=== PATIENT | male | born 1965 | race Caucasian/White ===

== ENCOUNTER → 2016-07-28 | Outpatient (CLI) | payer BC ==
[~2016-07-28] MED LIST: ACET-1256 PO; AZIT500T26 PO; CARV25TA PO; FURO80TA63 PO; LOSA1TAB38 PO; LPT40 PO; MULT-1027 PO; OMEG10007 PO; PANT40TA PO; POTA20TA16 PO; VLT/75 PO
--- NOTE | 2016-07-28 14:43 | DIAGNOSTIC IMAGING REPORT ---
CHEST 2 VIEWS ROUTINE CLINICAL HISTORY: R06.02 Shortness of breath COMPARISON STUDY: 04/12/2016 FINDINGS: Prominent pulmonary vasculature. Mild cardiac enlargement. Permanent unipolar cardiac pacemaker/fibrillator. IMPRESSION: Congestive failure Electronically signed by: James Nelson M.D. 07/28/2016 2:42 PM Dictated Date/Time: 07/28/2016 2:41 PM
== END | disposition home or self-care (01) ==
LOC: C.RAD1850 14:29
PROVIDERS: ATTEND Internal Medicine
DX: R06.02 Shortness of breath (principal)

== ENCOUNTER → 2016-08-03 | Outpatient (CLI) | payer BC ==
[2016-08-03 17:16] LABS: BASO % 0.4 %; BASO ABS # 0.03 K/uL (0-0.2); COMPLETE YES; EOS % 4.6 %; IG% 0.3 %; LYMPH % 19.1 %; LYMPH ABS # 1.32 K/uL (1.2-3.4); MEAN CELL VOLUME 89.3 fL (80-100); MEAN CORPUSCULAR HGB CONC 33.6 g/dl (32-36); NEUT % 66.6 %; PLATELET COUNT 161 K/uL (130-400); RED BLOOD COUNT 4.03 M/uL (4.7-6.1); WHITE BLOOD COUNT 6.91 K/uL (4.8-10.8)
[2016-08-03 17:29] LABS: ALT/SGPT 26 U/L (12-78); AST/SGOT 18 U/L (15-37); BLOOD UREA NITROGEN 28 mg/dl (7-18); BUN/CREATININE RATIO 28.2 (10-20); CALCIUM 9.1 mg/dl (8.5-10.1); CARBON DIOXIDE 28 mmol/L (21-32); CHLORIDE 109 mmol/L (98-107); CREATININE 0.98 mg/dl (0.60-1.40); GLUCOSE 88 mg/dl (70-99); SODIUM 146 mmol/L (136-145)
[2016-08-03 17:31] LABS: ALB/GLOB RATIO 1.2 (0.9-2); ALKALINE PHOSPHATASE 68 U/L (45-117)
== END | disposition home or self-care (01) ==
LOC: C.LABPBG 14:13
PROVIDERS: ATTEND Internal Medicine
DX: D64.9 Anemia, unspecified (principal); I42.8 Other cardiomyopathies

== ENCOUNTER → 2016-08-16 | Outpatient (CLI) | payer BC ==
[2016-08-16 13:41] LABS: BLOOD UREA NITROGEN 27 mg/dl (7-18); BUN/CREATININE RATIO 24.6 (10-20); CALCIUM 8.7 mg/dl (8.5-10.1); CARBON DIOXIDE 27 mmol/L (21-32); CHLORIDE 109 mmol/L (98-107); GLUCOSE 109 mg/dl (70-99); POTASSIUM 4.1 mmol/L (3.5-5.1); SODIUM 145 mmol/L (136-145)
[2016-08-16 13:44] LABS: CHOLESTEROL 60 mg/dl (0-200); CHOLESTEROL/HDL RATIO 2.2; HDL CHOLESTEROL 27 mg/dl; LDL CHOLESTEROL CALCULATED 17 mg/dl; TRIGLYCERIDES 81 mg/dl (0-150); VERY LOW DENSITY LIPOPROT CALC 16 mg/dl
== END | disposition home or self-care (01) ==
LOC: C.LABPBG 09:19
PROVIDERS: ATTEND Internal Medicine
DX: Z00.00 Encounter for general adult medical examination without abnormal findings (principal); I50.20 Unspecified systolic (congestive) heart failure

== ENCOUNTER → 2016-10-26 | Outpatient (CLI) | payer BC ==
[~2016-10-26] MED LIST changes: -PANT40TA PO
[2016-10-26 18:24] LABS: BLOOD UREA NITROGEN 35 mg/dl (7-18); BUN/CREATININE RATIO 25.1 (10-20); CALCIUM 9.4 mg/dl (8.5-10.1); CARBON DIOXIDE 32 mmol/L (21-32); CHLORIDE 106 mmol/L (98-107); GLUCOSE 101 mg/dl (70-99); POTASSIUM 3.5 mmol/L (3.5-5.1); SODIUM 143 mmol/L (136-145)
== END | disposition home or self-care (01) ==
LOC: C.LABPBG 12:20
PROVIDERS: ATTEND Family Medicine
DX: I50.20 Unspecified systolic (congestive) heart failure (principal)

== ENCOUNTER → 2016-11-01 | Outpatient (CLI) | payer BC ==
[~2016-11-01] MED LIST changes: +OPTIRAY 320 IV PRN
--- NOTE | 2016-11-01 09:33 | DIAGNOSTIC IMAGING REPORT ---
CT SCAN OF THE ABDOMEN COMBO RENAL MASS PROTOCOL CLINICAL HISTORY: Indeterminant right renal lesion. Hepatomegaly. Elevated bilirubin. COMPARISON STUDY: Abdominal CT scans dated 05/02/2016 and 04/13/2016. TECHNIQUE: Before and following the IV administration of 93 cc of Optiray 320, CT scan of the abdomen is performed from the lung bases to the pelvic inlet utilizing renal mass protocol. Images are reviewed in the axial, sagittal, and coronal planes. IV contrast was administered without complication. Automated dose control exposure was utilized. CT DOSE: 3198.49 mGy.cm FINDINGS: Lung bases: The heart is enlarged and there is trace pericardial effusion. Pacemaker leads are noted. There is a small hiatal hernia. Calcified granulomas are noted at both lung bases. No airspace consolidation or pleural effusion is identified. Intralobular septal thickening suggests chronic congestive change. Liver: The contrast-enhanced liver is enlarged, measuring 24.2 cm in length. Hepatic attenuation is heterogeneous. No focal hepatic lesion is seen. There is no intrahepatic biliary ductal dilatation. The hepatic veins and portal veins are patent. Gallbladder: There are numerous calcified gallstones. The gallbladder is otherwise normal in appearance. Spleen: The spleen is enlarged, measuring 21.2 cm in length. Pancreas: Unremarkable. Adrenal glands: Unremarkable. Kidneys: There is a 3 mm nonobstructing calculus in the lower pole of the left kidney. There are 2 nonobstructing calculi in the interpolar right kidney measuring up to 7 mm. The contrast enhanced kidneys demonstrate cortical atrophy and are without hydronephrosis. The kidneys enhance and excrete symmetrically. Bilateral renal cysts measure up to 3.1 cm. Additional subcentimeter cortical hypodensities also likely represent cysts but are too small for definitive characterization. No enhancing renal cortical mass is identified. The focal heterogeneity within the interpolar right kidney seen on 05/02/2016 is no longer apparent. Mild cortical scarring is now suggested at this site. There is no evidence of urothelial lesion within the renal pelvis bilaterally or involving the proximal ureters. Abdominal vasculature: The abdominal aorta is normal in course and caliber noting mild atherosclerotic calcification. Bowel: Visualized portions of the small bowel and colon are normal in course and caliber. Peritoneum: There is trace perihepatic and perisplenic ascites. No intraperitoneal free air is seen. Numerous foci of induration within the ventral abdominal pannus are likely related to subcutaneous injections. Lymphadenopathy: None. Skeletal structures: The skeletal structures are osteopenic. No lytic or blastic lesions are seen. There are healed left anterior rib fractures. IMPRESSION: 1. There is no enhancing renal cortical mass. The focus of heterogeneity within the interpolar right kidney seen on 05/02/2016 is no longer identified. Mild cortical scarring is now suggested at this site and the prior abnormality was likely on an infectious/inflammatory basis. 2. There is no evidence of urothelial lesion within the renal pelvis bilaterally or involving the proximal ureters. 3. Bilateral nephrolithiasis. 4. Cholelithiasis. 5. Hepatosplenomegaly. 6. Trace perihepatic and perisplenic ascites. 7. Cardiomegaly. 8. Additional findings as above. Electronically signed by: Blanco Bazan M.D. 11/01/2016 9:32 AM Dictated Date/Time: 11/01/2016 9:17 AM
== END | disposition home or self-care (01) ==
LOC: C.CTS 08:48
PROVIDERS: ATTEND Physician Assistant
DX: R17 Unspecified jaundice (principal); R93.2 Abnormal findings on diagnostic imaging of liver and biliary tract; N20.0 Calculus of kidney; K80.20 Calculus of gallbladder without cholecystitis without obstruction; R16.2 Hepatomegaly with splenomegaly, not elsewhere classified; I51.7 Cardiomegaly

== ENCOUNTER → 2016-12-13 | Outpatient (CLI) | payer BC ==
[~2016-12-13] MED LIST changes: -OPTIRAY 320 IV PRN
[2016-12-13 14:03] LABS: BLOOD UREA NITROGEN 36 mg/dl (7-18); BUN/CREATININE RATIO 27.7 (10-20); CALCIUM 9.4 mg/dl (8.5-10.1); CARBON DIOXIDE 30 mmol/L (21-32); CHLORIDE 104 mmol/L (98-107); GLUCOSE 125 mg/dl (70-99); POTASSIUM 3.4 mmol/L (3.5-5.1); SODIUM 142 mmol/L (136-145)
== END | disposition home or self-care (01) ==
LOC: C.LABPBG 10:28
PROVIDERS: ATTEND Physician Assistant
DX: I50.20 Unspecified systolic (congestive) heart failure (principal)

== ENCOUNTER → 2017-03-15 | Outpatient (CLI) | payer BC ==
[2017-03-15 13:07] LABS: MEAN CELL VOLUME 92.9 fL (80-100); MEAN CORPUSCULAR HEMOGLOBIN 32.5 pg (25-34); MEAN PLATELET VOLUME 10.1 fL (7.4-10.4); PLATELET COUNT 155 K/uL (130-400); RED BLOOD COUNT 3.66 M/uL (4.7-6.1); WHITE BLOOD COUNT 6.75 K/uL (4.8-10.8)
[2017-03-15 13:45] LABS: ALT/SGPT 37 U/L (12-78); AST/SGOT 30 U/L (15-37); BLOOD UREA NITROGEN 42 mg/dl (7-18); BUN/CREATININE RATIO 28.3 (10-20); CALCIUM 8.8 mg/dl (8.5-10.1); CARBON DIOXIDE 30 mmol/L (21-32); CHLORIDE 105 mmol/L (98-107); GLUCOSE 126 mg/dl (70-99); POTASSIUM 3.3 mmol/L (3.5-5.1); SODIUM 143 mmol/L (136-145)
== END | disposition home or self-care (01) ==
LOC: C.LABPBG 10:04
PROVIDERS: ATTEND Family Medicine
DX: D64.9 Anemia, unspecified (principal); I50.9 Heart failure, unspecified; I10 Essential (primary) hypertension; E78.2 Mixed hyperlipidemia

== ENCOUNTER → 2017-05-17 | Outpatient (CLI) | payer BC ==
[2017-05-17 16:24] LABS: HEMATOCRIT 35.5 % (42-52); MEAN CELL VOLUME 91.3 fL (80-100); MEAN CORPUSCULAR HEMOGLOBIN 31.9 pg (25-34); MEAN CORPUSCULAR HGB CONC 34.9 g/dl (32-36); MEAN PLATELET VOLUME 10.4 fL (7.4-10.4); PLATELET COUNT 132 K/uL (130-400); RED BLOOD COUNT 3.89 M/uL (4.7-6.1); WHITE BLOOD COUNT 7.48 K/uL (4.8-10.8)
[2017-05-17 16:26] LABS: BASO % 0.3 %; BASO ABS # 0.02 K/uL (0-0.2); COMPLETE YES; EOS % 2.3 %; IG% 0.5 %; LYMPH % 16.4 %; LYMPH ABS # 1.23 K/uL (1.2-3.4); MONO % 8.3 %; NEUT % 72.2 %; PLT ESTIMATE DECREASED
[2017-05-17 16:27] LABS: BLOOD UREA NITROGEN 30 mg/dl (7-18); BUN/CREATININE RATIO 23.2 (10-20); CALCIUM 9.1 mg/dl (8.5-10.1); CARBON DIOXIDE 29 mmol/L (21-32); CHLORIDE 104 mmol/L (98-107); CREATININE 1.31 mg/dl (0.60-1.40); GLUCOSE 101 mg/dl (70-99); MAGNESIUM 2.1 mg/dl (1.8-2.4); POTASSIUM 3.4 mmol/L (3.5-5.1); SODIUM 140 mmol/L (136-145)
== END | disposition home or self-care (01) ==
LOC: C.LAB1850 15:30
PROVIDERS: ATTEND Physician Assistant Medical
DX: I42.8 Other cardiomyopathies (principal); I49.01 Ventricular fibrillation

== ENCOUNTER → 2017-05-29 | Outpatient (CLI) | payer BC ==
[2017-05-29 11:50] LABS: BLOOD UREA NITROGEN 34 mg/dl (7-18); BUN/CREATININE RATIO 26.4 (10-20); CALCIUM 9.2 mg/dl (8.5-10.1); CARBON DIOXIDE 32 mmol/L (21-32); CHLORIDE 104 mmol/L (98-107); CREATININE 1.29 mg/dl (0.60-1.40); GLUCOSE 124 mg/dl (70-99); POTASSIUM 3.3 mmol/L (3.5-5.1); SODIUM 142 mmol/L (136-145)
== END | disposition home or self-care (01) ==
LOC: C.LABPBG 10:20
PROVIDERS: ATTEND Physician Assistant
DX: I50.20 Unspecified systolic (congestive) heart failure (principal)

== ENCOUNTER → 2017-07-12 | Outpatient (CLI) | payer BC ==
[~2017-07-12] MED LIST changes: +CLOTCRE33 TOP; +METO5TAB25 PO
[2017-07-12 15:34] LABS: HEMATOCRIT 37.5 % (42-52); HEMOGLOBIN 13.5 g/dL (14.0-18.0); MEAN CELL VOLUME 90.1 fL (80-100); MEAN CORPUSCULAR HEMOGLOBIN 32.5 pg (25-34); MEAN PLATELET VOLUME 10.4 fL (7.4-10.4); PLATELET COUNT 155 K/uL (130-400); RED CELL DISTRIBUTION WIDTH CV 15.5 % (11.5-14.5); RED CELL DISTRIBUTION WIDTH SD 49.9 fL (36.4-46.3); WHITE BLOOD COUNT 8.44 K/uL (4.8-10.8)
[2017-07-12 15:45] LABS: BLOOD UREA NITROGEN 49 mg/dl (7-18); CALCIUM 9.9 mg/dl (8.5-10.1); CARBON DIOXIDE 31 mmol/L (21-32); CREATININE 1.49 mg/dl (0.60-1.40); GLUCOSE 109 mg/dl (70-99); POTASSIUM 3.3 mmol/L (3.5-5.1); SODIUM 139 mmol/L (136-145)
== END | disposition home or self-care (01) ==
LOC: C.LAB1850 14:10
PROVIDERS: ATTEND Internal Medicine Clinical Cardiac Electrophysiology
DX: Z01.818 Encounter for other preprocedural examination (principal)

== ENCOUNTER 2017-07-13 09:38 | Observation (INO) | payer BC ==
[~2017-07-13] VITALS: Ht 175.3 cm; Wt 144.9 kg
[~2017-07-13 09:38] MED LIST changes: -CLOTCRE33 TOP; -METO5TAB25 PO
[2017-07-13] MEDS ORDERED: CLOTCRE33 TOP (09:56)
[2017-07-13] MEDS ORDERED: METO5TAB25 PO (09:56)
--- NOTE | 2017-07-13 09:56 | History & Physical Bridge Note ---
H&P Re-Evaluation Bridge Note: I have examined the patient, reviewed the History & Physical and in the interval since the performance of the History & Physical I have noted the following changes of clinical significance: No changes noted
[2017-07-13 10:04] VITALS: BP 105/53; PULSE 60; TEMP 36.8; O2SAT 98; BMI 48.0
[2017-07-13] MEDS ORDERED: LIDOCAINE HCL 1% 20 ML VIAL ONE (10:09)
[2017-07-13] MEDS ORDERED: BUPIVACAINE 0.5 % 5 MG/1 ML MPF 30ML VIAL ONE (10:09)
[2017-07-13] MEDS ORDERED: BACITRACIN 50000 UNIT VIAL ONE (10:09)
[2017-07-13] MEDS ORDERED: MIDAZOLAM HCL 5 MG/ML 1 ML VIAL ONE ×2 (11:05→11:31)
[2017-07-13] MEDS ORDERED: FENTANYL CITRATE INJ 50 MCG/1 ML 2 ML VIAL ONE ×2 (11:05→11:31)
[2017-07-13] MEDS ORDERED: CEFAZOLIN SOD 1 GM VIAL ONE (11:07)
--- NOTE | 2017-07-13 11:16 | Pre Sedation Assessment ---
Pre Sedation Assessment General Date of Sedation: Jul 13, 2017. Vital Signs Past 12 Hours Date Time Temp Pulse Resp B/P (MAP) Pulse Ox O2 Delivery O2 Flow Rate FiO2 07/13/17 10:04 36.8 60 20 105/53 (70) 98 Room Air Review Cardiovascular: regular rate, rhythm Lungs: lungs clear Pre-Sedation Airway Assessment Smoking Status: Former Smoker Hx of Sleep Apnea: Yes Short Thick Neck: Yes Thyro-mental Distance: > 3 Finger Breadths Oral Cavity: WNL Mallampati Classification: Class I ASA Classification: Class III NPO Status Date of Last Intake of Fluids: Jul 12, 2017 Time of Last Intake of Fluids: 2029 Date of Last Intake of Solids: Jul 12, 2017 Time of Last Intake of Solids: 2029 Procedure Planning Contraindications for Sedation: None Current Medications Reviewed: Yes Notes The planned sedation has been discussed with the patient. Informed Consent was obtained. I have identified the patient, determined the appropriateness of sedation and have assessed the patient immediately prior to the procedure. All medicine(s) and interventions are by my order.
--- NOTE | 2017-07-13 12:14 | [facility] Operative Report ---
Operative Report Date of Service Jul 13, 2017. Operative Report Procedure performed: Upgrade of single chamber ICD to dual chamber ICD Staff oil expeller: Ravindra Moran MD Indication: The patient is a 52-year-old gentleman with a history of cardiomyopathy and ventricular fibrillation. He previously undergone implantation of a single-chamber ICD. He was noted in the outpatient setting to have frequent therapies for ventricular fibrillation. All of these appear to be preceded by episodes of ventricular pacing due to post PVC pauses. Programming in the outpatient setting to involve more ventricular pacing did not resolve this issue. It was felt that with the addition of an atrial lead we could avoid ventricular pacing and perhaps overdrive his intrinsic heart rate to avoid significant ventricular ectopy. Procedure in detail: The patient was informed of the risks benefits and alternatives to the intended procedure. He understood such which proceed. He was taken to the electrophysiology suite in a fasting state. A preoperative antibiotic was administered. The patient was monitored electrocardiographically throughout today's procedure and conscious sedation was administered per protocol. The left upper pectoral area is prepped and draped in usual sterile fashion. This area was anesthetized using subcutaneous administration of a xylocaine and Marcaine solution. An incision was made at this site and carried down to the previously implanted pulse generator using sharp dissection. Electrocautery was also used for dissection as well as for hemostasis. The previously implanted pulse generator and leads were then freed from the surrounding scar tissue. A partial capsulotomy was performed. The left axillary vein was subsequently accessed using modified Seldinger technique and a 7 Nigerien sheath was placed over a guidewire at this site. This sheath was used to facilitate passage of the pacing lead to the right atrium under fluoroscopic guidance. Adequate sensing and threshold parameters were obtained prior to Active fixation of the lead to the endocardial surface. The proximal portion of lead was then sutured to the prepectoralis fascia using nonabsorbable suture. The right ventricular lead was detached from the previously implanted pulse generator. The right ventricular lead and new atrial lead were then attached to a new pulse generator. The pocket was irrigated with antibiotic solution and leads and device were then placed back in the pocket the pocket was subsequently closed in 3 layers of absorbable suture. Steri-Strips and a sterile dressing were applied. The device was tested noninvasively prior to conclusion the procedure. The patient tolerated procedure well. There were no immediate complications. Equipment used: Explanted pulse generator. Circulation Crew Leader [employer]. Model number D VBC 3D 4 serial number [id number] New pulse generator: Circulation Crew Leader Medtronic. Model number DD M B1 V4 serial number [id number] New right atrial lead: Circulation Crew Leader Medtronic. Model 4. 076. Serial number [id number] Retained right ventricular lead: Circulation Crew Leader Medtronic. Model 6935 mm serial number [id number] Measured data: Right atrial lead: P-waves measured 2.1 millivolts. Pacing threshold 0.5 volts at 0.4 milliseconds with a pacing impedance of 399 Ohms Right ventricular lead: R-waves measured 18.1 millivolts. Pacing threshold was 0.75 volts at 0.4 milliseconds with a pacing impedance of 418 Ohms Impression: Successful upgrade of single-chamber ICD to dual-chamber ICD I attest to the content of the Intraoperative Record and any orders documented therein. Any exceptions are noted below.
[2017-07-13] MEDS ORDERED: ACETAMINOPHEN 325 MG TAB PO PRN (12:15)
[2017-07-13 13:10] VITALS: BP 90/48; PULSE 108; TEMP 36.4; O2SAT 94; Ht 175.3 cm; Wt 144.9 kg
[2017-07-13] MEDS ORDERED: IV FLUIDS COMPLETED PRN (13:45)
[2017-07-13] MEDS ORDERED: PNEUMOCOCCAL POLYSACCHARIDES 25 MCG/0.5 ML VIAL/SYR IM. ONE (14:15)
[2017-07-13] MEDS ORDERED: PNEUMOCOCCAL ADMINISTRATION CHARGE ONE (14:15)
[2017-07-13] MEDS: POTASSIUM CHLORIDE 20 MEQ TABCR PO SCH ×2 (14:36→20:54)
[2017-07-13] MEDS: OXYCODONE HCL IR 5 MG TAB (IMMEDIATE RELEASE) PO PRN ×2 (14:38→20:51)
[2017-07-13 16:00] VITALS: BP 108/44; PULSE 70; TEMP 36.8; O2SAT 96
[2017-07-13] MEDS: FUROSEMIDE 80 MG TAB PO SCH (16:28)
[2017-07-13 19:33] VITALS: BP 118/51; PULSE 71; TEMP 36.8; O2SAT 94
[2017-07-13] MEDS: CEFAZOLIN IV 2,000 MG in SYRINGE 0 ML IV SCH (19:55)
[2017-07-13] MEDS: CARVEDILOL 12.5 MG TAB PO SCH (20:52)
[2017-07-13] MEDS: DICLOFENAC SOD EC 75 MG TABCR PO SCH (20:53)
[2017-07-13] MEDS ORDERED: ATORVASTATIN 40 MG TAB PO SCH (21:00)
[2017-07-13] MEDS ORDERED: NURSING VERBAL MED ORDER ONE (21:30)
[2017-07-13 22:55] VITALS: BP 135/72; PULSE 70; TEMP 36.6; O2SAT 96
[2017-07-14] MEDS: OXYCODONE HCL IR 5 MG TAB (IMMEDIATE RELEASE) PO PRN (01:32)
[2017-07-14 03:00] VITALS: BP 128/76; PULSE 67; TEMP 36.4; O2SAT 97
[2017-07-14] MEDS: CEFAZOLIN IV 2,000 MG in SYRINGE 0 ML IV SCH (03:19)
--- NOTE | 2017-07-14 07:03 | DIAGNOSTIC IMAGING REPORT ---
CHEST 2 VIEWS ROUTINE CLINICAL HISTORY: EXACT TIME ORDERED Evaluate for pneumothorax and lead placement COMPARISON STUDY: 07/28/2016 FINDINGS: Currently is a permanent bipolar cardiac pacemaker/fibrillator. Secondary lead has been placed. No evidence pneumothorax. Lungs are clear. Mild stable cardiomegaly. IMPRESSION: Bipolar cardiac pacemaker/fibrillator with leads in good position. No evidence for pneumothorax. The above report was generated using voice recognition software. It may contain grammatical, syntax or spelling errors. Electronically signed by: James Nelson M.D. 07/14/2017 7:01 AM Dictated Date/Time: 07/14/2017 7:00 AM
[2017-07-14] MEDS ORDERED: RXC5 PO (07:57)
--- NOTE | 2017-07-14 07:59 | Discharge Instructions ---
Discharge Instructions Date of Service Jul 14, 2017. Admission Reason for Admission: Dual Lead,Cardiomyopathy *Dr Moran To Do* Discharge Discharge Diagnosis / Problem: Ventricular fibrillation. S/P ICD upgrade to dual chamber Discharge Goals Goal(s): Therapeutic intervention Activity Recommendations Activity Limitations: as noted below Lifting Limitations: no more than 10 pounds Exercise/Sports Limitations: until after follow-up appointment May Resume Sexual Activity: after one week Shower/Bathe: keep incision dry Driving or Machine Use: resume 1 day after discharge Keep wound dry and Steri-Strips intact until follow-up appointment next week. No lifting left arm above shoulder or behind neck for 6 weeks. . Instructions / Follow-Up Instructions / Follow-Up Follow-up in the cardiology clinic next week as previously scheduled Current Hospital Diet Patient's current hospital diet: AHA Diet (Heart Healthy) Discharge Diet Recommended Diet: AHA Diet (Heart Healthy) Procedures Procedures Performed: Upgrade of single-chamber ICD to dual-chamber ICD Pending Studies Studies pending at discharge: no Medical Emergencies . Who to Call and When: Medical Emergencies: If at any time you feel your situation is an emergency, please call 911 immediately. . Non-Emergent Contact Non-Emergency issues call your: Power Supply Engineer Call Non-Emergent contact if: you have a fever, wound has increased redness, wound has increased pain . . "Provider Documentation" section prepared by Juve Moran. . VTE Core Measure Inpt VTE Proph given/why not?: Treatment not indicated
[2017-07-14 08:11] VITALS: BP 136/65; PULSE 74; TEMP 36.8; O2SAT 98
--- NOTE | 2017-07-14 08:18 | Discharge Summary ---
Discharge Summary Admission Date: Jul 13, 2017 at 12:16 Discharge Date: Jul 14, 2017 Discharge Disposition: Home Primary Diagnosis: Ventricular fibrillation Secondary Diagnoses/Problems: Medical Problems: (1) Acidosis Status: Acute (2) Acute bronchitis Status: Acute (3) Anemia Status: Acute (4) Cardiac arrest Status: Acute (5) Elevated troponin Status: Acute (6) Pulmonary infiltrate Status: Acute (7) Respiratory failure Status: Acute (8) Ventricular arrhythmia Status: Acute Procedures: Upgrade of single-chamber ICD to dual-chamber Medtronic ICD Discharge Instructions Last Recorded Wt (Kilograms): 144.900 Activity Recommendations: limitations as noted below Return to School/Work: no limitations Diet At Discharge: resume previous diet Allergies: Coded Allergies: No Known Allergies (Unverified , 04/12/16) Special Care: Call your doctor if: * Temperature above 101 degrees * Pain not relieved by pain medicine ordered * There is increased drainage or redness from any incision * You have any unanswered questions or concerns. Avoid all tobacco products. If you need help to stop smoking, call [place]'s FREE QUITLINE at . This is a free call. Admission HPI Patient is a 52-year-old gentleman with a history of a cardiomyopathy and prior implant of a single-chamber ICD. He was noted the outpatient setting have several therapies delivered. All these appear to have occurred with post PVC pauses and ventricular pacing. He was felt that with the addition of a right atrial lead we could provide overdrive pacing and avoid ventricular pacing. This hopefully reduces therapies. Hospital Course On the day of admission the patient underwent the upgrade mentioned above. His postprocedure course was uncomplicated. He has some mild discomfort at the implant site. At the time of discharge there was no evidence of hematoma or drainage. His chest x-ray demonstrated good lead position without complication. Interrogation of the device this morning revealed normal function. No events recorded during his hospitalization. Total time spent on discharge = This includes examination of the patient, discharge planning, medication reconciliation, and communication with other providers.
[2017-07-14] MEDS: CARVEDILOL 12.5 MG TAB PO SCH (08:23)
[2017-07-14] MEDS: DICLOFENAC SOD EC 75 MG TABCR PO SCH (08:24)
[2017-07-14] MEDS: POTASSIUM CHLORIDE 20 MEQ TABCR PO SCH (08:24)
[2017-07-14] MEDS: FUROSEMIDE 80 MG TAB PO SCH (08:24)
[2017-07-14] MEDS ORDERED: LOSARTAN POTASSIUM 50 MG TAB PO SCH (09:00)
[2017-07-14] MEDS ORDERED: METOLAZONE 5 MG TAB PO SCH (09:00)
[2017-07-14] MEDS ORDERED: ATORVASTATIN 40 MG TAB PO SCH (09:00)
[2017-07-14 10:06] VITALS: BP 136/65; PULSE 74; TEMP 36.8; O2SAT 98
== END 2017-07-14 11:42 | disposition home or self-care (01) ==
LOC: C.ACU 09:38 → ENRESERV 12:10 → C.MSICU 12:16 → C.2T 19:07
PROVIDERS: ADMIT Internal Medicine Clinical Cardiac Electrophysiology; ATTEND Internal Medicine Clinical Cardiac Electrophysiology
DX: I49.01 Ventricular fibrillation (principal); I42.8 Other cardiomyopathies; I47.2 Ventricular tachycardia; Z95.810 Presence of automatic (implantable) cardiac defibrillator; I50.20 Unspecified systolic (congestive) heart failure; E66.01 Morbid (severe) obesity due to excess calories; G47.33 Obstructive sleep apnea (adult) (pediatric); Z87.891 Personal history of nicotine dependence

== ENCOUNTER → 2017-10-10 | Outpatient (CLI) | payer BC ==
[~2017-10-10] MED LIST changes: +CLOTCRE33 TOP; +METO5TAB25 PO; +POTA-639 PO; -POTA20TA16 PO; +RXC5 PO
[2017-10-10 16:50] LABS: ALBUMIN 4.1 gm/dl (3.4-5.0); ALT/SGPT 43 U/L (12-78); AST/SGOT 31 U/L (15-37); BLOOD UREA NITROGEN 27 mg/dl (7-18); CALCIUM 8.8 mg/dl (8.5-10.1); CARBON DIOXIDE 32 mmol/L (21-32); CHOLESTEROL 89 mg/dl (0-200); CREATININE 1.18 mg/dl (0.60-1.40); GLUCOSE 120 mg/dl (70-99); POTASSIUM 3.1 mmol/L (3.5-5.1); SODIUM 140 mmol/L (136-145)
[2017-10-10 16:58] LABS: ALKALINE PHOSPHATASE 67 U/L (45-117); LDL CHOLESTEROL CALCULATED 7 mg/dl; TOTAL PROTEIN 7.6 gm/dl (6.4-8.2)
[2017-10-11 06:25] LABS: HEMOGLOBIN A1C 4.4 % (4.5-5.6)
== END | disposition home or self-care (01) ==
LOC: C.LABPBG 11:18
PROVIDERS: ATTEND Family Medicine
DX: I42.9 Cardiomyopathy, unspecified (principal); I50.9 Heart failure, unspecified; I10 Essential (primary) hypertension; E78.2 Mixed hyperlipidemia; E87.6 Hypokalemia; Z12.5 Encounter for screening for malignant neoplasm of prostate

== ENCOUNTER 2021-10-13 09:32 | Inpatient (IN) ==
[2021-10-13] MEDS ORDERED: ACETAMINOPHEN 500 MG TAB PO STA (09:49)
[2021-10-13] MEDS ORDERED: cefTRIAXone SODIUM 2,000 MG/70 ML BAG IV STA (09:51)
[2021-10-13] MEDS ORDERED: metOLazone 2.5 MG TABLET PO ONE (09:53)
--- NOTE | 2021-10-13 09:59 | Emergency Department Note ---
Impression & Plan Severe sepsis with septic shock, Systolic congestive heart failure, Lactic acidosis, Soft tissue infection, VERONA (acute kidney injury) ED Provider Note Provider: Surya Brand MD DATE OF SERVICE: 10/13/2021 CHIEF COMPLAINT: Shortness of breath, fever, chills HISTORY OF PRESENT ILLNESS: Patient is a 56-year-old gentleman history of CHF, arrhythmia with AICD, cardiomyopathy, hypertension, GI bleed, restrictive lung disease presenting here today via ambulance from his home. States overnight is developed chills and fever and worsening shortness of breath. Was unable to get from his chair to the bed last night and slept in his chair. Patient states his right leg has begun to hurt overnight as legs are more swollen prickly on the right which is having some pain. Patient denies any trauma here or falls. Patient denies chest pain or abdominal pain. Patient denies significant sinus congestion or sore throat but reported he is feeling fevers. He took his morning Bumex but did not take Tylenol this morning. No sick contacts reported. Patient states he is immunized for COVID. EMS report the patient was hypoxic at home initially in the mid 80s. Patient did not use a CPAP last night he was not in his bed. Patient states he felt too weak to get out of his bed. Patient denies AICD shocks REVIEW OF SYSTEMS: A total of 10 review of systems was obtained and negative except as stated above in the HPI. PAST MEDICAL HISTORY: As noted above MEDICATIONS: Reviewed home medications with the patient SOCIAL HISTORY: Non-smoker, but uses medical marijuana. PHYSICAL EXAM: GENERAL: alert and oriented seated on stretcher with some mild pursed lip breathing. Head: normocephalic and atraumatic EYES: No injection, discharge or icterus. NECK: Trachea midline. Supple. ENT: Mucous membranes pink and moist. LUNGS: Airway patent. No retractions but some mild pursed lip breathing noted. Breath sounds clear with good air entry bilaterally. HEART: Regular rate and rhythm. No chest wall tenderness with left upper chest subcutaneous AICD appreciated without surrounding erythema or tenderness. ABDOMEN: Soft, obese, and non-tender, without guarding or rebound. SKIN: Acyanotic, warm, dry EXTREMITIES: Patient with right greater than left 2+ edema with some redness to the right anterior lewis with mild tenderness here. Lower legs are dry to touch. NEUROLOGICAL: No focal deficits. No aphasia. No facial droop or slurred speech. Normal strength and tone in the extremities. Sensation to gross touch normal. EK bpm atrially paced rhythm without PVC. No acute ST segment elevation noted with a QTC of 513 and a nonspecific interventricular conduction delay. CONTINUOUS CARDIAC MONITORING: was ordered and showed a heart rate of 60s-80s bpm in normal sinus rhythm Patient's laboratory studies and imaging reviewed. Differential includes Reactive airway disease, pneumonia, pneumothorax, COPD, CHF, infections, cardiac ischemia, pulmonary embolism, musculoskeletal, gordo rointestinal, as well as other pathologies. IMPRESSION/MEDICAL DECISION MAKING: Patient Shivam with fever and some increased shortness of breath. Given Tylenol here initially appears clinically somewhat fluid overloaded initially did take his Bumex this morning. History of CHF. Pacemaker interrogated without significant findings. Chest x-ray also appears to show some pulmonary edema without clear findings of pneumonia. Right lower leg appears more edematous than the left although some on both. Considered ultrasound of the right lower extremity to exclude DVT although no recent travels reported. Patient given a dose of metolazone given his concern initially for some fluid overload. Patient does have an elevated white blood cell count believe he is septic. Covered empirically with doxycycline and ceftriaxone initially. While here the patient began to experience some hypotension given a small 500 cc fluid bolus although I think systemically he is still somewhat fluid overloaded. Lactate is somewhat elevated. Required vasopressor support with norepinephrine here as blood pre ssure dropped to the 70s on the patient's mentating appropriate. Patient had improvement of blood pressures and symptoms with this. Will defer any ultrasound at this time. Discussed with the hospitalist team as well as the patient findings and further care here at the hospital. Patient does appear to have some amount of VERONA. Patient covered more broadly given his clinical deterioration with daptomycin in discussion with pharmacy. Will defer significant additional IV fluids given concern for developing pulmonary edema and CHF. Patient intermittently using a little bit oxygen primarily for comfort as he does not appear to be significantly hypoxic at rest. DIAGNOSIS: Sepsis or septic shock 2/2 lower extremity soft tissue cellulitis, pulmonary edema, lactic acidosis, VERONA DISPOSITION: Hospitalist will evaluate Patient was agreeable with this plan. Critical Care I have personally spent 42 minutes of critical care time in the direct management of this patient. This includes bedside care, interpretation of diagnostic studies, and testing, discussion with consultants, patient, and other required patient management activities. These 42 minutes is in excess of all separately billable procedures. Past Med/Surg History Medical History Cardiomyopathy, nonischemic 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 Dyslipidemia Elevated bilirubin Former smoker Hemoptysis Metabolic syndrome Non-rheumatic mitral regurgitation Obesity, morbid, BMI 40.0-49.9 Obstructive sleep apnea of adult Shortness of breath Systolic congestive heart failure Ventricular tachycardia (paroxysmal) Social History (Updated 10/13/21 @ 12:47 by Twin Khalil MD) Smoking Status: Former smoker Tobacco Type: Cigarettes Second Hand Exposure: No; Hx Alcohol Use: No Hx Substance Use: Yes (Medical Marijuana use for knee pain) Communication Ability: Effective 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: No Beliefs That Will Affect Care: None Current Living Situation: Family Feels Safe at Home: Yes Assistive Devices: None Allergies Allergies Allergy/AdvReac Type Severity Reaction Status Date / Time No Known Allergies Allergy Verified 10/13/21 11:07 Home Meds Home Medications Medication Instructions Recorded Confirmed acetaminophen 500 mg tablet 500 mg PO Q4H PRN tab 03/28/19 10/13/21 clotrimazole-betamethasone 1 1 appln TOPICAL DIRECTED PRN gm 03/28/19 10/13/21 %-0.05 % topical cream omega-3 fatty acids 1,250 mg 1,250 mg PO DAILY 03/28/19 10/13/21 capsule potassium chloride 20 mEq 40 meq PO TID tab 06/03/19 10/13/21 tablet,extended release(part/cryst) (Klor-Con M) multivitamin 1 tab PO DAILY 12/01/19 10/13/21 allopurinol 100 mg tablet 300 mg PO DAILY tab 08/24/20 10/13/21 cholecalciferol (vitamin D3) 50 50 mcg PO DAILY 04/05/21 10/13/21 mcg (2,000 unit) capsule atorvastatin 80 mg tablet 80 mg PO HS 10/13/21 10/13/21 Previous Rx's Medication Instructions Recorded losartan 100 mg tablet 100 mg PO DAILY #30 tab 02/19/19 Auto Titrating CPAP #1 ea 03/16/20 CPAP Supplies #1 ea 03/16/20 amiodarone 400 mg tablet 200 mg PO DAILY #45 tab 10/05/20 bumetanide 2 mg tablet 2 mg PO BID #60 tab 10/05/20 carvedilol 25 mg tablet 25 mg PO BID #180 tab 11/06/20 metolazone 5 mg tablet 5 mg PO DAILY PRN #30 tab 04/01/21 spironolactone 25 mg tablet 12.5 mg PO DAILY #45 tab 09/20/21 Results & Data (ED) Vital Signs Vital Signs - 24 hr 10/13/21 09:41 10/13/21 09:43 10/13/21 10:27 Temperature 39.6 C H Temperature Source Oral Pulse Rate 83 83 77 Pulse Rate [Apical] Pulse Rate from SpO2 Sensor 83 Pulse Rhythm Regular Pulse Rhythm [Apical] Pulse Strength Normal Pulse Strength [Apical] Respiratory Rate 21 26 H 21 Respiratory Effort / Characteristics Labored Respiratory Depth Normal Respiratory Pattern Regular Blood Pressure 96/49 L 96/49 L Blood Pressure [Left Arm] Blood Pressure Mean 64 64 Blood Pressure Mean [Left Arm] Blood Pressure Position [Left Arm] Pulse Oximetry 91 94 98 Oxygen Delivery Method Room Air Room Air Nasal Cannula Oxygen Flow Rate 3 Sepsis Recent Fever Within 48 Hours Yes Sepsis New/Unexplained Change in Mental Status N/A Sepsis Action Taken by Nursing Physician Notified 10/13/21 10:30 10/13/21 10:59 10/13/21 11:06 Temperature 38.3 C H Temperature Source Oral Pulse Rate 76 70 Pulse Rate [Apical] Pulse Rate from SpO2 Sensor 76 Pulse Rhythm Pulse Rhythm [Apical] Pulse Strength Pulse Strength [Apical] Respiratory Rate 25 H 30 H Respiratory Effort / Characteristics Respiratory Depth Respiratory Pattern Blood Pressure 92/47 L 95/47 L Blood Pressure [Left Arm] Blood Pressure Mean 62 63 Blood Pressure Mean [Left Arm] Blood Pressure Position [Left Arm] Pulse Oximetry 98 98 Oxygen Delivery Method Nasal Cannula Nasal Cannula Oxygen Flow Rate 3 3 Sepsis Recent Fever Within 48 Hours Sepsis New/Unexplained Change in Mental Status Sepsis Action Taken by Nursing 10/13/21 11:34 10/13/21 11:35 10/13/21 11:41 Temperature 38.4 C H Temperature Source Oral Pulse Rate 75 Pulse Rate [Apical] 63 Pulse Rate from SpO2 Sensor 73 Pulse Rhythm Pulse Rhythm [Apical] Regular Pulse Strength Pulse Strength [Apical] Normal Respiratory Rate 27 H 18 22 Respiratory Effort / Characteristics Non-Labored Respiratory Depth Normal Respiratory Pattern Regular Blood Pressure 72/28 L 77/42 L Blood Pressure [Left Arm] 71/33 L 77/42 L Blood Pressure Mean 42 53 Blood Pressure Mean [Left Arm] 45 53 Blood Pressure Position [Left Arm] Lying Pulse Oximetry 98 98 97 Oxygen Delivery Method Nasal Cannula Oxygen Flow Rate 2 3 2 Sepsis Recent Fever Within 48 Hours Sepsis New/Unexplained Change in Mental Status Sepsis Action Taken by Nursing 10/13/21 11:50 10/13/21 11:51 10/13/21 12:00 Temperature Temperature Source Pulse Rate 70 73 Pulse Rate [Apical] 60 58 L Pulse Rate from SpO2 Sensor Pulse Rhythm Pulse Rhythm [Apical] Regular Regular Pulse Strength Pulse Strength [Apical] Normal Normal Respiratory Rate 28 H 18 22 Respiratory Effort / Characteristics Non-Labored Non-Labored Respiratory Depth Normal Normal Respiratory Pattern Regular Regular Blood Pressure 88/42 L 87/41 L Blood Pressure [Left Arm] 88/42 L 87/41 L Blood Pressure Mean 57 56 Blood Pressure Mean [Left Arm] 57 56 Blood Pressure Position [Left Arm] Lying Lying Pulse Oximetry 98 99 96 Oxygen Delivery Method Room Air Nasal Cannula Oxygen Flow Rate 2 3 Sepsis Recent Fever Within 48 Hours Sepsis New/Unexplained Change in Mental Status Sepsis Action Taken by Nursing 10/13/21 12:10 10/13/21 12:18 10/13/21 12:23 Temperature Temperature Source Pulse Rate 71 71 Pulse Rate [Apical] 70 Pulse Rate from SpO2 Sensor Pulse Rhythm Pulse Rhythm [Apical] Regular Pulse Strength Pulse Strength [Apical] Normal Respiratory Rate 23 19 18 Respiratory Effort / Characteristics Non-Labored Respiratory Depth Normal Respiratory Pattern Regular Blood Pressure 84/39 L 89/45 L Blood Pressure [Left Arm] 97/41 L Blood Pressure Mean 54 59 Blood Pressure Mean [Left Arm] 59 Blood Pressure Position [Left Arm] Lying Pulse Oximetry 97 98 98 Oxygen Delivery Method Nasal Cannula Oxygen Flow Rate 2 2 3 Sepsis Recent Fever Within 48 Hours Sepsis New/Unexplained Change in Mental Status Sepsis Action Taken by Nursing Laboratory Data Result diagrams: 10/13/21 09:44 10/13/21 10:49 Lab Results 10/13/21 10/13/21 10/13/21 Range/Units 09:44 09:44 09:44 WBC 19.08 H (4.8-10.8) K/uL RBC 3.88 L (4.7-6.1) M/uL Hgb 11.9 L (14.0-18.0) g/dL Hct 35.0 L (42-52) % MCV 90.2 (80-100) fL MCH 30.7 (25-34) pg MCHC 34.0 (32-36) g/dL RDW Std Deviation 60.0 H (36.4-46.3) fL RDW Coeff of Kylee 18.2 H (11.5-14.5) % Plt Count 178 (130-400) K/uL MPV 10.1 (7.4-10.4) fL Immature Gran % (Auto) 0.2 % Neut % (Auto) 90.3 % Lymph % (Auto) 2.3 % [place] % (Auto) 6.8 % Eos % (Auto) 0.3 % Baso % (Auto) 0.1 % Neut # (Auto) 17.22 H (1.4-6.5) K/uL Lymph # (Auto) 0.44 L (1.2-3.4) K/uL [place] # (Auto) 1.30 H (0.11-0.59) K/uL Eos # (Auto) 0.06 (0-0.5) K/uL Baso # (Auto) 0.02 (0-0.2) K/uL Immature Gran # (Auto) 0.04 H (0.00-0.02) K/uL PT 10.9 (9.0-12.0) Seconds INR 1.0 (0.9-1.1) VBG pH (7.36-7.41) VBG pCO2 (38-50) mmHg VBG pO2 mmHg VBG HCO3 mmol/L VBG O2 Saturation % VBG Base Excess mEq/L Barometric Pressure mm/Hg Sodium (136-145) mmol/L Potassium (3.5-5.1) mmol/L Chloride (98-107) mmol/L Carbon Dioxide (21-32) mmol/L Anion Gap (3-11) BUN (6-23) mg/dl Creatinine (0.6-1.4) mg/dl Est Cr Clr Drug Dosing ml/min Est GFR ( Amer) ml/min Est GFR (Non-Af Amer) ml/min BUN/Creatinine Ratio (10-20) Glucose (70-99(Fasting)) mg/dl Lactate (0.4-2.0) mmol/L Calcium (8.5-10.1) mg/dl Total Bilirubin (0.2-1.0) mg/dl AST (13-39) U/L ALT (7-52) U/L Alkaline Phosphatase (34-104) U/L Troponin I High Sens (0-20) pg/ml B-Natriuretic Peptide (0-100) pg/ml Total Protein (6.0-8.3) gm/dl Albumin (3.4-5.0) gm/dl Globulin (2.5-4.0) gm/dl Albumin/Globulin Ratio (0.9-2) Lipase (11-82) U/L Procalcitonin 1.06 H (0-0.5) ng/ml SARS-CoV-2 (PCR) (Negative) Influenza Type A (PCR) (Neg) Influenza Type B (PCR) (Neg) RSV (RT-PCR) (Neg) 10/13/21 10/13/21 10/13/21 Range/Units 10:09 10:09 10:49 WBC (4.8-10.8) K/uL RBC (4.7-6.1) M/uL Hgb (14.0-18.0) g/dL Hct (42-52) % MCV (80-100) fL MCH (25-34) pg MCHC (32-36) g/dL RDW Std Deviation (36.4-46.3) fL RDW Coeff of Kylee (11.5-14.5) % Plt Count (130-400) K/uL MPV (7.4-10.4) fL Immature Gran % (Auto) % Neut % (Auto) % Lymph % (Auto) % [place] % (Auto) % Eos % (Auto) % Baso % (Auto) % Neut # (Auto) (1.4-6.5) K/uL Lymph # (Auto) (1.2-3.4) K/uL [place] # (Auto) (0.11-0.59) K/uL Eos # (Auto) (0-0.5) K/uL Baso # (Auto) (0-0.2) K/uL Immature Gran # (Auto) (0.00-0.02) K/uL PT (9.0-12.0) Seconds INR (0.9-1.1) VBG pH (7.36-7.41) VBG pCO2 (38-50) mmHg VBG pO2 mmHg VBG HCO3 mmol/L VBG O2 Saturation % VBG Base Excess mEq/L Barometric Pressure mm/Hg Sodium (136-145) mmol/L Potassium (3.5-5.1) mmol/L Chloride (98-107) mmol/L Carbon Dioxide (21-32) mmol/L Anion Gap (3-11) BUN (6-23) mg/dl Creatinine (0.6-1.4) mg/dl Est Cr Clr Drug Dosing ml/min Est GFR ( Amer) ml/min Est GFR (Non-Af Amer) ml/min BUN/Creatinine Ratio (10-20) Glucose (70-99(Fasting)) mg/dl Lactate 3.1 H* (0.4-2.0) mmol/L Calcium (8.5-10.1) mg/dl Total Bilirubin (0.2-1.0) mg/dl AST (13-39) U/L ALT (7-52) U/L Alkaline Phosphatase (34-104) U/L Troponin I High Sens 33.4 H (0-20) pg/ml B-Natriuretic Peptide (0-100) pg/ml Total Protein (6.0-8.3) gm/dl Albumin (3.4-5.0) gm/dl Globulin (2.5-4.0) gm/dl Albumin/Globulin Ratio (0.9-2) Lipase (11-82) U/L Procalcitonin (0-0.5) ng/ml SARS-CoV-2 (PCR) NEGATIVE (Negative) Influenza Type A (PCR) Negative (Neg) Influenza Type B (PCR) Negative (Neg) RSV (RT-PCR) Negative (Neg) 10/13/21 10/13/21 10/13/21 Range/Units 10:49 10:49 10:54 WBC (4.8-10.8) K/uL RBC (4.7-6.1) M/uL Hgb (14.0-18.0) g/dL Hct (42-52) % MCV (80-100) fL MCH (25-34) pg MCHC (32-36) g/dL RDW Std Deviation (36.4-46.3) fL RDW Coeff of Kylee (11.5-14.5) % Plt Count (130-400) K/uL MPV (7.4-10.4) fL Immature Gran % (Auto) % Neut % (Auto) % Lymph % (Auto) % [place] % (Auto) % Eos % (Auto) % Baso % (Auto) % Neut # (Auto) (1.4-6.5) K/uL Lymph # (Auto) (1.2-3.4) K/uL [place] # (Auto) (0.11-0.59) K/uL Eos # (Auto) (0-0.5) K/uL Baso # (Auto) (0-0.2) K/uL Immature Gran # (Auto) (0.00-0.02) K/uL PT (9.0-12.0) Seconds INR (0.9-1.1) VBG pH 7.43 H (7.36-7.41) VBG pCO2 39 (38-50) mmHg VBG pO2 44 mmHg VBG HCO3 25 mmol/L VBG O2 Saturation 78.2 % VBG Base Excess 1.2 mEq/L Barometric Pressure 733.5 mm/Hg Sodium 135 L (136-145) mmol/L Potassium 4.5 (3.5-5.1) mmol/L Chloride 99 (98-107) mmol/L Carbon Dioxide 25 (21-32) mmol/L Anion Gap 11 (3-11) BUN 38 H (6-23) mg/dl Creatinine 1.76 H (0.6-1.4) mg/dl Est Cr Clr Drug Dosing 72.5 ml/min Est GFR ( Amer) 49.4 ml/min Est GFR (Non-Af Amer) 42.6 ml/min BUN/Creatinine Ratio 21.6 H (10-20) Glucose 216 H (70-99(Fasting)) mg/dl Lactate (0.4-2.0) mmol/L Calcium 9.3 (8.5-10.1) mg/dl Total Bilirubin 2.3 H (0.2-1.0) mg/dl AST 22 (13-39) U/L ALT 16 (7-52) U/L Alkaline Phosphatase 65 (34-104) U/L Troponin I High Sens (0-20) pg/ml B-Natriuretic Peptide 57 (0-100) pg/ml Total Protein 6.9 (6.0-8.3) gm/dl Albumin 4.0 (3.4-5.0) gm/dl Globulin 2.9 (2.5-4.0) gm/dl Albumin/Globulin Ratio 1.4 (0.9-2) Lipase 19 (11-82) U/L Procalcitonin (0-0.5) ng/ml SARS-CoV-2 (PCR) (Negative) Influenza Type A (PCR) (Neg) Influenza Type B (PCR) (Neg) RSV (RT-PCR) (Neg) Administered Medications Norepinephrine Bitartrate (Levophed/D5w) 8 mg in 508 mls @ 68.858 mls/hr IV .[id number] [facility]; Protocol Stop: 11/12/21 11:44 Last Titration: 10/13/21 14:42 Dose: 0.1 mcg/kg/min, 62.6 mls/hr Documented by: [id number] Titration: 10/13/21 12:51 Dose: 0.11 mcg/kg/min, 68.9 mls/hr Documented by: [id number] Titration: 10/13/21 12:33 Dose: 0.09 mcg/kg/min, 56.2 mls/hr Documented by: [id number] Admin: 10/13/21 12:18 Dose: 0.07 mcg/kg/min, 43.8 mls/hr Documented by: [id number] Cosigned by: [id number] Titration: 10/13/21 12:18 Dose: 0.05 mcg/kg/min, 31.3 mls/hr Documented by: [id number] Cosigned by: [id number] Admin: 10/13/21 11:46 Dose: 0.05 mcg/kg/min, 31.3 mls/hr Documented by: [id number] Cosigned by: [id number] Discontinued Medications Acetaminophen (Acetaminophen 500 Mg Tab) 1,000 mg PO ONE STA Stop: 10/13/21 09:50 Last Admin: 10/13/21 10:12 Dose: 1,000 mg Documented by: [id number] Doxycycline Hyclate (Doxycycline Hyclate 100 Mg Cap) 100 mg PO NOW STA Stop: 10/13/21 11:12 Last Admin: 10/13/21 11:27 Dose: 100 mg Documented by: [id number] Ceftriaxone Sodium (Rocephin) 2,000 mg in 70 mls @ 140 mls/hr IV NOW STA Stop: 10/13/21 10:20 Last Infusion: 10/13/21 10:48 Dose: 0 mls/hr Documented by: [id number] Admin: 10/13/21 10:12 Dose: 140 mls/hr Documented by: [id number] Sodium Chloride (Nss 1000ml) 500 mls @ 999 mls/hr IV .Q31M ONE Stop: 10/13/21 12:10 Last Admin: 10/13/21 11:46 Dose: 999 mls/hr Documented by: [id number] Daptomycin 650 mg/ Syringe 13 mls @ 6.5 mls/min IV NOW STA; Protocol Stop: 10/13/21 11:47 Last Admin: 10/13/21 12:17 Dose: 6.5 mls/min Documented by: [id number] Metolazone (Metolazone 2.5 Mg Tablet) 2.5 mg PO NOW ONE Stop: 10/13/21 09:54 Last Admin: 10/13/21 11:27 Dose: 2.5 mg Documented by: [id number] Miscellaneous (Stat Iv Infusion Titration Per Protocol) 1 ea N/A NOW STA Stop: 10/13/21 11:41 Last Admin: 10/13/21 12:16 Dose: 1 ea Documented by: [id number] Imaging Data Radiologist's Impression: Chest X-Ray 10/13/21 09:49 SINGLE VIEW CHEST CLINICAL HISTORY: Fever. Dyspnea. FINDINGS: 2 AP, portable, upright chest radiographs are compared to study dated 05/18/2018 and correlated with chest CT dated 05/25/2018. A 2-lead cardiac AICD is unchanged in position. The heart is enlarged. There is pulmonary vascular congestion. Atelectasis is noted the lung bases. The lungs and pleural spaces are clear. No pneumothorax is seen. The bony thorax is grossly intact. IMPRESSION: Cardiomegaly and AICD with evidence of congestive failure. ACT 112: Negative or not required by law. Electronically signed by: Blanco Bazan M.D. 10/13/2021 10:[address] 10/13/21 12:22 CT tib/fib RT wo con CLINICAL HISTORY: Right leg swelling, erythema and increased warmth. Evaluate fo r cellulitis. COMPARISON STUDY: No previous studies for comparison. CT DOSE: 404.87 mGy.cm TECHNIQUE: Standard CT of the right lower leg is performed without IV contrast. Multiplanar reconstruction is performed. A dose lowering technique was utilized adhering to the principles of ALARA. FINDINGS: Lack of intravenous contrast significantly limits the study. Bones: The bones appear osteopenic. There is no evidence for cortical destruction or CT evidence for osteomyelitis. There is no evidence for an acute fracture or dislocation. There are no lytic or blastic lesions. Joints: There is joint space narrowing and degenerative changes present in the joint characteristic of moderate to marked osteoarthritis. Mild diffuse joint space narrowing is also seen at the ankle joint. The bones are in anatomic alignment. Soft tissues: There is diffuse subcutaneous edema present involving the lower leg beginning at the level of the knee joint and extending inferiorly to the ankle joint. Diffuse skin thickening is also present. There are no focal fluid collections. There is atrophy of the gastrocnemius muscle posteriorly. Lack of intravenous contrast limits evaluation of the remaining muscular structures. IMPRESSION: 1. No acute osseous pathology. No evidence for osteomyelitis. 2. Diffuse subcutaneous edema and skin thickening characteristic of cellulitis with no focal fluid collection identified on these limited noncontrast images. 3. Atrophy of the gastrocnemius muscle. ACT 112: Negative or not required by law. Electronically signed by: Abdon Atr M.D. 10/13/2021 3:03 PM Discharge Plan Visit Data Chief Complaint: Shortness of Breath/Dyspnea Stated Complaint: SOB ED Provider: Surya Brand Discharge Problem: Severe sepsis with septic shock, Systolic congestive heart failure, Lactic acidosis, Soft tissue infection, VERONA (acute kidney injury) Patient Disposition: Admitted As Inpatient Discharge Instructions Interventions: ED Discharge Assessment Last Done: 10/13/21 13:55
[2021-10-13 10:23] LABS: Basophils # (auto) 0.02 K/uL (0-0.2); Basophils % (auto) 0.1 %; Eosinophils # (auto) 0.06 K/uL (0-0.5); Eosinophils % (auto) 0.3 %; Hemoglobin 11.9 g/dL (14.0-18.0); Immature Granulocytes # (auto) 0.04 K/uL (0.00-0.02); Immature Granulocytes % (auto) 0.2 %; Lymphocytes # (auto) 0.44 K/uL (1.2-3.4); Lymphocytes % (auto) 2.3 %; Mean Corpuscular Hemoglobin 30.7 pg (25-34); Mean Corpuscular Volume 90.2 fL (80-100); Mean Platelet Volume 10.1 fL (7.4-10.4); Monocytes % (auto) 6.8 %; Neutrophils # (auto) 17.22 K/uL (1.4-6.5); Neutrophils % (auto) 90.3 %; Platelet Count 178 K/uL (130-400); RDW Coefficient of Variation 18.2 % (11.5-14.5); Red Blood Count 3.88 M/uL (4.7-6.1); White Blood Count 19.08 K/uL (4.8-10.8)
[2021-10-13 10:32] LABS: Prothrombin Time 10.9 Seconds (9.0-12.0)
--- NOTE | 2021-10-13 10:32 | XRay Report ---
SINGLE VIEW CHEST CLINICAL HISTORY: Fever. Dyspnea. FINDINGS: 2 AP, portable, upright chest radiographs are compared to study dated 05/18/2018 and correl ated with chest CT dated 05/25/2018. A 2-lead cardiac AICD is unchanged in position. The heart is enla rged. There is pulmonary vascular congestion. Atelectasis is noted the lung bases. The lungs and pleu ral spaces are clear. No pneumothorax is seen. The bony thorax is grossly intact. IMPRESSION: Cardiomegaly and AICD with evidence of congestive failure. ACT 112: Negative or not required by law. Electronically signed by: Blanco Bazan M.D. 10/13/2021 10:31 AM
[2021-10-13 11:07] LABS: Base Excess VBG 1.2 mEq/L; Oxygen Saturation VBG 78.2 %; pH VBG 7.43 (7.36-7.41)
[2021-10-13] MEDS ORDERED: DOXYCYCLINE HYCLATE 100 MG CAP PO STA (11:11)
[2021-10-13 11:39] LABS: Influenza A virus by PCR Negative (Neg); Influenza B virus by PCR Negative (Neg); RSV by PCR Negative (Neg); SARS CoV2 RNA(COVID-19) InHosp NEGATIVE (Negative)
[2021-10-13] MEDS ORDERED: SODIUM CHLORIDE 0.9% 1000ML 500 ML IV ONE (11:40)
[2021-10-13] MEDS ORDERED: STAT IV Infusion **Titration per Protocol STA (11:40)
[2021-10-13 11:45] LABS: Albumin Globulin Ratio 1.4 (0.9-2); BUN Creatinine Ratio 21.6 (10-20); Bilirubin,Total 2.3 mg/dl (0.2-1.0); Calcium 9.3 mg/dl (8.5-10.1); Creatinine Clr Calc Pharmacy 72.5 ml/min; Est GFR (African American) 49.4 ml/min; Est GFR (Non-African American) 42.6 ml/min; Globulin 2.9 gm/dl (2.5-4.0); Potassium 4.5 mmol/L (3.5-5.1); Total Protein 6.9 gm/dl (6.0-8.3)
[2021-10-13] MEDS ORDERED: DAPTOmycin 650 MG in SYRINGE 0 ML IV STA (11:46)
[2021-10-13] MEDS: NOREPINEPHRINE/D5W 8 MG/508 ML BAG IV SCH ×2 (11:46→12:18)
--- NOTE | 2021-10-13 11:59 | History & Physical Report ---
Date of Service October 13, 2021 Assessment & Plan (1) Sepsis: Plan: Lenard is a 56-year-old male with a past medical history of CHF, AICD, cardiomyopathy, hypertension, restrictive lung disease who presented to the ER with fever, chills, and shortness of breath. Also had right leg pain and swelling overnight. He is COVID vaccinated. On initial ER evaluation patient was hypotensive 96/49, with a temperature of 38.3, tachypneic to 26. EKG 79 bpm atrially paced without acute territorial ST segment elevations, QT was prolonged at 513 with a nonspecific intraventricular conduction delay. Pt required norepi for pressure support and has been recommended for admission for sepsis. sepsis 2/ ?RLE cellulitis Leukocytosis to 19.08, Febrile to 38.3 on admission, Hypotensive to 96/49 on admission - +dry cough overnight. No abdominal comiplaints, n/v/d. CT-C pending. Right lower extremity venous Dopplers pending - EKG: atrial paced. IVCD, QTp. Prior EKG sinus w/ PVC, no QTp Norepinephrine drip started in ER Given empiric Doxy, Rocephin, Dapto in ER. Admitting VB.43, 39, 44, 25 Lactate 3.1 on admission, procalcitonin 1.06 Lactate trended COVID and flu negative by PCR Creatinine 1.76 AST/ALT wnl High-sensitivity troponin 33., repeat pending 2hr, then q6h x3 - CXR: Cardiomegaly with AICD. Pulmonary vascular congestion, evidence of congestive failure. -BNP: 57, wnl TSH normal 09/20/2021 - CT RLE noncon pending blood cultures pending - Repeat echo pending Left lower extremity with annular rash, not overtly cellulitic.? Tinea, clotrimazole ordered Empiric cefepime, Dapto continued for cellulitis. (2) Cellulitis: Plan: As above (3) Congestive heart failure with left ventricular diastolic dysfunction: Plan: Nonischemic cardiomyopathy - Echo 09/09/2020: EF 28%, akinesis of distal anterior and distal anteroseptal wall segments and otherwise global hypokinesis. Cardiac cath 09/2020 due to positive stress test. Normal coronary arteries without significant stenosis, mild elevated left ventricular end-diastolic pressure, right dominant system, no signs of aortic stenosis Last office visit 09/20/2021. Compensated nonischemic cardiomyopathy with mild peripheral edema, no evidence of pulmonary edema. Was recommended to continue carvedilol, spironolactone, diuretic, losartan at that time. ICD in place, 1 episode of rapid V. tach 11/2020. Events since that time, patient reports device has not fired recently. Continues low-dose amiodarone Carvedilol 25 mg p.o. twice daily held for hypotension - LAURA pending - trops as above (4) Sleep apnea: Plan: Restrictive lung disease, history of severe sleep apnea on CPAP Last seen by pulmonology 03/2021 Sleep disordered breathing, severe sleep apnea. Recommended to continue using CPAP, which is medically necessary for him. Recommended to continue exerci se/weight loss Restrictive breathing thought to be exclusively due to body habitus (5) Ventricular tachycardia: Plan: As above, no recurrence since initial episode per patient (6) Restrictive lung disease: Plan: CPAP, as above (7) AICD (automatic cardioverter/defibrillator) present: Plan: As above (8) Cardiomyopathy: Plan: As above Plan: DVT prophylaxis: Heparin in setting of VER[place] CODE STATUS: Full code, surrogate decision maker would be sound Diet: Heart healthy, n.p.o. pending initial clinical treatment and early exam of respiratory status History of Present Illness Primary Care Provider: Saul Melgar DO Lenard is a 56-year-old male with a past medical history of CHF, AICD, cardiomyopathy, hypertension, restrictive lung disease who presented to the ER with fever, chills, and shortness of breath. Also had right leg pain and swelling overnight. He is COVID vaccinated. On initial ER evaluation patient was hypotensive 96/49, with a temperature of 38.3, tachypneic to 26. EKG 79 bpm atrially paced without acute territorial ST segment elevations, QT was prolonged at 513 with a nonspecific intraventricular conduction delay. Lenard reports he has been feeling poorly for 1 to 2 days. He reports he has had increased right lower leg swelling which rapidly worsened overnight. He did experience fever, chills, sweats last night. Had 1 episode of loose bowels this morning, prior to this no nausea/vomiting/diarrhea/constipation. Denies any chest pressure, chest pain, ICD shocks, lightheadedness, or dizziness. No chest pain in prior few weeks months, was seen09/20/21 for routine cardiology followup and felt normal at that time. Right leg has been warm, tender, swollen since yesterday. Left leg has had a rash which started about 2 weeks ago. Has not changed, not itchy, not tender, not warm. Pt has been compliant with CPAP at home. Denies shortness of breath prior to yesterday. Intermittent dry cough today, no preceding cough in the previous few days. +weight gain with fluid in preceding 2 days. No calf pain, no groin pain. No known medication allergies. Medical History: Reviewed Medications: Reviewed Surgical History: Reviewed Allergies: Reviewed Social History: +Medical marijuana. ETOH 3x per week, 3x per sitting. No ETOH in last 5 days. Remote tobacco use in college. Code Status: Son Roberto Carlos Machado would be surrogate DM. [phone]. Full Code. Allergies Allergy/AdvReac Type Severity Reaction Status Date / Time No Known Allergies Allergy Verified 10/13/21 11:07 Home Medications Medication Instructions Recorded Confirmed Type losartan 100 mg tablet 100 mg PO DAILY #30 tab 02/19/19 10/13/21 Rx acetaminophen 500 mg tablet 500 mg PO Q4H PRN tab 03/28/19 10/13/21 History clotrimazole-betamethasone 1 1 appln TOPICAL DIRECTED PRN gm 03/28/19 10/13/21 History %-0.05 % topical cream omega-3 fatty acids 1,250 mg 1,250 mg PO DAILY 03/28/19 10/13/21 History capsule potassium chloride 20 mEq 40 meq PO TID tab 06/03/19 10/13/21 History tablet,extended release(part/cryst) (Klor-Con M) multivitamin 1 tab PO DAILY 12/01/19 10/13/21 History Auto Titrating CPAP #1 ea 03/16/20 09/20/21 Rx CPAP Supplies #1 ea 03/16/20 09/20/21 Rx allopurinol 100 mg tablet 300 mg PO DAILY tab 08/24/20 10/13/21 History amiodarone 400 mg tablet 200 mg PO DAILY #45 tab 10/05/20 10/13/21 Rx bumetanide 2 mg tablet 2 mg PO BID #60 tab 10/05/20 10/13/21 Rx carvedilol 25 mg tablet 25 mg PO BID #180 tab 11/06/20 10/13/21 Rx metolazone 5 mg tablet 5 mg PO DAILY PRN #30 tab 04/01/21 10/13/21 Rx cholecalciferol (vitamin D3) 50 50 mcg PO DAILY 04/05/21 10/13/21 History mcg (2,000 unit) capsule spironolactone 25 mg tablet 12.5 mg PO DAILY #45 tab 09/20/21 10/13/21 Rx atorvastatin 80 mg tablet 80 mg PO HS 10/13/21 10/13/21 History Past Med/Surg History Medical History Cardiomyopathy, nonischemic 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 Dyslipidemia Elevated bilirubin Former smoker Hemoptysis Metabolic syndrome Non-rheumatic mitral regurgitation Obesity, morbid, BMI 40.0-49.9 Obstructive sleep apnea of adult Shortness of breath Systolic congestive heart failure Ventricular tachycardia (paroxysmal) Social History (Updated 10/13/21 @ 12:47 by Twin Khalil MD) Smoking Status: Former smoker Tobacco Type: Cigarettes Second Hand Exposure: No; Hx Alcohol Use: No Hx Substance Use: Yes (Medical Marijuana use for knee pain) Last Used Subs tance: Unknown Communication Ability: Effective School Psychologist Assistant Required: No Beliefs That Will Affect Care: None Current Living Situation: Family Feels Safe at Home: Yes Assistive Devices: None Review of Systems Review of Systems: 10 point Ros negative except as noted in HPI Physical Exam Physical Exam: General: A&Ox3. Obese. Cooperative. HEENT: Atraumatic, normocephalic. JVD unable to be assessed due to neck habitus. Pupils equal and reactive to light and accommodation. Extraocular movements intact without nystagmus. Vision and hearing grossly intact. Pulm: Distant, crackles in bases, no overt rales/wheezes. Metrical chest rise. Cardiac: RRR, soft systolic murmur Radial pulses intact and symmetrical. Abdominal: Obese, nontender, nondistended, soft. BS present. Extremities: Right lower extremity with anterior lewis red, warm, tender asymmetrically compared to the left. Mild swelling with edema. Left ankle with annular rash with satellites, no warmth/tenderness. Dry Press Operator strength, elbow flexion/extension, ankle flexion/extension 5/5 bilaterally without asymmetry Results & Data Results & Data ([facility]) Vital Signs (Past 12 Hours) Vital Signs Temp Pulse Resp BP Pulse Ox 10/13/21 10:59 38.3 C H 10/13/21 09:43 39.6 C H 83 26 H 96/49 L 94 PG Care Time/CCT Total # of Minutes Spent Total Time Spent with Patient: Total time spent is greater than 50% in coordination of care (as documented) at patient's floor/unit and/or counseling patient: Coding Level of Care Code 34649 Initial Inpt Care Lvl 3 Diagnoses Sepsis A41.9 Cellulitis L03.90 Congestive heart failure with left ventricular diastolic dysfunction I50.30 Sleep apnea G47.30 Ventricular tachycardia I47.2 Restrictive lung disease J98.4 AICD (automatic cardioverter/defibrillator) present Z95.810 Cardiomyopathy I42.9
--- NOTE | 2021-10-13 13:56 | Critical Care Consultation ---
Date of Consultation October 13, 2021 Assessment & Plan (1) Severe sepsis with septic shock: (2) Systolic congestive heart failure: (3) Acute renal failure: (4) Lactic acidosis: (5) Morbid obesity: (6) Soft tissue infection: Impression: 56-year-old male with morbid obesity and systolic heart failure admitted now with severe sepsis with septic shock possibly secondary to a skin and soft tissue infection. He has acute kidney injury as well and elevated lactate. Recommendations: 1. Neurologic: No acute issues. Patient is awake and oriented. Continue to follow at this point time. 2. Cardiovascular: Severe sepsis with septic shock. EF on the order of 20 to 30% with AICD in place. We will place noninvasive hemodynamic monitors to guide fluid resuscitation. Check random cortisol. Wean norepinephrine as tolerated. We will place arterial blood gas for more accurate measurement of blood pressure as well as central line for administration of pressors. Patient was consented in the emergency room. Continue amiodarone. Hold other oral antihypertensives currently. 3. Pulmonary: History of complex sleep disordered breathing, BiPAP at night. 4. ID: Presumptive soft tissue infection. We will check CPK levels as well as CT of the lower extremity to evaluate for any gas formation. If the patient fails to respond appropriately or if his CT is abnormal would have a low threshold for involving surgery in his case. Continue vancomycin, daptomycin, and Rocephin for now pending culture data. 5. Renal: Acute renal insufficiency likely secondary to ATN due to sepsis. Continue to follow at this point time. May require Cuevas catheter placement for close monitoring of input and output. Mild hyponatremia. Continue to trend. 6. Endocrine: Glycemic control per protocol. 7. Heme-onc: Mild anemia. Continue to trend. Leukocytosis secondary to infection. Continue to trend. No other issues. 8. GI: Ice chips while the patient is on pressors. May advance to liquids depending on hemodynamics and clinical response. The patient is critically ill at this point time with significant possibility of clinical deterioration and or . He will be followed closely in the ICU pending improvement in his clinical status. The above recommendations and plan were extensively discussed with the patient as well as with the ICU nurse. Questions were answered to the best of my ability. The patient expressed understanding and is in agreement with plan as outlined. 50 minutes critical care time spent evaluating managing patient exclusive from procedures. History of Present Illness History of Present Illness Asked by hospitalist to evaluate this patient with severe sepsis and septic shock. History is obtained from discussion with the patient as well as review the electronic medical record and discussion with the admitting hospitalist. Patient is a 56-year-old morbidly obese male with a history of systolic heart failure and morbid obesity. He has had redness of the lower extremities going on for quite some time. There is no prior history of psoriasis but he has multiple patchy areas of scaling erythematous lesions with some central clearing. He does not recall any tick bites were has not had any pertinent travel. Over the last 24 hours he has developed fevers associated with weakness. He has had progressive pain in the right lower extremity with increased swelling. He presented to the emergency room where he is found to be hypotensive. He received 1 L of crystalloid but chest x-ray was concerning for potential vascular congestion so norepinephrine was initiated through a 20-gauge peripheral IV. The patient currently is in reverse Trendelenburg. He is awake alert and conversant. He is not complaining of any chest pain palpitations or lower extremity edema. He does have a history of sleep disordered breathing and uses CPAP at home. I do have the opportunity of caring for the patient in the sleep clinic. His PFTs have demonstrated restriction consistent with body habitus. The patient received daptomycin, doxycycline, Rocephin, and vancomycin in the emergency room. Imaging of the lower extremities pending. Allergies Allergy/AdvReac Type Severity Reaction Status Date / Time No Known Allergies Allergy Verified 10/13/21 11:07 Home Medications Medication Instructions Recorded Confirmed Type losartan 100 mg tablet 100 mg PO DAILY #30 tab 02/19/19 10/13/21 Rx acetaminophen 500 mg tablet 500 mg PO Q4H PRN tab 03/28/19 10/13/21 History clotrimazole-betamethasone 1 1 appln TOPICAL DIRECTED PRN gm 03/28/19 10/13/21 History %-0.05 % topical cream omega-3 fatty acids 1,250 mg 1,250 mg PO DAILY 03/28/19 10/13/21 History capsule potassium chloride 20 mEq 40 meq PO TID tab 06/03/19 10/13/21 History tablet,extended release(part/cryst) (Klor-Con M) multivitamin 1 tab PO DAILY 12/01/19 10/13/21 History Auto Titrating CPAP #1 ea 03/16/20 09/20/21 Rx CPAP Supplies #1 ea 03/16/20 09/20/21 Rx allopurinol 100 mg tablet 300 mg PO DAILY tab 08/24/20 10/13/21 History amiodarone 400 mg tablet 200 mg PO DAILY #45 tab 10/05/20 10/13/21 Rx bumetanide 2 mg tablet 2 mg PO BID #60 tab 10/05/20 10/13/21 Rx carvedilol 25 mg tablet 25 mg PO BID #180 tab 11/06/20 10/13/21 Rx metolazone 5 mg tablet 5 mg PO DAILY PRN #30 tab 04/01/21 10/13/21 Rx cholecalciferol (vitamin D3) 50 50 mcg PO DAILY 04/05/21 10/13/21 History mcg (2,000 unit) capsule spironolactone 25 mg tablet 12.5 mg PO DAILY #45 tab 09/20/21 10/13/21 Rx atorvastatin 80 mg tablet 80 mg PO HS 10/13/21 10/13/21 History Patient History Medical History Cardiomyopathy, nonischemic 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 Dyslipidemia Elevated bilirubin Former smoker Hemoptysis Metabolic syndrome Non-rheumatic mitral regurgitation Obesity, morbid, BMI 40.0-49.9 Obstructive sleep apnea of adult Shortness of breath Systolic congestive heart failure Ventricular tachycardia (paroxysmal) Social History (Updated 10/13/21 @ 12:47 by Twin Khalil MD) Smoking Status: Former smoker Tobacco Type: Cigarettes Second Hand Exposure: No; Hx Alcohol Use: No Hx Substance Use: Yes (Medical Marijuana use for knee pain) Communication Ability: Effective Truck Headlight Assembler Required: No Beliefs That Will Affect Care: None Current Living Situation: Family Feels Safe at Home: Yes Assistive Devices: None Review of Systems Review of Systems: Other Per H&P. No additions or deletions Physical Exam Constitutional: WD/WN, vitals as above + morbidly obese; no acute distress, not in distress, not diaphoretic and not lethargic Neck: trachea midline, no thyromegaly Respiratory: normal respiratory effort, lungs clear to auscultation Cardiovascular: RRR, no murmur, no edema Gastrointestinal (Abdomen): normal bowel sounds, soft, nontender, no hepatosplenomegaly Musculoskeletal: Extremities: extremities normal to inspection Skin: Erythema over the anterior left lower extremity extending down posteriorly to the calf. The area over the lewis has a more glossy appearance with some questionable bullae formation early. No obvious crepitus. Is warm to the touch. There are multiple other areas of erythema with central clearing and peripheral scaling. Areas were marked with a pen to evaluate for progression Neurologic: Nonfocal exam Lymphatic: no cervical lymphadenopathy Results & Data Results & Data ([facility]) Vital Signs (Past 12 Hours) Vital Signs Temp Pulse Pulse Resp BP BP Pulse Ox 10/13/21 13:04 72 20 102/50 L 98 10/13/21 12:54 72 18 93/43 L 98 10/13/21 12:23 70 18 97/41 L 98 10/13/21 12:18 71 19 89/45 L 98 10/13/21 12:10 71 23 84/39 L 97 10/13/21 12:00 73 58 L 22 87/41 L 87/41 L 96 10/13/21 11:51 60 18 88/42 L 99 10/13/21 11:50 70 28 H 88/42 L 98 10/13/21 11:41 75 22 77/42 L 77/42 L 97 10/13/21 11:35 38.4 C H 63 18 71/33 L 98 10/13/21 11:34 27 H 72/28 L 98 10/13/21 11:06 70 30 H 95/47 L 98 10/13/21 10:59 38.3 C H 10/13/21 10:30 76 25 H 92/47 L 98 10/13/21 10:27 77 21 98 10/13/21 09:43 39.6 C H 83 26 H 96/49 L 94 10/13/21 09:41 83 21 96/49 L 91 Critical Care Results & Data Vital Signs (Past 12 Hours) Vital Signs Temp Pulse Pulse Resp BP BP Pulse Ox 10/13/21 13:04 72 20 102/50 L 98 10/13/21 12:54 72 18 93/43 L 98 10/13/21 12:23 70 18 97/41 L 98 10/13/21 12:18 71 19 89/45 L 98 10/13/21 12:10 71 23 84/39 L 97 10/13/21 12:00 73 58 L 22 87/41 L 87/41 L 96 10/13/21 11:51 60 18 88/42 L 99 10/13/21 11:50 70 28 H 88/42 L 98 10/13/21 11:41 75 22 77/42 L 77/42 L 97 10/13/21 11:35 38.4 C H 63 18 71/33 L 98 10/13/21 11:34 27 H 72/28 L 98 10/13/21 11:06 70 30 H 95/47 L 98 10/13/21 10:59 38.3 C H 10/13/21 10:30 76 25 H 92/47 L 98 10/13/21 10:27 77 21 98 10/13/21 09:43 39.6 C H 83 26 H 96/49 L 94 10/13/21 09:41 83 21 96/49 L 91 Lab & Micro Results (Past 24 Hours) RBC 3.88 M/uL (4.7-6.1) L 10/13/21 WBC 19.08 K/uL (4.8-10.8) H 10/13/21 Hgb 11.9 g/dL (14.0-18.0) L 10/13/21 Hct 35.0 % (42-52) L 10/13/21 MCV 90.2 fL (80-100) 10/13/21 MCH 30.7 pg (25-34) 10/13/21 MCHC 34.0 g/dL (32-36) 10/13/21 RDW Standard Deviation 60.0 fL (36.4-46.3) H 10/13/21 RDW Coefficient of Variation 18.2 % (11.5-14.5) H 10/13/21 Plt Count 178 K/uL (130-400) 10/13/21 MPV 10.1 fL (7.4-10.4) 10/13/21 Neutrophils (%) (Auto) 90.3 % 10/13/21 Lymphocytes (%) (Auto) 2.3 % 10/13/21 Monocytes # (Auto) 1.30 K/uL (0.11-0.59) H 10/13/21 Eosinophils # (Auto) 0.06 K/uL (0-0.5) 10/13/21 Immature Granulocyte % (Auto) 0.2 % 10/13/21 Neutrophils # (Auto) 17.22 K/uL (1.4-6.5) H 10/13/21 Lymphocytes # (Auto) 0.44 K/uL (1.2-3.4) L 10/13/21 Monocytes # (Auto) 1.30 K/uL (0.11-0.59) H 10/13/21 Eosinophils # (Auto) 0.06 K/uL (0-0.5) 10/13/21 Basophils # (Auto) 0.02 K/uL (0-0.2) 10/13/21 Immature Granulocyte # (Auto) 0.04 K/uL (0.00-0.02) H 10/13/21 Na 135 mmol/L (136-145) L 10/13/21 K 4.5 mmol/L (3.5-5.1) 10/13/21 Cl 99 mmol/L (98-107) 10/13/21 CO2 25 mmol/L (21-32) 10/13/21 Anion Gap 11 (3-11) 10/13/21 BUN 38 mg/dl (6-23) H 10/13/21 Creatinine 1.76 mg/dl (0.6-1.4) H 10/13/21 Estimated GFR ( Amer) 49.4 ml/min 10/13/21 Estimated GFR (Non-Af Amer) 42.6 ml/min 10/13/21 BUN/Creatinine Ratio 21.6 (10-20) H 10/13/21 Glu 216 mg/dl (70-99(Fasting)) H 10/13/21 Ca 9.3 mg/dl (8.5-10.1) 10/13/21 Total Bilirubin 2.3 mg/dl (0.2-1.0) H 10/13/21 AST 22 U/L (13-39) 10/13/21 ALT 16 U/L (7-52) 10/13/21 Alkaline Phosphatase 65 U/L (34-104) 10/13/21 TP 6.9 gm/dl (6.0-8.3) 10/13/21 Albumin 4.0 gm/dl (3.4-5.0) 10/13/21 Globulin 2.9 gm/dl (2.5-4.0) 10/13/21 Albumin/Globulin Ratio 1.4 (0.9-2) 10/13/21 Calcium Level 9.3 mg/dl (8.5-10.1) 10/13/21 10:49 10/13/21 Prothromb Time International Ratio 1.0 (0.9-1.1) 10/13/21 09:44 10/13/21 Venous Blood pH 7.43 (7.36-7.41) H 10/13/21 10:54 10/13/21 Venous Blood Partial Pressure CO2 39 mmHg (38-50) 10/13/21 10:54 10/13/21 Venous Blood Partial Pressure O2 44 mmHg 10/13/21 10:54 10/13/21 Venous Blood HCO3 25 mmol/L 10/13/21 10:54 10/13/21 Venous Blood Base Excess 1.2 mEq/L 10/13/21 10:54 10/13/21 Venous Blood Oxygen Saturation 78.2 % 10/13/21 10:54 10/13/21 Blood Gas Barometric Pressure 733.5 mm/Hg 10/13/21 10:54 10/13/21 Blood Gas Barometric Pressure 733.5 mm/Hg 10/13/21 10:54 10/13/21 Diagnostic Findings (Past 24 Hours) Chest X-Ray 10/13/21 09:49 SINGLE VIEW CHEST CLINICAL HISTORY: Fever. Dyspnea. FINDINGS: 2 AP, portable, upright chest radiographs are compared to study dated 05/18/2018 and correlated with chest CT dated 05/25/2018. A 2-lead cardiac AICD is unchanged in position. The heart is enlarged. There is pulmonary vascular congestion. Atelectasis is noted the lung bases. The lungs and pleural spaces are clear. No pneumothorax is seen. The bony thorax is grossly intact. IMPRESSION: Cardiomegaly and AICD with evidence of congestive failure. ACT 112: Negative or not required by law. Electronically signed by: Blanco Bazan M.D. 10/13/2021 10:31 AM I & O Totals 24 Hours 10/12/21 10/13/21 10/14/21 06:59 06:59 06:59 Intake Total 114.503 / 114.503 Balance 114.503 / 114.503 Cumulative 10/13/21 09:12 thru 10/13/21 12:51 Intake Total 114.503 Balance 114.503 RT Ventilator Mngmt (Last Documented) Ventilator Ordered Settings Respiratory Rate 20 10/13/21 13:04 Ventilator - PT Measurements Respiratory Rate 20 Coding Level of Care Code Critical Care 1st 30-74 mins Diagnoses Severe sepsis with septic shock A41.9; R65.21 Systolic congestive heart failure I50.20 Acute renal failure N17.9 Lactic acidosis E87.2 Morbid obesity E66.01 Soft tissue infection L08.9
[2021-10-13] MEDS ORDERED: ICU PROTOCOL FOR HYPERGLYCEMIA PRN ×2 (14:35→15:47)
--- NOTE | 2021-10-13 15:04 | CT Scan Report ---
CT tib/fib RT wo con CLINICAL HISTORY: Right leg swelling, erythema and increased warmth. Evaluate for cellulitis. COMPARISON STUDY: No previous studies for comparison. CT DOSE: 404.87 mGy.cm TECHNIQUE: Standard CT of the right lower leg is performed without IV contrast. Multiplanar reconstru ction is performed. A dose lowering technique was utilized adhering to the principles of ALARA. FINDINGS: Lack of intravenous contrast significantly limits the study. Bones: The bones appear osteopenic. There is no evidence for cortical destruction or CT evidence for osteomyelitis. There is no evidence for an acute fracture or dislocation. There are no lytic or blast ic lesions. Joints: There is joint space narrowing and degenerative changes present in the joint characteristic o f moderate to marked osteoarthritis. Mild diffuse joint space narrowing is also seen at the ankle edson nt. The bones are in anatomic alignment. Soft tissues: There is diffuse subcutaneous edema present involving the lower leg beginning at the le shell of the knee joint and extending inferiorly to the ankle joint. Diffuse skin thickening is also pr esent. There are no focal fluid collections. There is atrophy of the gastrocnemius muscle posteriorly. Lack of intravenous contrast limits evaluat ion of the remaining muscular structures. IMPRESSION: 1. No acute osseous pathology. No evidence for osteomyelitis. 2. Diffuse subcutaneous edema and skin thickening characteristic of cellulitis with no focal fluid co llection identified on these limited noncontrast images. 3. Atrophy of the gastrocnemius muscle. ACT 112: Negative or not required by law. Electronically signed by: Abdon Art M.D. 10/13/2021 3:03 PM
--- NOTE | 2021-10-13 15:29 | XRay Report ---
XR chest 1V portable CLINICAL HISTORY: line placement TECHNIQUE: Single frontal radiograph of the chest was obtained. Comparison: Comparison is made to chest one view 10/13/2021 FINDINGS: Pacemaker defibrillator is seen. Right venous catheter terminates in the mid SVC. Cardiomegaly is not ed. The lungs are clear. No evidence of pleural effusion or pneumothorax. IMPRESSION: Cardiomegaly without evidence of acute abnormality. ACT 112: Negative or not required by law. Electronically signed by: Gregor Cardona M.D. 10/13/2021 3:28 PM
--- NOTE | 2021-10-13 15:38 | Procedure Note ---
Procedure Note Date of Service October 13, 2021 Note CENTRAL LINE PROCEDURE NOTE: Procedure: Central Line Placement Provider: Mickey Alvarez MD Indication: Central Drug Administration, Poor Venous Access, Multiple Lab Draws Necessary, etc. Anesthesia: 5 mL lidocaine 1% Site: Right internal jugular Verbal consent was obtained from the patient in the presence of the ICU bedside nurse prior to the procedure. Indication, risks, and benefits were explained at length. A time-out was completed verifying correct patient, procedure, site, positioning, and implants(s) or special equipment if applicable. Patients right neck was cleansed and draped in the typical sterile fashion using Chloraprep. The Internal Jugular Vein and Carotid Artery were identified using ultrasound. The superficial tissue was anesthetized using 5mL of 1% lidocaine without epinephrine under direct visualization with the ultrasound. After adequate anesthetization was achieved, the Internal Jugular vein was cannulated under direct ultrasound guidance using an introducer needle on a syringe. Good venous blood return was maintained prior to removal of syringe from introducer needle. Using Seldinger Technique, a guide wire was advanced through the introducer needle without resistance. The introducer needle was removed and ultrasound images were obtained of the guide wire within the Internal Jugular Vein and saved to the patients medical record. A small incision was made in penetrating fashion at the guide wire insertion site utilizing an 11 blade scalpel. The dilator was advanced to the vessel without resistance. The dilator was exchanged for the triple lumen catheter which was advanced into the vessel without resistance. The guide wire was removed intact from the catheter without issue. Claves were placed on each catheter tip with confirmation of good blood flow from each lumen. Each port was easily flushed with sterile saline. The catheter was placed at the hub and sutured in place. BioPatch was applied to the catheter and a sterile Tegaderm dressing was applied over the catheter with careful attention to sterility. Patient tolerated procedure well. No immediate complications were met. Post procedure x-ray was completed, placement was appropriate and no pneumothorax was noted. Images obtained are saved for permanent record Coding CPT Codes Tubes, Drains, and Vasc Access - Tubes, Drains, and Vasc Access: [id number] Place catheter in vein superior or inferior vena cava ([id number]) [facility] [place] Procedure Codes (Charges) Tubes, Drains, and Vasc Access Procedure 1: Tubes, Drains, and Vasc Access: [id number] Place catheter in vein superior or inferior vena cava
--- NOTE | 2021-10-13 15:40 | Procedure Note ---
Procedure Note Date of Service October 13, 2021 Note ARTERIAL LINE PROCEDURE NOTE: Procedure: Arterial Line Placement Provider: Mickey Alvarez MD Indication: Monitoring on Pressors Anesthesia: None Verbal consent was obtained prior to commencement of the procedure. Critical care ICU nurse present with his consent. Indication, risks, and benefits were explained at length. A time-out was completed verifying correct patient, procedure, site, positioning, and implant(s) or special equipment if applicable. Allens test was performed to ensure adequate perfusion. Patients rightwrist was prepped and draped in the usual sterile fashion. Ultrasound guidance was used to aid needle placement. A 20g Arrow arterial line was introduced into the right radialartery. Catheter was threaded, and the needle was removed with appropriate blood return. Good waveform was observed. The patient tolerated the procedure well. []Confirmation of placement with ultrasound. []Images saved to medical record. Blood Loss: Minimal Complications: None Coding CPT Codes Tubes, Drains, and Vasc Access - Tubes, Drains, and Vasc Access: [id number] Insertion Catheter, Artery ([id number]) [facility] [place] Codes (Charges) Tubes, Drains, and Vasc Access Procedure 1: Tubes, Drains, and Vasc Access: [id number] Insertion Catheter, Artery
[2021-10-13] MEDS: CEFEPIME 2,000 MG in SYRINGE 0 ML IV SCH ×2 (16:34→22:20)
[2021-10-13] MEDS: NORMOSOL-R 1,000 ML IV SCH (16:34)
[2021-10-13] MEDS: ICU ELECTROLYTE REPLACEMENT PROTOCOL SCH (16:37)
[2021-10-13] MEDS ORDERED: PERFLUTREN LIPID MICROSPHERE (DEFINITY) IV ONE (16:42)
--- NOTE | 2021-10-13 17:02 | XCELERA ---
[id number] \\[id number]
--- NOTE | 2021-10-13 17:03 | Electrocardiogram Report ---
Test Reason : Blood Pressure : / mmHG Vent. Rate : 079 BPM Atrial Rate : 079 BPM P-R Int : 218 ms QRS Dur : 122 ms QT Int : 448 ms P-R-T Axes : 082 073 074 degrees QTc Int : 513 ms Atrial-paced rhythm with prolonged AV conduction Non-specific intra-ventricular conduction delay Abnormal ECG When compared with ECG of 12-APR-2016 14:38, Electronic atrial pacemaker has replaced Sinus rhythm QT has lengthened Confirmed by Caleb Sher ([id number]) on 10/13/2021 5:03:27 PM Referred By: REFERRED SELF Confirmed By:Caleb Sher
[2021-10-13] MEDS: ACETAMINOPHEN 500 MG TAB PO PRN (17:41)
[2021-10-13] MEDS ORDERED: ICU MODERATE HYPERGLYCEMIA PROTOCOL ONE (20:29)
[2021-10-13] MEDS ORDERED: DEXTROSE 50% 50 ML SYRINGE IV PRN (21:00)
[2021-10-13] MEDS ORDERED: GLUCOSE 10 TABS/TUBE PO PRN (21:00)
[2021-10-13] MEDS ORDERED: GLUCAGON FOR INJ 1 MG VIAL IM PRN (21:00)
[2021-10-13] MEDS ORDERED: GLUCOSE 40% GEL 15 GM TUBE PO PRN (21:00)
[2021-10-13] MEDS ORDERED: CARBOHYDRATES FOR HYPOGLYCEMIA PO PRN (21:00)
[2021-10-13] MEDS: ACETAMINOPHEN 1000 MG/100 ML IV IV PRN (21:11)
[2021-10-13] MEDS: CLOTRIMAZOLE 1% CR 15 GM TUBE EXT SCH (21:23)
[2021-10-13] MEDS: HEPARIN SOD 5,000 UNIT/0.5 ML VIAL SQ SCH (21:24)
[2021-10-14] MEDS: INSULIN ASPART PER UNIT SC SCH ×5 (01:03→21:15)
[2021-10-14] MEDS: NOREPINEPHRINE/D5W 8 MG/508 ML BAG IV SCH ×2 (01:18→08:46)
[2021-10-14] MEDS: ACETAMINOPHEN 1000 MG/100 ML IV IV PRN (05:23)
[2021-10-14] MEDS: NORMOSOL-R 1,000 ML IV SCH (05:24)
[2021-10-14] MEDS: HEPARIN SOD 5,000 UNIT/0.5 ML VIAL SQ SCH ×3 (05:29→21:00)
[2021-10-14 05:49] LABS: Basophils # (auto) 0.01 K/uL (0-0.2); Basophils % (auto) 0.1 %; Eosinophils # (auto) 0.02 K/uL (0-0.5); Eosinophils % (auto) 0.2 %; Hematocrit (blood only) 31.5 % (42-52); Hemoglobin 10.7 g/dL (14.0-18.0); Immature Granulocytes # (auto) 0.03 K/uL (0.00-0.02); Immature Granulocytes % (auto) 0.3 %; Lymphocytes # (auto) 0.43 K/uL (1.2-3.4); Lymphocytes % (auto) 3.6 %; Mean Corpuscular Hemoglobin 30.7 pg (25-34); Mean Corpuscular Volume 90.3 fL (80-100); Mean Platelet Volume 9.4 fL (7.4-10.4); Monocytes # (auto) 1.04 K/uL (0.11-0.59); Monocytes % (auto) 8.8 %; Neutrophils # (auto) 10.35 K/uL (1.4-6.5); Platelet Count 168 K/uL (130-400); RDW Coefficient of Variation 18.4 % (11.5-14.5); RDW Standard Deviation 60.9 fL (36.4-46.3); Red Blood Count 3.49 M/uL (4.7-6.1); White Blood Count 11.88 K/uL (4.8-10.8)
[2021-10-14 06:07] LABS: BUN Creatinine Ratio 27.4 (10-20); Calcium 8.9 mg/dl (8.5-10.1); Est GFR (Non-African American) 58.7 ml/min; Magnesium 1.6 mg/dl (1.7-2.4); Phosphorus 3.2 mg/dl (2.5-4.9); Potassium 3.6 mmol/L (3.5-5.1)
[2021-10-14] MEDS: ICU ELECTROLYTE REPLACEMENT PROTOCOL SCH (06:32)
[2021-10-14] MEDS: CEFEPIME 2,000 MG in SYRINGE 0 ML IV SCH (06:39)
[2021-10-14] MEDS: MAGNESIUM SULFATE / D5W 1 GM/100 ML BAG IV SCH ×4 (07:02→12:42)
--- NOTE | 2021-10-14 07:03 | Ultrasound Report ---
ULTRASOUND RIGHT LOWER EXTREMITY VENOUS CLINICAL HISTORY: Right calf pain and erythema. COMPARISON STUDY: No priors. TECHNIQUE: Real-time, grayscale, and color Doppler sonography of the deep veins of the right lower ex tremity was performed from the inguinal crease to the calf. Compression and augmentation were utilize d. FINDINGS: There is no sonographic evidence of deep venous thrombosis identified in the right lower ex tremity. The common femoral, superficial femoral, and popliteal veins are patent and normally jimbo sible. The greater saphenous vein and the profunda femoris vein at the junction with the common femor al vein are clear. The visualized calf veins are patent. IMPRESSION: There is no sonographic evidence of deep venous thrombosis identified in the right lower extremity. ACT 112: Negative or not required by law. Electronically signed by: Blanco Bazan M.D. 10/14/2021 7:01 AM
[2021-10-14] MEDS: POTASSIUM CHLORIDE CRTAB 20 MEQ TABCR PO SCH ×2 (07:06→12:24)
--- NOTE | 2021-10-14 07:50 | Critical Care Progress Note ---
Date of Service October 14, 2021 Assessment & Plan (1) Severe sepsis with septic shock: (2) Systolic congestive heart failure: (3) Acute renal failure: (4) Lactic acidosis: (5) Morbid obesity: (6) Soft tissue infection: Plan: Impression: 56-year-old male with morbid obesity and systolic heart failure admitted now with severe sepsis with septic shock possibly secondary to a skin and soft tissue infection. He has acute kidney injury as well and elevated lactate. 24-hour events: Patient mated to ICU. Central and arterial line placed. He is had significant weaning of his vasopressors overnight. He is awake alert and c onversant. Recommendations: 1. Neurologic: No acute issues. Patient is awake and oriented. Continue to follow at this point time. 2. Cardiovascular: Severe sepsis with septic shock. Echocardiogram yesterday showed EF up to 40% with moderate MR. Right atrial pressure estimated around 3. May be slightly on the volume dry side. We will provide small volume bolus tod ay to see if we get him off pressors. Wean as tolerated. Lactate improving 3. Pulmonary: History of complex sleep disordered breathing, continue nocturnal positive airway pressure 4. ID: Presumptive soft tissue infection. CPK normal. CT of the lower extremity showed no evidence of gas formation or osteomyelitis. Cultures negative to date. Day #2 daptomycin and cefepime. Discontinue cefepime based on clinical response and de-escalate to Rocephin. MRSA swab negative. 5. Renal: Acute renal insufficiency likely secondary to ATN due to sepsis. Improved today. Electrolyte replacement protocol in place. 6. Endocrine: Glycemic control per protocol. Cortisol appropriate 7. Heme-onc: Mild anemia. Continue to trend. Leukocytosis secondary to infection. Continue to trend. No other issues. 8. GI: Advance to liquid diet as tolerated 9. When off pressors, will mobilize the patient out of bed to chair. If the patient's hemodynamics improved, and can likely be transferred out of the ICU to the floor and critical care services will sign off. The above recommendations and plan were extensively discussed with the patient as well as with the ICU nurse and on multidisciplinary rounds. Questions were answered to the best of my ability. The patient expressed understanding and is in agreement with plan as outlined. Admission and Anticipated Discharge Date Admission Date: October 13, 2021 Subjective Patient seen and examined. EMR reviewed. Discussed with critical care nurse at bedside. Patient is awake alert and conversant. He states he is feeling better. He is not having any significant pain. He feels the swelling in his leg is less. He denies chest pain palpitations or significant lower extremity edema Review of Systems Review of Systems: All systems reviewed & are unremarkable except as noted in Subjective Physical Exam Constitutional: WD/WN, vitals as above + morbidly obese; no acute distress, not in distress, not diaphoretic and not lethargic Neck: trachea midline, no thyromegaly Respiratory: normal respiratory effort, lungs clear to auscultation Cardiovascular: RRR, no murmur, no edema Gastrointestinal (Abdomen): normal bowel sounds, soft, nontender, no hepatosplenomegaly Musculoskeletal: Extremities: extremities normal to inspection Skin: Erythema unchanged. No significant advancement of the margin. Lymphatic: no cervical lymphadenopathy Results & Data Results & Data ([facility]) Vital Signs (Past 12 Hours) Vital Signs Temp Pulse Resp BP Pulse Ox 10/14/21 04:00 71 90/55 L 10/14/21 03:00 38.5 C H 70 28 H 113/57 L 97 10/14/21 02:20 70 28 H 96 10/14/21 01:58 70 27 H 110/55 L 93 10/14/21 01:08 38.1 C H 70 27 H 97/55 L 95 10/14/21 01:00 38.1 C H 70 26 H 109/49 L 93 10/14/21 00:00 38 C H 70 25 H 109/46 L 97 10/13/21 23:30 38.1 C H 70 27 H 115/57 L 94 10/13/21 23:04 38.3 C H 70 28 H 115/57 L 96 10/13/21 23:01 70 26 H 94 10/13/21 23:00 70 23 117/49 L 95 10/13/21 22:30 70 21 95 10/13/21 22:00 39.1 C H 70 21 108/52 L 97 10/13/21 21:30 69 27 H 114/51 L 96 10/13/21 21:00 39.4 C H 70 23 121/57 L 98 10/13/21 20:30 70 28 H 115/51 L 97 10/13/21 20:00 39.2 C H 70 29 H 106/49 L 97 10/13/21 19:49 70 22 101/51 L Critical Care Results & Data Vital Signs (Past 12 Hours) Vital Signs Temp Pulse Resp BP Pulse Ox 10/14/21 04:00 71 90/55 L 10/14/21 03:00 38.5 C H 70 28 H 113/57 L 97 10/14/21 02:20 70 28 H 96 10/14/21 01:58 70 27 H 110/55 L 93 10/14/21 01:08 38.1 C H 70 27 H 97/55 L 95 10/14/21 01:00 38.1 C H 70 26 H 109/49 L 93 10/14/21 00:00 38 C H 70 25 H 109/46 L 97 10/13/21 23:30 38.1 C H 70 27 H 115/57 L 94 10/13/21 23:04 38.3 C H 70 28 H 115/57 L 96 10/13/21 23:01 70 26 H 94 10/13/21 23:00 70 23 117/49 L 95 10/13/21 22:30 70 21 95 10/13/21 22:00 39.1 C H 70 21 108/52 L 97 10/13/21 21:30 69 27 H 114/51 L 96 10/13/21 21:00 39.4 C H 70 23 121/57 L 98 10/13/21 20:30 70 28 H 115/51 L 97 10/13/21 20:00 39.2 C H 70 29 H 106/49 L 97 Lab & Micro Results (Past 24 Hours) RBC 3.49 M/uL (4.7-6.1) L 10/14/21 WBC 11.88 K/uL (4.8-10.8) H 10/14/21 Hgb 10.7 g/dL (14.0-18.0) L 10/14/21 Hct 31.5 % (42-52) L 10/14/21 MCV 90.3 fL (80-100) 10/14/21 MCH 30.7 pg (25-34) 10/14/21 MCHC 34.0 g/dL (32-36) 10/14/21 RDW Standard Deviation 60.9 fL (36.4-46.3) H 10/14/21 RDW Coefficient of Variation 18.4 % (11.5-14.5) H 10/14/21 Plt Count 168 K/uL (130-400) 10/14/21 MPV 9.4 fL (7.4-10.4) 10/14/21 Neutrophils (%) (Auto) 87.0 % 10/14/21 Lymphocytes (%) (Auto) 3.6 % 10/14/21 Monocytes # (Auto) 1.04 K/uL (0.11-0.59) H 10/14/21 Eosinophils # (Auto) 0.02 K/uL (0-0.5) 10/14/21 Immature Granulocyte % (Auto) 0.3 % 10/14/21 Neutrophils # (Auto) 10.35 K/uL (1.4-6.5) H 10/14/21 Lymphocytes # (Auto) 0.43 K/uL (1.2-3.4) L 10/14/21 Monocytes # (Auto) 1.04 K/uL (0.11-0.59) H 10/14/21 Eosinophils # (Auto) 0.02 K/uL (0-0.5) 10/14/21 Basophils # (Auto) 0.01 K/uL (0-0.2) 10/14/21 Immature Granulocyte # (Auto) 0.03 K/uL (0.00-0.02) H 10/14/21 Na 136 mmol/L (136-145) 10/14/21 K 3.6 mmol/L (3.5-5.1) 10/14/21 Cl 100 mmol/L (98-107) 10/14/21 CO2 27 mmol/L (21-32) 10/14/21 Anion Gap 9 (3-11) 10/14/21 BUN 37 mg/dl (6-23) H 10/14/21 Creatinine 1.35 mg/dl (0.6-1.4) 10/14/21 Estimated GFR ( Amer) 68.0 ml/min 10/14/21 Estimated GFR (Non-Af Amer) 58.7 ml/min 10/14/21 BUN/Creatinine Ratio 27.4 (10-20) H 10/14/21 Glu 194 mg/dl (70-99(Fasting)) H 10/14/21 Ca 8.9 mg/dl (8.5-10.1) 10/14/21 Phosphorus Level 3.2 mg/dl (2.5-4.9) 10/14/21 Total Bilirubin 2.3 mg/dl (0.2-1.0) H 10/13/21 AST 22 U/L (13-39) 10/13/21 ALT 16 U/L (7-52) 10/13/21 Alkaline Phosphatase 65 U/L (34-104) 10/13/21 TP 6.9 gm/dl (6.0-8.3) 10/13/21 Albumin 4.0 gm/dl (3.4-5.0) 10/13/21 Globulin 2.9 gm/dl (2.5-4.0) 10/13/21 Albumin/Globulin Ratio 1.4 (0.9-2) 10/13/21 Mg 1.6 mg/dl (1.7-2.4) L 10/14/21 05:21 10/14/21 Calcium Level 8.9 mg/dl (8.5-10.1) 10/14/21 05:21 10/14/21 Prothromb Time International Ratio 1.0 (0.9-1.1) 10/13/21 09:44 10/13/21 Venous Blood pH 7.43 (7.36-7.41) H 10/13/21 10:54 10/13/21 Venous Blood Partial Pressure CO2 39 mmHg (38-50) 10/13/21 10:54 10/13/21 Venous Blood Partial Pressure O2 44 mmHg 10/13/21 10:54 10/13/21 Venous Blood HCO3 25 mmol/L 10/13/21 10:54 10/13/21 Venous Blood Base Excess 1.2 mEq/L 10/13/21 10:54 10/13/21 Venous Blood Oxygen Saturation 78.2 % 10/13/21 10:54 10/13/21 Blood Gas Barometric Pressure 733.5 mm/Hg 10/13/21 10:54 10/13/21 Blood Gas Barometric Pressure 733.5 mm/Hg 10/13/21 10:54 10/13/21 Diagnostic Findings (Past 24 Hours) Chest X-Ray 10/13/21 09:49 SINGLE VIEW CHEST CLINICAL HISTORY: Fever. Dyspnea. FINDINGS: 2 AP, portable, upright chest radiographs are compared to study dated 05/18/2018 and correlated with chest CT dated 05/25/2018. A 2-lead cardiac AICD is unchanged in position. The heart is enlarged. There is pulmonary vascular congestion. Atelectasis is noted the lung bases. The lungs and pleural spaces are clear. No pneumothorax is seen. The bony thorax is grossly intact. IMPRESSION: Cardiomegaly and AICD with evidence of congestive failure. ACT 112: Negative or not required by law. Electronically signed by: Blanco Bazan M.D. 10/13/2021 10:[address] 10/13/21 12:22 CT tib/fib RT wo con CLINICAL HISTORY: Right leg swelling, erythema and increased warmth. Evaluate for cellulitis. COMPARISON STUDY: No previous studies for comparison. CT DOSE: 404.87 mGy.cm TECHNIQUE: Standard CT of the right lower leg is performed without IV contrast. Multiplanar reconstruction is performed. A dose lowering technique was utilized adhering to the principles of ALARA. FINDINGS: Lack of intravenous contrast significantly limits the study. Bones: The bones appear osteopenic. There is no evidence for cortical destruction or CT evidence for osteomyelitis. There is no evidence for an acute fracture or dislocation. There are no lytic or blastic lesions. Joints: There is joint space narrowing and degenerative changes present in the joint characteristic of moderate to marked osteoarthritis. Mild diffuse joint space narrowing is also seen at the ankle joint. The bones are in anatomic alignment. Soft tissues: There is diffuse subcutaneous edema present involving the lower leg beginning at the level of the knee joint and extending inferiorly to the ankle joint. Diffuse skin thickening is also present. There are no focal fluid collections. There is atrophy of the gastrocnemius muscle posteriorly. Lack of intravenous contrast limits evaluation of the remaining muscular structures. IMPRESSION: 1. No acute osseous pathology. No evidence for osteomyelitis. 2. Diffuse subcutaneous edema and skin thickening characteristic of cellulitis with no focal fluid collection identified on these limited noncontrast images. 3. Atrophy of the gastrocnemius muscle. ACT 112: Negative or not required by law. Electronically signed by: Abdon Art M.D. 10/13/2021 3:03 PM Venous Doppler Study 10/13/21 12:42 ULTRASOUND RIGHT LOWER EXTREMITY VENOUS CLINICAL HISTORY: Right calf pain and erythema. COMPARISON STUDY: No priors. TECHNIQUE: Real-time, grayscale, and color Doppler sonography of the deep veins of the right lower extremity was performed from the inguinal crease to the calf. Compression and augmentation were utilized. FINDINGS: There is no sonographic evidence of deep venous thrombosis identified in the right lower extremity. The common femoral, superficial femoral, and popliteal veins are patent and normally compressible. The greater saphenous vein and the profunda femoris vein at the junction with the common femoral vein are clear. The visualized calf veins are patent. IMPRESSION: There is no sonographic evidence of deep venous thrombosis identified in the right lower extremity. ACT 112: Negative or not required by law. Electronically signed by: Blanco Bazan M.D. 10/14/2021 7:01 AM Chest X-Ray 10/13/21 15:15 XR chest 1V portable CLINICAL HISTORY: line placement TECHNIQUE: Single frontal radiograph of the chest was obtained. Comparison: Comparison is made to chest one view 10/13/2021 FINDINGS: Pacemaker defibrillator is seen. Right venous catheter terminates in the mid SVC. Cardiomegaly is noted. The lungs are clear. No evidence of pleural effusion or pneumothorax. IMPRESSION: Cardiomegaly without evidence of acute abnormality. ACT 112: Negative or not required by law. Electronically signed by: Gregor Cardona M.D. 10/13/2021 3:28 PM I & O Totals 24 Hours 10/13/21 10/14/21 10/15/21 06:59 06:59 06:59 Intake Total 2276.053 / 2276.053 Output Total 2225 / 2225 Balance 51.053 / 51.053 Cumulative 10/13/21 09:12 thru 10/14/21 05:47 Intake Total 2276.053 Output Total 2225 Balance 51.053 RT Ventilator Mngmt (Last Documented) Ventilator Ordered Settings Respiratory Rate 28 10/14/21 03:00 Ventilator - PT Measurements Respiratory Rate 28 Coding Level of Care Code 41962 Subseq Hosp Care Lvl 3 Diagnoses Severe sepsis with septic shock A41.9; R65.21 Systolic congestive heart failure I50.20 Heart failure chronicity: unspecified Acute renal failure N17.9 Lactic acidosis E87.2 Morbid obesity E66.01 Soft tissue infection L08.9 (1) Systolic congestive heart failure Heart failure chronicity: unspecified Qualified Code(s): I50.20 - Unspecified systolic (congestive) heart failure
[2021-10-14] MEDS ORDERED: LACTATED RINGER'S 1,000 ML IV ONE (07:59)
[2021-10-14] MEDS: AMIODARONE 200 MG TAB PO SCH (08:32)
[2021-10-14] MEDS: CLOTRIMAZOLE 1% CR 15 GM TUBE EXT SCH ×2 (08:32→21:00)
[2021-10-14] MEDS ORDERED: Nursing to Pharmacy Communication SCH (09:15)
[2021-10-14] MEDS: cefTRIAXone SODIUM 2,000 MG in DEXTROSE 5% 50 ML IV SCH (12:20)
[2021-10-14] MEDS: DAPTOmycin 625 MG in SYRINGE 0 ML IV SCH (12:21)
--- NOTE | 2021-10-14 12:25 | Hospitalist Progress Note ---
Date of Service October 14, 2021 Assessment & Plan (1) Sepsis: Plan: Lenard is a 56-year-old male with a past medical history of CHF, AICD, cardiomyopathy, hypertension, restrictive lung disease who presented to the ER with fever, chills, and shortness of breath. Also had right leg pain and swelling overnight. He is COVID vaccinated. On initial ER evaluation patient was hypotensive 96/49, with a temperature of 38.3, tachypneic to 26. EKG 79 bpm atrially paced without acute territorial ST segment elevations, QT was prolonged at 513 with a nonspecific intraventricular conduction delay. Pt required norepi for pressure support and has been recommended for admission for sepsis. Sepsis 2/ ?RLE cellulitis Leukocytosis to 19.08, Febrile to 38.3 on admission, Hypotensive to 96/49 on admission - WBC downtrending Right lower extremity venous Dopplers pending - EKG: atrial paced. IVCD, QTp. Prior EKG sinus w/ PVC, no QTp Norepinephrine drip started in ER. Weaned this morning, following serial pressures. May be candidate for downgrade today Given empiric Doxy, Rocephin, Dapto in ER. - Continued on cefepime/dapto then narrowed to rocephin/dapto. Continue. Lactate 3.1 on admission, procalcitonin 1.06 COVID and flu negative by PCR High-sensitivity troponin 33, peaked at 38, down trended to 26 - CXR: Cardiomegaly with AICD. Pulmonary vascular congestion, evidence of congestive failure. -BNP: 57, wnl TSH normal 09/20/2021 - CT RLE with subcutaneous edema and skin thickening suggestive of cellulitis, no fluid or gas appreciated blood cultures NGTD -Repeat TTE: Global hypokinesis of left ventricle. Ejection fraction 40%, prior EF 2020 28% Left lower extremity with annular rash, not overtly cellulitic.? Tinea, clotrimazole ordered No evidence of right DVT on Doppler - Improving (2) Cellulitis: Plan: As above (3) Congestive heart failure with left ventricular diastolic dysfunction: Plan: Nonischemic cardiomyopathy - Echo 09/09/2020: EF 28%, akinesis of distal anterior and distal anteroseptal wall segments and otherwise global hypokinesis. Cardiac cath 09/2020 due to positive stress test. Normal coronary arteries without significant stenosis, mild elevated left ventricular end-diastolic pressure, right dominant system, no signs of aortic stenosis Last office visit 09/20/2021. Compensated nonischemic cardiomyopathy with mild peripheral edema, no evidence of pulmonary edema. Was recommended to continue carvedilol, spironolactone, diuretic, losartan at that time. ICD in place, 1 episode of rapid V. tach 11/2020. Events since that time, patient reports device has not fired recently. Continues low-dose amiodarone Carvedilol 25 mg p.o. twice daily held for hypotension - LAURA as noted - trops as above (4) Sleep apnea: Plan: Restrictive lung disease, history of severe sleep apnea on CPAP Last seen by pulmonology 03/2021 Sleep disordered breathing, severe sleep apnea. Recommended to continue using CPAP, which is medically necessary for him. Restrictive breathing thought to be exclusively due to body habitus - CPAP qHS, SpO2 goal >88% (5) Ventricular tachycardia: Plan: As above, no recurrence since initial episode per patient (6) Restrictive lung disease: Plan: CPAP, as above (7) AICD (automatic cardioverter/defibrillator) present: Plan: As above (8) Cardiomyopathy: Plan: As above (9) Prerenal azotemia: Plan: - Cr 1.7 on admit, baseline normal - Decreased to 1.35 with abx and fluid tx - Trend Plan: DVT prophylaxis: Heparin CODE STATUS: Full code, surrogate decision maker would be son Diet: Heart healthy Admission and Anticipated Discharge Date Admission Date: October 13, 2021 Subjective Feeling improved. Breathing is more comfortable. No chest pain, chest pressure. Reduce swelling in legs. Patient reports he did have fevers and chills overnight, none since breakfast this morning. Review of Systems Review of Systems: All systems reviewed & are unremarkable except as noted in Subjective Physical Exam Physical Exam: General: A&Ox3. Obese. Cooperative. HEENT: Atraumatic, normocephalic. JVD unable to be assessed due to neck habitus. Pupils equal and reactive to light and accommodation. Extraocular movements intact without nystagmus. Vision and hearing grossly intact. Pulm: Distant, crackles in bases, no overt rales/wheezes. Metrical chest rise. Cardiac: RRR, soft systolic murmur Radial pulses intact and symmetrical. Abdominal: Obese, nontender, nondistended, soft. BS present. Extremities: Right lower extremity with anterior lewis red, warm. Slightly improved edema from prior. No progression past marked line. Left ankle with annular rash with satellites, no warmth/tenderness. [employer] strength, elbow flexion/extension, ankle flexion/extension 5/5 bilaterally without asymmetry Results & Data Results & Data ([facility]) Vital Signs (Past 12 Hours) Vital Signs Temp Pulse Resp BP Pulse Ox 10/14/21 10:00 37.3 C 70 20 86 L 10/14/21 09:00 37.3 C 70 21 96 10/14/21 08:00 37.7 C H 70 24 90/55 L 97 10/14/21 07:00 38.1 C H 71 23 95 10/14/21 06:00 70 28 H 97 10/14/21 05:00 38.7 C H 70 29 H 94 10/14/21 04:00 70 26 H 90/55 L 97 10/14/21 03:00 38.5 C H 70 28 H 113/57 L 97 10/14/21 02:20 70 28 H 96 10/14/21 01:58 70 27 H 110/55 L 93 10/14/21 01:08 38.1 C H 70 27 H 97/55 L 95 10/14/21 01:00 38.1 C H 70 26 H 109/49 L 93 PG Care Time/CCT Total # of Minutes Spent Total Time Spent with Patient: Total time spent is greater than 50% in coordination of care (as documented) at patient's floor/unit and/or counseling patient: Coding Level of Care Code 51787 Subseq Hosp Care Lvl 2 Diagnoses Sepsis A41.9 Cellulitis L03.90 Congestive heart failure with left ventricular diastolic dysfunction I50.30 Sleep apnea G47.30 Ventricular tachycardia I47.2 Restrictive lung disease J98.4 AICD (automatic cardioverter/defibrillator) present Z95.810 Cardiomyopathy I42.9 Prerenal azotemia R79.89
[2021-10-14] MEDS: ACETAMINOPHEN 500 MG TAB PO PRN (12:42)
--- NOTE | 2021-10-15 00:57 | Communication Note ---
Date of Service: October 15, 2021 56yoM with significant history of nonischemic cardiomyopathy, diastolic heart failure, ventricular fibrillation and prior implantation of a dual-chamber ICD with prior bouts of NSVT (last I see reported is 11/2020 per EP notes) who is here for septic shock, now PCU status. Informed by patient's RN at 0045 that patient had an 18-beat run of non-sustained ventricular tachycardia. At that time, he was reportedly asymptomatic - no lightheadedness, dizziness, CP, palpitations. No sensation of ICD therapy. His vitals were reported as 125/62, RR 24, SpO2 95% on CPAP, HR 70 afterwords. On exam, patient resting comfortably, denying symptoms. Vitals as above. Appears well perfused. Interactive and responding to questions appropriately. Cardiac - NRRR, +S1/S2 w/o m/r/g. Lungs - CTAB w/o crackles or wheezes - though somewhat difficult exam given habitus. Extremities - capillary refill < 3 seconds. I see he has a history of this, but bouts have been few and far between. He is on amiodarone, low dose therapy. Certainly there is a degree of physiologic stress present in the setting of his sepsis. His CPAP is in-place. His repeat TTE demonstrated global L hypokinesis with EF 40% (prior in 2020 28%) earlier today. Will recheck BMP, Mg, Phos to ensure electrolytes are at goal. Will obtain repeat ECG now as well. If these persist throughout the night / stay despite resolution of current situation, may wish to consider EP consult and amiodarone adjustment. Resident Activity Tracking Resident Involvement: Resident Care Provided Care Provided: Adult [facility]
[2021-10-15 02:11] LABS: BUN Creatinine Ratio 23.5 (10-20); Calcium 9.1 mg/dl (8.5-10.1); Creatinine Clr Calc Pharmacy 105.5 ml/min; Est GFR (African American) 79.2 ml/min; Est GFR (Non-African American) 68.4 ml/min; Magnesium 2.3 mg/dl (1.7-2.4); Phosphorus 3.2 mg/dl (2.5-4.9); Potassium 3.7 mmol/L (3.5-5.1)
[2021-10-15 05:29] LABS: Hematocrit (blood only) 30.7 % (42-52); Hemoglobin 9.9 g/dL (14.0-18.0); Mean Corpuscular Hgb Conc 32.2 g/dL (32-36); Mean Platelet Volume 9.5 fL (7.4-10.4); Platelet Count 150 K/uL (130-400); RDW Coefficient of Variation 18.2 % (11.5-14.5); RDW Standard Deviation 61.9 fL (36.4-46.3); White Blood Count 7.38 K/uL (4.8-10.8)
[2021-10-15] MEDS: HEPARIN SOD 5,000 UNIT/0.5 ML VIAL SQ SCH ×3 (05:53→21:30)
[2021-10-15 06:00] LABS: BUN Creatinine Ratio 23.5 (10-20); Calcium 9.2 mg/dl (8.5-10.1); Creatinine Clr Calc Pharmacy 109.2 ml/min; Est GFR (African American) 82.6 ml/min; Est GFR (Non-African American) 71.2 ml/min; Magnesium 2.3 mg/dl (1.7-2.4); Phosphorus 3.2 mg/dl (2.5-4.9); Potassium 3.7 mmol/L (3.5-5.1)
[2021-10-15 06:30] LABS: Basophils # (auto) 0.01 K/uL (0-0.2); Basophils % (auto) 0.1 %; Eosinophils # (auto) 0.14 K/uL (0-0.5); Eosinophils % (auto) 1.9 %; Immature Granulocytes # (auto) 0.01 K/uL (0.00-0.02); Immature Granulocytes % (auto) 0.1 %; Lymphocytes # (auto) 0.74 K/uL (1.2-3.4); Monocytes # (auto) 0.81 K/uL (0.11-0.59); Neutrophils # (auto) 5.67 K/uL (1.4-6.5); Neutrophils % (auto) 76.9 %; Polychromasia 1+
[2021-10-15] MEDS: AMIODARONE 200 MG TAB PO SCH (08:31)
[2021-10-15] MEDS: INSULIN ASPART PER UNIT SC SCH ×4 (08:31→21:30)
[2021-10-15] MEDS: CLOTRIMAZOLE 1% CR 15 GM TUBE EXT SCH ×2 (08:32→21:32)
[2021-10-15] MEDS: POTASSIUM CHLORIDE CRTAB 20 MEQ TABCR PO SCH (08:33)
[2021-10-15] MEDS: DAPTOmycin 625 MG in SYRINGE 0 ML IV SCH (12:14)
[2021-10-15] MEDS: cefTRIAXone SODIUM 2,000 MG in DEXTROSE 5% 50 ML IV SCH (12:14)
--- NOTE | 2021-10-15 12:57 | Hospitalist Progress Note ---
Date of Service October 15, 2021 Assessment & Plan (1) Sepsis: Plan: Lenard is a 56-year-old male with a past medical history of CHF, AICD, cardiomyopathy, hypertension, restrictive lung disease who presented to the ER with fever, chills, and shortness of breath. Also had right leg pain and swelling overnight. He is COVID vaccinated. On initial ER evaluation patient was hypotensive 96/49, with a temperature of 38.3, tachypneic to 26. EKG 79 bpm atrially paced without acute territorial ST segment elevations, QT was prolonged at 513 with a nonspecific intraventricular conduction delay. Pt required norepi for pressure support and has been recommended for admission for sepsis. Sepsis 2/ ?RLE cellulitis Leukocytosis to 19.08, Febrile to 38.3 on admission, Hypotensive to 96/49 on admission - WBC downtrending Right lower extremity venous Dopplers pending - EKG: atrial paced. IVCD, QTp. Prior EKG sinus w/ PVC, no QTp Norepinephrine drip started in ER. Weaned this morning, following serial pressures. May be candidate for downgrade today Given empiric Doxy, Rocephin, Dapto in ER. - Continued on cefepime/dapto then narrowed to rocephin/dapto Lactate 3.1 on admission, procalcitonin 1.06 COVID and flu negative by PCR High-sensitivity troponin 33, peaked at 38, down trended to 26 - CXR: Cardiomegaly with AICD. Pulmonary vascular congestion, evidence of congestive failure. -BNP: 57, wnl TSH normal 09/20/2021 - CT RLE with subcutaneous edema and skin thickening suggestive of cellulitis, no fluid or gas appreciated, no evidence of osteo- blood cultures NGTD -Repeat TTE: Global hypokinesis of left ventricle. Ejection fraction 40%, prior EF 2020 28% Left lower extremity with annular rash, not overtly cellulitic.? Tinea, clotrimazole ordered. Nearly completely resolved 10/15 No evidence of right DVT on Doppler - Improving We will narrow to Rocephin/Doxy with target of cefdinir/Doxy as discharge option if doing to do well (2) Cellulitis: Plan: As above (3) Congestive heart failure with left ventricular diastolic dysfunction: Plan: Nonischemic cardiomyopathy - Echo 09/09/2020: EF 28%, akinesis of distal anterior and distal anteroseptal wall segments and otherwise global hypokinesis. Cardiac cath 09/2020 due to positive stress test. Normal coronary arteries without significant stenosis, mild elevated left ventricular end-diastolic pressure, right dominant system, no signs of aortic stenosis Last office visit 09/20/2021. Compensated nonischemic cardiomyopathy with mild peripheral edema, no evidence of pulmonary edema. Was recommended to continue carvedilol, spironolactone, diuretic, losartan at that time. ICD in place, 1 episode of rapid V. tach 11/2020. Events since that time, patient reports device has not fired recently. Continues low-dose amiodarone Carvedilol 25 mg p.o. twice daily held for hypotension. Resume if blood pressure normalizes - LAURA as noted - trops as above (4) Sleep apnea: Plan: Restrictive lung disease, history of severe sleep apnea on CPAP Last seen by pulmonology 03/2021 Sleep disordered breathing, severe sleep apnea. Recommended to continue using CPAP, which is medically necessary for him. Restrictive breathing thought to be exclusively due to body habitus - CPAP qHS, SpO2 goal >88% (5) Ventricular tachycardia: Plan: As above, no recurrence since initial episode per patient (6) Restrictive lung disease: Plan: CPAP, as above (7) AICD (automatic cardioverter/defibrillator) present: Plan: As above (8) Cardiomyopathy: Plan: As above (9) Prerenal azotemia: Plan: - Cr 1.7 on admit, baseline normal - Decreased to 1.35 with abx and fluid tx -Remains at baseline, can resume Bumex tomorrow blood pressure and renal function permitting Plan: DVT prophylaxis: Heparin CODE STATUS: Full code, surrogate decision maker would be son Diet: Heart healthy Admission and Anticipated Discharge Date Admission Date: October 13, 2021 Subjective Seen at bedside. Patient reports he feels much better, and is in better spirits today. His leg feels better and hurts much less, but still appears red. Notes the rash in his left ankle has nearly completely resolved. Denies chest pain, chest pressure, shortness of breath, difficulty breathing, fevers, chills, lightheadedness Review of Systems Review of Systems: All systems reviewed & are unremarkable except as noted in Subjective Physical Exam Physical Exam: General: A&Ox3. Obese. Cooperative. HEENT: Atraumatic, normocephalic. JVD unable to be assessed due to neck habitus. Pupils equal and reactive to light and accommodation. Extraocular movements intact without nystagmus. Vision and hearing grossly intact. Pulm: Distant, no overt rales/wheezes. Metrical chest rise. Cardiac: RRR, soft systolic murmur Radial pulses intact and symmetrical. Abdominal: Obese, nontender, nondistended, soft. BS present. Extremities: Right lower extremity with anterior lewis with erythema minimally changed, warmth has improved. No progression past marked line. No fluctuance appreciated on palpation from the knee to ankle. 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/extension, ankle flexion/extension 5/5 bilaterally without asymmetry Results & Data Results & Data ([facility]) Vital Signs (Past 12 Hours) Vital Signs Temp Pulse Pulse Resp BP Pulse Ox 10/15/21 08:00 36.8 C 71 18 136/54 L 94 10/15/21 04:00 37.0 C 70 25 H 126/57 L 92 10/15/21 02:48 70 27 H 97 PG Care Time/CCT Total # of Minutes Spent Total Time Spent with Patient: Total time spent is greater than 50% in coordination of care (as documented) at patient's floor/unit and/or counseling patient: Coding Level of Care Code 72976 Subseq Hosp Care Lvl 3 Diagnoses Sepsis A41.9 Cellulitis L03.90 Congestive heart failure with left ventricular diastolic dysfunction I50.30 Sleep apnea G47.30 Ventricular tachycardia I47.2 Restrictive lung disease J98.4 AICD (automatic cardioverter/defibrillator) present Z95.810 Cardiomyopathy I42.9 Prerenal azotemia R79.89
--- NOTE | 2021-10-15 13:32 | Electrocardiogram Report ---
Test Reason : Blood Pressure : / mmHG Vent. Rate : 070 BPM Atrial Rate : 070 BPM P-R Int : 224 ms QRS Dur : 140 ms QT Int : 480 ms P-R-T Axes : 080 078 064 degrees QTc Int : 518 ms Atrial-paced rhythm with prolonged AV conduction Non-specific intra-ventricular conduction block Abnormal ECG When compared with ECG of 13-OCT-2021 09:46, No significant change was found Confirmed by Caleb Sher ([id number]) on 10/15/2021 1:32:49 PM Referred By: REFERRED SELF Confirmed By:Caleb Sher
[2021-10-15] MEDS: ACETAMINOPHEN 500 MG TAB PO PRN (22:27)
[2021-10-16] MEDS: HEPARIN SOD 5,000 UNIT/0.5 ML VIAL SQ SCH ×2 (05:45→14:09)
[2021-10-16] MEDS: AMIODARONE 200 MG TAB PO SCH (07:51)
[2021-10-16] MEDS: POTASSIUM CHLORIDE CRTAB 20 MEQ TABCR PO SCH (07:51)
[2021-10-16] MEDS: CLOTRIMAZOLE 1% CR 15 GM TUBE EXT SCH (07:51)
[2021-10-16] MEDS ORDERED: allopurinoL 300 MG TAB PO SCH (09:00)
[2021-10-16] MEDS ORDERED: CEFDINIR 300 MG CAP PO SCH (09:00)
[2021-10-16] MEDS ORDERED: PANTOprazole 40 MG TAB PO SCH (09:00)
[2021-10-16] MEDS ORDERED: DOXYCYCLINE HYCLATE 100 MG CAP PO SCH (09:00)
[2021-10-16] MEDS ORDERED: FAMOTIDINE 20 MG TAB PO SCH (09:00)
[2021-10-16 10:07] LABS: Basophils # (auto) 0.03 K/uL (0-0.2); Basophils % (auto) 0.4 %; Eosinophils # (auto) 0.14 K/uL (0-0.5); Eosinophils % (auto) 1.9 %; Hematocrit (blood only) 33.1 % (42-52); Hemoglobin 10.9 g/dL (14.0-18.0); Immature Granulocytes # (auto) 0.02 K/uL (0.00-0.02); Immature Granulocytes % (auto) 0.3 %; Lymphocytes # (auto) 0.72 K/uL (1.2-3.4); Lymphocytes % (auto) 9.9 %; Mean Corpuscular Hemoglobin 29.7 pg (25-34); Mean Corpuscular Hgb Conc 32.9 g/dL (32-36); Mean Corpuscular Volume 90.2 fL (80-100); Mean Platelet Volume 9.3 fL (7.4-10.4); Monocytes # (auto) 0.66 K/uL (0.11-0.59); Monocytes % (auto) 9.1 %; Neutrophils # (auto) 5.69 K/uL (1.4-6.5); Neutrophils % (auto) 78.4 %; Platelet Count 203 K/uL (130-400); RDW Coefficient of Variation 17.9 % (11.5-14.5); RDW Standard Deviation 58.9 fL (36.4-46.3); Red Blood Count 3.67 M/uL (4.7-6.1); White Blood Count 7.26 K/uL (4.8-10.8)
[2021-10-16] MEDS: INSULIN ASPART PER UNIT SC SCH ×2 (10:21→12:28)
[2021-10-16 10:25] LABS: Partial Thromboplastin Ratio 1.1; Partial Thromboplastin Time 30.8 Seconds (21.0-31.0)
[2021-10-16 10:33] LABS: BUN Creatinine Ratio 21.6 (10-20); Calcium 9.6 mg/dl (8.5-10.1); Creatinine Clr Calc Pharmacy 116.3 ml/min; Est GFR (African American) 86.2 ml/min; Est GFR (Non-African American) 74.4 ml/min; Magnesium 1.9 mg/dl (1.7-2.4); Phosphorus 2.5 mg/dl (2.5-4.9)
--- NOTE | 2021-10-16 12:31 | Discharge Summary ---
Date of Service October 16, 2021 Admission HPI Per Admitting Provider Lenard is a 56-year-old male with a past medical history of CHF, AICD, cardiomyopathy, hypertension, restrictive lung disease who presented to the ER with fever, chills, and shortness of breath. Also had right leg pain and swelling overnight. He is COVID vaccinated. On initial ER evaluation patient was hypotensive 96/49, with a temperature of 38.3, tachypneic to 26. EKG 79 bpm atrially paced without acute territorial ST segment elevations, QT was prolonged at 513 with a nonspecific intraventricular conduction delay. Lenard reports he has been feeling poorly for 1 to 2 days. He reports he has had increased right lower leg swelling which rapidly worsened overnight. He did experience fever, chills, sweats last night. Had 1 episode of loose bowels this morning, prior to this no nausea/vomiting/diarrhea/constipation. Denies any chest pressure, chest pain, ICD shocks, lightheadedness, or dizziness. No chest pain in prior few weeks months, was seen09/20/21 for routine cardiology followup and felt normal at that time. Right leg has been warm, tender, swollen since yesterday. Left leg has had a rash which started about 2 weeks ago. Has not changed, not itchy, not tender, not warm. Pt has been compliant with CPAP at home. Denies shortness of breath prior to yesterday. Intermittent dry cough today, no preceding cough in the previous few days. +weight gain with fluid in preceding 2 days. No calf pain, no groin pain. No known medication allergies. Medical History: Reviewed Medications: Reviewed Surgical History: Reviewed Allergies: Reviewed Social History: +Medical marijuana. ETOH 3x per week, 3x per sitting. No ETOH in last 5 days. Remote tobacco use in college. Code Status: Son Roberto Carlos Machado would be surrogate DM. [phone]. Full Code. Principal Diagnosis Sepsis 2/2 right lower extremity cellulitis Discharge Exam General: A&Ox3. Obese. Cooperative. HEENT: Atraumatic, normocephalic. JVD unable to be assessed due to neck habitus. Pupils equal and reactive to light and accommodation. Extraocular movements intact without nystagmus. Vision and hearing grossly intact. Pulm: Distant, no overt rales/wheezes. Metrical chest rise. Cardiac: RRR, soft systolic murmur Radial pulses intact and symmetrical. Abdominal: Obese, nontender, nondistended, soft. BS present. Extremities: Right lower extremity with anterior lewis with erythema vastly improved and nearly absent, warmth has resolved. No progression past marked line. No fluctuance appreciated on palpation from the knee to ankle. 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 Independent to bathroom. Discharge Data Allergies Allergy/AdvReac Type Severity Reaction Status Date / Time No Known Allergies Allergy Verified 10/13/21 11:07 Consultations 10/13/21 11:53 ED Decision to Admit Stat 10/13/21 14:35 Consult Supply Chain Intern Routine Ordered Studies 10/13/21 12:22 CT tib/fib RT wo con Stat 10/13/21 12:42 US venous doppler LE RT Routine 10/13/21 13:50 US point of care ultrasound Stat Hospital Course (1) Sepsis: Lenard is a 56-year-old male with a past medical history of CHF, AICD, cardio myopathy, hypertension, restrictive lung disease who presented to the ER with fever, chills, and shortness of breath. Also had right leg pain and swelling overnight. He is COVID vaccinated. On initial ER evaluation patient was hypotensive 96/49, with a temperature of 38.3, tachypneic to 26. EKG 79 bpm atrially paced without acute territorial ST segment elevations, QT was prolonged at 513 with a nonspecific intraventricular conduction delay. Pt required norepi for pressure support and was recommended for admission for sepsis. Treated with broad antibiotics narrowed to cefepime/Dapto then further to Rocephin/Dapto with rapid clinical improvement. At time of discharge patient erythema was nearly completely resolved, and patient was at his baseline level of strength. Patient did decline referral for physical therapy, was able to pass get up and go test with arms crossed across chest. Was discharged to complete antibiotics as below. Want to do as outpatient: 1. Complete 5 additional days of antibiotic therapy with cefdinir 300 mg twice daily and doxycycline 100 mg twice daily and reassessment of right lower extremity cellulitis, greatly improved at time of discharge 2. Continue Protonix 40 mg daily for gastritis protection while on antibiotics and following stress of ICU admission 3. Follow-up with primary care provider, repeat blood pressure check. Spironolactone was held in the setting of hypotension, losartan was decreased to 50 mg. Patient was normotensive at time of discharge. 4. Follow-up with cardiology. Patient does have a history of cardiac disease/SD with cardiac cath 09/2020 which was without significant stenosis. Given demand ischemia and risk factors recommended for close follow-up 5. Patient A1c less than 7 without therapy, but in prediabetic range. Recommended continued follow-up as outpatient and diabetic management per PCP Sepsis / ?RLE cellulitis Leukocytosis to 19.08, Febrile to 38.3 on admission, Hypotensive to 96/49 on admission - WBC downtrending Right lower extremity venous Dopplers pending - EKG: atrial paced. IVCD, QTp. Prior EKG sinus w/ PVC, no QTp Norepinephrine drip started in ER. Weaned following serial pressures. \ Given empiric Doxy, Rocephin, Dapto in ER. - Continued on cefepime/dapto then narrowed to rocephin/dapto Lactate 3.1 on admission, procalcitonin 1.06 COVID and flu negative by PCR High-sensitivity troponin 33, peaked at 38, down trended to 26 - CXR: Cardiomegaly with AICD. Pulmonary vascular congestion, evidence of congestive failure. -BNP: 58, wnl TSH normal 09/20/2021 - CT RLE with subcutaneous edema and skin thickening suggestive of cellulitis, no fluid or gas appreciated, no evidence of osteo- blood cultures NGTD -Repeat TTE: Global hypokinesis of left ventricle. Ejection fraction 40%, prior EF 2020 28% Left lower extremity with annular rash, not overtly cellulitic.? Tinea, clotrimazole ordered. Nearly completely resolved 10/15 and 10/16. Patient discharged with short course of clotrimazole for tinea No evidence of right DVT on Doppler -Continue to improve on Rocephin/Doxy and was at baseline level of function at time of discharge (2) Cellulitis: As above (3) Congestive heart failure with left ventricular diastolic dysfunction: Nonischemic cardiomyopathy - Echo 09/09/2020: EF 28%, akinesis of distal anterior and distal anteroseptal wall segments and otherwise global hypokinesis. Cardiac cath 09/2020 due to positive stress test. Normal coronary arteries without significant stenosis, mild elevated left ventricular end-diastolic pressure, right dominant system, no signs of aortic stenosis Last office visit 09/20/2021. Compensated nonischemic cardiomyopathy with mild peripheral edema, no evidence of pulmonary edema. Was recommended to continue carvedilol, spironolactone, diuretic, losartan at that time. ICD in place, 1 episode of rapid V. tach 11/2020. Events since that time, patient reports device has not fired recently. Continues low-dose amiodarone Carvedilol 25 mg p.o. twice daily held for hypotension. Resume if blood pressure normalizes - LAURA as noted - trops as above (4) Sleep apnea: Restrictive lung disease, history of severe sleep apnea on CPAP Last seen by pulmonology 03/2021 Sleep disordered breathing, severe sleep apnea. Recommended to continue using CPAP, which is medically necessary for him. Restrictive breathing thought to be exclusively due to body habitus - CPAP qHS, SpO2 goal >88% (5) Ventricular tachycardia: As above, no recurrence since initial episode per patient (6) Restrictive lung disease: CPAP, as above (7) AICD (automatic cardioverter/defibrillator) present: As above (8) Cardiomyopathy: As above (9) Prerenal azotemia: - Cr 1.7 on admit, baseline normal -Normalized, Bumex resumed DVT prophylaxis: Heparin CODE STATUS: Full code, surrogate decision maker would be son Diet: Heart healthy Total Time Total Time Spent Total Time Spent (In Minutes): Time spend day of discharge 50 minutes including direct patient care, documentation, review of labs and images, and coordination of care. Discharge Plan Discharge Items Patient Disposition: Home - Self-Care Reason For Visit: SEPSIS Discharge Diagnosis: Sepsis 2/2 RLE Cellulitis Activity: Resume your previous activity Non-emergency contact: Primary Care Provider Call non-emergency contact if: you have any medication questions, your symptoms worsen, your pain is not controlled and your pain is worsening Follow-up/Referrals: Peter Abdalla MD [Physician] - Saul Melgar DO [Primary Care Provider] - Diet: Heart Healthy Addtl Attending Provider Instructions: You were seen in the hospital for sepsis due to a right lower extremity infection called cellulitis. Required temporary stay in the ICU with vasopressor medications, but quickly improved with supportive care and antibiotics. You have been continued on antibiotics as noted below. Your right leg was greatly improved in warmth, swelling, and redness at time of discharge but should be followed as outpatient to ensure complete resolution. Your heart markers, troponin, were slightly elevated during admission and then decreased with your sepsis treatment. This just underlying coronary artery disease and demand ischemia, he did not show signs of an acute heart attack during admission. An ultrasound of your heart showed a pumping fraction of approximately 40%, previously this had been around 28%. Your spironolactone was held due to low blood pressure, please do not take this when you return home. Your dose of losartan has been reduced to 50 mg daily. Please have follow-up blood pressure checks with your primary care doctor who may recommend restarting or adjusting medications further. You have been prescribed an antibiotic, cefdinir. Please continue to take cefdinir 300 mg twice daily for 5 days. You have also been prescribed an an tibiotic to cover for MRSA called doxycycline. Please take doxycycline 100 mg by mouth twice daily for 5 days. Antibiotics can be rough on the stomach, you have been prescribed a short course of pantoprazole and acid reducing medicine to help protect your stomach while on antibiotics. Doxycycline can make your skin extra sensitive to sunlight, please avoid prolonged direct sunlight or sunburns while on this medication. Being on any antibiotic increases the risk of an infection called C. difficile, you may take an ofqt-smu-bokjanc probiotic with meals which can help reduce this risk. A follow-up appointment has been scheduled for you with cardiology. They may recommend a follow-up stress test or other procedure based on your elevated heart markers seen during admission. You were ambulating independently at your baseline level of strength at time of discharge. You were able to pass a get up and go test with your arms crossed against your chest and preferred to be discharged home. You have been provided a script for outpatient physical therapy as needed. If you develop any new or worsening symptoms including fever, chills, sweats, chest pain, chest pressure, difficulty breathing, uncontrolled nausea/vomiting, rash, wheezing, passing out or nearly passing out, bleeding, black/bloody bowel movements, or other new or concerning symptoms please call your primary care physician, or call 911 for re-evaluation in the emergency department if you are very concerned. Pending Studies at Discharge: No Stand-Alone Forms: My [facility], Smoking Cessation Medications and DC Order Prescriptions: New doxycycline hyclate 100 mg Capsule 100 mg PO BID 5 Days Qty: 10 RF: 0 cefdinir 300 mg Capsule 300 mg PO BID 5 Days Qty: 10 RF: 0 Continued (DME) CPAP Supplies Misc See Rx Instructions .MEDSUPPLY Qty: 1 RF: 0 (DME) Auto Titrating CPAP Misc See Rx Instructions .MEDSUPPLY Qty: 1 RF: 0 amiodarone 400 mg tablet 200 mg PO DAILY Qty: 45 RF: 3 carvedilol 25 mg tablet 25 mg PO BID Qty: 180 RF: 3 metolazone 5 mg tablet 5 mg PO DAILY PRN (Reason: weight gain) Qty: 30 RF: 2 allopurinol 100 mg tablet 300 mg PO DAILY RF: 0 cholecalciferol (vitamin D3) 50 mcg (2,000 unit) capsule 50 mcg PO DAILY RF: 0 acetaminophen 500 mg tablet 500 mg PO Q4H PRN (Reason: Fever Or Pain) RF: 0 omega-3 fatty acids 1,250 mg capsule 1,250 mg PO DAILY RF: 0 clotrimazole-betamethasone 1-0.05 % cream 1 appln topical DIRECTED PRN (Reason: AFFECTED AREA) RF: 0 potassium chloride [Klor-Con M20] 20 mEq tablet,ER particles/crystals 40 meq PO TID RF: 0 multivitamin Tablet 1 tab PO DAILY RF: 0 bumetanide 2 mg tablet 2 mg PO BID Qty: 60 RF: 3 atorvastatin 80 mg tablet 80 mg PO HS RF: 0 Changed losartan 100 mg tablet 50 mg PO DAILY Qty: 30 RF: 2 Discontinued spironolactone 25 mg tablet 12.5 mg PO DAILY Qty: 45 RF: 5 Discharge Orders: Discharge Order (Routine); Ordered 10/16/21 Ordered By: Twin Khalil Admission Data Admit Date/Time: 10/13/21 12:32 Attending Provider: Twin Khalil Admit Provider: Twin Khalil Primary Care Provider: Saul Melgar Other Providers: Twin Khalil ; Mickey Alvarez Other Interventions: Discharge Summary Assessment (RN) Last Done: 10/16/21 14:15 Coding Level of Care Code D/C DAY MANAGEMENT >30 MINS Diagnoses Sepsis A41.9 Cellulitis L03.90 Congestive heart failure with left ventricular diastolic dysfunction I50.30 Sleep apnea G47.30 Ventricular tachycardia I47.2 Restrictive lung disease J98.4 AICD (automatic cardioverter/defibrillator) present Z95.810 Cardiomyopathy I42.9 Prerenal azotemia R79.89
[2021-10-16] MEDS ORDERED: INSULIN HUMAN REGULAR PER IV STA (12:35)
[2021-10-16] MEDS ORDERED: ATORVASTATIN 40 MG TAB PO SCH (21:00)
== END 2021-10-16 15:53 | disposition home or self-care (01) | DRG 871 ==
LOC: ED 09:32 → 1E 12:32 → 2W 10-15 18:16

== ENCOUNTER 2021-12-27 19:03 | Inpatient (IN) ==
--- NOTE | 2021-12-27 19:52 | Emergency Department Note ---
History of Present Illness General Chief complaint: Shortness of Breath/Dyspnea Stated complaint: SOB, LOW BLOOD PRESSURE Time Seen by Provider: 12/27/21 19:38 History of Present Illness Maximum Pain Intensity: 5 56-year-old male presents to the ED with a chief complaint of exertional dyspnea for the past week. He states that just going up a flight of stairs makes him very short of breath. The patient does not use home oxygen. He denies any chest pains. No fevers or recent illness. No cough. He does have some chronic pedal edema and congestive heart failure although he states that his edema in his legs is good compared to baseline. The patient has no additional complaints at this time. Home Medications Medication Instructions Recorded Confirmed Type acetaminophen 500 mg tablet 500 mg PO Q4H PRN tab 03/28/19 12/27/21 History omega-3 fatty acids 1,250 mg 1,250 mg PO DAILY 03/28/19 12/27/21 History capsule potassium chloride 20 mEq 40 meq PO TID tab 06/03/19 12/27/21 History tablet,extended release(part/cryst) (Klor-Con M) multivitamin 1 tab PO DAILY 12/01/19 12/27/21 History Auto Titrating CPAP #1 ea 03/16/20 12/02/21 Rx CPAP Supplies #1 ea 03/16/20 12/02/21 Rx bumetanide 2 mg tablet 2 mg PO BID #60 tab 10/05/20 12/27/21 Rx cholecalciferol (vitamin D3) 50 50 mcg PO DAILY 04/05/21 12/27/21 History mcg (2,000 unit) capsule atorvastatin 80 mg tablet 80 mg PO HS 10/13/21 12/27/21 History losartan 100 mg tablet 50 mg PO DAILY #30 tab 10/16/21 12/27/21 Rx fluocinonide 0.05 % topical cream 1 applic TOPICAL BID #120 g 11/12/21 12/27/21 Rx amiodarone 400 mg tablet 200 mg PO DAILY #45 tab 12/08/21 12/27/21 Rx carvedilol 25 mg tablet 25 mg PO BID #180 tab 12/09/21 12/27/21 Rx allopurinol 300 mg tablet 300 mg PO DAILY 12/27/21 12/27/21 History metolazone 5 mg tablet 5 mg PO DAILY PRN 12/27/21 12/27/21 History Allergies Allergy/AdvReac Type Severity Reaction Status Date / Time No Known Allergies Allergy Verified 12/27/21 22:39 Past Med/Surg History Medical History Cardiomyopathy, nonischemic 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 Dyslipidemia Elevated bilirubin Former smoker Hemoptysis Metabolic syndrome Non-rheumatic mitral regurgitation Obesity, morbid, BMI 40.0-49.9 Obstructive sleep apnea of adult Shortness of breath Systolic congestive heart failure Ventricular tachycardia (paroxysmal) Social History Smoking Status: Never smoker Tobacco Type: Cigarettes Second Hand Exposure: No; Hx Alcohol Use: No Hx Substance Use: Yes (Medical Marijuana use for knee pain) Last Used Substance: Unknown Preferred Language: Nauruan Communication Ability: Effective Director Of Sustainability Required: No Beliefs That Will Affect Care: None Current Living Situation: Family Feels Safe at Home: Yes Assistive Devices: CPAP Review of Systems A total of 10 systems reviewed and were otherwise negative Physical Exam Vital Signs Vital Signs - 24 hr 12/27/21 19:06 12/27/21 19:52 12/27/21 19:53 Temperature 36.5 C Temperature Source Temporal Artery Scan Pulse Rate 86 68 Pulse Rate [Finger] 70 Pulse Rhythm Regular Respiratory Rate 20 22 22 Respiratory Effort / Characteristics Non-Labored Spontaneous Non-Labored Spontaneous Respiratory Depth Normal Normal Respiratory Pattern Regular Blood Pressure 111/74 Blood Pressure [Right Arm] 114/54 L Blood Pressure Mean 86 Blood Pressure Mean [Right Arm] 74 Blood Pressure Position Sitting Blood Pressure Position [Right Arm] Sitting Pulse Oximetry 80 L 97 97 Oxygen Delivery Method Room Air Nasal Cannula Nasal Cannula Oxygen Flow Rate 3 3 Sepsis Recent Fever Within 48 Hours No Sepsis New/Unexplained Change in Mental Status No Sepsis Action Taken by Nursing No Action Required 12/27/21 21:29 Temperature Temperature Source Pulse Rate Pulse Rate [Finger] 70 Pulse Rhythm Respiratory Rate 22 Respiratory Effort / Characteristics Non-Labored Spontaneous Respiratory Depth Normal Respiratory Pattern Blood Pressure Blood Pressure [Right Arm] 111/61 Blood Pressure Mean Blood Pressure Mean [Right Arm] 77 Blood Pressure Position Blood Pressure Position [Right Arm] Lying Pulse Oximetry 98 Oxygen Delivery Method Nasal Cannula Oxygen Flow Rate 3 Sepsis Recent Fever Within 48 Hours Sepsis New/Unexplained Change in Mental Status Sepsis Action Taken by Nursing CONSTITUTIONAL/VITAL SIGNS: Reviewed / noted above. GENERAL: Non-toxic in appearance. INTEGUMENTARY: Warm, dry, and [place]. HEAD: Normocephalic. EYES: without scleral icterus or trauma. ENT/OROPHARYNX: clear and moist. LYMPHADENOPATHY/NECK: Is supple without lymphadenopathy or meningismus. RESPIRATORY: Diminished to auscultation bilaterally. No increased work of breathing. CARDIOVASCULAR: Regular rate and rhythm. GI/ABDOMEN: Soft and nontender. No organomegaly or pulsatile mass. EXTREMITIES: Warm and well perfused. BACK: No CVA tenderness. NEUROLOGICAL: Intact without focal deficits. PSYCHIATRIC: normal affect. MUSCULOSKELETAL: Normally developed with good muscle tone. TRIAGE NURSING DOCUMENTATION REVIEWED. Course Administered Medications Discontinued Medications Acetaminophen (Acetaminophen 500 Mg Tab) 500 mg PO NOW STA Stop: 12/27/21 19:57 Last Admin: 12/27/21 20:03 Dose: 500 mg Documented by: [id number] Ioversol (Optiray 320 125ml) 120 ml IV ONCE ONE Stop: 12/27/21 21:14 Last Admin: 12/27/21 21:17 Dose: 120 ml Documented by: [id number] Medical Decision Making Differential Diagnosis The differential was considered includes acute myocardial infarction, acute coronary syndrome, myocarditis, pericarditis, pericardial effusions /tamponad, esophageal perforation, pulmonary embolism, pneumonia, pneumothorax, ca rdiomyopathy, congestive heart, anemia , COPD/asthma exacerbation. Medical Records Attestation: I reviewed the patient's medical records. Home Medications Current Medication List: was personally reviewed by me Laboratory Data Attestation: I reviewed the patient's lab results. Result diagrams: 12/27/21 19:25 12/27/21 19:25 Lab Results 12/27/21 12/27/21 12/27/21 Range/Units 19:25 19:25 19:25 WBC 8.43 (4.8-10.8) K/ul RBC 3.71 L (4.63-6.08) M/uL Hgb 11.3 L (14.0-18.0) g/dl Hct 34.3 L (40.1-51.0) % MCV 92.5 (80.0-100.0) fL MCH 30.5 (25.0-34.0) pg MCHC 32.9 (32.0-36.0) g/dL RDW Std Deviation 60.8 H (36.4-46.3) fL RDW Coeff of Kylee 18.5 H (11.5-14.5) % Plt Count 211 (130-400) K/uL MPV 9.9 (9.4-12.4) fL Immature Gran % (Auto) 0.5 % Neut % (Auto) 79.2 % Lymph % (Auto) 10.9 % Custer % (Auto) 7.0 % Eos % (Auto) 1.8 % Baso % (Auto) 0.6 % Neut # (Auto) 6.68 H (1.4-6.5) K/uL Lymph # (Auto) 0.92 L (1.2-3.4) K/uL Custer # (Auto) 0.59 (0.24-0.82) K/uL Eos # (Auto) 0.15 (0-0.50) K/uL Baso # (Auto) 0.05 (0-0.2) K/uL Immature Gran # (Auto) 0.04 H (0.00-0.02) K/uL Absolute Nucleated RBC 0.03 H (0-0) K/uL Nucleated RBC % (auto) 0.4 % PT 11.5 (9.0-12.0) Seconds INR 1.1 (0.9-1.1) APTT 27.9 (21.0-31.0) Seconds PTT Ratio 1.0 D-Dimer 1000 H* (0-500) ug/L FEU Sodium 140 (136-145) mmol/L Potassium 3.9 (3.5-5.1) mmol/L Chloride 106 (98-107) mmol/L Carbon Dioxide 26 (21-32) mmol/L Anion Gap 8 (3-11) BUN 26 H (6-23) mg/dl Creatinine 1.16 (0.6-1.4) mg/dl Est Cr Clr Drug Dosing 107.9 ml/min Est GFR ( Amer) 81.7 ml/min Est GFR (Non-Af Amer) 70.5 ml/min BUN/Creatinine Ratio 22.4 H (10-20) Glucose 146 H (70-99(Fasting)) mg/dl Calcium 9.5 (8.5-10.1) mg/dl Total Bilirubin 2.6 H (0.2-1.0) mg/dl AST 17 (13-39) U/L ALT 16 (7-52) U/L Alkaline Phosphatase 71 (34-104) U/L Troponin I High Sens 19.5 (0-20) pg/ml B-Natriuretic Peptide (0-100) pg/ml Total Protein 7.2 (6.0-8.3) gm/dl Albumin 4.2 (3.4-5.0) gm/dl Globulin 3.0 (2.5-4.0) gm/dl Albumin/Globulin Ratio 1.4 (0.9-2) SARS-CoV-2, RNA, NAAT (NEGATIVE) 12/27/21 12/27/21 Range/Units 19:54 20:34 WBC (4.8-10.8) K/ul RBC (4.63-6.08) M/uL Hgb (14.0-18.0) g/dl Hct (40.1-51.0) % MCV (80.0-100.0) fL MCH (25.0-34.0) pg MCHC (32.0-36.0) g/dL RDW Std Deviation (36.4-46.3) fL RDW Coeff of Kylee (11.5-14.5) % Plt Count (130-400) K/uL MPV (9.4-12.4) fL Immature Gran % (Auto) % Neut % (Auto) % Lymph % (Auto) % Custer % (Auto) % Eos % (Auto) % Baso % (Auto) % Neut # (Auto) (1.4-6.5) K/uL Lymph # (Auto) (1.2-3.4) K/uL Custer # (Auto) (0.24-0.82) K/uL Eos # (Auto) (0-0.50) K/uL Baso # (Auto) (0-0.2) K/uL Immature Gran # (Auto) (0.00-0.02) K/uL Absolute Nucleated RBC (0-0) K/uL Nucleated RBC % (auto) % PT (9.0-12.0) Seconds INR (0.9-1.1) APTT (21.0-31.0) Seconds PTT Ratio D-Dimer (0-500) ug/L FEU Sodium (136-145) mmol/L Potassium (3.5-5.1) mmol/L Chloride (98-107) mmol/L Carbon Dioxide (21-32) mmol/L Anion Gap (3-11) BUN (6-23) mg/dl Creatinine (0.6-1.4) mg/dl Est Cr Clr Drug Dosing ml/min Est GFR ( Amer) ml/min Est GFR (Non-Af Amer) ml/min BUN/Creatinine Ratio (10-20) Glucose (70-99(Fasting)) mg/dl Calcium (8.5-10.1) mg/dl Total Bilirubin (0.2-1.0) mg/dl AST (13-39) U/L ALT (7-52) U/L Alkaline Phosphatase (34-104) U/L Troponin I High Sens (0-20) pg/ml B-Natriuretic Peptide 119 H (0-100) pg/ml Total Protein (6.0-8.3) gm/dl Albumin (3.4-5.0) gm/dl Globulin (2.5-4.0) gm/dl Albumin/Globulin Ratio (0.9-2) SARS-CoV-2, RNA, NAAT NEGATIVE (NEGATIVE) Imaging Data Radiologist's Impression: Chest X-Ray 12/27/21 19:45 SINGLE VIEW CHEST CLINICAL HISTORY: Dyspnea. FINDINGS: An AP, portable, upright chest radiograph is compared to study dated 10/13/2021. A 2-lead cardiac AICD is unchanged in position. The heart is markedly enlarged. There is pulmonary vascular congestion with interstitial edema. Suspect small pleural effusions. No pneumothorax is seen. The skeletal structures are osteopenic. The bony thorax is grossly intact. IMPRESSION: Cardiomegaly and AICD with evidence of congestive failure and pulmonary edema. ACT 112: Negative or not required by law. Electronically signed by: Blanco Bazan M.D. 12/27/2021 8:[address] scan of the chest: Per the radiologist there is findings suggestive of congestive heart failure. No PE. ECG Data Attestation: I personally reviewed and interpreted this ECG as follows: Additional Comments: Twelve-lead EKG: Per my interpretation shows an atrial paced rhythm at a rate of 79. No ST elevation. Normal QTC. MDM Narrative Patient presents with exertional dyspnea for the past week. He reports no specific complaints with regards to infection. He has had a recent cellulitis in his legs about a month ago. The patient was found to have oxygen saturations of 80% on room air. He is saturating in the high 90s on nasal cannula oxygen. The patient has an atrial paced rhythm at a rate of 79. Chest x-ray and CT scan of the chest shows findings suggestive of pulmonary edema and congestive heart failure. CBC is unremarkable. D-dimer was elevated. Chemistry panel was unremarkable. Glucose is 146. Troponin is negative. COVID test was negative. The patient was treated with IV Lasix. He was given some Tylenol for the headache. Because of his exertional symptoms and hypoxia, he will be seen by the hospitalist for further evaluation and care. Impression & Plan Exertional dyspnea, Hypoxia, Acute exacerbation of congestive heart failure Discharge Plan Visit Data Chief Complaint: Shortness of Breath/Dyspnea Stated Complaint: SOB, LOW BLOOD PRESSURE ED Provider: Johnny Muñoz Discharge Problem: Exertional dyspnea, Hypoxia, Acute exacerbation of congestive heart failure Patient Disposition: Being Evaluated by Hospitalist Forms Stand Alone Forms: [facility] Prescriptions Prescriptions: No Action (DME) CPAP Supplies Misc See Rx Instructions .MEDSUPPLY Qty: 1 RF: 0 (DME) Auto Titrating CPAP Misc See Rx Instructions .MEDSUPPLY Qty: 1 RF: 0 amiodarone 400 mg tablet 200 mg PO DAILY Qty: 45 RF: 3 carvedilol 25 mg tablet 25 mg PO BID Qty: 180 RF: 3 cholecalciferol (vitamin D3) 50 mcg (2,000 unit) capsule 50 mcg PO DAILY RF: 0 fluocinonide 0.05 % cream 1 applic topical BID Qty: 120 RF: 1 acetaminophen 500 mg tablet 500 mg PO Q4H PRN (Reason: Fever Or Pain) RF: 0 omega-3 fatty acids 1,250 mg capsule 1,250 mg PO DAILY RF: 0 potassium chloride [Klor-Con M20] 20 mEq tablet,ER particles/crystals 40 meq PO TID RF: 0 multivitamin Tablet 1 tab PO DAILY RF: 0 bumetanide 2 mg tablet 2 mg PO BID Qty: 60 RF: 3 atorvastatin 80 mg tablet 80 mg PO HS RF: 0 losartan 100 mg tablet 50 mg PO DAILY Qty: 30 RF: 2 metolazone 5 mg tablet 5 mg PO DAILY PRN (Reason: WT GAIN) RF: 0 allopurinol 300 mg tablet 300 mg PO DAILY RF: 0 Referrals Referrals: Saul Melgar DO [Primary Care Provider] -
[2021-12-27] MEDS ORDERED: ACETAMINOPHEN 500 MG TAB PO STA (19:56)
[2021-12-27 19:59] LABS: Basophils # (auto) 0.05 K/uL (0-0.2); Basophils % (auto) 0.6 %; Eosinophils # (auto) 0.15 K/uL (0-0.50); Eosinophils % (auto) 1.8 %; Hematocrit (blood only) 34.3 % (40.1-51.0); Hemoglobin 11.3 g/dl (14.0-18.0); Immature Granulocytes # (auto) 0.04 K/uL (0.00-0.02); Immature Granulocytes % (auto) 0.5 %; Lymphocytes # (auto) 0.92 K/uL (1.2-3.4); Lymphocytes % (auto) 10.9 %; Mean Corpuscular Hemoglobin 30.5 pg (25.0-34.0); Mean Corpuscular Hgb Conc 32.9 g/dL (32.0-36.0); Mean Corpuscular Volume 92.5 fL (80.0-100.0); Mean Platelet Volume 9.9 fL (9.4-12.4); Monocytes # (auto) 0.59 K/uL (0.24-0.82); Neutrophils # (auto) 6.68 K/uL (1.4-6.5); Neutrophils % (auto) 79.2 %; Nucleated RBC # (auto) 0.03 K/uL (0-0); Nucleated RBC % (auto) 0.4 %; Platelet Count 211 K/uL (130-400); RDW Coefficient of Variation 18.5 % (11.5-14.5); RDW Standard Deviation 60.8 fL (36.4-46.3); Red Blood Count 3.71 M/uL (4.63-6.08); White Blood Count 8.43 K/ul (4.8-10.8)
[2021-12-27 20:25] LABS: Albumin Globulin Ratio 1.4 (0.9-2); Albumin Level 4.2 gm/dl (3.4-5.0); BUN Creatinine Ratio 22.4 (10-20); Bilirubin,Total 2.6 mg/dl (0.2-1.0); Calcium 9.5 mg/dl (8.5-10.1); Creatinine Clr Calc Pharmacy 107.9 ml/min; Est GFR (African American) 81.7 ml/min; Est GFR (Non-African American) 70.5 ml/min; Potassium 3.9 mmol/L (3.5-5.1); Total Protein 7.2 gm/dl (6.0-8.3)
[2021-12-27 20:27] LABS: INR 1.1 (0.9-1.1); Partial Thromboplastin Time 27.9 Seconds (21.0-31.0); Prothrombin Time 11.5 Seconds (9.0-12.0); Troponin I High Sensitivity 19.5 pg/ml (0-20)
[2021-12-27 20:30] LABS: D Dimer 1000 ug/L FEU (0-500)
--- NOTE | 2021-12-27 20:36 | XRay Report ---
SINGLE VIEW CHEST CLINICAL HISTORY: Dyspnea. FINDINGS: An AP, portable, upright chest radiograph is compared to study dated 10/13/2021. A 2-lead ca rdiac AICD is unchanged in position. The heart is markedly enlarged. There is pulmonary vascular myrna estion with interstitial edema. Suspect small pleural effusions. No pneumothorax is seen. The skeleta l structures are osteopenic. The bony thorax is grossly intact. IMPRESSION: Cardiomegaly and AICD with evidence of congestive failure and pulmonary edema. ACT 112: Negative or not required by law. Electronically signed by: Blanco Bazan M.D. 12/27/2021 8:35 PM
[2021-12-27] MEDS ORDERED: OPTIRAY 320 125ml IV ONE (21:13)
[2021-12-27] MEDS ORDERED: FUROSEMIDE 40 MG/4 ML VIAL IV ONE (22:33)
--- NOTE | 2021-12-27 22:55 | History & Physical Report ---
Date of Service December 27, 2021 Assessment & Plan (1) Exertional dyspnea: Plan: Lenard Machado is a 56yo male with PMHx significant for non-ischemic cardiomyopathy/chronic HFrEF (last EF 40% in 09/2021), AICD, HTN, morbid obesity (BMI 51.8), COTY/OHS (on CPAP) who presented to [facility] ED on 12/27 for exertional dyspnea and orthopnea x1 week. Exertional Dyspnea; Hypoxia; Mild acute HFrEF Exertional dyspnea and orthopnea x1 week, with hypoxia to 80% in the ED. BNP only mildly elevated but CTA chest with pulmonary edema - suspect component of mild acute HFrEF, largely due to dietary non-compliance. However patient also reports possible CPAP malfunction and increase in apneic episodes over last several days which suggests that obesity hypoventilation/COTY is also playing a role. - will hold on diuretics for tonight due to hypotension (see below) - ordered home Bumex 2mg PO BID starting tomorrow AM (assuming that BP allows) - continue home atorvastatin - 1.5L fluid restriction and 2g sodium restriction - supplemental O2 to maintain SpO2 >90% - strict I/Os, daily weights - consulted Cardiology - appreciate recs Mild Hypotension BP 91/60 in the ED, and patient's son reported that his BP was 70s/40s at home when he was having a headache. No reflex tachycardia which suggests that this is more chronic in nature. - hold home Carvedilol and Losartan - consider reduction in patient's chronic anti-hypertensive regimen - per primary team/PCP/Cardiology Morbid Obesity; Obesity Hypoventilation Syndrome; COTY BMI 51.8. Possible CPAP malfunction may be contributing to dyspnea/hypoxia as stated above. - CPAP HS - supplemental O2 as stated above Ventricular tachycardia: continue home Amiodarone Gout: continue home Allopurinol FEN/GI: heart-healthy diet, 2g salt restriction, 1.5L fluid restriction DVT Prophylaxis: Lovenox Code Status: full code Disposition: med/tele (2) Hypotension: (3) Hypoxia: (4) Acute exacerbation of congestive heart failure: (5) Restrictive lung disease: (6) Sleep apnea: (7) Cardiomyopathy: (8) Morbid obesity: (9) Obstructive sleep apnea of adult: (10) AICD (automatic cardioverter/defibrillator) present: History of Present Illness Chief Complaint: shortness of breath Primary Care Provider: Saul Melgar DO Lenard Machado is a 56yo male with PMHx significant for non-ischemic cardiomyopathy/chronic HFrEF (last EF 40% in 09/2021), AICD, HTN, morbid obesity (BMI 51.8), COTY/OHS (on CPAP) who presented to [facility] ED on 12/27 for exertional dyspnea and orthopnea x1 week. Has some LE edema that is chronic but no recent worsening of this. Admits to eating soups with salt and has recently gone out for pizza, chicken wings, and beer although he says he "doesn't usually do this". Follows with Dr. Abdalla but has not been to the HF clinic as of yet. Patient does report that he uses CPAP nightly but that his device has recently been malfunctioning and he is in the process of getting a new one - still uses his old CPAP nightly but is unsure if it is working properly. Patient does re port that he has had many noticeable apneic episodes over the last week at night, which has disrupted his sleep. Denies fever/chills, chest pain, palpitations, N/V, abdominal pain, diarrhea, dysuria, or rash. Of note the patient missed ~2 weeks of Amiodarone one month ago, but re-started the medication 2 weeks ago. Otherwise he has taken all medications, including diuretics, as prescribed. Patient is a never smoker and denies drug use. He is proficient in ADLs/iADLs. In the ED the patient was hypoxic to 80% on room air and improved to high 90s on 3L NC. Otherwise hemodynamically stable. Labs significant for Hgb 11.3 (~baseline), d-dimer 1000, Tbili 2.6 (~baseline). BNP 119. COVID-19 negative. CTA chest showing small bilateral pleural effusions and pulmonary edema. Patient received Tylenol 500mg PO x1 for AARON. Allergies Allergy/AdvReac Type Severity Reaction Status Date / Time No Known Allergies Allergy Verified 12/27/21 22:39 Home Medications Medication Instructions Recorded Confirmed Type acetaminophen 500 mg tablet 500 mg PO Q4H PRN tab 03/28/19 12/27/21 History omega-3 fatty acids 1,250 mg 1,250 mg PO DAILY 03/28/19 12/27/21 History capsule potassium chloride 20 mEq 40 meq PO TID tab 06/03/19 12/27/21 History tablet,extended release(part/cryst) (Klor-Con M) multivitamin 1 tab PO DAILY 12/01/19 12/27/21 History Auto Titrating CPAP #1 ea 03/16/20 12/02/21 Rx CPAP Supplies #1 ea 03/16/20 12/02/21 Rx bumetanide 2 mg tablet 2 mg PO BID #60 tab 10/05/20 12/27/21 Rx cholecalciferol (vitamin D3) 50 50 mcg PO DAILY 04/05/21 12/27/21 History mcg (2,000 unit) capsule atorvastatin 80 mg tablet 80 mg PO HS 10/13/21 12/27/21 History losartan 100 mg tablet 50 mg PO DAILY #30 tab 10/16/21 12/27/21 Rx fluocinonide 0.05 % topical cream 1 applic TOPICAL BID #120 g 11/12/21 12/27/21 Rx amiodarone 400 mg tablet 200 mg PO DAILY #45 tab 12/08/21 12/27/21 Rx carvedilol 25 mg tablet 25 mg PO BID #180 tab 12/09/21 12/27/21 Rx allopurinol 300 mg tablet 300 mg PO DAILY 12/27/21 12/27/21 History metolazone 5 mg tablet 5 mg PO DAILY PRN 12/27/21 12/27/21 History Past Med/Surg History Medical History Cardiomyopathy, nonischemic 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 Dyslipidemia Elevated bilirubin Former smoker Hemoptysis Metabolic syndrome Non-rheumatic mitral regurgitation Obesity, morbid, BMI 40.0-49.9 Obstructive sleep apnea of adult Shortness of breath Systolic congestive heart failure Ventricular tachycardia (paroxysmal) Social History Smoking Status: Former smoker Tobacco Type: Cigarettes Second Hand Exposure: No; Hx Alcohol Use: No Hx Substance Use: Yes Last Used Substance: Unknown Substance Use Type Other:: medical marijuana Preferred Language: [place] Communication Ability: Effective Chair And Couch Maker Required: No Beliefs That Will Affect Care: Muslim Muslim Beliefs: Yazdanism Current Living Situation: Alone Other Information That Helps Us Care for You: No Feels Safe at Home: Yes Safety Concerns: Feels Safe At This Time Assistive Devices: Cane and CPAP Assistive Devices Comment: supplied through [facility] Review of Systems Review of Systems: All systems reviewed & are unremarkable except as noted in HPI & below Physical Exam Physical Exam: General: A&Ox3. NAD. Cooperative. HEENT: Atraumatic, normocephalic. Pulm: Diminished lung sounds bilaterally. -wheezes, -rales, -rhonchi. Symmetrical chest rise. No increase work of breathing. No respiratory distress. Cardiac: RRR, -mrg. Radial pulses intact and symmetrical. Trace pedal edema. Abdominal: soft, non-tender, non-distended, BS x 4 Skin: warm, dry, no rash Results & Data Results & Data ([facility]) Vital Signs (Past 12 Hours) Vital Signs Temp Pulse Pulse Resp BP BP Pulse Ox 12/27/21 21:29 70 22 111/61 98 12/27/21 19:53 70 22 114/54 L 97 12/27/21 19:52 68 22 97 12/27/21 19:06 36.5 C 86 20 111/74 80 L Code Status & VTE Plan Code Status full code - discussed with patient Supervising Physician Co-Signing Physician Notes Attending addendum: I have physically seen this patient, have supervised the medical residents activities, and agree with the H&P unless as otherwise noted. Assessment and Plan: Pulmonary edema/hypoxia/HFrEF- Holding diuretics in ED due to blood pressure in the upper 80s to low 90s systolic Hold carvedilol and losartan The patient will be admitted to telemetry for serial cardiac enzymes, serial EKG's, cardiac rhythm monitoring and a 2-D echocardiogram with Dopplers. Consult cardiology V. tach history- Continue amiodarone Obesity hypoventilation syndrome/COTY- CPAP at bedtime, with target pulse ox 90% Remaining orders and notations as noted Resident Activity Tracking Resident Involvement: Resident Care Provided Care Provided: Adult Hospital Medicine
[2021-12-28] MEDS: ENOXAPARIN INJ 40 MG/0.4 ML SYR SQ SCH ×2 (06:05→17:02)
[2021-12-28 06:07] LABS: Basophils # (auto) 0.05 K/uL (0-0.2); Basophils % (auto) 0.6 %; Eosinophils # (auto) 0.19 K/uL (0-0.50); Eosinophils % (auto) 2.2 %; Hematocrit (blood only) 32.1 % (40.1-51.0); Hemoglobin 10.3 g/dl (14.0-18.0); Immature Granulocytes # (auto) 0.05 K/uL (0.00-0.02); Immature Granulocytes % (auto) 0.6 %; Lymphocytes # (auto) 0.97 K/uL (1.2-3.4); Lymphocytes % (auto) 11.3 %; Mean Corpuscular Hemoglobin 30.1 pg (25.0-34.0); Mean Corpuscular Hgb Conc 32.1 g/dL (32.0-36.0); Mean Corpuscular Volume 93.9 fL (80.0-100.0); Mean Platelet Volume 9.5 fL (9.4-12.4); Monocytes # (auto) 0.59 K/uL (0.24-0.82); Monocytes % (auto) 6.9 %; Neutrophils # (auto) 6.71 K/uL (1.4-6.5); Neutrophils % (auto) 78.4 %; Nucleated RBC # (auto) 0.02 K/uL (0-0); Nucleated RBC % (auto) 0.2 %; Platelet Count 177 K/uL (130-400); RDW Coefficient of Variation 18.7 % (11.5-14.5); RDW Standard Deviation 63.2 fL (36.4-46.3); Red Blood Count 3.42 M/uL (4.63-6.08); White Blood Count 8.56 K/ul (4.8-10.8)
[2021-12-28 06:32] LABS: Calcium 9.1 mg/dl (8.5-10.1); Creatinine Clr Calc Pharmacy 106.1 ml/min; Est GFR (African American) 78.4 ml/min; Est GFR (Non-African American) 67.7 ml/min; Magnesium 1.7 mg/dl (1.7-2.4)
[2021-12-28] MEDS: CHOLECALCIFEROL 1,000 UNITS 25 MCG TAB PO SCH (08:14)
[2021-12-28] MEDS: OMEGA-3 (PURIFIED FISH OIL) 1 GM CAP PO SCH (08:14)
[2021-12-28] MEDS: POTASSIUM CHLORIDE CRTAB 20 MEQ TABCR PO SCH ×3 (08:14→17:02)
[2021-12-28] MEDS: allopurinoL 300 MG TAB PO SCH (08:14)
[2021-12-28] MEDS: AMIODARONE 200 MG TAB PO SCH (08:14)
[2021-12-28] MEDS: ACETAMINOPHEN 325 MG TAB PO PRN ×2 (08:17→21:35)
--- NOTE | 2021-12-28 08:29 | CT Scan Report ---
CT angio chest PE protocol CLINICAL HISTORY: Dyspnea TECHNIQUE: Multidetector row helical CT of the chest was performed with angiographic protocol. Camacho l and sagittal reformations were obtained. Coronal and sagittal MIPS were obtained from the axial portia a set and were submitted for review. Automated dose lowering techniques and/or adjustment according to patient size were utilized for this exam. CT DOSE: 1163.93 mGy.cm Comparison: Comparison is made to CT chest 05/25/2018 FINDINGS: Lungs and pleura: Trace bilateral pleural effusions are seen. Mosaic attenuation is noted. There is b ibasilar atelectasis. Heart and pericardium: Cardiomegaly is seen with biatrial enlargement. Vessels: No evidence of pulmonary embolism. Mediastinum and caridad: Subcentimeter lymph nodes are seen. Chest wall and lower neck: Gynecomastia is noted bilaterally. Abdomen: Unremarkable. Bones: Degenerative changes in the thoracic spine. IMPRESSION: 1. No evidence of pulmonary embolism. 2. Trace bilateral pleural effusions. ACT 112: Negative or not required by law. Electronically signed by: Gregor Cardona M.D. 12/28/2021 8:28 AM
[2021-12-28 08:52] LABS: Estimated Average Glucose 123 mg/dl; Hemoglobin A1C 5.9 % (4.5-5.6)
[2021-12-28] MEDS ORDERED: BUMETANIDE 1 MG TAB PO SCH (09:00)
--- NOTE | 2021-12-28 10:15 | XCELERA ---
[id number]
[2021-12-28] MEDS ORDERED: BUMETANIDE 1 MG in SYRINGE 0 ML IV ONE (11:10)
--- NOTE | 2021-12-28 12:05 | Electrocardiogram Report ---
Test Reason : Blood Pressure : / mmHG Vent. Rate : 079 BPM Atrial Rate : 079 BPM P-R Int : 236 ms QRS Dur : 130 ms QT Int : 440 ms P-R-T Axes : 000 078 052 degrees QTc Int : 504 ms Atrial-paced rhythm with prolonged AV conduction with occasional ventricular-paced complexes Non-specific intra-ventricular conduction block Abnormal ECG When compared with ECG of 15-OCT-2021 01:11, Electronic ventricular pacemaker has replaced Electronic atrial pacemaker Confirmed by Ravindra Moran ([id number]) on 12/28/2021 12:05:13 PM Referred By: REFERRED SELF Confirmed By:Arley Moran
--- NOTE | 2021-12-28 12:41 | Cardiology Consultation ---
Date of Consultation December 28, 2021 Assessment & Plan (1) Exertional dyspnea: (2) Acute exacerbation of congestive heart failure: (3) AICD (automatic cardioverter/defibrillator) present: (4) Cardiomyopathy: (5) Mitral regurgitation: 1. Dyspnea: Most likely etiology for some of his dyspnea would be pulmonary vascular congestion. He is known to have reduced LV systolic function. BNP was mildly elevated. He did have some dietary indiscretion. However, his degree of shortness of breath seem somewhat out of proportion to his level of pulmonary vascular congestion. I think we could affect some diuresis over the next 24 hours and see if his symptoms improve. Significant improvement with diuresis would confirm the diagnosis. Diuretics were initially held due to concerns over hypotension, but a blood pressure appears much better currently. In the absence of improvement with affective diuresis, I think alternative etiology should be sought. He does take chronic amiodarone and there is the potential for some toxicity. He is not appear toxic or have a cough which is most consistent with interstitial lung disease. No crackles on examination. However in the absence of improvement with treatment of pulmonary vascular congestion we could consider more advanced imaging such as a high-resolution CT scan. 2. Cardiomyopathy: Nonischemic. Unfortunately, his medications have been held over concerns of hypotension. The time of his last admission spironolactone was discontinued and losartan was reduced in dose. Think we could reinitiate his carvedilol which would be the most important medication in this regard. We can monitor his renal function and blood pressure determine re-initiation with losartan is possible. He would also likely benefit from initiation Jardiance. That should not have any effect on his blood pressure. Overall LV systolic function appears improved from baseline. 3. Ventricular fibrillation: He did have a an appropriate device therapy in early November. Does recall syncope associated with that episode. He had discontinued his amiodarone at that time. No arrhythmias since November. 4. Mitral regurgitation 5. Normally functioning dual-chamber ICD History of Present Illness Reason for Consultation: Shortness of breath Requesting Physician: Haylie Attending Physician: Nani Woo MD History of Present Illness The patient is a 56-year-old gentleman with a longstanding history of a nonischemic cardiomyopathy, ventricular fibrillation, congestive heart failure and prior implantation of dual-chamber ICD who presents with symptoms of worsening dyspnea. Patient was admitted to the hospital in September this year for lower extremity cellulitis. At that time he appeared to be well compensated with respect to his cardiovascular disease. He was discharged home on a regimen of diuretics, losartan and carvedilol. He had previously been on spironolactone but this was discontinued in September over concerns of hypotension. Losartan dose was also reduced. Patient states that he was feeling well until approximately 1 week ago. At that point he began have more noticeable symptoms exertional intolerance. He limits his activity in any regard. He has a long history of exertional dyspnea. However, he feels that this worsened over the preceding few days to the point where he short of breath even going to the bathroom. He did describe some weight gain and some mild edema. He does not generally have ortho pnea. Generally uses CPAP at nighttime, but his machine is recently been on recall. He reports some dietary indiscretion, but no big changes in his diet. He states that he varies the timing of his medication according to his sleep and wake schedule. However, he does not report missing medications recently. He has some chronic dizziness. This perhaps is been worse lately. He reports a headache recently as well. He is known to have suffered an episode of syncope associated with ventricular fibrillation in November of this year. This was subsequent to stopping amiodarone for few weeks. Allergies Allergy/AdvReac Type Severity Reaction Status Date / Time No Known Allergies Allergy Verified 12/27/21 22:39 Home Medications Medication Instructions Recorded Confirmed Type acetaminophen 500 mg tablet 500 mg PO Q4H PRN tab 03/28/19 12/27/21 History omega-3 fatty acids 1,250 mg 1,250 mg PO DAILY 03/28/19 12/27/21 History capsule potassium chloride 20 mEq 40 meq PO TID tab 06/03/19 12/27/21 History tablet,extended release(part/cryst) (Klor-Con M) multivitamin 1 tab PO DAILY 12/01/19 12/27/21 History Auto Titrating CPAP #1 ea 03/16/20 12/02/21 Rx CPAP Supplies #1 ea 03/16/20 12/02/21 Rx bumetanide 2 mg tablet 2 mg PO BID #60 tab 10/05/20 12/27/21 Rx cholecalciferol (vitamin D3) 50 50 mcg PO DAILY 04/05/21 12/27/21 History mcg (2,000 unit) capsule atorvastatin 80 mg tablet 80 mg PO HS 10/13/21 12/27/21 History losartan 100 mg tablet 50 mg PO DAILY #30 tab 10/16/21 12/27/21 Rx fluocinonide 0.05 % topical cream 1 applic TOPICAL BID #120 g 11/12/21 12/27/21 Rx amiodarone 400 mg tablet 200 mg PO DAILY #45 tab 12/08/21 12/27/21 Rx carvedilol 25 mg tablet 25 mg PO BID #180 tab 12/09/21 12/27/21 Rx allopurinol 300 mg tablet 300 mg PO DAILY 12/27/21 12/27/21 History metolazone 5 mg tablet 5 mg PO DAILY PRN 12/27/21 12/27/21 History Patient History Medical History Cardiomyopathy, nonischemic 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 Dyslipidemia Elevated bilirubin Former smoker Hemoptysis Metabolic syndrome Non-rheumatic mitral regurgitation Obesity, morbid, BMI 40.0-49.9 Obstructive sleep apnea of adult Shortness of breath Systolic congestive heart failure Ventricular tachycardia (paroxysmal) Social History Smoking Status: Former smoker Tobacco Type: Cigarettes Second Hand Exposure: No; Hx Alcohol Use: No Hx Substance Use: Yes Last Used Substance: Unknown Substance Use Type Other:: medical marijuana Preferred Language: [place] Communication Ability: Effective Program/Music Director Required: No Beliefs That Will Affect Care: Pentecostal Pentecostal Beliefs: Lutheran Current Living Situation: Alone Other Information That Helps Us Care for You: No Feels Safe at Home: Yes Safety Concerns: Feels Safe At This Time Assistive Devices: Cane and CPAP Assistive Devices Comment: supplied through [employer] Review of Systems Review of Systems: Per HPI. Right lower leg erythema improving. Physical Exam Physical Exam: The patient is alert and oriented. Mood and affect appeared normal. He answered all questions appropriately. Obese HEENT: Pupils are equal and reactive to light and accommodation. Extraocular movements are intact. The sclerae are anicteric. Neuro: Cranial nerves intact Lungs: Somewhat distant breath sounds. Clear to auscultation bilaterally. He has good air movement without use of accessory muscles. No rales wheezes or rhonchi. Cardiac: Heart demonstrates a regular rate and rhythm. Normal S1 and S2. No murmurs on examination. Pulses: The patient has palpable radial pulses bilaterally that are equal in intensity Extremities: There was no evidence of hypoperfusion. There is no cyanosis or clubbing. Moderate lower extremity edema bilaterally with trophic changes. Erythema involving the anterior tibial aspect of the right lower leg. Skin: I did not appreciate any rashes on examination today. Results & Data ([facility]) Vital Signs (Past 12 Hours) Vital Signs Temp Pulse Pulse Resp BP Pulse Ox 12/28/21 12:08 36.7 C 76 18 143/78 H 94 12/28/21 08:02 36.8 C 72 20 115/69 94 12/28/21 07:15 71 12/28/21 03:51 36.6 C 68 20 100/59 L 97 12/28/21 01:07 36.7 C 70 20 95/40 L 92 12/28/21 01:05 89 Laboratory Results Abnormal Lab Results 12/27/21 12/27/21 12/27/21 19:25 19:25 19:25 WBC 8.43 RBC 3.71 L Hgb 11.3 L Hct 34.3 L MCV 92.5 MCH 30.5 MCHC 32.9 RDW Std Deviation 60.8 H RDW Coeff of Kylee 18.5 H Plt Count 211 MPV 9.9 Immature Gran % (Auto) 0.5 Neut % (Auto) 79.2 Lymph % (Auto) 10.9 [place] % (Auto) 7.0 Eos % (Auto) 1.8 Baso % (Auto) 0.6 Neut # (Auto) 6.68 H Lymph # (Auto) 0.92 L [place] # (Auto) 0.59 Eos # (Auto) 0.15 Baso # (Auto) 0.05 Immature Gran # (Auto) 0.04 H Absolute Nucleated RBC 0.03 H Nucleated RBC % (auto) 0.4 PT 11.5 INR 1.1 APTT 27.9 PTT Ratio 1.0 D-Dimer 1000 H* Sodium 140 Potassium 3.9 Chloride 106 Carbon Dioxide 26 Anion Gap 8 BUN 26 H Creatinine 1.16 Est Cr Clr Drug Dosing 107.9 Est GFR ( Amer) 81.7 Est GFR (Non-Af Amer) 70.5 BUN/Creatinine Ratio 22.4 H Glucose 146 H Estimat Average Glucose Hemoglobin A1c Calcium 9.5 Magnesium Total Bilirubin 2.6 H AST 17 ALT 16 Alkaline Phosphatase 71 Troponin I High Sens 19.5 B-Natriuretic Peptide Total Protein 7.2 Albumin 4.2 Globulin 3.0 Albumin/Globulin Ratio 1.4 SARS-CoV-2, RNA, NAAT 12/27/21 12/27/21 12/28/21 19:54 20:34 05:44 WBC RBC Hgb Hct MCV MCH MCHC RDW Std Deviation RDW Coeff of Kylee Plt Count MPV Immature Gran % (Auto) Neut % (Auto) Lymph % (Auto) [place] % (Auto) Eos % (Auto) Baso % (Auto) Neut # (Auto) Lymph # (Auto) [place] # (Auto) Eos # (Auto) Baso # (Auto) Immature Gran # (Auto) Absolute Nucleated RBC Nucleated RBC % (auto) PT INR APTT PTT Ratio D-Dimer Sodium 141 Potassium 4.0 Chloride 105 Carbon Dioxide 30 Anion Gap 6 BUN 24 H Creatinine 1.20 Est Cr Clr Drug Dosing 106.1 Est GFR ( Amer) 78.4 Est GFR (Non-Af Amer) 67.7 BUN/Creatinine Ratio 20.0 Glucose 151 H Estimat Average Glucose Hemoglobin A1c Calcium 9.1 Magnesium 1.7 Total Bilirubin AST ALT Alkaline Phosphatase Troponin I High Sens B-Natriuretic Peptide 119 H Total Protein Albumin Globulin Albumin/Globulin Ratio SARS-CoV-2, RNA, NAAT NEGATIVE 12/28/21 12/28/21 05:44 05:44 WBC 8.56 RBC 3.42 L Hgb 10.3 L Hct 32.1 L MCV 93.9 MCH 30.1 MCHC 32.1 RDW Std Deviation 63.2 H RDW Coeff of Kylee 18.7 H Plt Count 177 MPV 9.5 Immature Gran % (Auto) 0.6 Neut % (Auto) 78.4 Lymph % (Auto) 11.3 [place] % (Auto) 6.9 Eos % (Auto) 2.2 Baso % (Auto) 0.6 Neut # (Auto) 6.71 H Lymph # (Auto) 0.97 L [place] # (Auto) 0.59 Eos # (Auto) 0.19 Baso # (Auto) 0.05 Immature Gran # (Auto) 0.05 H Absolute Nucleated RBC 0.02 H Nucleated RBC % (auto) 0.2 PT INR APTT PTT Ratio D-Dimer Sodium Potassium Chloride Carbon Dioxide Anion Gap BUN Creatinine Est Cr Clr Drug Dosing Est GFR ( Amer) Est GFR (Non-Af Amer) BUN/Creatinine Ratio Glucose Estimat Average Glucose 123 Hemoglobin A1c 5.9 H Calcium Magnesium Total Bilirubin AST ALT Alkaline Phosphatase Troponin I High Sens B-Natriuretic Peptide Total Protein Albumin Globulin Albumin/Globulin Ratio SARS-CoV-2, RNA, NAAT Diagnostic Findings Chest x-ray obtained the time admission revealed cardiomegaly and pulmonary vascular congestion Chest CTA obtained the time admission not reveal any evidence of pulmonary emb olus. I performed a complete device interrogation which revealed the known episode of ventricular fibrillation in November of this year. No other arrhythmias recently. Normal device function with longevity estimated 2.2 years. OptiVol in the normal range. Echocardiogram performed today revealed mildly reduced LV systolic function. ECG Additional Comments: EKG demonstrated a paced atrial rhythm with nonspecific interventricular conduction delay. PG Care Time/CCT Total # of Minutes Spent Total Time Spent with Patient: Total time spent is greater than 50% in coordination of care (as documented) at patient's floor/unit and/or counseling patient: Coding Level of Care Code 18412 Inpt Consult Level 4 Diagnoses Exertional dyspnea R06.09 Acute exacerbation of congestive heart failure I50.9 AICD (automatic cardioverter/defibrillator) present Z95.810 Cardiomyopathy I42.9 Mitral regurgitation I34.0
[2021-12-28 18:03] LABS: A calco-baum cmplx NotReported Not Detected (NotDetected); Bact fragilis Not Reported Not Detected (NotDetected); C auris Not Reported Not Detected (NotDetected); Calbicans Not Reported Not Detected (NotDetected); Candida glabrata Not Reported Not Detected (NotDetected); Candida krusei Not Reported Not Detected (NotDetected); Cneoformans/gatti Not Reported Not Detected (NotDetected); Cparapsilosis Not Reported Not Detected (NotDetected); Ctropicalis Not Reported Not Detected (NotDetected); E cloacae compx Not Reported Not Detected (NotDetected); Efaecalis Not Reported Not Detected (NotDetected); Efaecium Not Reported Not Detected (NotDetected); Enterobacterales Not Reported Not Detected (NotDetected); Escherichia coli Not Reported Not Detected (NotDetected); H influenzae Not Reported Not Detected (NotDetected); K aerogenes Not Reported Not Detected (NotDetected); Koxytoca Not Reported Not Detected (NotDetected); Kpneumoniae grp Not Reported Not Detected (NotDetected); Lmonocyt Not Reported Not Detected (NotDetected); N meningitidis Not Reported Not Detected (NotDetected); P aeruginosa Not Reported Not Detected (NotDetected); Proteus spp Not Reported Not Detected (NotDetected); Salmonella spp Not Reported Not Detected (NotDetected); Smarcescens Not Reported Not Detected (NotDetected); Staph lugdunensis Not Reported Not Detected (NotDetected); Staph spp. Not Reported Not Detected (NotDetected); Staphaureus Not Reported Not Detected (NotDetected); Staphepi Not Reported Not Detected (NotDetected); Stenmaltophilia Not Reported Not Detected (NotDetected); Strep agal(GrpB) Not Reported Not Detected (NotDetected); Strep pneum Not Reported Not Detected (NotDetected); Strep pyog (GrpA) Not Reported Not Detected (NotDetected); Strep spp Not Reported Not Detected (NotDetected)
[2021-12-28] MEDS ORDERED: VANCOMYCIN CONSULT ACTIVE PRN (18:50)
--- NOTE | 2021-12-28 19:24 | XRay Report ---
XR chest 1V portable CLINICAL HISTORY: pleural effusions f/u. COMPARISON STUDY: Portable chest from 12/27/2021 and CTA chest from 12/27/2021 TECHNIQUE: 1 view of the chest FINDINGS: Single frontal view of the chest demonstrates the heart to again be enlarged. Very small pleural effu fredy seen on CT are not identified radiographically. There is again evidence for central vascular con gestion. No confluent alveolar opacities are identified . There is no acute osseous pathology. IMPRESSION: 1. Very small pleural effusion seen by CT are not identified radiographically. 2. Cardiomegaly and central vascular congestion are again seen. ACT 112: Negative or not required by law. Electronically signed by: Abdon Art M.D. 12/28/2021 7:23 PM
--- NOTE | 2021-12-28 19:32 | Hospitalist Progress Note ---
Date of Service December 28, 2021 Assessment & Plan (1) Exertional dyspnea: Plan: Lenard Machado is a 56yo male with PMHx significant for non-ischemic cardiomyopathy/chronic HFrEF (last EF 40% in 09/2021), AICD, HTN, morbid obesity (BMI 51.8), COTY/OHS (on CPAP) who presented to [facility] ED on 12/27 for exertional dyspnea and orthopnea x1 week. Gram Positive Bacteremia/?contaminant, source unknown -patient presented hypotensive on arrival, HRs stable; low concern for infection at the time -blood cx PCR neg -blood cx growing gram positive bacilli -cbc, procal, crp, lactate, MRSA nares screen, UA pending -repeat CXR: cardiomegaly and central vascular congestion -started empiric vancomycin Exertional Dyspnea; Hypoxia; Mild acute HFrEF Exertional dyspnea and orthopnea x1 week, with hypoxia to 80% in the ED. BNP only mildly elevated but CTA chest with pulmonary edema - suspect component of mild acute HFrEF, largely due to dietary non-compliance. However patient also reports possible CPAP malfunction and increase in apneic episodes over last several days which suggests that obesity hypoventilation/COTY is also playing a role. - Lasix 40mg IV x1 in ER; diuretics held on admission due to hypotension (see below) - bumex 1mg IV x1 given in am - Echo (12/27): EF 40-45%, moderate LVF, moderate MR, moderate global hypokinesis left ventricle - CXR admission: cardiomegaly and AICD with evidence of CHF and pulm edema - CTA chest: no PE, trace bilateral pleural effusions - BNP mildly elevated - cont. home atorvastatin - 1.5L fluid restriction and 2g sodium restriction - supplemental O2 to maintain SpO2 >90% - strict I/Os, daily weights - consulted Cardiology - appreciate recs -cont. diuresis if able -if no improvement, consider other etiologies including amiodarone toxicity; consider advanced imaging with high resolution CT -consider addition of Jardiance which should not affect BP Mild Hypotension BP 91/60 in the ED, and patient's son reported that his BP was 70s/40s at home when he was having a headache. No reflex tachycardia which suggests that this is more chronic in nature. pressures improved in am but worsened over the day; most likely due to bacteremia - cont. hold home Carvedilol and Losartan Morbid Obesity; Obesity Hypoventilation Syndrome; COTY BMI 51.8. Possible CPAP malfunction may be contributing to dyspnea/hypoxia as stated above. - CPAP HS - supplemental O2 as stated above Ventricular tachycardia -continue home Amiodarone Gout -continue home Allopurinol DVT ppx: lovenox FEN/GI: HH, 2g salt restriction, 1.5L fluid restriction Code Status: full Dispo: med tele (2) Hypotension: (3) Hypoxia: (4) Acute exacerbation of congestive heart failure: (5) Restrictive lung disease: (6) Sleep apnea: (7) Cardiomyopathy: (8) Morbid obesity: (9) Obstructive sleep apnea of adult: (10) AICD (automatic cardioverter/defibrillator) present: Admission and Anticipated Discharge Date Admission Date: December 27, 2021 Supervising Physician Co-Signing Physician Notes Resident Physician Supervision Note: I independently interviewed and examined the patient and verified the melendez history and physical, reviewed labs and image studies and agree with resident Dr. Escobar findings and care plan. Subjective Patient seen at bedside this morning. Feels better than on admission. Says his diet has been poor over the last couple of weeks. He can feel fluid in his chest. Complains of this lightheadedness and headache which is his typical even when he gets increased fluid in his chest. Some dyspnea, better on O2. Denies chest pain, abdominal pain. Review of Systems Review of Systems: All systems reviewed & are unremarkable except as noted in HPI & below Physical Exam Physical Exam: General: AOx3. NAD. Cooperative. HEENT: Atraumatic, normocephalic. Pulm: Diminished lung sounds bilaterally. No wheezes, rales, or rhonchi. Sy mmetrical chest rise. No increase work of breathing. No respiratory distress. Cardiac: RRR, no murmurs. Radial pulses intact and symmetrical. 1+ pretibial and pedal edema. Abdominal: soft, non-tender, non-distended, BS x 4 Skin: warm, dry, no rash Results & Data Results & Data ([facility]) Vital Signs (Past 12 Hours) Vital Signs Temp Pulse Pulse Resp BP Pulse Ox 12/28/21 16:00 74 12/28/21 15:55 36.7 C 71 18 87/48 L 96 12/28/21 12:08 36.7 C 76 18 143/78 H 94 12/28/21 08:02 36.8 C 72 20 115/69 94 Laboratory Results 12/28/21 12/28/21 12/28/21 Range/Units 05:44 05:44 05:44 WBC 8.56 (4.8-10.8) K/ul RBC 3.42 L (4.63-6.08) M/uL Hgb 10.3 L (14.0-18.0) g/dl Hct 32.1 L (40.1-51.0) % MCV 93.9 (80.0-100.0) fL MCH 30.1 (25.0-34.0) pg MCHC 32.1 (32.0-36.0) g/dL RDW Std Deviation 63.2 H (36.4-46.3) fL RDW Coeff of Kylee 18.7 H (11.5-14.5) % Plt Count 177 (130-400) K/uL MPV 9.5 (9.4-12.4) fL Immature Gran % (Auto) 0.6 % Neut % (Auto) 78.4 % Lymph % (Auto) 11.3 % [facility] % (Auto) 6.9 % Eos % (Auto) 2.2 % Baso % (Auto) 0.6 % Neut # (Auto) 6.71 H (1.4-6.5) K/uL Lymph # (Auto) 0.97 L (1.2-3.4) K/uL [facility] # (Auto) 0.59 (0.24-0.82) K/uL Eos # (Auto) 0.19 (0-0.50) K/uL Baso # (Auto) 0.05 (0-0.2) K/uL Immature Gran # (Auto) 0.05 H (0.00-0.02) K/uL Absolute Nucleated RBC 0.02 H (0-0) K/uL Nucleated RBC % (auto) 0.2 % PT (9.0-12.0) Seconds INR (0.9-1.1) APTT (21.0-31.0) Seconds PTT Ratio D-Dimer (0-500) ug/L FEU Sodium 141 (136-145) mmol/L Potassium 4.0 (3.5-5.1) mmol/L Chloride 105 (98-107) mmol/L Carbon Dioxide 30 (21-32) mmol/L Anion Gap 6 (3-11) BUN 24 H (6-23) mg/dl Creatinine 1.20 (0.6-1.4) mg/dl Est Cr Clr Drug Dosing 106.1 ml/min Est GFR ( Amer) 78.4 ml/min Est GFR (Non-Af Amer) 67.7 ml/min BUN/Creatinine Ratio 20.0 (10-20) Glucose 151 H (70-99(Fasting)) mg/dl Estimat Average Glucose 123 mg/dl Hemoglobin A1c 5.9 H (4.5-5.6) % Calcium 9.1 (8.5-10.1) mg/dl Magnesium 1.7 (1.7-2.4) mg/dl Total Bilirubin (0.2-1.0) mg/dl AST (13-39) U/L ALT (7-52) U/L Alkaline Phosphatase (34-104) U/L Troponin I High Sens (0-20) pg/ml B-Natriuretic Peptide (0-100) pg/ml Total Protein (6.0-8.3) gm/dl Albumin (3.4-5.0) gm/dl Globulin (2.5-4.0) gm/dl Albumin/Globulin Ratio (0.9-2) SARS-CoV-2, RNA, NAAT (NEGATIVE) Bld Cult ID Panel PCR (NotDetected) 12/27/21 12/27/21 12/27/21 Range/Units 20:34 20:34 19:54 WBC (4.8-10.8) K/ul RBC (4.63-6.08) M/uL Hgb (14.0-18.0) g/dl Hct (40.1-51.0) % MCV (80.0-100.0) fL MCH (25.0-34.0) pg MCHC (32.0-36.0) g/dL RDW Std Deviation (36.4-46.3) fL RDW Coeff of Kylee (11.5-14.5) % Plt Count (130-400) K/uL MPV (9.4-12.4) fL Immature Gran % (Auto) % Neut % (Auto) % Lymph % (Auto) % [facility] % (Auto) % Eos % (Auto) % Baso % (Auto) % Neut # (Auto) (1.4-6.5) K/uL Lymph # (Auto) (1.2-3.4) K/uL [facility] # (Auto) (0.24-0.82) K/uL Eos # (Auto) (0-0.50) K/uL Baso # (Auto) (0-0.2) K/uL Immature Gran # (Auto) (0.00-0.02) K/uL Absolute Nucleated RBC (0-0) K/uL Nucleated RBC % (auto) % PT (9.0-12.0) Seconds INR (0.9-1.1) APTT (21.0-31.0) Seconds PTT Ratio D-Dimer (0-500) ug/L FEU Sodium (136-145) mmol/L Potassium (3.5-5.1) mmol/L Chloride (98-107) mmol/L Carbon Dioxide (21-32) mmol/L Anion Gap (3-11) BUN (6-23) mg/dl Creatinine (0.6-1.4) mg/dl Est Cr Clr Drug Dosing ml/min Est GFR ( Amer) ml/min Est GFR (Non-Af Amer) ml/min BUN/Creatinine Ratio (10-20) Glucose (70-99(Fasting)) mg/dl Estimat Average Glucose mg/dl Hemoglobin A1c (4.5-5.6) % Calcium (8.5-10.1) mg/dl Magnesium (1.7-2.4) mg/dl Total Bilirubin (0.2-1.0) mg/dl AST (13-39) U/L ALT (7-52) U/L Alkaline Phosphatase (34-104) U/L Troponin I High Sens (0-20) pg/ml B-Natriuretic Peptide 119 H (0-100) pg/ml Total Protein (6.0-8.3) gm/dl Albumin (3.4-5.0) gm/dl Globulin (2.5-4.0) gm/dl Albumin/Globulin Ratio (0.9-2) SARS-CoV-2, RNA, NAAT NEGATIVE (NEGATIVE) Bld Cult ID Panel PCR PCR Panel Negative (NotDetected) 07/11/22 07/11/22 07/11/22 Range/Units 19:25 19:25 19:25 WBC 8.43 (4.8-10.8) K/ul RBC 3.71 L (4.63-6.08) M/uL Hgb 11.3 L (14.0-18.0) g/dl Hct 34.3 L (40.1-51.0) % MCV 92.5 (80.0-100.0) fL MCH 30.5 (25.0-34.0) pg MCHC 32.9 (32.0-36.0) g/dL RDW Std Deviation 60.8 H (36.4-46.3) fL RDW Coeff of Kylee 18.5 H (11.5-14.5) % Plt Count 211 (130-400) K/uL MPV 9.9 (9.4-12.4) fL Immature Gran % (Auto) 0.5 % Neut % (Auto) 79.2 % Lymph % (Auto) 10.9 % [facility] % (Auto) 7.0 % Eos % (Auto) 1.8 % Baso % (Auto) 0.6 % Neut # (Auto) 6.68 H (1.4-6.5) K/uL Lymph # (Auto) 0.92 L (1.2-3.4) K/uL [facility] # (Auto) 0.59 (0.24-0.82) K/uL Eos # (Auto) 0.15 (0-0.50) K/uL Baso # (Auto) 0.05 (0-0.2) K/uL Immature Gran # (Auto) 0.04 H (0.00-0.02) K/uL Absolute Nucleated RBC 0.03 H (0-0) K/uL Nucleated RBC % (auto) 0.4 % PT 11.5 (9.0-12.0) Seconds INR 1.1 (0.9-1.1) APTT 27.9 (21.0-31.0) Seconds PTT Ratio 1.0 D-Dimer 1000 H* (0-500) ug/L FEU Sodium 140 (136-145) mmol/L Potassium 3.9 (3.5-5.1) mmol/L Chloride 106 (98-107) mmol/L Carbon Dioxide 26 (21-32) mmol/L Anion Gap 8 (3-11) BUN 26 H (6-23) mg/dl Creatinine 1.16 (0.6-1.4) mg/dl Est Cr Clr Drug Dosing 107.9 ml/min Est GFR ( Amer) 81.7 ml/min Est GFR (Non-Af Amer) 70.5 ml/min BUN/Creatinine Ratio 22.4 H (10-20) Glucose 146 H (70-99(Fasting)) mg/dl Estimat Average Glucose mg/dl Hemoglobin A1c (4.5-5.6) % Calcium 9.5 (8.5-10.1) mg/dl Magnesium (1.7-2.4) mg/dl Total Bilirubin 2.6 H (0.2-1.0) mg/dl AST 17 (13-39) U/L ALT 16 (7-52) U/L Alkaline Phosphatase 71 (34-104) U/L Troponin I High Sens 19.5 (0-20) pg/ml B-Natriuretic Peptide (0-100) pg/ml Total Protein 7.2 (6.0-8.3) gm/dl Albumin 4.2 (3.4-5.0) gm/dl Globulin 3.0 (2.5-4.0) gm/dl Albumin/Globulin Ratio 1.4 (0.9-2) SARS-CoV-2, RNA, NAAT (NEGATIVE) Bld Cult ID Panel PCR (NotDetected) Resident Activity Tracking Resident Involvement: Resident Care Provided Care Provided: Adult Hospital Medicine
[2021-12-28] MEDS ORDERED: LACTATED RINGER'S 1,000 ML IV SCH (20:00)
[2021-12-28 20:08] LABS: Basophils # (auto) 0.06 K/uL (0-0.2); Basophils % (auto) 0.7 %; Eosinophils # (auto) 0.15 K/uL (0-0.50); Eosinophils % (auto) 1.7 %; Hematocrit (blood only) 34.7 % (40.1-51.0); Hemoglobin 11.4 g/dl (14.0-18.0); Immature Granulocytes # (auto) 0.03 K/uL (0.00-0.02); Immature Granulocytes % (auto) 0.3 %; Lymphocytes # (auto) 0.83 K/uL (1.2-3.4); Lymphocytes % (auto) 9.6 %; Mean Corpuscular Hemoglobin 30.6 pg (25.0-34.0); Mean Corpuscular Hgb Conc 32.9 g/dL (32.0-36.0); Mean Corpuscular Volume 93.3 fL (80.0-100.0); Mean Platelet Volume 9.8 fL (9.4-12.4); Monocytes # (auto) 0.47 K/uL (0.24-0.82); Monocytes % (auto) 5.5 %; Neutrophils # (auto) 7.07 K/uL (1.4-6.5); Neutrophils % (auto) 82.2 %; Platelet Count 209 K/uL (130-400); RDW Coefficient of Variation 18.5 % (11.5-14.5); RDW Standard Deviation 61.8 fL (36.4-46.3); Red Blood Count 3.72 M/uL (4.63-6.08); White Blood Count 8.61 K/ul (4.8-10.8)
[2021-12-28] MEDS ORDERED: VANCOMYCIN HCL 2,750 MG in SODIUM CHLORIDE 0.9% 500 ML IV ONE (20:20)
[2021-12-28 20:24] LABS: Appearance Urine Clear (Clear); Bilirubin Urine Negative (Negative); Blood Urine Negative (Negative); Color Urine Yellow; Glucose Urine UA Negative (Negative); Ketones Urine Trace (Negative); Leukocyte Esterase Urine Negative (Negative); Nitrite Urine Negative (Negative); Protein Urine Negative (Negative); Urobilinogen Urine Negative (Negative); pH Urine 5.5 (4.5-7.5)
[2021-12-28] MEDS ORDERED: carvediloL 25 MG TAB PO SCH (21:00)
[2021-12-28] MEDS: ATORVASTATIN 40 MG TAB PO SCH (21:36)
--- NOTE | 2021-12-28 21:50 | Pharmacy Report ---
Pharmacy PK ABX Note - Date of Service December 28, 2021 - Assessment and Plan Assessment 56 year old M admitted with exertional dyspnea, hypoxia and hypotension. Gram positive bacilli growing in 1 of 4 BC (aerobic bottle) , MRSA Nasal Swab pending Vancomycin initiated for coverage of possible bacteremia - ordered x 48 hours only BMI = 53.3. Patient at high risk of vancomycin accumulation. Discussed with provider. Would like to keep vanco until lung source ruled out. Plan Vancomycin * Loading dose: 2750 mg x 1 * Maintenance dose: 1250 mg IV every 12 hours * Regimen is predicted to achieve target AUC/MARSHA of 400-600 mg/L.hr * Level will be ordered if vanco is continued beyond 48 hours. Pharmacy will continue to follow and will adjust dose/frequency as necessary. Thank you. Pharmacy has transitioned to AUC monitoring for vancomycin. AUC/MARSHA is the preferred PK/PD target and is associated with decreased risk of nephrotoxicity compared to traditional trough targets.
--- NOTE | 2021-12-29 01:55 | Billing Data ---
Date of Service December 29, 2021 Coding Level of Care Code 75527 Initial Inpt Care Lvl 3
[2021-12-29] MEDS ORDERED: VANCOMYCIN HCL 1,250 MG in SODIUM CHLORIDE 0.9% 250 ML IV SCH (06:00)
[2021-12-29] MEDS: ENOXAPARIN INJ 40 MG/0.4 ML SYR SQ SCH ×2 (06:12→17:42)
[2021-12-29 07:06] LABS: Basophils # (auto) 0.03 K/uL (0-0.2); Basophils % (auto) 0.4 %; Eosinophils # (auto) 0.15 K/uL (0-0.50); Eosinophils % (auto) 2.2 %; Hematocrit (blood only) 30.2 % (40.1-51.0); Hemoglobin 9.7 g/dl (14.0-18.0); Immature Granulocytes # (auto) 0.03 K/uL (0.00-0.02); Immature Granulocytes % (auto) 0.4 %; Lymphocytes # (auto) 0.82 K/uL (1.2-3.4); Lymphocytes % (auto) 11.9 %; Mean Corpuscular Hemoglobin 30.6 pg (25.0-34.0); Mean Corpuscular Hgb Conc 32.1 g/dL (32.0-36.0); Mean Corpuscular Volume 95.3 fL (80.0-100.0); Mean Platelet Volume 9.1 fL (9.4-12.4); Monocytes # (auto) 0.62 K/uL (0.24-0.82); Neutrophils # (auto) 5.26 K/uL (1.4-6.5); Neutrophils % (auto) 76.1 %; Platelet Count 145 K/uL (130-400); RDW Coefficient of Variation 18.4 % (11.5-14.5); RDW Standard Deviation 63.1 fL (36.4-46.3); Red Blood Count 3.17 M/uL (4.63-6.08); White Blood Count 6.91 K/ul (4.8-10.8)
[2021-12-29 07:26] LABS: Albumin Globulin Ratio 1.5 (0.9-2); Albumin Level 3.9 gm/dl (3.4-5.0); BUN Creatinine Ratio 21.1 (10-20); Bilirubin,Total 3.2 mg/dl (0.2-1.0); Calcium 8.9 mg/dl (8.5-10.1); Creatinine Clr Calc Pharmacy 109.6 ml/min; Est GFR (African American) 83.4 ml/min; Globulin 2.6 gm/dl (2.5-4.0); Total Protein 6.5 gm/dl (6.0-8.3)
[2021-12-29] MEDS: POTASSIUM CHLORIDE CRTAB 20 MEQ TABCR PO SCH ×3 (07:45→17:41)
[2021-12-29] MEDS: ceFAZolin 2000MG 2,000 MG/15 ML SYR IV SCH ×2 (07:45→15:28)
[2021-12-29] MEDS: AMIODARONE 200 MG TAB PO SCH (08:03)
[2021-12-29] MEDS: allopurinoL 300 MG TAB PO SCH (08:03)
[2021-12-29] MEDS: CHOLECALCIFEROL 1,000 UNITS 25 MCG TAB PO SCH (08:04)
[2021-12-29] MEDS: OMEGA-3 (PURIFIED FISH OIL) 1 GM CAP PO SCH (08:04)
--- NOTE | 2021-12-29 09:46 | Hospitalist Progress Note ---
Date of Service December 29, 2021 Assessment & Plan (1) Exertional dyspnea: Plan: Lenard Mcahado is a 56yo male with PMHx significant for non-ischemic cardiomyopathy/chronic HFrEF (last EF 40% in 09/2021), AICD, HTN, morbid obesity (BMI 51.8), COTY/OHS (on CPAP) who presented to [facility] ED on 12/27 for exertional dyspnea and orthopnea x1 week. Gram Positive Bacteremia/?contaminant, source unknown -patient presented hypotensive on arrival, HRs stable; low concern for infection at the time -blood cx PCR neg -blood cx growing bacillus species not anthracic; repeat cx pending -MRSA nares screen neg -UA neg -procal, lactate wnl -repeat CXR (12/28): cardiomegaly and central vascular congestion -cont. vancomycin, await repeat blood cx Exertional Dyspnea; Hypoxia; Mild acute HFrEF Exertional dyspnea and orthopnea x1 week, with hypoxia to 80% in the ED. BNP only mildly elevated but CTA chest with pulmonary edema - suspect component of mild acute HFrEF, largely due to dietary non-compliance. However patient also reports possible CPAP malfunction and increase in apneic episodes over last several days which suggests that obesity hypoventilation/COTY is also playing a role. - Lasix 40mg IV x1 in ER; diuretics held on admission due to hypotension (see below) - bumex 1mg IV x1 given (12/28) but held again afterwards due to hypotension - Echo (12/27): EF 40-45%, moderate LVF, moderate MR, moderate global hypokinesis left ventricle - CXR admission: cardiomegaly and AICD with evidence of CHF and pulm edema - CTA chest: no PE, trace bilateral pleural effusions - BNP mildly elevated - cont. home atorvastatin - 1.5L fluid restriction and 2g sodium restriction - supplemental O2 to maintain SpO2 >90% - strict I/Os, daily weights - consulted Cardiology - appreciate recs -cont. diuresis if able -if no improvement, consider other etiologies including amiodarone toxicity; consider advanced imaging with high resolution CT -consider addition of Jardiance which should not affect BP -Bumex 1mg IV in am if BP allows Mild Hypotension BP 91/60 in the ED, and patient's son reported that his BP was 70s/40s at home when he was having a headache. No reflex tachycardia which suggests that this is more chronic in nature. - possibly due to potential bacteremia - BP improving while on abx - cont. hold home Carvedilol and Losartan Morbid Obesity; Obesity Hypoventilation Syndrome; COTY BMI 51.8. Possible CPAP malfunction may be contributing to dyspnea/hypoxia as stated above. - CPAP HS - supplemental O2 as stated above Ventricular tachycardia -continue home Amiodarone Gout -continue home Allopurinol DVT ppx: lovenox FEN/GI: HH, 2g salt restriction, 1.5L fluid restriction Code Status: full Dispo: med tele (2) Hypotension: (3) Hypoxia: (4) Acute exacerbation of congestive heart failure: (5) Restrictive lung disease: (6) Sleep apnea: (7) Cardiomyopathy: (8) Morbid obesity: (9) Obstructive sleep apnea of adult: (10) AICD (automatic cardioverter/defibrillator) present: Admission and Anticipated Discharge Date Admission Date: December 27, 2021 Supervising Physician Co-Signing Physician Notes Patient seen and examined with PGY-2 Dr. Escobar. Agree with history, exam findings, assessment and plan of care as outlined. In brief, Mr. Machado is a 56 year old male with PMHx significant for non- ischemic cardiomyopathy/chronic HFrEF (last EF 40% in 09/2021), AICD, HTN, morbid obesity (BMI 51.8), COTY/OHS (on CPAP) who presented to [facility] ED on 12/27 for exertional dyspnea and orthopnea x1 week. Feels breathing is improving, but even minimal exertion like walking to the bathroom leaves him short of breath. Does not typically get short of breath walking short distances. Does have his CPAP form home and this is very helpful for sleep. Does note that he does have edema in the legs, but he has also been sitting with his legs dangling nearly all day. At baseline, is not able to lie flat on his back to sleep but does feel this has been a bit more uncomfortable lately. VS and nursing notes reviewed. Heart with regular rate and rhythm. Trace edema in the bilateral lower extremities. Lungs are clear throughout. No crackles or wheezes. No accessory muscle use. Labs and imaging reviewed. 1. Exertional dyspnea, hypoxia, mild acute HFrEF. CTA with pulmonary edema, BNP minimally elevated. Suspect dietary non-adherence playing a role + malfunction of CPAP. Bumex dose in the morning if blood pressures are reasonable. Fluid restriction to 1.5L, 2g Na restriction. Appreciate cardiology recommendations. 2. Hypotension. Holding home coreg and losartan. Consider reduction in home doses for the future. 3. Morbid obesity, obesity hypoventilation syndrome, COTY. BMI 51.8. CPAP malfunction at home. 4. Vtach. Continue home amiodarone 5. Positive blood culture. Currently 1/2 bottles growing Bacillus species. Was on Ancef. Consider vanc to cover in the event this is not just contaminant. Repeat cultures pending. Dispo: pending clinical improvement. Subjective Patient seen at bedside this morning. Feels similar to yesterday but better than on admission. He can feel fluid in his chest. Some dyspnea, better on O2. States he would not be able to walk long distances without oxygen support at this time. Denies chest pain, abdominal pain, AARON, N/V, lightheadedness, dizziness. Review of Systems Review of Systems: All systems reviewed & are unremarkable except as noted in HPI & below Physical Exam Physical Exam: General: AOx3. NAD. Cooperative. Morbidly obese. HEENT: Atraumatic, normocephalic. Pulm: Diminished lung sounds bilaterally. No wheezes, rales, or rhonchi appreciated. Symmetrical chest rise. No increase work of breathing. No respiratory distress. Cardiac: RRR, no murmurs. Radial pulses intact and symmetrical. 1+ pretibial and pedal edema. Abdominal: soft, nontender, nondistended, +BS Skin: warm, dry, no rash Results & Data Results & Data ([facility]) Vital Signs (Past 12 Hours) Vital Signs Temp Pulse Pulse Resp BP Pulse Ox O2 Del Method 12/29/21 08:55 70 12/29/21 07:18 36.4 C L 73 24 95/59 L 97 CPAP 12/29/21 05:25 70 16 101/64 97 12/28/21 23:11 68 15 95/62 L 94 12/28/21 23:04 70 12/28/21 22:53 Nasal Cannula O2 Flow Rate 12/29/21 08:55 12/29/21 07:18 12/29/21 05:25 12/28/21 23:11 12/28/21 23:04 12/28/21 22:53 2 Laboratory Results 12/29/21 12/29/21 12/28/21 Range/Units 06:47 06:47 20:05 WBC 6.91 (4.8-10.8) K/ul RBC 3.17 L (4.63-6.08) M/uL Hgb 9.7 L (14.0-18.0) g/dl Hct 30.2 L (40.1-51.0) % MCV 95.3 (80.0-100.0) fL MCH 30.6 (25.0-34.0) pg MCHC 32.1 (32.0-36.0) g/dL RDW Std Deviation 63.1 H (36.4-46.3) fL RDW Coeff of Kylee 18.4 H (11.5-14.5) % Plt Count 145 (130-400) K/uL MPV 9.1 L (9.4-12.4) fL Immature Gran % (Auto) 0.4 % Neut % (Auto) 76.1 % Lymph % (Auto) 11.9 % [place] % (Auto) 9.0 % Eos % (Auto) 2.2 % Baso % (Auto) 0.4 % Neut # (Auto) 5.26 (1.4-6.5) K/uL Lymph # (Auto) 0.82 L (1.2-3.4) K/uL [place] # (Auto) 0.62 (0.24-0.82) K/uL Eos # (Auto) 0.15 (0-0.50) K/uL Baso # (Auto) 0.03 (0-0.2) K/uL Immature Gran # (Auto) 0.03 H (0.00-0.02) K/uL Sodium 141 (136-145) mmol/L Potassium 4.0 (3.5-5.1) mmol/L Chloride 108 H (98-107) mmol/L Carbon Dioxide 30 (21-32) mmol/L Anion Gap 3 (3-11) BUN 24 H (6-23) mg/dl Creatinine 1.14 (0.6-1.4) mg/dl Est Cr Clr Drug Dosing 109.6 ml/min Est GFR ( Amer) 83.4 ml/min Est GFR (Non-Af Amer) 72.0 ml/min BUN/Creatinine Ratio 21.1 H (10-20) Glucose 142 H (70-99(Fasting)) mg/dl Lactate (0.4-2.0) mmol/L Calcium 8.9 (8.5-10.1) mg/dl Total Bilirubin 3.2 H (0.2-1.0) mg/dl AST 16 (13-39) U/L ALT 12 (7-52) U/L Alkaline Phosphatase 62 (34-104) U/L C-Reactive Protein (0-0.5) mg/dl Total Protein 6.5 (6.0-8.3) gm/dl Albumin 3.9 (3.4-5.0) gm/dl Globulin 2.6 (2.5-4.0) gm/dl Albumin/Globulin Ratio 1.5 (0.9-2) Procalcitonin (0-0.5) ng/ml Urine Color Yellow Urine Appearance Clear (Clear) Urine pH 5.5 (4.5-7.5) Ur Specific [place] 1.020 (1.000-1.030) Urine Protein Negative (Negative) Urine Glucose (UA) Negative (Negative) Urine Ketones Trace H (Negative) Urine Blood Negative (Negative) Urine Nitrite Negative (Negative) Urine Bilirubin Negative (Negative) Urine Urobilinogen Negative (Negative) Ur Leukocyte Esterase Negative (Negative) Nasal Screen MRSA (PCR) (Negative) 12/28/21 12/28/21 12/28/21 Range/Units 19:58 19:58 19:58 WBC (4.8-10.8) K/ul RBC (4.63-6.08) M/uL Hgb (14.0-18.0) g/dl Hct (40.1-51.0) % MCV (80.0-100.0) fL MCH (25.0-34.0) pg MCHC (32.0-36.0) g/dL RDW Std Deviation (36.4-46.3) fL RDW Coeff of Kylee (11.5-14.5) % Plt Count (130-400) K/uL MPV (9.4-12.4) fL Immature Gran % (Auto) % Neut % (Auto) % Lymph % (Auto) % [place] % (Auto) % Eos % (Auto) % Baso % (Auto) % Neut # (Auto) (1.4-6.5) K/uL Lymph # (Auto) (1.2-3.4) K/uL [place] # (Auto) (0.24-0.82) K/uL Eos # (Auto) (0-0.50) K/uL Baso # (Auto) (0-0.2) K/uL Immature Gran # (Auto) (0.00-0.02) K/uL Sodium (136-145) mmol/L Potassium (3.5-5.1) mmol/L Chloride (98-107) mmol/L Carbon Dioxide (21-32) mmol/L Anion Gap (3-11) BUN (6-23) mg/dl Creatinine (0.6-1.4) mg/dl Est Cr Clr Drug Dosing ml/min Est GFR ( Amer) ml/min Est GFR (Non-Af Amer) ml/min BUN/Creatinine Ratio (10-20) Glucose (70-99(Fasting)) mg/dl Lactate 1.2 (0.4-2.0) mmol/L Calcium (8.5-10.1) mg/dl Total Bilirubin (0.2-1.0) mg/dl AST (13-39) U/L ALT (7-52) U/L Alkaline Phosphatase (34-104) U/L C-Reactive Protein 1.65 H (0-0.5) mg/dl Total Protein (6.0-8.3) gm/dl Albumin (3.4-5.0) gm/dl Globulin (2.5-4.0) gm/dl Albumin/Globulin Ratio (0.9-2) Procalcitonin < 0.05 (0-0.5) ng/ml Urine Color Urine Appearance (Clear) Urine pH (4.5-7.5) Ur Specific [place] (1.000-1.030) Urine Protein (Negative) Urine Glucose (UA) (Negative) Urine Ketones (Negative) Urine Blood (Negative) Urine Nitrite (Negative) Urine Bilirubin (Negative) Urine Urobilinogen (Negative) Ur Leukocyte Esterase (Negative) Nasal Screen MRSA (PCR) (Negative) 12/28/21 12/28/21 Range/Units 19:58 19:45 WBC 8.61 (4.8-10.8) K/ul RBC 3.72 L (4.63-6.08) M/uL Hgb 11.4 L (14.0-18.0) g/dl Hct 34.7 L (40.1-51.0) % MCV 93.3 (80.0-100.0) fL MCH 30.6 (25.0-34.0) pg MCHC 32.9 (32.0-36.0) g/dL RDW Std Deviation 61.8 H (36.4-46.3) fL RDW Coeff of Kylee 18.5 H (11.5-14.5) % Plt Count 209 (130-400) K/uL MPV 9.8 (9.4-12.4) fL Immature Gran % (Auto) 0.3 % Neut % (Auto) 82.2 % Lymph % (Auto) 9.6 % [place] % (Auto) 5.5 % Eos % (Auto) 1.7 % Baso % (Auto) 0.7 % Neut # (Auto) 7.07 H (1.4-6.5) K/uL Lymph # (Auto) 0.83 L (1.2-3.4) K/uL [place] # (Auto) 0.47 (0.24-0.82) K/uL Eos # (Auto) 0.15 (0-0.50) K/uL Baso # (Auto) 0.06 (0-0.2) K/uL Immature Gran # (Auto) 0.03 H (0.00-0.02) K/uL Sodium (136-145) mmol/L Potassium (3.5-5.1) mmol/L Chloride (98-107) mmol/L Carbon Dioxide (21-32) mmol/L Anion Gap (3-11) BUN (6-23) mg/dl Creatinine (0.6-1.4) mg/dl Est Cr Clr Drug Dosing ml/min Est GFR ( Amer) ml/min Est GFR (Non-Af Amer) ml/min BUN/Creatinine Ratio (10-20) Glucose (70-99(Fasting)) mg/dl Lactate (0.4-2.0) mmol/L Calcium (8.5-10.1) mg/dl Total Bilirubin (0.2-1.0) mg/dl AST (13-39) U/L ALT (7-52) U/L Alkaline Phosphatase (34-104) U/L C-Reactive Protein (0-0.5) mg/dl Total Protein (6.0-8.3) gm/dl Albumin (3.4-5.0) gm/dl Globulin (2.5-4.0) gm/dl Albumin/Globulin Ratio (0.9-2) Procalcitonin (0-0.5) ng/ml Urine Color Urine Appearance (Clear) Urine pH (4.5-7.5) Ur Specific [place] (1.000-1.030) Urine Protein (Negative) Urine Glucose (UA) (Negative) Urine Ketones (Negative) Urine Blood (Negative) Urine Nitrite (Negative) Urine Bilirubin (Negative) Urine Urobilinogen (Negative) Ur Leukocyte Esterase (Negative) Nasal Screen MRSA (PCR) Negative (Negative) Resident Activity Tracking Resident Involvement: Resident Care Provided Care Provided: Adult Hospital Medicine
--- NOTE | 2021-12-29 14:17 | Cardiology Progress Note ---
Date of Service December 29, 2021 Assessment & Plan (1) Exertional dyspnea: (2) Acute exacerbation of congestive heart failure: (3) AICD (automatic cardioverter/defibrillator) present: (4) Cardiomyopathy: (5) Mitral regurgitation: Plan 1. Dyspnea: He continues to have an element of dyspnea. He seemed to affect some diuresis yesterday with a single dose of bumetanide. No additional diuretic was given today over concerns of hypotension. 2. Cardiomyopathy: Nonischemic. Overall function appears improved versus prior evaluations. However, his medical therapy has been discontinued over concerns of hypotension. 3. Ventricular fibrillation: He did have a an appropriate device therapy in early November. Does recall syncope associated with that episode. He had discontinued his amiodarone at that time. No arrhythmias since November. Continue amiodarone 4. Mitral regurgitation 5. Normally functioning dual-chamber ICD It is unclear to me if his hypotension is related to the recently discovered bacteremia. I would advocate reinstitution of his medical therapy at the [facility]. This would include carvedilol possibly at a lower dose. I would also advocate attempt at diuresis given his presentation with dyspnea and mild pulmonary edema. Limiting fluids and infusions will also be helpful in this regard. Admission and Anticipated Discharge Date Admission Date: December 27, 2021 Subjective This afternoon the patient reports continued shortness of breath going to the bathroom. Occasional dizziness which seems to be slightly improved. No chest pain. No discomfort in the lower extremities. Review of Systems Review of Systems: Per HPI Physical Exam Physical Exam: The patient is alert and oriented. Mood and affect appeared normal. He answered all questions appropriately. Obese HEENT: Pupils are equal and reactive to light and accommodation. Extraocular movements are intact. The sclerae are anicteric. Neuro: Cranial nerves intact Lungs: Some crackles at the bases bilaterally. Normal respiratory effort. Distant breath sounds overall. Cardiac: Heart demonstrates a regular rate and rhythm. Normal S1 and S2. No murmurs on examination. Pulses: The patient has palpable radial pulses bilaterally that are equal in intensity Extremities: There was no evidence of hypoperfusion. There is no cyanosis or clubbing. Trophic changes in lower extremities with moderate peripheral edema. Erythema on the right anterior tibial area Skin: I did not appreciate any rashes on examination today. Results & Data ([facility]) Vital Signs (Past 12 Hours) Vital Signs Temp Pulse Pulse Resp BP Pulse Ox O2 Del Method 12/29/21 11:55 36.7 C 72 19 106/54 L 95 12/29/21 09:00 Nasal Cannula 12/29/21 08:55 70 12/29/21 07:18 36.4 C L 73 24 95/59 L 97 CPAP 12/29/21 05:25 70 16 101/64 97 O2 Flow Rate 12/29/21 11:55 12/29/21 09:00 2 12/29/21 08:55 12/29/21 07:18 12/29/21 05:25 Laboratory Results Abnormal Lab Results 12/27/21 12/28/21 12/28/21 20:34 19:45 19:58 WBC 8.61 RBC 3.72 L Hgb 11.4 L Hct 34.7 L MCV 93.3 MCH 30.6 MCHC 32.9 RDW Std Deviation 61.8 H RDW Coeff of Kylee 18.5 H Plt Count 209 MPV 9.8 Immature Gran % (Auto) 0.3 Neut % (Auto) 82.2 Lymph % (Auto) 9.6 [place] % (Auto) 5.5 Eos % (Auto) 1.7 Baso % (Auto) 0.7 Neut # (Auto) 7.07 H Lymph # (Auto) 0.83 L [place] # (Auto) 0.47 Eos # (Auto) 0.15 Baso # (Auto) 0.06 Immature Gran # (Auto) 0.03 H Sodium Potassium Chloride Carbon Dioxide Anion Gap BUN Creatinine Est Cr Clr Drug Dosing Est GFR ( Amer) Est GFR (Non-Af Amer) BUN/Creatinine Ratio Glucose Lactate Calcium Total Bilirubin AST ALT Alkaline Phosphatase C-Reactive Protein Total Protein Albumin Globulin Albumin/Globulin Ratio Procalcitonin Urine Color Urine Appearance Urine pH Ur Specific [place] Urine Protein Urine Glucose (UA) Urine Ketones Urine Blood Urine Nitrite Urine Bilirubin Urine Urobilinogen Ur Leukocyte Esterase Nasal Screen MRSA (PCR) Negative Bld Cult ID Panel PCR PCR Panel Negative 12/28/21 12/28/21 12/28/21 19:58 19:58 19:58 WBC RBC Hgb Hct MCV MCH MCHC RDW Std Deviation RDW Coeff of Kylee Plt Count MPV Immature Gran % (Auto) Neut % (Auto) Lymph % (Auto) [place] % (Auto) Eos % (Auto) Baso % (Auto) Neut # (Auto) Lymph # (Auto) [place] # (Auto) Eos # (Auto) Baso # (Auto) Immature Gran # (Auto) Sodium Potassium Chloride Carbon Dioxide Anion Gap BUN Creatinine Est Cr Clr Drug Dosing Est GFR ( Amer) Est GFR (Non-Af Amer) BUN/Creatinine Ratio Glucose Lactate 1.2 Calcium Total Bilirubin AST ALT Alkaline Phosphatase C-Reactive Protein 1.65 H Total Protein Albumin Globulin Albumin/Globulin Ratio Procalcitonin < 0.05 Urine Color Urine Appearance Urine pH Ur Specific [place] Urine Protein Urine Glucose (UA) Urine Ketones Urine Blood Urine Nitrite Urine Bilirubin Urine Urobilinogen Ur Leukocyte Esterase Nasal Screen MRSA (PCR) Bld Cult ID Panel PCR 12/28/21 12/29/21 12/29/21 20:05 06:47 06:47 WBC 6.91 RBC 3.17 L Hgb 9.7 L Hct 30.2 L MCV 95.3 MCH 30.6 MCHC 32.1 RDW Std Deviation 63.1 H RDW Coeff of Kylee 18.4 H Plt Count 145 MPV 9.1 L Immature Gran % (Auto) 0.4 Neut % (Auto) 76.1 Lymph % (Auto) 11.9 [place] % (Auto) 9.0 Eos % (Auto) 2.2 Baso % (Auto) 0.4 Neut # (Auto) 5.26 Lymph # (Auto) 0.82 L [place] # (Auto) 0.62 Eos # (Auto) 0.15 Baso # (Auto) 0.03 Immature Gran # (Auto) 0.03 H Sodium 141 Potassium 4.0 Chloride 108 H Carbon Dioxide 30 Anion Gap 3 BUN 24 H Creatinine 1.14 Est Cr Clr Drug Dosing 109.6 Est GFR ( Amer) 83.4 Est GFR (Non-Af Amer) 72.0 BUN/Creatinine Ratio 21.1 H Glucose 142 H Lactate Calcium 8.9 Total Bilirubin 3.2 H AST 16 ALT 12 Alkaline Phosphatase 62 C-Reactive Protein Total Protein 6.5 Albumin 3.9 Globulin 2.6 Albumin/Globulin Ratio 1.5 Procalcitonin Urine Color Yellow Urine Appearance Clear Urine pH 5.5 Ur Specific [place] 1.020 Urine Protein Negative Urine Glucose (UA) Negative Urine Ketones Trace H Urine Blood Negative Urine Nitrite Negative Urine Bilirubin Negative Urine Urobilinogen Negative Ur Leukocyte Esterase Negative Nasal Screen MRSA (PCR) Bld Cult ID Panel PCR PG Care Time/CCT Total # of Minutes Spent Total Time Spent with Patient: Total time spent is greater than 50% in coordination of care (as documented) at patient's floor/unit and/or counseling patient: Coding Level of Care Code 34854 Subseq Hosp Care Lvl 2 Diagnoses Exertional dyspnea R06.09 Acute exacerbation of congestive heart failure I50.9 AICD (automatic cardioverter/defibrillator) present Z95.810 Cardiomyopathy I42.9 Mitral regurgitation I34.0
[2021-12-29] MEDS ORDERED: BUMETANIDE 1 MG in SYRINGE 0 ML IV ONE (17:45)
[2021-12-29] MEDS: ATORVASTATIN 40 MG TAB PO SCH (19:30)
[2021-12-29] MEDS ORDERED: VANCOMYCIN CONSULT ACTIVE PRN (20:04)
[2021-12-29] MEDS ORDERED: VANCOMYCIN HCL 1,000 MG in SODIUM CHLORIDE 0.9% 250 ML IV SCH (20:15)
[2021-12-29] MEDS: VANCOMYCIN HCL 1,250 MG in SODIUM CHLORIDE 0.9% 250 ML IV SCH (21:29)
[2021-12-30] MEDS: ENOXAPARIN INJ 40 MG/0.4 ML SYR SQ SCH ×2 (06:04→17:27)
[2021-12-30 07:01] LABS: Albumin Globulin Ratio 1.3 (0.9-2); Albumin Level 3.7 gm/dl (3.4-5.0); BUN Creatinine Ratio 18.3 (10-20); Bilirubin,Total 2.9 mg/dl (0.2-1.0); Creatinine Clr Calc Pharmacy 114.4 ml/min; Est GFR (African American) 88.1 ml/min; Globulin 2.9 gm/dl (2.5-4.0); Potassium 4.4 mmol/L (3.5-5.1); Total Protein 6.6 gm/dl (6.0-8.3)
--- NOTE | 2021-12-30 07:31 | Hospitalist Progress Note ---
Date of Service December 30, 2021 Assessment & Plan (1) Exertional dyspnea: Plan: Lenard Machado is a 56yo male with PMHx significant for non-ischemic cardiomyopathy/chronic HFrEF (last EF 40% in 09/2021), AICD, HTN, morbid obesity (BMI 51.8), COTY/OHS (on CPAP) who presented to [facility] ED on 12/27 for exertional dyspnea and orthopnea x1 week. Exertional Dyspnea; Hypoxia; Mild acute HFrEF Exertional dyspnea and orthopnea x1 week, with hypoxia to 80% in the ED. BNP only mildly elevated but CTA chest with pulmonary edema - suspect component of mild acute HFrEF, largely due to dietary non-compliance. However patient also reports possible CPAP malfunction and increase in apneic episodes over last several days which suggests that obesity hypoventilation/COTY is also playing a role. - Lasix 40mg IV x1 in ER; diuretics held on admission due to hypotension (see below) - bumex 1mg IV x1 given (12/28) but held again afterwards due to hypotension - Echo (12/27): EF 40-45%, moderate LVF, moderate MR, moderate global hypokinesis left ventricle - CXR admission: cardiomegaly and AICD with evidence of CHF and pulm edema - CTA chest: no PE, trace bilateral pleural effusions - BNP mildly elevated on admission - cont. home atorvastatin - 1.5L fluid restriction and 2g sodium restriction - supplemental O2 to maintain SpO2 >90%, ween as able - strict I/Os, daily weights - consulted Cardiology - appreciate recs -cont. diuresis if able -if no improvement, consider other etiologies including amiodarone toxicity; consider advanced imaging with high resolution CT -consider addition of Jardiance which should not affect BP -restart carvedilol at half dose (12.5 bid) if BP allows -Bumex 1mg IV x2 given today, will reassess tomorrow, monitor Cr; cont. diuresis if able Mild Hypotension, improved BP 91/60 in the ED, and patient's son reported that his BP was 70s/40s at home when he was having a headache. No reflex tachycardia which suggests that this is more chronic in nature. - cont. holding home Losartan - restart carvedilol as above Gram Positive Bacteremia/?contaminant, source unknown -patient presented hypotensive on arrival, HRs stable; low concern for infection at the time -blood cx PCR neg -blood cx growing bacillus species not anthracic; repeat cx neg; d/c vanc (12/30) -MRSA nares screen neg -UA neg -procal, lactate wnl -repeat CXR (12/28): cardiomegaly and central vascular congestion Morbid Obesity; Obesity Hypoventilation Syndrome; COTY BMI 51.8. Possible CPAP malfunction may be contributing to dyspnea/hypoxia as stated above. - CPAP HS - supplemental O2 as stated above Ventricular tachycardia -continue home Amiodarone Gout -continue home Allopurinol DVT ppx: lovenox FEN/GI: HH, 2g salt restriction, 1.5L fluid restriction Code Status: full Dispo: med tele (2) Hypotension: (3) Hypoxia: (4) Acute exacerbation of congestive heart failure: (5) Restrictive lung disease: (6) Sleep apnea: (7) Cardiomyopathy: (8) Morbid obesity: (9) Obstructive sleep apnea of adult: (10) AICD (automatic cardioverter/defibrillator) present: Admission and Anticipated Discharge Date Admission Date: December 27, 2021 Supervising Physician Co-Signing Physician Notes Patient seen and examined independently of PGY-2 Dr. Escobar. Agree with history, exam findings, assessment and plan of care as outlined. In brief, Mr. Machado is a 56 year old male with PMHx significant for non- ischemic cardiomyopathy/chronic HFrEF (last EF 40% in 09/2021), AICD, HTN, morbid obesity (BMI 51.8), COTY/OHS (on CPAP) who presented to [facility] ED on 12/27 for exertional dyspnea and orthopnea x1 week. Has been urinating quite a bit following 2 doses of IV bumex today. Currently on 1 L NC. At baseline, is not able to lie flat on his back to sleep but does feel this has been a bit more uncomfortable lately. VS and nursing notes reviewed. Heart with regular rate and rhythm. Trace edema in the bilateral lower extremities. Lungs are clear throughout. No crackles or wheezes. No accessory muscle use. Labs and imaging reviewed. 1. Exertional dyspnea, hypoxia, mild acute HFrEF. CTA with pulmonary edema, BNP minimally elevated. Suspect dietary non-adherence playing a role + malfunction of CPAP. s/p 2 doses of IV bumex today and negative fluid balance. Fluid restriction to 1.5L, 2g Na restriction. 2. Hypotension. Holding home coreg and losartan. Restart coreg at lower dose in the AM. 3. Morbid obesity, obesity hypoventilation syndrome, COTY. BMI 51.8. CPAP malfunction at home. 4. Vtach. Continue home amiodarone 5. Positive blood culture. Currently 1/2 bottles growing Bacillus species--likely contaminant. Repeat cultures without growth x 48 hours. Stopped antibiotics. Dispo: pending clinical improvement. Subjective Patient seen at bedside this morning. No overnight events. No acute complaints. Feels similar to yesterday. NC still in place. Denies chest pain, abdominal pain, AARON, N/V, lightheadedness, dizziness. Review of Systems Review of Systems: All systems reviewed & are unremarkable except as noted in HPI & below Physical Exam Physical Exam: General: AOx3. NAD. Cooperative. Morbidly obese. HEENT: Atraumatic, normocephalic. Pulm: Diminished lung sounds bilaterally. No wheezes, rales, or rhonchi appreciated. Symmetrical chest rise. No increase work of breathing. No respiratory distress. Cardiac: RRR, no murmurs. Radial pulses intact and symmetrical. 1+ pretibial and pedal edema. Abdominal: soft, nontender, nondistended, +BS Skin: warm, dry, no rash Results & Data Results & Data ([facility]) Vital Signs (Past 12 Hours) Vital Signs Temp Pulse Pulse Resp BP Pulse Ox Pulse Ox 12/30/21 01:00 91 12/30/21 02:36 36.8 C 70 22 124/78 91 12/29/21 23:00 70 12/29/21 22:54 36.9 C 70 20 133/81 91 12/29/21 19:43 O2 Del Method O2 Del Method O2 Flow Rate 12/30/21 01:00 CPAP 12/30/21 02:36 Nasal Cannula 1 12/29/21 23:00 12/29/21 22:54 BiPAP 12/29/21 19:43 Nasal Cannula 2 Laboratory Results 12/30/21 Range/Units 06:01 Sodium 142 (136-145) mmol/L Potassium 4.4 (3.5-5.1) mmol/L Chloride 109 H (98-107) mmol/L Carbon Dioxide 28 (21-32) mmol/L Anion Gap 5 (3-11) BUN 20 (6-23) mg/dl Creatinine 1.09 (0.6-1.4) mg/dl Est Cr Clr Drug Dosing 114.4 ml/min Est GFR ( Amer) 88.1 ml/min Est GFR (Non-Af Amer) 76.0 ml/min BUN/Creatinine Ratio 18.3 (10-20) Glucose 140 H (70-99(Fasting)) mg/dl Calcium 9.0 (8.5-10.1) mg/dl Total Bilirubin 2.9 H (0.2-1.0) mg/dl AST 15 (13-39) U/L ALT 10 (7-52) U/L Alkaline Phosphatase 61 (34-104) U/L Total Protein 6.6 (6.0-8.3) gm/dl Albumin 3.7 (3.4-5.0) gm/dl Globulin 2.9 (2.5-4.0) gm/dl Albumin/Globulin Ratio 1.3 (0.9-2) Resident Activity Tracking Resident Involvement: Resident Care Provided Care Provided: Adult Hospital Medicine
[2021-12-30] MEDS ORDERED: BUMETANIDE 1 MG in SYRINGE 0 ML IV ONE ×2 (08:00→14:15)
[2021-12-30] MEDS: POTASSIUM CHLORIDE CRTAB 20 MEQ TABCR PO SCH ×3 (08:08→17:27)
[2021-12-30] MEDS: OMEGA-3 (PURIFIED FISH OIL) 1 GM CAP PO SCH (08:08)
[2021-12-30] MEDS: CHOLECALCIFEROL 1,000 UNITS 25 MCG TAB PO SCH (08:08)
[2021-12-30] MEDS: AMIODARONE 200 MG TAB PO SCH (08:08)
[2021-12-30] MEDS: allopurinoL 300 MG TAB PO SCH (08:08)
[2021-12-30] MEDS: VANCOMYCIN HCL 1,250 MG in SODIUM CHLORIDE 0.9% 250 ML IV SCH (08:09)
--- NOTE | 2021-12-30 15:19 | Cardiology Progress Note ---
Date of Service December 30, 2021 Assessment & Plan (1) Exertional dyspnea: (2) Acute exacerbation of congestive heart failure: (3) AICD (automatic cardioverter/defibrillator) present: (4) Cardiomyopathy: (5) Mitral regurgitation: Plan 1. Dyspnea: Likely related to pulmonary congestion. He received 2 doses diuretic today. We will see if this makes an improvement. 2. Cardiomyopathy: Nonischemic. Overall function appears improved versus prior evaluations. No need to gradually reintroduce his medical therapy. I would recommend starting with carvedilol. Possibly at half dose 12.5 mg twice daily. 3. Ventricular fibrillation: He did have a an appropriate device therapy in early November. Does recall syncope associated with that episode. He had discontinued his amiodarone at that time. No arrhythmias since November. Continue amiodarone 4. Mitral regurgitation 5. Normally functioning dual-chamber ICD Blood pressure appears stable. 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 His blood pressure remains stable I will consider reinstituting carvedilol tomorrow in addition to his diuretic. Admission and Anticipated Discharge Date Admission Date: December 27, 2021 Subjective This afternoon the patient reports feeling about the same. He has not noticed any significant improvement in his breathing. Some dizziness with activity. Generally comfortable at rest. Review of Systems Review of Systems: Per HPI Physical Exam Physical Exam: The patient is alert and oriented. Mood and affect appeared normal. He answered all questions appropriately. Obese HEENT: Pupils are equal and reactive to light and accommodation. Extraocular movements are intact. The sclerae are anicteric. Neuro: Cranial nerves intact Lungs: Clear lung mims Normal respiratory effort. Distant breath sounds overall. Cardiac: Heart demonstrates a regular rate and rhythm. Normal S1 and S2. No murmurs on examination. Pulses: The patient has palpable radial pulses bilaterally that are equal in intensity Extremities: There was no evidence of hypoperfusion. There is no cyanosis or clubbing. Wearing compression stockings Skin: I did not appreciate any rashes on examination today. Results & Data ([facility]) Vital Signs (Past 12 Hours) Vital Signs Temp Pulse Resp BP Pulse Ox O2 Del Method O2 Flow Rate 12/30/21 12:13 36.5 C 71 20 114/73 92 Room Air 12/30/21 08:00 Nasal Cannula 1 12/30/21 07:55 36.8 C 76 17 113/75 91 Nasal Cannula 2 Laboratory Results Abnormal Lab Results 12/30/21 06:01 Sodium 142 Potassium 4.4 Chloride 109 H Carbon Dioxide 28 Anion Gap 5 BUN 20 Creatinine 1.09 Est Cr Clr Drug Dosing 114.4 Est GFR ( Amer) 88.1 Est GFR (Non-Af Amer) 76.0 BUN/Creatinine Ratio 18.3 Glucose 140 H Calcium 9.0 Total Bilirubin 2.9 H AST 15 ALT 10 Alkaline Phosphatase 61 Total Protein 6.6 Albumin 3.7 Globulin 2.9 Albumin/Globulin Ratio 1.3 Diagnostic Findings Chest x-ray obtained the time admission revealed cardiomegaly and pulmonary vascular congestion Chest CTA obtained the time admission not reveal any evidence of pulmonary embolus. I performed a complete device interrogation which revealed the known episode of ventricular fibrillation in November of this year. No other arrhythmias recently. Normal device function with longevity estimated 2.2 years. OptiVol in the normal range. Echocardiogram performed today revealed mildly reduced LV systolic function. PG Care Time/CCT Total # of Minutes Spent Total Time Spent with Patient: Total time spent is greater than 50% in coordination of care (as documented) at patient's floor/unit and/or counseling patient: Coding Level of Care Code 57974 Subseq Hosp Care Lvl 2 Diagnoses Exertional dyspnea R06.09 Acute exacerbation of congestive heart failure I50.9 AICD (automatic cardioverter/defibrillator) present Z95.810 Cardiomyopathy I42.9 Mitral regurgitation I34.0
[2021-12-30] MEDS: ATORVASTATIN 40 MG TAB PO SCH (20:05)
[2021-12-30] MEDS: carvediloL 12.5 MG TAB PO SCH (20:16)
[2021-12-31] MEDS: ENOXAPARIN INJ 40 MG/0.4 ML SYR SQ SCH ×2 (06:26→17:36)
[2021-12-31 06:52] LABS: Albumin Globulin Ratio 1.3 (0.9-2); Albumin Level 4.1 gm/dl (3.4-5.0); BUN Creatinine Ratio 17.8 (10-20); Bilirubin,Total 3.8 mg/dl (0.2-1.0); Calcium 9.4 mg/dl (8.5-10.1); Creatinine Clr Calc Pharmacy 105.7 ml/min; Est GFR (Non-African American) 69.1 ml/min; Globulin 3.2 gm/dl (2.5-4.0); Potassium 4.6 mmol/L (3.5-5.1); Total Protein 7.3 gm/dl (6.0-8.3)
[2021-12-31] MEDS ORDERED: VANCOMYCIN LEVEL SCH (08:00)
[2021-12-31] MEDS ORDERED: BUMETANIDE 1 MG in SYRINGE 0 ML IV ONE ×2 (08:30→14:00)
[2021-12-31] MEDS: carvediloL 12.5 MG TAB PO SCH ×2 (08:44→20:19)
[2021-12-31] MEDS: POTASSIUM CHLORIDE CRTAB 20 MEQ TABCR PO SCH ×3 (08:44→17:36)
[2021-12-31] MEDS: allopurinoL 300 MG TAB PO SCH (08:45)
[2021-12-31] MEDS: OMEGA-3 (PURIFIED FISH OIL) 1 GM CAP PO SCH (08:45)
[2021-12-31] MEDS: CHOLECALCIFEROL 1,000 UNITS 25 MCG TAB PO SCH (08:45)
[2021-12-31] MEDS: AMIODARONE 200 MG TAB PO SCH (08:45)
[2021-12-31] MEDS: ACETAMINOPHEN 325 MG TAB PO PRN (09:49)
--- NOTE | 2021-12-31 12:57 | Cardiology Progress Note ---
Date of Service December 31, 2021 Assessment & Plan (1) Exertional dyspnea: (2) Acute exacerbation of congestive heart failure: (3) AICD (automatic cardioverter/defibrillator) present: (4) Cardiomyopathy: (5) Mitral regurgitation: Plan 1. Dyspnea: Likely related to pulmonary congestion. He seems to feel better with his diuretics and a mild diuresis. It would be nice if he had more net output. He will get additional doses of bumetanide today. Will monitor his electrolytes and renal function closely. No change currently. 2. Cardiomyopathy: Nonischemic. Overall function appears improved versus prior evaluations. If his blood pressure remains stable and he is tolerating his current dose of carvedilol, we could consider increasing it to 25 mg twice daily tomorrow. 3. Ventricular fibrillation: No recurrent arrhythmias. Continue amiodarone and carvedilol. 4. Mitral regurgitation 5. Normally functioning dual-chamber ICD I will order a BNP for tomorrow morning. This may help determine the efficacy of his diuresis. He certainly appears to be feeling better in his lung examination is relatively benign. Some of his symptoms could be related to an underlying infection as well. Hopefully we can reinstitute some of his therapy for heart failure. Will consider restarting low-dose of losartan as well prior to discharge if his blood pressure allows. I will be away from the hospital for the next 2 days. If there are additional questions regarding his care please contact the on-call [facility] touring production manager Admission and Anticipated Discharge Date Admission Date: December 27, 2021 Subjective This morning the patient claims to be feeling better. He states that his breathing is improved but certainly he has an element of dyspnea. He was able ambulate in his room with less dyspnea today. No headache. Less dizziness. Review of Systems Review of Systems: Per HPI Physical Exam Physical Exam: The patient is alert and oriented. Mood and affect appeared normal. He answered all questions appropriately. Obese HEENT: Pupils are equal and reactive to light and accommodation. Extraocular movements are intact. The sclerae are anicteric. Neuro: Cranial nerves intact Lungs: Clear lung mims Normal respiratory effort. Distant breath sounds overall. Cardiac: Heart demonstrates a regular rate and rhythm. Normal S1 and S2. No murmurs on examination. Pulses: The patient has palpable radial pulses bilaterally that are equal in intensity Extremities: There was no evidence of hypoperfusion. There is no cyanosis or clubbing. Wearing compression stockings Skin: I did not appreciate any rashes on examination today. Results & Data ([facility]) Vital Signs (Past 12 Hours) Vital Signs Temp Pulse Resp BP Pulse Ox Pulse Ox O2 Del Method 12/31/21 11:35 36.7 C 80 22 109/68 90 Room Air 12/31/21 10:18 90 Room Air 12/31/21 08:08 36.8 C 71 22 115/74 95 Nasal Cannula 12/31/21 03:33 36.8 C 74 18 120/76 92 CPAP 12/31/21 01:00 94 O2 Del Method O2 Flow Rate 12/31/21 11:35 12/31/21 10:18 12/31/21 08:08 2 12/31/21 03:33 12/31/21 01:00 CPAP Laboratory Results Abnormal Lab Results 12/31/21 06:16 Sodium 142 Potassium 4.6 Chloride 107 Carbon Dioxide 27 Anion Gap 8 BUN 21 Creatinine 1.18 Est Cr Clr Drug Dosing 105.7 Est GFR ( Amer) 80.0 Est GFR (Non-Af Amer) 69.1 BUN/Creatinine Ratio 17.8 Glucose 182 H Calcium 9.4 Total Bilirubin 3.8 H AST 18 ALT 13 Alkaline Phosphatase 67 Total Protein 7.3 Albumin 4.1 Globulin 3.2 Albumin/Globulin Ratio 1.3 Diagnostic Findings Chest x-ray obtained the time admission revealed cardiomegaly and pulmonary vascular congestion Chest CTA obtained the time admission not reveal any evidence of pulmonary embolus. I performed a complete device interrogation which revealed the known episode of ventricular fibrillation in November of this year. No other arrhythmias recently. Normal device function with longevity estimated 2.2 years. OptiVol in the normal range. Echocardiogram performed today revealed mildly reduced LV systolic function. PG Care Time/CCT Total # of Minutes Spent Total Time Spent with Patient: Total time spent is greater than 50% in coordination of care (as documented) at patient's floor/unit and/or counseling patient: Coding Level of Care Code 10591 Subseq Hosp Care Lvl 2 Diagnoses Exertional dyspnea R06.09 Acute exacerbation of congestive heart failure I50.9 AICD (automatic cardioverter/defibrillator) present Z95.810 Cardiomyopathy I42.9 Mitral regurgitation I34.0
--- NOTE | 2021-12-31 12:57 | Hospitalist Progress Note ---
Date of Service December 31, 2021 Assessment & Plan (1) Exertional dyspnea: Plan: Lenard Machado is a 56yo male with PMHx significant for non-ischemic cardiomyopathy/chronic HFrEF (last EF 40% in 09/2021), AICD, HTN, morbid obesity (BMI 51.8), COTY/OHS (on CPAP) who presented to [facility] ED on 12/27 for exertional dyspnea and orthopnea x1 week. Exertional Dyspnea; Hypoxia; Mild acute HFrEF Exertional dyspnea and orthopnea x1 week, with hypoxia to 80% in the ED. BNP only mildly elevated but CTA chest with pulmonary edema - suspect component of mild acute HFrEF, largely due to dietary non-compliance. However patient also reports possible CPAP malfunction and increase in apneic episodes over last several days which suggests that obesity hypoventilation/COTY is also playing a role. - Lasix 40mg IV x1 in ER; diuretics held on admission due to hypotension (see below) - bumex 1mg IV x1 given (12/28) but held again afterwards due to hypotension - Echo (12/27): EF 40-45%, moderate LVF, moderate MR, moderate global hypokinesis left ventricle - CXR admission: cardiomegaly and AICD with evidence of CHF and pulm edema - CTA chest: no PE, trace bilateral pleural effusions - BNP mildly elevated on admission - cont. home atorvastatin - 1.5L fluid restriction and 2g sodium restriction - supplemental O2 to maintain SpO2 >90%, ween as able - strict I/Os, daily weights - Cr wnl, stable - consulted Cardiology - appreciate recs -cont. diuresis if able -if no improvement, consider other etiologies including amiodarone toxicity; consider advanced imaging with high resolution CT -consider addition of Jardiance which should not affect BP -restart carvedilol at half dose (12.5 bid) if BP allows -continue bumex 1mg IV bid if BP allows, will reassess tomorrow, monitor Cr Mild Hypotension, improved BP 91/60 in the ED, and patient's son reported that his BP was 70s/40s at home when he was having a headache. No reflex tachycardia which suggests that this is more chronic in nature. - cont. holding home Losartan - cont. half dose carvedilol as above Gram Positive Bacteremia/?contaminant, source unknown -patient presented hypotensive on arrival, HRs stable; low concern for infection at the time -blood cx PCR neg -blood cx growing bacillus species not anthracic; repeat cx neg; d/c vanc (12/30) -MRSA nares screen neg -UA neg -procal, lactate wnl -repeat CXR (12/28): cardiomegaly and central vascular congestion Morbid Obesity; Obesity Hypoventilation Syndrome; COTY BMI 51.8. Possible CPAP malfunction may be contributing to dyspnea/hypoxia as stated above. - CPAP HS - supplemental O2 as stated above Ventricular tachycardia -continue home Amiodarone Gout -continue home Allopurinol DVT ppx: lovenox FEN/GI: HH, 2g salt restriction, 1.5L fluid restriction Code Status: full Dispo: med tele (2) Hypotension: (3) Hypoxia: (4) Acute exacerbation of congestive heart failure: (5) Restrictive lung disease: (6) Sleep apnea: (7) Cardiomyopathy: (8) Morbid obesity: (9) Obstructive sleep apnea of adult: (10) AICD (automatic cardioverter/defibrillator) present: Admission and Anticipated Discharge Date Admission Date: December 27, 2021 Supervising Physician Co-Signing Physician Notes Attending attestation Pt seen and examined in concert with Dr. Escobar. In agreement with the documented findings as noted in the resident documentation with any exceptions or additions as noted here. 56 y/o male h/o non-ischemic cardiomyopathy w/ HFrEF (EF 40% in 10/08), AICD, HTN, morbid obesity, OHS on CPAP w/ MARIE/orthopnea 2/2 HFrEF w/ exacerbation Feeling much closer to baseline today, able to stand and chat with neighboring bed with reduced SOB. Good response to Bumex. On examination, S1/S2 nl RRR no MCG. Distant breath sounds. Abd NT/ND BS+ve HFrEF w/ exacerbation - cardiology consult - improving with IV diuresis. Continue same and monitor I/O closely, evaluate for dry weight, consider dispo with continued improvement. Else see resident documentation as noted. Subjective Patient seen at bedside this morning. No overnight events. No acute complaints. Feels similar to yesterday, mildly improved. Has been trying to self ween oxygen. Denies chest pain, abdominal pain, AARON, N/V, lightheadedness, dizziness. Review of Systems Review of Systems: All systems reviewed & are unremarkable except as noted in HPI & below Physical Exam Physical Exam: General: AOx3. NAD. Cooperative. Morbidly obese. HEENT: Atraumatic, normocephalic. Pulm: Diminished lung sounds bilaterally. No wheezes, rales, or rhonchi appreciated. Symmetrical chest rise. No increase work of breathing. No respiratory distress. Cardiac: RRR, no murmurs. Radial pulses intact and symmetrical. 1+ pretibial and pedal edema. Abdominal: soft, nontender, nondistended, +BS Skin: warm, dry, no rash Results & Data Results & Data ([facility]) Vital Signs (Past 12 Hours) Vital Signs Temp Pulse Resp BP Pulse Ox Pulse Ox O2 Del Method 12/31/21 11:35 36.7 C 80 22 109/68 90 Room Air 12/31/21 10:18 90 Room Air 12/31/21 08:08 36.8 C 71 22 115/74 95 Nasal Cannula 12/31/21 03:33 36.8 C 74 18 120/76 92 CPAP 12/31/21 01:00 94 O2 Del Method O2 Flow Rate 12/31/21 11:35 12/31/21 10:18 12/31/21 08:08 2 12/31/21 03:33 12/31/21 01:00 CPAP Laboratory Results 12/31/21 Range/Units 06:16 Sodium 142 (136-145) mmol/L Potassium 4.6 (3.5-5.1) mmol/L Chloride 107 (98-107) mmol/L Carbon Dioxide 27 (21-32) mmol/L Anion Gap 8 (3-11) BUN 21 (6-23) mg/dl Creatinine 1.18 (0.6-1.4) mg/dl Est Cr Clr Drug Dosing 105.7 ml/min Est GFR ( Amer) 80.0 ml/min Est GFR (Non-Af Amer) 69.1 ml/min BUN/Creatinine Ratio 17.8 (10-20) Glucose 182 H (70-99(Fasting)) mg/dl Calcium 9.4 (8.5-10.1) mg/dl Total Bilirubin 3.8 H (0.2-1.0) mg/dl AST 18 (13-39) U/L ALT 13 (7-52) U/L Alkaline Phosphatase 67 (34-104) U/L Total Protein 7.3 (6.0-8.3) gm/dl Albumin 4.1 (3.4-5.0) gm/dl Globulin 3.2 (2.5-4.0) gm/dl Albumin/Globulin Ratio 1.3 (0.9-2) Resident Activity Tracking Resident Involvement: Resident Care Provided Care Provided: Adult [facility] Medicine
[2021-12-31] MEDS: ATORVASTATIN 40 MG TAB PO SCH (20:19)
[2022-01-01] MEDS: ENOXAPARIN INJ 40 MG/0.4 ML SYR SQ SCH ×2 (06:27→17:20)
[2022-01-01 07:21] LABS: Iron 72 mcg/dl (35-175); Total Iron Binding Cap Calc 276 mcg/dl (250-450); Transferrin (FE) Percent Satur 26 % (20-50); Unsaturated Iron Binding Cap 204 mcg/dl (155-355)
[2022-01-01 07:48] LABS: Albumin Globulin Ratio 1.3 (0.9-2); Albumin Level 4.1 gm/dl (3.4-5.0); BUN Creatinine Ratio 20.5 (10-20); Bilirubin,Total 3.8 mg/dl (0.2-1.0); Calcium 9.4 mg/dl (8.5-10.1); Creatinine Clr Calc Pharmacy 106.1 ml/min; Est GFR (African American) 80.9 ml/min; Est GFR (Non-African American) 69.8 ml/min; Globulin 3.1 gm/dl (2.5-4.0); Potassium 4.2 mmol/L (3.5-5.1); Total Protein 7.2 gm/dl (6.0-8.3)
[2022-01-01] MEDS ORDERED: BUMETANIDE 1 MG in SYRINGE 0 ML IV ONE (08:00)
[2022-01-01 08:03] LABS: Ferritin 319.1 ng/ml (8-388)
[2022-01-01] MEDS: AMIODARONE 200 MG TAB PO SCH (08:18)
[2022-01-01] MEDS: carvediloL 12.5 MG TAB PO SCH ×2 (08:18→20:34)
[2022-01-01] MEDS: allopurinoL 300 MG TAB PO SCH (08:18)
[2022-01-01] MEDS: POTASSIUM CHLORIDE CRTAB 20 MEQ TABCR PO SCH ×3 (08:18→17:20)
[2022-01-01] MEDS: OMEGA-3 (PURIFIED FISH OIL) 1 GM CAP PO SCH (08:19)
[2022-01-01] MEDS: CHOLECALCIFEROL 1,000 UNITS 25 MCG TAB PO SCH (08:19)
--- NOTE | 2022-01-01 10:01 | Hospitalist Progress Note ---
Date of Service January 01, 2022 Assessment & Plan (1) Exertional dyspnea: Plan: Lenard Machado is a 56yo male with PMHx significant for non-ischemic cardiomyopathy/chronic HFrEF (last EF 40% in 09/2021), AICD, HTN, morbid obesity (BMI 51.8), COTY/OHS (on CPAP) who presented to [facility] ED on 12/27 for exertional dyspnea and orthopnea x1 week. Acute HFrEF exacerbation - Suspect 2/2 dietary non-compliance, uncontrolled OHS/COTY due to CPAP malfunc tion, - Echo (12/27): EF 40-45%, moderate LVF, moderate MR, moderate global hypokinesis left ventricle - CXR on admission: cardiomegaly and AICD with evidence of CHF and pulm edema - CTA chest: no PE, trace bilateral pleural effusions - 1.5L fluid restriction and 2g sodium restriction, strict I/Os, daily weights - supplemental O2 as needed to maintain SpO2 >90%, currently on RA - Cr wnl, stable - Weight 158.2 to 156.8 kg today, adequate UOP 2.3L - consulted Cardiology - appreciate recs -cont. diuresis if able -if no improvement, consider other etiologies including amiodarone toxicity; consider advanced imaging with high resolution CT -consider addition of Jardiance which should not affect BP -restart carvedilol at half dose (12.5 bid) if BP allows. Continue carvedilol at half dose -Resumed home Bumex 2 mg PO BID today with afternoon dose -If pt continues to diurese well with PO Bumex, consider d/c tomorrow with close PCP f/u Hypotension, improved BP 91/60 in the ED, and patient's son reported that his BP was 70s/40s at home when he was having a headache. No reflex tachycardia which suggests that this is more chronic in nature. - cont. holding home Losartan - cont. half dose carvedilol as above - Will continue to hold hypertensive medication on discharge, PCP to resume at close f/u Contaminant Gram Positive Bacteremia, source unknown -patient presented hypotensive on arrival, HRs stable; low concern for infection -blood cx PCR neg -blood cx growing bacillus species not anthracic; repeat cx neg; d/c vanc (12/30) -MRSA nares screen neg -UA neg -procal, lactate wnl -repeat CXR (12/28): cardiomegaly and central vascular congestion Morbid Obesity; Obesity Hypoventilation Syndrome; COTY BMI 51.8. Possible CPAP malfunction may be contributing to dyspnea/hypoxia as stated above. - CPAP HS - supplemental O2 as stated above Ventricular tachycardia -continue home Amiodarone Gout -continue home Allopurinol Hyperlipidemia -Continue home atorvastatin DVT ppx: lovenox FEN/GI: HH, 2g salt restriction, 1.5L fluid restriction Code Status: full Dispo: med tele (2) Hypotension: (3) Hypoxia: (4) Acute exacerbation of congestive heart failure: (5) Restrictive lung disease: (6) Sleep apnea: (7) Cardiomyopathy: (8) Morbid obesity: (9) Obstructive sleep apnea of adult: (10) AICD (automatic cardioverter/defibrillator) present: Admission and Anticipated Discharge Date Admission Date: December 27, 2021 Supervising Physician Co-Signing Physician Notes Attending attestation Pt seen and examined in concert with Dr. Roe. In agreement with the documented findings as noted in the resident documentation with any exceptions or additions as noted here. 56 y/o male h/o non-ischemic cardiomyopathy w/ HFrEF (EF 40% in 10/08), AICD, HTN, morbid obesity, OHS on CPAP w/ MARIE/orthopnea 2/2 HFrEF w/ exacerbation Continues to feel less swelling and SOB, easier to get around. Considerable UOP on IV bumetanide. On examination, S1/S2 nl RRR no MCG. Distant breath sounds. Abd NT/ND BS+ve. 1+ pitting edema of the b/l to the knee while sitting HFrEF w/ exacerbation - cardiology consult - continue IV diuresis this AM with trial transition to PO home regimen in PM and close monitoring I/O. Else see resident documentation as noted. Subjective No acute events overnight. Pt feels well, states he is breathing without difficulty and notes leg swelling has further decreased from yesterday. Eating and drinking without issue. Denies any acute complaints. Review of Systems Review of Systems: Per Subjective Physical Exam Physical Exam: General: NAD. Cooperative. Morbidly obese. HEENT: Atraumatic, normocephalic. No JVD b/l Pulm: Slightly diminished lung sounds bilaterally but otherwise clear without focal wheezes or crackles. Symmetrical chest rise. No increase work of breathing. No respiratory distress. Cardiac: RRR, no murmurs. Radial pulses intact and symmetrical. 1+ pretibial and pedal edema reportedly improved from day prior Abdominal: soft, nontender, nondistended, +BS Skin: warm, dry, no rash Results & Data Results & Data ([facility]) Vital Signs (Past 12 Hours) Vital Signs Temp Pulse Pulse Resp BP Pulse Ox O2 Del Method 01/01/22 09:35 70 01/01/22 08:02 36.7 C 71 20 117/70 93 Room Air 01/01/22 04:03 36.2 C L 70 20 128/84 95 CPAP 12/31/21 23:15 36.8 C 74 20 104/68 96 CPAP 12/31/21 22:51 70 Resident Activity Tracking Resident Involvement: Resident Care Provided Care Provided: Adult Hospital Medicine
[2022-01-01] MEDS: BUMETANIDE 1 MG TAB PO SCH (15:46)
[2022-01-01] MEDS: ATORVASTATIN 40 MG TAB PO SCH (20:34)
[2022-01-02] MEDS: ENOXAPARIN INJ 40 MG/0.4 ML SYR SQ SCH (06:04)
[2022-01-02 07:10] LABS: Albumin Globulin Ratio 1.4 (0.9-2); Albumin Level 3.9 gm/dl (3.4-5.0); BUN Creatinine Ratio 19.2 (10-20); Bilirubin,Total 3.5 mg/dl (0.2-1.0); Calcium 9.2 mg/dl (8.5-10.1); Creatinine Clr Calc Pharmacy 94.8 ml/min; Est GFR (African American) 71.2 ml/min; Est GFR (Non-African American) 61.4 ml/min; Globulin 2.8 gm/dl (2.5-4.0); Potassium 4.3 mmol/L (3.5-5.1); Total Protein 6.7 gm/dl (6.0-8.3)
[2022-01-02] MEDS: allopurinoL 300 MG TAB PO SCH (09:11)
[2022-01-02] MEDS: carvediloL 12.5 MG TAB PO SCH (09:11)
[2022-01-02] MEDS: AMIODARONE 200 MG TAB PO SCH (09:11)
[2022-01-02] MEDS: POTASSIUM CHLORIDE CRTAB 20 MEQ TABCR PO SCH ×2 (09:11→11:55)
[2022-01-02] MEDS: BUMETANIDE 1 MG TAB PO SCH (09:11)
[2022-01-02] MEDS: OMEGA-3 (PURIFIED FISH OIL) 1 GM CAP PO SCH (09:11)
[2022-01-02] MEDS: CHOLECALCIFEROL 1,000 UNITS 25 MCG TAB PO SCH (09:11)
--- NOTE | 2022-01-02 10:44 | Discharge Summary ---
Date of Service January 02, 2022 Admission HPI Per Admitting Provider Lenard Machado is a 56yo male with PMHx significant for non-ischemic cardiomyopathy/chronic HFrEF (last EF 40% in 09/2021), AICD, HTN, morbid obesity (BMI 51.8), COTY/OHS (on CPAP) who presented to [facility] ED on 12/27 for exertional dyspnea and orthopnea x1 week. Has some LE edema that is chronic but no recent worsening of this. Admits to eating soups with salt and has recently gone out for pizza, chicken wings, and beer although he says he "doesn't usually do this". Follows with Dr. Abdalla but has not been to the HF clinic as of yet. Patient does report that he uses CPAP nightly but that his device has recently been malfunctioning and he is in the process of getting a new one - still uses his old CPAP nightly but is unsure if it is working properly. Patient does report that he has had many noticeable apneic episodes over the last week at night, which has disrupted his sleep. Denies fever/chills, chest pain, palpitations, N/V, abdominal pain, diarrhea, dysuria, or rash. Of note the patient missed ~2 weeks of Amiodarone one month ago, but re-started the medication 2 weeks ago. Otherwise he has taken all medications, including diuretics, as prescribed. Patient is a never smoker and denies drug use. He is proficient in ADLs/iADLs. In the ED the patient was hypoxic to 80% on room air and improved to high 90s on 3L NC. Otherwise hemodynamically stable. Labs significant for Hgb 11.3 (~baseline), d-dimer 1000, Tbili 2.6 (~baseline). BNP 119. COVID-19 negative. CTA chest showing small bilateral pleural effusions and pulmonary edema. Patient received Tylenol 500mg PO x1 for AARON. Admission Exam Per Admitting Provider General: A&Ox3. NAD. Cooperative. HEENT: Atraumatic, normocephalic. Pulm: Diminished lung sounds bilaterally. -wheezes, -rales, -rhonchi. Symmetrical chest rise. No increase work of breathing. No respiratory distress. Cardiac: RRR, -mrg. Radial pulses intact and symmetrical. Trace pedal edema. Abdominal: soft, non-tender, non-distended, BS x 4 Skin: warm, dry, no rash Principal Diagnosis Congestive heart failure exacerbation Discharge Exam General: NAD. Cooperative. Morbidly obese. HEENT: Atraumatic, normocephalic. No JVD b/l Pulm: Slightly diminished lung sounds bilaterally but otherwise clear without focal wheezes or crackles. Symmetrical chest rise. No increase work of breathing. No respiratory distress. Cardiac: RRR, no murmurs. Radial pulses intact and symmetrical. 1+ pretibial and pedal edema further improved from day prior Abdominal: soft, nontender, nondistended, +BS Skin: warm, dry, no rash Discharge Data Allergies Allergy/AdvReac Type Severity Reaction Status Date / Time No Known Allergies Allergy Verified 12/27/21 22:39 Consultations 12/27/21 22:41 ED Decision to Admit Stat 12/28/21 01:36 Consult Cardiology Routine Ordered Studies 12/27/21 19:45 CT angio chest PE protocol Stat Hospital Course (1) Exertional dyspnea: Lenard Machado is a 56yo male with PMHx significant for non-ischemic cardiomyopathy/chronic HFrEF (last EF 40% in 09/2021), AICD, HTN, morbid obesity (BMI 51.8), COTY/OHS (on CPAP) who presented to [facility] ED on 12/27 for exertional dyspnea and orthopnea x1 week. Acute HFrEF exacerbation - Suspect 2/2 dietary non-compliance, uncontrolled OHS/COTY due to CPAP malfunction, - Echo (12/27): EF 40-45%, moderate LVF, moderate MR, moderate global hypokinesis left ventricle - CXR on admission: cardiomegaly and AICD with evidence of CHF and pulm edema - CTA chest: no PE, trace bilateral pleural effusions - 1.5L fluid restriction and 2g sodium restriction during stay, instructed on discharge - Cr wnl, 1.3 on day of discharge - Weight 156.8 to 154.8 kg today, adequate UOP 3.3L - consulted Cardiology - appreciate recs -consider addition of Jardiance which should not affect BP -restart carvedilol at half dose (12.5 bid) if BP allows. Continue carvedilol at half dose on discharge -Was transitioned back to home Bumex 2mg PO BID at time of discharge -Counseling done about dietary modification and weight monitoring on day of discharge -Discharged on home diuretic regimen, close f/u with PCP on 01/05 Hypotension, improved BP 91/60 in the ED, and patient's son reported that his BP was 70s/40s at home when he was having a headache. No reflex tachycardia which suggests that this is more chronic in nature. - BP normalized during stay - Home Losartan 25 mg daily held during stay - Losartan held on discharge- still taking carvedilol 12.5 mg BID on discharge per cardiology - Pt instructed to monitor BPs at home after discharge and until PCP f/u - Losartan to be resumed pending BPs at f/u, consider resuming regular carvedilol dose 25 mg BID if BP allows Morbid Obesity; Obesity Hypoventilation Syndrome; COTY BMI 51.8. Possible CPAP malfunction may be contributing to dyspnea/hypoxia as stated above. - CPAP HS during stay - supplemental O2 given as stated above - Consider repeat sleep study/CPAP replacement as outpatient Contaminant Gram Positive Bacteremia, source unknown -patient presented hypotensive on arrival, HRs stable; low concern for infection -blood cx PCR neg -blood cx growing bacillus species not anthracic; repeat cx neg; d/c vanc (12/30) -MRSA nares screen neg -UA neg -procal, lactate wnl -repeat CXR (12/28): cardiomegaly and central vascular congestion Ventricular tachycardia -continued home Amiodarone Gout -continued home Allopurinol Hyperlipidemia -Continued home atorvastatin (2) Hypotension: (3) Hypoxia: (4) Acute exacerbation of congestive heart failure: (5) Restrictive lung disease: (6) Sleep apnea: (7) Cardiomyopathy: (8) Morbid obesity: (9) Obstructive sleep apnea of adult: (10) AICD (automatic cardioverter/defibrillator) present: Total Time Total Time Spent Total Time Spent (In Minutes): 30 Discharge Plan Discharge Items Patient Disposition: Home - Self-Care Reason For Visit: CHF Discharge Diagnosis: Congestive heart failure exacerbation Activity: Resume your previous activity Non-emergency contact: Primary Care Provider Call non-emergency contact if: you have any medication questions, your symptoms worsen, your pain is worsening and you have a fever Follow-up/Referrals: Ravindra Moran MD [Physician] - Tamar Boss [Physician] - 01/05/22 9:00 am Diet: Low Sodium (2gm) Fluids: 1200ml (5 cups) Addchristi Attending Provider Instructions: Congestive Heart Failure: Discharge Instructions Congestive heart failure essentially means your heart is able to have a "traffic jam" of fluid that backs up into your lungs. Fluid in lungs then blocks up breathing space making you feel short of breath. In the hospital, our job is to get the fluid off so that you are able to breathe better, and then get you back on track with medication and lifestyle adjustments to keep the traffic jam from happening again. Salt (Sodium) The vast majority of people admitted to the hospital with fluid back up into the lungs get there because of too much salt in their diet The way our kidneys work: when you take a small amount of sodium, your kidneys hold onto a small amount of water. When you take a large amount of sodium, your kidneys hold onto a large amount of water. When this happens, your blood vess els get flooded, your heart gets overfilled, and the fluid backs up into your lungs. Most people know to avoid the salt shaker, but sodium is in almost anything prepackaged/prepared, as a preservative or as a flavoring agent. Most of the people we take care of who are here with congestive heart failure caused by too much sodium do not use a salt shaker at all. Get into the habit of looking at food labels, so you can see how much sodium is in the foods you eat. The most important number to look at is how much sodium is in each serving. But also notice the size of a serving. [place] will frequently make a serving size so tiny that it does not look like there is much sodium per serving, but a normal person might eat 3 or 4 servings of the food and take in a lot more sodium than they realized. Keep a "budget" of how much sodium you take in in each day. Most people stay out of trouble and stay out of the hospital as long as they stay "under budget". The majority of congestive heart failure patients do well if they take less than 2000 mg of sodium a day. Because our kidneys retain water based on how much sodium they are seeing in any given moment, it is also important to stay at less than about 500 mg in any given meal. This is because even if you stayed at less than 2000 mg of sodium, but ate it all at once, your kidneys would retain fluid at a rate as though you are taking in much more sodium than you actually are. Occasionally your doctor may specifically recommend restricting even further (such as less than 1500mg per day) so if you have been told to be even stricter with sodium, please follow that advice. -Following How You Are Doing (Wet Versus Dry) Because managing congestive heart failure is an ongoing process, it is very important to learn how to follow your signs and symptoms and track how you are doing at home. This will allow you to catch problems before they become a big deal. In general, as your health care team, we look at managing congestive heart failure chronically as a balance of being "wet" (flooded with fluid) versus being "dry" (dehydrated from treatment). Wet - signs of fluid retention that would warrant further evaluation: Check your weight daily. If your weight goes up by more than 2 pounds in 1 day, it is almost certainly fluid related. This should warrant further thought, and/or a call to your doctor Follow your breathingmost of the time, early on when fluid backs up into your lungs, you will first start to notice shortness of breath when walking, or when lying flat. If you notice either of these, this should warrant further thought, and/or a call to your doctor If you notice both an increase in weight and worsening breathing, that definitely warrants getting seen as soon as possible "Dry"while the goal of managing the disease is to keep you from getting "wet, the medications can sometimes cause a degree of dehydration. Most people with congestive heart failure need frequent lab work (basic metabolic panel). Generally when there has been a change in diuretic dosing (a change in the water pill) or any other major changes, lab work should be followed closely and more frequently afterwards. This is because lab work will frequently show early signs of dehydration before you start to feel bad. Frequent symptoms of being dehydrated include: feeling weak and lightheaded, having lower blood pressures, making less urine than usual, or having a very dry mouth. If you notice any of these signs/symptoms, and you are not due for lab work, it would be quite reasonable to call your doctor to see if lab work or a visit could be arranged. Heart Failure Management Checklist: Limit Salt (Sodium) Intake to 2000mg (2g) per day and 500mg (0.5g) per meal Check weight daily (in same clothes, without shoes) every morning Use the provided chart to enter your weight and salt intake for the day Are you too wet? If you gained 2lb or more - make sure to take your water pill (Metolazone) If your breathing is not good (you are more short of breath than usual) call your doctor regardless of weight change If you gained 2lb or more and you are short of breath, see your doctor or come to the emergency room Are you too dry? If you feel weak or lightheaded, have lower blood pressures, make less urine than usual, or have a very dry mouth, then call your doctor BLOOD PRESSURE MEDICATIONS -Please continue to measure your BP regularly every day, at least 2x per day. If your BPs start to become 130s-140s / 90s - 100s or higher or you begin to experience symptoms such as headache or chest pain, then you should resume your BP medication. This includes the carvedilol half dose twice a day (12.5 mg twice daily) and the losartan half dose daily (25 mg). -You are scheduled to see Dr. Boss at the [facility] on Friday 01/05 at 9:00 AM for follow-up. At this visit, please ask about when you should resume your blood pressure medication Pending Studies at Discharge: No Stand-Alone Forms: My [facility] Medications and DC Order Prescriptions: Continued (DME) CPAP Supplies Misc See Rx Instructions .MEDSUPPLY Qty: 1 0RF Rx Instructions: CPAP supplies. G47.33 (DME) Auto Titrating CPAP Misc See Rx Instructions .MEDSUPPLY Qty: 1 0RF Rx Instructions: Auto PAP with 10-20mm H20. Lifetime usage. G47.33 amiodarone 400 mg tablet 200 mg PO DAILY Qty: 45 3RF carvedilol 25 mg tablet 25 mg PO BID Qty: 180 3RF cholecalciferol (vitamin D3) 50 mcg (2,000 unit) capsule 50 mcg PO DAILY fluocinonide 0.05 % cream 1 applic topical BID Qty: 120 1RF Rx Instructions: Apply to areas of the trunk and extremities twice daily x 3 weeks as directed. acetaminophen 500 mg tablet 500 mg PO Q4H PRN (Reason: Fever Or Pain) omega-3 fatty acids 1,250 mg capsule 1,250 mg PO DAILY potassium chloride [Klor-Con M20] 20 mEq tablet,ER particles/crystals 40 meq PO TID multivitamin Tablet 1 tab PO DAILY bumetanide 2 mg tablet 2 mg PO BID Qty: 60 3RF atorvastatin 80 mg tablet 80 mg PO HS losartan 100 mg tablet 50 mg PO DAILY Qty: 30 2RF metolazone 5 mg tablet 5 mg PO DAILY PRN (Reason: WT GAIN) allopurinol 300 mg tablet 300 mg PO DAILY Discharge Orders: Discharge Order (Routine); Ordered 01/02/22 Ordered By: Marcie Carson/Other Patient Handouts: Low-Salt Choices, Eating Heart-Healthy Foods Admission Data Admit Date/Time: 12/27/21 23:34 Attending Provider: Juve Mora Admit Provider: Saul Stallings Primary Care Provider: Saul Melgar Other Providers: Fahad Prado ; Ravindra Moran ; Megan Rodriguez Other Interventions: Discharge Summary Assessment (RN) Last Done: 01/02/22 13:25 Supervising Physician Co-Signing Physician Notes Attending attestation Pt seen and examined in concert with Dr. Roe. In agreement with the documented findings as noted in the resident documentation with any exceptions or additions as noted here. Approaching baseline for breathing while at rest and with light activity with ongoing improvement in B/L LE swelling. Ready for discharge. Reviewed diet which presently including ++ kielbasa and deli meats On examination, S1/S2 nl RRR no MCG. CTAB. Abd NT/ND BS+ve. Trace pitting edema to the midshin bilaterally while sitting HFrEF with acute exacerbation - continue 12.5mg BID carvedilol and monitor BP at home. Resume home bumetanide dosing. 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 Total attending physician time spent on this patient's care on the day of discharge: 45 minutes.
== END 2022-01-02 16:44 | disposition home or self-care (01) | DRG 291 ==
LOC: ED 19:03 → SUATTDRO 23:34 → 2S 23:34 → 2N 12-30 15:36
DX: E78.5 Hyperlipidemia, unspecified; R06.09 Other forms of dyspnea; R78.81 Bacteremia; I47.2 Ventricular tachycardia; I42.9 Cardiomyopathy, unspecified; J81.1 Chronic pulmonary edema; I34.0 Nonrheumatic mitral (valve) insufficiency; I95.9 Hypotension, unspecified; I11.0 Hypertensive heart disease with heart failure; I50.23 Acute on chronic systolic (congestive) heart failure; Z87.891 Personal history of nicotine dependence; Z95.810 Presence of automatic (implantable) cardiac defibrillator; M10.9 Gout, unspecified; E66.2 Morbid (severe) obesity with alveolar hypoventilation

== ENCOUNTER 2022-04-06 21:09 | Observation (INO) ==
[2022-04-06 21:46] LABS: Basophils # (auto) 0.05 K/uL (0-0.2); Basophils % (auto) 0.5 %; Eosinophils # (auto) 0.13 K/uL (0-0.50); Eosinophils % (auto) 1.2 %; Hematocrit (blood only) 38.3 % (40.1-51.0); Hemoglobin 13.6 g/dl (14.0-18.0); Immature Granulocytes # (auto) 0.04 K/uL (0.00-0.02); Immature Granulocytes % (auto) 0.4 %; Lymphocytes # (auto) 1.13 K/uL (1.2-3.4); Lymphocytes % (auto) 10.6 %; Mean Corpuscular Hemoglobin 30.5 pg (25.0-34.0); Mean Corpuscular Hgb Conc 35.5 g/dL (32.0-36.0); Mean Corpuscular Volume 85.9 fL (80.0-100.0); Mean Platelet Volume 9.7 fL (9.4-12.4); Monocytes # (auto) 0.88 K/uL (0.24-0.82); Monocytes % (auto) 8.3 %; Platelet Count 266 K/uL (130-400); RDW Coefficient of Variation 17.9 % (11.5-14.5); RDW Standard Deviation 55.2 fL (36.4-46.3); Red Blood Count 4.46 M/uL (4.63-6.08); White Blood Count 10.63 K/ul (4.8-10.8)
[2022-04-06 22:00] LABS: INR 1.1 (0.9-1.1); Partial Thromboplastin Time 27.3 Seconds (21.0-31.0); Prothrombin Time 11.3 Seconds (9.0-12.0)
[2022-04-06 22:47] LABS: Albumin Globulin Ratio 1.2 (0.9-2); Albumin Level 4.2 gm/dl (3.4-5.0); BUN Creatinine Ratio 26.5 (10-20); Calcium 9.9 mg/dl (8.5-10.1); Creatinine Clr Calc Pharmacy 78.5 ml/min; Est GFR (African American) 59.4 ml/min; Est GFR (Non-African American) 51.3 ml/min; Globulin 3.4 gm/dl (2.5-4.0); Potassium 3.2 mmol/L (3.5-5.1); Total Protein 7.6 gm/dl (6.0-8.3); Troponin I High Sensitivity 50.4 pg/ml (0-20)
--- NOTE | 2022-04-06 23:36 | Emergency Department Note ---
History of Present Illness General Chief complaint: Tachycardia Stated complaint: CHEST PAIN, SOB,PAPILTATION Time Seen by Provider: 04/06/22 23:20 Source: patient Mode of arrival: EMS Limitations: no limitations History of Present Illness Provider complaint: Defibrillator firing, chest fluttering Maximum Pain Intensity: 7 This is a 56-year-old male presents emergency department due to concern for sense of fluttering in the chest, and his defibrillator firing. He states he has had intermittent fluttering over the last several days. Patient with extensive cardiac history including prior cardiac arrest. Patient does follow with cardiology routinely, Dr. Moran. He states occasionally has fluttering that becomes fibrillation and he knows he is going to be "popped". He states he develops a sense of pressure, lightheadedness, shortness of breath. He denies any recent illness or infection including no fevers or chills. He states his metoprolol was increased the last time he saw cardiology however no other more recent changes to his medications. He states the last time he had similar episodes such as this were the beginning of February and he was found to have "fluid around his heart". Nursing staff did interrogate patient's device prior to my evaluation at bedside. Home Medications Medication Instructions Recorded Confirmed Type acetaminophen 500 mg tablet 500 mg PO Q4H PRN Fever Or Pain 03/28/19 04/07/22 History omega-3 fatty acids 1,250 mg 1,250 mg PO DAILY 03/28/19 04/07/22 History capsule potassium chloride 20 mEq 40 meq PO TID 06/03/19 04/07/22 History tablet,extended release(part/cryst) (Klor-Con M) multivitamin 1 tab PO DAILY 12/01/19 04/07/22 History Auto Titrating CPAP #1 ea 03/16/20 02/25/22 Rx CPAP Supplies #1 ea 03/16/20 02/25/22 Rx bumetanide 2 mg tablet 2 mg PO BID #60 tabs 10/05/20 04/07/22 Rx cholecalciferol (vitamin D3) 50 50 mcg PO DAILY 04/05/21 04/07/22 History mcg (2,000 unit) capsule atorvastatin 80 mg tablet 80 mg PO HS 10/13/21 04/07/22 History allopurinol 300 mg tablet 300 mg PO DAILY 12/27/21 04/07/22 History metolazone 5 mg tablet 5 mg PO DAILY PRN WT GAIN 12/27/21 04/07/22 History carvedilol 6.25 mg tablet 6.25 mg PO BID #180 tabs 02/01/22 04/07/22 Rx amiodarone 400 mg tablet 400 mg PO QAM 04/07/22 04/07/22 History aspirin 81 mg tablet,delayed 81 mg PO DAILY 04/07/22 04/07/22 History release fluocinonide 0.05 % topical cream 1 applic topical BID PRN Skin 04/07/22 04/07/22 History Irritation zinc acetate 25 mg (zinc) capsule 0 mg PO DAILY 04/07/22 04/07/22 History Allergies Allergy/AdvReac Type Severity Reaction Status Date / Time No Known Allergies Allergy Verified 03/28/22 14:43 Past Med/Surg History Medical History (Updated 04/08/22 @ 04:11 by Nyla Vasques DO) Cardiomyopathy, nonischemic 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 Dyslipidemia Elevated bilirubin Former smoker Hemoptysis Metabolic syndrome Non-rheumatic mitral regurgitation Obesity, morbid, BMI 40.0-49.9 Obstructive sleep apnea of adult Shortness of breath Systolic congestive heart failure Ventricular tachycardia (paroxysmal) Social History Smoking Status: Current every day smoker Tobacco Type: Cigarettes Second Hand Exposure: No; Hx Alcohol Use: Yes Alcohol type: beer Hx Substance Use: Yes Last Used Substance: Unknown Substance Use Type Other:: medical marijuana Preferred Language: Latvian Communication Ability: Effective Jewel Supervisor Required: No Beliefs That Will Affect Care: None Current Living Situation: Alone 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 Feels Safe at Home: Yes Assistive Devices: None Review of Systems A total of 10 systems reviewed and were otherwise negative All systems reviewed & are unremarkable except as noted in HPI & below Physical Exam Vital Signs Vital Signs - 24 hr 04/06/22 21:10 04/06/22 23:04 Temperature 36.5 C Temperature Source Temporal Artery Scan Pulse Rate 84 Respiratory Rate 16 Respiratory Effort / Characteristics Non-Labored Spontaneous Respiratory Depth Normal Respiratory Pattern Regular Blood Pressure 148/76 H Blood Pressure Mean 100 Pulse Oximetry 93 94 Oxygen Delivery Method Room Air Room Air Sepsis Recent Fever Within 48 Hours No Sepsis New/Unexplained Change in Mental Status No Sepsis Action Taken by Nursing No Action Required GENERAL: alert, well appearing, well nourished, no distress, non-toxic, BMI>47 EYE EXAM: normal conjunctiva, PERRL and EOM's grossly intact OROPHARYNX: no exudate, no erythema, lips, buccal mucosa, and tongue normal and mucous membranes are moist NECK: supple, no nuchal rigidity, no adenopathy, non-tender LUNGS: Clear to auscultation. Normal chest wall mechanics, no w/r/r HEART: no murmurs, S1 normal and S2 normal, well-healed incision from pacemaker/AICD placement left anterior superior chest wall ABDOMEN: abdomen soft, non-tender, normo-active bowel sounds, no masses, no rebound or guarding. BACK: Back is symmetrical on inspection and there is no deformity, no midline tenderness, no CVA tenderness. SKIN: no rashes and no bruising UPPER EXTREMITIES: upper extremities are grossly normal. FROM, nml pulses b/l. LOWER EXTREMITIES: No pitting edema. FROM, nml pulses b/l. NEURO EXAM: Normal sensorium, cranial nerves II-XII grossly intact, normal speech, no gross weakness of arms, no gross weakness of legs. Gross sensation intact. Course Course 0011: Discussed with [employer] Carlos rowland who confirms patient was defibrillated for an episode of nonsustained ventricular tachycardia. He has been having in termittent episodes of VT recently also. Administered Medications Allopurinol (Allopurinol 300 Mg Tab) 300 mg PO DAILY COUNT INCLUDES THE [facility] Stop: 05/07/22 08:59 Last Admin: 04/07/22 09:09 Dose: 300 mg Documented By: BRYANT Amiodarone HCl (Amiodarone 200 Mg Tab) 400 mg PO QAM COUNT INCLUDES THE [facility] Stop: 05/07/22 08:59 Last Admin: 04/07/22 09:09 Dose: 400 mg Documented By: BRYANT Aspirin (Aspirin 81 Mg Ectab) 81 mg PO DAILY COUNT INCLUDES THE [facility] Stop: 05/07/22 08:59 Last Admin: 04/07/22 09:10 Dose: 81 mg Documented By: BRYANT Atorvastatin Calcium (Atorvastatin 40 Mg Tab) 80 mg PO HS COUNT INCLUDES THE [facility] Stop: 05/07/22 20:59 Last Admin: 04/07/22 20:00 Dose: 80 mg Documented By: MARCOS Bumetanide (Bumetanide 1 Mg Tab) 2 mg PO BID17 SANDHYA Stop: 05/07/22 08:59 Last Admin: 04/07/22 17:03 Dose: 2 mg Documented By: Admin: 04/07/22 09:10 Dose: 2 mg Documented By: BRYANT Carvedilol (Carvedilol 6.25 Mg Tab) 6.25 mg PO BID SANDHYA Stop: 05/07/22 08:59 Last Admin: 04/07/22 19:59 Dose: 6.25 mg Documented By: Admin: 04/07/22 09:11 Dose: 6.25 mg Documented By: BRYANT Insulin Aspart (Insulin Aspart Per Unit) 0 units SC ACHS SANDHYA Stop: 05/07/22 16:29 Last Admin: 04/07/22 20:10 Dose: 2 units Documented By: MARCOS Co-signed By: TOM Admin: 04/07/22 17:12 Dose: 7 units Documented By: MARILU Co-signed By: NATHANIEL Insulin Glargine (Lantus Per Unit Charge) 5 units SQ BID SANDHYA Stop: 05/07/22 11:59 Last Admin: 04/07/22 20:11 Dose: 5 units Documented By: MARCOS Co-signed By: TOM Admin: 04/07/22 12:27 Dose: 5 units Documented By: DWAYNEV Co-signed By: LYNN Potassium Chloride (Potassium Chloride Crtab 20 Meq Tabcr) 60 meq PO HS SANDHYA Stop: 05/07/22 20:59 Last Admin: 04/07/22 20:00 Dose: 60 meq Documented By: MARCOS Spironolactone (Spironolactone 12.5 Mg Tab) 12.5 mg PO DAILY SANDHYA Stop: 05/07/22 15:14 Last Admin: 04/07/22 17:04 Dose: 12.5 mg Documented By: MARILU Discontinued Medications Magnesium Sulfate/Dextrose (Magnesium Sulfate / D5w) 1 gm in 100 mls @ 100 mls/hr IV NOW STA Stop: 04/07/22 02:11 Last Infusion: 04/07/22 03:00 Dose: 0 mls/hr Documented By: MWNikki Admin: 04/07/22 01:37 Dose: 100 mls/hr Documented By: ALYCIA Magnesium Sulfate/Dextrose (Magnesium Sulfate / D5w) 1 gm in 100 mls @ 50 mls/hr IV Q2H SANDHYA Stop: 04/07/22 06:59 Last Infusion: 04/07/22 08:00 Dose: 0 mls/hr Documented By: Admin: 04/07/22 05:02 Dose: 50 mls/hr Documented By: NATHANIEL(2) Infusion: 04/07/22 05:02 Dose: 50 mls/hr Documented By: NATHANIEL(2) Admin: 04/07/22 03:26 Dose: 50 mls/hr Documented By: NATHANIEL(2) Insulin Aspart (Insulin Aspart Per Unit) 0 units SC NOW STA Stop: 04/07/22 13:06 Last Admin: 04/07/22 13:53 Dose: 8 units Documented By: MANAV Co-signed By: FAMILIA Insulin Human Regular (Novolin-R Insulin Per Unit Charge) 6 units SC NOW STA Stop: 04/07/22 00:23 Last Admin: 04/07/22 00:36 Dose: 6 units Documented By: ALYCIA Co-signed By: JOE Potassium Chloride (Potassium Chloride Crtab 20 Meq Tabcr) 40 meq PO NOW STA Stop: 04/07/22 00:23 Last Admin: 04/07/22 00:36 Dose: 40 meq Documented By: ALYCIA Potassium Chloride (Potassium Chloride Crtab 20 Meq Tabcr) 40 meq PO TID SANDHYA Stop: 05/07/22 08:59 Last Admin: 04/07/22 13:54 Dose: 40 meq Documented By: Admin: 04/07/22 09:11 Dose: 40 meq Documented By: BRYANT Potassium Chloride (Potassium Chloride Crtab 20 Meq Tabcr) 20 meq PO NOW STA Stop: 04/07/22 03:01 Last Admin: 04/07/22 03:26 Dose: 20 meq Documented By: NATHANIEL(2) Sodium Chloride (Sodium Chloride 0.65% Na Soln 45 Ml ([place])) Confirm Admin istered Dose 225 sprays .ROUTE .STK-MED ONE Stop: 04/07/22 05:33 Last Admin: 04/07/22 05:37 Dose: 225 sprays Documented By: NATHANIEL(2) Medical Decision Making Differential Diagnosis Differential diagnoses includes but is not limited to acute coronary syndrome, myocardial infarction, pericarditis, pulmonary embolus, aortic dissection, pneumonia, pneumothorax, musculoskeletal, shingles, esophageal. Medical Records Attestation: I reviewed the patient's medical records. Home Medications Current Medication List: was personally reviewed by me Laboratory Data Attestation: I reviewed the patient's lab results. Result diagrams: 04/06/22 21:30 04/07/22 17:55 Lab Results 04/06/22 04/06/22 04/06/22 Range/Units 21:30 21:30 21:30 WBC 10.63 (4.8-10.8) K/ul RBC 4.46 L (4.63-6.08) M/uL Hgb 13.6 L (14.0-18.0) g/dl Hct 38.3 L (40.1-51.0) % MCV 85.9 (80.0-100.0) fL MCH 30.5 (25.0-34.0) pg MCHC 35.5 (32.0-36.0) g/dL RDW Std Deviation 55.2 H (36.4-46.3) fL RDW Coeff of Kylee 17.9 H (11.5-14.5) % Plt Count 266 (130-400) K/uL MPV 9.7 (9.4-12.4) fL Immature Gran % (Auto) 0.4 % Neut % (Auto) 79.0 % Lymph % (Auto) 10.6 % [place] % (Auto) 8.3 % Eos % (Auto) 1.2 % Baso % (Auto) 0.5 % Neut # (Auto) 8.40 H (1.4-6.5) K/uL Lymph # (Auto) 1.13 L (1.2-3.4) K/uL [place] # (Auto) 0.88 H (0.24-0.82) K/uL Eos # (Auto) 0.13 (0-0.50) K/uL Baso # (Auto) 0.05 (0-0.2) K/uL Immature Gran # (Auto) 0.04 H (0.00-0.02) K/uL PT 11.3 (9.0-12.0) Seconds INR 1.1 (0.9-1.1) APTT 27.3 (21.0-31.0) Seconds PTT Ratio 1.0 Sodium 138 (136-145) mmol/L Potassium 3.2 L (3.5-5.1) mmol/L Chloride 96 L (98-107) mmol/L Carbon Dioxide 29 (21-32) mmol/L Anion Gap 13 H (3-11) BUN 40 H (6-23) mg/dl Creatinine 1.51 H (0.6-1.4) mg/dl Est Cr Clr Drug Dosing 78.5 ml/min Est GFR ( Amer) 59.4 ml/min Est GFR (Non-Af Amer) 51.3 ml/min BUN/Creatinine Ratio 26.5 H (10-20) Glucose 315 H* (70-99(Fasting)) mg/dl Calcium 9.9 (8.5-10.1) mg/dl Magnesium (1.7-2.4) mg/dl Total Bilirubin 4.0 H (0.2-1.0) mg/dl AST 27 (13-39) U/L ALT 21 (7-52) U/L Alkaline Phosphatase 76 (34-104) U/L Troponin I High Sens 50.4 H* D (0-20) pg/ml B-Natriuretic Peptide (0-100) pg/ml Total Protein 7.6 (6.0-8.3) gm/dl Albumin 4.2 (3.4-5.0) gm/dl Globulin 3.4 (2.5-4.0) gm/dl Albumin/Globulin Ratio 1.2 (0.9-2) TSH (0.300-4.500) uIu/ml Free T4 (0.61-1.60) ng/dl SARS-CoV-2, RNA, NAAT (NEGATIVE) 04/06/22 04/06/22 04/06/22 Range/Units 21:30 21:30 23:35 WBC (4.8-10.8) K/ul RBC (4.63-6.08) M/uL Hgb (14.0-18.0) g/dl Hct (40.1-51.0) % MCV (80.0-100.0) fL MCH (25.0-34.0) pg MCHC (32.0-36.0) g/dL RDW Std Deviation (36.4-46.3) fL RDW Coeff of Kylee (11.5-14.5) % Plt Count (130-400) K/uL MPV (9.4-12.4) fL Immature Gran % (Auto) % Neut % (Auto) % Lymph % (Auto) % [place] % (Auto) % Eos % (Auto) % Baso % (Auto) % Neut # (Auto) (1.4-6.5) K/uL Lymph # (Auto) (1.2-3.4) K/uL [place] # (Auto) (0.24-0.82) K/uL Eos # (Auto) (0-0.50) K/uL Baso # (Auto) (0-0.2) K/uL Immature Gran # (Auto) (0.00-0.02) K/uL PT (9.0-12.0) Seconds INR (0.9-1.1) APTT (21.0-31.0) Seconds PTT Ratio Sodium (136-145) mmol/L Potassium (3.5-5.1) mmol/L Chloride (98-107) mmol/L Carbon Dioxide (21-32) mmol/L Anion Gap (3-11) BUN (6-23) mg/dl Creatinine (0.6-1.4) mg/dl Est Cr Clr Drug Dosing ml/min Est GFR ( Amer) ml/min Est GFR (Non-Af Amer) ml/min BUN/Creatinine Ratio (10-20) Glucose (70-99(Fasting)) mg/dl Calcium (8.5-10.1) mg/dl Magnesium 1.6 L (1.7-2.4) mg/dl Total Bilirubin (0.2-1.0) mg/dl AST (13-39) U/L ALT (7-52) U/L Alkaline Phosphatase (34-104) U/L Troponin I High Sens (0-20) pg/ml B-Natriuretic Peptide (0-100) pg/ml Total Protein (6.0-8.3) gm/dl Albumin (3.4-5.0) gm/dl Globulin (2.5-4.0) gm/dl Albumin/Globulin Ratio (0.9-2) TSH 0.197 L (0.300-4.500) uIu/ml Free T4 1.50 (0.61-1.60) ng/dl SARS-CoV-2, RNA, NAAT NEGATIVE (NEGATIVE) 04/07/22 Range/Units 00:01 WBC (4.8-10.8) K/ul RBC (4.63-6.08) M/uL Hgb (14.0-18.0) g/dl Hct (40.1-51.0) % MCV (80.0-100.0) fL MCH (25.0-34.0) pg MCHC (32.0-36.0) g/dL RDW Std Deviation (36.4-46.3) fL RDW Coeff of Kylee (11.5-14.5) % Plt Count (130-400) K/uL MPV (9.4-12.4) fL Immature Gran % (Auto) % Neut % (Auto) % Lymph % (Auto) % [place] % (Auto) % Eos % (Auto) % Baso % (Auto) % Neut # (Auto) (1.4-6.5) K/uL Lymph # (Auto) (1.2-3.4) K/uL [place] # (Auto) (0.24-0.82) K/uL Eos # (Auto) (0-0.50) K/uL Baso # (Auto) (0-0.2) K/uL Immature Gran # (Auto) (0.00-0.02) K/uL PT (9.0-12.0) Seconds INR (0.9-1.1) APTT (21.0-31.0) Seconds PTT Ratio Sodium (136-145) mmol/L Potassium (3.5-5.1) mmol/L Chloride (98-107) mmol/L Carbon Dioxide (21-32) mmol/L Anion Gap (3-11) BUN (6-23) mg/dl Creatinine (0.6-1.4) mg/dl Est Cr Clr Drug Dosing ml/min Est GFR ( Amer) ml/min Est GFR (Non-Af Amer) ml/min BUN/Creatinine Ratio (10-20) Glucose (70-99(Fasting)) mg/dl Calcium (8.5-10.1) mg/dl Magnesium (1.7-2.4) mg/dl Total Bilirubin (0.2-1.0) mg/dl AST (13-39) U/L ALT (7-52) U/L Alkaline Phosphatase (34-104) U/L Troponin I High Sens (0-20) pg/ml B-Natriuretic Peptide 108 H (0-100) pg/ml Total Protein (6.0-8.3) gm/dl Albumin (3.4-5.0) gm/dl Globulin (2.5-4.0) gm/dl Albumin/Globulin Ratio (0.9-2) TSH (0.300-4.500) uIu/ml Free T4 (0.61-1.60) ng/dl SARS-CoV-2, RNA, NAAT (NEGATIVE) Imaging Data My Impression: X-ray: I interpreted the following studies. Chest: A single view study of the chest was reviewed and was negative for focal infiltrate, effusion, pulmonary edema, or wide mediastinum. Cardiomegaly noted, pacemaker/AICD noted. ECG Data Attestation: I personally reviewed and interpreted this ECG as follows: Indication: + chest pain Rate (beats per minute): 82 Rhythm: + normal sinus ECG Intervals/blocks: + Normal QRS and + Normal QT ECG [place]: + Normal ECG ST segments: + Nonspecific ST abnormalities MDM Narrative An order was placed for continuous cardiac monitoring. The monitor shows a rate of _88_ with _normal sinus_ rhythm. This is a 56-year-old male who presents due to concern for palpitations, chest pain, as well as his defibrillator firing this evening. Patient with extensive cardiac history including cardiomyopathy and prior cardiac arrest which led to the initial placement of his pacer/AICD. Patient admits to increased palpitations recently and syncopal event this evening when his defibrillator fired. Patient presented on day of high volume and acuity, labs been started by nursing staff prior to my evaluation and device interrogated. Patient had minimal sense of palpitations which she described as fluttering during my exam, intermittent PVCs noted. Patient otherwise afebrile and hemodynamically stable. Labs revealed hypokalemia and hypomagnesemia. Given extensive heart history, he was started on repletion while in the emergency room. Due to significant cardiac history, ventricular tachycardia is noted on device interrogation and confirmed by [employer] customer success representative, patient admitted to the hospitalist service for additional evaluation and management. Impression & Plan Chest pain, Ventricular tachycardia, Palpitation, Hypokalemia, Hypomagnesemia Discharge Plan Visit Data Chief Complaint: Tachycardia Stated Complaint: CHEST PAIN, SOB,PAPILTATION ED Provider: Nyla Vasques Discharge Problem: Chest pain, Ventricular tachycardia, Palpitation, Hypokalemia, Hypomagnesemia Patient Disposition: Admitted As Inpatient Discharge Instructions Interventions: ED Discharge Assessment Last Done: 04/07/22 03:01
[2022-04-07] MEDS ORDERED: POTASSIUM CHLORIDE CRTAB 20 MEQ TABCR PO STA ×2 (00:22→03:00)
[2022-04-07] MEDS ORDERED: NovoLIN-R INSULIN PER UNIT CHARGE SC STA (00:22)
[2022-04-07 00:33] LABS: Thyroid Stimulating Hormone 0.197 uIu/ml (0.300-4.500)
[2022-04-07] MEDS ORDERED: MAGNESIUM SULFATE / D5W 1 GM/100 ML BAG IV STA (01:12)
--- NOTE | 2022-04-07 01:42 | History & Physical Report ---
Date of Service April 07, 2022 Assessment & Plan (1) Ventricular tachycardia: Plan: 56yo male with history of NICM, prior cardiac arrest s/p dual chamber AICD placement presents with AICD discharge secondary to VT. Patient presently in NSR, minimal ectopy noted on monitor. Workup with low Mg and K. Patient does report diarrhea this AM, possibly enough to deplete electrolytes? Patient is also on Bumex 2mg po BID Does not appear to be in decompensated CHF Has mild elevation of troponin - expected following AICD discharge. He denies chest pain or exertional symptoms. -Admit to PCU -Electrolyte repletion - 60mEq K given, 4gm Mg ordered. Repeat chemistry in AM -Trend troponin -Continue Amiodarone 400mg po daily -Continue Carvedilol 6.25mg po BID -Cardiology consultation appreciated (2) Obstructive sleep apnea of adult: Plan: Patient reports compliance with his CPAP. -Continue CPAP qHS -Patient brought his home device and may use it while inpatient (3) Dyslipidemia: Plan: Chronic. Stable on medications -Continue Atorvastatin 80mg po qHS (4) Systolic congestive heart failure: Plan: Appears to be compensated overall -Continue Carvedilol -Continue Bumex 2mg po BID (5) Elevated random blood glucose level: Plan: Elevated blood sugar of 315 on arrival. No history of DM. He does not endorse symptoms consistent with DM - no polyuria, polydipsia, polyphagia, visual di sturbances or weight loss. Was given insulin 6u in ER -Follow blood sugars -Check HgbA1C History of Present Illness Chief Complaint: AICD discharge Primary Care Provider: Tamar Boss Lenard Machado is a pleasant 56yo male with history of non-ischemic dilated cardiomyopathy (Last echo 12/28/21 with moderately dilated LV with concentric LVH, EF of 40-45%. Moderate global hypokinesis of the LV). History of cardiac arrest 01/11/2016 s/p resuscitation, therapeutic hypothermia and placement of dual chamber AICD. Patient follows with Cardiology - Dr. Moran, last seen on 02/25/22. He reports increased frequency of palpitations ongoing for the last two days. He participated in his 4th session of cardiac rehabilitation today. He reports experiencing frequent palpitations throughout the day with some associated shortness of breath. At 17:00 he was in his parked car speaking with his cousin when he had an AICD discharge. He briefly passed out and woke up shaking, he feels secondary to an adrenaline cuevas. He came to the ER for further evaluation. Device interrogation completed and revealed a shock delivery for VT. Patient denies fever. He was having some chills earlier this evening. He has fairly constant chest pressure at baseline but does not experience any exertional symptoms. He denies SOB, cough, wheeze. Denies abdominal pain or nausea. He did have some diarrhea this AM. He reports eating a lot of fruit today - blueberries, apples, strawberries as well as two pieces of pizza. His blood sugar is high in the ER but he denies diabetic symptoms - no polyuria, polydipsia, visual changes, weight loss Recent medication changes include increase in Amiodarone from 200mg to 400mg as well as decrease in Carvedilol to 6.25. Losartan has also been discontinued. ER Course: KCl 60mEq Insulin 6u SC Magnesium 2gm IV Allergies Allergy/AdvReac Type Severity Reaction Status Date / Time No Known Allergies Allergy Verified 03/28/22 14:43 Home Medications Medication Instructions Recorded Confirmed Type acetaminophen 500 mg tablet 500 mg PO Q4H PRN Fever Or Pain 03/28/19 04/07/22 History omega-3 fatty acids 1,250 mg 1,250 mg PO DAILY 03/28/19 04/07/22 History capsule potassium chloride 20 mEq 40 meq PO TID 06/03/19 04/07/22 History tablet,extended release(part/cryst) (Klor-Con M) multivitamin 1 tab PO DAILY 12/01/19 04/07/22 History Auto Titrating CPAP #1 ea 03/16/20 02/25/22 Rx CPAP Supplies #1 ea 03/16/20 02/25/22 Rx bumetanide 2 mg tablet 2 mg PO BID #60 tabs 10/05/20 04/07/22 Rx cholecalciferol (vitamin D3) 50 50 mcg PO DAILY 04/05/21 04/07/22 History mcg (2,000 unit) capsule atorvastatin 80 mg tablet 80 mg PO HS 10/13/21 04/07/22 History allopurinol 300 mg tablet 300 mg PO DAILY 12/27/21 04/07/22 History metolazone 5 mg tablet 5 mg PO DAILY PRN WT GAIN 12/27/21 04/07/22 History carvedilol 6.25 mg tablet 6.25 mg PO BID #180 tabs 02/01/22 04/07/22 Rx amiodarone 400 mg tablet 400 mg PO QAM 04/07/22 04/07/22 History aspirin 81 mg tablet,delayed 81 mg PO DAILY 04/07/22 04/07/22 History release fluocinonide 0.05 % topical cream 1 applic topical BID PRN Skin 04/07/22 04/07/22 History Irritation zinc acetate 25 mg (zinc) capsule 0 mg PO DAILY 04/07/22 04/07/22 History Past Med/Surg History Medical History (Updated 04/07/22 @ 03:40 by Reva Logan DO) Cardiomyopathy, nonischemic 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 Dyslipidemia Elevated bilirubin Former smoker Hemoptysis Metabolic syndrome Non-rheumatic mitral regurgitation Obesity, morbid, BMI 40.0-49.9 Obstructive sleep apnea of adult Shortness of breath Systolic congestive heart failure Ventricular tachycardia (paroxysmal) Social History Smoking Status: Never smoker Tobacco Type: Cigarettes Second Hand Exposure: No; Hx Alcohol Use: Yes Alcohol type: beer Hx Substance Use: Yes Last Used Substance: Unknown Substance Use Type Other:: medical marijuana Preferred Language: Tunisian Communication Ability: Effective Clinical Study Manager Required: No Beliefs That Will Affect Care: Sabianism Sabianism Beliefs: Scientology Current Living Situation: Alone 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 Feels Safe at Home: Yes Assistive Devices: Cane and CPAP Review of Systems Review of Systems: All systems reviewed & are unremarkable except as noted in HPI & below Physical Exam Physical Exam: General: patient resting comfortably, NAD, non-toxic in appearance, AA&O x 4 Skin: warm, dry, intact, no rashes or lesions HEENT: NC/AT, PERRL, EOMI, anicteric sclera, conjunctiva without injection, external ear normal to inspection and nontender, nares patent, moist mucus membranes, dentition intact, no oropharyngeal lesions, neck supple, trachea midline, no LAD, no thyromegaly, no JVD Heart: +S1/S2, regular, no m/r/g Lungs: equal air entry bilaterally, no rales/rhonchi/wheezes Abd: +BS, soft, NT/ND, no masses/organomegaly/ascites Ext: warm, 2+ pulses in UE/LE bilaterally, no clubbing/cyanosis or edema Neuro: nonfocal, patient AA&O x 4, speech intact, no facial droop, moving all extremities on command with equal strength 5/5 Results & Data Results & Data ([facility]) Vital Signs (Past 12 Hours) Vital Signs Temp Pulse Resp BP Pulse Ox O2 Del Method 04/06/22 23:04 94 Room Air 04/06/22 21:10 36.5 C 84 16 148/76 H 93 Room Air Laboratory Results Laboratory Results WBC 10.63 K/ul (4.8-10.8) 04/06/22 21: RBC 4.46 M/uL (4.63-6.08) L 04/06/22 21:30 Hgb 13.6 g/dl (14.0-18.0) L 04/06/22: Hct 38.3 % (40.1-51.0) L 04/06/22 21: MCV 85.9 fL (80.0-100.0) 04/06/22 21:30 MCH 30.5 pg (25.0-34.0) 04/06/22 21: MCHC 35.5 g/dL (32.0-36.0) 04/06/22 21:30 RDW Std Deviation 55.2 fL (36.4-46.3) H 04/06/22: RDW Coeff of Kylee 17.9 % (11.5-14.5) H 04/06/22: Plt Count 266 K/uL (130-400) 04/06/22 21:30 MPV 9.7 fL (9.4-12.4) 04/06/22: Immature Gran % (Auto) 0.4 % 04/06/22: Neut % (Auto) 79.0 % 04/06/22 21:30 Lymph % (Auto) 10.6 % 04/06/22: [place] % (Auto) 8.3 % 04/06/22: Eos % (Auto) 1.2 % 04/06/22: Baso % (Auto) 0.5 % 04/06/22 21:30 Neut # (Auto) 8.40 K/uL (1.4-6.5) H 04/06/22 21:30 Lymph # (Auto) 1.13 K/uL (1.2-3.4) L 04/06/22 21:30 [place] # (Auto) 0.88 K/uL (0.24-0.82) H 04/06/22 21:30 Eos # (Auto) 0.13 K/uL (0-0.50) 04/06/22 21:30 Baso # (Auto) 0.05 K/uL (0-0.2) 04/06/22:30 Immature Gran # (Auto) 0.04 K/uL (0.00-0.02) H 04/06/22:30 PT 11.3 Seconds (9.0-12.0) 04/06/22:30 INR 1.1 (0.9-1.1) 04/06/22:30 APTT 27.3 Seconds (21.0-31.0) 04/06/22 21: PTT Ratio 1.0 04/06/22 21:30 Sodium 138 mmol/L (136-145) 04/06/22 21:30 Potassium 3.2 mmol/L (3.5-5.1) L 04/06/22:30 Chloride 96 mmol/L (98-107) L 04/06/22 21:30 Carbon Dioxide 29 mmol/L (21-32) 04/06/22:30 Anion Gap 13 (3-11) H 04/06/22:30 BUN 40 mg/dl (6-23) H 04/06/22 21:30 Creatinine 1.51 mg/dl (0.6-1.4) H 04/06/22 21:30 Est Cr Clr Drug Dosing 78.5 ml/min 04/06/22 21:30 Est GFR ( Amer) 59.4 ml/min 04/06/22 21:30 Est GFR (Non-Af Amer) 51.3 ml/min 04/06/22 21:30 BUN/Creatinine Ratio 26.5 (10-20) H 04/06/22 21:30 Glucose 315 mg/dl (70-99(Fasting)) H* 04/06/22 21:30 Calcium 9.9 mg/dl (8.5-10.1) 04/06/22 21:30 Magnesium 1.6 mg/dl (1.7-2.4) L 04/06/22 21:30 Total Bilirubin 4.0 mg/dl (0.2-1.0) H 04/06/22 21:30 AST 27 U/L (13-39) 04/06/22 21:30 ALT 21 U/L (7-52) 04/06/22 21:30 Alkaline Phosphatase 76 U/L (34-104) 04/06/22 21:30 Troponin I High Sens 50.4 pg/ml (0-20) H* D 04/06/22 21:30 B-Natriuretic Peptide 108 pg/ml (0-100) H 04/07/22 00:01 Total Protein 7.6 gm/dl (6.0-8.3) 04/06/22 21:30 Albumin 4.2 gm/dl (3.4-5.0) 04/06/22 21:30 Globulin 3.4 gm/dl (2.5-4.0) 04/06/22 21:30 Albumin/Globulin Ratio 1.2 (0.9-2) 04/06/22 21:30 TSH 0.197 uIu/ml (0.300-4.500) L 04/06/22 21:30 Free T4 1.50 ng/dl (0.61-1.60) 04/06/22 21:30 SARS-CoV-2, RNA, NAAT NEGATIVE (NEGATIVE) 04/06/22 23:35 Diagnostic Findings CXR - by my interpretation - AICD in place. Possible pulmonary vascular congestion ECG Additional Comments: atrial paced PG Care Time/CCT Total # of Minutes Spent Total Time Spent with Patient: Total time spent is greater than 50% in coordination of care (as documented) at patient's floor/unit and/or counseling patient: Coding Level of Care Code 90341 Initial Inpt Care Lvl 3 Diagnoses Ventricular tachycardia I47.2 Obstructive sleep apnea of adult G47.33 Dyslipidemia E78.5 Systolic congestive heart failure I50.20 Heart failure chronicity: unspecified Elevated random blood glucose level R73.09 (1) Systolic congestive heart failure Heart failure chronicity: unspecified Qualified Code(s): I50.20 - Unspecified systolic (congestive) heart failure
[2022-04-07 01:50] LABS: T4 Free Thyroxine 1.5 ng/dl (0.61-1.60)
[2022-04-07] MEDS ORDERED: ACETAMINOPHEN 500 MG TAB PO PRN (03:00)
[2022-04-07] MEDS: MAGNESIUM SULFATE / D5W 1 GM/100 ML BAG IV SCH ×2 (03:26→05:02)
[2022-04-07] MEDS ORDERED: SODIUM CHLORIDE 0.65% NA SOLN 45 ML (OCEAN) ONE (05:32)
[2022-04-07] MEDS ORDERED: SODIUM CHLORIDE 0.65% NA SOLN 45 ML (OCEAN) PRN (05:37)
[2022-04-07 06:46] LABS: Magnesium 2.2 mg/dl (1.7-2.4)
[2022-04-07 07:38] LABS: Estimated Average Glucose 140 mg/dl; Hemoglobin A1C 6.5 % (4.5-5.6)
--- NOTE | 2022-04-07 09:08 | XRay Report ---
SINGLE VIEW CHEST CLINICAL HISTORY: Atypical chest pain. FINDINGS: An AP, portable, upright chest radiograph is compared to study dated 12/28/2021 and correlat ed with chest CT dated 12/27/2021. The examination is degraded by portable technique and apical lordot ic positioning. A 2-lead cardiac ICD is unchanged in position. The heart is enlarged. The pulmonary v asculature is noncongested. Chronic interstitial thickening is similar to previous. There are scatter ed calcified granulomas. Atelectasis is seen at the lung bases. The lungs and pleural spaces are othe rwise clear. No pneumothorax is seen. The skeletal structures are osteopenic. The bony thorax is sh[place] sly intact. IMPRESSION: 1. Cardiomegaly and AICD without radiographic evidence of congestive failure. 2. No airspace consolidation or large pleural effusion is identified. ACT 112: Negative or not required by law. Electronically signed by: Blanco Bazan M.D. 04/07/2022 9:07 AM
[2022-04-07] MEDS: allopurinoL 300 MG TAB PO SCH (09:09)
[2022-04-07] MEDS: AMIODARONE 200 MG TAB PO SCH (09:09)
[2022-04-07] MEDS: ASPIRIN 81 MG ECTAB PO SCH (09:10)
[2022-04-07] MEDS: BUMETANIDE 1 MG TAB PO SCH ×2 (09:10→17:03)
[2022-04-07] MEDS: carvediloL 6.25 MG TAB PO SCH ×2 (09:11→19:59)
[2022-04-07] MEDS: POTASSIUM CHLORIDE CRTAB 20 MEQ TABCR PO SCH ×2 (09:11→13:54)
--- NOTE | 2022-04-07 09:41 | Electrocardiogram Report ---
Test Reason : Blood Pressure : / mmHG Vent. Rate : 082 BPM Atrial Rate : 082 BPM P-R Int : 190 ms QRS Dur : 136 ms QT Int : 442 ms P-R-T Axes : 072 078 060 degrees QTc Int : 516 ms Normal sinus rhythm Non-specific intra-ventricular conduction block Abnormal ECG When compared with ECG of 27-DEC-2021 19:20, Sinus rhythm has replaced Electronic ventricular pacemaker Confirmed by Roberto Carlos Rubalcava ([id number]) on 04/07/2022 9:40:56 AM Referred By: REFERRED SELF Confirmed By:Roberto Carlos Rubalcava
--- NOTE | 2022-04-07 09:42 | Electrocardiogram Report ---
Test Reason : Blood Pressure : / mmHG Vent. Rate : 073 BPM Atrial Rate : 073 BPM P-R Int : 216 ms QRS Dur : 138 ms QT Int : 490 ms P-R-T Axes : 107 059 051 degrees QTc Int : 539 ms Atrial-paced rhythm with prolonged AV conduction Non-specific intra-ventricular conduction block Abnormal ECG When compared with ECG of 06-APR-2022 21:16, Electronic atrial pacemaker has replaced Sinus rhythm Confirmed by Roberto Carlos Rubalcava ([id number]) on 04/07/2022 9:42:12 AM Referred By: REFERRED SELF Confirmed By:Roberto Carlos Rubalcava
[2022-04-07] MEDS ORDERED: DEXTROSE 50% 50 ML SYRINGE IV PRN (11:53)
[2022-04-07] MEDS ORDERED: CARBOHYDRATES FOR HYPOGLYCEMIA PO PRN (11:53)
[2022-04-07] MEDS ORDERED: GLUCOSE 10 TAB/TUBE PO PRN (11:53)
[2022-04-07] MEDS ORDERED: GLUCAGON FOR INJ 1 MG VIAL SQ PRN (11:53)
[2022-04-07] MEDS ORDERED: GLUCOSE 40% GEL 15 GM TUBE PO PRN (11:53)
[2022-04-07 12:15] LABS: BUN Creatinine Ratio 30.9 (10-20); Calcium 9.6 mg/dl (8.5-10.1); Creatinine Clr Calc Pharmacy 87.2 ml/min; Est GFR (African American) 67.4 ml/min; Est GFR (Non-African American) 58.2 ml/min; Troponin I High Sensitivity 34.8 pg/ml (0-20)
[2022-04-07] MEDS: LANTUS PER UNIT CHARGE SQ SCH ×2 (12:27→20:11)
[2022-04-07] MEDS ORDERED: INSULIN ASPART PER UNIT SC STA (13:05)
--- NOTE | 2022-04-07 14:09 | Cardiology Consultation ---
Date of Consultation April 07, 2022 Assessment & Plan (1) Ventricular fibrillation: (2) AICD (automatic cardioverter/defibrillator) present: (3) Cardiomyopathy: (4) Mitral regurgitation: Plan 1. Ventricular fibrillation: I reviewed the recordings from his device. He did experience an episode of ventricular fibrillation successfully defibrillated by his device yesterday around 3:00 p.m. he had had some other episodes of nonsustained VT as well as frequent ventricular ectopy what role his hypokalemia plays in this event is unclear but certainly could cause some cardiac irritation. He has had several episodes over the past few months of ventricular fibrillation. His amiodarone was increased approximately 1 month ago order to reduce additional episodes. In the past and atrial lead was added to his single-chamber defibrillator in the hopes that some higher heart rates would reduce ectopy and for a while this did diminish his treated episodes of ventricular fibrillation. Unfortunately, outside of medical therapy I am not sure what additional options are left. Will continue aggressive treatment of his cardiomyopathy. We will make an attempt to prevent additional electrolyte abnormalities. We did discuss referral to a center for advanced heart failure therapies to see if there are additional options. 2. Cardiomyopathy: His overall degree of LV dysfunction is varied over the years. Currently believed to be [id number] in severity. Last echocar diogram demonstrated an ejection fraction around 40-45%. He has been maintained on low-dose carvedilol recently due to an admission earlier this year where he experienced hypotension. Entresto was also discontinued at that time due to lower blood pressures. Spironolactone was discontinued due to lower blood pressures. He was tried on Jardiance but this resulted in a urinary tract infection. He is limited by dyspnea at times. This is likely a combination of his cardiomyopathy, obesity and severe deconditioning. He will continue in cardiac rehab and seems to be feeling well exercising at that facility. He seems to be well compensated currently. Lung examination is benign. Chest x-ray did not demonstrate pulmonary edema and his BNP was nearly normal. 3. Hypokalemia: Unclear etiology. I do not believe this is related to diarrhea. Possibly from his diuretics although he has not had significant hypokalemia Previously. Perhaps discontinuation of his spironolactone and his Entresto resulted in lower potassium levels. I think we will restart his spironolactone. May require additional supplementation. History of Present Illness Reason for Consultation: ventricular fibrillation, syncope Requesting Physician: Desmond Attending Physician: Daria Harper MD History of Present Illness the patient is a 56-year-old gentleman with a long history of a nonischemic cardiomyopathy, congestive heart failure, ventricular fibrillation status post dual-chamber ICD and diabetes mellitus who came to the hospital yesterday after a brief episode of syncope when he believes was therapy from his defibrillator. Patient states that he was in his car talking to his relative when he began to feel somewhat lightheaded. He believes he lost consciousness briefly and awoke with a sensation of feeling energized. This is the typical sensation he gets after device therapy. He had some numbness and tingling in his fingertips. He otherwise was feeling well. He returned home and gathered some item before presenting to the emergency room for evaluation. He states that in the emergency room waiting area he did experience another episode of lightheadedness and shakiness. Relieved this was associated with palpitations as well. He did not lose consciousness at that time. While he has continued to struggle with symptoms of heart failure, primarily dyspnea, he has been participating in cardiac rehab. He states that he has some difficulty ambulating 2 cardiac rehab but once he begins exercising he generally feels well. Yesterday he did notice some "flutters". These appear to be very transient palpitations occurred throughout the course of the day. He has been eating more fruit recently. He did have some pizza yesterday afternoon. He did not report any other particular dietary indiscretion claims to be compliant with his medical therapy. While there was some reports of "diarrhea" patient did report 1 loose stool but no high volume diarrhea. Allergies Allergy/AdvReac Type Severity Reaction Status Date / Time No Known Allergies Allergy Verified 03/28/22 14:43 Home Medications Medication Instructions Recorded Confirmed Type acetaminophen 500 mg tablet 500 mg PO Q4H PRN Fever Or Pain 03/28/19 04/07/22 History omega-3 fatty acids 1,250 mg 1,250 mg PO DAILY 03/28/19 04/07/22 History capsule multivitamin 1 tab PO DAILY 12/01/19 04/07/22 History Auto Titrating CPAP #1 ea 03/16/20 02/25/22 Rx CPAP Supplies #1 ea 03/16/20 02/25/22 Rx bumetanide 2 mg tablet 2 mg PO BID #60 tabs 10/05/20 04/07/22 Rx cholecalciferol (vitamin D3) 50 50 mcg PO DAILY 04/05/21 04/07/22 History mcg (2,000 unit) capsule atorvastatin 80 mg tablet 80 mg PO HS 10/13/21 04/07/22 History allopurinol 300 mg tablet 300 mg PO DAILY 12/27/21 04/07/22 History metolazone 5 mg tablet 5 mg PO DAILY PRN WT GAIN 12/27/21 04/07/22 History carvedilol 6.25 mg tablet 6.25 mg PO BID #180 tabs 02/01/22 04/07/22 Rx amiodarone 400 mg tablet 400 mg PO QAM 04/07/22 04/07/22 History aspirin 81 mg tablet,delayed 81 mg PO DAILY 04/07/22 04/07/22 History release fluocinonide 0.05 % topical cream 1 applic topical BID PRN Skin 04/07/22 04/07/22 History Irritation zinc acetate 25 mg (zinc) capsule 0 mg PO DAILY 04/07/22 04/07/22 History blood sugar diagnostic (OneTouch #100 ea 04/08/22 Rx Verio test strips) blood-glucose meter (OneTouch #1 ea 04/08/22 Rx Verio Meter) lancets 33 gauge (OneTouch Delica #100 ea 04/08/22 Rx Lancets) potassium chloride 20 mEq 40 meq PO BID #120 tabs 04/08/22 04/07/22 Rx tablet,extended release(part/cryst) (Klor-Con M) spironolactone 25 mg tablet 12.5 mg PO DAILY #15 tabs 04/08/22 Rx Patient History Medical History (Updated 04/08/22 @ 13:12 by Daria Harper MD) Cardiomyopathy, nonischemic Diabetes mellitus type 2 in obese 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 Dyslipidemia Elevated bilirubin Former smoker Hemoptysis Metabolic syndrome Non-rheumatic mitral regurgitation Obesity, morbid, BMI 40.0-49.9 Obstructive sleep apnea of adult Shortness of breath Systolic congestive heart failure Ventricular tachycardia (paroxysmal) Social History Smoking Status: Current every day smoker Tobacco Type: Cigarettes Second Hand Exposure: No; Hx Alcohol Use: Yes Alcohol type: beer Hx Substance Use: Yes Last Used Substance: Unknown Substance Use Type Other:: medical marijuana Preferred Language: Yoruba Communication Ability: Effective Restaurant Hourly Team Member Required: No Beliefs That Will Affect Care: None Current Living Situation: Alone 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 Mood and affect appeared normal. He answered all questions appropriately. obese HEENT: Pupils are equal and reactive to light and accommodation. Extraocular movements are intact. The sclerae are anicteric. Neuro: Cranial nerves intact Neck: Patient's neck is supple. He has palpable carotid pulses bilaterally without bruits on auscultation. There is no evidence of jugular venous distention. The thyroid is not enlarged. Lungs: Clear to auscultation bilaterally. He has good air movement without use of accessory muscles. No rales wheezes or rhonchi. Cardiac: Heart demonstrates a regular rate and rhythm with occasional ectopy. Normal S1 and S2. No murmurs on examination. Pulses: The patient has palpable radial pulses bilaterally that are equal in intensity Extremities: There was no evidence of hypoperfusion. There is no cyanosis or clubbing. There is no edema. Skin: I did not appreciate any rashes on examination today. Results & Data ([facility]) Vital Signs (Past 12 Hours) Vital Signs Temp Pulse Resp BP Pulse Ox O2 Del Method O2 Flow Rate 04/07/22 11:32 74 18 106/54 L 100 Room Air 04/07/22 04:24 73 16 112/68 94 Room Air 04/07/22 03:39 36.7 C 72 16 109/55 L 93 Room Air 04/07/22 03:12 95 0 04/07/22 03:11 75 20 109/55 L 96 Laboratory Results Abnormal Lab Results 04/06/22 04/06/22 04/06/22 21:30 21:30 21:30 WBC 10.63 RBC 4.46 L Hgb 13.6 L Hct 38.3 L MCV 85.9 MCH 30.5 MCHC 35.5 RDW Std Deviation 55.2 H RDW Coeff of Kylee 17.9 H Plt Count 266 MPV 9.7 Immature Gran % (Auto) 0.4 Neut % (Auto) 79.0 Lymph % (Auto) 10.6 Harrison % (Auto) 8.3 Eos % (Auto) 1.2 Baso % (Auto) 0.5 Neut # (Auto) 8.40 H Lymph # (Auto) 1.13 L Harrison # (Auto) 0.88 H Eos # (Auto) 0.13 Baso # (Auto) 0.05 Immature Gran # (Auto) 0.04 H PT 11.3 INR 1.1 APTT 27.3 PTT Ratio 1.0 Sodium 138 Potassium 3.2 L Chloride 96 L Carbon Dioxide 29 Anion Gap 13 H BUN 40 H Creatinine 1.51 H Est Cr Clr Drug Dosing 78.5 Est GFR ( Amer) 59.4 Est GFR (Non-Af Amer) 51.3 BUN/Creatinine Ratio 26.5 H Glucose 315 H* POC Glucose Estimat Average Glucose Hemoglobin A1c Calcium 9.9 Magnesium Total Bilirubin 4.0 H AST 27 ALT 21 Alkaline Phosphatase 76 Troponin I High Sens 50.4 H* D B-Natriuretic Peptide Total Protein 7.6 Albumin 4.2 Globulin 3.4 Albumin/Globulin Ratio 1.2 TSH Free T4 SARS-CoV-2, RNA, NAAT 04/06/22 04/06/22 04/06/22 21:30 21:30 23:35 WBC RBC Hgb Hct MCV MCH MCHC RDW Std Deviation RDW Coeff of Kylee Plt Count MPV Immature Gran % (Auto) Neut % (Auto) Lymph % (Auto) Harrison % (Auto) Eos % (Auto) Baso % (Auto) Neut # (Auto) Lymph # (Auto) Harrison # (Auto) Eos # (Auto) Baso # (Auto) Immature Gran # (Auto) PT INR APTT PTT Ratio Sodium Potassium Chloride Carbon Dioxide Anion Gap BUN Creatinine Est Cr Clr Drug Dosing Est GFR ( Amer) Est GFR (Non-Af Amer) BUN/Creatinine Ratio Glucose POC Glucose Estimat Average Glucose Hemoglobin A1c Calcium Magnesium 1.6 L Total Bilirubin AST ALT Alkaline Phosphatase Troponin I High Sens B-Natriuretic Peptide Total Protein Albumin Globulin Albumin/Globulin Ratio TSH 0.197 L Free T4 1.50 SARS-CoV-2, RNA, NAAT NEGATIVE 04/07/22 04/07/22 04/07/22 00:01 05:37 05:37 WBC RBC Hgb Hct MCV MCH MCHC RDW Std Deviation RDW Coeff of Kylee Plt Count MPV Immature Gran % (Auto) Neut % (Auto) Lymph % (Auto) Harrison % (Auto) Eos % (Auto) Baso % (Auto) Neut # (Auto) Lymph # (Auto) Harrison # (Auto) Eos # (Auto) Baso # (Auto) Immature Gran # (Auto) PT INR APTT PTT Ratio Sodium Potassium Chloride Carbon Dioxide Anion Gap BUN Creatinine Est Cr Clr Drug Dosing Est GFR ( Amer) Est GFR (Non-Af Amer) BUN/Creatinine Ratio Glucose POC Glucose Estimat Average Glucose 140 Hemoglobin A1c 6.5 H Calcium Magnesium 2.2 Total Bilirubin AST ALT Alkaline Phosphatase Troponin I High Sens 49.0 H B-Natriuretic Peptide 108 H Total Protein Albumin Globulin Albumin/Globulin Ratio TSH Free T4 SARS-CoV-2, RNA, NAAT 04/07/22 04/07/22 04/07/22 10:54 11:34 11:36 WBC RBC Hgb Hct MCV MCH MCHC RDW Std Deviation RDW Coeff of Kylee Plt Count MPV Immature Gran % (Auto) Neut % (Auto) Lymph % (Auto) Harrison % (Auto) Eos % (Auto) Baso % (Auto) Neut # (Auto) Lymph # (Auto) Harrison # (Auto) Eos # (Auto) Baso # (Auto) Immature Gran # (Auto) PT INR APTT PTT Ratio Sodium 137 Potassium 3.0 L Chloride 95 L Carbon Dioxide 30 Anion Gap 12 H BUN 42 H Creatinine 1.36 Est Cr Clr Drug Dosing 87.2 Est GFR ( Amer) 67.4 Est GFR (Non-Af Amer) 58.2 BUN/Creatinine Ratio 30.9 H Glucose 292 H POC Glucose 305 H* 334 H* Estimat Average Glucose Hemoglobin A1c Calcium 9.6 Magnesium Total Bilirubin AST ALT Alkaline Phosphatase Troponin I High Sens 34.8 H D B-Natriuretic Peptide Total Protein Albumin Globulin Albumin/Globulin Ratio TSH Free T4 SARS-CoV-2, RNA, NAAT 04/07/22 13:36 WBC RBC Hgb Hct MCV MCH MCHC RDW Std Deviation RDW Coeff of Kylee Plt Count MPV Immature Gran % (Auto) Neut % (Auto) Lymph % (Auto) Harrison % (Auto) Eos % (Auto) Baso % (Auto) Neut # (Auto) Lymph # (Auto) Harrison # (Auto) Eos # (Auto) Baso # (Auto) Immature Gran # (Auto) PT INR APTT PTT Ratio Sodium Potassium Chloride Carbon Dioxide Anion Gap BUN Creatinine Est Cr Clr Drug Dosing Est GFR ( Amer) Est GFR (Non-Af Amer) BUN/Creatinine Ratio Glucose POC Glucose 296 H Estimat Average Glucose Hemoglobin A1c Calcium Magnesium Total Bilirubin AST ALT Alkaline Phosphatase Troponin I High Sens B-Natriuretic Peptide Total Protein Albumin Globulin Albumin/Globulin Ratio TSH Free T4 SARS-CoV-2, RNA, NAAT Diagnostic Findings chest x-ray obtained the time admission not reveal any acute cardiopulmonary findings. PG Care Time/CCT Total # of Minutes Spent Total Time Spent with Patient: Total time spent is greater than 50% in coordination of care (as documented) at patient's floor/unit and/or counseling patient: Coding Level of Care Code 61156 Office/OBS Consult Lvl 4 Diagnoses Ventricular fibrillation I49.01 AICD (automatic cardioverter/defibrillator) present Z95.810 Cardiomyopathy I42.9 Mitral regurgitation I34.0
--- NOTE | 2022-04-07 16:12 | History & Physical Bridge Note ---
Date of Service April 07, 2022 History & Physical Bridge Note I have examined the patient, reviewed the History & Physical and in the interval since the performance of the History & Physical I have noted the following changes of clinical significance: Patient reports feeling an occasional flutter in the chest with associated lightheadedness for few seconds. No chest pains or shortness of breath. No nausea or abdominal pain. His legs are a bit swollen after sitting most of the day. I discussed his care with cardiology Telemetry here with normal sinus rhythm and some occasional ventricular ectopy Vitals reviewed Gen: AAOx3, NAD, obese HEENT: Anicteric sclerae, EOMI CV: RRR no mgr nl S1S2 Pulm: CTAB no wcr Ext: 1+ pitting edema to the knees bilaterally of the legs Skin: Chronic venous stasis color changes of the legs bilaterally Neuro: Full strength throughout Labs reviewed 56-year-old male here with history of nonischemic cardiomyopathy, COTY, hyperlipidemia, and new onset diabetes mellitus DM2-new diagnosis, he plans to start Jardiance again despite it giving him a UTI in the past. Could also start metformin on discharge. Will need diabetic teaching and glucometer. Suspect his hyperglycemia currently is due to stress and recent excessive intake of fruit and sugar, however his hemoglobin A1c argues that he is not typically this high. He will not need insulin on discharge. Cardiomyopathy with ventricular fibrillation and recent defibrillation- appreciate cardiology consultation-keep electrolytes replete, continue increased dose of amiodarone, restart spironolactone at low-dose and watch blood pressures carefully. Will replace potassium and repeat BMP and magnesium again this evening at 1700
[2022-04-07] MEDS: SPIRONOLACTONE 12.5 MG TAB PO SCH (17:04)
[2022-04-07] MEDS: INSULIN ASPART PER UNIT SC SCH ×2 (17:12→20:10)
[2022-04-07 18:56] LABS: BUN Creatinine Ratio 26.4 (10-20); Calcium 9.7 mg/dl (8.5-10.1); Creatinine Clr Calc Pharmacy 72.7 ml/min; Est GFR (African American) 54.2 ml/min; Est GFR (Non-African American) 46.7 ml/min; Potassium 3.3 mmol/L (3.5-5.1)
[2022-04-07] MEDS ORDERED: POTASSIUM CHLORIDE CRTAB 20 MEQ TABCR PO SCH (21:00)
[2022-04-07] MEDS ORDERED: ATORVASTATIN 40 MG TAB PO SCH (21:00)
[2022-04-08 06:08] LABS: Hematocrit (blood only) 36.1 % (40.1-51.0); Hemoglobin 12.5 g/dl (14.0-18.0); Mean Corpuscular Hemoglobin 30.1 pg (25.0-34.0); Mean Corpuscular Hgb Conc 34.6 g/dL (32.0-36.0); Mean Platelet Volume 9.6 fL (9.4-12.4); Platelet Count 216 K/uL (130-400); RDW Coefficient of Variation 17.9 % (11.5-14.5); Red Blood Count 4.15 M/uL (4.63-6.08); White Blood Count 8.48 K/ul (4.8-10.8)
[2022-04-08 06:38] LABS: BUN Creatinine Ratio 30.7 (10-20); Bilirubin Direct 0.8 mg/dl (0-0.2); Bilirubin,Total 4.5 mg/dl (0.2-1.0); Calcium 9.6 mg/dl (8.5-10.1); Creatinine Clr Calc Pharmacy 86.4 ml/min; Est GFR (African American) 66.8 ml/min; Est GFR (Non-African American) 57.7 ml/min; Potassium 3.4 mmol/L (3.5-5.1); Total Protein 7.1 gm/dl (6.0-8.3)
[2022-04-08 06:45] LABS: Iron 90 mcg/dl (35-175); Total Iron Binding Cap Calc 266 mcg/dl (250-450); Transferrin (FE) Percent Satur 34 % (20-50); Unsaturated Iron Binding Cap 176 mcg/dl (155-355)
[2022-04-08 06:54] LABS: Ferritin 267.4 ng/ml (8-388)
[2022-04-08 06:59] LABS: Folate (Folic Acid) > 22.30 ng/ml (>5.38)
[2022-04-08 07:00] LABS: Vitamin B12 423 pg/ml (180-914)
[2022-04-08] MEDS: INSULIN ASPART PER UNIT SC SCH ×2 (08:49→12:08)
[2022-04-08] MEDS: SPIRONOLACTONE 12.5 MG TAB PO SCH (08:56)
[2022-04-08] MEDS: allopurinoL 300 MG TAB PO SCH (08:56)
[2022-04-08] MEDS: AMIODARONE 200 MG TAB PO SCH (08:56)
[2022-04-08] MEDS: carvediloL 6.25 MG TAB PO SCH (08:56)
[2022-04-08] MEDS: ASPIRIN 81 MG ECTAB PO SCH (08:57)
[2022-04-08] MEDS: LANTUS PER UNIT CHARGE SQ SCH (09:02)
[2022-04-08] MEDS ORDERED: BUMETANIDE 1 MG TAB PO ONE (09:33)
[2022-04-08] MEDS ORDERED: POTASSIUM CHLORIDE CRTAB 20 MEQ TABCR PO SCH (09:45)
--- NOTE | 2022-04-08 14:29 | Discharge Summary ---
Date of Service April 08, 2022 Admission HPI Per Admitting Provider Lenard Machado is a pleasant 56yo male with history of non-ischemic dilated cardiomyopathy (Last echo 12/28/21 with moderately dilated LV with concentric LVH, EF of 40-45%. Moderate global hypokinesis of the LV). History of cardiac arrest 01/11/2016 s/p resuscitation, therapeutic hypothermia and placement of dual chamber AICD. Patient follows with Cardiology - Dr. Moran, last seen on 02/25/22. He reports increased frequency of palpitations ongoing for the last two days. He participated in his 4th session of cardiac rehabilitation today. He reports experiencing frequent palpitations throughout the day with some associated shortness of breath. At 17:00 he was in his parked car speaking with his cousin when he had an AICD discharge. He briefly passed out and woke up shaking, he feels secondary to an adrenaline cuevas. He came to the ER for further evaluation. Device interrogation completed and revealed a shock delivery for VT. Patient denies fever. He was having some chills earlier this evening. He has fairly constant chest pressure at baseline but does not experience any exertional symptoms. He denies SOB, cough, wheeze. Denies abdominal pain or nausea. He did have some diarrhea this AM. He reports eating a lot of fruit today - blueberries, apples, strawberries as well as two pieces of pizza. His blood sugar is high in the ER but he denies diabetic symptoms - no polyuria, polydipsia, visual changes, weight loss Recent medication changes include increase in Amiodarone from 200mg to 400mg as well as decrease in Carvedilol to 6.25. Losartan has also been discontinued. ER Course: KCl 60mEq Insulin 6u SC Magnesium 2gm IV Principal Diagnosis Ventricular fibrillation, VT, hypokalemia New onset diabetes mellitus Discharge Exam Vitals reviewed Gen: [AAOx3, NAD,obese] HEENT: [anicteric sclerae, EOMI] CV: [RRR no mgr nl S1S2] Pulm: [CTAB no wcr] Abd: [+BS soft NT ND no masses or hernias] Ext: [1+ pitting edema legs bilat Skin: [chronic venous stasis changes legs bilat warm/dry] Neuro: [full strength throughout, gait normal Discharge Data Allergies Allergy/AdvReac Type Severity Reaction Status Date / Time No Known Allergies Allergy Verified 03/28/22 14:43 Consultations 04/07/22 01:12 ED Decision to Admit Stat 04/07/22 03:00 Consult Cardiology Routine Diabetes Follow up Diabetes Follow-up Needed for Newly Diagnosed Diabetes Hospital Course (1) Ventricular tachycardia: 56-year-old male here with history of nonischemic cardiomyopath with ICD,, COTY, hyperlipidemia, and new onset diabetes mellitus who p/w ICD shock from V-fib, also found to have NSVT on interrogation of pacer Seen by Cardiology and thought to possibly be 2/2 hypokalemia--> lytes replaced, restarted aldactone to help spare potassium No further events on tele x 48 hrs No MO-ruled out Replaced K+ and Mag aggressively -continue recently increased dose of amiodarone 400mg po once daily -started aldactone 12.5mg po daily -continue KCl 40 meq po bid on discharge which is actually a decrease from home dose as started on aldactone -check BMP in 3 days on Monday -f/u with Cardiology as an outpt -ok to continue Bumex 2mg po bid -continue same dose of Coreg 6.25mg po bid (2) Obstructive sleep apnea of adult: Patient reports compliance with his CPAP. -Continue CPAP qHS -Patient brought his home device and may use it while inpatient (3) Dyslipidemia: Chronic. Stable on medications -Continue Atorvastatin 80mg po qHS (4) Systolic congestive heart failure: Chronic systolic CHF Appears to be compensated overall -Continue Carvedilol -Continue Bumex 2mg po BID added aldactone cannot tolerate ACEi/ARB,Entresto (5) Diabetes mellitus type 2 in obese: Elevated blood sugar of 315 on arrival. No history of DM. He does not endorse symptoms consistent with DM - no polyuria, polydipsia, polyphagia, visual d isturbances or weight loss. Was given insulin 6u in ER HgbA1C here 6.5% Glucose continued to be in the 200-300s and was given insulin I do not suspect it is typically this high as A1C borderline, but rather high here due to recent stress DM2-new diagnosis, he plans to start Jardiance again despite it giving him a UTI in the past. Could also start metformin on discharge but he delcines that at this time and will discuss with his PCP -seen by DM educator and was prescribed a glucometer, test strips, and lancets on discharge -f/u with PCP (6) Hypokalemia: as above replaced (7) AICD (automatic cardioverter/defibrillator) present: as above (8) Ventricular fibrillation: as above Plan Dispo-stable for dc to home Discussed his care with Cardiology, Dr. Moran Total Time Total Time Spent Total Time Spent (In Minutes): 40 min Discharge Plan Discharge Items Patient Disposition: Home - Self-Care Reason For Visit: AICD DISCHARGE, VT Discharge Diagnosis: AICD Discharge, ventricular fibrillation and ventricular tachycardia, hypokalemia, new onset diabetes mellitus type 2 Activity: Resume your previous activity Non-emergency contact: Primary Care Provider and [employer] Call non-emergency contact if: you have any medication questions and your symptoms worsen Follow-up/Referrals: Ravindra Moran MD [Physician] - (Please follow up within 2 weeks) Tamar Boss [Primary Care Provider] - (Please follow up within 1 week.) Diet: Carb Consistent or DM2 and Low Sodium (2gm) Fluids: 1500ml (6 cups) Ambulatory Orders: Basic Metabolic Panel (Routine) Timeframe: 3 Days Location: Determined by Patient Ordered By: Daria Faustin Attending Provider Instructions: You were admitted due to your defibrillator going off for ventricular fibrillation. You had low potassium levels which might be contributing to this. Your potassium was replaced and you were started on spironolactone which will also help keep your potassium levels up. Please take potassium tablets at a dose of 40 meq (2 tablets) twice a day and then have blood work on Monday to see what your potassium level is. You may need to have your potassium levels adjusted after that. You were also diagnosed with diabetes and had some fairly high blood sugars here. You should talk to your PCP about starting back on medication to treat your diabetes as we discussed. Please check your blood sugar once daily and keep a record of it for your doctor to review. Call your Primary Care doctor if any of the following symptoms or problems start or get worse: * Shortness of breath or difficulty breathing * Wake up at night short of breath * Chest pain * Cough * Swelling of your hands, feet, or legs * More fatigued or tired with your normal activity * Palpitations - sudden fast heart beats WEIGHT * Weigh yourself every morning after using the bathroom. * Use the same scale. * Wear the same amount of clothing. * Write your weight down on a chart. * Call your Primary Care doctor if you gain more than 2-3 pounds in 1-2 days. MEDICATIONS * Use this discharge instruction sheet for medication instructions. * Take your medications at the time your doctor ordered. * Do not skip a dose of your medicines. * If you miss a dose of medicine, take it as soon as possible, but DO NOT DOUBLE A DOSE. * Read your medicine information when you get home. * Know all of the side effects of your medicine. If in doubt, ask your pharmacist * Call your Primary Care doctor's office if you have any side effects. * Be sure all of your doctors know what medicine and herbs you take (including cold, flu, and herbal medicine). Take the following with you to your follow-up doctor appointments: * Weight Chart * Medication List * List of questions Do not drink excessive alcohol, beer or wine. Pending Studies at Discharge: No Stand-Alone Forms: My [facility] [employer], Smoking Cessation Medications and DC Order Prescriptions: New spironolactone 25 mg Tablet 12.5 mg PO DAILY Qty: 15 0RF (DME) blood-glucose meter [OneTouch Verio Meter] Mis See Rx Instructions .Route Qty: 1 0RF Rx Instructions: As directed (DME) OneTouch Verio test strips Strip See Rx Instructions .Route Qty: 100 0RF Rx Instructions: As directed once daily (DME) lancets [OneTouch Delica Lancets] 33 gauge misc See Rx Instructions .Route Qty: 100 0RF Rx Instructions: As directed once daily Continued (DME) CPAP Supplies Misc See Rx Instructions .MEDSUPPLY Qty: 1 0RF Rx Instructions: CPAP supplies. G47.33 (DME) Auto Titrating CPAP Misc See Rx Instructions .MEDSUPPLY Qty: 1 0RF Rx Instructions: Auto PAP with 10-20mm H20. Lifetime usage. G47.33 carvedilol 6.25 mg tablet 6.25 mg PO BID Qty: 180 3RF cholecalciferol (vitamin D3) 50 mcg (2,000 unit) capsule 50 mcg PO DAILY acetaminophen 500 mg tablet 500 mg PO Q4H PRN (Reason: Fever Or Pain) omega-3 fatty acids 1,250 mg capsule 1,250 mg PO DAILY multivitamin Tablet 1 tab PO DAILY bumetanide 2 mg tablet 2 mg PO BID Qty: 60 3RF atorvastatin 80 mg tablet 80 mg PO HS metolazone 5 mg tablet 5 mg PO DAILY PRN (Reason: WT GAIN) Rx Instructions: take with Bumetanide allopurinol 300 mg tablet 300 mg PO DAILY amiodarone 400 mg tablet 400 mg PO QAM fluocinonide 0.05 % cream 1 applic topical BID PRN (Reason: Skin Irritation) Rx Instructions: Apply to areas of the trunk and extremities twice daily x 2 weeks as needed for flaring. aspirin [Aspir-Low] 81 mg Tablet,Delayed Release (Dr/Ec) 81 mg PO DAILY zinc acetate 25 mg (zinc) Capsule 0 mg PO DAILY Changed potassium chloride [Klor-Con M20] 20 mEq tablet,ER particles/crystals 40 meq PO BID Qty: 120 0RF Discharge Orders: Discharge Order (Routine); Ordered 04/08/22 Ordered By: Daria Carson/Other Patient Handouts: Exercise: Why Fitness Matters, Diabetes: Meal Planning, Type 2 Diabetes Admission Data Admit Date/Time: 04/07/22 01:41 Attending Provider: Daria Harper Admit Provider: Reva Logan Primary Care Provider: Tamar Boss Other Providers: Reva Logan ; Ravindra Moran Coding Level of Care Code D/C DAY MANAGEMENT >30 MINS Diagnoses Ventricular tachycardia I47.2 Obstructive sleep apnea of adult G47.33 Dyslipidemia E78.5 Systolic congestive heart failure I50.20 Heart failure chronicity: unspecified Diabetes mellitus type 2 in obese E11.69; E66.9 Hypokalemia E87.6 AICD (automatic cardioverter/defibrillator) present Z95.810 Ventricular fibrillation I49.01
== END 2022-04-08 15:58 | disposition home or self-care (01) ==
LOC: ED 21:09 → SUATTDRO 04-07 01:41 → INTOOBSV 04-07 01:41 → EDINP 04-07 01:41 → 2S 04-07 03:01

== ENCOUNTER 2022-07-01 16:56 | Inpatient (IN) ==
[2022-07-01] MEDS ORDERED: guaiFENesin 600 MG TABCR PO STA (17:32)
[2022-07-01] MEDS ORDERED: ALBUT/IPRATROP 3MG/0.5MG NEB 3 ML VIAL NEB STA (17:32)
[2022-07-01] MEDS ORDERED: methylPREDNISolone 125 MG/2 ML VIAL IV STA (17:32)
--- NOTE | 2022-07-01 18:07 | XRay Report ---
XR chest 1V portable HISTORY: 57 years-old Male sob acute shortness of breath COMPARISON: Chest radiograph June 29, 2022 TECHNIQUE: AP view of the chest FINDINGS: Cardiac silhouette is enlarged. Left subclavian pacer/AICD. Pulmonary vascular congestion with mildly decreased interstitial coarsening. Trace pleural effusions suggested. No pneumothorax. Bones appear grossly intact. IMPRESSION: 1. Cardiomegaly and pulmonary vascular congestion with mildly improved pulmonary edema. 2. Probable trace pleural effusions. ACT 112: Negative or not required by law. The above report was generated using voice recognition software. It may contain grammatical, syntax o r spelling errors. Electronically signed by: Armaan Sher M.D. 07/01/2022 6:04 PM
[2022-07-01 18:13] LABS: Basophils # (auto) 0.06 K/uL (0-0.2); Basophils % (auto) 0.7 %; Eosinophils # (auto) 0.06 K/uL (0-0.50); Eosinophils % (auto) 0.7 %; Hematocrit (blood only) 34.1 % (40.1-51.0); Hemoglobin 11.5 g/dl (14.0-18.0); Immature Granulocytes # (auto) 0.04 K/uL (0.00-0.02); Immature Granulocytes % (auto) 0.5 %; Lymphocytes # (auto) 1.29 K/uL (1.2-3.4); Mean Corpuscular Hemoglobin 30.4 pg (25.0-34.0); Mean Corpuscular Hgb Conc 33.7 g/dL (32.0-36.0); Mean Corpuscular Volume 90.2 fL (80.0-100.0); Monocytes % (auto) 9.3 %; Neutrophils # (auto) 6.35 K/uL (1.4-6.5); Neutrophils % (auto) 73.8 %; Nucleated RBC # (auto) 0.08 K/uL (0-0); Nucleated RBC % (auto) 0.9 %; Platelet Count 271 K/uL (130-400); RDW Coefficient of Variation 17.9 % (11.5-14.5); RDW Standard Deviation 57.1 fL (36.4-46.3); Red Blood Count 3.78 M/uL (4.63-6.08)
--- NOTE | 2022-07-01 18:23 | Emergency Department Note ---
Impression & Plan Hypoxia, Restrictive lung disease, RSV infection ED Provider Note NAME: MISSY PIERRE AGE: 57 SEX: M ARRIVES VIA: Walk-In INFORMANT: Patient ED PROVIDER(S): Lars Costa MD CHIEF COMPLAINT: SOB PLAN: Disposition: Admit MEDICAL DECISION MAKING: The patient is a pleasant 57-year-old gentleman with a past medical history of nonischemic cardiomyopathy, history of restrictive lung disease who presents to the emergency department for evaluation of ongoing shortness of breath with cough and congestion since been seen emergency department on 06/29 and was di agnosed with RSV. The patient preferred outpatient follow-up at the time as he felt improved however symptoms have worsened. Upon arrival to triage he was noted that his O2 saturation was in the low 80s with significant shortness of breath. He reports he has had fevers and chills. He denies any nausea or vomiting. He denies diarrhea. He reports that he feels his weight is been stable to low for him. He specifically feels his symptoms are not related to increased fluid retention/CHF. He reports he attempted to contact his doctor's office to see if he could obtain home oxygen but was referred to emergency department again. On arrival the patient is uncomfortable, mildly dyspneic with O2 saturation in the low 80s on room air tachypneic in the upper 20s. Upon placement not oxygen is shortness of breath improved with O2 saturation improving to the mid 90s. Lungs with wheezes of bilateral lung mims. EKG is paced without overt acute ischemia. Chest x-ray with improved pulmonary edema from prior with mild vascular congestion. Trace pleural effusions and suspected. WBC and platelets within normal limits. H/H similar to prior range of values. Platelets wnl. Chemistry without metabolic acidosis. Electrolytes without significant abnormality. Creatinine 1.6, similar to prior range of values in setting of CKD. Totally [place] 2.5, similar to prior values and LFTs otherwise normal. High-sensitivity troponin 26.8, nonspecific. BNP is 398, increased from prior values however nonspecific in setting of patient's known cardiomyopathy and CKD. Procalcitonin is not significantly elevated. RSV PCR continues to remain positive. Influenza and COVID-19 PCR were negative. Tr anette initiated emergency department with Solu-Medrol, DuoNeb for bronchospasm. Patient is planned for admission for further management. Case was d/w Greg Perry, admitting resident with JAYNE Sosa hospitalist who will evaluate the patient for admission. Triage Nursing notes reviewed and agree them. Prior medical records reviewed Vital Signs: reviewed Differential diagnosis: Reactive airway disease, pneumonia, pneumothorax, COPD, CHF, infections, cardiac ischemia, pulmonary embolism, musculoskeletal, gastrointestinal, as well as other pathologies. ER treatment provided: See below. Diagnostics interpreted by me: ECG: Atrial paced, 85 bpm, no ectopy, no overt acute ischemia. Cardiac Monitoring: An order for continuous cardiac monitoring was placed and demonstrated atrial paced rhythm, 85 bpm, no ectopy Laboratory studies: See below Imaging studies: See below Consultation(s): Case was d/sheba Perry, admitting resident with JAYNE Sosa hospitalist who will evaluate the patient for admission. HPI: The patient is a pleasant 57-year-old gentleman with a past medical history of nonischemic cardiomyopathy, history of restrictive lung disease who presents to the emergency department for evaluation of ongoing shortness of breath with cough and congestion since been seen emergency department on 06/29 and was diagnosed with RSV. The patient preferred outpatient follow-up at the time as he felt improved however symptoms have worsened. Upon arrival to triage he was noted that his O2 saturation was in the low 80s with significant shortness of breath. He reports he has had fevers and chills. He denies any nausea or vomiting. He denies diarrhea. He reports that he feels his weight is been stable to low for him. He specifically feels his symptoms are not related to increased fluid retention/CHF. He reports he attempted to contact his doctor's office to see if he could obtain home oxygen but was referred to emergency department again. ROS: See above HPI for pertinent positives & negatives. A total of 10 systems reviewed and were otherwise negative. VITALS:See Below PHYSICAL EXAMINATION: GENERAL: Awake, alert, uncomfortable-appearing, mild respiratory distress, BMI 45.7. HENT: Normocephalic, atraumatic. Oropharynx unremarkable. EYES: Normal conjunctiva. Sclera non-icteric. NECK: Supple. No nuchal rigidity. FROM. No JVD. RESPIRATORY: Wheezes of bilateral lung mims with mild increased work of louis thing. CARDIAC: Regular rate, normal rhythm. Extremities warm and well perfused. Pulses equal. ABDOMEN: Soft, non-distended. No tenderness to palpation. No rebound or guarding. No masses. RECTAL: Deferred. MUSCULOSKELETAL: Chest examination reveals no tenderness. The back is symmetrical on inspection without obvious abnormality. There is no CVA tenderness to palpation. No joint edema. LOWER EXTREMITIES: Calves are equal size bilaterally and non-tender. Mild BLE edema. No discoloration. NEURO: Normal sensorium. No sensory or motor deficits noted. SKIN: No rash or jaundice noted. 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 Dyslipidemia Elevated bilirubin Former smoker Hemoptysis Metabolic syndrome Non-rheumatic mitral regurgitation Obesity, morbid, BMI 40.0-49.9 Obstructive sleep apnea of adult Shortness of breath Systolic congestive heart failure Ventricular tachycardia (paroxysmal) Social History Smoking Status: Former smoker Tobacco Type: Cigarettes Second Hand Exposure: No; Do You Dip or Chew Tobacco: No; Tobacco Cessation Education Requested by Patient: No Hx Alcohol Use: Yes Alcohol type: other Hx Substance Use: Yes Last Used Substance: Days (ago) Substance Use Type Other:: medical marijuana Preferred Language: Djiboutian Communication Ability: Effective Senior [address] Engineer Required: No Beliefs That Will Affect Care: None Current Living Situation: Alone Current Living Situation Comment: From home alone 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 Other Information That Helps Us Care for You: No Feels Safe at Home: Yes Safety Concerns: Feels Safe At This Time Assistive Devices: CPAP and Glasses Allergies Allergies Allergy/AdvReac Type Severity Reaction Status Date / Time No Known Allergies Allergy Verified 07/01/22 17:45 Home Meds Home Medications Medication Instructions Recorded Confirmed acetaminophen 500 mg tablet 500 mg PO Q4H PRN Fever Or Pain 03/28/19 07/01/22 omega-3 fatty acids 1,250 mg 1,250 mg PO DAILY 03/28/19 07/01/22 capsule multivitamin 1 tab PO DAILY 12/01/19 07/01/22 cholecalciferol (vitamin D3) 50 50 mcg PO DAILY 04/05/21 07/01/22 mcg (2,000 unit) capsule atorvastatin 80 mg tablet 80 mg PO HS 10/13/21 07/01/22 allopurinol 300 mg tablet 300 mg PO DAILY 12/27/21 07/01/22 metolazone 5 mg tablet 5 mg PO DAILY PRN WT GAIN 12/27/21 07/01/22 aspirin 81 mg tablet,delayed 81 mg PO DAILY 04/07/22 07/01/22 release fluocinonide 0.05 % topical cream 1 applic topical BID PRN Skin 04/07/22 07/01/22 Irritation zinc acetate 25 mg (zinc) capsule 0 mg PO DAILY 04/07/22 07/01/22 guaifenesin 600 mg tablet, 600 mg PO Q12H PRN Congestion 05/26/22 07/01/22 extended release 12 hr (Mucinex) albuterol sulfate 90 mcg/actuation 2 puff inhalation Q4H PRN 07/01/22 07/01/22 aerosol inhaler Shortness Of Breath Or Wheezing Previous Rx's Medication Instructions Recorded Auto Titrating CPAP #1 ea 03/16/20 CPAP Supplies #1 ea 03/16/20 bumetanide 2 mg tablet 2 mg PO BID #60 tabs 10/05/20 blood sugar diagnostic (OneTouch #100 ea 04/08/22 Verio test strips) blood-glucose meter (OneTouch #1 ea 04/08/22 Verio Meter) lancets 33 gauge (OneTouch Delica #100 ea 04/08/22 Lancets) potassium chloride 20 mEq 40 meq PO BID #120 tabs 04/08/22 tablet,extended release(part/cryst) (Klor-Con M) amiodarone 400 mg tablet 400 mg PO QAM #90 tabs 05/09/22 spironolactone 25 mg tablet 12.5 mg PO DAILY #45 tabs 05/16/22 carvedilol 6.25 mg tablet 12.5 mg PO BID #180 tabs 06/06/22 mexiletine 200 mg capsule 200 mg PO Q8H #90 caps 06/06/22 hydrocodone-homatropine 5 mg-1.5 5 ml PO Q6H PRN cough #200 mL 06/29/22 mg/5 mL (5 mL) oral syrup (Hycodan) Results & Data (ED) Vital Signs Vital Signs - 24 hr 07/01/22 17:16 07/01/22 17:25 07/01/22 17:27 Temperature 36 C L Temperature Source Temporal Artery Scan Pulse Rate 103 H Pulse Rate from SpO2 Sensor Pulse Rhythm Respiratory Rate 22 Respiratory Effort / Characteristics Spontaneous Labored Respiratory Pattern Regular Blood Pressure 93/55 L Blood Pressure Mean 67 Pulse Oximetry 84 L 82 L Oxygen Delivery Method Room Air Oxymask Oxymask Oxygen Flow Rate 6 6 Sepsis Recent Fever Within 48 Hours No Sepsis New/Unexplained Change in Mental Status No Sepsis Action Taken by Nursing No Action Required Pulse Oximetry Post Tiitration 97 07/01/22 17:35 07/01/22 17:43 07/01/22 17:50 Temperature Temperature Source Pulse Rate 82 81 88 Pulse Rate from SpO2 Sensor 81 88 Pulse Rhythm Regular Respiratory Rate 22 25 H 30 H Respiratory Effort / Characteristics Respiratory Pattern Blood Pressure Blood Pressure Mean Pulse Oximetry 99 99 97 Oxygen Delivery Method Oxymask Oxygen Flow Rate 6 Sepsis Recent Fever Within 48 Hours Sepsis New/Unexplained Change in Mental Status Sepsis Action Taken by Nursing Pulse Oximetry Post Tiitration 07/01/22 18:06 07/01/22 18:09 07/01/22 18:09 Temperature Temperature Source Pulse Rate 82 86 Pulse Rate from SpO2 Sensor 82 85 Pulse Rhythm Respiratory Rate 22 26 H Respiratory Effort / Characteristics Respiratory Pattern Blood Pressure 103/65 Blood Pressure Mean 77 Pulse Oximetry 99 98 Oxygen Delivery Method Oxygen Flow Rate Sepsis Recent Fever Within 48 Hours Sepsis New/Unexplained Change in Mental Status Sepsis Action Taken by Nursing Pulse Oximetry Post Tiitration 07/01/22 18:10 07/01/22 18:20 07/01/22 18:30 Temperature Temperature Source Pulse Rate 84 81 Pulse Rate from SpO2 Sensor 86 81 Pulse Rhythm Respiratory Rate 25 H 23 Respiratory Effort / Characteristics Respiratory Pattern Blood Pressure 106/74 Blood Pressure Mean 84 Pulse Oximetry 100 99 Oxygen Delivery Method Oxygen Flow Rate Sepsis Recent Fever Within 48 Hours Sepsis New/Unexplained Change in Mental Status Sepsis Action Taken by Nursing Pulse Oximetry Post Tiitration 07/01/22 18:30 07/01/22 18:40 07/01/22 18:50 Temperature Temperature Source Pulse Rate 81 80 80 Pulse Rate from SpO2 Sensor 84 80 80 Pulse Rhythm Respiratory Rate 24 21 20 Respiratory Effort / Characteristics Respiratory Pattern Blood Pressure Blood Pressure Mean Pulse Oximetry 98 99 99 Oxygen Delivery Method Oxygen Flow Rate Sepsis Recent Fever Within 48 Hours Sepsis New/Unexplained Change in Mental Status Sepsis Action Taken by Nursing Pulse Oximetry Post Tiitration 07/01/22 19:00 07/01/22 19:00 07/01/22 19:10 Temperature Temperature Source Pulse Rate 80 80 Pulse Rate from SpO2 Sensor 80 80 Pulse Rhythm Respiratory Rate 19 18 Respiratory Effort / Characteristics Respiratory Pattern Blood Pressure 109/71 Blood Pressure Mean 83 Pulse Oximetry 100 99 Oxygen Delivery Method Oxygen Flow Rate Sepsis Recent Fever Within 48 Hours Sepsis New/Unexplained Change in Mental Status Sepsis Action Taken by Nursing Pulse Oximetry Post Tiitration 07/01/22 19:20 07/01/22 19:30 07/01/22 19:30 Temperature Temperature Source Pulse Rate 82 83 Pulse Rate from SpO2 Sensor 82 79 Pulse Rhythm Respiratory Rate 16 16 Respiratory Effort / Characteristics Respiratory Pattern Blood Pressure 108/58 L Blood Pressure Mean 74 Pulse Oximetry 98 97 Oxygen Delivery Method Oxygen Flow Rate Sepsis Recent Fever Within 48 Hours Sepsis New/Unexplained Change in Mental Status Sepsis Action Taken by Nursing Pulse Oximetry Post Tiitration 07/01/22 19:40 07/01/22 19:50 07/01/22 20:00 Temperature Temperature Source Pulse Rate 81 80 Pulse Rate from SpO2 Sensor 79 80 Pulse Rhythm Respiratory Rate 18 16 Respiratory Effort / Characteristics Respiratory Pattern Blood Pressure 112/64 Blood Pressure Mean 80 Pulse Oximetry 98 98 Oxygen Delivery Method Oxygen Flow Rate Sepsis Recent Fever Within 48 Hours Sepsis New/Unexplained Change in Mental Status Sepsis Action Taken by Nursing Pulse Oximetry Post Tiitration 07/01/22 20:00 Temperature Temperature Source Pulse Rate 80 Pulse Rate from SpO2 Sensor 80 Pulse Rhythm Respiratory Rate 24 Respiratory Effort / Characteristics Respiratory Pattern Blood Pressure Blood Pressure Mean Pulse Oximetry 99 Oxygen Delivery Method Oxygen Flow Rate Sepsis Recent Fever Within 48 Hours Sepsis New/Unexplained Change in Mental Status Sepsis Action Taken by Nursing Pulse Oximetry Post Tiitration Laboratory Data Attestation: I reviewed the patient's lab results. 07/01/22 17:45 07/01/22 17:45 Lab Results 07/01/22 07/01/22 07/01/22 Range/Units 17:45 17:45 17:45 WBC 8.60 (4.8-10.8) K/ul RBC 3.78 L (4.63-6.08) M/uL Hgb 11.5 L (14.0-18.0) g/dl Hct 34.1 L (40.1-51.0) % MCV 90.2 (80.0-100.0) fL MCH 30.4 (25.0-34.0) pg MCHC 33.7 (32.0-36.0) g/dL RDW Std Deviation 57.1 H (36.4-46.3) fL RDW Coeff of Kylee 17.9 H (11.5-14.5) % Plt Count 271 (130-400) K/uL MPV 10.0 (9.4-12.4) fL Immature Gran % (Auto) 0.5 % Neut % (Auto) 73.8 % Lymph % (Auto) 15.0 % [place] % (Auto) 9.3 % Eos % (Auto) 0.7 % Baso % (Auto) 0.7 % Neut # (Auto) 6.35 (1.4-6.5) K/uL Lymph # (Auto) 1.29 (1.2-3.4) K/uL [place] # (Auto) 0.80 (0.24-0.82) K/uL Eos # (Auto) 0.06 (0-0.50) K/uL Baso # (Auto) 0.06 (0-0.2) K/uL Immature Gran # (Auto) 0.04 H (0.00-0.02) K/uL Absolute Nucleated RBC 0.08 H (0-0) K/uL Nucleated RBC % (auto) 0.9 % Sodium 136 (136-145) mmol/L Potassium 4.7 (3.5-5.1) mmol/L Chloride 103 (98-107) mmol/L Carbon Dioxide 25 (21-32) mmol/L Anion Gap 8 (3-11) BUN 34 H (6-23) mg/dl Creatinine 1.65 H (0.6-1.4) mg/dl Est Cr Clr Drug Dosing 70.0 ml/min Est GFR ( Amer) 53.0 ml/min Est GFR (Non-Af Amer) 45.7 ml/min BUN/Creatinine Ratio 20.6 H (10-20) Glucose 162 H (70-99(Fasting)) mg/dl Calcium 9.3 (8.5-10.1) mg/dl Phosphorus 4.5 (2.5-4.9) mg/dl Magnesium 2.1 (1.7-2.4) mg/dl Total Bilirubin 3.5 H (0.2-1.0) mg/dl AST 38 (13-39) U/L ALT 24 (7-52) U/L Alkaline Phosphatase 74 (34-104) U/L Troponin I High Sens 26.8 H (0-20) pg/ml B-Natriuretic Peptide 398 H (0-100) pg/ml Total Protein 7.2 (6.0-8.3) gm/dl Albumin 4.1 (3.4-5.0) gm/dl Globulin 3.1 (2.5-4.0) gm/dl Albumin/Globulin Ratio 1.3 (0.9-2) Lipase 20 (11-82) U/L Procalcitonin (0-0.5) ng/ml SARS-CoV-2 (PCR) (Negative) Influenza Type A (PCR) (Neg) Influenza Type B (PCR) (Neg) RSV (RT-PCR) (Neg) 07/01/22 07/01/22 Range/Units 17:45 17:50 WBC (4.8-10.8) K/ul RBC (4.63-6.08) M/uL Hgb (14.0-18.0) g/dl Hct (40.1-51.0) % MCV (80.0-100.0) fL MCH (25.0-34.0) pg MCHC (32.0-36.0) g/dL RDW Std Deviation (36.4-46.3) fL RDW Coeff of Kylee (11.5-14.5) % Plt Count (130-400) K/uL MPV (9.4-12.4) fL Immature Gran % (Auto) % Neut % (Auto) % Lymph % (Auto) % [place] % (Auto) % Eos % (Auto) % Baso % (Auto) % Neut # (Auto) (1.4-6.5) K/uL Lymph # (Auto) (1.2-3.4) K/uL [place] # (Auto) (0.24-0.82) K/uL Eos # (Auto) (0-0.50) K/uL Baso # (Auto) (0-0.2) K/uL Immature Gran # (Auto) (0.00-0.02) K/uL Absolute Nucleated RBC (0-0) K/uL Nucleated RBC % (auto) % Sodium (136-145) mmol/L Potassium (3.5-5.1) mmol/L Chloride (98-107) mmol/L Carbon Dioxide (21-32) mmol/L Anion Gap (3-11) BUN (6-23) mg/dl Creatinine (0.6-1.4) mg/dl Est Cr Clr Drug Dosing ml/min Est GFR ( Amer) ml/min Est GFR (Non-Af Amer) ml/min BUN/Creatinine Ratio (10-20) Glucose (70-99(Fasting)) mg/dl Calcium (8.5-10.1) mg/dl Phosphorus (2.5-4.9) mg/dl Magnesium (1.7-2.4) mg/dl Total Bilirubin (0.2-1.0) mg/dl AST (13-39) U/L ALT (7-52) U/L Alkaline Phosphatase (34-104) U/L Troponin I High Sens (0-20) pg/ml B-Natriuretic Peptide (0-100) pg/ml Total Protein (6.0-8.3) gm/dl Albumin (3.4-5.0) gm/dl Globulin (2.5-4.0) gm/dl Albumin/Globulin Ratio (0.9-2) Lipase (11-82) U/L Procalcitonin 0.22 (0-0.5) ng/ml SARS-CoV-2 (PCR) NEGATIVE (Negative) Influenza Type A (PCR) Negative (Neg) Influenza Type B (PCR) Negative (Neg) RSV (RT-PCR) Positive A* (Neg) Administered Medications Albuterol (Albut/Ipratrop 3mg/0.5mg Neb 3 Ml Vial) 3 ml NEB Q4R PRN; Protocol PRN Reason: Shortness Of Breath Or Wheezing Stop: 07/31/22 21:43 Last Admin: 07/01/22 21:57 Dose: 3 ml Documented By: CS Atorvastatin Calcium (Atorvastatin 40 Mg Tab) 80 mg PO HS SANDHYA Stop: 07/31/22 21:43 Last Admin: 07/01/22 22:11 Dose: 80 mg Documented By: AMM Bumetanide (Bumetanide 1 Mg Tab) 2 mg PO BID SANDHYA Stop: 07/31/22 21:43 Last Admin: 07/01/22 22:17 Dose: Not Given Documented By: AMThiago Carvedilol (Carvedilol 12.5 Mg Tab) 12.5 mg PO BID SANDHYA Stop: 07/31/22 21:43 Last Admin: 07/01/22 22:11 Dose: 12.5 mg Documented By: AMThiago Enoxaparin Sodium (Enoxaparin Inj 40 Mg/0.4 Ml Syr) 40 mg SQ BID SANDHYA Stop: 07/31/22 21:59 Last Admin: 07/01/22 22:11 Dose: 40 mg Documented By: AMThiago Guaifenesin (Guaifenesin 600 Mg Tabcr) 600 mg PO Q12 SANDHYA Stop: 07/31/22 21:43 Last Admin: 07/01/22 22:10 Dose: 600 mg Documented By: AMThiago Potassium Chloride (Potassium Chloride Crtab 20 Meq Tabcr) 40 meq PO BID17 SANDHYA Stop: 07/31/22 21:43 Last Admin: 07/01/22 22:10 Dose: 40 meq Documented By: TOM Discontinued Medications Albuterol (Albut/Ipratrop 3mg/0.5mg Neb 3 Ml Vial) 3 ml NEB NOW STA; Protocol Stop: 07/01/22 17:33 Last Admin: 07/01/22 17:40 Dose: 3 ml Documented By: LILLIE Guaifenesin (Guaifenesin 600 Mg Tabcr) 1,200 mg PO NOW STA Stop: 07/01/22 17:33 Last Admin: 07/01/22 17:39 Dose: 1,200 mg Documented By: LILLIE Bumetanide 2 mg/ Syringe 8 mls @ 4 mls/min IV ONE ONE Stop: 07/01/22 22:31 Last Admin: 07/01/22 23:05 Dose: 4 mls/min Documented By: TOM Methylprednisolone (Methylprednisolone 125 Mg/2 Ml Vial) 125 mg IV NOW STA Stop: 07/01/22 17:33 Last Admin: 07/01/22 17:48 Dose: 125 mg Documented By: LILLIE Imaging Data Radiologist's Impression: Chest X-Ray 07/01/22 17:31 XR chest 1V portable HISTORY: 57 years-old Male sob acute shortness of breath COMPARISON: Chest radiograph June 29, 2022 TECHNIQUE: AP view of the chest FINDINGS: Cardiac silhouette is enlarged. Left subclavian pacer/AICD. Pulmonary vascular congestion with mildly decreased interstitial coarsening. Trace pleural effusions suggested. No pneumothorax. Bones appear grossly intact. IMPRESSION: 1. Cardiomegaly and pulmonary vascular congestion with mildly improved pulmonary edema. 2. Probable trace pleural effusions. ACT 112: Negative or not required by law. The above report was generated using voice recognition software. It may contain grammatical, syntax or spelling errors. Electronically signed by: Armaan Sher M.D. 07/01/2022 6:04 PM Discharge Plan Visit Data Chief Complaint: Shortness of Breath/Dyspnea Stated Complaint: SOB, LOW OXYGEN, HAS HEART CONDITION ED Provider: Lars Costa Discharge Problem: Hypoxia, Restrictive lung disease, RSV infection Patient Disposition: Admitted As Inpatient Discharge Instructions Interventions: ED Discharge Assessment Last Done: 07/01/22 21:03
[2022-07-01 18:46] LABS: Influenza A virus by PCR Negative (Neg); Influenza B virus by PCR Negative (Neg); SARS CoV2 RNA(COVID-19) Ceph NEGATIVE (Negative)
[2022-07-01 19:03] LABS: RSV by PCR Positive (Neg)
[2022-07-01 19:10] LABS: Albumin Globulin Ratio 1.3 (0.9-2); Albumin Level 4.1 gm/dl (3.4-5.0); BUN Creatinine Ratio 20.6 (10-20); Bilirubin,Total 3.5 mg/dl (0.2-1.0); Calcium 9.3 mg/dl (8.5-10.1); Est GFR (Non-African American) 45.7 ml/min; Globulin 3.1 gm/dl (2.5-4.0); Magnesium 2.1 mg/dl (1.7-2.4); Phosphorus 4.5 mg/dl (2.5-4.9); Potassium 4.7 mmol/L (3.5-5.1); Total Protein 7.2 gm/dl (6.0-8.3)
[2022-07-01 19:14] LABS: Troponin I High Sensitivity 26.8 pg/ml (0-20)
--- NOTE | 2022-07-01 20:31 | History & Physical Report ---
Date of Service July 01, 2022 Assessment & Plan (1) Hypoxia: Plan: Patient is a 57-year-old male with a past medical history of DM 2, hyperlipidemia, mitral regurgitation, HFrEF, obstructive sleep apnea, morbid obesity, AICD present, nonischemic cardiomyopathy, and hypertension who presents to the emergency department for chief complaint and of shortness of breath especially with exertion. Patient is status post steroids and DuoNeb treatment and currently on oxymask supplementation and is currently hemodynamically stable. -Admit to telemetry -Hypoxia likely multifactorial RSV on top of mildly exacerbated CHF plus restrictive lung disease due to body habitus -Continue supplemental oxygen and titrate as tolerated -DuoNeb treatment every 4 hours as needed for wheezing/shortness of breath -We will hold off additional steroids for now. -CPAP at night due to obstructive sleep apnea, may need to use BiPAP given hypoxia. -Incentive spirometry every hour -Pulmonary toilet -We will give IV Bumex 2 mg to help pull off additional pulmonary edema -Accurate I's and O's, daily weights, monitor creatinine. (2) Respiratory syncytial virus (RSV): Plan: -See plan above -Mucinex, flonase -zofran prn (3) Diabetes mellitus type 2 in obese: Plan: -Last A1c in May was 5.8 -Patient does not have any DM meds on med list, for this reason we will only do sliding scale without basal bolus insulin. -Elevated POC glucose checks likely secondary to glucocorticoid administration in the ED. -Monitor glucose ACHS -Hypoglycemia protocol (4) Dyslipidemia: Plan: -Continue atorvastatin (5) Mitral regurgitation: Plan: -Last echocardiogram on 09/2021 -Due to fluid overload currently, will order echocardiogram for in the morning. (6) Acute exacerbation of congestive heart failure: Plan: - Recheck echocardiogram in the morning as above -We will give an additional 2 mg of Bumex IV tonight, otherwise continue Bumex 2 mg p.o. twice daily daily -If no improvement, consider adding metolazone 30 minutes to 1 hour prior to Bumex for additional diuresis -Continue compression stockings -Cardiology consulted due to multiple concerns regarding amiodarone use including low TSH, elevated bilirubin and difficulty with breathing, appreciate recommendations. -Daily CMP -continue daily K supplement (7) Obstructive sleep apnea of adult: Plan: -CPAP at night -If poor oxygen saturation at night, may need to consider BiPAP (8) Restrictive lung disease: Plan: -Secondary to body habitus -Continue incentive spirometry (9) AICD (automatic cardioverter/defibrillator) present: Plan: -In place due to runs of V. fib and V. tach -Last shock was given 1 month ago -Continue to monitor on telemetry -Continue amiodarone. Mexiletine is in the patient's chart, however, patient reports that he no longer takes this medication. We will hold off for now. -Per chart review, cardiology's last note stated that he should be on mexiletine in addition to amiodarone. (10) Low TSH level: Plan: -Noticed on chart review that TSH was low in March and May 2022 without checking T4 -Wonder if this is secondary to the amiodarone use chronically -We will recheck TSH and T4 in the morning (11) Elevated bilirubin: Plan: -Chronic issue but unsure to etiology has not been noted in chart review -Right upper quadrant ultrasound in the morning -Again secondary to amiodarone use chronically? -Recheck CMP in AM Dispo: Admit to telemetry Diet: Carb consistent, low-sodium DVT prophylaxis: Lovenox CODE STATUS: Full code History of Present Illness Chief Complaint: Shortness of breath Primary Care Provider: Tamar Gera Patient is a 57-year-old male with a past medical history of DM 2, hyperlipidemia, mitral regurgitation, HFrEF, obstructive sleep apnea, morbid obesity, AICD present, nonischemic cardiomyopathy, and hypertension who presents to the emergency department for chief complaint and of shortness of breath especially with exertion. Patient reports for the past week or so he has noticed worsening cold-like symptoms and shortness of breath. He reported to the emergency room for these reasons on 06/29/2022 where he was given conservative treatment with supplemental oxygen as well as IV fluids. There was an attempt to get him outpatient oxygen but this was not able to be done. He was discharged home and instructed if his symptoms worsened that he should return to the emergency room for further evaluation. Today, he noted that it wa s very difficult for him to catch his breath especially with ambulating up a flight of stairs. He states that his weight is actually a little low for him if not at baseline. He denies any chest pain. He reports that his AICD has not shocked him for the past month. Of note, he reports that he has been having some shortness of breath issues since Thanksgiving as he had COVID at the time and his symptoms ultimately started to improve, however, with this new diagnosis of RSV, his symptoms have progressively worsened which brings him here today. Patient denies any nausea or vomiting. Does note that he has loose stools daily for the past 4 to 5 days otherwise has no other complaints at this time. ED course: In the triage area, was found to the patient's pulse ox was down in the low 80s. He was put on oxygen supplementation which improved it to the mid 90s. He was brought back and evaluated by one of the ED providers who ordered labs and imaging. Our creatinine of 1.65 (baseline of 1.1-1.3), total bilirubin of 3.5, high-sensitivity troponin of 26.8, BNP of 398, and a reconfirmed RSV positive test. Chest x-ray was obtained and showed pulmonary congestion with cardiomegaly which is mildly improved from his visit on 06/29/2022. Patient was given Mucinex, DuoNeb, and methylprednisolone. Patient is currently feeling more comfortable and is on oxygen mask and saturating well on 6 L. It is at this time that the hospitalist service was consulted for evaluation admission to the hospital for care. Allergies Allergy/AdvReac Type Severity Reaction Status Date / Time No Known Allergies Allergy Verified 07/01/22 17:45 Home Medications Medication Instructions Recorded Confirmed Type acetaminophen 500 mg tablet 500 mg PO Q4H PRN Fever Or Pain 03/28/19 07/01/22 History omega-3 fatty acids 1,250 mg 1,250 mg PO DAILY 03/28/19 07/01/22 History capsule multivitamin 1 tab PO DAILY 12/01/19 07/01/22 History Auto Titrating CPAP #1 ea 03/16/20 06/21/22 Rx CPAP Supplies #1 ea 03/16/20 06/21/22 Rx bumetanide 2 mg tablet 2 mg PO BID #60 tabs 10/05/20 07/01/22 Rx cholecalciferol (vitamin D3) 50 50 mcg PO DAILY 04/05/21 07/01/22 History mcg (2,000 unit) capsule atorvastatin 80 mg tablet 80 mg PO HS 10/13/21 07/01/22 History allopurinol 300 mg tablet 300 mg PO DAILY 12/27/21 07/01/22 History metolazone 5 mg tablet 5 mg PO DAILY PRN WT GAIN 12/27/21 07/01/22 History aspirin 81 mg tablet,delayed 81 mg PO DAILY 04/07/22 07/01/22 History release fluocinonide 0.05 % topical cream 1 applic topical BID PRN Skin 04/07/22 07/01/22 History Irritation zinc acetate 25 mg (zinc) capsule 0 mg PO DAILY 04/07/22 07/01/22 History blood sugar diagnostic (OneTouch #100 ea 04/08/22 05/26/22 Rx Verio test strips) blood-glucose meter (OneTouch #1 ea 04/08/22 05/26/22 Rx Verio Meter) lancets 33 gauge (OneTouch Delica #100 ea 04/08/22 05/26/22 Rx Lancets) potassium chloride 20 mEq 40 meq PO BID #120 tabs 04/08/22 07/01/22 Rx tablet,extended release(part/cryst) (Klor-Con M) amiodarone 400 mg tablet 400 mg PO QAM #90 tabs 05/09/22 07/01/22 Rx spironolactone 25 mg tablet 12.5 mg PO DAILY #45 tabs 05/16/22 07/01/22 Rx guaifenesin 600 mg tablet, 600 mg PO Q12H PRN Congestion 05/26/22 07/01/22 History extended release 12 hr (Mucinex) carvedilol 6.25 mg tablet 12.5 mg PO BID #180 tabs 06/06/22 07/01/22 Rx mexiletine 200 mg capsule 200 mg PO Q8H #90 caps 06/06/22 07/01/22 Rx hydrocodone-homatropine 5 mg-1.5 5 ml PO Q6H PRN cough #200 mL 06/29/22 07/01/22 Rx mg/5 mL (5 mL) oral syrup (Hycodan) albuterol sulfate 90 mcg/actuation 2 puff inhalation Q4H PRN 07/01/22 07/01/22 History aerosol inhaler Shortness Of Breath Or Wheezing Past Med/Surg History Medical History (Updated 07/01/22 @ 20:29 by Greg Perry DO) Cardiomyopathy, nonischemic Diabetes mellitus type 2 in obese 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 Dyslipidemia Elevated bilirubin Former smoker Hemoptysis Metabolic syndrome Non-rheumatic mitral regurgitation Obesity, morbid, BMI 40.0-49.9 Obstructive sleep apnea of adult Shortness of breath Systolic congestive heart failure Ventricular tachycardia (paroxysmal) Social History Smoking Status: Former smoker Tobacco Type: Cigarettes Second Hand Exposure: No; Hx Alcohol Use: Yes Alcohol type: beer Hx Substance Use: Yes Last Used Substance: Unknown Substance Use Type Other:: medical marijuana Preferred Language: Icelandic Communication Ability: Effective Lug Loader Required: No Beliefs That Will Affect Care: None Current Living Situation: Alone 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 Feels Safe at Home: Yes Assistive Devices: None Review of Systems Review of Systems: All systems reviewed & are unremarkable except as noted in HPI & below Physical Exam Constitutional: well developed, well nourished and + obese Eyes: + scleral abnormality (Scleral icterus noted.) Neck: trachea midline, no thyromegaly + thick neck Respiratory: normal respiratory effort and + prolonged expiratory phase; no respiratory distress Auscultation: + wheezes Cardiovascular: Rate/Rhythm: regular rate Extremities: + edema Gastrointestinal (Abdomen): Percussion/Palpation: abdomen soft and + hepatomegaly; abdomen nontender Musculoskeletal: Head/Neck/Chest: normocephalic and head atraumatic Skin: + jaundice Neurologic: moves all extremities Psychiatric: A+Ox3, euthymic affect Results & Data Results & Data ([facility]) Vital Signs (Past 12 Hours) Vital Signs Temp Pulse Resp BP Pulse Ox O2 Del Method O2 Flow Rate 07/01/22 20:00 80 24 99 07/01/22 20:00 112/64 07/01/22 19:50 80 16 98 07/01/22 19:40 81 18 98 07/01/22 19:30 83 16 97 07/01/22 19:30 108/58 L 07/01/22 19:20 82 16 98 07/01/22 19:10 80 18 99 07/01/22 19:00 80 19 100 07/01/22 19:00 109/71 07/01/22 18:50 80 20 99 07/01/22 18:40 80 21 99 07/01/22 18:30 81 24 98 07/01/22 18:30 106/74 07/01/22 18:20 81 23 99 07/01/22 18:10 84 25 H 100 07/01/22 18:09 103/65 07/01/22 18:09 86 26 H 98 07/01/22 18:06 82 22 99 07/01/22 17:50 88 30 H 97 07/01/22 17:43 81 25 H 99 07/01/22 17:35 82 22 99 Oxymask 6 07/01/22 17:27 Oxymask 6 07/01/22 17:25 82 L Oxymask 6 07/01/22 17:16 36 C L 103 H 22 93/55 L 84 L Room Air Code Status & VTE Plan VTE Prophylaxis Plan VTE Prophylaxis will be ordered: Yes
[2022-07-01] MEDS ORDERED: DEXTROSE 50% 50 ML SYRINGE IV PRN (21:44)
[2022-07-01] MEDS ORDERED: GLUCAGON FOR INJ 1 MG VIAL SQ PRN (21:44)
[2022-07-01] MEDS ORDERED: GLUCOSE 10 TAB/TUBE PO PRN (21:44)
[2022-07-01] MEDS ORDERED: CARBOHYDRATES FOR HYPOGLYCEMIA PO PRN (21:44)
[2022-07-01] MEDS ORDERED: GLUCOSE 40% GEL 15 GM TUBE PO PRN (21:44)
[2022-07-01] MEDS ORDERED: ONDANSETRON INJ 2 MG/ML 2 ML VIAL IV PRN (21:44)
[2022-07-01] MEDS: ALBUT/IPRATROP 3MG/0.5MG NEB 3 ML VIAL NEB PRN (21:57)
[2022-07-01] MEDS: guaiFENesin 600 MG TABCR PO SCH (22:10)
[2022-07-01] MEDS: BUMETANIDE 1 MG TAB PO SCH ×2 (22:10→22:17)
[2022-07-01] MEDS: POTASSIUM CHLORIDE CRTAB 20 MEQ TABCR PO SCH (22:10)
[2022-07-01] MEDS: ENOXAPARIN INJ 40 MG/0.4 ML SYR SQ SCH (22:11)
[2022-07-01] MEDS: ATORVASTATIN 40 MG TAB PO SCH (22:11)
[2022-07-01] MEDS: carvediloL 12.5 MG TAB PO SCH (22:11)
[2022-07-01] MEDS ORDERED: BUMETANIDE 2 MG in SYRINGE 0 ML IV ONE (22:30)
--- NOTE | 2022-07-01 23:38 | Ultrasound Report ---
ULTRASOUND RIGHT UPPER QUADRANT ABDOMEN CLINICAL HISTORY: Elevated bilirubin. COMPARISON STUDY: Abdominal CT dated 12/01/2019. TECHNIQUE: Real-time, grayscale, and color flow sonography of the right upper quadrant of the abdomen was performed. Images are reviewed in the transverse and longitudinal planes. FINDINGS: Liver: The liver is enlarged, measuring 25 cm in craniocaudal length. Echotexture is heterogeneous. T here is no intrahepatic biliary ductal dilatation. The main portal vein is patent. Gallbladder: There are shadowing gallstones. The gallbladder is mildly contracted. The gallbladder wa ll is prominent, measuring up to 3 mm. No pericholecystic fluid is seen. A sonographic Carlisle's sign is reportedly absent. The common bile duct measures up to 0.3 cm in diameter. Pancreas: Visualized portions of the pancreatic head are normal in appearance. The majority of the pa ncreas is obscured by overlying bowel gas. Right kidney: Survey images of the right kidney demonstrate cortical atrophy. Echotexture there is no rmal. There is no hydronephrosis. A 3.9 cm cyst arises from the interpolar right kidney. Ascites: None. IMPRESSION: 1. Cholelithiasis without sonographic evidence of acute cholecystitis. 2. No intra or extrahepatic biliary ductal dilatation is seen. 3. The liver is enlarged and likely steatotic. ACT 112: Negative or not required by law. Electronically signed by: Blanco Bazan M.D. 07/01/2022 11:37 PM
[2022-07-02 07:40] LABS: Hematocrit (blood only) 34.2 % (40.1-51.0); Hemoglobin 11.3 g/dl (14.0-18.0); Mean Corpuscular Hemoglobin 30.1 pg (25.0-34.0); Mean Platelet Volume 9.8 fL (9.4-12.4); Nucleated RBC # (auto) 0.02 K/uL (0-0); Nucleated RBC % (auto) 0.3 %; Platelet Count 221 K/uL (130-400); RDW Coefficient of Variation 17.7 % (11.5-14.5); RDW Standard Deviation 56.8 fL (36.4-46.3); Red Blood Count 3.76 M/uL (4.63-6.08); White Blood Count 6.82 K/ul (4.8-10.8)
[2022-07-02 08:01] LABS: Albumin Globulin Ratio 1.3 (0.9-2); Albumin Level 3.9 gm/dl (3.4-5.0); BUN Creatinine Ratio 24.6 (10-20); Bilirubin Direct 0.7 mg/dl (0-0.2); Bilirubin,Total 2.5 mg/dl (0.2-1.0); Calcium 9.4 mg/dl (8.5-10.1); Est GFR (African American) 49.4 ml/min; Est GFR (Non-African American) 42.6 ml/min; Magnesium 2.3 mg/dl (1.7-2.4); Total Protein 6.9 gm/dl (6.0-8.3)
[2022-07-02 08:17] LABS: Thyroid Stimulating Hormone 0.061 uIu/ml (0.300-4.500)
[2022-07-02 08:19] LABS: T4 Free Thyroxine 1.72 ng/dl (0.61-1.60)
[2022-07-02] MEDS: CHOLECALCIFEROL 1,000 UNITS 25 MCG TAB PO SCH (08:32)
[2022-07-02] MEDS: allopurinoL 300 MG TAB PO SCH (08:32)
[2022-07-02] MEDS: SPIRONOLACTONE 12.5 MG TAB PO SCH (08:32)
[2022-07-02] MEDS: ASPIRIN 81 MG ECTAB PO SCH (08:32)
[2022-07-02] MEDS: AMIODARONE 200 MG TAB PO SCH (08:32)
[2022-07-02] MEDS: POTASSIUM CHLORIDE CRTAB 20 MEQ TABCR PO SCH ×2 (08:33→18:16)
[2022-07-02] MEDS: BUMETANIDE 1 MG TAB PO SCH ×2 (08:33→20:10)
[2022-07-02] MEDS: FLUTICASONE PROPIONATE NA SPR 16 GM BTL SCH (08:33)
[2022-07-02] MEDS: guaiFENesin 600 MG TABCR PO SCH ×2 (08:33→20:11)
[2022-07-02] MEDS: carvediloL 12.5 MG TAB PO SCH ×2 (08:33→20:11)
[2022-07-02] MEDS: ENOXAPARIN INJ 40 MG/0.4 ML SYR SQ SCH ×2 (08:34→20:10)
[2022-07-02] MEDS: INSULIN ASPART PER UNIT SC SCH ×4 (08:43→21:43)
[2022-07-02] MEDS ORDERED: FLUARIX QUADRIVALENT 0.5 ML SYR IM ONE (09:00)
[2022-07-02] MEDS ORDERED: PNEUMOCOCCAL POLYSACCHARIDES 25 MCG/0.5 ML VIAL/SYR IM ONE (09:00)
--- NOTE | 2022-07-02 10:28 | Cardiology Consultation ---
Date of Consultation July 02, 2022 Assessment & Plan (1) Congestive heart failure with left ventricular diastolic dysfunction: (2) Amiodarone toxicity: (3) Ventricular fibrillation: (4) AICD (automatic cardioverter/defibrillator) present: Plan 1. Congestive heart failure: I doubt he has significant congestive heart failure currently, as noted in my HPI it appears that his weight is down, his creatinine is up and his chest x-ray does not show worsening CHF. I think he is actually over diuresed and prerenal. I would not continue diuresis. I do not think his hypoxia is CHF related. I agree an echocardiogram would be helpful. 2. Amiodarone toxicity: It is unlikely he has amiodarone toxicity. His levels from a month ago (on steady state amiodarone 400 mg daily) are low, and although this does not correlate well with toxicity typically toxicity is of concern when the level rises to 4 times the level in May. Amiodarone has an extremely variable absorption and I suspect he does not absorb it well, that is not an abnormality it is part of the pharmacokinetics of amiodarone. That said, amiodarone pulmonary toxicity is very difficult to diagnose, and based on the kinetics of the drug it would be safe to stop it for now but since he needs it for his ventricular arrhythmia we need to make sure it does not get lost and discontinued from his regimen for a long period of time. Several days would certainly not be an issue. 3. Ventricular fibrillation: We had started mexiletine to control his ventricular arrhythmia (on top of amiodarone), I understand he is no longer on it. If he has recurrence we can restart it. He is scheduled to see [facility] for other modalities of treatment. 4. ICD: I did not interrogate his ICD but it has been functioning well and we do remote monitoring. History of Present Illness Reason for Consultation: CHF Attending Physician: Abby Baldwin MD History of Present Illness This is a 57-year-old male with a nonischemic cardiomyopathy for which he had a dual-chamber defibrillator implanted. He continues to have episodes of paroxysmal ventricular tachycardia or ventricular fibrillation, he is on amiodarone 400 mg daily for treatment of his ventricular arrhythmia and he has an appointment at [facility] for July 2022. His last episode was mid May 2022. He presented to the emergency room with shortness of breath on June 29, 2022 and was diagnosed with RSV. He was sent home from the emergency room however presented again July 01, 2022 with hypoxia (oxygen saturation in the low 80s on room air). He is felt to have fluid overload currently additionally. As near as I can tell from the chart his amiodarone has been at 400 mg daily since at least November 2021, he is therefore at steady state on this dose, an amiodarone level was done on June 06, 2022 was 0.8 with a does of full amiodarone of 0.6. These are low levels indicative of poor absorption. Review of weights shows that he is around 140 to 141 kg currently, his weight June 29 is less than 129 kg which must be a mistake. In mid May his weight was around 145 kg although there were probably some erroneous numbers there as well. His chest x-ray from June 29, 2022 was read as mild pulmonary edema, however a chest x-ray July 01, 2022 is felt to be somewhat improved. His creatinine this morning is 1.75 (after some diuresis I believe), June 06 it was 1.16, June 29 it was 1.44 and July 01 was 1.65. This suggests overdiuresis. Allergies Allergy/AdvReac Type Severity Reaction Status Date / Time No Known Allergies Allergy Verified 07/01/22 17:45 Home Medications Medication Instructions Recorded Confirmed Type acetaminophen 500 mg tablet 500 mg PO Q4H PRN Fever Or Pain 03/28/19 07/01/22 History omega-3 fatty acids 1,250 mg 1,250 mg PO DAILY 03/28/19 07/01/22 History capsule multivitamin 1 tab PO DAILY 12/01/19 07/01/22 History Auto Titrating CPAP #1 ea 03/16/20 06/21/22 Rx CPAP Supplies #1 ea 03/16/20 06/21/22 Rx bumetanide 2 mg tablet 2 mg PO BID #60 tabs 10/05/20 07/01/22 Rx cholecalciferol (vitamin D3) 50 50 mcg PO DAILY 04/05/21 07/01/22 History mcg (2,000 unit) capsule atorvastatin 80 mg tablet 80 mg PO HS 10/13/21 07/01/22 History allopurinol 300 mg tablet 300 mg PO DAILY 12/27/21 07/01/22 History metolazone 5 mg tablet 5 mg PO DAILY PRN WT GAIN 12/27/21 07/01/22 History aspirin 81 mg tablet,delayed 81 mg PO DAILY 04/07/22 07/01/22 History release fluocinonide 0.05 % topical cream 1 applic topical BID PRN Skin 04/07/22 07/01/22 History Irritation zinc acetate 25 mg (zinc) capsule 0 mg PO DAILY 04/07/22 07/01/22 History blood sugar diagnostic (OneTouch #100 ea 04/08/22 05/26/22 Rx Verio test strips) blood-glucose meter (OneTouch #1 ea 04/08/22 05/26/22 Rx Verio Meter) lancets 33 gauge (OneTouch Delica #100 ea 04/08/22 05/26/22 Rx Lancets) potassium chloride 20 mEq 40 meq PO BID #120 tabs 04/08/22 07/01/22 Rx tablet,extended release(part/cryst) (Klor-Con M) amiodarone 400 mg tablet 400 mg PO QAM #90 tabs 05/09/22 07/01/22 Rx spironolactone 25 mg tablet 12.5 mg PO DAILY #45 tabs 05/16/22 07/01/22 Rx guaifenesin 600 mg tablet, 600 mg PO Q12H PRN Congestion 05/26/22 07/01/22 History extended release 12 hr (Mucinex) carvedilol 6.25 mg tablet 12.5 mg PO BID #180 tabs 06/06/22 07/01/22 Rx mexiletine 200 mg capsule 200 mg PO Q8H #90 caps 06/06/22 07/01/22 Rx hydrocodone-homatropine 5 mg-1.5 5 ml PO Q6H PRN cough #200 mL 06/29/22 07/01/22 Rx mg/5 mL (5 mL) oral syrup (Hycodan) albuterol sulfate 90 mcg/actuation 2 puff inhalation Q4H PRN 07/01/22 07/01/22 History aerosol inhaler Shortness Of Breath Or Wheezing Patient History Medical History Cardiomyopathy, nonischemic Diabetes mellitus type 2 in obese 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 Dyslipidemia Elevated bilirubin Former smoker Hemoptysis Metabolic syndrome Non-rheumatic mitral regurgitation Obesity, morbid, BMI 40.0-49.9 Obstructive sleep apnea of adult Shortness of breath Systolic congestive heart failure Ventricular tachycardia (paroxysmal) Social History Smoking Status: Former smoker Tobacco Type: Cigarettes Second Hand Exposure: No; Do You Dip or Chew Tobacco: No; Tobacco Cessation Education Requested by Patient: No Hx Alcohol Use: Yes Alcohol type: other Hx Substance Use: Yes Last Used Substance: Days (ago) Substance Use Type Other:: medical marijuana Preferred Language: Korean Communication Ability: Effective Hearing Impaired Itinerant Teacher Required: No Beliefs That Will Affect Care: None Current Living Situation: Alone Current Living Situation Comment: From home alone 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 Results & Data ([facility]) Vital Signs (Past 12 Hours) Vital Signs Temp Pulse Pulse Resp BP Pulse Ox O2 Del Method 07/02/22 08:00 Nasal Cannula 07/02/22 07:00 82 07/02/22 07:32 36.7 C 84 20 90/61 L 98 BiPAP 07/02/22 04:17 102/78 07/02/22 03:52 37.1 C 80 18 86/42 L 96 BiPAP 07/01/22 23:05 36.7 C 80 18 103/71 98 Room Air O2 Flow Rate 07/02/22 08:00 5 07/02/22 07:00 07/02/22 07:32 07/02/22 04:17 07/02/22 03:52 5 07/01/22 23:05 Laboratory Results Cardiac Enzymes 07/01/22 07/01/22 07/02/22 Range/Units 17:45 17:45 07:17 AST 38 26 (13-39) U/L Troponin I High Sens 26.8 H (0-20) pg/ml B-Natriuretic Peptide 398 H (0-100) pg/ml Coagulation 07/01/22 Range/Units 17:45 B-Natriuretic Peptide 398 H (0-100) pg/ml CBC 07/01/22 07/02/22 Range/Units 17:45 07:17 WBC 8.60 6.82 (4.8-10.8) K/ul RBC 3.78 L 3.76 L (4.63-6.08) M/uL Hgb 11.5 L 11.3 L (14.0-18.0) g/dl Hct 34.1 L 34.2 L (40.1-51.0) % Plt Count 271 221 (130-400) K/uL Neut # (Auto) 6.35 (1.4-6.5) K/uL Lymph # (Auto) 1.29 (1.2-3.4) K/uL [place] # (Auto) 0.80 (0.24-0.82) K/uL Eos # (Auto) 0.06 (0-0.50) K/uL Baso # (Auto) 0.06 (0-0.2) K/uL Comprehensive Metabolic Panel 07/01/22 07/02/22 Range/Units 17:45 07:17 Sodium 136 139 (136-145) mmol/L Potassium 4.7 5.0 (3.5-5.1) mmol/L Chloride 103 103 (98-107) mmol/L Carbon Dioxide 25 29 (21-32) mmol/L BUN 34 H 43 H (6-23) mg/dl Creatinine 1.65 H 1.75 H (0.6-1.4) mg/dl Glucose 162 H 222 H (70-99(Fasting)) mg/dl Calcium 9.3 9.4 (8.5-10.1) mg/dl Direct Bilirubin 0.7 H (0-0.2) mg/dl AST 38 26 (13-39) U/L ALT 24 23 (7-52) U/L Alkaline Phosphatase 74 70 (34-104) U/L Total Protein 7.2 6.9 (6.0-8.3) gm/dl Albumin 4.1 3.9 (3.4-5.0) gm/dl Intake and Output 07/01/22 07/02/22 07/02/22 22:59 06:59 14:59 Intake Total 120 / 810 690 / 810 Output Total 425 / 425 Balance 120 / 385 265 / 385 Intake: Oral 120 / 810 690 / 810 Output: Urine 425 / 425 Other: Weight 140.5 kg 141.3 kg Weight Measurement Method [facility] Diagnostic Findings His electrocardiogram on presentation demonstrates atrial pacing with intact AV conduction. His QRS complex is somewhat wide, which may be intrinsic or somewhat related to amiodarone. It is a nonspecific IVCD. Telemetry: Sinus rhythm with first-degree AV block, heart rate in the 80s. PG Care Time/CCT Total # of Minutes Spent Total Time Spent with Patient: Total time spent is greater than 50% in coordination of care (as documented) at patient's floor/unit and/or counseling patient: Coding Level of Care Code 20492 INT INP/OBS CARE MIN Diagnoses Congestive heart failure with left ventricular diastolic dysfunction I50.32 Congestive heart failure chronicity: chronic Amiodarone toxicity T46.2X1A Encounter type: initial encounter Injury intent: accidental or unintentional Ventricular fibrillation I49.01 AICD (automatic cardioverter/defibrillator) present Z95.810 (1) Congestive heart failure with left ventricular diastolic dysfunction Congestive heart failure chronicity: chronic Qualified Code(s): I50.32 - Chronic diastolic (congestive) heart failure (2) Amiodarone toxicity Encounter type: initial encounter Injury intent: accidental or unintentional Qualified Code(s): T46.2X1A - Poisoning by other antidysrhythmic drugs, accidental (unintentional), initial encounter
[2022-07-02] MEDS: ALBUT/IPRATROP 3MG/0.5MG NEB 3 ML VIAL NEB PRN ×4 (12:03→23:11)
--- NOTE | 2022-07-02 15:28 | Hospitalist Progress Note ---
Date of Service July 02, 2022 Assessment & Plan (1) Hypoxia: Plan: Patient is a 57-year-old male with a past medical history of DM 2, hyperlipidemia, mitral regurgitation, HFrEF, obstructive sleep apnea, morbid obesity, AICD present, nonischemic cardiomyopathy, and hypertension who presents to the emergency department for chief complaint and of shortness of breath especially with exertion -Found to be hypoxic on admission -Tested positive for RSV -Chest x ray showed Cardiomegaly and pulmonary vascular congestion with mildly improved pulmonary edema. -Started on nasal oxygen, given Bumex -Currently, says SOB is much improved -Continue oxygen, wean as tolerated (2) RSV infection: Plan: Tested positive for RSV Symptomatic management (3) Congestive heart failure with left ventricular diastolic dysfunction: Plan: No evidence of acute exacerbation will continue home meds Repeat ECHO pending appreciate cardiology monitor I/O, daily weight (4) HTN (hypertension): Plan: stable continue home meds (5) Diabetes mellitus type 2 in obese: Plan: Blood glucose is under good control continue insulin sliding scale (6) Obesity, morbid, BMI 40.0-49.9: Plan: adviced on lifestyle changes (7) Obstructive sleep apnea of adult: (8) AICD (automatic cardioverter/defibrillator) present: (9) Restrictive lung disease: Plan continue hospitalization Admission and Anticipated Discharge Date Admission Date: July 01, 2022 Subjective patient seen and examined, SOB is better Review of Systems Review of Systems: All systems reviewed are negative, apart from the ones contained in the history. Physical Exam Physical Exam: The patient is awake, alert and oriented 3, well developed and well nourished, normocephalic and atraumatic, lying in bed and in no acute distress. HEENT--PERRL, EOMI, mucous membranes and oropharynx mildly dry Neck--supple. No JVD. No bruits. Thyroid normal, trachea midline, no adenopathy. Heart--normal S1 and S2. No murmurs, rubs or gallops. Lungs--clear bilaterally, no respiratory distress, no accessory muscle use. Abdomen--normal bowel sounds and soft. Mild epigastric and left sided abdominal pain Extremities--no cyanosis or clubbing. No edema. Dermatologic--normal skin turgor, normal color, no abnormal lymph nodes, no rash. Neurologic--cranial nerves II through XII grossly intact. Rheumatologic--normal range of motion. Psychiatric--normal affect. Results & Data Results & Data ([facility]) Vital Signs (Past 12 Hours) Vital Signs Temp Pulse Pulse Resp BP Pulse Ox O2 Del Method 07/02/22 12:04 78 24 97 Nasal Cannula 07/02/22 11:20 97.5 F L 82 17 111/72 98 Nasal Cannula 07/02/22 08:00 Nasal Cannula 07/02/22 07:00 82 07/02/22 07:32 98.1 F 84 20 90/61 L 98 BiPAP 07/02/22 04:17 102/78 07/02/22 03:52 98.8 F 80 18 86/42 L 96 BiPAP O2 Flow Rate 07/02/22 12:04 5 07/02/22 11:20 5 07/02/22 08:00 5 07/02/22 07:00 07/02/22 07:32 07/02/22 04:17 07/02/22 03:52 5 PG Care Time/CCT Total # of Minutes Spent Total Time Spent with Patient: Total time spent is greater than 50% in coordination of care (as documented) at patient's floor/unit and/or counseling patient: Coding Level of Care Code 22517 SUB INP/OBS CARE 2/35MIN Diagnoses Hypoxia R09.02 RSV infection B33.8 Congestive heart failure with left ventricular diastolic dysfunction I50.32 Congestive heart failure chronicity: chronic HTN (hypertension) I10 Diabetes mellitus type 2 in obese E11.69; E66.9 Obesity, morbid, BMI 40.0-49.9 E66.01 Obstructive sleep apnea of adult G47.33 AICD (automatic cardioverter/defibrillator) present Z95.810 Restrictive lung disease J98.4 Time Spent (min) 35 (1) Congestive heart failure with left ventricular diastolic dysfunction Congestive heart failure chronicity: chronic Qualified Code(s): I50.32 - Chronic diastolic (congestive) heart failure
[2022-07-02] MEDS: ATORVASTATIN 40 MG TAB PO SCH (20:10)
[2022-07-02] MEDS ORDERED: SODIUM CHLORIDE 0.65% NA SOLN 45 ML (OCEAN) PRN (23:34)
[2022-07-03] MEDS: ALBUT/IPRATROP 3MG/0.5MG NEB 3 ML VIAL NEB PRN ×5 (07:26→22:45)
[2022-07-03] MEDS: POTASSIUM CHLORIDE CRTAB 20 MEQ TABCR PO SCH ×2 (08:35→17:00)
[2022-07-03] MEDS: allopurinoL 300 MG TAB PO SCH (08:35)
[2022-07-03] MEDS: ASPIRIN 81 MG ECTAB PO SCH (08:35)
[2022-07-03] MEDS: SPIRONOLACTONE 12.5 MG TAB PO SCH (08:36)
[2022-07-03] MEDS: CHOLECALCIFEROL 1,000 UNITS 25 MCG TAB PO SCH (08:36)
[2022-07-03] MEDS: guaiFENesin 600 MG TABCR PO SCH ×2 (08:36→22:55)
[2022-07-03] MEDS: carvediloL 12.5 MG TAB PO SCH ×2 (08:36→22:55)
[2022-07-03] MEDS: ENOXAPARIN INJ 40 MG/0.4 ML SYR SQ SCH ×2 (08:39→22:55)
[2022-07-03] MEDS: AMIODARONE 200 MG TAB PO SCH (08:39)
[2022-07-03] MEDS: FLUTICASONE PROPIONATE NA SPR 16 GM BTL SCH (08:39)
[2022-07-03] MEDS: INSULIN ASPART PER UNIT SC SCH ×4 (08:45→20:45)
--- NOTE | 2022-07-03 10:17 | Cardiology Progress Note ---
Date of Service July 03, 2022 Assessment & Plan (1) Congestive heart failure with left ventricular diastolic dysfunction: (2) Amiodarone toxicity: (3) Ventricular fibrillation: (4) AICD (automatic cardioverter/defibrillator) present: Plan 1. Congestive heart failure: I doubt he has significant congestive heart failure currently, as noted in my consult it appears that his weight is down, his creatinine is up and his chest x-ray does not show worsening CHF. I think he was actually over diuresed and prerenal. I would not continue diuresis. I do not think his hypoxia is CHF related. I agree an echocardiogram could be helpful. 2. Amiodarone toxicity: It is unlikely he has amiodarone toxicity. His levels from a month ago (on steady state amiodarone 400 mg daily) are low, and although this does not correlate well with toxicity typically toxicity is of concern when the level rises to around 2, 4 times the level in May. Amiodarone has an extremely variable absorption and I suspect he does not absorb it well, that is not an abnormality, it is part of the pharmacokinetics of amiodarone. That said, amiodarone pulmonary toxicity is very difficult to diagnose, and based on the kinetics of the drug it would be safe to stop it for now but since he needs it for his ventricular arrhythmia we need to make sure it does not get lost and discontinued from his regimen for a long period of time. Several days would certainly not be an issue. 3. Ventricular fibrillation: We had started mexiletine to control his ventricular arrhythmia (on top of amiodarone) in the office, I understand he is no longer on it. If he has recurrence we can restart it. He is scheduled to see Annmarie for other modalities of treatment. 4. ICD: I did not interrogate his ICD but it has been functioning well and we do remote monitoring. Admission and Anticipated Discharge Date Admission Date: July 01, 2022 Subjective I did not see the patient today due to his COVID-19 diagnosis Physical Exam Physical Exam: I did not examine the patient due to his COVID-19 diagnosis Results & Data ([facility]) Vital Signs (Past 12 Hours) Vital Signs Temp Pulse Pulse Resp BP BP Pulse Ox 07/03/22 08:00 80 07/03/22 08:00 07/03/22 07:29 80 20 94 07/03/22 07:23 36.4 C L 80 20 90/58 L 94 07/03/22 03:56 37.1 C 79 20 134/77 100 07/03/22 01:10 81 07/02/22 23:13 80 22 93 07/02/22 23:06 36.6 C 84 18 97/55 L 92 O2 Del Method O2 Flow Rate 07/03/22 08:00 07/03/22 08:00 Room Air, BiPAP 07/03/22 07:29 CPAP 1 07/03/22 07:23 CPAP 07/03/22 03:56 BiPAP 07/03/22 01:10 07/02/22 23:13 Room Air 07/02/22 23:06 Room Air Laboratory Results Intake and Output 07/02/22 07/03/22 07/03/22 22:59 06:59 14:59 Intake Total 1010 / 1735 Output Total 1000 / 4200 1300 / 1300 Balance -1000 / -2465 1010 / -2465 -1300 / -1300 Intake: Oral 1010 / 1735 Output: Urine 1000 / 4200 1300 / 1300 Other: Weight 142.6 kg Weight Measurement Method Built in [facility] Diagnostic Findings Telemetry: Sinus rhythm, PVCs, no ventricular tachycardia PG Care Time/CCT Total # of Minutes Spent Total Time Spent with Patient: Total time spent is greater than 50% in coordination of care (as documented) at patient's floor/unit and/or counseling patient: Coding Level of Care Code 87027 SUB INP/OBS CARE 1/25MIN Diagnoses Congestive heart failure with left ventricular diastolic dysfunction I50.32 Congestive heart failure chronicity: chronic Amiodarone toxicity T46.2X1A Encounter type: initial encounter Injury intent: accidental or unintentional Ventricular fibrillation I49.01 AICD (automatic cardioverter/defibrillator) present Z95.810 (1) Congestive heart failure with left ventricular diastolic dysfunction Congestive heart failure chronicity: chronic Qualified Code(s): I50.32 - Chronic diastolic (congestive) heart failure (2) Amiodarone toxicity Encounter type: initial encounter Injury intent: accidental or unintentional Qualified Code(s): T46.2X1A - Poisoning by other antidysrhythmic drugs, accidental (unintentional), initial encounter
--- NOTE | 2022-07-03 13:08 | Hospitalist Progress Note ---
Date of Service July 03, 2022 Assessment & Plan (1) Hypoxia: Plan: Patient is a 57-year-old male with a past medical history of DM 2, hyperlipidemia, mitral regurgitation, HFrEF, obstructive sleep apnea, morbid obesity, AICD present, nonischemic cardiomyopathy, and hypertension who presents to the emergency department for chief complaint and of shortness of breath especially with exertion -Found to be hypoxic on admission -Tested positive for RSV -Chest x ray showed Cardiomegaly and pulmonary vascular congestion with mildly improved pulmonary edema. -Started on nasal oxygen, given Bumex -Currently, says SOB is much improved -Currently on rrom air (2) RSV infection: Plan: Tested positive for RSV Symptomatic management (3) Congestive heart failure with left ventricular diastolic dysfunction: Plan: No evidence of acute exacerbation will continue home meds Repeat ECHO pending appreciate cardiology monitor I/O, daily weight (4) HTN (hypertension): Plan: soft BP Hold Bumex per cardiology continue home meds (5) Diabetes mellitus type 2 in obese: Plan: Blood glucose is under good control continue insulin sliding scale (6) Obesity, morbid, BMI 40.0-49.9: Plan: adviced on lifestyle changes (7) Obstructive sleep apnea of adult: (8) AICD (automatic cardioverter/defibrillator) present: (9) Restrictive lung disease: Plan continue hospitalization, hopefully d/c tomorow Admission and Anticipated Discharge Date Admission Date: July 01, 2022 Subjective patient seen and examined, feels better Review of Systems Review of Systems: All systems reviewed are negative, apart from the ones contained in the history. Physical Exam Physical Exam: The patient is awake, alert and oriented 3, well developed and well nourished, normocephalic and atraumatic, lying in bed and in no acute distress. HEENT--PERRL, EOMI, mucous membranes and oropharynx mildly dry Neck--supple. No JVD. No bruits. Thyroid normal, trachea midline, no adenopathy. Heart--normal S1 and S2. No murmurs, rubs or gallops. Lungs--clear bilaterally, no respiratory distress, no accessory muscle use. Abdomen--normal bowel sounds and soft. Mild epigastric and left sided abdominal pain Extremities--no cyanosis or clubbing. No edema. Dermatologic--normal skin turgor, normal color, no abnormal lymph nodes, no rash. Neurologic--cranial nerves II through XII grossly intact. Rheumatologic--normal range of motion. Psychiatric--normal affect. Results & Data Results & Data ([facility]) Vital Signs (Past 12 Hours) Vital Signs Temp Pulse Pulse Resp BP BP Pulse Ox 07/03/22 11:25 81 18 92 07/03/22 11:22 97.5 F L 81 22 92 07/03/22 08:00 80 07/03/22 08:00 07/03/22 07:29 80 20 94 07/03/22 07:23 97.5 F L 80 20 90/58 L 94 07/03/22 03:56 98.8 F 79 20 134/77 100 07/03/22 01:10 81 O2 Del Method O2 Flow Rate 07/03/22 11:25 Room Air 07/03/22 11:22 Room Air 07/03/22 08:00 07/03/22 08:00 Room Air, BiPAP 07/03/22 07:29 CPAP 1 07/03/22 07:23 CPAP 07/03/22 03:56 BiPAP 07/03/22 01:10 PG Care Time/CCT Total # of Minutes Spent Total Time Spent with Patient: Total time spent is greater than 50% in coordination of care (as documented) at patient's floor/unit and/or counseling patient: Coding Level of Care Code 32781 SUB INP/OBS CARE 2/35MIN Diagnoses Hypoxia R09.02 RSV infection B33.8 Congestive heart failure with left ventricular diastolic dysfunction I50.32 Congestive heart failure chronicity: chronic HTN (hypertension) I10 Diabetes mellitus type 2 in obese E11.69; E66.9 Obesity, morbid, BMI 40.0-49.9 E66.01 Obstructive sleep apnea of adult G47.33 AICD (automatic cardioverter/defibrillator) present Z95.810 Restrictive lung disease J98.4 Time Spent (min) 35 (1) Congestive heart failure with left ventricular diastolic dysfunction Congestive heart failure chronicity: chronic Qualified Code(s): I50.32 - Chronic diastolic (congestive) heart failure
[2022-07-03] MEDS: BENZONATATE 100 MG CAPSULE PO PRN ×2 (17:00→21:00)
--- NOTE | 2022-07-03 21:07 | Electrocardiogram Report ---
Test Reason : Blood Pressure : / mmHG Vent. Rate : 085 BPM Atrial Rate : 085 BPM P-R Int : 254 ms QRS Dur : 144 ms QT Int : 462 ms P-R-T Axes : 000 056 059 degrees QTc Int : 549 ms Atrial-paced rhythm with prolonged AV conduction Non-specific intra-ventricular conduction block Abnormal ECG When compared with ECG of 29-JUN-2022 12:41, No significant change was found Confirmed by Peter Abdalla ([id number]) on 07/03/2022 9:07:31 PM Referred By: REFERRED SELF Confirmed By:Peter Abdalla
[2022-07-03] MEDS: ATORVASTATIN 40 MG TAB PO SCH (22:55)
[2022-07-04] MEDS: BENZONATATE 100 MG CAPSULE PO PRN ×4 (06:43→21:52)
[2022-07-04] MEDS: ALBUT/IPRATROP 3MG/0.5MG NEB 3 ML VIAL NEB PRN ×5 (07:43→23:20)
[2022-07-04] MEDS: FLUTICASONE PROPIONATE NA SPR 16 GM BTL SCH (08:14)
[2022-07-04] MEDS: allopurinoL 300 MG TAB PO SCH (08:15)
[2022-07-04] MEDS: carvediloL 12.5 MG TAB PO SCH ×2 (08:15→20:50)
[2022-07-04] MEDS: AMIODARONE 200 MG TAB PO SCH (08:15)
[2022-07-04] MEDS: POTASSIUM CHLORIDE CRTAB 20 MEQ TABCR PO SCH ×2 (08:15→17:32)
[2022-07-04] MEDS: guaiFENesin 600 MG TABCR PO SCH ×2 (08:16→20:50)
[2022-07-04] MEDS: CHOLECALCIFEROL 1,000 UNITS 25 MCG TAB PO SCH (08:16)
[2022-07-04] MEDS: SPIRONOLACTONE 12.5 MG TAB PO SCH (08:16)
[2022-07-04] MEDS: ENOXAPARIN INJ 40 MG/0.4 ML SYR SQ SCH ×2 (08:17→20:51)
[2022-07-04] MEDS: ASPIRIN 81 MG ECTAB PO SCH (08:17)
[2022-07-04] MEDS: INSULIN ASPART PER UNIT SC SCH ×4 (08:18→21:51)
--- NOTE | 2022-07-04 11:32 | Hospitalist Progress Note ---
Date of Service July 04, 2022 Assessment & Plan (1) Hypoxia: Plan: Patient is a 57-year-old male with a past medical history of DM 2, hyperlipidemia, mitral regurgitation, HFrEF, obstructive sleep apnea, morbid obesity, AICD present, nonischemic cardiomyopathy, and hypertension who presents to the emergency department for chief complaint and of shortness of breath especially with exertion -Found to be hypoxic on admission -Tested positive for RSV -Chest x ray showed Cardiomegaly and pulmonary vascular congestion with mildly improved pulmonary edema. -Started on nasal oxygen, given Bumex -Was initially down to room air, hower SOB got slightly worse, now on 2L -Will resume Bumex, which was initially held -Wean as tolerated (2) RSV infection: Plan: Tested positive for RSV Symptomatic management (3) Congestive heart failure with left ventricular diastolic dysfunction: Plan: No evidence of acute exacerbation, BNP 380 on admission will continue home meds appreciate cardiology recs monitor I/O, daily weight (4) HTN (hypertension): Plan: soft BP Hold anti htn meds (5) Diabetes mellitus type 2 in obese: Plan: Blood glucose is under good control continue insulin sliding scale (6) Obesity, morbid, BMI 40.0-49.9: Plan: adviced on lifestyle changes (7) Obstructive sleep apnea of adult: (8) AICD (automatic cardioverter/defibrillator) present: (9) Restrictive lung disease: Plan continue hospitalization, hopefully d/c tomorow Admission and Anticipated Discharge Date Admission Date: July 01, 2022 Subjective patient seen and examined, SOB got slightly worse overnight, now on oxygen Review of Systems Review of Systems: All systems reviewed are negative, apart from the ones contained in the history. Physical Exam Physical Exam: The patient is awake, alert and oriented 3, well developed and well nourished, normocephalic and atraumatic, lying in bed and in no acute distress. HEENT--PERRL, EOMI, mucous membranes and oropharynx mildly dry Neck--supple. No JVD. No bruits. Thyroid normal, trachea midline, no adenopathy. Heart--normal S1 and S2. No murmurs, rubs or gallops. Lungs--clear bilaterally, no respiratory distress, no accessory muscle use. Abdomen--normal bowel sounds and soft. Mild epigastric and left sided abdominal pain Extremities--no cyanosis or clubbing. No edema. Dermatologic--normal skin turgor, normal color, no abnormal lymph nodes, no rash. Neurologic--cranial nerves II through XII grossly intact. Rheumatologic--normal range of motion. Psychiatric--normal affect. Results & Data Results & Data ([facility]) Vital Signs (Past 12 Hours) Vital Signs Temp Pulse Pulse Pulse Pulse Pulse Pulse 07/04/22 11:23 97.3 F L 80 07/04/22 10:28 82 07/04/22 10:19 90 93 H 85 81 07/04/22 09:46 07/04/22 08:09 84 07/04/22 07:44 80 07/04/22 07:15 98.1 F 82 07/04/22 03:34 97.7 F 78 07/04/22 01:31 82 07/03/22 23:50 97.9 F 86 Resp Resp Resp Resp Resp BP Pulse Ox 07/04/22 11:23 20 100/63 90 07/04/22 10:28 18 94 07/04/22 10:19 20 22 20 18 07/04/22 09:46 07/04/22 08:09 07/04/22 07:44 16 98 07/04/22 07:15 17 114/76 98 07/04/22 03:34 18 95/66 L 99 07/04/22 01:31 07/03/22 23:50 18 108/74 90 Pulse Ox Pulse Ox Pulse Ox Pulse Ox O2 Del Method O2 Flow Rate O2 Flow Rate 07/04/22 11:23 Room Air 07/04/22 10:28 Nasal Cannula 2 07/04/22 10:19 91 85 L 92 91 2 07/04/22 09:46 Room Air 07/04/22 08:09 07/04/22 07:44 Nasal Cannula 2 07/04/22 07:15 Nasal Cannula 2 07/04/22 03:34 CPAP 07/04/22 01:31 07/03/22 23:50 Room Air PG Care Time/CCT Total # of Minutes Spent Total Time Spent with Patient: Total time spent is greater than 50% in coordination of care (as documented) at patient's floor/unit and/or counseling patient: Coding Level of Care Code 84409 SUB INP/OBS CARE 2/35MIN Diagnoses Hypoxia R09.02 RSV infection B33.8 Congestive heart failure with left ventricular diastolic dysfunction I50.32 Congestive heart failure chronicity: chronic HTN (hypertension) I10 Diabetes mellitus type 2 in obese E11.69; E66.9 Obesity, morbid, BMI 40.0-49.9 E66.01 Obstructive sleep apnea of adult G47.33 AICD (automatic cardioverter/defibrillator) present Z95.810 Restrictive lung disease J98.4 Time Spent (min) 35 (1) Congestive heart failure with left ventricular diastolic dysfunction Congestive heart failure chronicity: chronic Qualified Code(s): I50.32 - Chronic diastolic (congestive) heart failure
[2022-07-04] MEDS ORDERED: BUMETANIDE 1 MG TAB PO SCH (17:00)
[2022-07-04] MEDS: ATORVASTATIN 40 MG TAB PO SCH (20:50)
[2022-07-05 05:33] LABS: BUN Creatinine Ratio 25.2 (10-20); Calcium 9.3 mg/dl (8.5-10.1); Creatinine Clr Calc Pharmacy 76.8 ml/min; Est GFR (Non-African American) 50.9 ml/min; Potassium 4.2 mmol/L (3.5-5.1)
[2022-07-05] MEDS: ALBUT/IPRATROP 3MG/0.5MG NEB 3 ML VIAL NEB PRN ×4 (07:26→22:59)
[2022-07-05] MEDS: carvediloL 12.5 MG TAB PO SCH ×2 (08:36→21:20)
[2022-07-05] MEDS: AMIODARONE 200 MG TAB PO SCH (08:36)
[2022-07-05] MEDS: CHOLECALCIFEROL 1,000 UNITS 25 MCG TAB PO SCH (08:37)
[2022-07-05] MEDS: ASPIRIN 81 MG ECTAB PO SCH (08:37)
[2022-07-05] MEDS: SPIRONOLACTONE 12.5 MG TAB PO SCH (08:37)
[2022-07-05] MEDS: POTASSIUM CHLORIDE CRTAB 20 MEQ TABCR PO SCH ×2 (08:37→17:33)
[2022-07-05] MEDS: guaiFENesin 600 MG TABCR PO SCH ×2 (08:38→21:32)
[2022-07-05] MEDS: allopurinoL 300 MG TAB PO SCH (08:38)
[2022-07-05] MEDS: FLUTICASONE PROPIONATE NA SPR 16 GM BTL SCH (08:38)
[2022-07-05] MEDS: ENOXAPARIN INJ 40 MG/0.4 ML SYR SQ SCH ×2 (08:38→21:19)
[2022-07-05] MEDS: INSULIN ASPART PER UNIT SC SCH ×4 (08:39→20:53)
[2022-07-05] MEDS: BENZONATATE 100 MG CAPSULE PO PRN ×3 (08:44→17:39)
[2022-07-05] MEDS ORDERED: ACETAMINOPHEN 1,000 MG/100 ML VIAL IV PRN (08:56)
--- NOTE | 2022-07-05 09:52 | XRay Report ---
XR chest 1V portable HISTORY: 57 years-old Male dyspnea acute shortness of breath COMPARISON: Chest radiograph July 01, 2022 TECHNIQUE: AP view of the chest FINDINGS: Cardiac silhouette is enlarged. Left subclavian pacer/AICD. No pneumothorax. Trace pleural effusions. Pulmonary vascular congestion. Mild interstitial coarsening is similar to prior. Bones appear grossl y intact. IMPRESSION: 1. Cardiomegaly with unchanged mild pulmonary edema. 2. Trace pleural effusions. ACT 112: Negative or not required by law. The above report was generated using voice recognition software. It may contain grammatical, syntax o r spelling errors. Electronically signed by: Armaan Sher M.D. 07/05/2022 9:51 AM
--- NOTE | 2022-07-05 10:08 | Pulmonary Consultation ---
Date of Consultation July 05, 2022 Assessment & Plan (1) Bronchiolitis due to respiratory syncytial virus (RSV): We will add nebulized budesonide and Brovana. We will also add percussive vest therapy 4 times a day and hypertonic saline to help mobilize secretions. He was counseled that postviral cough can last for 6 to 12 weeks. Recommend discharging on high-dose Breo once ready for discharge. (2) Hypoxia: Intermittently hypoxemic with exertion secondary to obesity, VQ mismatch during an acute infection. Doubt amiodarone induced lung injury. Will need to step oxygen qualification study prior to discharge. (3) Dyspnea: Resolving. Outpatient weight loss and exercise would be beneficial. History of Present Illness Reason for Consultation: "Worsening SOB" Attending Physician: Abby Baldwin MD History of Present Illness 57-year-old male with a history of nonischemic cardiomyopathy status post dual- chamber defibrillator, paroxysmal ventricular tachycardia, obesity and COTY presenting to the hospital due to increasing shortness of breath. He was found to have RSV. He continues to have wheezing and cough occasionally productive of sputum. He notes shortness of breath with exertion. He relates that he was a social smoker in his youth. He has a history of COTY and has been compliant with CPAP. He denies any prior history of lung disease. Pulmonary is consulted due to worsening shortness of breath. There was some concern of possible amiodarone toxicity earlier this hospitalization. He had a chest x-ray today which revealed trace effusions and mild pulmonary edema. Chest CTA from December also revealed trace effusions and mosaic attenuation. Allergies Allergy/AdvReac Type Severity Reaction Status Date / Time No Known Allergies Allergy Verified 07/01/22 17:45 Home Medications Medication Instructions Recorded Confirmed Type acetaminophen 500 mg tablet 500 mg PO Q4H PRN Fever Or Pain 03/28/19 07/01/22 History omega-3 fatty acids 1,250 mg 1,250 mg PO DAILY 03/28/19 07/01/22 History capsule multivitamin 1 tab PO DAILY 12/01/19 07/01/22 History Auto Titrating CPAP #1 ea 03/16/20 06/21/22 Rx CPAP Supplies #1 ea 03/16/20 06/21/22 Rx bumetanide 2 mg tablet 2 mg PO BID #60 tabs 10/05/20 07/01/22 Rx cholecalciferol (vitamin D3) 50 50 mcg PO DAILY 04/05/21 07/01/22 History mcg (2,000 unit) capsule atorvastatin 80 mg tablet 80 mg PO HS 10/13/21 07/01/22 History allopurinol 300 mg tablet 300 mg PO DAILY 12/27/21 07/01/22 History metolazone 5 mg tablet 5 mg PO DAILY PRN WT GAIN 12/27/21 07/01/22 History aspirin 81 mg tablet,delayed 81 mg PO DAILY 04/07/22 07/01/22 History release fluocinonide 0.05 % topical cream 1 applic topical BID PRN Skin 04/07/22 07/01/22 History Irritation zinc acetate 25 mg (zinc) capsule 0 mg PO DAILY 04/07/22 07/01/22 History blood sugar diagnostic (Q.METouch #100 ea 04/08/22 05/26/22 Rx Verio test strips) blood-glucose meter (Q.METouch #1 ea 04/08/22 05/26/22 Rx Verio Meter) lancets 33 gauge (Q.METouch Delica #100 ea 04/08/22 05/26/22 Rx Lancets) potassium chloride 20 mEq 40 meq PO BID #120 tabs 04/08/22 07/01/22 Rx tablet,extended release(part/cryst) (Klor-Con M) amiodarone 400 mg tablet 400 mg PO QAM #90 tabs 05/09/22 07/01/22 Rx spironolactone 25 mg tablet 12.5 mg PO DAILY #45 tabs 05/16/22 07/01/22 Rx guaifenesin 600 mg tablet, 600 mg PO Q12H PRN Congestion 05/26/22 07/01/22 History extended release 12 hr (Mucinex) carvedilol 6.25 mg tablet 12.5 mg PO BID #180 tabs 06/06/22 07/01/22 Rx mexiletine 200 mg capsule 200 mg PO Q8H #90 caps 06/06/22 07/01/22 Rx hydrocodone-homatropine 5 mg-1.5 5 ml PO Q6H PRN cough #200 mL 06/29/22 07/01/22 Rx mg/5 mL (5 mL) oral syrup (Hycodan) albuterol sulfate 90 mcg/actuation 2 puff inhalation Q4H PRN 07/01/22 07/01/22 History aerosol inhaler Shortness Of Breath Or Wheezing Patient History Medical History (Updated 07/05/22 @ 11:52 by Abby Baldwin MD) Bronchiolitis due to respiratory syncytial virus (RSV) Cardiomyopathy, nonischemic Diabetes mellitus type 2 in obese 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 Dyslipidemia Dyspnea Elevated bilirubin Former smoker Hemoptysis Hypoxia Metabolic syndrome Non-rheumatic mitral regurgitation Obesity, morbid, BMI 40.0-49.9 Obstructive sleep apnea of adult Shortness of breath Systolic congestive heart failure Ventricular tachycardia (paroxysmal) Social History Smoking Status: Former smoker Tobacco Type: Cigarettes Second Hand Exposure: No; Do You Dip or Chew Tobacco: No; Tobacco Cessation Education Requested by Patient: No Hx Alcohol Use: Yes Alcohol type: other Hx Substance Use: Yes Last Used Substance: Days (ago) Substance Use Type Other:: medical marijuana Preferred Language: Nepali Communication Ability: Effective Operating Room Orderly Required: No Beliefs That Will Affect Care: None Current Living Situation: Alone Current Living Situation Comment: From home alone 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 Patient is in no apparent distress. Patient is well-developed. Eyes: Pupils are equal round and reactive to light. Conjunctivae are normal. Anicteric sclera. Ears nose, mouth and throat: Mallampati class 3. Normal posterior oropharynx. Uvula is midline. Neck: Trachea is midline. Visual inspection is normal. Respiratory: Mild expiratory wheeze noted on exhalation. Minimal tachypnea. Cardiovascular: Regular rate and rhythm. No murmurs. No edema. Gastrointestinal: Normal bowel sounds, soft, nontender and nondistended. No hepatosplenomegaly noted. Musculoskeletal: No cyanosis. Patient is able to move all extremities. Skin: No rashes, warm dry and intact. Neurologic: No obvious focal neurological deficits seen. Psychiatric: Alert and oriented x3 with a euthymic affect. Results & Data Results & Data ([facility]) Vital Signs (Past 12 Hours) Vital Signs Temp Pulse Pulse Resp BP Pulse Ox O2 Del Method 07/05/22 09:39 Room Air 07/05/22 08:40 102/67 07/05/22 07:29 36.4 C L 80 20 84/57 L 99 BiPAP 07/05/22 07:27 81 18 94 BiPAP 07/05/22 07:13 60 07/05/22 03:16 36.6 C 83 18 99/56 L 95 CPAP 07/05/22 00:00 80 07/04/22 23:31 36.7 C 79 18 107/71 97 CPAP 07/04/22 23:20 80 20 99 CPAP O2 Flow Rate 07/05/22 09:39 07/05/22 08:40 07/05/22 07:29 07/05/22 07:27 4 07/05/22 07:13 07/05/22 03:16 07/05/22 00:00 07/04/22 23:31 07/04/22 23:20 4 PG Care Time/CCT Total # of Minutes Spent Total Time Spent with Patient: Total time spent is greater than 50% in coordination of care (as documented) at patient's floor/unit and/or counseling patient: Coding Level of Care Code INP/OBS CONSULT LVL 4, 60 MIN Diagnoses Bronchiolitis due to respiratory syncytial virus (RSV) J21.0 Hypoxia R09.02 Dyspnea R06.00
[2022-07-05 11:40] LABS: Appearance Urine Clear (Clear); Bilirubin Urine Negative (Negative); Blood Urine Negative (Negative); Color Urine Yellow; Glucose Urine UA 1+ (Negative); Ketones Urine Negative (Negative); Leukocyte Esterase Urine Negative (Negative); Nitrite Urine Negative (Negative); Protein Urine Negative (Negative); Specific Gravity Urine 1.015 (1.000-1.030); Urobilinogen Urine Negative (Negative); pH Urine 5.5 (4.5-7.5)
--- NOTE | 2022-07-05 11:53 | Hospitalist Progress Note ---
Date of Service July 05, 2022 Assessment & Plan (1) Hypoxia: Plan: Patient is a 57-year-old male with a past medical history of DM 2, hyperlipidemia, mitral regurgitation, HFrEF, obstructive sleep apnea, morbid obesity, AICD present, nonischemic cardiomyopathy, and hypertension who presents to the emergency department for chief complaint and of shortness of breath especially with exertion -Found to be hypoxic on admission -Tested positive for RSV -Chest x ray showed Cardiomegaly and pulmonary vascular congestion with mildly improved pulmonary edema. -Started on nasal oxygen, -Initally on home Bumex, but this was discontinued at the behest of cardiology, who believes patient currently is over diuresed -Was initially down to room air, however SOB got slightly worse, now on 2L -Pulm consulted -Wean as tolerated (2) Bronchiolitis due to respiratory syncytial virus (RSV): Plan: Still some SOB, especially on exertion, cough and wheeze on exam evaluated by Pulm, will add Budesonide and formeterol (3) RSV infection: Plan: Tested positive for RSV Symptomatic management (4) Congestive heart failure with left ventricular diastolic dysfunction: Plan: No evidence of acute exacerbation, BNP 380 on admission will continue to hold Bumex per cardiology appreciate cardiology recs monitor I/O, daily weight (5) Acute kidney injury superimposed on CKD: Plan: likely due to diuretics hold bumex avoid nephrotoxics (6) HTN (hypertension): Plan: soft BP Hold anti htn meds (7) Diabetes mellitus type 2 in obese: Plan: Blood glucose is under good control continue insulin sliding scale (8) Obesity, morbid, BMI 40.0-49.9: Plan: adviced on lifestyle changes (9) Obstructive sleep apnea of adult: (10) AICD (automatic cardioverter/defibrillator) present: (11) Restrictive lung disease: Plan continue hospitalization, hopefully d/c tomorow Admission and Anticipated Discharge Date Admission Date: July 01, 2022 Subjective patient seen and examined, SOB got slightly better, but still some wheeze Review of Systems Review of Systems: All systems reviewed are negative, apart from the ones contained in the history. Physical Exam Physical Exam: The patient is awake, alert and oriented 3, well developed and well nourished, normocephalic and atraumatic, lying in bed and in no acute distress. HEENT--PERRL, EOMI, mucous membranes and oropharynx mildly dry Neck--supple. No JVD. No bruits. Thyroid normal, trachea midline, no adenopathy. Heart--normal S1 and S2. No murmurs, rubs or gallops. Lungs--clear bilaterally, no respiratory distress, no accessory muscle use. Abdomen--normal bowel sounds and soft. Mild epigastric and left sided abdominal pain Extremities--no cyanosis or clubbing. No edema. Dermatologic--normal skin turgor, normal color, no abnormal lymph nodes, no rash. Neurologic--cranial nerves II through XII grossly intact. Rheumatologic--normal range of motion. Psychiatric--normal affect. Results & Data Results & Data ([facility]) Vital Signs (Past 12 Hours) Vital Signs Temp Pulse Pulse Resp BP Pulse Ox O2 Del Method 07/05/22 11:27 98.1 F 87 20 97/61 L 97 Nasal Cannula 07/05/22 11:07 82 18 Nasal Cannula 07/05/22 09:39 Room Air 07/05/22 08:40 102/67 07/05/22 07:29 97.5 F L 80 20 84/57 L 99 BiPAP 07/05/22 07:27 81 18 94 BiPAP 07/05/22 07:13 60 07/05/22 03:16 97.9 F 83 18 99/56 L 95 CPAP 07/05/22 00:00 80 O2 Flow Rate 07/05/22 11:27 2 07/05/22 11:07 07/05/22 09:39 07/05/22 08:40 07/05/22 07:29 07/05/22 07:27 4 07/05/22 07:13 07/05/22 03:16 07/05/22 00:00 PG Care Time/CCT Total # of Minutes Spent Total Time Spent with Patient: Total time spent is greater than 50% in coordination of care (as documented) at patient's floor/unit and/or counseling patient: Coding Level of Care Code 28171 SUB INP/OBS CARE 2/35MIN Diagnoses Hypoxia R09.02 Bronchiolitis due to respiratory syncytial virus (RSV) J21.0 RSV infection B33.8 Congestive heart failure with left ventricular diastolic dysfunction I50.32 Congestive heart failure chronicity: chronic Acute kidney injury superimposed on CKD N17.9; N18.9 HTN (hypertension) I10 Diabetes mellitus type 2 in obese E11.69; E66.9 Obesity, morbid, BMI 40.0-49.9 E66.01 Obstructive sleep apnea of adult G47.33 AICD (automatic cardioverter/defibrillator) present Z95.810 Restrictive lung disease J98.4 (1) Congestive heart failure with left ventricular diastolic dysfunction Congestive heart failure chronicity: chronic Qualified Code(s): I50.32 - Chronic diastolic (congestive) heart failure
[2022-07-05] MEDS: BUDESONIDE 0.5 MG/2 ML VIAL (PULMICORT) NEB SCH (19:36)
[2022-07-05] MEDS: SODIUM CHLOR 7% 4 ML NEB NEB SCH (19:36)
[2022-07-05] MEDS: FORMOTEROL 20 MCG/2 ML VIAL INH SCH (19:36)
[2022-07-05] MEDS: ATORVASTATIN 40 MG TAB PO SCH (21:33)
--- NOTE | 2022-07-05 23:11 | Ultrasound Report ---
ULTRASOUND KIDNEYS AND BLADDER CLINICAL HISTORY: Flank pain. COMPARISON STUDY: Abdominal CT dated 12/01/2019. TECHNIQUE: Real-time, grayscale, and color flow sonography of the kidneys and bladder is performed. I mages are reviewed in the transverse and longitudinal planes. FINDINGS: Kidneys: The kidneys are normal in size and echotexture. The right kidney measures 11.9 cm in length and the left kidney measures 11.7 cm in length. There is no hydronephrosis. An 8 mm nonobstructing c alculus is noted on the right. Bilateral renal cysts measure 4.2 cm. There is no sonographic evidence of contour deforming renal mass lesion. No perinephric fluid is identified. Bladder: The bladder is decompressed and could not be assessed. Upper abdomen: The liver is enlarged with evidence of steatosis. Splenomegaly is seen in the left upp er quadrant. IMPRESSION: 1. The kidneys are normal in size and without hydronephrosis. 2. The bladder was decompressed and could not be assessed. 3. Right-sided nephrolithiasis. ACT 112: Negative or not required by law. Electronically signed by: Blanco Bazan M.D. 07/05/2022 11:10 PM
[2022-07-06 06:44] LABS: BUN Creatinine Ratio 23.4 (10-20); Creatinine Clr Calc Pharmacy 90.7 ml/min; Est GFR (Non-African American) 62.2 ml/min
[2022-07-06] MEDS: SODIUM CHLOR 7% 4 ML NEB NEB SCH ×2 (06:58→20:09)
[2022-07-06] MEDS: FORMOTEROL 20 MCG/2 ML VIAL INH SCH ×2 (07:12→20:09)
[2022-07-06] MEDS: BUDESONIDE 0.5 MG/2 ML VIAL (PULMICORT) NEB SCH ×2 (07:12→20:09)
[2022-07-06 09:40] LABS: BUN Creatinine Ratio 23.5 (10-20); Calcium 9.3 mg/dl (8.5-10.1); Creatinine Clr Calc Pharmacy 97.5 ml/min; Est GFR (African American) 78.7 ml/min; Est GFR (Non-African American) 67.9 ml/min; Potassium 4.5 mmol/L (3.5-5.1)
[2022-07-06] MEDS: INSULIN ASPART PER UNIT SC SCH ×4 (09:46→21:20)
[2022-07-06] MEDS: allopurinoL 300 MG TAB PO SCH (09:47)
[2022-07-06] MEDS: CHOLECALCIFEROL 1,000 UNITS 25 MCG TAB PO SCH (09:47)
[2022-07-06] MEDS: ENOXAPARIN INJ 40 MG/0.4 ML SYR SQ SCH ×2 (09:47→21:28)
[2022-07-06] MEDS: carvediloL 12.5 MG TAB PO SCH ×2 (09:47→21:27)
[2022-07-06] MEDS: FLUTICASONE PROPIONATE NA SPR 16 GM BTL SCH (09:47)
[2022-07-06] MEDS: ASPIRIN 81 MG ECTAB PO SCH (09:47)
[2022-07-06] MEDS: AMIODARONE 200 MG TAB PO SCH (09:47)
[2022-07-06] MEDS: POTASSIUM CHLORIDE CRTAB 20 MEQ TABCR PO SCH (09:48)
[2022-07-06] MEDS: guaiFENesin 600 MG TABCR PO SCH ×2 (09:48→21:30)
[2022-07-06] MEDS: SPIRONOLACTONE 12.5 MG TAB PO SCH (09:48)
--- NOTE | 2022-07-06 13:41 | Hospitalist Progress Note ---
Date of Service July 06, 2022 Assessment & Plan (1) Hypoxia: Plan: Patient is a 57-year-old male with a past medical history of DM 2, hyperlipidemia, mitral regurgitation, HFrEF, obstructive sleep apnea, morbid obesity, AICD present, nonischemic cardiomyopathy, and hypertension who presents to the emergency department for chief complaint and of shortness of breath especially with exertion -Found to be hypoxic on admission -Tested positive for RSV -Chest x ray showed Cardiomegaly and pulmonary vascular congestion with mildly improved pulmonary edema. -Started on nasal oxygen, -Initally on home Bumex, but this was discontinued at the behest of cardiology, who believes patient currently is over diuresed -Was initially down to room air, however SOB got slightly worse, now on 2L -Pulm consulted, recommend Budesonide and formeterol -Wean as tolerated (2) Bronchiolitis due to respiratory syncytial virus (RSV): Plan: Still some SOB, especially on exertion, cough and wheeze on exam evaluated by Pulm, will add Budesonide and formeterol (3) RSV infection: Plan: Tested positive for RSV Symptomatic management (4) Congestive heart failure with left ventricular diastolic dysfunction: Plan: No evidence of acute exacerbation, BNP 380 on admission will continue to hold Bumex per cardiology appreciate cardiology recs monitor I/O, daily weight (5) Acute kidney injury superimposed on CKD: Plan: likely due to diuretics hold bumex avoid nephrotoxics (6) HTN (hypertension): Plan: soft BP Hold anti htn meds (7) Diabetes mellitus type 2 in obese: Plan: Blood glucose is under good control continue insulin sliding scale (8) Obesity, morbid, BMI 40.0-49.9: Plan: adviced on lifestyle changes (9) Obstructive sleep apnea of adult: (10) AICD (automatic cardioverter/defibrillator) present: (11) Restrictive lung disease: Plan continue hospitalization, hopefully d/c tomorow, home oxygen has been arranged Admission and Anticipated Discharge Date Admission Date: July 01, 2022 Subjective patient seen and examined, SOB is much better, still weak Review of Systems Review of Systems: All systems reviewed are negative, apart from the ones contained in the history. Physical Exam Physical Exam: The patient is awake, alert and oriented 3, well developed and well nourished, normocephalic and atraumatic, lying in bed and in no acute distress. HEENT--PERRL, EOMI, mucous membranes and oropharynx mildly dry Neck--supple. No JVD. No bruits. Thyroid normal, trachea midline, no adenopathy. Heart--normal S1 and S2. No murmurs, rubs or gallops. Lungs--clear bilaterally, no respiratory distress, no accessory muscle use. Abdomen--normal bowel sounds and soft. Mild epigastric and left sided abdominal pain Extremities--no cyanosis or clubbing. No edema. Dermatologic--normal skin turgor, normal color, no abnormal lymph nodes, no rash. Neurologic--cranial nerves II through XII grossly intact. Rheumatologic--normal range of motion. Psychiatric--normal affect. Results & Data Results & Data ([facility]) Vital Signs (Past 12 Hours) Vital Signs Temp Pulse Pulse Resp BP Pulse Ox O2 Del Method 07/06/22 11:53 Nasal Cannula 07/06/22 11:30 83 07/06/22 11:18 98.1 F 98 H 18 120/80 95 Nasal Cannula 07/06/22 08:20 98.2 F 96 H 18 134/85 95 Room Air 07/06/22 07:00 62 18 88 L Room Air 07/06/22 02:37 98.1 F 77 17 92/55 L 95 BiPAP O2 Flow Rate 07/06/22 11:53 2 07/06/22 11:30 07/06/22 11:18 2 07/06/22 08:20 07/06/22 07:00 07/06/22 02:37 PG Care Time/CCT Total # of Minutes Spent Total Time Spent with Patient: Total time spent is greater than 50% in coordination of care (as documented) at patient's floor/unit and/or counseling patient: Coding Level of Care Code 64842 SUB INP/OBS CARE 2/35MIN Diagnoses Hypoxia R09.02 Bronchiolitis due to respiratory syncytial virus (RSV) J21.0 RSV infection B33.8 Congestive heart failure with left ventricular diastolic dysfunction I50.32 Congestive heart failure chronicity: chronic Acute kidney injury superimposed on CKD N17.9; N18.9 HTN (hypertension) I10 Diabetes mellitus type 2 in obese E11.69; E66.9 Obesity, morbid, BMI 40.0-49.9 E66.01 Obstructive sleep apnea of adult G47.33 AICD (automatic cardioverter/defibrillator) present Z95.810 Restrictive lung disease J98.4 Time Spent (min) 35 (1) Congestive heart failure with left ventricular diastolic dysfunction Congestive heart failure chronicity: chronic Qualified Code(s): I50.32 - Chronic diastolic (congestive) heart failure
[2022-07-06] MEDS: ALBUT/IPRATROP 3MG/0.5MG NEB 3 ML VIAL NEB PRN ×2 (14:59→22:57)
--- NOTE | 2022-07-06 16:23 | Pulmonology Progress Note ---
Date of Service July 06, 2022 Assessment & Plan (1) Bronchiolitis due to respiratory syncytial virus (RSV): Plan: Improving with supportive care. Continue budesonide and Perforomist while inpatient. Transition to Breo, high-dose as an outpatient. Continue mucoc iliary clearance with hypertonic saline and vest therapy. Likely stable for discharge tomorrow from a bronchiolitis perspective. (2) Hypoxia: Plan: Improving. Recommend to two step oxygen evaluation prior to discharge. Doubtful of amiodarone induced lung toxicity. Likely secondary to VQ mismatch. (3) Dyspnea: Plan: Improving. (4) Hypnagogic jerks: Plan: Secondary to the patient's underlying COTY and acute illness. This will resolve with time. Plan Pulm to sign off. Please call with questions. Thank you for the consult. Admission and Anticipated Discharge Date Admission Date: July 01, 2022 Subjective Patient feeling better today, but dizzy at times. He notes hypnagogic jerks when falling asleep which has been troublesome for him. He also notes some continued chest tightness, but somewhat improved with percussive vest therapy. Review of Systems Review of Systems: All systems reviewed & are unremarkable except as noted in HPI & below Physical Exam Physical Exam: Constitutional: Patient appears to be of their stated age. Patient is in no apparent distress. Patient is well-developed. Eyes: Pupils are equal round and reactive to light. Conjunctivae are normal. Anicteric sclera. Ears nose, mouth and throat: Mallampati class 3. Normal posterior oropharynx. Uvula is midline. Neck: Trachea is midline. Visual inspection is normal. Respiratory: Mild expiratory wheeze noted on exhalation. Minimal tachypnea. Cardiovascular: Regular rate and rhythm. No murmurs. No edema. Gastrointestinal: Normal bowel sounds, soft, nontender and nondistended. No hepatosplenomegaly noted. Musculoskeletal: No cyanosis. Patient is able to move all extremities. Skin: No rashes, warm dry and intact. Neurologic: No obvious focal neurological deficits seen. Psychiatric: Alert and oriented x3 with a euthymic affect. Results & Data Results & Data ([facility]) Vital Signs (Past 12 Hours) Vital Signs Temp Pulse Pulse Resp BP Pulse Ox O2 Del Method 07/06/22 16:08 36.7 C 78 18 98/63 L 90 Room Air 07/06/22 15:00 78 16 94 Nasal Cannula 07/06/22 11:53 Nasal Cannula 07/06/22 11:30 83 07/06/22 11:18 36.7 C 98 H 18 120/80 95 Nasal Cannula 07/06/22 08:20 36.8 C 96 H 18 134/85 95 Room Air 07/06/22 07:00 62 18 88 L Room Air O2 Flow Rate 07/06/22 16:08 07/06/22 15:00 2 07/06/22 11:53 2 07/06/22 11:30 07/06/22 11:18 2 07/06/22 08:20 07/06/22 07:00 PG Care Time/CCT Total # of Minutes Spent Total Time Spent with Patient: Total time spent is greater than 50% in coordination of care (as documented) at patient's floor/unit and/or counseling patient: Coding Level of Care Code 52876 SUB INP/OBS CARE 2/35MIN Diagnoses Bronchiolitis due to respiratory syncytial virus (RSV) J21.0 Hypoxia R09.02 Dyspnea R06.00 Hypnagogic jerks F51.8
[2022-07-06] MEDS ORDERED: MELATONIN 3 MG TAB PO PRN (17:31)
[2022-07-06] MEDS: ATORVASTATIN 40 MG TAB PO SCH (21:30)
[2022-07-07] MEDS: FORMOTEROL 20 MCG/2 ML VIAL INH SCH (07:55)
[2022-07-07] MEDS: BUDESONIDE 0.5 MG/2 ML VIAL (PULMICORT) NEB SCH (07:55)
[2022-07-07] MEDS: SODIUM CHLOR 7% 4 ML NEB NEB SCH (07:55)
[2022-07-07] MEDS: SPIRONOLACTONE 12.5 MG TAB PO SCH (08:25)
[2022-07-07] MEDS: allopurinoL 300 MG TAB PO SCH (08:25)
[2022-07-07] MEDS: CHOLECALCIFEROL 1,000 UNITS 25 MCG TAB PO SCH (08:25)
[2022-07-07] MEDS: guaiFENesin 600 MG TABCR PO SCH (08:25)
[2022-07-07] MEDS: AMIODARONE 200 MG TAB PO SCH (08:26)
[2022-07-07] MEDS: ASPIRIN 81 MG ECTAB PO SCH (08:26)
[2022-07-07] MEDS: carvediloL 12.5 MG TAB PO SCH (08:27)
[2022-07-07] MEDS: ENOXAPARIN INJ 40 MG/0.4 ML SYR SQ SCH (08:28)
[2022-07-07] MEDS: FLUTICASONE PROPIONATE NA SPR 16 GM BTL SCH (08:28)
[2022-07-07] MEDS: INSULIN ASPART PER UNIT SC SCH ×2 (08:36→12:56)
[2022-07-07] MEDS: ALBUT/IPRATROP 3MG/0.5MG NEB 3 ML VIAL NEB PRN (11:17)
--- NOTE | 2022-07-07 14:53 | Discharge Summary ---
Date of Service July 07, 2022 Admission HPI Per Admitting Provider Patient is a 57-year-old male with a past medical history of DM 2, hyperlipidemia, mitral regurgitation, HFrEF, obstructive sleep apnea, morbid obesity, AICD present, nonischemic cardiomyopathy, and hypertension who presents to the emergency department for chief complaint and of shortness of breath especially with exertion. Patient reports for the past week or so he has noticed worsening cold-like symptoms and shortness of breath. He reported to the emergency room for these reasons on 06/29/2022 where he was given conservative treatment with supplemental oxygen as well as IV fluids. There was an attempt to get him outpatient oxygen but this was not able to be done. He was discharged home and instructed if his symptoms worsened that he should return to the emergency room for further evaluation. Today, he noted that it was very difficult for him to catch his breath especially with ambulating up a flight of stairs. He states that his weight is actually a little low for him if not at baseline. He denies any chest pain. He reports that his AICD has not shocked him for the past month. Of note, he reports that he has been having some shortness of breath issues since as he had COVID at the time and his symptoms ultimately started to improve, however, with this new diagnosis of RSV, his symptoms have progressively worsened which brings him here today. Patient denies any nausea or vomiting. Does note that he has loose stools daily for the past 4 to 5 days otherwise has no other complaints at this time. ED course: In the triage area, was found to the patient's pulse ox was down in the low 80s. He was put on oxygen supplementation which improved it to the mid 90s. He was brought back and evaluated by one of the ED providers who ordered labs and imaging. Our creatinine of 1.65 (baseline of 1.1-1.3), total bilirubin of 3.5, high-sensitivity troponin of 26.8, BNP of 398, and a reconfirmed RSV positive test. Chest x-ray was obtained and showed pulmonary congestion with c ardiomegaly which is mildly improved from his visit on 06/29/2022. Patient was given Mucinex, DuoNeb, and methylprednisolone. Patient is currently feeling more comfortable and is on oxygen mask and saturating well on 6 L. It is at this time that the hospitalist service was consulted for evaluation admission to the hospital for care. Principal Diagnosis RSV Bronchiolitis Discharge Exam The patient is awake, alert and oriented 3, well developed and well nourished, normocephalic and atraumatic, lying in bed and in no acute distress. HEENT--PERRL, EOMI, mucous membranes and oropharynx mildly dry Neck--supple. No JVD. No bruits. Thyroid normal, trachea midline, no adenopathy. Heart--normal S1 and S2. No murmurs, rubs or gallops. Lungs--clear bilaterally, no respiratory distress, no accessory muscle use. Abdomen--normal bowel sounds and soft. Mild epigastric and left sided abdominal pain Extremities--no cyanosis or clubbing. No edema. Dermatologic--normal skin turgor, normal color, no abnormal lymph nodes, no rash. Neurologic--cranial nerves II through XII grossly intact. Rheumatologic--normal range of motion. Psychiatric--normal affect. Discharge Data Allergies Allergy/AdvReac Type Severity Reaction Status Date / Time No Known Allergies Allergy Verified 07/01/22 17:45 Consultations 07/01/22 18:32 ED Decision to Admit Stat 07/01/22 21:44 Consult Cardiology Routine 07/05/22 08:28 Consult Pulmonology Routine Ordered Studies 07/01/22 20:39 US RUQ [US liver] Routine 07/05/22 08:55 US Renal Bladder [US renal/blad retro comp] Routine Hospital Course (1) Hypoxia: Patient is a 57-year-old male with a past medical history of DM 2, hyperlipidemia, mitral regurgitation, HFrEF, obstructive sleep apnea, morbid obesity, AICD present, nonischemic cardiomyopathy, and hypertension who presents to the emergency department for chief complaint and of shortness of breath especially with exertion -Found to be hypoxic on admission -Tested positive for RSV -Chest x ray showed Cardiomegaly and pulmonary vascular congestion with mildly improved pulmonary edema. -Started on nasal oxygen, -Initally on home Bumex, but this was discontinued at the behest of cardiology, who believes patient currently is over diuresed -Now on room air -Pulm consulted, recommend Budesonide and formeterol. Discharge on Breo -Wean as tolerated (2) Bronchiolitis due to respiratory syncytial virus (RSV): Still some SOB, especially on exertion, cough and wheeze on exam evaluated by Pulm, will add Budesonide and formeterol (3) RSV infection: Tested positive for RSV Symptomatic management (4) Congestive heart failure with left ventricular diastolic dysfunction: No evidence of acute exacerbation, BNP 380 on admission will continue to hold Bumex per cardiology appreciate cardiology recs monitor I/O, daily weight (5) Acute kidney injury superimposed on CKD: likely due to diuretics hold bumex avoid nephrotoxics (6) HTN (hypertension): soft BP Hold anti htn meds (7) Diabetes mellitus type 2 in obese: Blood glucose is under good control continue insulin sliding scale (8) Obesity, morbid, BMI 40.0-49.9: adviced on lifestyle changes (9) Obstructive sleep apnea of adult: (10) AICD (automatic cardioverter/defibrillator) present: (11) Restrictive lung disease: Plan continue hospitalization, hopefully d/c tomorow, home oxygen has been arranged Total Time Total Time Spent Total Time Spent (In Minutes): 35 Discharge Plan Discharge Items Patient Disposition: Home - Self-Care Reason For Visit: SOB Discharge Diagnosis: bronchiolities Activity: Resume your previous activity Non-emergency contact: Primary Care Provider Call non-emergency contact if: you have any medication questions Follow-up/Referrals: Tamar Boss [Primary Care Provider] - Diet: Regular Addtl Attending Provider Instructions: please make arrangements to follow up with your regular PCP Please dont take your Bumex until you see or 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 G47.33 (DME) Auto Titrating CPAP Misc See Rx Instructions .MEDSUPPLY Qty: 1 0RF Rx Instructions: Auto PAP with 10-20mm H20. Lifetime usage. G47.33 amiodarone 400 mg tablet 400 mg PO QAM Qty: 90 3RF spironolactone 25 mg tablet 12.5 mg PO DAILY Qty: 45 3RF cholecalciferol (vitamin D3) 50 mcg (2,000 unit) capsule 50 mcg PO DAILY guaifenesin [Mucinex] 600 mg tablet extended release 12hr 600 mg PO Q12H PRN (Reason: Congestion) mexiletine 200 mg capsule 200 mg PO Q8H Qty: 90 2RF carvedilol 6.25 mg tablet 12.5 mg PO BID Qty: 180 3RF acetaminophen 500 mg tablet 500 mg PO Q4H PRN (Reason: Fever Or Pain) omega-3 fatty acids 1,250 mg capsule 1,250 mg PO DAILY multivitamin Tablet 1 tab PO DAILY albuterol sulfate 90 mcg/actuation HFA aerosol inhaler 2 puff INHALATION Q4H PRN (Reason: Shortness Of Breath Or Wheezing) bumetanide 2 mg tablet 2 mg PO BID Qty: 60 3RF atorvastatin 80 mg tablet 80 mg PO HS metolazone 5 mg tablet 5 mg PO DAILY PRN (Reason: WT GAIN) Rx Instructions: take with Bumetanide allopurinol 300 mg tablet 300 mg PO DAILY fluocinonide 0.05 % cream 1 applic topical BID PRN (Reason: Skin Irritation) Rx Instructions: Apply to areas of the trunk and extremities twice daily x 2 weeks as needed for flaring. aspirin 81 mg Tablet,Delayed Release (Dr/Ec) 81 mg PO DAILY zinc acetate 25 mg (zinc) Capsule 0 mg PO DAILY Rx Instructions: PT UNSURE OF STRENGTH potassium chloride [Klor-Con M20] 20 mEq tablet,ER particles/crystals 40 meq PO BID Qty: 120 0RF (DME) blood-glucose meter [OneTouch Verio Meter] [facility] See Rx Instructions .Route Qty: 1 0RF Rx Instructions: As directed (DME) OneTouch Verio test strips Strip See Rx Instructions .Route Qty: 100 0RF Rx Instructions: As directed once daily (DME) lancets [OneTouch Delica Lancets] 33 gauge misc See Rx Instructions .Route Qty: 100 0RF Rx Instructions: As directed once daily hydrocodone-homatropine [Hycodan] 5-1.5 mg/5 mL (5 mL) syrup 5 ml PO Q6H PRN (Reason: cough) Qty: 200 0RF Discharge Orders: Discharge Order (Routine); Ordered 07/07/22 Ordered By: Abby Carson/Other Patient Handouts: Managing Type 2 Diabetes, Healthy Meals for Diabetes, Diabetes: Meal Planning Admission Data Admit Date/Time: 07/01/22 20:02 Attending Provider: Abby Baldwin Admit Provider: Greg Perry Primary Care Provider: Tamar Boss Other Providers: Kieran Smith ; Peter Abdalla ; Yovany Saba Coding Level of Care Code HOSP INP/OBS DISCH >30 MIN Diagnoses Hypoxia R09.02 Bronchiolitis due to respiratory syncytial virus (RSV) J21.0 RSV infection B33.8 Congestive heart failure with left ventricular diastolic dysfunction I50.32 Congestive heart failure chronicity: chronic Acute kidney injury superimposed on CKD N17.9; N18.9 HTN (hypertension) I10 Diabetes mellitus type 2 in obese E11.69; E66.9 Obesity, morbid, BMI 40.0-49.9 E66.01 Obstructive sleep apnea of adult G47.33 AICD (automatic cardioverter/defibrillator) present Z95.810 Restrictive lung disease J98.4 Time Spent (min) 35
== END 2022-07-07 18:26 | disposition home or self-care (01) | DRG 202 ==
LOC: ED 16:56 → 4W 20:02 → SUATTDRO 20:02 → 4W 21:03

== ENCOUNTER 2022-07-10 19:12 | Inpatient (IN) ==
[~2022-07-10 19:12] MED LIST changes: -ACET-1256 PO; -AZIT500T26 PO; -CARV25TA PO; -CLOTCRE33 TOP; -FURO80TA63 PO; -LOSA1TAB38 PO; -LPT40 PO; -METO5TAB25 PO; -MULT-1027 PO; -OMEG10007 PO; -POTA-639 PO; +RAPID SEQUENCE INDUCTION BAG ONE; -RXC5 PO; -VLT/75 PO
[2022-07-10] MEDS ORDERED: AMIODARONE 360MG / 200ML D5W IV ONE (19:19)
[2022-07-10] MEDS ORDERED: AMIODARONE 150MG / 100ML D5W IV ONE (19:19)
[2022-07-10] MEDS ORDERED: 0.2 MICRON FILTER SET 1 EACH IV STA (19:20)
[2022-07-10] MEDS ORDERED: AMIODARONE / D5W 150 MG/100 ML BAG IV STA (19:20)
[2022-07-10] MEDS ORDERED: STAT IV Infusion **Titration per Protocol STA (19:20)
[2022-07-10] MEDS ORDERED: AMIODARONE IV BOLUS & DRIP IV STA (19:20)
--- NOTE | 2022-07-10 19:24 | Emergency Department Note ---
Impression & Plan Respiratory failure, Cardiomyopathy, Leukocytosis, Acute hyperglycemia, Respiratory syncytial virus (RSV) ED Provider Note NAME: MISSY PIERRE AGE: 57 SEX: M : 1965 ARRIVES VIA: Ambulance INFORMANT: Patient ED PROVIDER(S): Alvarado Webb DO CHIEF COMPLAINT: shortness of breath HPI: Patient is a 57-year-old male with a past medical history of VERONA with CKD, recent admission for RSV, diabetes, cardiomyopathy with heart failure and AICD placed with previous V. tach who presents the ER for shortness of breath which has been present since he was diagnosed with RSV around the . He was discharged about 2 days ago and has been getting worse. He admits to diffuse chest pain which has been present for the past 24 hours. He also admits to worsening shortness of breath. Still has a productive cough. He does have some discomfort throughout his abdomen which feels like he was punched. He admits to nausea but no vomiting. No dysuria, urgency, or frequency. No other exacerbating or remitting factors. PAST MEDICAL HISTORY:See Below PAST SURGICAL HISTORY:See Below FAMILY HISTORY:See Below SOCIAL HISTORY:See Below HOME MEDICATIONS:See Below ALLERGIES:See Below VITALS:See Below PHYSICAL EXAMINATION: GENERAL: Sitting up in bed, alert, ill-appearing, disheveled, comfortable on BiPAP EYE EXAM: normal conjunctiva. PERRL and EOM's grossly intact. OROPHARYNX: no exudate, no erythema, lips, buccal mucosa, and tongue normal and mucous membranes are moist NECK: supple, no nuchal rigidity, no adenopathy, non-tender LUNGS: Clear to auscultation. Normal chest wall mechanics HEART: no murmurs, S1 normal and S2 normal ABDOMEN: abdomen soft, non-tender, normo-active bowel sounds, no masses, no rebound or guarding. UPPER EXTREMITIES: upper extremities are grossly normal. LOWER EXTREMITIES: Pitting edema bilateral lower extremities. NEURO EXAM: Normal sensorium, cranial nerves II-XII grossly intact, normal speech, no gross weakness of arms, no gross weakness of legs. MEDICAL DECISION MAKING: Patient is a 57-year-old male brought in by EMS for respiratory distress on CPAP. Upon presentation he was flipped to BiPAP. IV was established blood work was obtained. Labs show leukocytosis of 14,000. No significant anemia. Recently admitted and discharged with RSV. INR 1.3. VBG with a pH of 7.27. CO2 slightly elevated at 54. BMP with a potassium of 6.5. Patient was given IV bicarb, calcium gluconate x2 as well as insulin and dextrose. Creatinine at 1.7. Bili mildly elevated 2.6. No transaminitis. Lipase is 85. RSV was positive. Chest x-ray with cardiomegaly. Patient remained on BiPAP while in the ER. His respiratory rate improved and he felt significantly better. He has pitting edema in the lower extremities as well as effusion on chest x-ray and I do favor this most consistent with CHF especially in light of him stopping his Bumex on discharge as he notes he was instructed to do this. External records were reviewed. He was discussed with Dr. Fahad Prado for further evaluation as well as treatment and management. Triage Nursing notes reviewed. Limited review of prior medical records performed Vital Signs: reviewed and remarkable for hypoxic, tachycardic Differential diagnosis: Differential diagnoses includes but is not limited to pneumonia, bronchitis, COPD/Asthma exacerbation, pneumothorax, pulmonary embolism, congestive heart failure, acute coronary syndrome ER treatment provided: See below Diagnostics interpreted by me include EKG and cardiac monitoring as listed below: -Cardiac Monitoring: An order was placed for continuous cardiac monitoring. The monitor shows a rate of 90 with paced rhythm. -ECG: Atrial paced rate 88 Left axis No PVCs QTC prolonged at 500 -Laboratory studies:Interpreted by me as stated above in MDM and shown below. Imaging studies: Xrays: As interpreted by me: Portable AP upright 1 view of the chest shows cephalization but no infiltrate per my read CTs show: none Consultation(s): Discussed with Dr. Fahad Prado as described above Procedures:none Critical Care: I have personally spent 32 minutes of critical care time in the direct management of this patient. This includes bedside care, interpretation of diagnostic studies, and testing, discussion with consultants, patient, and family members, and other required patient management activities. This 32 minutes is in excess of all separately billable procedures. 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 Dyslipidemia Dyspnea Elevated bilirubin Former smoker Hemoptysis Hypnagogic jerks Hypoxia Metabolic syndrome Non-rheumatic mitral regurgitation Obesity, morbid, BMI 40.0-49.9 Obstructive sleep apnea of adult Shortness of breath Systolic congestive heart failure Ventricular tachycardia (paroxysmal) Social History Smoking Status: Former smoker Tobacco Type: Cigarettes Second Hand Exposure: No; Do You Dip or Chew Tobacco: No; Hx Alcohol Use: Yes Alcohol type: other Hx Substance Use: No Preferred Language: Armenian Communication Ability: Effective Unit Aid Required: No Beliefs That Will Affect Care: None Current Living Situation: Alone Current Living Situation Comment: From home alone 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 Other Information That Helps Us Care for You: No Feels Safe at Home: Yes Safety Concerns: Feels Safe At This Time Assistive Devices: BiPap, CPAP and Glasses Allergies Allergies Allergy/AdvReac Type Severity Reaction Status Date / Time mexiletine AdvReac Intermediate MADE ME Verified 07/10/22 19:49 SICK Home Meds Home Medications Medication Instructions Recorded Confirmed acetaminophen 500 mg tablet 500 mg PO Q4H PRN Fever Or Pain 03/28/19 07/10/22 omega-3 fatty acids 1,250 mg 1,250 mg PO DAILY 03/28/19 07/10/22 capsule multivitamin 1 tab PO DAILY 12/01/19 07/10/22 cholecalciferol (vitamin D3) 50 50 mcg PO DAILY 04/05/21 07/10/22 mcg (2,000 unit) capsule atorvastatin 80 mg tablet 80 mg PO HS 10/13/21 07/10/22 allopurinol 300 mg tablet 300 mg PO DAILY 12/27/21 07/10/22 metolazone 5 mg tablet 5 mg PO DAILY PRN WT GAIN 12/27/21 07/10/22 aspirin 81 mg tablet,delayed 81 mg PO DAILY 04/07/22 07/10/22 release fluocinonide 0.05 % topical cream 1 applic topical BID PRN Skin 04/07/22 Irritation zinc acetate 25 mg (zinc) capsule 0 mg PO DAILY 04/07/22 07/10/22 guaifenesin 600 mg tablet, 600 mg PO Q12H PRN Congestion 05/26/22 07/10/22 extended release 12 hr (Mucinex) albuterol sulfate 90 mcg/actuation 2 puff inhalation Q4H PRN 07/01/22 07/10/22 aerosol inhaler Shortness Of Breath Or Wheezing allopurinol 100 mg tablet 100 mg PO DAILY 07/10/22 07/10/22 Previous Rx's Medication Instructions Recorded Auto Titrating CPAP #1 ea 03/16/20 CPAP Supplies #1 ea 03/16/20 bumetanide 2 mg tablet 2 mg PO BID #60 tabs 10/05/20 blood sugar diagnostic (OneTouch #100 ea 04/08/22 Verio test strips) blood-glucose meter (OneTouch #1 ea 04/08/22 Verio Meter) lancets 33 gauge (OneTouch Delica #100 ea 04/08/22 Lancets) potassium chloride 20 mEq 40 meq PO BID #120 tabs 04/08/22 tablet,extended release(part/cryst) (Klor-Con M) amiodarone 400 mg tablet 400 mg PO QAM #90 tabs 05/09/22 spironolactone 25 mg tablet 12.5 mg PO DAILY #45 tabs 05/16/22 carvedilol 6.25 mg tablet 12.5 mg PO BID #180 tabs 06/06/22 hydrocodone-homatropine 5 mg-1.5 5 ml PO Q6H PRN cough #200 mL 06/29/22 mg/5 mL (5 mL) oral syrup (Hycodan) fluticasone furoate 200 1 inh inhalation DAILY #60 ea 07/07/22 mcg-vilanterol 25 mcg/dose inhalation powder (Breo Ellipta) Results & Data (ED) Vital Signs Vital Signs - 24 hr 07/10/22 19:27 07/10/22 19:27 07/10/22 19:35 Pulse Rate 80 Pulse Rate [Right Finger] Respiratory Rate 27 H Respiratory Effort / Characteristics Grunting Labored Respiratory Depth Normal Respiratory Pattern Blood Pressure 116/55 L Blood Pressure [Right Arm] Blood Pressure Mean 75 Blood Pressure Mean [Right Arm] Pulse Oximetry 100 Oxygen Delivery Method CPAP BiPAP CPAP Fraction of Inspired Oxygen Sepsis Recent Fever Within 48 Hours No Sepsis New/Unexplained Change in Mental Status No Sepsis Action Taken by Nursing No Action Required 07/10/22 19:35 07/10/22 19:35 07/10/22 19:28 Pulse Rate 88 Pulse Rate [Right Finger] 84 Respiratory Rate 33 H Respiratory Effort / Characteristics Spontaneous Accessory Muscle Use Labored Retracting Short of Breath Respiratory Depth Respiratory Pattern Rapid/Deep Tachypnea Blood Pressure Blood Pressure [Right Arm] Blood Pressure Mean Blood Pressure Mean [Right Arm] Pulse Oximetry 100 100 Oxygen Delivery Method BiPAP CPAP Fraction of Inspired Oxygen 40 Sepsis Recent Fever Within 48 Hours Sepsis New/Unexplained Change in Mental Status Sepsis Action Taken by Nursing 07/10/22 19:46 07/10/22 19:51 07/10/22 20:14 Pulse Rate Pulse Rate [Right Finger] 83 81 Respiratory Rate 30 H Respiratory Effort / Characteristics Respiratory Depth Respiratory Pattern Blood Pressure Blood Pressure [Right Arm] 108/65 90/64 L 106/67 Blood Pressure Mean Blood Pressure Mean [Right Arm] 79 72 80 Pulse Oximetry 94 Oxygen Delivery Method BiPAP BiPAP Fraction of Inspired Oxygen Sepsis Recent Fever Within 48 Hours Sepsis New/Unexplained Change in Mental Status Sepsis Action Taken by Nursing 07/10/22 20:41 Pulse Rate Pulse Rate [Right Finger] 80 Respiratory Rate Respiratory Effort / Characteristics Respiratory Depth Respiratory Pattern Blood Pressure Blood Pressure [Right Arm] 118/61 Blood Pressure Mean Blood Pressure Mean [Right Arm] 80 Pulse Oximetry 94 Oxygen Delivery Method BiPAP Fraction of Inspired Oxygen Sepsis Recent Fever Within 48 Hours Sepsis New/Unexplained Change in Mental Status Sepsis Action Taken by Nursing Laboratory Data 07/10/22 19:23 07/10/22 19:23 Lab Results 07/10/22 07/10/22 07/10/22 Range/Units 19:23 19:23 19:23 WBC 13.96 H (4.8-10.8) K/ul RBC 4.55 L (4.63-6.08) M/uL Hgb 13.8 L (14.0-18.0) g/dl POC Hgb (14.0-18.0) g/dl Hct 43.0 (40.1-51.0) % POC Hct (42-52) % MCV 94.5 (80.0-100.0) fL MCH 30.3 (25.0-34.0) pg MCHC 32.1 (32.0-36.0) g/dL RDW Std Deviation 59.9 H (36.4-46.3) fL RDW Coeff of Kylee 17.8 H (11.5-14.5) % Plt Count 387 (130-400) K/uL MPV 9.9 (9.4-12.4) fL Immature Gran % (Auto) 1.1 % Neut % (Auto) 75.8 % Lymph % (Auto) 9.4 % [place] % (Auto) 10.0 % Eos % (Auto) 2.8 % Baso % (Auto) 0.9 % Neut # (Auto) 10.59 H (1.4-6.5) K/uL Lymph # (Auto) 1.31 (1.2-3.4) K/uL [place] # (Auto) 1.40 H (0.24-0.82) K/uL Eos # (Auto) 0.39 (0-0.50) K/uL Baso # (Auto) 0.12 (0-0.2) K/uL Immature Gran # (Auto) 0.15 H (0.00-0.02) K/uL Absolute Nucleated RBC 0.06 H (0-0) K/uL Nucleated RBC % (auto) 0.4 % PT 13.3 H (9.0-12.0) Seconds INR 1.3 H (0.9-1.1) VBG pH (7.36-7.41) VBG pCO2 (38-50) mmHg VBG pO2 mmHg VBG HCO3 mmol/L VBG O2 Saturation % VBG Base Excess mEq/L POC Sodium (135-144) mmol/L Sodium 134 L (136-145) mmol/L POC Potassium (3.3-5.0) mmol/L Potassium 6.5 H* (3.5-5.1) mmol/L POC Chloride (101-112) mmol/L Chloride 106 (98-107) mmol/L Carbon Dioxide 24 (21-32) mmol/L POC Total CO2 (24-31) mmol/L Anion Gap 4 (3-11) POC Anion Gap (16-25) mmol/L POC BUN (7-18) mg/dl BUN 33 H (6-23) mg/dl Creatinine 1.58 H (0.6-1.4) mg/dl POC Creatinine (0.6-1.3) mg/dl Est Cr Clr Drug Dosing 75.6 ml/min Est GFR ( Amer) 55.8 ml/min Est GFR (Non-Af Amer) 48.2 ml/min BUN/Creatinine Ratio 20.9 H (10-20) Glucose 154 H (70-99(Fasting)) mg/dl POC Glucose (other) (70-99) mg/dl Calcium 9.9 (8.5-10.1) mg/dl POC Ioniz Calcium Malachi (1.12-1.32) mmol/l Total Bilirubin 2.6 H (0.2-1.0) mg/dl AST 51 H (13-39) U/L ALT 48 (7-52) U/L Alkaline Phosphatase 81 (34-104) U/L Troponin I High Sens 16.0 (0-20) pg/ml Total Protein 8.0 (6.0-8.3) gm/dl Albumin 4.2 (3.4-5.0) gm/dl Globulin 3.8 (2.5-4.0) gm/dl Albumin/Globulin Ratio 1.1 (0.9-2) Lipase 85 H (11-82) U/L SARS-CoV-2 (PCR) (Negative) Influenza Type A (PCR) (Neg) Influenza Type B (PCR) (Neg) RSV (RT-PCR) (Neg) 07/10/22 07/10/22 07/10/22 Range/Units 19:23 19:28 19:30 WBC (4.8-10.8) K/ul RBC (4.63-6.08) M/uL Hgb (14.0-18.0) g/dl POC Hgb 15.0 (14.0-18.0) g/dl Hct (40.1-51.0) % POC Hct 44 (42-52) % MCV (80.0-100.0) fL MCH (25.0-34.0) pg MCHC (32.0-36.0) g/dL RDW Std Deviation (36.4-46.3) fL RDW Coeff of Kylee (11.5-14.5) % Plt Count (130-400) K/uL MPV (9.4-12.4) fL Immature Gran % (Auto) % Neut % (Auto) % Lymph % (Auto) % [place] % (Auto) % Eos % (Auto) % Baso % (Auto) % Neut # (Auto) (1.4-6.5) K/uL Lymph # (Auto) (1.2-3.4) K/uL [place] # (Auto) (0.24-0.82) K/uL Eos # (Auto) (0-0.50) K/uL Baso # (Auto) (0-0.2) K/uL Immature Gran # (Auto) (0.00-0.02) K/uL Absolute Nucleated RBC (0-0) K/uL Nucleated RBC % (auto) % PT (9.0-12.0) Seconds INR (0.9-1.1) VBG pH 7.27 L (7.36-7.41) VBG pCO2 54 H (38-50) mmHg VBG pO2 23 mmHg VBG HCO3 25 mmol/L VBG O2 Saturation < 60.0 % VBG Base Excess -2.9 mEq/L POC Sodium 137 (135-144) mmol/L Sodium (136-145) mmol/L POC Potassium 6.5 H* (3.3-5.0) mmol/L Potassium (3.5-5.1) mmol/L POC Chloride 108 (101-112) mmol/L Chloride (98-107) mmol/L Carbon Dioxide (21-32) mmol/L POC Total CO2 24 (24-31) mmol/L Anion Gap (3-11) POC Anion Gap 12.0 L (16-25) mmol/L POC BUN 32 H (7-18) mg/dl BUN (6-23) mg/dl Creatinine (0.6-1.4) mg/dl POC Creatinine 1.7 H (0.6-1.3) mg/dl Est Cr Clr Drug Dosing ml/min Est GFR ( Amer) ml/min Est GFR (Non-Af Amer) ml/min BUN/Creatinine Ratio (10-20) Glucose (70-99(Fasting)) mg/dl POC Glucose (other) 156 H (70-99) mg/dl Calcium (8.5-10.1) mg/dl POC Ioniz Calcium Malachi 1.29 (1.12-1.32) mmol/l Total Bilirubin (0.2-1.0) mg/dl AST (13-39) U/L ALT (7-52) U/L Alkaline Phosphatase (34-104) U/L Troponin I High Sens (0-20) pg/ml Total Protein (6.0-8.3) gm/dl Albumin (3.4-5.0) gm/dl Globulin (2.5-4.0) gm/dl Albumin/Globulin Ratio (0.9-2) Lipase (11-82) U/L SARS-CoV-2 (PCR) NEGATIVE (Negative) Influenza Type A (PCR) Negative (Neg) Influenza Type B (PCR) Negative (Neg) RSV (RT-PCR) Positive A* (Neg) Administered Medications Atorvastatin Calcium (Atorvastatin 40 Mg Tab) 80 mg PO HS SANDHYA Stop: 08/09/22 22:55 Last Admin: 07/10/22 23:57 Dose: 80 mg Documented By: SANDEE Carvedilol (Carvedilol 12.5 Mg Tab) 12.5 mg PO BID SANDHYA Stop: 08/09/22 22:55 Last Admin: 07/10/22 23:58 Dose: 12.5 mg Documented By: SANDEE Amiodarone HCl/Dextrose (Nexterone / D5w) 360 mg in 200 mls @ 33.333 mls/hr IV ONE ONE Stop: 07/11/22 01:30 Last Admin: 07/10/22 19:37 Dose: 1 mg/min, 33.3 mls/hr Documented By: FAMILIA Co-signed By: RUBY Discontinued Medications Amiodarone HCl/Dextrose (Amiodarone 360mg / 200ml D5w) Confirm Administered Dose 360 mg IV .STK-MED ONE Stop: 07/10/22 19:20 Last Admin: 07/10/22 19:23 Dose: Not Given Documented By: SEBLE Amiodarone HCl/Dextrose (Amiodarone 150mg / 100ml D5w) Confirm Administered Dose 150 mg IV .STK-MED ONE Stop: 07/10/22 19:20 Last Admin: 07/10/22 19:23 Dose: Not Given Documented By: SEBLE Amiodarone HCl (Amiodarone Iv Bolus & Drip) 1 each IV NOW STA; Protocol Stop: 07/10/22 19:21 Last Admin: 07/10/22 20:15 Dose: Not Given Documented By: FAMILIA Dextrose (Dextrose 50% 50 Ml Syringe) 50 ml IV NOW STA Stop: 07/10/22 20:19 Last Admin: 07/10/22 20:24 Dose: 50 ml Documented By: FAMILIA Furosemide (Furosemide 40 Mg/4 Ml Vial) 40 mg IV NOW STA Stop: 07/10/22 20:19 Last Admin: 07/10/22 20:24 Dose: 40 mg Documented By: FAMILIA Amiodarone HCl/Dextrose (Nexterone / D5w) 150 mg in 100 mls @ 600 mls/hr IV NOW STA Stop: 07/10/22 19:29 Last Infusion: 07/10/22 19:56 Dose: 0 mls/hr Documented By: FAMILIA Co-signed By: JOE Admin: 07/10/22 19:41 Dose: 600 mls/hr Documented By: FAMILIA Co-signed By: SEBLE Calcium Gluconate () 1,000 mg in 60 mls @ 240 mls/hr IV Q15M SANDHYA Stop: 07/10/22 20:59 Last Infusion: 07/10/22 21:16 Dose: 0 mls/hr Documented By: Admin: 07/10/22 21:00 Dose: 240 mls/hr Documented By: Infusion: 07/10/22 20:45 Dose: 0 mls/hr Documented By: Admin: 07/10/22 20:24 Dose: 240 mls/hr Documented By: FAMILIA Insulin Human Regular (Novolin-R Insulin Per Unit Charge) 10 units IV NOW STA Stop: 07/10/22 20:19 Last Admin: 07/10/22 20:25 Dose: 10 units Documented By: FAMILIA Co-signed By: GRACY Miscellaneous (Rapid Sequence Induction Bag) Confirm Administered Dose 1 each .ROUTE .STK-MED ONE Stop: 07/10/22 18:54 Last Admin: 07/10/22 19:24 Dose: Not Given Documented By: SEBLE Christiansen (Stat Iv Infusion Titration Per Protocol) 1 each N/A NOW STA Stop: 07/10/22 19:21 Last Admin: 07/10/22 20:15 Dose: Not Given Documented By: FAMILIA Sodium Bicarbonate (Sodium Bicarb 8.4% Inj 50 Meq/50 Ml Syr) 100 meq IV NOW STA Stop: 07/10/22 20:19 Last Admin: 07/10/22 20:24 Dose: 100 meq Documented By: FAMILIA Imaging Data Radiologist's Impression: Chest X-Ray 07/10/22 19:19 XR chest 1V portable HISTORY: 57 years-old Male Chest pain, nonspecific acute chest pain COMPARISON: 07/05/2022 TECHNIQUE: AP view of the chest FINDINGS: Cardiac silhouette is enlarged. Pulmonary vascular congestion with interstitial coarsening. Left subclavian pacer. No pneumothorax. Questions trace pleural effusions with mild bibasilar densities, likely atelectatic. Degenerative changes of the shoulders and spine. IMPRESSION: 1. Cardiomegaly with mildly progressed pulmonary edema. 2. Trace pleural effusions. ACT 112: Negative or not required by law. The above report was generated using voice recognition software. It may contain grammatical, syntax or spelling errors. Electronically signed by: Armaan Sher M.D. 07/10/2022 7:32 PM Discharge Plan Visit Data Chief Complaint: Respiratory Distress Stated Complaint: RESP DISTRESS ED Provider: Alvarado Webb Discharge Problem: Respiratory failure, Cardiomyopathy, Leukocytosis, Acute hyperglycemia, Respiratory syncytial virus (RSV) Patient Disposition: Admitted As Inpatient Discharge Instructions Interventions: ED Discharge Assessment Last Done: 07/10/22 22:09
[2022-07-10] MEDS ORDERED: AMIODARONE / D5W 360 MG/200 ML BAG IV ONE (19:31)
--- NOTE | 2022-07-10 19:33 | XRay Report ---
XR chest 1V portable HISTORY: 57 years-old Male Chest pain, nonspecific acute chest pain COMPARISON: 07/05/2022 TECHNIQUE: AP view of the chest FINDINGS: Cardiac silhouette is enlarged. Pulmonary vascular congestion with interstitial coarsening. Left subc lavian pacer. No pneumothorax. Questions trace pleural effusions with mild bibasilar densities, likel y atelectatic. Degenerative changes of the shoulders and spine. IMPRESSION: 1. Cardiomegaly with mildly progressed pulmonary edema. 2. Trace pleural effusions. ACT 112: Negative or not required by law. The above report was generated using voice recognition software. It may contain grammatical, syntax o r spelling errors. Electronically signed by: Armaan Sher M.D. 07/10/2022 7:32 PM
[2022-07-10 19:35] LABS: Base Excess VBG -2.9 mEq/L; HCO3 VBG 25 mmol/L; Oxygen Saturation VBG < 60.0 %; PCO2 VBG 54 mmHg (38-50); PO2 VBG 23 mmHg; pH VBG 7.27 (7.36-7.41)
[2022-07-10 19:36] LABS: Basophils # (auto) 0.12 K/uL (0-0.2); Basophils % (auto) 0.9 %; Eosinophils # (auto) 0.39 K/uL (0-0.50); Eosinophils % (auto) 2.8 %; Hemoglobin 13.8 g/dl (14.0-18.0); Immature Granulocytes # (auto) 0.15 K/uL (0.00-0.02); Immature Granulocytes % (auto) 1.1 %; Lymphocytes # (auto) 1.31 K/uL (1.2-3.4); Lymphocytes % (auto) 9.4 %; Mean Corpuscular Hemoglobin 30.3 pg (25.0-34.0); Mean Corpuscular Hgb Conc 32.1 g/dL (32.0-36.0); Mean Corpuscular Volume 94.5 fL (80.0-100.0); Mean Platelet Volume 9.9 fL (9.4-12.4); Neutrophils # (auto) 10.59 K/uL (1.4-6.5); Neutrophils % (auto) 75.8 %; Nucleated RBC # (auto) 0.06 K/uL (0-0); Nucleated RBC % (auto) 0.4 %; Platelet Count 387 K/uL (130-400); RDW Coefficient of Variation 17.8 % (11.5-14.5); RDW Standard Deviation 59.9 fL (36.4-46.3); Red Blood Count 4.55 M/uL (4.63-6.08); White Blood Count 13.96 K/ul (4.8-10.8)
[2022-07-10 19:40] LABS: iSTAT Creatinine 1.7 mg/dl (0.6-1.3); iSTAT Ionized Calcium 1.29 mmol/l (1.12-1.32); iSTAT Potassium 6.5 mmol/L (3.3-5.0)
[2022-07-10 19:49] LABS: INR 1.3 (0.9-1.1); Prothrombin Time 13.3 Seconds (9.0-12.0)
[2022-07-10 20:01] LABS: Albumin Globulin Ratio 1.1 (0.9-2); Albumin Level 4.2 gm/dl (3.4-5.0); BUN Creatinine Ratio 20.9 (10-20); Bilirubin,Total 2.6 mg/dl (0.2-1.0); Calcium 9.9 mg/dl (8.5-10.1); Creatinine Clr Calc Pharmacy 75.6 ml/min; Est GFR (African American) 55.8 ml/min; Est GFR (Non-African American) 48.2 ml/min; Globulin 3.8 gm/dl (2.5-4.0); Potassium 6.5 mmol/L (3.5-5.1)
[2022-07-10 20:17] LABS: Influenza A virus by PCR Negative (Neg); Influenza B virus by PCR Negative (Neg); SARS CoV2 RNA(COVID-19) Ceph NEGATIVE (Negative)
[2022-07-10] MEDS ORDERED: SODIUM BICARB 8.4% INJ 50 MEQ/50 ML SYR IV STA (20:18)
[2022-07-10] MEDS ORDERED: NovoLIN-R INSULIN PER UNIT CHARGE IV STA (20:18)
[2022-07-10] MEDS ORDERED: DEXTROSE 50% 50 ML SYRINGE IV STA (20:18)
[2022-07-10] MEDS ORDERED: FUROSEMIDE 40 MG/4 ML VIAL IV STA (20:18)
[2022-07-10 20:20] LABS: RSV by PCR Positive (Neg)
[2022-07-10] MEDS: CALCIUM GLUCONATE 1,000 MG/60 ML BAG IV SCH ×2 (20:24→21:00)
--- NOTE | 2022-07-10 21:10 | History & Physical Report ---
Date of Service July 10, 2022 Assessment & Plan (1) Acute on chronic respiratory failure with hypoxia: (2) CHF exacerbation: (3) Hyperkalemia: (4) Restrictive lung disease: (5) Elevated bilirubin: (6) Diabetes mellitus type 2 in obese: (7) Acute kidney injury superimposed on CKD: (8) Gout: (9) Ventricular tachycardia: (10) AICD (automatic cardioverter/defibrillator) present: Plan Acute on chronic respiratory failure with hypoxia/acute HFpEF exacerbation/AICD present/cardiomyopathy/hypertension- The patient will be admitted to telemetry for serial cardiac enzymes, serial EKG's, cardiac rhythm monitoring Patient recently admitted from 07/01-07/07/2022 for RSV, was dehydrated, and had his Bumex held on discharge. Since that time patient has developed increasing pulmonary edema based on symptomatology and chest x-ray He received furosemide 40 mg IV from the ED and will continue every morning, holding his oral Bumex for now Will hold his oral amiodarone 400 mg every morning, as patient had been started on amiodarone drip by EMS in the outpatient setting due to concerns regarding ventricular tachycardia. Report from [facility] does not note any episodes, however, will wait till cardiology reviews and they can then convert amiodarone drip back to regular amiodarone dosing or adjust the dosing as they choose Continue aspirin, carvedilol Hyperkalemia- Potassium 6.5 on admission Received 50 mils of D50, 10 units regular insulin IV, sodium bicarb 100 MEQ's IV and calcium gluconate 1 g IV Follow-up potassium is 5.0 Follow serial BMP and magnesium levels Hold spironolactone and potassium chloride COPD/asthma/COTY- Continue albuterol HFA, Breo Ellipta, CPAP at bedtime Diabetes mellitus- No medications on current medication list Placed on Accu-Cheks with NovoLog coverage per scale Gout- Continue allopurinol Hyperlipidemia- Continue atorvastatin History of Present Illness Chief Complaint: The patient presents to the emergency department with worsening shortness of breath over the past 2 days, with development of diffuse chest pain along with productive cough, having been discharged from the hospital on 07/07/2022 when he was treated for RSV Primary Care Provider: Tamar Boss The patient is a 57-year-old male with past medical history including acute respiratory failure due to RSV bronchiolitis, restrictive lung disease, amiodarone toxicity, diabetes mellitus type 2, dyslipidemia, hypotension, acute exacerbation of CHF, acute kidney injury, COTY, morbid obesity, HF PEF, ventricular tachycardia, AICD present, cardiomyopathy, hypertension, GI bleeding, UTI and ventricular fibrillation. He was most recently mated to [facility] from 07/01-07/07/2022 for respiratory failure due to RSV. At that time, he was also felt to be dehydrated, and his diuretics had been stopped. Since the time of discharge, the patient had become progressively more short of breath, and when presented to the ED was found to be in acute respiratory failure and placed on BiPAP. Chest x-ray showed CHF Abnormal laboratories: WBC 13.96, hemoglobin 13.8, hematocrit 43.0, sodium 134, potassium 6.5, creatinine 1.58 and glucose 154, total bilirubin 2.6 and AST 51. From the ED the patient received the following: Furosemide 40 mg IV, 50 mils of D50, regular insulin 10 units IV, sodium bicarb 100 mEq IV, amiodarone drip and calcium gluconate 1 g IV Allergies Allergy/AdvReac Type Severity Reaction Status Date / Time mexiletine AdvReac Intermediate MADE ME Verified 07/10/22 19:49 SICK Home Medications Medication Instructions Recorded Confirmed Type acetaminophen 500 mg tablet 500 mg PO Q4H PRN Fever Or Pain 03/28/19 07/10/22 History omega-3 fatty acids 1,250 mg 1,250 mg PO DAILY 03/28/19 07/10/22 History capsule multivitamin 1 tab PO DAILY 12/01/19 07/10/22 History Auto Titrating CPAP #1 ea 03/16/20 06/21/22 Rx CPAP Supplies #1 ea 03/16/20 06/21/22 Rx bumetanide 2 mg tablet 2 mg PO BID #60 tabs 10/05/20 07/10/22 Rx cholecalciferol (vitamin D3) 50 50 mcg PO DAILY 04/05/21 07/10/22 History mcg (2,000 unit) capsule atorvastatin 80 mg tablet 80 mg PO HS 10/13/21 07/10/22 History allopurinol 300 mg tablet 300 mg PO DAILY 12/27/21 07/10/22 History metolazone 5 mg tablet 5 mg PO DAILY PRN WT GAIN 12/27/21 07/10/22 History aspirin 81 mg tablet,delayed 81 mg PO DAILY 04/07/22 07/10/22 History release fluocinonide 0.05 % topical cream 1 applic topical BID PRN Skin 04/07/22 07/10/22 History Irritation zinc acetate 25 mg (zinc) capsule 0 mg PO DAILY 04/07/22 07/10/22 History blood sugar diagnostic (OneTouch #100 ea 04/08/22 05/26/22 Rx Verio test strips) blood-glucose meter (OneTouch #1 ea 04/08/22 05/26/22 Rx Verio Meter) lancets 33 gauge (OneTouch Delica #100 ea 04/08/22 05/26/22 Rx Lancets) potassium chloride 20 mEq 40 meq PO BID #120 tabs 04/08/22 07/10/22 Rx tablet,extended release(part/cryst) (Klor-Con M) amiodarone 400 mg tablet 400 mg PO QAM #90 tabs 05/09/22 07/10/22 Rx spironolactone 25 mg tablet 12.5 mg PO DAILY #45 tabs 05/16/22 07/10/22 Rx guaifenesin 600 mg tablet, 600 mg PO Q12H PRN Congestion 05/26/22 07/10/22 History extended release 12 hr (Mucinex) carvedilol 6.25 mg tablet 12.5 mg PO BID #180 tabs 06/06/22 07/10/22 Rx hydrocodone-homatropine 5 mg-1.5 5 ml PO Q6H PRN cough #200 mL 06/29/22 07/10/22 Rx mg/5 mL (5 mL) oral syrup (Hycodan) albuterol sulfate 90 mcg/actuation 2 puff inhalation Q4H PRN 07/01/22 07/10/22 History aerosol inhaler Shortness Of Breath Or Wheezing fluticasone furoate 200 1 inh inhalation DAILY #60 ea 07/07/22 07/10/22 Rx mcg-vilanterol 25 mcg/dose inhalation powder (Breo Ellipta) allopurinol 100 mg tablet 100 mg PO DAILY 07/10/22 07/10/22 History Past Med/Surg History Medical History (Updated 07/11/22 @ 02:13 by Fahad Prado MD) Bronchiolitis due to respiratory syncytial virus (RSV) Cardiomyopathy, nonischemic Diabetes mellitus type 2 in obese 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 Dyslipidemia Dyspnea Elevated bilirubin Former smoker Hemoptysis Hypnagogic jerks Hypoxia Metabolic syndrome Non-rheumatic mitral regurgitation Obesity, morbid, BMI 40.0-49.9 Obstructive sleep apnea of adult Shortness of breath Systolic congestive heart failure Ventricular tachycardia (paroxysmal) Social History Smoking Status: Former smoker Tobacco Type: Cigarettes Second Hand Exposure: No; Do You Dip or Chew Tobacco: No; Hx Alcohol Use: Yes Alcohol type: other Hx Substance Use: No Preferred Language: Uzbek Communication Ability: Effective Smeller Required: No Beliefs That Will Affect Care: None Current Living Situation: Alone Current Living Situation Comment: From home alone 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 Other Information That Helps Us Care for You: No Feels Safe at Home: Yes Safety Concerns: Feels Safe At This Time Assistive Devices: BiPap, CPAP and Glasses Review of Systems Review of Systems: The patient denies palpitations, lower extremity swelling, sore throat, fevers, chills, sweats, nausea, vomiting, diarrhea , constipation, abdominal pain, pelvic pain, blood in urine or stool, dysuria, urinary frequency or urgency, loss of consciousness, rash, abnormal bruising or bleeding, imbalance, focal weakness, numbness or tingling in arms or legs, generalized arthralgias or myalgias, back or neck pain, or night sweats. The review of systems is otherwise negative other than for that already noted above, and at least 10 systems have been reviewed. Physical Exam Physical Exam: The patient is awake, alert and oriented 3, well developed and well nourished, normocephalic and atraumatic, lying in bed and in moderate respiratory distress, improved on BiPAP HEENT--PERRL, EOMI, mucous membranes and oropharynx dry. Neck--supple. No JVD. No bruits. Thyroid normal, trachea midline, no adenopathy. Heart--normal S1 and S2. No murmurs, rubs or gallops. Lungs--coarse breath sounds with wheezes throughout. Moderate respiratory distress, no accessory muscle use. Abdomen--normal bowel sounds and soft. Nontender. Nondistended. Morbidly obese Extremities--no cyanosis or clubbing. 1+ bilateral pretibial pitting edema. Dermatologic--several small surface abrasions, right lewis greater than left Neurologic--cranial nerves II through XII grossly intact. Rheumatologic--limited exam Psychiatric--normal affect. Results & Data Results & Data ([facility]) Vital Signs (Past 12 Hours) Vital Signs Pulse Pulse Resp BP BP Pulse Ox O2 Del Method 07/10/22 20:41 80 118/61 94 BiPAP 07/10/22 20:14 81 30 H 106/67 94 BiPAP 07/10/22 19:51 90/64 L 07/10/22 19:46 83 108/65 BiPAP 07/10/22 19:28 88 33 H 100 07/10/22 19:35 CPAP 07/10/22 19:35 84 100 BiPAP 07/10/22 19:35 CPAP 07/10/22 19:27 BiPAP 07/10/22 19:27 80 27 H 116/55 L 100 CPAP FiO2 07/10/22 20:41 07/10/22 20:14 07/10/22 19:51 07/10/22 19:46 07/10/22 19:28 40 07/10/22 19:35 07/10/22 19:35 07/10/22 19:35 07/10/22 19:27 07/10/22 19:27 Laboratory Results Laboratory Results WBC 13.96 K/ul (4.8-10.8) H 07/10/22 19: RBC 4.55 M/uL (4.63-6.08) L 07/10/22: Hgb 13.8 g/dl (14.0-18.0) L 07/10/22: POC Hgb 15.0 g/dl (14.0-18.0) 07/10/22 19: Hct 43.0 % (40.1-51.0) 07/10/22 19: POC Hct 44 % (42-52) 07/10/22 19: MCV 94.5 fL (80.0-100.0) 07/10/22 19: MCH 30.3 pg (25.0-34.0) 07/10/22 19: MCHC 32.1 g/dL (32.0-36.0) 07/10/22 19: RDW Std Deviation 59.9 fL (36.4-46.3) H 07/10/22: RDW Coeff of Kylee 17.8 % (11.5-14.5) H 07/10/22 19: Plt Count 387 K/uL (130-400) 07/10/22 19: MPV 9.9 fL (9.4-12.4) 07/10/22 19: Immature Gran % (Auto) 1.1 % 07/10/22 19: Neut % (Auto) 75.8 % 07/10/22 19: Lymph % (Auto) 9.4 % 07/10/22 19: [place] % (Auto) 10.0 % 07/10/22 19: Eos % (Auto) 2.8 % 07/10/22: Baso % (Auto) 0.9 % 07/10/22: Neut # (Auto) 10.59 K/uL (1.4-6.5) H 07/10/22 19: Lymph # (Auto) 1.31 K/uL (1.2-3.4) 07/10/22 19: [place] # (Auto) 1.40 K/uL (0.24-0.82) H 07/10/22 19: Eos # (Auto) 0.39 K/uL (0-0.50) 07/10/22 19: Baso # (Auto) 0.12 K/uL (0-0.2) 07/10/22: Immature Gran # (Auto) 0.15 K/uL (0.00-0.02) H 07/10/22 19: Absolute Nucleated RBC 0.06 K/uL (0-0) H 07/10/22: Nucleated RBC % (auto) 0.4 % 07/10/22: PT 13.3 Seconds (9.0-12.0) H 07/10/22 19: INR 1.3 (0.9-1.1) H 07/10/22 19: VBG pH 7.27 (7.36-7.41) L 07/10/22: VBG pCO2 54 mmHg (38-50) H 07/10/22 19:23 VBG pO2 23 mmHg 07/10/22 19:23 VBG HCO3 25 mmol/L 07/10/22 19:23 VBG O2 Saturation < 60.0 % 07/10/22 19: VBG Base Excess -2.9 mEq/L 07/10/22 19: POC Sodium 137 mmol/L (135-144) 07/10/22 19:28 Sodium 138 mmol/L (136-145) 07/10/22 23:09 POC Potassium 6.5 mmol/L (3.3-5.0) H* 07/10/22 19:28 Potassium 5.0 mmol/L (3.5-5.1) D 07/10/22 23:09 POC Chloride 108 mmol/L (101-112) 07/10/22 19: Chloride 106 mmol/L (98-107) 07/10/22 23:09 Carbon Dioxide 26 mmol/L (21-32) 07/10/22 23:09 POC Total CO2 24 mmol/L (24-31) 07/10/22 19:28 Anion Gap 6 (3-11) 07/10/22 23:09 POC Anion Gap 12.0 mmol/L (16-25) L 07/10/22 19:28 POC BUN 32 mg/dl (7-18) H 07/10/22 19:28 BUN 33 mg/dl (6-23) H 07/10/22 23:09 Creatinine 1.45 mg/dl (0.6-1.4) H 07/10/22 23:09 POC Creatinine 1.7 mg/dl (0.6-1.3) H 07/10/22 19:28 Est Cr Clr Drug Dosing 79.1 ml/min 07/10/22 23:09 Est GFR ( Amer) 62.0 ml/min 07/10/22 23:09 Est GFR (Non-Af Amer) 53.5 ml/min 07/10/22 23:09 BUN/Creatinine Ratio 22.8 (10-20) H 07/10/22 23:09 Glucose 92 mg/dl (70-99(Fasting)) 07/10/22 23:09 POC Glucose (other) 156 mg/dl (70-99) H 07/10/22 19:28 Calcium 10.2 mg/dl (8.5-10.1) H 07/10/22 23:09 POC Ioniz Calcium Malachi 1.29 mmol/l (1.12-1.32) 07/10/22 19:28 Total Bilirubin 2.6 mg/dl (0.2-1.0) H 07/10/22 19:23 AST 51 U/L (13-39) H 07/10/22 19: ALT 48 U/L (7-52) 07/10/22 19: Alkaline Phosphatase 81 U/L (34-104) 07/10/22 19: Troponin I High Sens 16.0 pg/ml (0-20) 07/10/22 19: Total Protein 8.0 gm/dl (6.0-8.3) 07/10/22 19: Albumin 4.2 gm/dl (3.4-5.0) 07/10/22 19: Globulin 3.8 gm/dl (2.5-4.0) 07/10/22 19: Albumin/Globulin Ratio 1.1 (0.9-2) 07/10/22 19: Lipase 85 U/L (11-82) H 07/10/22 19:23 SARS-CoV-2 (PCR) NEGATIVE (Negative) 07/10/22 19:30 Influenza Type A (PCR) Negative (Neg) 07/10/22 19:30 Influenza Type B (PCR) Negative (Neg) 07/10/22 19:30 RSV (RT-PCR) Positive (Neg) A* 07/10/22 19:30 Impressions Chest X-Ray 07/10/22 19:19 XR chest 1V portable HISTORY: 57 years-old Male Chest pain, nonspecific acute chest pain COMPARISON: 07/05/2022 TECHNIQUE: AP view of the chest FINDINGS: Cardiac silhouette is enlarged. Pulmonary vascular congestion with interstitial coarsening. Left subclavian pacer. No pneumothorax. Questions trace pleural effusions with mild bibasilar densities, likely atelectatic. Degenerative changes of the shoulders and spine. IMPRESSION: 1. Cardiomegaly with mildly progressed pulmonary edema. 2. Trace pleural effusions. ACT 112: Negative or not required by law. The above report was generated using voice recognition software. It may contain grammatical, syntax or spelling errors. Electronically signed by: Armaan Sher M.D. 07/10/2022 7:32 PM Code Status & VTE Plan Code Status Full code VTE Prophylaxis Plan VTE Prophylaxis will be ordered: Yes PG Care Time/CCT Total # of Minutes Spent Total Time Spent with Patient: Total time spent is greater than 50% in coordination of care (as documented) at patient's floor/unit and/or counseling patient: Coding Level of Care Code 94441 INT INP/OBS CARE 3/75MIN Diagnoses Acute on chronic respiratory failure with hypoxia J96.21 CHF exacerbation I50.9 Hyperkalemia E87.5 Restrictive lung disease J98.4 Elevated bilirubin R17 Diabetes mellitus type 2 in obese E11.69; E66.9 Acute kidney injury superimposed on CKD N17.9; N18.9 Gout M10.9 Ventricular tachycardia I47.2 AICD (automatic cardioverter/defibrillator) present Z95.810
[2022-07-10] MEDS ORDERED: DEXTROSE 50% 50 ML SYRINGE IV PRN (22:56)
[2022-07-10] MEDS ORDERED: CARBOHYDRATES FOR HYPOGLYCEMIA PO PRN (22:56)
[2022-07-10] MEDS ORDERED: GLUCOSE 40% GEL 15 GM TUBE PO PRN (22:56)
[2022-07-10] MEDS ORDERED: GLUCOSE 10 TAB/TUBE PO PRN (22:56)
[2022-07-10] MEDS ORDERED: GLUCAGON FOR INJ 1 MG VIAL SQ PRN (22:56)
[2022-07-10] MEDS ORDERED: ALBUTEROL HFA 8 GM INHALER INH PRN (22:56)
[2022-07-10] MEDS ORDERED: ONDANSETRON INJ 2 MG/ML 2 ML VIAL IV PRN (22:56)
[2022-07-10] MEDS ORDERED: HYDROcodone/HOMATROPINE SYRUP 5MG/1.5MG 5ML UDP PO PRN (23:13)
[2022-07-10] MEDS: ATORVASTATIN 40 MG TAB PO SCH (23:57)
[2022-07-10] MEDS: carvediloL 12.5 MG TAB PO SCH (23:58)
[2022-07-11 00:04] LABS: BUN Creatinine Ratio 22.8 (10-20); Calcium 10.2 mg/dl (8.5-10.1); Creatinine Clr Calc Pharmacy 79.1 ml/min; Est GFR (Non-African American) 53.5 ml/min
[2022-07-11] MEDS ORDERED: AMIODARONE 200 MG TAB PO SCH (09:00)
[2022-07-11 09:18] LABS: Base Excess ABG -1.1 mEq/L (-9-1.8); HCO3 ABG 24 mmol/L (19-24); Oxygen Saturation ABG 92.5 % (90-95); PCO2 ABG 42 mmHg (35-46); PO2 ABG 65 mmHg (80-95); pH ABG 7.37 (7.35-7.45)
[2022-07-11 09:21] LABS: Allen Test Pos (Pos)
[2022-07-11] MEDS: AMIODARONE / D5W 360 MG/200 ML BAG IV SCH ×2 (09:27→19:11)
[2022-07-11] MEDS: INSULIN ASPART PER UNIT SC SCH ×4 (09:28→20:36)
[2022-07-11] MEDS: allopurinoL 100 MG TAB PO SCH (09:29)
[2022-07-11] MEDS: guaiFENesin 600 MG TABCR PO PRN (09:29)
[2022-07-11] MEDS: ASPIRIN 81 MG ECTAB PO SCH (09:29)
[2022-07-11] MEDS: CHOLECALCIFEROL 1,000 UNITS 25 MCG TAB PO SCH (09:29)
[2022-07-11] MEDS: OMEGA-3 (PURIFIED FISH OIL) 1 GM CAP PO SCH (09:29)
[2022-07-11] MEDS: carvediloL 12.5 MG TAB PO SCH ×2 (09:29→20:39)
[2022-07-11] MEDS: allopurinoL 300 MG TAB PO SCH (09:29)
[2022-07-11] MEDS: FUROSEMIDE 40 MG/4 ML VIAL IV SCH (09:29)
[2022-07-11] MEDS: MULTIVITAMIN TAB PO SCH (09:29)
[2022-07-11] MEDS: FLUTICASONE/VILANTEROL 200/25MCG 14 PUFFS/INHALER INH SCH (09:30)
[2022-07-11] MEDS: ZINC SULFATE 220 MG CAPSULE PO SCH (09:30)
[2022-07-11 09:35] LABS: Basophils # (auto) 0.08 K/uL (0-0.2); Basophils % (auto) 0.7 %; Eosinophils # (auto) 0.34 K/uL (0-0.50); Eosinophils % (auto) 2.9 %; Hematocrit (blood only) 36.2 % (40.1-51.0); Hemoglobin 11.7 g/dl (14.0-18.0); Immature Granulocytes # (auto) 0.11 K/uL (0.00-0.02); Immature Granulocytes % (auto) 0.9 %; Lymphocytes # (auto) 0.96 K/uL (1.2-3.4); Lymphocytes % (auto) 8.1 %; Mean Corpuscular Hemoglobin 30.2 pg (25.0-34.0); Mean Corpuscular Hgb Conc 32.3 g/dL (32.0-36.0); Mean Corpuscular Volume 93.5 fL (80.0-100.0); Mean Platelet Volume 9.9 fL (9.4-12.4); Monocytes % (auto) 10.1 %; Neutrophils # (auto) 9.16 K/uL (1.4-6.5); Neutrophils % (auto) 77.3 %; Platelet Count 260 K/uL (130-400); RDW Coefficient of Variation 17.9 % (11.5-14.5); RDW Standard Deviation 59.9 fL (36.4-46.3); Red Blood Count 3.87 M/uL (4.63-6.08); White Blood Count 11.85 K/ul (4.8-10.8)
[2022-07-11 10:12] LABS: Albumin Level 3.5 gm/dl (3.4-5.0); BUN Creatinine Ratio 21.6 (10-20); Calcium 9.3 mg/dl (8.5-10.1); Creatinine Clr Calc Pharmacy 77.2 ml/min; Est GFR (African American) 60.4 ml/min; Est GFR (Non-African American) 52.1 ml/min; Magnesium 2.2 mg/dl (1.7-2.4); Phosphorus 4.1 mg/dl (2.5-4.9); Potassium 4.6 mmol/L (3.5-5.1)
[2022-07-11] MEDS ORDERED: FUROSEMIDE 40 MG/4 ML VIAL IV ONE (16:06)
--- NOTE | 2022-07-11 16:07 | Hospitalist Progress Note ---
Date of Service July 11, 2022 Assessment & Plan (1) Acute on chronic respiratory failure with hypoxia: Plan: Presented with acute on chronic respiratory failure with hypoxia and hypercarbia, secondary to acute on chronic HFrEF, RSV Patient recently admitted from 07/01-07/07/2022 for RSV, was dehydrated, and had his Bumex held on discharge Since that time patient has developed increasing pulmonary edema based on symptomatology and chest x-ray, increased peripheral edema The hypercarbic respiratory failure is secondary to ongoing respiratory distress at home with hypoxia Corrected overnight with BiPAP, now weaned to 2 L nasal cannula -Continues on furosemide 40 mg IV daily-give another dose this evening -Daily weights, strict I's and O's, low-sodium diet -Continue supplemental O2 as needed to keep pulse ox greater than 88% -Will need two-step walk test prior to discharge (2) CHF exacerbation: Plan: As above Follow BMP Echocardiogram with moderately reduced EF 35-40%, moderate global hypokinesis of left ventricle, left atrium severely dilated, severe MR, mild-moderate TR, RVSP elevated at greater than 60 mmHg, IVC mildly dilated Continue carvedilol, diuretics He is not on an SHELLIE inhibitor or ARB at this time (3) Ventricular tachycardia: Plan: Apparently had sustained V. tach in the ambulance on the way here, was placed on amiodarone drip in the ER-continue for now and holding home p.o. amiodarone Is no longer on mexiletine Appreciate cardiology consultation Pacer interrogation reveals V. fib treated on 07/07 while in the hospital Keep electrolytes replete (4) Hyperkalemia: Plan: Potassium elevated at 6.5 on admission as he was taken off his Bumex but continued on his oral potassium chloride Hold oral potassium chloride and home spironolactone Starting IV Lasix since admission Potassium is now corrected Follow BMP (5) Elevated bilirubin: Plan: Bilirubin elevated at 2.6 which was actually improved from previous a few months ago Suspect hepatic congestion from heart failure as AST also mildly elevated (6) Diabetes mellitus type 2 in obese: Plan: Diabetes mellitus- No medications on current medication list Placed on Accu-Cheks with NovoLog coverage per scale (7) Acute kidney injury superimposed on CKD: Plan: Creatinine elevated at 1.48 and stable from yesterday Continue diuresis Follow BMP (8) Gout: Plan: Continue home allopurinol No acute issues (9) AICD (automatic cardioverter/defibrillator) present: Plan: For history of V. tach and heart failure Plan DVT prophylaxis-add Lovenox Disposition-continued stay in PCU Admission and Anticipated Discharge Date Admission Date: July 10, 2022 Subjective Patient anxious about his swollen legs. Was weaned off BiPAP overnight and improved with his shortness of breath. Denies chest pains. Discussed his care with cardiology. Telemetry with sinus rhythm, first-degree AV block, IVCD, rates 80s to 90s Blood pressure did drop to the 80s and he felt lightheaded today and got a small bolus of 250 mL of LR. Review of Systems Review of Systems: All systems reviewed & are unremarkable except as noted in HPI & below Physical Exam Constitutional: WD/WN, vitals as above Eyes: + anicteric sclerae Neck: trachea midline, no thyromegaly Respiratory: normal respiratory effort; no cough Auscultation: + diminished lung sounds (bases); no crackles and no wheezes Cardiovascular: Rate/Rhythm: regular rate and regular rhythm Heart Sounds: no murmur Extremities: + edema (3+ pitting edema legs bilat) Chest (Breasts): Chest: normal inspection of chest Gastrointestinal (Abdomen): normal bowel sounds, soft, nontender, no hepatosplenomegaly Musculoskeletal: Extremities: no cyanosis and no clubbing Skin: no rashes, warm and dry Neurologic: moves all extremities and awake; no focal motor deficits Psychiatric: A+Ox3, euthymic affect Results & Data Results & Data ([facility]) Vital Signs (Past 12 Hours) Vital Signs Temp Pulse Pulse Resp BP Pulse Ox O2 Del Method 07/11/22 15:45 79 07/11/22 15:25 36.6 C 80 18 96/63 L 95 Room Air 07/11/22 11:32 36.6 C 81 18 95/64 L 99 BiPAP 07/11/22 10:19 Nasal Cannula 07/11/22 08:00 36.8 C 80 20 109/68 97 Nasal Cannula 07/11/22 07:30 80 07/11/22 07:00 81 23 94 O2 Flow Rate FiO2 07/11/22 15:45 07/11/22 15:25 07/11/22 11:32 2 07/11/22 10:19 2 07/11/22 08:00 2 07/11/22 07:30 07/11/22 07:00 30 Laboratory Results Labs reviewed PG Care Time/CCT Total # of Minutes Spent Total Time Spent with Patient: Total time spent is greater than 50% in coordination of care (as documented) at patient's floor/unit and/or counseling patient: Coding Level of Care Code 68650 SUB INP/OBS CARE 3/50MIN Diagnoses Acute on chronic respiratory failure with hypoxia J96.21 CHF exacerbation I50.9 Ventricular tachycardia I47.2 Hyperkalemia E87.5 Elevated bilirubin R17 Diabetes mellitus type 2 in obese E11.69; E66.9 Acute kidney injury superimposed on CKD N17.9; N18.9 Gout M10.9 AICD (automatic cardioverter/defibrillator) present Z95.810
--- NOTE | 2022-07-11 18:04 | XCELERA ---
[id number]
--- NOTE | 2022-07-11 18:18 | Electrocardiogram Report ---
Test Reason : Blood Pressure : / mmHG Vent. Rate : 088 BPM Atrial Rate : 088 BPM P-R Int : 292 ms QRS Dur : 118 ms QT Int : 414 ms P-R-T Axes : 000 087 055 degrees QTc Int : 500 ms Atrial-paced rhythm with prolonged AV conduction Non-specific intra-ventricular conduction delay Nonspecific ST abnormality Prolonged QT Abnormal ECG When compared with ECG of 01-JUL-2022 18:07, Questionable change in QRS duration Confirmed by Ravindra Moran ([id number]) on 07/11/2022 6:18:15 PM Referred By: REFERRED SELF Confirmed By:Arley Moran
--- NOTE | 2022-07-11 18:19 | Electrocardiogram Report ---
Test Reason : Blood Pressure : / mmHG Vent. Rate : 080 BPM Atrial Rate : 078 BPM P-R Int : 306 ms QRS Dur : 144 ms QT Int : 464 ms P-R-T Axes : 000 072 065 degrees QTc Int : 535 ms Poor data quality, interpretation may be adversely affected AV dual-paced rhythm with prolonged AV conduction Abnormal ECG When compared with ECG of 10-JUL-2022 19:15, (unconfirmed) Electronic ventricular pacemaker has replaced Electronic atrial pacemaker Confirmed by Ravindra Moran ([id number] on 07/11/2022 6:19:19 PM Referred By: REFERRED SELF Confirmed By:Arley Moran
--- NOTE | 2022-07-11 18:39 | Cardiology Consultation ---
Date of Consultation July 11, 2022 Assessment & Plan (1) CHF exacerbation: (2) Ventricular tachycardia: (3) AICD (automatic cardioverter/defibrillator) present: (4) Cardiomyopathy: Plan 1. Congestive heart failure: He appears to have decompensated systolic heart failure. He was not taking a diuretic at home. He affected significant weight gain and progressive edema with decline in his breathing function. Diuretics reinstitute here in the hospital. We will need to continue the current dose monitoring his output, renal function electrolytes closely. 2. Cardiomyopathy: Intermediate in severity. Not on optimal medical therapy due to symptoms associated with hypotension. Was tried on Jardiance with resultant urinary tract infection. Continue carvedilol, spironolactone and bumetanide. 3. Ventricular fibrillation: He has had several episodes of ventricular fibr illation over the past year. Last episode leading up to his most recent admission was April 06. Curiously, interrogation of his device today reveals an episode of ventricular fibrillation treated appropriately by his device on July 07 while he was in the hospital. No episodes noted in the past 2 days to suggest any arrhythmia during his transport to the hospital. I think we will discontinue his amiodarone infusion. Will continue oral amiodarone. This was withheld at the last visit over concerns about toxicity. 4. Normally functioning dual-chamber ICD 5. Hyperkalemia: Improving. Patient continued to potassium supplementation and spironolactone without diuretic. History of Present Illness Reason for Consultation: Congestive heart fail ventricular tachycardia Requesting Physician: Meredith Attending Physician: Daria Harper MD History of Present Illness The patient is a 57-year-old gentleman well known to me from the outpatient setting who suffers from a nonischemic cardiomyopathy, associated congestive heart failure and ventricular arrhythmias. He was recently admitted to the hospital symptoms dyspnea felt to be related to respiratory syncytial virus. Patient states that his breathing did improve throughout his hospitalization primarily after the addition of steroids to his medical regimen. He received pulmonary therapy and was discharged last . He states that the time of discharge she was told not to take his usual diuretic. Over the course of the next several days he began to experience progressive lower extremity edema worsening dyspnea and abdominal discomfort. Based on the symptoms he called an ambulance and was transported to the hospital. There was some concern in route that he was suffering from ventricular arrhythmias. No therapy was provided. The patient was started on amiodarone infusion and given diuretics for decompensated heart failure. Patient states that he has had significant difficulty breathing. His main concern was a sense of a CABG in my chest. This appeared to be uncomfortable and was present at the time of discharge. He did have some dizziness and lightheadedness and has rare sense of palpitation. He did not experience a typical episode of loss of consciousness or symptoms consistent with therapy from his device. He states that when he left the hospital he had no evidence of peripheral edema but over the past couple of days has developed significant swelling in his legs. Allergies Allergy/AdvReac Type Severity Reaction Status Date / Time mexiletine AdvReac Intermediate MADE ME Verified 07/10/22 19:49 SICK Home Medications Medication Instructions Recorded Confirmed Type acetaminophen 500 mg tablet 500 mg PO Q4H PRN Fever Or Pain 03/28/19 07/10/22 History omega-3 fatty acids 1,250 mg 1,250 mg PO DAILY 03/28/19 07/10/22 History capsule multivitamin 1 tab PO DAILY 12/01/19 07/10/22 History Auto Titrating CPAP #1 ea 03/16/20 06/21/22 Rx CPAP Supplies #1 ea 03/16/20 06/21/22 Rx bumetanide 2 mg tablet 2 mg PO BID #60 tabs 10/05/20 07/10/22 Rx cholecalciferol (vitamin D3) 50 50 mcg PO DAILY 04/05/21 07/10/22 History mcg (2,000 unit) capsule atorvastatin 80 mg tablet 80 mg PO HS 10/13/21 07/10/22 History allopurinol 300 mg tablet 300 mg PO DAILY 12/27/21 07/10/22 History metolazone 5 mg tablet 5 mg PO DAILY PRN WT GAIN 12/27/21 07/10/22 History aspirin 81 mg tablet,delayed 81 mg PO DAILY 04/07/22 07/10/22 History release fluocinonide 0.05 % topical cream 1 applic topical BID PRN Skin 04/07/22 07/10/22 History Irritation zinc acetate 25 mg (zinc) capsule 0 mg PO DAILY 04/07/22 07/10/22 History blood sugar diagnostic (Responsible CityTouch #100 ea 04/08/22 05/26/22 Rx Verio test strips) blood-glucose meter (Responsible CityTouch #1 ea 04/08/22 05/26/22 Rx Verio Meter) lancets 33 gauge (OneTouch Delica #100 ea 04/08/22 05/26/22 Rx Lancets) potassium chloride 20 mEq 40 meq PO BID #120 tabs 04/08/22 07/10/22 Rx tablet,extended release(part/cryst) (Klor-Con M) amiodarone 400 mg tablet 400 mg PO QAM #90 tabs 05/09/22 07/10/22 Rx spironolactone 25 mg tablet 12.5 mg PO DAILY #45 tabs 05/16/22 07/10/22 Rx guaifenesin 600 mg tablet, 600 mg PO Q12H PRN Congestion 05/26/22 07/10/22 History extended release 12 hr (Mucinex) carvedilol 6.25 mg tablet 12.5 mg PO BID #180 tabs 06/06/22 07/10/22 Rx hydrocodone-homatropine 5 mg-1.5 5 ml PO Q6H PRN cough #200 mL 06/29/22 07/10/22 Rx mg/5 mL (5 mL) oral syrup (Hycodan) albuterol sulfate 90 mcg/actuation 2 puff inhalation Q4H PRN 07/01/22 07/10/22 History aerosol inhaler Shortness Of Breath Or Wheezing fluticasone furoate 200 1 inh inhalation DAILY #60 ea 07/07/22 07/10/22 Rx mcg-vilanterol 25 mcg/dose inhalation powder (Breo Ellipta) allopurinol 100 mg tablet 100 mg PO DAILY 07/10/22 07/10/22 History Patient History Medical History (Updated 07/11/22 @ 18:35 by Ravindra Moran MD) Bronchiolitis due to respiratory syncytial virus (RSV) Cardiomyopathy, nonischemic Diabetes mellitus type 2 in obese 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 Dyslipidemia Dyspnea Elevated bilirubin Former smoker Hemoptysis Hypnagogic jerks Hypoxia Metabolic syndrome Non-rheumatic mitral regurgitation Obesity, morbid, BMI 40.0-49.9 Obstructive sleep apnea of adult Shortness of breath Systolic congestive heart failure Ventricular tachycardia (paroxysmal) Social History Smoking Status: Former smoker Tobacco Type: Cigarettes Second Hand Exposure: No; Do You Dip or Chew Tobacco: No; Hx Alcohol Use: Yes Alcohol type: other Hx Substance Use: No Preferred Language: Georgian Communication Ability: Effective Counter Attendant Required: No Beliefs That Will Affect Care: None Current Living Situation: Alone Current Living Situation Comment: From home alone 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 Mood and affect appeared normal. He answered all questions appropriately. HEENT: Pupils are equal and reactive to light and accommodation. Extraocular movements are intact. The sclerae are anicteric. Neuro: Cranial nerves intact Lungs: Some reduced breath sounds at both bases. Occasional expiratory wheezing. Rare crackle. Cardiac: Heart demonstrates a regular rate and rhythm. Normal S1 and S2. No murmurs on examination. Pulses: The patient has palpable radial pulses bilaterally that are equal in intensity Extremities: There was no evidence of hypoperfusion. There is no cyanosis or clubbing. Severe lower extremity edema and left hand edema Skin: I did not appreciate any rashes on examination today. Results & Data ([facility]) Vital Signs (Past 12 Hours) Vital Signs Temp Pulse Pulse Resp BP Pulse Ox O2 Del Method 07/11/22 15:45 79 07/11/22 15:25 36.6 C 80 18 96/63 L 95 Room Air 07/11/22 11:32 36.6 C 81 18 95/64 L 99 BiPAP 07/11/22 10:19 Nasal Cannula 07/11/22 08:00 36.8 C 80 20 109/68 97 Nasal Cannula 07/11/22 07:30 80 07/11/22 07:00 81 23 94 O2 Flow Rate FiO2 07/11/22 15:45 07/11/22 15:25 07/11/22 11:32 2 07/11/22 10:19 2 07/11/22 08:00 2 07/11/22 07:30 07/11/22 07:00 30 Laboratory Results Abnormal Lab Results 07/10/22 07/10/22 07/10/22 19:23 19:23 19:23 WBC 13.96 H RBC 4.55 L Hgb 13.8 L POC Hgb Hct 43.0 POC Hct MCV 94.5 MCH 30.3 MCHC 32.1 RDW Std Deviation 59.9 H RDW Coeff of Kylee 17.8 H Plt Count 387 MPV 9.9 Immature Gran % (Auto) 1.1 Neut % (Auto) 75.8 Lymph % (Auto) 9.4 [place] % (Auto) 10.0 Eos % (Auto) 2.8 Baso % (Auto) 0.9 Neut # (Auto) 10.59 H Lymph # (Auto) 1.31 [place] # (Auto) 1.40 H Eos # (Auto) 0.39 Baso # (Auto) 0.12 Immature Gran # (Auto) 0.15 H Absolute Nucleated RBC 0.06 H Nucleated RBC % (auto) 0.4 PT 13.3 H INR 1.3 H ABG pH ABG pCO2 ABG pO2 ABG HCO3 ABG O2 Saturation ABG Base Excess Bryce Test VBG pH VBG pCO2 VBG pO2 VBG HCO3 VBG O2 Saturation VBG Base Excess Oxygen Given POC Sodium Sodium 134 L POC Potassium Potassium 6.5 H* POC Chloride Chloride 106 Carbon Dioxide 24 POC Total CO2 Anion Gap 4 POC Anion Gap POC BUN BUN 33 H Creatinine 1.58 H POC Creatinine Est Cr Clr Drug Dosing 75.6 Est GFR ( Amer) 55.8 Est GFR (Non-Af Amer) 48.2 BUN/Creatinine Ratio 20.9 H Glucose 154 H POC Glucose POC Glucose (other) Calcium 9.9 POC Ioniz Calcium Malachi Phosphorus Magnesium Total Bilirubin 2.6 H AST 51 H ALT 48 Alkaline Phosphatase 81 Troponin I High Sens 16.0 Total Protein 8.0 Albumin 4.2 Globulin 3.8 Albumin/Globulin Ratio 1.1 Lipase 85 H SARS-CoV-2 (PCR) Influenza Type A (PCR) Influenza Type B (PCR) RSV (RT-PCR) 07/10/22 07/10/22 07/10/22 19:23 19:28 19:30 WBC RBC Hgb POC Hgb 15.0 Hct POC Hct 44 MCV MCH MCHC RDW Std Deviation RDW Coeff of Kylee Plt Count MPV Immature Gran % (Auto) Neut % (Auto) Lymph % (Auto) [place] % (Auto) Eos % (Auto) Baso % (Auto) Neut # (Auto) Lymph # (Auto) [place] # (Auto) Eos # (Auto) Baso # (Auto) Immature Gran # (Auto) Absolute Nucleated RBC Nucleated RBC % (auto) PT INR ABG pH ABG pCO2 ABG pO2 ABG HCO3 ABG O2 Saturation ABG Base Excess Bryce Test VBG pH 7.27 L VBG pCO2 54 H VBG pO2 23 VBG HCO3 25 VBG O2 Saturation < 60.0 VBG Base Excess -2.9 Oxygen Given POC Sodium 137 Sodium POC Potassium 6.5 H* Potassium POC Chloride 108 Chloride Carbon Dioxide POC Total CO2 24 Anion Gap POC Anion Gap 12.0 L POC BUN 32 H BUN Creatinine POC Creatinine 1.7 H Est Cr Clr Drug Dosing Est GFR ( Amer) Est GFR (Non-Af Amer) BUN/Creatinine Ratio Glucose POC Glucose POC Glucose (other) 156 H Calcium POC Ioniz Calcium Malachi 1.29 Phosphorus Magnesium Total Bilirubin AST ALT Alkaline Phosphatase Troponin I High Sens Total Protein Albumin Globulin Albumin/Globulin Ratio Lipase SARS-CoV-2 (PCR) NEGATIVE Influenza Type A (PCR) Negative Influenza Type B (PCR) Negative RSV (RT-PCR) Positive A* 07/10/22 07/11/22 07/11/22 23:09 07:14 08:55 WBC RBC Hgb POC Hgb Hct POC Hct MCV MCH MCHC RDW Std Deviation RDW Coeff of Kylee Plt Count MPV Immature Gran % (Auto) Neut % (Auto) Lymph % (Auto) [place] % (Auto) Eos % (Auto) Baso % (Auto) Neut # (Auto) Lymph # (Auto) [place] # (Auto) Eos # (Auto) Baso # (Auto) Immature Gran # (Auto) Absolute Nucleated RBC Nucleated RBC % (auto) PT INR ABG pH 7.37 ABG pCO2 42 ABG pO2 65 L ABG HCO3 24 ABG O2 Saturation 92.5 ABG Base Excess -1.1 Bryce Test Pos VBG pH VBG pCO2 VBG pO2 VBG HCO3 VBG O2 Saturation VBG Base Excess Oxygen Given 2L POC Sodium Sodium 138 POC Potassium Potassium 5.0 D POC Chloride Chloride 106 Carbon Dioxide 26 POC Total CO2 Anion Gap 6 POC Anion Gap POC BUN BUN 33 H Creatinine 1.45 H POC Creatinine Est Cr Clr Drug Dosing 79.1 Est GFR ( Amer) 62.0 Est GFR (Non-Af Amer) 53.5 BUN/Creatinine Ratio 22.8 H Glucose 92 POC Glucose 109 H POC Glucose (other) Calcium 10.2 H POC Ioniz Calcium Malachi Phosphorus Magnesium Total Bilirubin AST ALT Alkaline Phosphatase Troponin I High Sens Total Protein Albumin Globulin Albumin/Globulin Ratio Lipase SARS-CoV-2 (PCR) Influenza Type A (PCR) Influenza Type B (PCR) RSV (RT-PCR) 07/11/22 07/11/22 07/11/22 09:05 09:05 11:21 WBC 11.85 H RBC 3.87 L Hgb 11.7 L POC Hgb Hct 36.2 L POC Hct MCV 93.5 MCH 30.2 MCHC 32.3 RDW Std Deviation 59.9 H RDW Coeff of Kylee 17.9 H Plt Count 260 MPV 9.9 Immature Gran % (Auto) 0.9 Neut % (Auto) 77.3 Lymph % (Auto) 8.1 [place] % (Auto) 10.1 Eos % (Auto) 2.9 Baso % (Auto) 0.7 Neut # (Auto) 9.16 H Lymph # (Auto) 0.96 L [place] # (Auto) 1.20 H Eos # (Auto) 0.34 Baso # (Auto) 0.08 Immature Gran # (Auto) 0.11 H Absolute Nucleated RBC Nucleated RBC % (auto) PT INR ABG pH ABG pCO2 ABG pO2 ABG HCO3 ABG O2 Saturation ABG Base Excess Bryce Test VBG pH VBG pCO2 VBG pO2 VBG HCO3 VBG O2 Saturation VBG Base Excess Oxygen Given POC Sodium Sodium 139 POC Potassium Potassium 4.6 POC Chloride Chloride 107 Carbon Dioxide 27 POC Total CO2 Anion Gap 5 POC Anion Gap POC BUN BUN 32 H Creatinine 1.48 H POC Creatinine Est Cr Clr Drug Dosing 77.2 Est GFR ( Amer) 60.4 Est GFR (Non-Af Amer) 52.1 BUN/Creatinine Ratio 21.6 H Glucose 124 H POC Glucose 223 H POC Glucose (other) Calcium 9.3 POC Ioniz Calcium Malachi Phosphorus 4.1 Magnesium 2.2 Total Bilirubin AST ALT Alkaline Phosphatase Troponin I High Sens Total Protein Albumin 3.5 Globulin Albumin/Globulin Ratio Lipase SARS-CoV-2 (PCR) Influenza Type A (PCR) Influenza Type B (PCR) RSV (RT-PCR) 07/11/22 16:25 WBC RBC Hgb POC Hgb Hct POC Hct MCV MCH MCHC RDW Std Deviation RDW Coeff of Kylee Plt Count MPV Immature Gran % (Auto) Neut % (Auto) Lymph % (Auto) [place] % (Auto) Eos % (Auto) Baso % (Auto) Neut # (Auto) Lymph # (Auto) [place] # (Auto) Eos # (Auto) Baso # (Auto) Immature Gran # (Auto) Absolute Nucleated RBC Nucleated RBC % (auto) PT INR ABG pH ABG pCO2 ABG pO2 ABG HCO3 ABG O2 Saturation ABG Base Excess Bryce Test VBG pH VBG pCO2 VBG pO2 VBG HCO3 VBG O2 Saturation VBG Base Excess Oxygen Given POC Sodium Sodium POC Potassium Potassium POC Chloride Chloride Carbon Dioxide POC Total CO2 Anion Gap POC Anion Gap POC BUN BUN Creatinine POC Creatinine Est Cr Clr Drug Dosing Est GFR ( Amer) Est GFR (Non-Af Amer) BUN/Creatinine Ratio Glucose POC Glucose 110 H POC Glucose (other) Calcium POC Ioniz Calcium Malachi Phosphorus Magnesium Total Bilirubin AST ALT Alkaline Phosphatase Troponin I High Sens Total Protein Albumin Globulin Albumin/Globulin Ratio Lipase SARS-CoV-2 (PCR) Influenza Type A (PCR) Influenza Type B (PCR) RSV (RT-PCR) Diagnostic Findings Chest x-ray was obtained the time admission revealed cardiomegaly and pulmonary edema Echocardiogram was obtained today which revealed moderately reduced LV systolic function with ejection fraction around 40%. There was severe dilation of left ventricle, left atrium and severe mitral regurgitation. Elevated pulmonary pressures. Performed a device interrogation of a dual-chamber ICD. Normal function with an episode of treated ventricular fibrillation on 07/07/2022 around 11:30 a.m. no other arrhythmias ECG Additional Comments: EKG demonstrates an atrially paced rhythm with prolonged AV conduction PG Care Time/CCT Total # of Minutes Spent Total Time Spent with Patient: Total time spent is greater than 50% in coordination of care (as documented) at patient's floor/unit and/or counseling patient: Coding Level of Care Code OFFICE CONSULT LVL 4, 40 MIN Diagnoses CHF exacerbation I50.9 Ventricular tachycardia I47.2 AICD (automatic cardioverter/defibrillator) present Z95.810 Cardiomyopathy I42.9
[2022-07-11] MEDS: ATORVASTATIN 40 MG TAB PO SCH (20:39)
[2022-07-11] MEDS: ACETAMINOPHEN 500 MG TAB PO PRN (20:46)
[2022-07-12 07:23] LABS: Basophils # (auto) 0.06 K/uL (0-0.2); Basophils % (auto) 0.6 %; Eosinophils % (auto) 4.3 %; Hematocrit (blood only) 36.3 % (40.1-51.0); Hemoglobin 11.8 g/dl (14.0-18.0); Immature Granulocytes # (auto) 0.07 K/uL (0.00-0.02); Immature Granulocytes % (auto) 0.8 %; Lymphocytes # (auto) 0.82 K/uL (1.2-3.4); Lymphocytes % (auto) 8.8 %; Mean Corpuscular Hemoglobin 29.6 pg (25.0-34.0); Mean Corpuscular Hgb Conc 32.5 g/dL (32.0-36.0); Mean Corpuscular Volume 91.2 fL (80.0-100.0); Mean Platelet Volume 9.7 fL (9.4-12.4); Monocytes # (auto) 0.79 K/uL (0.24-0.82); Monocytes % (auto) 8.5 %; Neutrophils # (auto) 7.14 K/uL (1.4-6.5); Platelet Count 267 K/uL (130-400); RDW Coefficient of Variation 17.5 % (11.5-14.5); RDW Standard Deviation 57.4 fL (36.4-46.3); Red Blood Count 3.98 M/uL (4.63-6.08); White Blood Count 9.28 K/ul (4.8-10.8)
[2022-07-12] MEDS: ACETAMINOPHEN 500 MG TAB PO PRN (08:16)
[2022-07-12] MEDS: CHOLECALCIFEROL 1,000 UNITS 25 MCG TAB PO SCH (08:16)
[2022-07-12] MEDS: ASPIRIN 81 MG ECTAB PO SCH (08:17)
[2022-07-12] MEDS: guaiFENesin 600 MG TABCR PO PRN (08:17)
[2022-07-12] MEDS: MULTIVITAMIN TAB PO SCH (08:17)
[2022-07-12] MEDS: ZINC SULFATE 220 MG CAPSULE PO SCH (08:17)
[2022-07-12] MEDS: allopurinoL 100 MG TAB PO SCH (08:17)
[2022-07-12] MEDS: OMEGA-3 (PURIFIED FISH OIL) 1 GM CAP PO SCH (08:17)
[2022-07-12] MEDS: allopurinoL 300 MG TAB PO SCH (08:17)
[2022-07-12] MEDS: FLUTICASONE/VILANTEROL 200/25MCG 14 PUFFS/INHALER INH SCH (08:17)
[2022-07-12] MEDS: INSULIN ASPART PER UNIT SC SCH ×4 (08:18→21:17)
[2022-07-12 08:27] LABS: Albumin Level 3.3 gm/dl (3.4-5.0); BUN Creatinine Ratio 21.1 (10-20); Creatinine Clr Calc Pharmacy 70.5 ml/min; Est GFR (African American) 54.6 ml/min; Est GFR (Non-African American) 47.1 ml/min; Phosphorus 4.3 mg/dl (2.5-4.9); Potassium 3.6 mmol/L (3.5-5.1)
[2022-07-12] MEDS: carvediloL 12.5 MG TAB PO SCH ×2 (09:27→20:16)
[2022-07-12] MEDS: ENOXAPARIN INJ 40 MG/0.4 ML SYR SQ SCH ×2 (10:20→20:17)
[2022-07-12] MEDS: FUROSEMIDE 40 MG/4 ML VIAL IV SCH (10:21)
[2022-07-12] MEDS: AMIODARONE 200 MG TAB PO SCH (12:10)
--- NOTE | 2022-07-12 14:32 | Electrocardiogram Report ---
Test Reason : Blood Pressure : / mmHG Vent. Rate : 081 BPM Atrial Rate : 081 BPM P-R Int : 278 ms QRS Dur : 134 ms QT Int : 462 ms P-R-T Axes : 108 102 057 degrees QTc Int : 536 ms Suspect arm lead reversal, interpretation assumes no reversal Atrial-paced rhythm with prolonged AV conduction Rightward axis Non-specific intra-ventricular conduction block Abnormal ECG When compared with ECG of 11-JUL-2022 05:13, Electronic atrial pacemaker has replaced Electronic ventricular pacemaker Confirmed by Ravindra Moran ([id number]) on 07/12/2022 2:31:25 PM Referred By: REFERRED SELF Confirmed By:Arley Moran
--- NOTE | 2022-07-12 18:19 | Cardiology Progress Note ---
Date of Service July 12, 2022 Assessment & Plan (1) CHF exacerbation: (2) Ventricular tachycardia: (3) AICD (automatic cardioverter/defibrillator) present: (4) Cardiomyopathy: Plan 1. Congestive heart failure: Lungs improved. Breathing improved. Mildly hypotensive (not unusual for him). Lasix held today. Still a lot of peripheral edema. WIll check BNP in AM. Optivol was rising before admission. 2. Cardiomyopathy: Intermediate in severity. Not on optimal medical therapy due to symptoms associated with hypotension. Was tried on Jardiance with resultant urinary tract infection. Continue carvedilol, spironolactone and bumetanide. 3. Ventricular fibrillation: Continue amiodarone 4. Normally functioning dual-chamber ICD 5. Hyperkalemia: resolved Admission and Anticipated Discharge Date Admission Date: July 10, 2022 Subjective MIld dizziness today. Minimal activity as he was restricted to bed by nursing staff. Breathing improved. Review of Systems Review of Systems: Per HPI Physical Exam Physical Exam: The patient is alert and oriented. Mood and affect appeared normal. He answered all questions appropriately. HEENT: Pupils are equal and reactive to light and accommodation. Extraocular movements are intact. The sclerae are anicteric. Neuro: Cranial nerves intact Lungs: Clear, Normal respiratory effort. Cardiac: Heart demonstrates a regular rate and rhythm. Normal S1 and S2. No murmurs on examination. Pulses: The patient has palpable radial pulses bilaterally that are equal in intensity. Left hand swollen vs right Extremities: There was no evidence of hypoperfusion. There is no cyanosis or clubbing. Legs in compression stockings Skin: I did not appreciate any rashes on examination today. Results & Data ([facility]) Vital Signs (Past 12 Hours) Vital Signs Temp Pulse Pulse Resp BP Pulse Ox O2 Del Method 07/12/22 14:53 36.8 C 82 18 105/70 95 Room Air 07/12/22 11:22 36.5 C 80 20 89/52 L 92 Nasal Cannula 07/12/22 08:00 Nasal Cannula 07/12/22 08:09 80 07/12/22 07:57 82 20 97/57 L 96 Nasal Cannula O2 Flow Rate 07/12/22 14:53 07/12/22 11:22 2 07/12/22 08:00 2 07/12/22 08:09 07/12/22 07:57 2 Laboratory Results Abnormal Lab Results 07/11/22 07/12/22 07/12/22 20:17 06:37 06:37 WBC 9.28 RBC 3.98 L Hgb 11.8 L Hct 36.3 L MCV 91.2 MCH 29.6 MCHC 32.5 RDW Std Deviation 57.4 H RDW Coeff of Kylee 17.5 H Plt Count 267 MPV 9.7 Immature Gran % (Auto) 0.8 Neut % (Auto) 77.0 Lymph % (Auto) 8.8 [place] % (Auto) 8.5 Eos % (Auto) 4.3 Baso % (Auto) 0.6 Neut # (Auto) 7.14 H Lymph # (Auto) 0.82 L [place] # (Auto) 0.79 Eos # (Auto) 0.40 Baso # (Auto) 0.06 Immature Gran # (Auto) 0.07 H Sodium 139 Potassium 3.6 D Chloride 103 Carbon Dioxide 31 Anion Gap 5 BUN 34 H Creatinine 1.61 H Est Cr Clr Drug Dosing 70.5 Est GFR ( Amer) 54.6 Est GFR (Non-Af Amer) 47.1 BUN/Creatinine Ratio 21.1 H Glucose 107 H POC Glucose 121 H Calcium 9.0 Phosphorus 4.3 Magnesium 2.0 Albumin 3.3 L 07/12/22 07/12/22 07/12/22 07:08 11:34 16:29 WBC RBC Hgb Hct MCV MCH MCHC RDW Std Deviation RDW Coeff of Kylee Plt Count MPV Immature Gran % (Auto) Neut % (Auto) Lymph % (Auto) [place] % (Auto) Eos % (Auto) Baso % (Auto) Neut # (Auto) Lymph # (Auto) [place] # (Auto) Eos # (Auto) Baso # (Auto) Immature Gran # (Auto) Sodium Potassium Chloride Carbon Dioxide Anion Gap BUN Creatinine Est Cr Clr Drug Dosing Est GFR ( Amer) Est GFR (Non-Af Amer) BUN/Creatinine Ratio Glucose POC Glucose 117 H 185 H 126 H Calcium Phosphorus Magnesium Albumin PG Care Time/CCT Total # of Minutes Spent Total Time Spent with Patient: Total time spent is greater than 50% in coordination of care (as documented) at patient's floor/unit and/or counseling patient: Coding Level of Care Code 74912 SUB INP/OBS CARE 2/35MIN Diagnoses CHF exacerbation I50.9 Ventricular tachycardia I47.2 AICD (automatic cardioverter/defibrillator) present Z95.810 Cardiomyopathy I42.9
[2022-07-12] MEDS ORDERED: FUROSEMIDE 40 MG/4 ML VIAL IV ONE (19:00)
--- NOTE | 2022-07-12 19:56 | Hospitalist Progress Note ---
Date of Service July 12, 2022 Assessment & Plan (1) Acute on chronic respiratory failure with hypoxia: Plan: Presented with acute on chronic respiratory failure with hypoxia and hypercarbia, secondary to acute on chronic HFrEF, RSV Patient recently admitted from 07/01-07/07/2022 for RSV, was dehydrated, and had his Bumex held on discharge Since that time patient has developed increasing pulmonary edema based on symptomatology and chest x-ray, increased peripheral edema The hypercarbic respiratory failure is secondary to ongoing respiratory distress at home with hypoxia Corrected overnight with BiPAP, now weaned to intermittent room air with 1-2 LNC Diurese as able to-hypotension is limiting but will give another dose of IV Lasix evening of 07/13 -We will give Lasix in the morning if renal function okay as creatinine starting to rise -Holding home spironolactone for hyperkalemia and acute kidney injury -Daily weights, strict I's and O's, low-sodium diet -Continue supplemental O2 as needed to keep pulse ox greater than 88% -Will need two-step walk test prior to discharge -Will inquire to see if he qualifies for home BiPAP (2) CHF exacerbation: Plan: As above Follow BMP Echocardiogram with moderately reduced EF 35-40%, moderate global hypokinesis of left ventricle, left atrium severely dilated, severe MR, mild-moderate TR, RVSP elevated at greater than 60 mmHg, IVC mildly dilated Continue carvedilol, diuretics as able to He is not on an SHELLIE inhibitor or ARB at this time-possibly due to renal issues? Will discuss with cardiology -Potentially restart spironolactone tomorrow -Has plans to see the advanced heart failure team at [place] in the next few weeks (3) Ventricular tachycardia: Plan: Apparently had sustained V. tach in the ambulance on the way here, was placed on amiodarone drip in the ER-continue for now and holding home p.o. amiodarone Is no longer on mexiletine due to side effects Appreciate cardiology consultation Pacer interrogation reveals V. fib treated on 07/07 while in the hospital last admission but patient does not remember this Keep electrolytes replete (4) Hyperkalemia: Plan: Potassium elevated at 6.5 on admission as he was taken off his Bumex but continued on his oral potassium chloride Hold oral potassium chloride and home spironolactone Starting IV Lasix since admission Potassium is now corrected Follow BMP (5) Elevated bilirubin: Plan: Bilirubin elevated at 2.6 which was actually improved from previous a few months ago Suspect hepatic congestion from heart failure as AST also mildly elevated (6) Diabetes mellitus type 2 in obese: Plan: Diabetes mellitus-hemoglobin A1c 5.8% in 05/2022-prediabetes No medications on current medication list from home Placed on Accu-Cheks with NovoLog coverage per scale (7) Acute kidney injury superimposed on CKD: Plan: Creatinine now rising further to 1.6 after more IV diuretics Continue diuresis as remains volume overloaded Follow BMP (8) Gout: Plan: Continue home allopurinol No acute issues (9) AICD (automatic cardioverter/defibrillator) present: Plan: For history of V. tach and heart failure (10) Morbid obesity: Plan: Morbid obesity with BMI 44.7 Plan DVT prophylaxis- Lovenox Disposition-continued stay in PCU Admission and Anticipated Discharge Date Admission Date: July 10, 2022 Subjective Patient reports ongoing swelling in lower extremities. No chest pains or shortness of breath. Is weaned off oxygen to room air. Telemetry with normal sinus rhythm and PVCs, rates in the 80s He is requesting home BiPAP as he reports feeling much more comfortable on it than CPAP Review of Systems 2 Review of Systems: All systems reviewed & are unremarkable except as noted in HPI & below Physical Exam Constitutional: WD/WN, vitals as above Eyes: + anicteric sclerae Neck: trachea midline, no thyromegaly Respiratory: normal respiratory effort; no cough Auscultation: + diminished lung sounds (bases); no crackles and no wheezes Cardiovascular: Rate/Rhythm: regular rate and regular rhythm Heart Sounds: no murmur Extremities: + edema (2+ pitting edema legs bilat, improved) Chest (Breasts): Chest: normal inspection of chest Gastrointestinal (Abdomen): normal bowel sounds, soft, nontender, no hepatosplenomegaly Musculoskeletal: Extremities: no cyanosis and no clubbing Skin: no rashes, warm and dry Neurologic: moves all extremities and awake; no focal motor deficits Psychiatric: A+Ox3, euthymic affect Results & Data Results & Data ([facility]) Vital Signs (Past 12 Hours) Vital Signs Temp Pulse Pulse Resp BP Pulse Ox O2 Del Method 07/12/22 19:38 37.2 C 80 18 110/72 98 Room Air 07/12/22 14:53 36.8 C 82 18 105/70 95 Room Air 07/12/22 11:22 36.5 C 80 20 89/52 L 92 Nasal Cannula 07/12/22 08:00 Nasal Cannula 07/12/22 08:09 80 07/12/22 07:57 82 20 97/57 L 96 Nasal Cannula O2 Flow Rate 07/12/22 19:38 07/12/22 14:53 07/12/22 11:22 2 07/12/22 08:00 2 07/12/22 08:09 07/12/22 07:57 2 Laboratory Results 07/12/22 06:37 07/12/22 06:37 PG Care Time/CCT Total # of Minutes Spent Total Time Spent with Patient: Total time spent is greater than 50% in coordination of care (as documented) at patient's floor/unit and/or counseling patient: Coding Level of Care Code 26780 SUB INP/OBS CARE 2/35MIN Diagnoses Acute on chronic respiratory failure with hypoxia J96.21 CHF exacerbation I50.9 Ventricular tachycardia I47.2 Hyperkalemia E87.5 Elevated bilirubin R17 Diabetes mellitus type 2 in obese E11.69; E66.9 Acute kidney injury superimposed on CKD N17.9; N18.9 Gout M10.9 AICD (automatic cardioverter/defibrillator) present Z95.810 Morbid obesity E66.01
[2022-07-12] MEDS: ATORVASTATIN 40 MG TAB PO SCH (20:16)
[2022-07-13] MEDS: carvediloL 12.5 MG TAB PO SCH ×2 (08:21→20:31)
[2022-07-13 08:22] LABS: Basophils # (auto) 0.08 K/uL (0-0.2); Basophils % (auto) 0.8 %; Eosinophils # (auto) 0.37 K/uL (0-0.50); Eosinophils % (auto) 3.9 %; Hematocrit (blood only) 37.4 % (40.1-51.0); Hemoglobin 12.4 g/dl (14.0-18.0); Immature Granulocytes # (auto) 0.06 K/uL (0.00-0.02); Immature Granulocytes % (auto) 0.6 %; Lymphocytes # (auto) 0.81 K/uL (1.2-3.4); Lymphocytes % (auto) 8.5 %; Mean Corpuscular Hemoglobin 30.2 pg (25.0-34.0); Mean Corpuscular Hgb Conc 33.2 g/dL (32.0-36.0); Mean Corpuscular Volume 91.2 fL (80.0-100.0); Mean Platelet Volume 9.8 fL (9.4-12.4); Monocytes # (auto) 0.71 K/uL (0.24-0.82); Monocytes % (auto) 7.5 %; Neutrophils % (auto) 78.7 %; Platelet Count 281 K/uL (130-400); RDW Coefficient of Variation 17.6 % (11.5-14.5); RDW Standard Deviation 58.1 fL (36.4-46.3); White Blood Count 9.53 K/ul (4.8-10.8)
[2022-07-13] MEDS: OMEGA-3 (PURIFIED FISH OIL) 1 GM CAP PO SCH (08:22)
[2022-07-13] MEDS: CHOLECALCIFEROL 1,000 UNITS 25 MCG TAB PO SCH (08:22)
[2022-07-13] MEDS: allopurinoL 300 MG TAB PO SCH (08:22)
[2022-07-13] MEDS: ZINC SULFATE 220 MG CAPSULE PO SCH (08:22)
[2022-07-13] MEDS: allopurinoL 100 MG TAB PO SCH (08:23)
[2022-07-13] MEDS: MULTIVITAMIN TAB PO SCH (08:23)
[2022-07-13] MEDS: ASPIRIN 81 MG ECTAB PO SCH (08:23)
[2022-07-13] MEDS: INSULIN ASPART PER UNIT SC SCH ×4 (08:23→21:33)
[2022-07-13] MEDS: AMIODARONE 200 MG TAB PO SCH (08:23)
[2022-07-13] MEDS: FLUTICASONE/VILANTEROL 200/25MCG 14 PUFFS/INHALER INH SCH (08:24)
[2022-07-13] MEDS: guaiFENesin 600 MG TABCR PO PRN (08:24)
[2022-07-13] MEDS: ENOXAPARIN INJ 40 MG/0.4 ML SYR SQ SCH ×2 (08:24→20:31)
[2022-07-13 08:42] LABS: Albumin Level 3.7 gm/dl (3.4-5.0); Calcium 9.4 mg/dl (8.5-10.1); Est GFR (African American) 66.4 ml/min; Est GFR (Non-African American) 57.2 ml/min; Phosphorus 3.8 mg/dl (2.5-4.9); Potassium 3.4 mmol/L (3.5-5.1)
[2022-07-13] MEDS: ACETAMINOPHEN 500 MG TAB PO PRN (12:17)
[2022-07-13] MEDS ORDERED: POTASSIUM CHLORIDE CRTAB 20 MEQ TABCR PO STA (12:34)
--- NOTE | 2022-07-13 12:42 | Hospitalist Progress Note ---
Date of Service July 13, 2022 Assessment & Plan (1) Acute on chronic respiratory failure with hypoxia: Plan: Presented with acute on chronic respiratory failure with hypoxia and hypercarbia, secondary to acute on chronic HFrEF, RSV Patient recently admitted from 07/01-07/07/2022 for RSV, was dehydrated, and had his Bumex as well as Jardiance held on discharge Since that time patient has developed increasing pulmonary edema based on symptomatology and chest x-ray, increased peripheral edema The hypercarbic respiratory failure is secondary to ongoing respiratory distress at home with hypoxia Corrected overnight with BiPAP, now weaned to room air at rest after diuresis Diurese as able to-hypotension is limiting at times. Give IV lasix this AM and restart home aldactone 12.5mg daily replace KCl aldactone ad been held for hyperkalemia and acute kidney injury on admission but K now slightly low -Daily weights, strict I's and O's, low-sodium diet -Continue supplemental O2 as needed to keep pulse ox greater than 88% -Will need two-step walk test prior to discharge -Will inquire to see if he qualifies for home BiPAP as he prefers it to the CPAP-medical case worker working on this (2) CHF exacerbation: Plan: As above Follow BMP Echocardiogram with moderately reduced EF 35-40%, moderate global hypokinesis of left ventricle, left atrium severely dilated, severe MR, mild-moderate TR, RVSP elevated at greater than 60 mmHg, IVC mildly dilated Continue carvedilol, diuretics as able to He is not on an SHELLIE inhibitor or ARB or Entesto due to issues with hypotension -was on Jardiance but was stopped due to side effects -will restart spironolactone today -Has plans to see the advanced heart failure team at [place] in the next few weeks (3) Ventricular tachycardia: Plan: Apparently had sustained V. tach in the ambulance on the way here, was placed on amiodarone drip in the ER-continue for now and holding home p.o. amiodarone Is no longer on mexiletine due to side effects Appreciate cardiology consultation Pacer interrogation reveals V. fib treated on 07/07 while in the hospital last admission but patient does not remember this Keep electrolytes replete (4) Hyperkalemia: Plan: Potassium elevated at 6.5 on admission as he was taken off his Bumex but continued on his oral potassium chloride Held oral potassium chloride and home spironolactone but now restart spironolactone Potassium is now corrected and actually a bit low today Follow BMP (5) Elevated bilirubin: Plan: Bilirubin elevated at 2.6 which was actually improved from previous a few months ago Suspect hepatic congestion from heart failure as AST also mildly elevated (6) Diabetes mellitus type 2 in obese: Plan: Diabetes mellitus-hemoglobin A1c 5.8% in 05/2022-prediabetes No medications on current medication list from home Placed on Accu-Cheks with NovoLog coverage per scale (7) Acute kidney injury superimposed on CKD: Plan: Creatinine tenzin to 1.6 after IV diuretics but now improved to 1.3 Continue diuresis as remains volume overloaded Follow BMP (8) Gout: Plan: Continue home allopurinol No acute issues (9) AICD (automatic cardioverter/defibrillator) present: Plan: For history of V. tach and heart failure (10) Morbid obesity: Plan: Morbid obesity with BMI 44.7 Plan DVT prophylaxis- Lovenox Disposition-continued stay in PCU Admission and Anticipated Discharge Date Admission Date: July 10, 2022 Subjective Feels a little lightheaded at times especially with standing to urinate. Leg swelling improving. No CP or SOB. Is weaned off O2. [place] a small run of heart palpitations this AM. Tele with paced rhythm, normal rates, PVCs Review of Systems Review of Systems: All systems reviewed & are unremarkable except as noted in HPI & below feeling pain in left hand with edema where previous IV site infiltrated Physical Exam Constitutional: WD/WN, vitals as above Eyes: + anicteric sclerae Neck: trachea midline, no thyromegaly Respiratory: normal respiratory effort; no cough Auscultation: + diminished lung sounds (bases); no crackles and no wheezes Cardiovascular: Rate/Rhythm: regular rate and regular rhythm Heart Sounds: no murmur Extremities: + edema (1+ pitting edema legs bilat, improved;left hand edema) Chest (Breasts): Chest: normal inspection of chest Gastrointestinal (Abdomen): normal bowel sounds, soft, nontender, no hepatosplenomegaly Musculoskeletal: Extremities: no cyanosis and no clubbing Skin: no rashes, warm and dry Neurologic: moves all extremities and awake; no focal motor deficits Psychiatric: A+Ox3, euthymic affect Results & Data Results & Data ([facility]) Vital Signs (Past 12 Hours) Vital Signs Temp Pulse Pulse Resp BP BP Pulse Ox 07/13/22 11:32 36.7 C 81 18 91/66 L 96 07/13/22 08:00 80 07/13/22 08:00 07/13/22 07:22 80 18 104/63 90 07/13/22 03:30 20 96 07/13/22 03:05 36.2 C L 79 18 85/46 L 94 O2 Del Method O2 Flow Rate FiO2 07/13/22 11:32 Nasal Cannula 1 07/13/22 08:00 07/13/22 08:00 Room Air 07/13/22 07:22 Room Air 07/13/22 03:30 25 07/13/22 03:05 BiPAP Laboratory Results 07/13/22 07/13/22 07/13/22 Range/Units 07:46 07:46 07:46 WBC 9.53 (4.8-10.8) K/ul RBC 4.10 L (4.63-6.08) M/uL Hgb 12.4 L (14.0-18.0) g/dl Hct 37.4 L (40.1-51.0) % MCV 91.2 (80.0-100.0) fL MCH 30.2 (25.0-34.0) pg MCHC 33.2 (32.0-36.0) g/dL RDW Std Deviation 58.1 H (36.4-46.3) fL RDW Coeff of Kylee 17.6 H (11.5-14.5) % Plt Count 281 (130-400) K/uL MPV 9.8 (9.4-12.4) fL Immature Gran % (Auto) 0.6 % Neut % (Auto) 78.7 % Lymph % (Auto) 8.5 % [place] % (Auto) 7.5 % Eos % (Auto) 3.9 % Baso % (Auto) 0.8 % Neut # (Auto) 7.50 H (1.4-6.5) K/uL Lymph # (Auto) 0.81 L (1.2-3.4) K/uL [place] # (Auto) 0.71 (0.24-0.82) K/uL Eos # (Auto) 0.37 (0-0.50) K/uL Baso # (Auto) 0.08 (0-0.2) K/uL Immature Gran # (Auto) 0.06 H (0.00-0.02) K/uL Sodium 138 (136-145) mmol/L Potassium 3.4 L (3.5-5.1) mmol/L Chloride 101 (98-107) mmol/L Carbon Dioxide 30 (21-32) mmol/L Anion Gap 7 (3-11) BUN Pending Creatinine 1.37 (0.6-1.4) mg/dl Est Cr Clr Drug Dosing 83.0 ml/min Est GFR ( Amer) 66.4 ml/min Est GFR (Non-Af Amer) 57.2 ml/min BUN/Creatinine Ratio Pending Glucose 105 H (70-99(Fasting)) mg/dl POC Glucose (70-99) mg/dl Calcium 9.4 (8.5-10.1) mg/dl Phosphorus 3.8 (2.5-4.9) mg/dl Magnesium 2.0 (1.7-2.4) mg/dl B-Natriuretic Peptide 223 H (0-100) pg/ml Albumin 3.7 (3.4-5.0) gm/dl 07/13/22 07/12/22 07/12/22 Range/Units 07:21 20:50 16:29 WBC (4.8-10.8) K/ul RBC (4.63-6.08) M/uL Hgb (14.0-18.0) g/dl Hct (40.1-51.0) % MCV (80.0-100.0) fL MCH (25.0-34.0) pg MCHC (32.0-36.0) g/dL RDW Std Deviation (36.4-46.3) fL RDW Coeff of Kylee (11.5-14.5) % Plt Count (130-400) K/uL MPV (9.4-12.4) fL Immature Gran % (Auto) % Neut % (Auto) % Lymph % (Auto) % [place] % (Auto) % Eos % (Auto) % Baso % (Auto) % Neut # (Auto) (1.4-6.5) K/uL Lymph # (Auto) (1.2-3.4) K/uL [place] # (Auto) (0.24-0.82) K/uL Eos # (Auto) (0-0.50) K/uL Baso # (Auto) (0-0.2) K/uL Immature Gran # (Auto) (0.00-0.02) K/uL Sodium (136-145) mmol/L Potassium (3.5-5.1) mmol/L Chloride (98-107) mmol/L Carbon Dioxide (21-32) mmol/L Anion Gap (3-11) BUN Creatinine (0.6-1.4) mg/dl Est Cr Clr Drug Dosing ml/min Est GFR ( Amer) ml/min Est GFR (Non-Af Amer) ml/min BUN/Creatinine Ratio Glucose (70-99(Fasting)) mg/dl POC Glucose 113 H 148 H 126 H (70-99) mg/dl Calcium (8.5-10.1) mg/dl Phosphorus (2.5-4.9) mg/dl Magnesium (1.7-2.4) mg/dl B-Natriuretic Peptide (0-100) pg/ml Albumin (3.4-5.0) gm/dl PG Care Time/CCT Total # of Minutes Spent Total Time Spent with Patient: Total time spent is greater than 50% in coordination of care (as documented) at patient's floor/unit and/or counseling patient: Coding Level of Care Code 32304 SUB INP/OBS CARE 3/50MIN Diagnoses Acute on chronic respiratory failure with hypoxia J96.21 CHF exacerbation I50.9 Ventricular tachycardia I47.2 Hyperkalemia E87.5 Elevated bilirubin R17 Diabetes mellitus type 2 in obese E11.69; E66.9 Acute kidney injury superimposed on CKD N17.9; N18.9 Gout M10.9 AICD (automatic cardioverter/defibrillator) present Z95.810 Morbid obesity E66.01
[2022-07-13] MEDS ORDERED: FUROSEMIDE 40 MG/4 ML VIAL IV ONE (12:45)
[2022-07-13] MEDS: SPIRONOLACTONE 12.5 MG TAB PO SCH (13:12)
--- NOTE | 2022-07-13 17:37 | Cardiology Progress Note ---
Date of Service July 13, 2022 Assessment & Plan (1) CHF exacerbation: (2) Ventricular tachycardia: (3) AICD (automatic cardioverter/defibrillator) present: (4) Cardiomyopathy: Plan 1. Congestive heart failure: Improved. BNP mildly elevated. He is affecting and diuresis. Continue Lasix. Spironolactone re-initiated. Potassium supplementation required. 2. Cardiomyopathy: Intermediate in severity. Not on optimal medical therapy due to symptoms associated with hypotension. Tolerating carvedilol. Continue diuresis. Spironolactone re-initiated. 3. Ventricular fibrillation: Continue amiodarone. No arrhythmias noted on telemetry overnight. 4. Normally functioning dual-chamber ICD 5. Hyperkalemia: resolved Admission and Anticipated Discharge Date Admission Date: July 10, 2022 Subjective He had some dizziness today when bending over and standing up. He does some ambulation around the room. Overall breathing seems to be somewhat improved. He felt a few flutters as well earlier today. Review of Systems Review of Systems: Per HPI. Also some upper respiratory congestion with a runny nose and clogged ears Physical Exam Physical Exam: The patient is alert and oriented. Mood and affect appeared normal. He answered all questions appropriately. HEENT: Pupils are equal and reactive to light and accommodation. Extraocular movements are intact. The sclerae are anicteric. Neuro: Cranial nerves intact Lungs: Clear, Normal respiratory effort. Cardiac: Heart demonstrates a regular rate and rhythm. Normal S1 and S2. No murmurs on examination. Pulses: The patient has palpable radial pulses bilaterally that are equal in intensity. Left hand swollen vs right Extremities: There was no evidence of hypoperfusion. There is no cyanosis or clubbing. Legs in compression stockings Skin: I did not appreciate any rashes on examination today. Results & Data ([facility]) Vital Signs (Past 12 Hours) Vital Signs Temp Pulse Pulse Resp BP BP Pulse Ox 07/13/22 15:54 36.6 C 82 18 97/71 L 93 07/13/22 15:42 80 07/13/22 15:33 07/13/22 11:32 36.7 C 81 18 91/66 L 96 07/13/22 08:00 80 07/13/22 08:00 07/13/22 07:22 80 18 104/63 90 O2 Del Method O2 Flow Rate 07/13/22 15:54 Room Air 07/13/22 15:42 07/13/22 15:33 Nasal Cannula 2 07/13/22 11:32 Nasal Cannula 1 07/13/22 08:00 07/13/22 08:00 Room Air 07/13/22 07:22 Room Air Laboratory Results Abnormal Lab Results 07/12/22 07/13/22 07/13/22 20:50 07:21 07:46 WBC 9.53 RBC 4.10 L Hgb 12.4 L Hct 37.4 L MCV 91.2 MCH 30.2 MCHC 33.2 RDW Std Deviation 58.1 H RDW Coeff of Kylee 17.6 H Plt Count 281 MPV 9.8 Immature Gran % (Auto) 0.6 Neut % (Auto) 78.7 Lymph % (Auto) 8.5 [place] % (Auto) 7.5 Eos % (Auto) 3.9 Baso % (Auto) 0.8 Neut # (Auto) 7.50 H Lymph # (Auto) 0.81 L [place] # (Auto) 0.71 Eos # (Auto) 0.37 Baso # (Auto) 0.08 Immature Gran # (Auto) 0.06 H Sodium Potassium Chloride Carbon Dioxide Anion Gap BUN Creatinine Est Cr Clr Drug Dosing Est GFR ( Amer) Est GFR (Non-Af Amer) BUN/Creatinine Ratio Glucose POC Glucose 148 H 113 H Calcium Phosphorus Magnesium B-Natriuretic Peptide Albumin 07/13/22 07/13/22 07/13/22 07:46 07:46 11:31 WBC RBC Hgb Hct MCV MCH MCHC RDW Std Deviation RDW Coeff of Kylee Plt Count MPV Immature Gran % (Auto) Neut % (Auto) Lymph % (Auto) [place] % (Auto) Eos % (Auto) Baso % (Auto) Neut # (Auto) Lymph # (Auto) [place] # (Auto) Eos # (Auto) Baso # (Auto) Immature Gran # (Auto) Sodium 138 Potassium 3.4 L Chloride 101 Carbon Dioxide 30 Anion Gap 7 BUN 26 H Creatinine 1.37 Est Cr Clr Drug Dosing 83.0 Est GFR ( Amer) 66.4 Est GFR (Non-Af Amer) 57.2 BUN/Creatinine Ratio 19.0 Glucose 105 H POC Glucose 175 H Calcium 9.4 Phosphorus 3.8 Magnesium 2.0 B-Natriuretic Peptide 223 H Albumin 3.7 07/13/22 16:33 WBC RBC Hgb Hct MCV MCH MCHC RDW Std Deviation RDW Coeff of Kylee Plt Count MPV Immature Gran % (Auto) Neut % (Auto) Lymph % (Auto) [place] % (Auto) Eos % (Auto) Baso % (Auto) Neut # (Auto) Lymph # (Auto) [place] # (Auto) Eos # (Auto) Baso # (Auto) Immature Gran # (Auto) Sodium Potassium Chloride Carbon Dioxide Anion Gap BUN Creatinine Est Cr Clr Drug Dosing Est GFR ( Amer) Est GFR (Non-Af Amer) BUN/Creatinine Ratio Glucose POC Glucose 143 H Calcium Phosphorus Magnesium B-Natriuretic Peptide Albumin PG Care Time/CCT Total # of Minutes Spent Total Time Spent with Patient: Total time spent is greater than 50% in coordination of care (as documented) at patient's floor/unit and/or counseling patient: Coding Level of Care Code 74608 SUB INP/OBS CARE 2/35MIN Diagnoses CHF exacerbation I50.9 Ventricular tachycardia I47.2 AICD (automatic cardioverter/defibrillator) present Z95.810 Cardiomyopathy I42.9
[2022-07-13] MEDS: ATORVASTATIN 40 MG TAB PO SCH (20:30)
[2022-07-14] MEDS ORDERED: MELATONIN 3 MG TAB PO ONE (00:33)
[2022-07-14] MEDS: INSULIN ASPART PER UNIT SC SCH ×4 (08:09→21:07)
[2022-07-14] MEDS: ACETAMINOPHEN 500 MG TAB PO PRN (08:10)
[2022-07-14] MEDS: guaiFENesin 600 MG TABCR PO PRN (08:11)
[2022-07-14] MEDS: ZINC SULFATE 220 MG CAPSULE PO SCH (08:11)
[2022-07-14] MEDS: OMEGA-3 (PURIFIED FISH OIL) 1 GM CAP PO SCH (08:11)
[2022-07-14] MEDS: SPIRONOLACTONE 12.5 MG TAB PO SCH (08:11)
[2022-07-14] MEDS: allopurinoL 300 MG TAB PO SCH (08:11)
[2022-07-14] MEDS: CHOLECALCIFEROL 1,000 UNITS 25 MCG TAB PO SCH (08:11)
[2022-07-14] MEDS: allopurinoL 100 MG TAB PO SCH (08:13)
[2022-07-14] MEDS: FLUTICASONE/VILANTEROL 200/25MCG 14 PUFFS/INHALER INH SCH (08:13)
[2022-07-14] MEDS: MULTIVITAMIN TAB PO SCH (08:13)
[2022-07-14] MEDS: ENOXAPARIN INJ 40 MG/0.4 ML SYR SQ SCH ×2 (08:13→21:12)
[2022-07-14] MEDS: ASPIRIN 81 MG ECTAB PO SCH (08:13)
[2022-07-14] MEDS: carvediloL 12.5 MG TAB PO SCH ×2 (08:15→21:12)
[2022-07-14] MEDS: AMIODARONE 200 MG TAB PO SCH (08:15)
[2022-07-14 09:46] LABS: Base Excess ABG 3.5 mEq/L (-9-1.8); HCO3 ABG 28 mmol/L (19-24); Oxygen Saturation ABG 97.2 % (90-95); PCO2 ABG 40 mmHg (35-46); PO2 ABG 77 mmHg (80-95); pH ABG 7.45 (7.35-7.45)
[2022-07-14 09:48] LABS: Allen Test Pos (Pos)
[2022-07-14 09:50] LABS: Albumin Level 3.6 gm/dl (3.4-5.0); BUN Creatinine Ratio 17.6 (10-20); Bilirubin Direct 0.8 mg/dl (0-0.2); Bilirubin,Total 2.5 mg/dl (0.2-1.0); Calcium 9.4 mg/dl (8.5-10.1); Creatinine Clr Calc Pharmacy 86.5 ml/min; Est GFR (Non-African American) 60.4 ml/min; Potassium 3.8 mmol/L (3.5-5.1); Total Protein 6.8 gm/dl (6.0-8.3)
[2022-07-14] MEDS ORDERED: FUROSEMIDE 40 MG/4 ML VIAL IV ONE ×2 (10:15→16:00)
--- NOTE | 2022-07-14 15:54 | Hospitalist Progress Note ---
Date of Service July 14, 2022 Assessment & Plan (1) Acute on chronic respiratory failure with hypoxia: Plan: Presented with acute on chronic respiratory failure with hypoxia and hypercarbia, secondary to acute on chronic HFrEF, RSV Patient recently admitted from 07/01-07/07/2022 for RSV, was dehydrated, and had his Bumex as well as Jardiance held on discharge Since that time patient has developed increasing pulmonary edema based on symptomatology and chest x-ray, increased peripheral edema The hypercarbic respiratory failure is secondary to ongoing respiratory distress at home with hypoxia Corrected overnight with BiPAP, now weaned to room air at rest after diuresis Peripheral edema is now much improved, weight is down 3 kg, and net I's and O's are -4.6 L of fluid -Give Lasix 40 Mg IV twice daily today and reassess for further IV diuretics in the morning-May be able to return to home Bumex 2 mg p.o. twice daily tomorrow -Continue aldactone 12.5mg daily-aldactone initially held for hyperkalemia and acute kidney injury on admission -Daily weights, strict I's and O's, low-sodium diet -Continue supplemental O2 as needed to keep pulse ox greater than 88% -Will need two-step walk test prior to discharge as still intermittently requiring supplemental O2 -Case management checking to see if he qualifies for home BiPAP as he prefers it to the CPAP. -Overnight pulse oximetry reveals that he is hypoxic for greater than 5 minutes despite use of 2 L nasal cannula -We will schedule him a follow-up appointment with sleep medicine-nurse navigator arranging this Due to the patient's acute on chronic hypoxic respiratory failure, BiPAP the rapy was initiated and successful at stabilizing the patient's ventilatory needs and stabilizing O2 saturation. Recommend BiPAP therapy of IPAP 17 and EPAP 8 with 2 L oxygen bled in at home nightly. (2) CHF exacerbation: Plan: As above Echocardiogram with moderately reduced EF 35-40%, moderate global hypokinesis of left ventricle, left atrium severely dilated, severe MR, mild-moderate TR, RVSP elevated at greater than 60 mmHg, IVC mildly dilated Continue carvedilol, diuretics as able to He is not on an SHELLIE inhibitor or ARB or Entesto due to issues with hypotension -was on Jardiance but was stopped due to side effects -Continue spironolactone today -Has plans to see the advanced heart failure team at [place] in the next few weeks-appointment already scheduled -Referred to the CHF clinic at [facility]. Follow-up with cardiology as an outpatient (3) Ventricular tachycardia: Plan: Apparently had sustained V. tach in the ambulance on the way here, was placed on amiodarone drip in the ER-continue for now and holding home p.o. amiodarone Is no longer on mexiletine due to side effects Appreciate cardiology consultation Pacer interrogation reveals V. fib treated on 07/07 with ICD shock while in the hospital last admission but patient does not remember this No further V. tach or V. fib this admission Keep electrolytes replete ICD in place (4) Hyperkalemia: Plan: Potassium elevated at 6.5 on admission as he was taken off his Bumex but continued on his oral potassium chloride Held oral potassium chloride and home spironolactone but have since spironolactone Potassium is now corrected Follow BMP May not need oral potassium supplement on discharge (5) Elevated bilirubin: Plan: Bilirubin elevated at 2.6 which was actually improved from previous a few months ago Suspect hepatic congestion from heart failure as AST also mildly elevated LFTs fairly stable on repeat check (6) Diabetes mellitus type 2 in obese: Plan: Diabetes mellitus-hemoglobin A1c 5.8% in 05/2022-prediabetes No medications on current medication list from home Placed on Accu-Cheks with NovoLog coverage per scale (7) Acute kidney injury superimposed on CKD: Plan: Creatinine tenzin to 1.6 after IV diuretics but now improved to 1.3 and stable despite ongoing diuresis Continue diuresis as remains volume overloaded Follow BMP (8) Gout: Plan: Continue home allopurinol No acute issues (9) AICD (automatic cardioverter/defibrillator) present: Plan: For history of V. tach and heart failure (10) Morbid obesity: Plan: Morbid obesity with BMI 44.7 Needs weight loss Plan DVT prophylaxis- Lovenox Disposition-continued stay in PCU, but slowly improving. Possible discharge in the next 1 to 2 days. Will need a two-step walk test prior to discharge. Case management working on getting home BiPAP to replace his home CPAP. Patient is now interested in referral to [facility] for acute rehab. Consult PT/OT for evaluations Admission and Anticipated Discharge Date Admission Date: July 10, 2022 Subjective Patient continues to feel dizzy with standing and walking around the room. Feels like he needs to go to to rehab. Is tolerating the BiPAP very well. No chest pains or shortness of breath. Feels leg swelling is going down. Telemetry with normal sinus rhythm, first-degree AV block, IVCD, paced rhythm in the 80s Review of Systems Review of Systems: All systems reviewed & are unremarkable except as noted in HPI & below Physical Exam Constitutional: WD/WN, vitals as above Eyes: + anicteric sclerae Neck: trachea midline, no thyromegaly Respiratory: normal respiratory effort; no cough Auscultation: + diminished lung sounds (bases); no crackles and no wheezes Cardiovascular: Rate/Rhythm: regular rate and regular rhythm Heart Sounds: no murmur Extremities: + edema (Trace pitting edema legs bilat, improved;left hand edema improved) Chest (Breasts): Chest: normal inspection of chest Gastrointestinal (Abdomen): normal bowel sounds, soft, nontender, no hepatosplenomegaly Musculoskeletal: Extremities: no cyanosis and no clubbing Skin: no rashes, warm and dry Neurologic: moves all extremities and awake; no focal motor deficits Psychiatric: A+Ox3, euthymic affect Results & Data Results & Data ([facility]) Vital Signs (Past 12 Hours) Vital Signs Temp Pulse Pulse Resp BP Pulse Ox Pulse Ox 07/14/22 11:32 37.2 C 80 19 105/68 95 07/14/22 11:00 07/14/22 07:41 37.2 C 80 17 97/74 L 93 07/14/22 05:44 89 93 O2 Del Method O2 Del Method O2 Flow Rate O2 Flow Rate 07/14/22 11:32 BiPAP 07/14/22 11:00 Nasal Cannula 2 07/14/22 07:41 Nasal Cannula 2 07/14/22 05:44 Nasal Cannula 2 Laboratory Results 07/14/22 07/14/22 07/14/22 Range/Units 21:04 16:28 11:16 ABG pH (7.35-7.45) ABG pCO2 (35-46) mmHg ABG pO2 (80-95) mmHg ABG HCO3 (19-24) mmol/L ABG O2 Saturation (90-95) % ABG Base Excess (-9-1.8) mEq/L Bryce Test (Pos) Oxygen Given Sodium (136-145) mmol/L Potassium (3.5-5.1) mmol/L Chloride (98-107) mmol/L Carbon Dioxide (21-32) mmol/L Anion Gap (3-11) BUN (6-23) mg/dl Creatinine (0.6-1.4) mg/dl Est Cr Clr Drug Dosing ml/min Est GFR ( Amer) ml/min Est GFR (Non-Af Amer) ml/min BUN/Creatinine Ratio (10-20) Glucose (70-99(Fasting)) mg/dl POC Glucose 130 H 147 H 135 H (70-99) mg/dl Calcium (8.5-10.1) mg/dl Total Bilirubin (0.2-1.0) mg/dl Direct Bilirubin (0-0.2) mg/dl AST (13-39) U/L ALT (7-52) U/L Alkaline Phosphatase (34-104) U/L Total Protein (6.0-8.3) gm/dl Albumin (3.4-5.0) gm/dl 07/14/22 07/14/22 07/14/22 Range/Units 09:13 09:13 07:26 ABG pH 7.45 (7.35-7.45) ABG pCO2 40 (35-46) mmHg ABG pO2 77 L (80-95) mmHg ABG HCO3 28 H (19-24) mmol/L ABG O2 Saturation 97.2 H (90-95) % ABG Base Excess 3.5 H (-9-1.8) mEq/L Bryce Test Pos (Pos) Oxygen Given 2 L Sodium 136 (136-145) mmol/L Potassium 3.8 (3.5-5.1) mmol/L Chloride 102 (98-107) mmol/L Carbon Dioxide 27 (21-32) mmol/L Anion Gap 7 (3-11) BUN 23 (6-23) mg/dl Creatinine 1.31 (0.6-1.4) mg/dl Est Cr Clr Drug Dosing 86.5 ml/min Est GFR ( Amer) 70.0 ml/min Est GFR (Non-Af Amer) 60.4 ml/min BUN/Creatinine Ratio 17.6 (10-20) Glucose 155 H (70-99(Fasting)) mg/dl POC Glucose 123 H (70-99) mg/dl Calcium 9.4 (8.5-10.1) mg/dl Total Bilirubin 2.5 H (0.2-1.0) mg/dl Direct Bilirubin 0.8 H (0-0.2) mg/dl AST 68 H (13-39) U/L ALT 121 H (7-52) U/L Alkaline Phosphatase 69 (34-104) U/L Total Protein 6.8 (6.0-8.3) gm/dl Albumin 3.6 (3.4-5.0) gm/dl PG Care Time/CCT Total # of Minutes Spent Total Time Spent with Patient: Total time spent is greater than 50% in coordination of care (as documented) at patient's floor/unit and/or counseling patient: Coding Level of Care Code 32198 SUB INP/OBS CARE 3/50MIN Diagnoses Acute on chronic respiratory failure with hypoxia J96.21 CHF exacerbation I50.9 Ventricular tachycardia I47.2 Hyperkalemia E87.5 Elevated bilirubin R17 Diabetes mellitus type 2 in obese E11.69; E66.9 Acute kidney injury superimposed on CKD N17.9; N18.9 Gout M10.9 AICD (automatic cardioverter/defibrillator) present Z95.810 Morbid obesity E66.01
[2022-07-14] MEDS: ATORVASTATIN 40 MG TAB PO SCH (21:12)
--- NOTE | 2022-07-15 08:01 | XRay Report ---
XR chest 1V portable CLINICAL HISTORY: CHF TECHNIQUE: Single frontal radiograph of the chest was obtained. Comparison: Comparison is made to chest radiograph 07/10/2022 FINDINGS: Exam is limited by underpenetration. Dual lead pacemaker is seen. Cardiomegaly is noted. Prominence a nd cephalization of the vasculature is seen. No evidence of pleural effusion or pneumothorax. IMPRESSION: Cardiomegaly and mild pulmonary edema. This is more conspicuous than on prior exam. ACT 112: Negative or not required by law. Electronically signed by: Gregor Cardona M.D. 07/15/2022 7:59 AM
[2022-07-15] MEDS: carvediloL 12.5 MG TAB PO SCH ×2 (08:20→20:02)
[2022-07-15] MEDS: AMIODARONE 200 MG TAB PO SCH (08:20)
[2022-07-15] MEDS: ASPIRIN 81 MG ECTAB PO SCH (08:21)
[2022-07-15] MEDS: guaiFENesin 600 MG TABCR PO PRN (08:21)
[2022-07-15] MEDS: ZINC SULFATE 220 MG CAPSULE PO SCH (08:21)
[2022-07-15] MEDS: CHOLECALCIFEROL 1,000 UNITS 25 MCG TAB PO SCH (08:21)
[2022-07-15] MEDS: MULTIVITAMIN TAB PO SCH (08:21)
[2022-07-15] MEDS: OMEGA-3 (PURIFIED FISH OIL) 1 GM CAP PO SCH (08:21)
[2022-07-15] MEDS: FLUTICASONE/VILANTEROL 200/25MCG 14 PUFFS/INHALER INH SCH (08:21)
[2022-07-15] MEDS: allopurinoL 300 MG TAB PO SCH (08:22)
[2022-07-15] MEDS: ENOXAPARIN INJ 40 MG/0.4 ML SYR SQ SCH ×2 (08:22→20:02)
[2022-07-15] MEDS: SPIRONOLACTONE 12.5 MG TAB PO SCH (08:22)
[2022-07-15] MEDS: allopurinoL 100 MG TAB PO SCH (08:22)
[2022-07-15] MEDS: INSULIN ASPART PER UNIT SC SCH ×4 (08:31→21:35)
[2022-07-15 10:15] LABS: Calcium 8.8 mg/dl (8.5-10.1); Magnesium 1.9 mg/dl (1.7-2.4); Potassium 3.3 mmol/L (3.5-5.1)
[2022-07-15 10:21] LABS: BUN Creatinine Ratio 18.2 (10-20); Creatinine Clr Calc Pharmacy 85.7 ml/min; Est GFR (African American) 69.4 ml/min; Est GFR (Non-African American) 59.9 ml/min
--- NOTE | 2022-07-15 14:50 | Hospitalist Progress Note ---
Date of Service July 15, 2022 Assessment & Plan (1) Acute on chronic respiratory failure with hypoxia: Plan: Presented with acute on chronic respiratory failure with hypoxia and hypercarbia, secondary to acute on chronic HFrEF, RSV Patient recently admitted from 07/01-07/07/2022 for RSV, was dehydrated, and had his Bumex as well as Jardiance held on discharge Since that time patient has developed increasing pulmonary edema based on symptomatology and chest x-ray, increased peripheral edema The hypercarbic respiratory failure is secondary to ongoing respiratory distress at home with hypoxia Corrected overnight with BiPAP, now weaned to room air at rest after diuresis Peripheral edema is now much improved, weight is down , and net I's and O's are negative His usual home dose of oral Bumex has been restarted at 2 mg twice daily. He previously was on intravenous Lasix. Continue aldactone 12.5mg daily-aldactone initially held for hyperkalemia and acute kidney injury on admission Daily weights, strict I's and O's, low-sodium diet Continue supplemental O2 as needed to keep pulse ox greater than 88% Case management checking to see if he qualifies for home BiPAP as he prefers it to the CPAP. Due to the patient's acute on chronic hypoxic respiratory failure, BiPAP therapy was initiated and successful at stabilizing the patient's ventilatory needs and stabilizing O2 saturation. Recommend BiPAP therapy of IPAP 17 and EPAP 8 with 2 L oxygen bled in at home nightly. (2) CHF exacerbation: Plan: Acute on chronic systolic. Known ejection fraction of 35%. Continue carvedilol, diuretics He is not on an SHELLIE inhibitor or ARB or Entesto due to issues with hypotension He was on Jardiance but was stopped due to side effects Continue spironolactone Has plans to see the advanced heart failure team at [place] in the next few weeks-appointment already scheduled Referred to the CHF clinic at [facility]. Follow-up with cardiology as an outpatient (3) Ventricular tachycardia: Plan: Apparently had sustained V. tach in the ambulance on the way here, was placed on amiodarone drip in the ER. Now on p.o. amiodarone. Is no longer on mexiletine due to side effects. Appreciate cardiology consultation. Pacer interrogation reveals V. fib treated on 07/07 with ICD shock while in the hospital last admission but patient does not remember this. No further V. tach or V. fib this admission (4) Hyperkalemia: Plan: Potassium elevated at 6.5 on admission as he was taken off his Bumex but continued on his oral potassium chloride. Held oral potassium chloride and home spironolactone but have since spironolactone. Potassium is now corrected . Oral Bumex has been restarted. (5) Elevated bilirubin: Plan: Bilirubin elevated at 2.6 on admission which was actually improved from previous a few months ago Suspect hepatic congestion from heart failure. No intervention necessary at this time LFTs fairly stable on repeat check (6) Diabetes mellitus type 2 in obese: Plan: Diabetes mellitus-hemoglobin A1c 5.8% in 05/2022-prediabetes. No medications on current medication list from home. Continue Accu-Cheks with NovoLog coverage per scale (7) Acute kidney injury superimposed on CKD: Plan: Creatinine tenzin to 1.6 after IV diuretics but now improved and stable despite ongoing diuresis. Monitor intake and output. Serial labs (8) Gout: Plan: Continue home allopurinol. Stable (9) AICD (automatic cardioverter/defibrillator) present: Plan: For history of V. tach and heart failure (10) Morbid obesity: Plan: Morbid obesity with BMI 44.7. Needs weight loss Plan DVT prophylaxis- Lovenox Disposition-anticipate discharge to [facility] when arrangements are finalized. Case management working on getting home BiPAP to replace his home CPAP. Continue OT and PT Admission and Anticipated Discharge Date Admission Date: July 10, 2022 Subjective Alert and oriented. No complaints. Usual home dose of Bumex has been restarted orally. Repeat chest x-ray today, July 15, looks about the same. Appreciate cardiology input. Continue OT and PT Review of Systems Review of Systems: Constitutional-no fever or chills ENT-no blurred vision, no double vision, no epistaxis, no sore throat Respiratory-no cough, no wheezing at rest. He does develop shortness of breath with exertion Cardiac-no palpitations, no chest pain, no syncope GI-no nausea, vomiting, diarrhea, melena, hematochezia -no urinary retention, no urinary incontinence, no dysuria, no hematuria Musculoskeletal-no joint pain, no muscle tenderness Skin-no bruising, no rashes, no pruritus Neuro-no isolated weakness, no paresthesia, no weakness Psych-no depression, no anxiety Physical Exam Physical Exam: General-alert and oriented x3, no fevers, no chills HEENT-head atraumatic and normocephalic, pupils equal and reactive to light, extraocular muscles intact Neck-no lymphadenopathy or thyromegaly, trachea midline Chest-diminished breath sounds bilaterally. No audible rales, wheezing or rhonchi Cardiac-regular rate and rhythm, normal S1 and S2 Abdomen-normal bowel sounds, nontender, no hepatosplenomegaly Extremities-no cyanosis, clubbing, or edema Neuro-cranial nerves II through XII intact, motor and sensory function within normal limits, strength symmetrical , no focal deficits Psych-normal affect, normal mood Results & Data Results & Data ([facility]) Vital Signs (Past 12 Hours) Vital Signs Temp Pulse Pulse Resp BP Pulse Ox Pulse Ox 07/15/22 11:40 95 07/15/22 11:17 37.0 C 80 20 95/68 L 96 07/15/22 08:00 07/15/22 07:51 79 07/15/22 07:49 37.0 C 80 18 101/75 95 07/15/22 03:49 36.9 C 80 18 100/77 97 07/15/22 03:35 80 07/15/22 03:18 20 97 Pulse Ox Pulse Ox O2 Del Method O2 Flow Rate O2 Flow Rate O2 Flow Rate O2 Flow Rate 07/15/22 11:40 96 81 L 2 2 0 07/15/22 11:17 Nasal Cannula 2 07/15/22 08:00 Nasal Cannula 2 07/15/22 07:51 07/15/22 07:49 Nasal Cannula 2 07/15/22 03:49 CPAP 07/15/22 03:35 07/15/22 03:18 FiO2 07/15/22 11:40 07/15/22 11:17 07/15/22 08:00 07/15/22 07:51 07/15/22 07:49 07/15/22 03:49 07/15/22 03:35 07/15/22 03:18 25 Laboratory Results 07/13/22 07:46 07/15/22 06:09 PG Care Time/CCT Total # of Minutes Spent Total Time Spent with Patient: Total time spent is greater than 50% in coordination of care (as documented) at patient's floor/unit and/or counseling patient: Coding Level of Care Code 69960 SUB INP/OBS CARE 350MIN Diagnoses Acute on chronic respiratory failure with hypoxia J96.21 CHF exacerbation I50.9 Ventricular tachycardia I47.2 Hyperkalemia E87.5 Elevated bilirubin R17 Diabetes mellitus type 2 in obese E11.69; E66.9 Acute kidney injury superimposed on CKD N17.9; N18.9 Gout M10.9 AICD (automatic cardioverter/defibrillator) present Z95.810 Morbid obesity E66.01
[2022-07-15] MEDS ORDERED: BUMETANIDE 1 MG TAB PO ONE (15:00)
--- NOTE | 2022-07-15 17:05 | Cardiology Progress Note ---
Date of Service July 15, 2022 Assessment & Plan (1) CHF exacerbation: (2) Ventricular tachycardia: (3) AICD (automatic cardioverter/defibrillator) present: (4) Cardiomyopathy: Plan 1. Congestive heart failure: Symptomatic we improved. Lung examination benign. Edema seems to be improving as well. Switch to oral bumetanide today. Will continue to monitor his renal function and response to diuresis. 2. Cardiomyopathy: Intermediate in severity. Not on optimal medical therapy due to symptoms associated with hypotension. Continue current dose of carvedilol, spironolactone and diuretic. 3. Ventricular fibrillation: Continue amiodarone. No arrhythmias noted on telemetry. 4. Normally functioning dual-chamber ICD 5. Hyperkalemia: resolved Admission and Anticipated Discharge Date Admission Date: July 10, 2022 Subjective This afternoon the patient claimed he feeling well. He believes the swelling in his legs has improved. Still has an element of dizziness with ambulation at times. Was ambulatory around the good last night but still feels somewhat weak. Review of Systems Review of Systems: Per HPI Physical Exam Physical Exam: The patient is alert and oriented. Mood and affect appeared normal. He answered all questions appropriately. HEENT: Pupils are equal and reactive to light and accommodation. Extraocular movements are intact. The sclerae are anicteric. Neuro: Cranial nerves intact Lungs: Clear, Normal respiratory effort. Cardiac: Heart demonstrates a regular rate and rhythm. Normal S1 and S2. No murmurs on examination. Pulses: The patient has palpable radial pulses bilaterally that are equal in intensity. Left hand swollen vs right Extremities: There was no evidence of hypoperfusion. There is no cyanosis or clubbing. Legs in compression stockings Skin: I did not appreciate any rashes on examination today. Results & Data ([facility]) Vital Signs (Past 12 Hours) Vital Signs Temp Pulse Pulse Resp BP Pulse Ox Pulse Ox 07/15/22 15:47 36.9 C 81 18 99/74 L 97 07/15/22 15:35 80 07/15/22 11:40 95 07/15/22 11:17 37.0 C 80 20 95/68 L 96 07/15/22 08:00 07/15/22 07:51 79 07/15/22 07:49 37.0 C 80 18 101/75 95 Pulse Ox Pulse Ox O2 Del Method O2 Flow Rate O2 Flow Rate O2 Flow Rate O2 Flow Rate 07/15/22 15:47 Nasal Cannula 2 07/15/22 15:35 07/15/22 11:40 96 81 L 2 2 0 07/15/22 11:17 Nasal Cannula 2 07/15/22 08:00 Nasal Cannula 2 07/15/22 07:51 07/15/22 07:49 Nasal Cannula 2 Laboratory Results Abnormal Lab Results 07/14/22 07/15/22 07/15/22 21:04 06:09 07:20 Sodium 140 Potassium 3.3 L Chloride 102 Carbon Dioxide 28 Anion Gap 10 BUN 24 H Creatinine 1.32 Est Cr Clr Drug Dosing 85.7 Est GFR ( Amer) 69.4 Est GFR (Non-Af Amer) 59.9 BUN/Creatinine Ratio 18.2 Glucose 97 POC Glucose 130 H 109 H Calcium 8.8 Magnesium 1.9 07/15/22 07/15/22 11:15 16:32 Sodium Potassium Chloride Carbon Dioxide Anion Gap BUN Creatinine Est Cr Clr Drug Dosing Est GFR ( Amer) Est GFR (Non-Af Amer) BUN/Creatinine Ratio Glucose POC Glucose 168 H 147 H Calcium Magnesium PG Care Time/CCT Total # of Minutes Spent Total Time Spent with Patient: Total time spent is greater than 50% in coordination of care (as documented) at patient's floor/unit and/or counseling patient: Coding Level of Care Code 75759 SUB INP/OBS CARE 2/35MIN Diagnoses CHF exacerbation I50.9 Ventricular tachycardia I47.2 AICD (automatic cardioverter/defibrillator) present Z95.810 Cardiomyopathy I42.9
[2022-07-15] MEDS: ATORVASTATIN 40 MG TAB PO SCH (20:02)
[2022-07-15] MEDS: BUMETANIDE 1 MG TAB PO SCH (22:00)
[2022-07-15] MEDS: ACETAMINOPHEN 500 MG TAB PO PRN (22:11)
[2022-07-15] MEDS ORDERED: FAMOTIDINE 40 MG TABLET PO ONE (22:16)
[2022-07-16] MEDS: INSULIN ASPART PER UNIT SC SCH ×4 (08:01→20:15)
[2022-07-16] MEDS: ASPIRIN 81 MG ECTAB PO SCH (08:01)
[2022-07-16] MEDS: AMIODARONE 200 MG TAB PO SCH (08:01)
[2022-07-16] MEDS: CHOLECALCIFEROL 1,000 UNITS 25 MCG TAB PO SCH (08:01)
[2022-07-16] MEDS: allopurinoL 100 MG TAB PO SCH (08:01)
[2022-07-16] MEDS: ZINC SULFATE 220 MG CAPSULE PO SCH (08:01)
[2022-07-16] MEDS: ENOXAPARIN INJ 40 MG/0.4 ML SYR SQ SCH ×2 (08:01→20:21)
[2022-07-16] MEDS: MULTIVITAMIN TAB PO SCH (08:01)
[2022-07-16] MEDS: carvediloL 12.5 MG TAB PO SCH ×2 (08:01→20:20)
[2022-07-16] MEDS: FLUTICASONE/VILANTEROL 200/25MCG 14 PUFFS/INHALER INH SCH (08:02)
[2022-07-16] MEDS: allopurinoL 300 MG TAB PO SCH (08:02)
[2022-07-16] MEDS: OMEGA-3 (PURIFIED FISH OIL) 1 GM CAP PO SCH (08:02)
[2022-07-16] MEDS: BUMETANIDE 1 MG TAB PO SCH ×2 (08:02→15:20)
[2022-07-16] MEDS: SPIRONOLACTONE 12.5 MG TAB PO SCH (08:02)
--- NOTE | 2022-07-16 08:40 | Cardiology Progress Note ---
Date of Service July 16, 2022 Assessment & Plan (1) CHF exacerbation: (2) Ventricular tachycardia: (3) AICD (automatic cardioverter/defibrillator) present: (4) Cardiomyopathy: Plan 1. Congestive heart failure: Symptomatic we improved. Lung examination benign. Hemodynamically stable. This diuretic regimen was switched to oral bumetanide yesterday. Will monitor his output through the course of the day. Hopefully on his oral regimen he was still effective mild diuresis. I will review his renal function and potassium when it becomes available later today. Continue carvedilol and spironolactone. 2. Cardiomyopathy: Intermediate in severity. Not on optimal medical therapy due to symptoms associated with hypotension. Continue current dose of carvedilol, spironolactone and diuretic. 3. Ventricular fibrillation: Continue amiodarone. No arrhythmias noted on tele metry. Less pacing recently. 4. Normally functioning dual-chamber ICD 5. Hyperkalemia: resolved Overall he is improved. I think if his oral diuretic regimen is adequate in affecting some diuresis he can be discharged on this current medical regimen. I think from a cardiac standpoint he is approaching the ability to be discharged. Seemed to be some concern about his ambulatory capacity and hopefully he will be evaluated by physical therapy to day to see if rehab is warranted. Admission and Anticipated Discharge Date Admission Date: July 10, 2022 Subjective This morning he reported some improvement in his upper airway congestion. Still some congestion in his right ear. Reports some indigestion last evening. This appeared to have resolved with Pepcid. No recurrence. No similar symptoms in the past. Minimal ambulation this morning. He did not ambulate last evening either. Minimal dyspnea. Some residual lower extremity edema. Review of Systems Review of Systems: Per HPI Physical Exam Physical Exam: The patient is alert and oriented. Mood and affect appeared normal. He answered all questions appropriately. HEENT: Pupils are equal and reactive to light and accommodation. Extraocular movements are intact. The sclerae are anicteric. Neuro: Cranial nerves intact Lungs: Clear, Normal respiratory effort. Cardiac: Heart demonstrates a regular rate and rhythm. Normal S1 and S2. No murmurs on examination. Pulses: The patient has palpable radial pulses bilaterally that are equal in intensity. Left hand swollen vs right but improved Extremities: There was no evidence of hypoperfusion. There is no cyanosis or clubbing. Legs in compression stockings Skin: I did not appreciate any rashes on examination today. Results & Data ([facility]) Vital Signs (Past 12 Hours) Vital Signs Temp Pulse Pulse Resp BP Pulse Ox O2 Del Method 07/16/22 07:46 Nasal Cannula 07/16/22 07:33 36.7 C 82 22 101/69 92 Nasal Cannula 07/16/22 07:14 86 07/16/22 03:48 36.4 C L 82 18 94/68 L 92 BiPAP 07/16/22 02:11 80 16 98 07/16/22 00:07 80 18 96 07/15/22 23:37 82 07/15/22 23:10 36.8 C 80 20 104/66 94 Nasal Cannula O2 Flow Rate FiO2 07/16/22 07:46 2 07/16/22 07:33 2 07/16/22 07:14 07/16/22 03:48 07/16/22 02:11 25 07/16/22 00:07 25 07/15/22 23:37 07/15/22 23:10 2.0 Laboratory Results Abnormal Lab Results 07/15/22 07/15/22 07/15/22 06:09 11:15 16:32 Sodium 140 Potassium 3.3 L Chloride 102 Carbon Dioxide 28 Anion Gap 10 BUN 24 H Creatinine 1.32 Est Cr Clr Drug Dosing 85.7 Est GFR ( Amer) 69.4 Est GFR (Non-Af Amer) 59.9 BUN/Creatinine Ratio 18.2 Glucose 97 POC Glucose 168 H 147 H Calcium 8.8 Magnesium 1.9 07/15/22 07/16/22 21:23 07:36 Sodium Potassium Chloride Carbon Dioxide Anion Gap BUN Creatinine Est Cr Clr Drug Dosing Est GFR ( Amer) Est GFR (Non-Af Amer) BUN/Creatinine Ratio Glucose POC Glucose 139 H 121 H Calcium Magnesium PG Care Time/CCT Total # of Minutes Spent Total Time Spent with Patient: Total time spent is greater than 50% in coordination of care (as documented) at patient's floor/unit and/or counseling patient: Coding Level of Care Code 32837 SUB INP/OBS CARE 2/35MIN Diagnoses CHF exacerbation I50.9 Ventricular tachycardia I47.2 AICD (automatic cardioverter/defibrillator) present Z95.810 Cardiomyopathy I42.9
[2022-07-16 10:04] LABS: Anion Gap 11 (3-11); BUN Creatinine Ratio 20.2 (10-20); Blood Urea Nitrogen 25 mg/dl (6-23); Calcium 9.2 mg/dl (8.5-10.1); Carbon Dioxide 20 mmol/L (21-32); Chloride 105 mmol/L (98-107); Creatinine Clr Calc Pharmacy 91.4 ml/min; Est GFR (African American) 74.9 ml/min; Est GFR (Non-African American) 64.6 ml/min; Glucose 196 mg/dl (70-99(Fasting)); Sodium 136 mmol/L (136-145)
[2022-07-16] MEDS ORDERED: POTASSIUM CHLORIDE CRTAB 20 MEQ TABCR PO STA (14:27)
--- NOTE | 2022-07-16 14:37 | Hospitalist Progress Note ---
Date of Service July 16, 2022 Assessment & Plan (1) Acute on chronic respiratory failure with hypoxia: Plan: Presented with acute on chronic respiratory failure with hypoxia and hypercarbia, secondary to acute on chronic HFrEF, RSV. Patient recently admitted from 07/01-07/07/2022 for RSV, was dehydrated, and had his Bumex as well as Jardiance held on discharge. Since that time patient has developed increasing pulmonary edema based on symptomatology and chest x-ray, increased peripheral edema. The hypercarbic respiratory failure is secondary to ongoing respiratory distress at home with hypoxia. Corrected overnight with BiPAP, now weaned to room air at rest after diuresis. Peripheral edema is now much improved, weight is down , and net I's and O's are negative . His usual home dose of oral Bumex has been restarted at 2 mg twice daily. He previously was on intravenous Lasix. Continue aldactone 12.5mg daily-aldactone initially held for hyperkalemia and ac nehemias kidney injury on admission . Daily weights, strict I's and O's, low-sodium diet. Continue supplemental O2 as needed to keep pulse ox greater than 88%. Due to the patient's acute on chronic hypoxic respiratory failure, BiPAP therapy was initiated and successful at stabilizing the patient's ventilatory needs and stabilizing O2 saturation. Recommend BiPAP therapy of IPAP 17 and EPAP 8 . Two-step evaluation shows no need for home oxygen (2) CHF exacerbation: Plan: Acute on chronic systolic. Known ejection fraction of 35%. Continue carvedilol, diuretics. He is not on an SHELLIE inhibitor or ARB or Entesto due to issues with hypotension. Continue spironolactone . Has plans to see the advanced heart failure team at [place] in the next few weeks-appointment already scheduled. Referred to the CHF clinic at [facility]. Follow-up with cardiology as an outpatient (3) Ventricular tachycardia: Plan: Apparently had sustained V. tach in the ambulance on the way here, was placed on amiodarone drip in the ER. Now on p.o. amiodarone. Is no longer on mexiletine due to side effects. Appreciate cardiology consultation. Pacer interrogation reveals V. fib treated on 07/07 with ICD shock while in the hospital last admission but patient does not remember this. No further V. tach or V. fib this admission (4) Hyperkalemia: Plan: Potassium elevated at 6.5 on admission as he was taken off his Bumex but continued on his oral potassium chloride. Held oral potassium chloride and home spironolactone but have since spironolactone. Potassium is now corrected . Oral Bumex has been restarted. (5) Elevated bilirubin: Plan: Bilirubin elevated at 2.6 on admission which was actually improved from previous a few months ago. Suspect hepatic congestion from heart failure. No intervention necessary at this time. LFTs stable on repeat check (6) Diabetes mellitus type 2 in obese: Plan: hemoglobin A1c 5.8% in 05/2022 consistent with prediabetes. No medications on current list from home. Continue Accu-Cheks with NovoLog coverage per scale (7) Acute kidney injury superimposed on CKD: Plan: Creatinine tenzin to 1.6 after IV diuretics but now improved and stable despite ongoing diuresis. Monitor intake and output. Serial labs (8) Gout: Plan: Continue home allopurinol. Stable (9) AICD (automatic cardioverter/defibrillator) present: Plan: For history of V. tach and heart failure (10) Morbid obesity: Plan: Morbid obesity with BMI 44.7. Needs weight loss Plan DVT prophylaxis- Lovenox Disposition-hopeful discharge to home tomorrow, July 17 Admission and Anticipated Discharge Date Admission Date: July 10, 2022 Subjective Alert and oriented. No apparent distress. He has multiple reasons why he cannot go home today. Two-step oxygen evaluation was Pleated. He does not need home O2. Potassium replacement continues. His usual home Bumex dose was restarted yesterday, July 15. Review of Systems Review of Systems: Constitutional-no fever or chills ENT-no blurred vision, no double vision, no epistaxis, no sore throat Respiratory-no cough, no wheezing at rest. He does develop shortness of breath with exertion Cardiac-no palpitations, no chest pain, no syncope GI-no nausea, vomiting, diarrhea, melena, hematochezia -no urinary retention, no urinary incontinence, no dysuria, no hematuria Musculoskeletal-no joint pain, no muscle tenderness Skin-no bruising, no rashes, no pruritus Neuro-no isolated weakness, no paresthesia, no weakness Psych-no depression, no anxiety Physical Exam Physical Exam: General-alert and oriented x3, no fevers, no chills HEENT-head atraumatic and normocephalic, pupils equal and reactive to light, ex traocular muscles intact Neck-no lymphadenopathy or thyromegaly, trachea midline Chest-diminished breath sounds bilaterally. No audible rales, wheezing or rhonchi Cardiac-regular rate and rhythm, normal S1 and S2 Abdomen-normal bowel sounds, nontender, no hepatosplenomegaly Extremities-no cyanosis, clubbing, or edema Neuro-cranial nerves II through XII intact, motor and sensory function within no rmal limits, strength symmetrical , no focal deficits Psych-normal affect, normal mood Results & Data Results & Data ([facility]) Vital Signs (Past 12 Hours) Vital Signs Temp Pulse Pulse Pulse Pulse Pulse Resp 07/16/22 12:30 85 81 81 07/16/22 11:51 07/16/22 11:35 36.4 C L 83 20 07/16/22 07:46 07/16/22 07:33 36.7 C 82 22 07/16/22 07:14 86 07/16/22 03:48 36.4 C L 82 18 Resp Resp Resp BP Pulse Ox Pulse Ox Pulse Ox 07/16/22 12:30 22 20 18 93 93 07/16/22 11:51 92 07/16/22 11:35 106/68 91 07/16/22 07:46 07/16/22 07:33 101/69 92 07/16/22 07:14 07/16/22 03:48 94/68 L 92 Pulse Ox O2 Del Method O2 Flow Rate 07/16/22 12:30 90 07/16/22 11:51 07/16/22 11:35 Nasal Cannula 2 07/16/22 07:46 Nasal Cannula 2 07/16/22 07:33 Nasal Cannula 2 07/16/22 07:14 07/16/22 03:48 BiPAP Laboratory Results 07/13/22 07:46 07/16/22 11:59 PG Care Time/CCT Total # of Minutes Spent Total Time Spent with Patient: Total time spent is greater than 50% in coordination of care (as documented) at patient's floor/unit and/or counseling patient: Coding Level of Care Code 63621 SUB INP/OBS CARE 3/50MIN Diagnoses Acute on chronic respiratory failure with hypoxia J96.21 CHF exacerbation I50.9 Ventricular tachycardia I47.2 Hyperkalemia E87.5 Elevated bilirubin R17 Diabetes mellitus type 2 in obese E11.69; E66.9 Acute kidney injury superimposed on CKD N17.9; N18.9 Gout M10.9 AICD (automatic cardioverter/defibrillator) present Z95.810 Morbid obesity E66.01
[2022-07-16] MEDS: ATORVASTATIN 40 MG TAB PO SCH (20:20)
[2022-07-16] MEDS: guaiFENesin 600 MG TABCR PO PRN (20:21)
[2022-07-16] MEDS ORDERED: POTASSIUM CHLORIDE CRTAB 20 MEQ TABCR PO ONE (21:00)
[2022-07-17 07:51] LABS: Calcium 9.1 mg/dl (8.5-10.1); Potassium 3.6 mmol/L (3.5-5.1)
[2022-07-17 07:56] LABS: BUN Creatinine Ratio 20.5 (10-20); Est GFR (African American) 69.4 ml/min; Est GFR (Non-African American) 59.9 ml/min
[2022-07-17] MEDS: FLUTICASONE/VILANTEROL 200/25MCG 14 PUFFS/INHALER INH SCH (08:06)
[2022-07-17] MEDS: MULTIVITAMIN TAB PO SCH (08:07)
[2022-07-17] MEDS: ENOXAPARIN INJ 40 MG/0.4 ML SYR SQ SCH (08:07)
[2022-07-17] MEDS: allopurinoL 300 MG TAB PO SCH (08:07)
[2022-07-17] MEDS: CHOLECALCIFEROL 1,000 UNITS 25 MCG TAB PO SCH (08:07)
[2022-07-17] MEDS: ASPIRIN 81 MG ECTAB PO SCH (08:07)
[2022-07-17] MEDS: ZINC SULFATE 220 MG CAPSULE PO SCH (08:07)
[2022-07-17] MEDS: SPIRONOLACTONE 12.5 MG TAB PO SCH (08:07)
[2022-07-17] MEDS: OMEGA-3 (PURIFIED FISH OIL) 1 GM CAP PO SCH (08:07)
[2022-07-17] MEDS: BUMETANIDE 1 MG TAB PO SCH (08:08)
[2022-07-17] MEDS: allopurinoL 100 MG TAB PO SCH (08:08)
[2022-07-17] MEDS: guaiFENesin 600 MG TABCR PO PRN (08:08)
[2022-07-17] MEDS: INSULIN ASPART PER UNIT SC SCH (08:14)
[2022-07-17] MEDS: carvediloL 12.5 MG TAB PO SCH (08:47)
[2022-07-17] MEDS: AMIODARONE 200 MG TAB PO SCH (08:47)
--- NOTE | 2022-07-17 10:08 | Discharge Summary ---
Date of Service July 17, 2022 Admission HPI Per Admitting Provider The patient is a 57-year-old male with past medical history including acute respiratory failure due to RSV bronchiolitis, restrictive lung disease, amiodarone toxicity, diabetes mellitus type 2, dyslipidemia, hypotension, acute exacerbation of CHF, acute kidney injury, COTY, morbid obesity, HF PEF, ventricular tachycardia, AICD present, cardiomyopathy, hypertension, GI bleeding, UTI and ventricular fibrillation. He was most recently mated to [facility] from 07/01-07/07/2022 for respiratory failure due to RSV. At that time, he was also felt to be dehydrated, and his diuretics had been stopped. Since the time of discharge, the patient had become progressively more short of breath, and when presented to the ED was found to be in acute respiratory failure and placed on BiPAP. Chest x-ray showed CHF Abnormal laboratories: WBC 13.96, hemoglobin 13.8, hematocrit 43.0, sodium 134, potassium 6.5, creatinine 1.58 and glucose 154, total bilirubin 2.6 and AST 51. From the ED the patient received the following: Furosemide 40 mg IV, 50 mils of D50, regular insulin 10 units IV, sodium bicarb 100 mEq IV, amiodarone drip and calcium gluconate 1 g IV Principal Diagnosis Acute on chronic congestive heart failure, acute on chronic respiratory failure, ventricular tachycardia, RSV pneumonia, hyperkalemia, acute on chronic kidney disease Discharge Exam General-alert and oriented x3, no fevers, no chills HEENT-head atraumatic and normocephalic, pupils equal and reactive to light, extraocular muscles intact Neck-no lymphadenopathy or thyromegaly, trachea midline Chest-diminished breath sounds bilaterally. No audible rales, wheezing or rhonchi Cardiac-regular rate and rhythm, normal S1 and S2 Abdomen-normal bowel sounds, nontender, no hepatosplenomegaly Extremities-no cyanosis, clubbing, or edema Neuro-cranial nerves II through XII intact, motor and sensory function within normal limits, strength symmetrical , no focal deficits Psych-normal affect, normal mood Discharge Data Allergies Allergy/AdvReac Type Severity Reaction Status Date / Time mexiletine AdvReac Intermediate MADE ME Verified 07/10/22 19:49 SICK Consultations 07/10/22 19:53 ED Decision to Admit Stat 07/10/22 22:56 Consult Cardiology Routine Hospital Course (1) Acute on chronic respiratory failure with hypoxia: Presented with acute on chronic respiratory failure with hypoxia and hypercarbia, secondary to acute on chronic HFrEF, RSV. Patient recently admitted from 07/01-07/07/2022 for RSV, was dehydrated, and had his Bumex as well as Jardiance held on discharge. Since that time patient has developed increasing pulmonary edema based on symptomatology and chest x-ray, increased peripheral edema. The hypercarbic respiratory failure is secondary to ongoing respiratory distress at home with hypoxia. Corrected overnight with BiPAP, now weaned to room air at rest after diuresis. Peripheral edema is now much improved, weight is down , and net I's and O's are negative . His usual home dose of oral Bumex has been restarted at 2 mg twice daily. He previously was on intravenous Lasix. Continue aldactone 12.5mg daily-aldactone initially held for hyperkalemia and acute kidney injury on admission . Daily weights, strict I's and O's, low-sodium diet. He has been weaned off oxygen and is now on room air. He completed a two-step oxygen evaluation on July 16 and he does not need home oxygen (2) CHF exacerbation: Acute on chronic systolic. Known ejection fraction of 35%. Continue carvedilol, diuretics. He is not on an SHELLIE inhibitor or ARB or Entesto due to issues with hypotension. Continue spironolactone . Has plans to see the advanced heart failure team at [place] in the next few weeks-appointment already scheduled. Referred to the CHF clinic at [facility]. Follow-up with cardiology as an outpatient (3) Ventricular tachycardia: Apparently had sustained V. tach in the ambulance on the way here, was placed on amiodarone drip in the ER. Now on p.o. amiodarone. Is no longer on mexiletine due to side effects. Appreciate cardiology consultation. Pacer interrogation reveals V. fib treated on 07/07 with ICD shock while in the hospital last admission but patient does not remember this. No further V. tach or V. fib this admission (4) Hyperkalemia: Potassium elevated at 6.5 on admission as he was taken off his Bumex but continued on his oral potassium chloride. Held oral potassium chloride and home spironolactone but have since restarted spironolactone. Potassium is now corrected . Oral Bumex has also been restarted. (5) Elevated bilirubin: Bilirubin elevated at 2.6 on admission which was actually improved from previous a few months ago. Suspect hepatic congestion from heart failure. No intervention necessary at this time. LFTs stable on repeat check (6) Diabetes mellitus type 2 in obese: hemoglobin A1c 5.8% in 05/2022 consistent with prediabetes. No medications on current list from home. Continue Accu-Cheks with NovoLog coverage per scale (7) Acute kidney injury superimposed on CKD: Creatinine tenzin to 1.6 after IV diuretics but now improved and stable despite ongoing diuresis. Monitor intake and output. Serial labs (8) Gout: Continue home allopurinol. Stable (9) AICD (automatic cardioverter/defibrillator) present: For history of V. tach and heart failure (10) Morbid obesity: Morbid obesity with BMI 44.7. Needs weight loss Plan DVT prophylaxis- Lovenox Disposition-hopeful discharge to home today , July 17 Total Time Total Time Spent Total Time Spent (In Minutes): 35 minutes Discharge Plan Discharge Items Patient Disposition: Home - Home Health Services Reason For Visit: ACUTE ON CHRONIC RESPIRATORY FAILURE WITH HYPOXIA Discharge Diagnosis: Acute on chronic systolic congestive heart failure, ventricular tachycardia, acute on chronic respiratory failure, RSV pneumonia, hyperkalemia, acute on chronic kidney disease Activity: Resume your previous activity Non-emergency contact: Primary Care Provider and Torch Solderer Call non-emergency contact if: you have any medication questions and your symptoms worsen Follow-up/Referrals: Tamar Boss [Primary Care Provider] - Diet: Carb Consistent or DM2 and Heart Healthy Addtl Attending Provider Instructions: Follow-up with siding installer and primary care physician as directed. Home oxygen is not needed Pending Studies at Discharge: No Stand-Alone Forms: My [facility], Smoking Cessation Medications and DC Order Prescriptions: New carvedilol 12.5 mg Tablet 12.5 mg PO BID Qty: 60 0RF Continued (DME) CPAP Supplies Misc See Rx Instructions .MEDSUPPLY Qty: 1 0RF Rx Instructions: CPAP supplies. G47.33 (DME) Auto Titrating CPAP Misc See Rx Instructions .MEDSUPPLY Qty: 1 0RF Rx Instructions: Auto PAP with 10-20mm H20. Lifetime usage. G47.33 amiodarone 400 mg tablet 400 mg PO QAM Qty: 90 3RF spironolactone 25 mg tablet 12.5 mg PO DAILY Qty: 45 3RF carvedilol 6.25 mg tablet 12.5 mg PO BID Qty: 360 3RF cholecalciferol (vitamin D3) 50 mcg (2,000 unit) capsule 50 mcg PO DAILY guaifenesin [Mucinex] 600 mg tablet extended release 12hr 600 mg PO Q12H PRN (Reason: Congestion) acetaminophen 500 mg tablet 500 mg PO Q4H PRN (Reason: Fever Or Pain) omega-3 fatty acids 1,250 mg capsule 1,250 mg PO DAILY multivitamin Tablet 1 tab PO DAILY albuterol sulfate 90 mcg/actuation HFA aerosol inhaler 2 puff INHALATION Q4H PRN (Reason: Shortness Of Breath Or Wheezing) fluticasone furoate-vilanterol [Breo Ellipta] 200-25 mcg/dose blister with device 1 inh inhalation DAILY Qty: 60 0RF allopurinol 100 mg tablet 100 mg PO DAILY Rx Instructions: TOTAL DOSE 400 MG--TAKES WITH 300 MG TAB. bumetanide 2 mg tablet 2 mg PO BID Qty: 60 3RF Rx Instructions: ON HOLD TILL SEES CARDIO atorvastatin 80 mg tablet 80 mg PO HS metolazone 5 mg tablet 5 mg PO DAILY PRN (Reason: WT GAIN) Rx Instructions: take with Bumetanide allopurinol 300 mg tablet 300 mg PO DAILY Rx Instructions: TOTAL DOSE 400 MG-- TAKES WITH 100 MG TAB. fluocinonide 0.05 % cream 1 applic topical BID PRN (Reason: Skin Irritation) Rx Instructions: Apply to areas of the trunk and extremities twice daily x 2 weeks as needed for flaring. aspirin 81 mg Tablet,Delayed Release (Dr/Ec) 81 mg PO DAILY zinc acetate 25 mg (zinc) Capsule 0 mg PO DAILY Rx Instructions: PT UNSURE OF STRENGTH potassium chloride [Klor-Con M20] 20 mEq tablet,ER particles/crystals 40 meq PO BID Qty: 120 0RF (DME) blood-glucose meter [OneTouch Verio Meter] Misc See Rx Instructions .Route Qty: 1 0RF Rx Instructions: As directed (DME) OneTouch Verio test strips Strip See Rx Instructions .Route Qty: 100 0RF Rx Instructions: As directed once daily (DME) lancets [OneTouch Delica Lancets] 33 gauge misc See Rx Instructions .Route Qty: 100 0RF Rx Instructions: As directed once daily hydrocodone-homatropine [Hycodan] 5-1.5 mg/5 mL (5 mL) syrup 5 ml PO Q6H PRN (Reason: cough) Qty: 200 0RF Discharge Orders: Discharge Order- CHF (Routine); Ordered 07/17/22 Ordered By: Lenard Plascencia Admission Data Admit Date/Time: 07/10/22 21:08 Attending Provider: Lenard Plascencia Admit Provider: Fahad Prado Primary Care Provider: Tamar Boss Other Providers: Fahad Prado ; Ravindra Moran ; Frank Carver [facility] Coding Level of Care Code HOSP INP/OBS DISCH >30 MIN Diagnoses Acute on chronic respiratory failure with hypoxia J96.21 CHF exacerbation I50.9 Ventricular tachycardia I47.2 Hyperkalemia E87.5 Elevated bilirubin R17 Diabetes mellitus type 2 in obese E11.69; E66.9 Acute kidney injury superimposed on CKD N17.9; N18.9 Gout M10.9 AICD (automatic cardioverter/defibrillator) present Z95.810 Morbid obesity E66.01
--- NOTE | 2022-07-17 10:37 | Discharge Summary ---
Date of Service July 17, 2022 Admission HPI Per Admitting Provider The patient is a 57-year-old male with past medical history including acute respiratory failure due to RSV bronchiolitis, restrictive lung disease, amiodarone toxicity, diabetes mellitus type 2, dyslipidemia, hypotension, acute exacerbation of CHF, acute kidney injury, COTY, morbid obesity, HF PEF, ventricular tachycardia, AICD present, cardiomyopathy, hypertension, GI bleeding, UTI and ventricular fibrillation. He was most recently mated to [facility] from 07/01-07/07/2022 for respiratory failure due to RSV. At that time, he was also felt to be dehydrated, and his diuretics had been stopped. Since the time of discharge, the patient had become progressively more short of breath, and when presented to the ED was found to be in acute respiratory failure and placed on BiPAP. Chest x-ray showed CHF Abnormal laboratories: WBC 13.96, hemoglobin 13.8, hematocrit 43.0, sodium 134, potassium 6.5, creatinine 1.58 and glucose 154, total bilirubin 2.6 and AST 51. From the ED the patient received the following: Furosemide 40 mg IV, 50 mils of D50, regular insulin 10 units IV, sodium bicarb 100 mEq IV, amiodarone drip and calcium gluconate 1 g IV Principal Diagnosis Acute on chronic systolic congestive heart failure, acute on chronic respiratory failure, hyperkalemia, RSV pneumonia, ventricular tachycardia, acute on chronic kidney disease Discharge Data Allergies Allergy/AdvReac Type Severity Reaction Status Date / Time mexiletine AdvReac Intermediate MADE ME Verified 07/10/22 19:49 SICK Consultations 07/10/22 19:53 ED Decision to Admit Stat 07/10/22 22:56 Consult Cardiology Routine Total Time Total Time Spent Total Time Spent (In Minutes): 35 minutes Discharge Plan Discharge Items Patient Disposition: Home - Home Health Services Reason For Visit: ACUTE ON CHRONIC RESPIRATORY FAILURE WITH HYPOXIA Discharge Diagnosis: Acute on chronic systolic congestive heart failure, ventricular tachycardia, acute on chronic respiratory failure, RSV pneumonia, hyperkalemia, acute on chronic kidney disease Activity: Resume your previous activity Non-emergency contact: Primary Care Provider and Aviation Technician Aircraft Call non-emergency contact if: you have any medication questions and your symptoms worsen Follow-up/Referrals: Tamar Boss [Primary Care Provider] - (Information faxed to [facility] they will contact you with an appointment) Diet: Carb Consistent or DM2 and Heart Healthy Addtl Attending Provider Instructions: Follow-up with ethnographer and primary care physician as directed. Home oxygen is not needed Pending Studies at Discharge: No Stand-Alone [facility], Smoking Cessation Medications and DC Order Prescriptions: New carvedilol 12.5 mg Tablet 12.5 mg PO BID Qty: 60 0RF Continued (DME) CPAP Supplies Misc See Rx Instructions .MEDSUPPLY Qty: 1 0RF Rx Instructions: CPAP supplies. G47.33 (DME) Auto Titrating CPAP Misc See Rx Instructions .MEDSUPPLY Qty: 1 0RF Rx Instructions: Auto PAP with 10-20mm H20. Lifetime usage. G47.33 amiodarone 400 mg tablet 400 mg PO QAM Qty: 90 3RF spironolactone 25 mg tablet 12.5 mg PO DAILY Qty: 45 3RF carvedilol 6.25 mg tablet 12.5 mg PO BID Qty: 360 3RF cholecalciferol (vitamin D3) 50 mcg (2,000 unit) capsule 50 mcg PO DAILY guaifenesin [Mucinex] 600 mg tablet extended release 12hr 600 mg PO Q12H PRN (Reason: Congestion) acetaminophen 500 mg tablet 500 mg PO Q4H PRN (Reason: Fever Or Pain) omega-3 fatty acids 1,250 mg capsule 1,250 mg PO DAILY multivitamin Tablet 1 tab PO DAILY albuterol sulfate 90 mcg/actuation HFA aerosol inhaler 2 puff INHALATION Q4H PRN (Reason: Shortness Of Breath Or Wheezing) fluticasone furoate-vilanterol [Breo Ellipta] 200-25 mcg/dose blister with device 1 inh inhalation DAILY Qty: 60 0RF allopurinol 100 mg tablet 100 mg PO DAILY Rx Instructions: TOTAL DOSE 400 MG--TAKES WITH 300 MG TAB. bumetanide 2 mg tablet 2 mg PO BID Qty: 60 3RF Rx Instructions: ON HOLD TILL SEES CARDIO atorvastatin 80 mg tablet 80 mg PO HS metolazone 5 mg tablet 5 mg PO DAILY PRN (Reason: WT GAIN) Rx Instructions: take with Bumetanide allopurinol 300 mg tablet 300 mg PO DAILY Rx Instructions: TOTAL DOSE 400 MG-- TAKES WITH 100 MG TAB. fluocinonide 0.05 % cream 1 applic topical BID PRN (Reason: Skin Irritation) Rx Instructions: Apply to areas of the trunk and extremities twice daily x 2 weeks as needed for flaring. aspirin 81 mg Tablet,Delayed Release (Dr/Ec) 81 mg PO DAILY zinc acetate 25 mg (zinc) Capsule 0 mg PO DAILY Rx Instructions: PT UNSURE OF STRENGTH potassium chloride [Klor-Con M20] 20 mEq tablet,ER particles/crystals 40 meq PO BID Qty: 120 0RF (DME) blood-glucose meter [OneTouch Verio Meter] Misc See Rx Instructions .Route Qty: 1 0RF Rx Instructions: As directed (DME) OneTouch Verio test strips Strip See Rx Instructions .Route Qty: 100 0RF Rx Instructions: As directed once daily (DME) lancets [OneTouch Delica Lancets] 33 gauge misc See Rx Instructions .Route Qty: 100 0RF Rx Instructions: As directed once daily hydrocodone-homatropine [Hycodan] 5-1.5 mg/5 mL (5 mL) syrup 5 ml PO Q6H PRN (Reason: cough) Qty: 200 0RF Discharge Orders: Discharge Order- CHF (Routine); Ordered 07/17/22 Ordered By: Lenard Plascencia Admission Data Admit Date/Time: 07/10/22 21:08 Attending Provider: Lenard Plascencia Admit Provider: Fahad Prado Primary Care Provider: Tamar Boss Other Providers: Fahad Prado ; Ravindra Moran ; Frank Carver [facility] Other Interventions: Discharge Summary Assessment (RN) Last Done: 07/17/22 10:19 Coding
--- NOTE | 2022-07-17 10:47 | Discharge Summary ---
Date of Service July 17, 2022 Principal Diagnosis Acute on chronic systolic congestive heart failure, acute on chronic respiratory failure, ventricular tachycardia, RSV pneumonia, hyperkalemia, acute on chronic kidney disease Discharge Data Allergies Allergy/AdvReac Type Severity Reaction Status Date / Time mexiletine AdvReac Intermediate MADE ME Verified 07/10/22 19:49 SICK Consultations 07/10/22 19:53 ED Decision to Admit Stat 07/10/22 22:56 Consult Cardiology Routine Total Time Total Time Spent Total Time Spent (In Minutes): 35 minutes Discharge Plan Discharge Items Patient Disposition: Home - Home Health Services Reason For Visit: ACUTE ON CHRONIC RESPIRATORY FAILURE WITH HYPOXIA Discharge Diagnosis: Acute on chronic systolic congestive heart failure, ventricular tachycardia, acute on chronic respiratory failure, RSV pneumonia, hyperkalemia, acute on chronic kidney disease Activity: Resume your previous activity Non-emergency contact: Primary Care Provider and Software Educator Call non-emergency contact if: you have any medication questions and your symptoms worsen Follow-up/Referrals: Tamar Boss [Primary Care Provider] - (Information fax[facility] to [facility] they will contact you with an appointment) Diet: Carb Consistent or DM2 and Heart Healthy Addtl Attending Provider Instructions: Follow-up with surgical garment fitter and primary care physician as directed. Home oxygen is not needed Pending Studies at Discharge: No Stand-Alone Forms: My [facility] [employer], Smoking Cessation Medications and DC Order Prescriptions: Continued (DME) CPAP Supplies Misc See Rx Instructions .MEDSUPPLY Qty: 1 0RF Rx Instructions: CPAP supplies. G47.33 (DME) Auto Titrating CPAP Misc See Rx Instructions .MEDSUPPLY Qty: 1 0RF Rx Instructions: Auto PAP with 10-20mm H20. Lifetime usage. G47.33 amiodarone 400 mg tablet 400 mg PO QAM Qty: 90 3RF spironolactone 25 mg tablet 12.5 mg PO DAILY Qty: 45 3RF carvedilol 6.25 mg tablet 12.5 mg PO BID Qty: 360 3RF cholecalciferol (vitamin D3) 50 mcg (2,000 unit) capsule 50 mcg PO DAILY guaifenesin [Mucinex] 600 mg tablet extended release 12hr 600 mg PO Q12H PRN (Reason: Congestion) acetaminophen 500 mg tablet 500 mg PO Q4H PRN (Reason: Fever Or Pain) omega-3 fatty acids 1,250 mg capsule 1,250 mg PO DAILY multivitamin Tablet 1 tab PO DAILY albuterol sulfate 90 mcg/actuation HFA aerosol inhaler 2 puff INHALATION Q4H PRN (Reason: Shortness Of Breath Or Wheezing) fluticasone furoate-vilanterol [Breo Ellipta] 200-25 mcg/dose blister with device 1 inh inhalation DAILY Qty: 60 0RF allopurinol 100 mg tablet 100 mg PO DAILY Rx Instructions: TOTAL DOSE 400 MG--TAKES WITH 300 MG TAB. bumetanide 2 mg tablet 2 mg PO BID Qty: 60 3RF Rx Instructions: ON HOLD TILL SEES CARDIO atorvastatin 80 mg tablet 80 mg PO HS metolazone 5 mg tablet 5 mg PO DAILY PRN (Reason: WT GAIN) Rx Instructions: take with Bumetanide allopurinol 300 mg tablet 300 mg PO DAILY Rx Instructions: TOTAL DOSE 400 MG-- TAKES WITH 100 MG TAB. fluocinonide 0.05 % cream 1 applic topical BID PRN (Reason: Skin Irritation) Rx Instructions: Apply to areas of the trunk and extremities twice daily x 2 weeks as needed for flaring. aspirin 81 mg Tablet,Delayed Release (Dr/Ec) 81 mg PO DAILY zinc acetate 25 mg (zinc) Capsule 0 mg PO DAILY Rx Instructions: PT UNSURE OF STRENGTH potassium chloride [Klor-Con M20] 20 mEq tablet,ER particles/crystals 40 meq PO BID Qty: 120 0RF (DME) blood-glucose meter [OneTouch Verio Meter] [facility] [place] See Rx Instructions .Route Qty: 1 0RF Rx Instructions: As directed (DME) OneTouch Verio test strips Strip See Rx Instructions .Route Qty: 100 0RF Rx Instructions: As directed once daily (DME) lancets [OneTouch Delica Lancets] 33 [facility] See Rx Instructions .Route Qty: 100 0RF Rx Instructions: As directed once daily hydrocodone-homatropine [Hycodan] 5-1.5 mg/5 mL (5 mL) syrup 5 ml PO Q6H PRN (Reason: cough) Qty: 200 0RF Discharge Orders: Discharge Order- CHF (Routine); Ordered 07/17/22 Ordered By: Lenard Plascencia Admission Data Admit Date/Time: 07/10/22 21:08 Attending Provider: Lenard Plascencia Admit Provider: Fahad Prado Primary Care Provider: Tamar Boss Other Providers: Fahad Prado ; Ravindra Moran ; [facility] Other Interventions: Discharge Summary Assessment (RN) Last Done: 07/17/22 10:19 Coding Level of Care Code HOSP INP/OBS DISCH >30 MIN
--- NOTE | 2022-07-22 08:14 | Coding Query ---
CHRONIC KIDNEY DISEASE To promote full compliance with coding requirements relating to patient care, physician participation is requested in all cases of land reclamation specialist uncertainty. Please assist us with the question(s) below: Coding Question(s): The record reflects the following clinical findings: CKD documented without stage, superimposed acute kidney injury Please specify the known or suspected type by placing an "X" within the parenthesis (x). If other, please document type. Please document Staging if known: ( ) Stage I >90 Kidney damage with normal or elevated GFR. ( x) Stage II 60-89 Kidney damage with mildly decreased kidney function Stage III 30-59 Moderately decreased kidney function ( ) Stage IIIA 45-59 ( ) Stage IIIB 30-44 ( ) Stage III, unspecified ( ) Stage IV 15-29 Severely decreased kidney function ( ) Stage V <15 Renal failure (or dialysis) ( ) End Stage ( ) Unknown Thank you Estrella ROSALES
== END 2022-07-17 11:42 | disposition home health service (06) | DRG 291 ==
LOC: ED 19:12 → SUATTDRO 21:08 → 2E 21:08

== ENCOUNTER 2022-08-19 12:48 | Inpatient (IN) ==
[2022-08-19] MEDS ORDERED: ONDANSETRON INJ 2 MG/ML 2 ML VIAL ONE (13:15)
[2022-08-19] MEDS ORDERED: SODIUM CHLORIDE 0.9% 1000ML 500 ML IV ONE ×2 (13:21→15:04)
--- NOTE | 2022-08-19 13:44 | Emergency Department Note ---
Impression & Plan Hypotension, VERONA (acute kidney injury), Dizziness, Weakness, Anemia ED Provider Note NAME: MISSY PIERRE AGE: 57 SEX: M : 1965 ARRIVES VIA: Ambulance INFORMANT: [Patient][nursing, EMS] ED PROVIDER(S): [Blanco Boucher MD] CHIEF COMPLAINT: Cardiac assessment, hypotension HISTORY OF PRESENT ILLNESS: The patient is a 57-year-old male with a complicated cardiac history. He has had heart failure, he has a pacemaker and defibrillator. The patient states that he had respiratory issues over the last few months with COVID and RSV. For a while, he was off of his diuretics because of low blood pressure. The diuretics have been restarted and he has now also been on Entresto for around 2 weeks. 4 days ago, the patient had a low blood pressure reading and could not really complete his PT. He spoke with his doctors office and oral intake of fluids was suggested. Today, his blood pressure was 70 over palp. He was dizzy and could not complete his PT. He had nausea and a headache. He was referred to the ED. The patient did take an extra dose of Lasix yesterday because of some weight gain. He did take his normal daily medications this morning. There has been no fever, no increased cough, no increased shortness of breath. No chest pain. In route to the hospital, EMS administered 250 cc of IV saline. PMHx/PSHx: See Below SOCIAL HISTORY: See Below. PHYSICAL EXAM: GENERAL: Patient is in no acute distress. HEENT: No acute trauma, normocephalic atraumatic, mucous membranes moist, no nasal congestion. NECK: No stridor, no adenopathy, no meningismus, trachea is midline. LUNGS: Few scattered crackles heard primarily on the right, no wheezing, no respiratory distress HEART: Without murmurs gallops or rubs, regular rate and rhythm. Heart tones are distant ABDOMEN: Soft, nontender, bowel sounds positive, no peritonitis. EXTREMITIES: No cyanosis, moderate bilateral pedal edema, full range of motion of all the joints without pain or difficulty, no signs for acute trauma. NEUROLOGIC: Oriented x 3, no acute motor or sensory deficits, no focal weakness. SKIN: No rash, no jaundice, no diaphoresis. DIFFERENTIAL DIAGNOSIS: Dehydration, renal or liver failure, medication reaction, PR, CHF, anemia, infection, among others. EMERGENCY DEPARTMENT COURSE/PROCEDURES: Prior/Outside records reviewed: EMS records. ECG per my interpretation: Indication was weakness and hypotension. The ECG shows a ventricular pacemaker with a rate of 86. The QRS is quite wide. There is no worrisome ST elevation, no PVCs. The QTc is 679. Compared to an ECG from 12 July 2022, atrial pacing is no longer present, ventricular pacing is now present. Continuous Cardiac Monitoring per my interpretation: An order was placed for continuous cardiac monitoring. The monitor shows a rate of 80 with a ventricular pacemaker. Critical Care Note: I have personally spent 46 minutes of critical care time in the direct management of this patient. This includes bedside care, interpretation of diagnostic studies, and testing, discussion with consultants, patient, and family members, and other required patient management activities. This 46 minutes is in excess of all separately billable procedures. MEDICAL DECISION MAKING: There is no leukocytosis. The patient is anemic however, this is baseline looking back at previous testing. There is a normal platelet count. INR slightly elevated at 1.2. PTT is normal. Sodium was slightly low 134 but not in need of emergent correction. Creatinine was high at 2.17. This is consistent with some acute kidney injury and dehydration. Lactic acid level was not not elevated making severe sepsis less likely. Bilirubin was high at 2.9, this is a chronic issue for the patient. TSH was slightly high however, the T4 was normal. ECG showed a ventricular pacemaker, no obvious ischemia. Cardiac enzyme testing x1 was not consistent with acute cardiac injury. Chest film showed cardiomegaly per my review, no true CHF, no pneumonia. COVID test returned negative. On exam, the patient was hypotensive although, he was awake and interactive. The patient is likely hypotensive as a result of his medications. I suspect the medications coupled with overdiuresis and dehydration has led to his current state. He does typically run a lower blood pressure in the 90s to 100 systolic however, 70s to 80 systolic is too low for him. Patient received a 250 cc bolus of prior to arrival. He was given 2/500 cc boluses during his time here in the ED. Patient will need rehydration slowly with his CHF history. He received 4 mg of IV Zofran. I did speak with the patient and case management. Clearly, the patient requires a hospital stay. I spoke with the on-call hospitalist. Patient is currently resting comfortably, he has had some very mild improvement in his blood pressure thus far DISPOSITION: The patient's findings and presentation warrant a hospital stay. 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 Dyslipidemia Dyspnea Elevated bilirubin Former smoker Hemoptysis Hypnagogic jerks Hypoxia Metabolic syndrome Non-rheumatic mitral regurgitation Obesity, morbid, BMI 40.0-49.9 Obstructive sleep apnea of adult Prerenal azotemia Shortness of breath Systolic congestive heart failure Ventricular tachycardia (paroxysmal) Social History Smoking Status: Former smoker Tobacco Type: Cigarettes Second Hand Exposure: No; Hx Alcohol Use: Yes Alcohol type: other Hx Substance Use: No Preferred Language: Armenian Communication Ability: Effective Community Services Coordinator Required: No Beliefs That Will Affect Care: None Current Living Situation: Alone Current Living Situation Comment: From home alone 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 Feels Safe at Home: Yes Assistive Devices: None Allergies Allergies Allergy/AdvReac Type Severity Reaction Status Date / Time mexiletine AdvReac Intermediate MADE ME Verified 08/19/22 15:56 SICK Home Meds Home Medications Medication Instructions Recorded Confirmed omega-3 fatty acids 1,250 mg 1,250 mg PO DAILY 03/28/19 08/19/22 capsule multivitamin 1 tab PO DAILY 12/01/19 08/19/22 cholecalciferol (vitamin D3) 50 50 mcg PO DAILY 04/05/21 08/19/22 mcg (2,000 unit) capsule atorvastatin 80 mg tablet 80 mg PO HS 10/13/21 08/19/22 allopurinol 300 mg tablet 300 mg PO DAILY 12/27/21 08/19/22 metolazone 5 mg tablet 5 mg PO DAILY PRN WT GAIN 12/27/21 08/19/22 aspirin 81 mg tablet,delayed 81 mg PO QAM 04/07/22 08/19/22 release zinc acetate 25 mg (zinc) capsule 0 mg PO DAILY 04/07/22 08/19/22 albuterol sulfate 90 mcg/actuation 2 puff inhalation QID PRN 07/01/22 08/19/22 aerosol inhaler Shortness Of Breath Or Wheezing allopurinol 100 mg tablet 100 mg PO DAILY 07/10/22 08/19/22 amiodarone 400 mg tablet 400 mg PO QAM 08/19/22 08/19/22 sacubitril 24 mg-valsartan 26 mg 1 tab PO BID 08/19/22 08/19/22 tablet (Entresto) Previous Rx's Medication Instructions Recorded Auto Titrating CPAP #1 ea 03/16/20 CPAP Supplies #1 ea 03/16/20 bumetanide 2 mg tablet 2 mg PO BID #60 tabs 10/05/20 blood sugar diagnostic (OneTouch #100 ea 04/08/22 Verio test strips) blood-glucose meter (OneTouch #1 ea 04/08/22 Verio Meter) lancets 33 gauge (OneTouch Delica #100 ea 04/08/22 Lancets) potassium chloride 20 mEq 40 meq PO BID #120 tabs 04/08/22 tablet,extended release(part/cryst) (Klor-Con M) spironolactone 25 mg tablet 12.5 mg PO DAILY #45 tabs 05/16/22 hydrocodone-homatropine 5 mg-1.5 5 ml PO Q6H PRN cough #200 mL 06/29/22 mg/5 mL (5 mL) oral syrup (Hycodan) fluticasone furoate 200 1 inh inhalation DAILY #60 ea 07/07/22 mcg-vilanterol 25 mcg/dose inhalation powder (Breo Ellipta) carvedilol 6.25 mg tablet 12.5 mg PO BID #360 tabs 07/14/22 Results & Data (ED) Vital Signs Vital Signs - 24 hr 08/19/22 13:02 08/19/22 12:59 08/19/22 13:35 Temperature 36.8 C Temperature Source Oral Pulse Rate 88 90 Pulse Rate [Right Finger] Pulse Rate from SpO2 Sensor Pulse Rhythm [Right Finger] Pulse Strength [Right Finger] Respiratory Rate 14 Respiratory Effort / Characteristics Respiratory Depth Respiratory Pattern Blood Pressure 78/56 L Blood Pressure [Right Arm] Blood Pressure Mean 63 Blood Pressure Mean [Right Arm] Blood Pressure Position [Right Arm] Pulse Oximetry 95 Oxygen Delivery Method Room Air Room Air Sepsis Recent Fever Within 48 Hours No Sepsis New/Unexplained Change in Mental Status No Sepsis Action Taken by Nursing No Action Required 08/19/22 13:00 08/19/22 13:00 08/19/22 13:30 Temperature Temperature Source Pulse Rate 86 Pulse Rate [Right Finger] Pulse Rate from SpO2 Sensor 86 Pulse Rhythm [Right Finger] Pulse Strength [Right Finger] Respiratory Rate 20 Respiratory Effort / Characteristics Respiratory Depth Respiratory Pattern Blood Pressure 82/51 L 72/47 L Blood Pressure [Right Arm] Blood Pressure Mean 61 55 Blood Pressure Mean [Right Arm] Blood Pressure Position [Right Arm] Pulse Oximetry 95 Oxygen Delivery Method Room Air Sepsis Recent Fever Within 48 Hours Sepsis New/Unexplained Change in Mental Status Sepsis Action Taken by Nursing 08/19/22 13:30 08/19/22 14:00 08/19/22 14:00 Temperature Temperature Source Pulse Rate 80 81 Pulse Rate [Right Finger] Pulse Rate from SpO2 Sensor 82 Pulse Rhythm [Right Finger] Pulse Strength [Right Finger] Respiratory Rate 18 17 Respiratory Effort / Characteristics Respiratory Depth Respiratory Pattern Blood Pressure 79/54 L Blood Pressure [Right Arm] Blood Pressure Mean 62 Blood Pressure Mean [Right Arm] Blood Pressure Position [Right Arm] Pulse Oximetry 94 94 Oxygen Delivery Method Room Air Room Air Sepsis Recent Fever Within 48 Hours Sepsis New/Unexplained Change in Mental Status Sepsis Action Taken by Nursing 08/19/22 14:30 08/19/22 14:30 08/19/22 15:13 Temperature Temperature Source Pulse Rate 79 Pulse Rate [Right Finger] 84 Pulse Rate from SpO2 Sensor Pulse Rhythm [Right Finger] Regular Pulse Strength [Right Finger] Weak Respiratory Rate 18 21 Respiratory Effort / Characteristics Respiratory Depth Respiratory Pattern Blood Pressure 80/51 L Blood Pressure [Right Arm] 75/47 L Blood Pressure Mean 60 Blood Pressure Mean [Right Arm] 56 Blood Pressure Position [Right Arm] Pulse Oximetry 92 93 Oxygen Delivery Method Room Air Room Air Sepsis Recent Fever Within 48 Hours Sepsis New/Unexplained Change in Mental Status Sepsis Action Taken by Nursing 08/19/22 15:52 08/19/22 15:00 08/19/22 15:00 Temperature Temperature Source Pulse Rate 80 Pulse Rate [Right Finger] 80 Pulse Rate from SpO2 Sensor 78 Pulse Rhythm [Right Finger] Regular Pulse Strength [Right Finger] Weak Respiratory Rate 19 22 Respiratory Effort / Characteristics Non-Labored Spontaneous Respiratory Depth Normal Respiratory Pattern Regular Blood Pressure 59/40 L Blood Pressure [Right Arm] 71/46 L Blood Pressure Mean 46 Blood Pressure Mean [Right Arm] 54 Blood Pressure Position [Right Arm] Lying Pulse Oximetry 94 95 Oxygen Delivery Method Room Air Sepsis Recent Fever Within 48 Hours Sepsis New/Unexplained Change in Mental Status Sepsis Action Taken by Nursing 08/19/22 15:09 08/19/22 15:09 08/19/22 15:14 Temperature Temperature Source Pulse Rate 90 Pulse Rate [Right Finger] Pulse Rate from SpO2 Sensor 87 Pulse Rhythm [Right Finger] Pulse Strength [Right Finger] Respiratory Rate 30 H Respiratory Effort / Characteristics Respiratory Depth Respiratory Pattern Blood Pressure 67/37 L 75/47 L Blood Pressure [Right Arm] Blood Pressure Mean 47 56 Blood Pressure Mean [Right Arm] Blood Pressure Position [Right Arm] Pulse Oximetry 93 Oxygen Delivery Method Sepsis Recent Fever Within 48 Hours Sepsis New/Unexplained Change in Mental Status Sepsis Action Taken by Nursing 08/19/22 15:14 08/19/22 15:30 08/19/22 15:30 Temperature Temperature Source Pulse Rate 84 82 Pulse Rate [Right Finger] Pulse Rate from SpO2 Sensor 79 Pulse Rhythm [Right Finger] Pulse Strength [Right Finger] Respiratory Rate 20 22 Respiratory Effort / Characteristics Respiratory Depth Respiratory Pattern Blood Pressure 71/46 L Blood Pressure [Right Arm] Blood Pressure Mean 54 Blood Pressure Mean [Right Arm] Blood Pressure Position [Right Arm] Pulse Oximetry 93 Oxygen Delivery Method Sepsis Recent Fever Within 48 Hours Sepsis New/Unexplained Change in Mental Status Sepsis Action Taken by Nursing 08/19/22 15:41 08/19/22 15:41 08/19/22 15:42 Temperature Temperature Source Pulse Rate 80 80 Pulse Rate [Right Finger] Pulse Rate from SpO2 Sensor 79 Pulse Rhythm [Right Finger] Pulse Strength [Right Finger] Respiratory Rate 19 18 Respiratory Effort / Characteristics Respiratory Depth Respiratory Pattern Blood Pressure 63/46 L Blood Pressure [Right Arm] Blood Pressure Mean 51 Blood Pressure Mean [Right Arm] Blood Pressure Position [Right Arm] Pulse Oximetry 93 Oxygen Delivery Method Sepsis Recent Fever Within 48 Hours Sepsis New/Unexplained Change in Mental Status Sepsis Action Taken by Nursing 08/19/22 15:42 08/19/22 15:45 08/19/22 15:45 Temperature Temperature Source Pulse Rate 80 Pulse Rate [Right Finger] Pulse Rate from SpO2 Sensor 80 Pulse Rhythm [Right Finger] Pulse Strength [Right Finger] Respiratory Rate 15 Respiratory Effort / Characteristics Respiratory Depth Respiratory Pattern Blood Pressure 68/39 L 69/50 L Blood Pressure [Right Arm] Blood Pressure Mean 48 56 Blood Pressure Mean [Right Arm] Blood Pressure Position [Right Arm] Pulse Oximetry 94 Oxygen Delivery Method Sepsis Recent Fever Within 48 Hours Sepsis New/Unexplained Change in Mental Status Sepsis Action Taken by Nursing 08/19/22 17:06 08/19/22 17:48 Temperature Temperature Source Pulse Rate 85 Pulse Rate [Right Finger] 80 Pulse Rate from SpO2 Sensor Pulse Rhythm [Right Finger] Regular Pulse Strength [Right Finger] Normal Respiratory Rate 23 Respiratory Effort / Characteristics Non-Labored Spontaneous Respiratory Depth Normal Respiratory Pattern Blood Pressure Blood Pressure [Right Arm] 76/52 L Blood Pressure Mean Blood Pressure Mean [Right Arm] 60 Blood Pressure Position [Right Arm] Lying Pulse Oximetry 91 Oxygen Delivery Method Room Air Sepsis Recent Fever Within 48 Hours Sepsis New/Unexplained Change in Mental Status Sepsis Action Taken by Assisted Medications Current Medication List: was personally reviewed by me Laboratory Data Attestation: I reviewed the patient's lab results. 08/19/22 13:45 08/19/22 13:45 Lab Results 08/19/22 08/19/22 08/19/22 Range/Units 13:45 13:45 13:45 WBC 7.89 (4.8-10.8) K/ul RBC 3.75 L (4.70-6.10) M/uL Hgb 11.0 L (14.0-18.0) g/dl Hct 34.8 L (42.0-52.0) % MCV 92.8 (80.0-100.0) fL MCH 29.3 (25.0-34.0) pg MCHC 31.6 L (32.0-36.0) g/dL RDW Std Deviation 65.8 H (36.4-46.3) fL RDW Coeff of Kylee 19.9 H (11.5-14.5) % Plt Count 242 (130-400) K/uL MPV 10.3 (9.4-12.4) fL Immature Gran % (Auto) 0.5 % Neut % (Auto) 78.2 % Lymph % (Auto) 11.8 % [place] % (Auto) 7.9 % Eos % (Auto) 1.1 % Baso % (Auto) 0.5 % Neut # (Auto) 6.17 (1.40-6.50) K/uL Lymph # (Auto) 0.93 L (1.2-3.4) K/uL [place] # (Auto) 0.62 H (0.11-0.59) K/uL Eos # (Auto) 0.09 (0-0.50) K/uL Baso # (Auto) 0.04 (0-0.2) K/uL Immature Gran # (Auto) 0.04 (0.01-0.20) K/uL PT 12.7 H (9.0-12.0) Seconds INR 1.2 H (0.9-1.1) APTT 28.6 (21.0-31.0) Seconds PTT Ratio 1.0 Sodium 134 L (136-145) mmol/L Potassium 4.8 (3.5-5.1) mmol/L Chloride 101 (98-107) mmol/L Carbon Dioxide 28 (21-32) mmol/L Anion Gap 5 (3-11) BUN 83 H (6-23) mg/dl Creatinine 2.17 H (0.6-1.4) mg/dl Est Cr Clr Drug Dosing 53.5 ml/min Est GFR ( Amer) 38.1 ml/min Est GFR (Non-Af Amer) 32.8 ml/min BUN/Creatinine Ratio 38.2 H (10-20) Glucose 135 H (70-99(Fasting)) mg/dl Lactate (0.4-2.0) mmol/L Calcium 9.1 (8.5-10.1) mg/dl Magnesium 2.1 (1.7-2.4) mg/dl Total Bilirubin 2.9 H (0.2-1.0) mg/dl AST 18 (13-39) U/L ALT 14 (7-52) U/L Alkaline Phosphatase 60 (34-104) U/L Troponin I High Sens 16.6 (0-20) pg/ml Total Protein 6.5 (6.0-8.3) gm/dl Albumin 3.7 (3.4-5.0) gm/dl Globulin 2.8 (2.5-4.0) gm/dl Albumin/Globulin Ratio 1.3 (0.9-2) TSH (0.300-4.500) uIu/ml Free T4 (0.61-1.60) ng/dl SARS-CoV-2, RNA, NAAT (NEGATIVE) 08/19/22 08/19/22 08/19/22 Range/Units 13:45 13:45 16:31 WBC (4.8-10.8) K/ul RBC (4.70-6.10) M/uL Hgb (14.0-18.0) g/dl Hct (42.0-52.0) % MCV (80.0-100.0) fL MCH (25.0-34.0) pg MCHC (32.0-36.0) g/dL RDW Std Deviation (36.4-46.3) fL RDW Coeff of Kylee (11.5-14.5) % Plt Count (130-400) K/uL MPV (9.4-12.4) fL Immature Gran % (Auto) % Neut % (Auto) % Lymph % (Auto) % [place] % (Auto) % Eos % (Auto) % Baso % (Auto) % Neut # (Auto) (1.40-6.50) K/uL Lymph # (Auto) (1.2-3.4) K/uL [place] # (Auto) (0.11-0.59) K/uL Eos # (Auto) (0-0.50) K/uL Baso # (Auto) (0-0.2) K/uL Immature Gran # (Auto) (0.01-0.20) K/uL PT (9.0-12.0) Seconds INR (0.9-1.1) APTT (21.0-31.0) Seconds PTT Ratio Sodium (136-145) mmol/L Potassium (3.5-5.1) mmol/L Chloride (98-107) mmol/L Carbon Dioxide (21-32) mmol/L Anion Gap (3-11) BUN (6-23) mg/dl Creatinine (0.6-1.4) mg/dl Est Cr Clr Drug Dosing ml/min Est GFR ( Amer) ml/min Est GFR (Non-Af Amer) ml/min BUN/Creatinine Ratio (10-20) Glucose (70-99(Fasting)) mg/dl Lactate 1.5 (0.4-2.0) mmol/L Calcium (8.5-10.1) mg/dl Magnesium (1.7-2.4) mg/dl Total Bilirubin (0.2-1.0) mg/dl AST (13-39) U/L ALT (7-52) U/L Alkaline Phosphatase (34-104) U/L Troponin I High Sens (0-20) pg/ml Total Protein (6.0-8.3) gm/dl Albumin (3.4-5.0) gm/dl Globulin (2.5-4.0) gm/dl Albumin/Globulin Ratio (0.9-2) TSH 5.045 H (0.300-4.500) uIu/ml Free T4 1.23 (0.61-1.60) ng/dl SARS-CoV-2, RNA, NAAT NEGATIVE (NEGATIVE) Administered Medications Parenteral Electrolytes (Normosol-R) 1,000 mls @ 120 mls/hr IV .Q8H20M SANDHYA Stop: 08/19/22 21:09 Last Infusion: 08/19/22 17:59 Dose: 0 mls/hr Documented By: Admin: 08/19/22 16:52 Dose: 80 mls/hr Documented By: [employer] Parenteral Electrolytes (Normosol-R) 250 mls @ 999 mls/hr IV .Q16M ONE Stop: 08/19/22 18:12 Last Admin: 08/19/22 17:59 Dose: 999 mls/hr Documented By: [employer] Discontinued Medications Sodium Chloride (Nss 1000ml) 500 mls @ 999 mls/hr IV .Q31M ONE Stop: 08/19/22 13:51 Last Infusion: 08/19/22 13:54 Dose: 0 mls/hr Documented By: Admin: 08/19/22 13:23 Dose: 999 mls/hr Documented By: SHANELLE Sodium Chloride (Nss 1000ml) 500 mls @ 999 mls/hr IV .Q31M ONE Stop: 08/19/22 15:34 Last Infusion: 08/19/22 15:50 Dose: 0 mls/hr Documented By: [employer] Admin: 08/19/22 15:16 Dose: 999 mls/hr Documented By: [employer] Parenteral Electrolytes (Normosol-R) 250 mls @ 999 mls/hr IV .Q16M ONE Stop: 08/19/22 16:09 Last Infusion: 08/19/22 16:26 Dose: 0 mls/hr Documented By: Admin: 08/19/22 16:09 Dose: 999 mls/hr Documented By: GIL Ondansetron HCl (Ondansetron Inj 2 Mg/Ml 2 Ml Vial) Confirm Administered Dose 4 mg .ROUTE .STK-MED ONE Stop: 08/19/22 13:16 Last Admin: 08/19/22 13:16 Dose: 4 mg Documented By: SHANELLE Imaging Data Radiologist's Impression: Chest X-Ray 08/19/22 13:31 XR chest 1V portable CLINICAL HISTORY: weakness TECHNIQUE: Single frontal radiograph of the chest was obtained. Comparison: Comparison is made to chest radiograph 07/15/2022 FINDINGS: Pacemaker defibrillator is seen. Cardiomegaly is noted. The lungs are clear. No evidence of pleural effusion or pneumothorax. IMPRESSION: No acute chest disease. Cardiomegaly is noted. Previously noted pulmonary edema has resolved. ACT 112: Negative or not required by law. Electronically signed by: Gregor Cardona M.D. 08/19/2022 2:11 PM Discharge Plan Visit Data Chief Complaint: Cardiac Assessment ED Provider: Blanco Boucher Discharge Problem: Hypotension, VERONA (acute kidney injury), Dizziness, Weakness, Anemia Patient Disposition: Admitted As Inpatient Condition: Fair Forms Stand Alone Forms: [facility] Prescriptions Prescriptions: No Action (DME) CPAP Supplies Misc See Rx Instructions .MEDSUPPLY Qty: 1 0RF Rx Instructions: CPAP supplies. G47.33 (DME) Auto Titrating CPAP Misc See Rx Instructions .MEDSUPPLY Qty: 1 0RF Rx Instructions: Auto PAP with 10-20mm H20. Lifetime usage. G47.33 spironolactone 25 mg tablet 12.5 mg PO DAILY Qty: 45 3RF carvedilol 6.25 mg tablet 12.5 mg PO BID Qty: 360 3RF cholecalciferol (vitamin D3) 50 mcg (2,000 unit) capsule 50 mcg PO DAILY omega-3 fatty acids 1,250 mg capsule 1,250 mg PO DAILY multivitamin Tablet 1 tab PO DAILY albuterol sulfate 90 mcg/actuation HFA aerosol inhaler 2 puff INHALATION QID PRN (Reason: Shortness Of Breath Or Wheezing) fluticasone furoate-vilanterol [Breo Ellipta] 200-25 mcg/dose blister with device 1 inh inhalation DAILY Qty: 60 0RF allopurinol 100 mg tablet 100 mg PO DAILY Rx Instructions: TOTAL DOSE 400 MG--TAKES WITH 300 MG TAB. bumetanide 2 mg tablet 2 mg PO BID Qty: 60 3RF atorvastatin 80 mg tablet 80 mg PO HS metolazone 5 mg tablet 5 mg PO DAILY PRN (Reason: WT GAIN) Rx Instructions: take with Bumetanide allopurinol 300 mg tablet 300 mg PO DAILY Rx Instructions: TOTAL DOSE 400 MG-- TAKES WITH 100 MG TAB. aspirin 81 mg Tablet,Delayed Release (Dr/Ec) 81 mg PO QAM zinc acetate 25 mg (zinc) Capsule 0 mg PO DAILY Rx Instructions: PT UNSURE OF STRENGTH potassium chloride [Klor-Con M20] 20 mEq tablet,ER particles/crystals 40 meq PO BID Qty: 120 0RF (DME) blood-glucose meter [OneTouch Verio Meter] Misc See Rx Instructions .Route Qty: 1 0RF Rx Instructions: As directed (DME) OneTouch Verio test strips Strip See Rx Instructions .Route Qty: 100 0RF Rx Instructions: As directed once daily (DME) lancets [OneTouch Delica Lancets] 33 gauge misc See Rx Instructions .Route Qty: 100 0RF Rx Instructions: As directed once daily hydrocodone-homatropine [Hycodan] 5-1.5 mg/5 mL (5 mL) syrup 5 ml PO Q6H PRN (Reason: cough) Qty: 200 0RF Entresto 24-26 mg tablet 1 tab PO BID amiodarone 400 mg tablet 400 mg PO QAM Referrals Referrals: Tamar Boss [Primary Care Provider] -
--- NOTE | 2022-08-19 14:13 | XRay Report ---
XR chest 1V portable CLINICAL HISTORY: weakness TECHNIQUE: Single frontal radiograph of the chest was obtained. Comparison: Comparison is made to chest radiograph 07/15/2022 FINDINGS: Pacemaker defibrillator is seen. Cardiomegaly is noted. The lungs are clear. No evidence of pleural e ffusion or pneumothorax. IMPRESSION: No acute chest disease. Cardiomegaly is noted. Previously noted pulmonary edema has resolved. ACT 112: Negative or not required by law. Electronically signed by: Gregor Cardona M.D. 08/19/2022 2:11 PM
[2022-08-19 14:30] LABS: Basophils # (auto) 0.04 K/uL (0-0.2); Basophils % (auto) 0.5 %; Eosinophils # (auto) 0.09 K/uL (0-0.50); Eosinophils % (auto) 1.1 %; Hematocrit (blood only) 34.8 % (42.0-52.0); Immature Granulocytes # (auto) 0.04 K/uL (0.01-0.20); Immature Granulocytes % (auto) 0.5 %; Lymphocytes # (auto) 0.93 K/uL (1.2-3.4); Lymphocytes % (auto) 11.8 %; Mean Corpuscular Hemoglobin 29.3 pg (25.0-34.0); Mean Corpuscular Hgb Conc 31.6 g/dL (32.0-36.0); Mean Corpuscular Volume 92.8 fL (80.0-100.0); Mean Platelet Volume 10.3 fL (9.4-12.4); Monocytes # (auto) 0.62 K/uL (0.11-0.59); Monocytes % (auto) 7.9 %; Neutrophils # (auto) 6.17 K/uL (1.40-6.50); Neutrophils % (auto) 78.2 %; Platelet Count 242 K/uL (130-400); RDW Coefficient of Variation 19.9 % (11.5-14.5); RDW Standard Deviation 65.8 fL (36.4-46.3); Red Blood Count 3.75 M/uL (4.70-6.10); White Blood Count 7.89 K/ul (4.8-10.8)
[2022-08-19 14:46] LABS: Troponin I High Sensitivity 16.6 pg/ml (0-20)
[2022-08-19 14:51] LABS: Albumin Globulin Ratio 1.3 (0.9-2); Albumin Level 3.7 gm/dl (3.4-5.0); BUN Creatinine Ratio 38.2 (10-20); Bilirubin,Total 2.9 mg/dl (0.2-1.0); Calcium 9.1 mg/dl (8.5-10.1); Creatinine Clr Calc Pharmacy 53.5 ml/min; Est GFR (African American) 38.1 ml/min; Est GFR (Non-African American) 32.8 ml/min; Globulin 2.8 gm/dl (2.5-4.0); Magnesium 2.1 mg/dl (1.7-2.4); Potassium 4.8 mmol/L (3.5-5.1); Total Protein 6.5 gm/dl (6.0-8.3)
[2022-08-19 14:55] LABS: Thyroid Stimulating Hormone 5.045 uIu/ml (0.300-4.500)
[2022-08-19 14:59] LABS: INR 1.2 (0.9-1.1); Partial Thromboplastin Time 28.6 Seconds (21.0-31.0); Prothrombin Time 12.7 Seconds (9.0-12.0)
[2022-08-19 15:30] LABS: T4 Free Thyroxine 1.23 ng/dl (0.61-1.60)
--- NOTE | 2022-08-19 15:45 | History & Physical Report ---
Date of Service August 19, 2022 Assessment & Plan (1) Acute kidney injury superimposed on CKD: Plan: Lightheadedness, dizziness, hypotension In the setting of overdiuresis and multiple BP medications this morning Took spironolactone, carvedilol, Entresto, amiodarone, and Bumex this morning. He normally hold his antihypertensives if his pressure is low, forgot to check it in checked it right after taking his meds and was only systolic 80 Clinically volume depleted, with mild VERONA Received 1 L crystalloid in ER, additional 500 is pending Some improvement with fluids and Trendelenburg, however suboptimal. Suspect multifactorial in the setting of volume depletion and medication induced. Patient has recently been on Entresto only for 1 mo Lactate pending If lactate is normal and remains normal we will continue watching w antihypertensives washout % cautious fluids. If develops signs of congestion, continue fluids limited, or evidence of endorgan hypoperfusion/elevated lactate will transfer to ICU for temporary vasopressor. CHF - 07/11/2022 echo: EF 35-40%, LV severe dilation, LA severe dilation, severe mitral regurg, mild to moderate tricuspid regurg, RVSP elevated at 60, mildly dilated inferior vena cava at that time Likely volume depleted and took extra Lasix for concern of weight gain but with soft pressures, clinically appears volume contracted Gentle fluids given history of heart failure and severe cardiomegaly In addition patient took amiodarone, carvedilol, spironolactone, and Entresto this morning. Will hold antihypertensives for washout, will resume carvedilol first then Entresto if pressures tolerating VERONA on CKD Baseline creatinine appears around 1.32.0 Admitting creatinine 2.17, increased creatinine BUN ratio Clinically volume repleted, additional 250 bolus ordered Recurrent gentle boluses until tolerable MAP, cautious aggressive fluids in the setting of brittle CHF History ofVentricular fibrillation Follow on telemetry Optimize potassium, magnesium 4.0/2.[address] DM 2 Weight-based basal bolus DM diet Low-salt Glucose checks AC/at bedtime DVT prophylaxis: Heparin CODE STATUS: Full Disposition: PCU status in ICU Diet: Heart healthy, DM 2, low-salt (2) Diabetes mellitus type 2 in obese: (3) VERONA (acute kidney injury): (4) Systolic congestive heart failure: (5) HTN (hypertension): (6) Ventricular tachycardia: (7) Restrictive lung disease: History of Present Illness Primary Care Provider: Tamar Boss Lenard Mcdonnell is a 57-year-old male with a past medical history of V. tach, congestive heart failure, AICD, cardiomyopathy, DM 2, COTY, hypertension, and GI bleed who presents to the emergency department with hypotension and dizziness. Patient does have history of heart failure with pacer and AICD placement. Has had hypotension for in setting of diuretic use, these were restarted along with Entresto 2 weeks ago, for the last 4 days patient has had increased global weakness making it difficult to ambulate, low blood pressure, and dizziness. Blood pressure in the ER 70/47. No chest pain/chest pressure. No fever/chills/sweats. At bedside assessment he is not short of breath but is lightheaded and a little bit dizzy. He feels he is felt generally poor and weaker since this morning. Trendelenburg position does make him feel lightheaded and slightly short of breath. No nausea/vomiting/diarrhea/constipation. No leukocytosis Hemoglobin 11.0 Sodium 134 Potassium normal Creatinine baseline around 1.32.0, currently 2.17 on admission with ratio of 38 TSH is mildly elevated with normal free T4 COVID is negative CXR: No acute disease, cardiomegaly noted, resolution of prior pulmonary edema. No evidence of pleural effusion or current edema Admitting EKG: Ventricular paced rhythm. High-sensitivity troponin: 16.6 Received 1250cc NSS while in ER Medication review: - Took extra dose of lasix for slight weight gain yesterday Is currently taking carvedilol, spironolactone, Entresto, Bumex all of which she took this morning. Took his blood pressure slightly after and was systolic only in the 80s Medical History: Reviewed Medications: Reviewed Surgical History: Reviewed Allergies: Reviewed Social History:Reviewed Code Status:Full Allergies Allergy/AdvReac Type Severity Reaction Status Date / Time mexiletine AdvReac Intermediate MADE ME Verified 08/19/22 15:56 SICK Home Medications Medication Instructions Recorded Confirmed Type omega-3 fatty acids 1,250 mg 1,250 mg PO DAILY 03/28/19 08/19/22 History capsule multivitamin 1 tab PO DAILY 12/01/19 08/19/22 History Auto Titrating CPAP #1 ea 03/16/20 06/21/22 Rx CPAP Supplies #1 ea 03/16/20 06/21/22 Rx bumetanide 2 mg tablet 2 mg PO BID #60 tabs 10/05/20 08/19/22 Rx cholecalciferol (vitamin D3) 50 50 mcg PO DAILY 04/05/21 08/19/22 History mcg (2,000 unit) capsule atorvastatin 80 mg tablet 80 mg PO HS 10/13/21 08/19/22 History allopurinol 300 mg tablet 300 mg PO DAILY 12/27/21 08/19/22 History metolazone 5 mg tablet 5 mg PO DAILY PRN WT GAIN 12/27/21 08/19/22 History aspirin 81 mg tablet,delayed 81 mg PO QAM 04/07/22 08/19/22 History release zinc acetate 25 mg (zinc) capsule 0 mg PO DAILY 04/07/22 08/19/22 History blood sugar diagnostic (InterviewTouch #100 ea 04/08/22 05/26/22 Rx Verio test strips) blood-glucose meter (OneTouch #1 ea 04/08/22 05/26/22 Rx Verio Meter) lancets 33 gauge (OneTouch Delica #100 ea 04/08/22 05/26/22 Rx Lancets) potassium chloride 20 mEq 40 meq PO BID #120 tabs 04/08/22 08/19/22 Rx tablet,extended release(part/cryst) (Klor-Con M) spironolactone 25 mg tablet 12.5 mg PO DAILY #45 tabs 05/16/22 08/19/22 Rx hydrocodone-homatropine 5 mg-1.5 5 ml PO Q6H PRN cough #200 mL 06/29/22 08/19/22 Rx mg/5 mL (5 mL) oral syrup (Hycodan) albuterol sulfate 90 mcg/actuation 2 puff inhalation QID PRN 07/01/22 08/19/22 History aerosol inhaler Shortness Of Breath Or Wheezing fluticasone furoate 200 1 inh inhalation DAILY #60 ea 07/07/22 08/19/22 Rx mcg-vilanterol 25 mcg/dose inhalation powder (Breo Ellipta) allopurinol 100 mg tablet 100 mg PO DAILY 07/10/22 08/19/22 History carvedilol 6.25 mg tablet 12.5 mg PO BID #360 tabs 07/14/22 08/19/22 Rx amiodarone 400 mg tablet 400 mg PO QAM 08/19/22 08/19/22 History sacubitril 24 mg-valsartan 26 mg 1 tab PO BID 08/19/22 08/19/22 History tablet (Entresto) 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 Dyslipidemia Dyspnea Elevated bilirubin Former smoker Hemoptysis Hypnagogic jerks Hypoxia Metabolic syndrome Non-rheumatic mitral regurgitation Obesity, morbid, BMI 40.0-49.9 Obstructive sleep apnea of adult Prerenal azotemia Shortness of breath Systolic congestive heart failure Ventricular tachycardia (paroxysmal) Social History Smoking Status: Former smoker Tobacco Type: Cigarettes Second Hand Exposure: No; Hx Alcohol Use: Yes Alcohol type: other Hx Substance Use: No Preferred Language: Tuvaluan Communication Ability: Effective Can Sealer Required: No Beliefs That Will Affect Care: None Current Living Situation: Alone Current Living Situation Comment: From home alone 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 NAD. Cooperative. HEENT: Atraumatic, normocephalic.Vision/hearing intact. No JVD Pulm: CTAB A&P. -wheezes, -rales, -rhonchi. Symmetrical chest rise. No increased work of breathing. No respiratory distress. Cardiac: RRR, +sm. Radial pulses intact and symmetrical. Abdominal: Nontender, nondistended, soft. BS present. Extremities: Warm, dry. No edema. Results & Data Results & Data ([facility]) Vital Signs (Past 12 Hours) Vital Signs Temp Pulse Pulse Resp BP BP Pulse Ox 08/19/22 15:13 84 21 75/47 L 93 08/19/22 14:30 79 18 92 08/19/22 14:30 80/51 L 08/19/22 14:00 81 17 94 08/19/22 14:00 79/54 L 08/19/22 13:30 80 18 94 08/19/22 13:30 72/47 L 08/19/22 13:00 86 20 95 08/19/22 13:00 82/51 L 08/19/22 13:35 08/19/22 12:59 36.8 C 90 14 78/56 L 95 08/19/22 13:02 88 O2 Del Method 08/19/22 15:13 Room Air 08/19/22 14:30 Room Air 08/19/22 14:30 08/19/22 14:00 Room Air 08/19/22 14:00 08/19/22 13:30 Room Air 08/19/22 13:30 08/19/22 13:00 Room Air 08/19/22 13:00 08/19/22 13:35 Room Air 08/19/22 12:59 Room Air 08/19/22 13:02 PG Care Time/CCT Total # of Minutes Spent Total Time Spent with Patient: Total time spent is greater than 50% in coordination of care (as documented) at patient's floor/unit and/or counseling patient: Coding Level of Care Code 80166 INT INP/OBS CARE 3/75MIN Diagnoses Acute kidney injury superimposed on CKD N17.9; N18.9 Diabetes mellitus type 2 in obese E11.69; E66.9 VERONA (acute kidney injury) N17.9 Systolic congestive heart failure I50.20 Heart failure chronicity: unspecified HTN (hypertension) I10 Ventricular tachycardia I47.2 Restrictive lung disease J98.4 (4) Systolic congestive heart failure Heart failure chronicity: unspecified Qualified Code(s): I50.20 - Unspecified systolic (congestive) heart failure
[2022-08-19] MEDS ORDERED: NORMOSOL-R 250 ML IV ONE ×2 (15:54→17:57)
[2022-08-19] MEDS ORDERED: NORMOSOL-R 1,000 ML IV SCH (16:55)
[2022-08-19] MEDS ORDERED: NORMOSOL-R 500 ML IV ONE (18:52)
--- NOTE | 2022-08-19 19:45 | Critical Care Consultation ---
Date of Consultation August 19, 2022 Assessment & Plan (1) Cardiogenic shock: (2) Acute on chronic heart failure: (3) VERONA (acute kidney injury): (4) Obesity, morbid, BMI 40.0-49.9: (5) Metabolic syndrome: (6) Sleep apnea: (7) Ventricular tachycardia: (8) AICD (automatic cardioverter/defibrillator) present: Plan Reason Critically Ill: 57 YOM admitted for acute on chronic heart failure/cardiogenic shock. Patient with increase in renal indices in the setting of hypotension. Admitted to ICU for inotropic support with Dobutamine may need neosynepherine as well depending on BP response. 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, NICM, Severe MR, Presence of AICD for Ventricular arrhythmia - Patient presents hypotensive with increase in renal indices- lactate negative and LFTS normal- volume status difficult to eval secondary to body habitus- but reports his weight at his baseline today of 307 - daily weights - Inotropic support with Dobutamine- previous ECHO with EF 35-40% with global hypokinesis- goal MAPS 65 - if remains hypotensive consider adding neosynepherine as well - Hold BB, diuretics, Entresto - Follow his renal indices and perfusion markers- BNP pending on admission - diurese with PRN dosings of IV diuretics if needed - For his ventricular arrhythmia he is with AICD - DDR low raate 80 upper track 1200 CF >188, AT/AT >170- interrogated in Jul 11 - no concerns - Continue his Amiodarone - if arrhythmias return discuss with [facility] as he is pending ablation. Additional antiarrhythmics vs. reload with ammio as well if warranted Respiratory - COTY on CPAP, Hx of COVID - CPAP/BiPAP at night - autoPAP - Supportive care at this time GI - Morbid obesity - no acute needs supportive care - Heart Healthy diet RENAL/LYTES - VERONA - Baseline [employer] 1.6-1.7- increase to 2.17 on admission with BUN 83 - Cuevas placed for LASHAE tracking - Avoid nephrotoxic medications as able- if needed minimize exposure time - No acute needs ENDO - DMII - Insulin basal bolus - Carb consistent heart healthy diet HEME - No acute needs ID - NO concerns for infectious etiology at this time LINES/IV ACCESS - PIV, Cuevas Continue use of these lines - may need arterial line if remaining hypotensive - CVL if vasopressors added and needed for >24 hours DVT PROPHYLAXIS - SCDS Heparin 5000 units subq TID DISPO- ICU while on inotrope/vasopressors I have personally spent 50 minutes of critical care time in the direct manage ment of this patient. This is a life/limb threatening event. This includes time spent evaluating patient, direct bedside care, chart review, placing orders, interpretation of diagnostic studies, discussion with consultants, patient, and family members, as well as other required patient management activities. This time is exclusive of all separately billable procedures, and separate from and in addition to any other critical care service time. Thank you for allowing us to participate in the care of this patient. Please refer to my attending physician's documentation for any further recommendations. History of Present Illness Reason for Consultation: cardiogenic shock need for inotropic support Requesting Physician: Twin Silva Attending Physician: Twin Khalli History of Present Illness 57 YOM with HFmrEF, NICM, DMII, Dual Chamber AICD in place secondary to hx of Ventricular arrhythmia, HLD, Mitral Regurge, Morbid obesity, COTY. Patient denies any dyspnea, chest pain, worsening of his edema, but does endorse worsening orthopnea. Patient presents to the EMD today for complaints of orthostasis, and hypotension. Patient previously admitted in Jun for resp iratory failure in the setting of RSV and decompensated heart failure, patient was managed with assistance of cardiology and was referred to [facility] for refractory VF and worsening EF. He was evaluated in July and at that time had introduction of Entresto and carvedilol. He also was continued on his Bumex with prn dosing of metolazone. Patient reports that since that time he has had noticed that his blood pressure has been decreasing. He noted that through the week his BP has been 80-90's systolic and he has been having increase in dizziness and feeling as he was going to pass out. Patient reports as well that earlier in the week his weight was up to 311 pounds and "he added an extra dose of bumex pill". Today he noted that his blood pressure was down in the 70s and he came to the EMD. In the EMD the patient had routine labs performed, he was trialed with alliquots of small fluid boluses which initially increased BP and then pleatued out. Cardiology was consulted by admitting team and recommendation for inotropic support in the form of Dobutamine was initiated. He is also awaiting a EP evaluation for possible ablation related to his VT COVID test on admission is: NEGATIVE Patient is FULL CODE Allergies Allergy/AdvReac Type Severity Reaction Status Date / Time mexiletine AdvReac Intermediate MADE ME Verified 08/19/22 15:56 SICK Home Medications Medication Instructions Recorded Confirmed Type omega-3 fatty acids 1,250 mg 1,250 mg PO DAILY 03/28/19 08/19/22 History capsule multivitamin 1 tab PO DAILY 12/01/19 08/19/22 History Auto Titrating CPAP #1 ea 03/16/20 06/21/22 Rx CPAP Supplies #1 ea 03/16/20 06/21/22 Rx bumetanide 2 mg tablet 2 mg PO BID #60 tabs 10/05/20 08/19/22 Rx cholecalciferol (vitamin D3) 50 50 mcg PO DAILY 04/05/21 08/19/22 History mcg (2,000 unit) capsule atorvastatin 80 mg tablet 80 mg PO HS 10/13/21 08/19/22 History allopurinol 300 mg tablet 300 mg PO DAILY 12/27/21 08/19/22 History metolazone 5 mg tablet 5 mg PO DAILY PRN WT GAIN 12/27/21 08/19/22 History aspirin 81 mg tablet,delayed 81 mg PO QAM 04/07/22 08/19/22 History release zinc acetate 25 mg (zinc) capsule 0 mg PO DAILY 04/07/22 08/19/22 History blood sugar diagnostic (OneTouch #100 ea 04/08/22 05/26/22 Rx Verio test strips) blood-glucose meter (OneTouch #1 ea 04/08/22 05/26/22 Rx Verio Meter) lancets 33 gauge (OneTouch Delica #100 ea 04/08/22 05/26/22 Rx Lancets) potassium chloride 20 mEq 40 meq PO BID #120 tabs 04/08/22 08/19/22 Rx tablet,extended release(part/cryst) (Klor-Con M) spironolactone 25 mg tablet 12.5 mg PO DAILY #45 tabs 05/16/22 08/19/22 Rx hydrocodone-homatropine 5 mg-1.5 5 ml PO Q6H PRN cough #200 mL 06/29/22 08/19/22 Rx mg/5 mL (5 mL) oral syrup (Hycodan) albuterol sulfate 90 mcg/actuation 2 puff inhalation QID PRN 07/01/22 08/19/22 History aerosol inhaler Shortness Of Breath Or Wheezing fluticasone furoate 200 1 inh inhalation DAILY #60 ea 07/07/22 08/19/22 Rx mcg-vilanterol 25 mcg/dose inhalation powder (Breo Ellipta) allopurinol 100 mg tablet 100 mg PO DAILY 07/10/22 08/19/22 History carvedilol 6.25 mg tablet 12.5 mg PO BID #360 tabs 07/14/22 08/19/22 Rx amiodarone 400 mg tablet 400 mg PO QAM 08/19/22 08/19/22 History sacubitril 24 mg-valsartan 26 mg 1 tab PO BID 08/19/22 08/19/22 History tablet (Entresto) Patient History Medical History Bronchiolitis due to respiratory syncytial virus (RSV) Cardiomyopathy, nonischemic Diabetes mellitus type 2 in obese 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 Dyslipidemia Dyspnea Elevated bilirubin Former smoker Hemoptysis Hypnagogic jerks Hypoxia Metabolic syndrome Non-rheumatic mitral regurgitation Obesity, morbid, BMI 40.0-49.9 Obstructive sleep apnea of adult Prerenal azotemia Shortness of breath Systolic congestive heart failure Ventricular tachycardia (paroxysmal) Social History Smoking Status: Former smoker Tobacco Type: Cigarettes Second Hand Exposure: No; Do You Dip or Chew Tobacco: No; Tobacco Cessation Education Requested by Patient: No Hx Alcohol Use: Yes Alcohol type: beer Hx Substance Use: Yes Last Used Substance: Unknown Last Used Substance Other:: last used more than 4 months ago Substance Use Type Other:: has a medical THC card Preferred Language: Croatian Communication Ability: Effective Statistical Modeler Required: No Beliefs That Will Affect Care: None Current Living Situation: Alone Current Living Situation Comment: From home alone 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 Other Information That Helps Us Care for You: No Feels Safe at Home: Yes Safety Concerns: Feels Safe At This Time Assistive Devices: Cane and Glasses Review of Systems Review of Systems: REVIEW OF SYSTEMS: Constitutional: No fever, sweats or chills Eyes: No diplopia, no worsening or blurred vision ENT: normal hearing, no trouble swallowing Respiratory: (+) cough, dyspnea, NO sputum Cardiovascular: (+) edema, orthopnea, No chest pain, tightness or palpitations Abdomen: No pain, nausea, vomiting, diarrhea or constipation Musculoskeletal: No joint pain, calf pain, swelling Neurologic: No weakness, numbness/tingling, or balance problems Psychiatric: No anxiety or depression Skin: No rash or itch Physical Exam Physical Exam: PHYSICAL EXAM: General: awake, alert, no apparent distress Head: Normocephalic, atraumatic ENT: PERRL, EOMI, no pharyngeal exudate, mucous membranes moist Neuro: AAO x 3, speech clear and appropriate, strength intact bilaterally 5/5, sensation intact and equal all extremities and dermatomes, no pronator drift Chest: equal rise and fall of the chest, no accessory muscle use, scattered crackles throughout Cardiac: Regular rate and rhythm, telemetry reviewed- vpace, skin cool and dry, peripheral pulses +2 no JVD, grade III systolic murmur, pitting edema to knees GI: NABS x 4 quadrants, soft, nontender to palpation, no rebound, guarding or tenderness : Spontaneously voiding, no pain, no CVA tenderness, Extremities: Normal inspection, no peripheral edema or erythema, calfs nontender to palpation Skin: no rash or erythema Results & Data Results & Data ([facility]) Vital Signs (Past 12 Hours) Vital Signs Temp Pulse Pulse Resp BP BP Pulse Ox 08/19/22 19:00 80 20 93 08/19/22 19:00 77/53 L 08/19/22 18:45 77/54 L 08/19/22 18:45 80 22 08/19/22 18:31 80 20 91 08/19/22 18:31 65/39 L 08/19/22 18:30 80 23 08/19/22 18:15 82/55 L 08/19/22 18:15 82 18 92 08/19/22 18:00 82 21 92 08/19/22 18:00 67/56 L 08/19/22 17:45 76/52 L 08/19/22 17:45 82 24 88 L 08/19/22 17:30 82 18 73 L 08/19/22 17:30 77/53 L 08/19/22 17:23 68/43 L 08/19/22 17:23 83 24 08/19/22 17:21 83 18 91 08/19/22 17:21 73/35 L 08/19/22 17:15 70/50 L 08/19/22 17:15 80 18 91 08/19/22 17:00 80 18 92 08/19/22 17:00 56/26 L 08/19/22 16:45 80 16 93 08/19/22 16:45 76/50 L 08/19/22 16:30 80 21 94 08/19/22 16:30 74/50 L 08/19/22 16:14 74/52 L 08/19/22 16:14 83 21 94 08/19/22 16:00 81 16 08/19/22 16:00 64/48 L 08/19/22 15:57 83 18 94 08/19/22 15:57 78/52 L 08/19/22 15:49 71/46 L 08/19/22 15:49 80 18 93 08/19/22 17:48 80 23 76/52 L 91 08/19/22 17:06 85 08/19/22 15:45 69/50 L 08/19/22 15:45 80 15 94 08/19/22 15:42 68/39 L 08/19/22 15:42 80 18 08/19/22 15:41 80 19 93 08/19/22 15:41 63/46 L 08/19/22 15:30 82 22 08/19/22 15:30 71/46 L 08/19/22 15:14 84 20 93 08/19/22 15:14 75/47 L 08/19/22 15:09 67/37 L 08/19/22 15:09 90 30 H 93 08/19/22 15:00 80 22 95 08/19/22 15:00 59/40 L 08/19/22 15:52 80 19 71/46 L 94 08/19/22 15:13 84 21 75/47 L 93 08/19/22 14:30 79 18 92 08/19/22 14:30 80/51 L 08/19/22 14:00 81 17 94 08/19/22 14:00 79/54 L 08/19/22 13:30 80 18 94 08/19/22 13:30 72/47 L 08/19/22 13:00 86 20 95 08/19/22 13:00 82/51 L 08/19/22 13:35 08/19/22 12:59 36.8 C 90 14 78/56 L 95 08/19/22 13:02 88 O2 Del Method 08/19/22 19:00 08/19/22 19:00 08/19/22 18:45 08/19/22 18:45 08/19/22 18:31 08/19/22 18:31 08/19/22 18:30 08/19/22 18:15 08/19/22 18:15 08/19/22 18:00 08/19/22 18:00 08/19/22 17:45 08/19/22 17:45 08/19/22 17:30 08/19/22 17:30 08/19/22 17:23 08/19/22 17:23 08/19/22 17:21 08/19/22 17:21 08/19/22 17:15 08/19/22 17:15 08/19/22 17:00 08/19/22 17:00 08/19/22 16:45 08/19/22 16:45 08/19/22 16:30 08/19/22 16:30 08/19/22 16:14 08/19/22 16:14 08/19/22 16:00 08/19/22 16:00 08/19/22 15:57 08/19/22 15:57 08/19/22 15:49 08/19/22 15:49 08/19/22 17:48 Room Air 08/19/22 17:06 08/19/22 15:45 08/19/22 15:45 08/19/22 15:42 08/19/22 15:42 08/19/22 15:41 08/19/22 15:41 08/19/22 15:30 08/19/22 15:30 08/19/22 15:14 08/19/22 15:14 08/19/22 15:09 08/19/22 15:09 08/19/22 15:00 08/19/22 15:00 08/19/22 15:52 Room Air 08/19/22 15:13 Room Air 08/19/22 14:30 Room Air 08/19/22 14:30 08/19/22 14:00 Room Air 08/19/22 14:00 08/19/22 13:30 Room Air 08/19/22 13:30 08/19/22 13:00 Room Air 08/19/22 13:00 08/19/22 13:35 Room Air 08/19/22 12:59 Room Air 08/19/22 13:02 Laboratory Results Abnormal lab results 08/19/22 08/19/22 08/19/22 Range/Units 13:45 13:45 13:45 RBC 3.75 L (4.70-6.10) M/uL Hgb 11.0 L (14.0-18.0) g/dl Hct 34.8 L (42.0-52.0) % MCHC 31.6 L (32.0-36.0) g/dL RDW Std Deviation 65.8 H (36.4-46.3) fL RDW Coeff of Kylee 19.9 H (11.5-14.5) % Lymph # (Auto) 0.93 L (1.2-3.4) K/uL [place] # (Auto) 0.62 H (0.11-0.59) K/uL PT 12.7 H (9.0-12.0) Seconds INR 1.2 H (0.9-1.1) Sodium 134 L (136-145) mmol/L BUN 83 H (6-23) mg/dl Creatinine 2.17 H (0.6-1.4) mg/dl BUN/Creatinine Ratio 38.2 H (10-20) Glucose 135 H (70-99(Fasting)) mg/dl Total Bilirubin 2.9 H (0.2-1.0) mg/dl TSH (0.300-4.500) uIu/ml 08/19/22 Range/Units 13:45 RBC (4.70-6.10) M/uL Hgb (14.0-18.0) g/dl Hct (42.0-52.0) % MCHC (32.0-36.0) g/dL RDW Std Deviation (36.4-46.3) fL RDW Coeff of Kylee (11.5-14.5) % Lymph # (Auto) (1.2-3.4) K/uL [place] # (Auto) (0.11-0.59) K/uL PT (9.0-12.0) Seconds INR (0.9-1.1) Sodium (136-145) mmol/L BUN (6-23) mg/dl Creatinine (0.6-1.4) mg/dl BUN/Creatinine Ratio (10-20) Glucose (70-99(Fasting)) mg/dl Total Bilirubin (0.2-1.0) mg/dl TSH 5.045 H (0.300-4.500) uIu/ml Diagnostic Findings Chest X-Ray 08/19/22 13:31 XR chest 1V portable CLINICAL HISTORY: weakness TECHNIQUE: Single frontal radiograph of the chest was obtained. Comparison: Comparison is made to chest radiograph 07/15/2022 FINDINGS: Pacemaker defibrillator is seen. Cardiomegaly is noted. The lungs are clear. No evidence of pleural effusion or pneumothorax. IMPRESSION: No acute chest disease. Cardiomegaly is noted. Previously noted pulmonary edema has resolved. ACT 112: Negative or not required by law. Electronically signed by: Gregor Cardona M.D. 08/19/2022 2:11 PM Medications Administered Parenteral Electrolytes (Normosol-R) 1,000 mls @ 120 mls/hr IV .Q8H20M SANDHYA Stop: 08/19/22 21:09 Last Infusion: 08/19/22 18:58 Dose: 0 mls/hr Documented By: Infusion: 08/19/22 18:29 Dose: 120 mls/hr Documented By: OIL PAINTER Infusion: 08/19/22 17:59 Dose: 0 mls/hr Documented By: OIL PAINTER Admin: 08/19/22 16:52 Dose: 80 mls/hr Documented By: OIL PAINTER Discontinued Medications Sodium Chloride (Nss 1000ml) 500 mls @ 999 mls/hr IV .Q31M ONE Stop: 08/19/22 13:51 Last Infusion: 08/19/22 13:54 Dose: 0 mls/hr Documented By: Admin: 08/19/22 13:23 Dose: 999 mls/hr Documented By: SHANELLE Sodium Chloride (Nss 1000ml) 500 mls @ 999 mls/hr IV .Q31M ONE Stop: 08/19/22 15:34 Last Infusion: 08/19/22 15:50 Dose: 0 mls/hr Documented By: OIL PAINTER Admin: 08/19/22 15:16 Dose: 999 mls/hr Documented By: OIL PAINTER Parenteral Electrolytes (Normosol-R) 250 mls @ 999 mls/hr IV .Q16M ONE Stop: 08/19/22 16:09 Last Infusion: 08/19/22 16:26 Dose: 0 mls/hr Documented By: OIL PAINTER Admin: 08/19/22 16:09 Dose: 999 mls/hr Documented By: OIL PAINTER Parenteral Electrolytes (Normosol-R) 250 mls @ 999 mls/hr IV .Q16M ONE Stop: 08/19/22 18:12 Last Infusion: 08/19/22 18:29 Dose: 0 mls/hr Documented By: OIL PAINTER Admin: 08/19/22 17:59 Dose: 999 mls/hr Documented By: OIL PAINTER Parenteral Electrolytes (Normosol-R) 500 mls @ 999 mls/hr IV .Q31M ONE Stop: 08/19/22 19:22 Last Admin: 08/19/22 18:58 Dose: 999 mls/hr Documented By: OIL PAINTER Ondansetron HCl (Ondansetron Inj 2 Mg/Ml 2 Ml Vial) Confirm Administered Dose 4 mg .ROUTE .STK-MED ONE Stop: 08/19/22 13:16 Last Admin: 08/19/22 13:16 Dose: 4 mg Documented By: SHANELLE ECG Additional Comments: Ventricular-paced rhythm Abnormal ECG When compared with ECG of 12-JUL-2022 06:22, Electronic ventricular pacemaker has replaced Electronic atrial pacemaker Coding Level of Care Code 60454 CRITICAL CARE 1ST 30-74M Diagnoses Cardiogenic shock R57.0 Acute on chronic heart failure I50.9 VERONA (acute kidney injury) N17.9 Obesity, morbid, BMI 40.0-49.9 E66.01 Metabolic syndrome E88.81 Sleep apnea G47.30 Ventricular tachycardia I47.2 AICD (automatic cardioverter/defibrillator) present Z95.810
[2022-08-19] MEDS ORDERED: CARBOHYDRATES FOR HYPOGLYCEMIA PO PRN (19:55)
[2022-08-19] MEDS ORDERED: ALBUTEROL HFA 8 GM INHALER INH PRN (19:55)
[2022-08-19] MEDS ORDERED: GLUCAGON FOR INJ 1 MG VIAL SQ PRN (19:55)
[2022-08-19] MEDS ORDERED: GLUCOSE 40% GEL 15 GM TUBE PO PRN (19:55)
[2022-08-19] MEDS ORDERED: STAT IV Infusion **Titration per Protocol STA (19:55)
[2022-08-19] MEDS ORDERED: DEXTROSE 50% 50 ML SYRINGE IV PRN (19:55)
[2022-08-19] MEDS ORDERED: GLUCOSE 10 TAB/TUBE PO PRN (19:55)
[2022-08-19] MEDS: DOBUTamine / D5W 500 MG/250 ML BAG IV SCH (20:22)
[2022-08-19] MEDS ORDERED: FLUARIX QUADRIVALENT 0.5 ML SYR IM ONE (21:00)
[2022-08-19] MEDS ORDERED: PNEUMOCOCCAL POLYSACCHARIDES 25 MCG/0.5 ML VIAL/SYR IM ONE (21:00)
[2022-08-19] MEDS: INSULIN ASPART PER UNIT SC SCH ×2 (21:42→21:43)
[2022-08-19] MEDS: HEPARIN SOD 5,000 UNIT/0.5 ML VIAL SQ SCH (21:43)
[2022-08-19] MEDS: ATORVASTATIN 40 MG TAB PO SCH (21:43)
[2022-08-19] MEDS: LANTUS PER UNIT CHARGE SQ SCH (21:44)
[2022-08-20 00:12] LABS: Appearance Urine Clear (Clear); Bilirubin Urine Negative (Negative); Blood Urine Negative (Negative); Color Urine Yellow; Glucose Urine UA Negative (Negative); Ketones Urine Negative (Negative); Leukocyte Esterase Urine Negative (Negative); Nitrite Urine Negative (Negative); Protein Urine Negative (Negative); Specific Gravity Urine 1.011 (1.000-1.030); Urobilinogen Urine Negative (Negative)
[2022-08-20] MEDS: DOBUTamine / D5W 500 MG/250 ML BAG IV SCH ×3 (02:35→11:34)
[2022-08-20 04:59] LABS: Basophils # (auto) 0.04 K/uL (0-0.2); Basophils % (auto) 0.6 %; Eosinophils # (auto) 0.07 K/uL (0-0.50); Eosinophils % (auto) 1.1 %; Hematocrit (blood only) 33.4 % (42.0-52.0); Hemoglobin 10.9 g/dl (14.0-18.0); Immature Granulocytes # (auto) 0.03 K/uL (0.01-0.20); Immature Granulocytes % (auto) 0.5 %; Lymphocytes # (auto) 0.69 K/uL (1.2-3.4); Lymphocytes % (auto) 10.5 %; Mean Corpuscular Hemoglobin 29.9 pg (25.0-34.0); Mean Corpuscular Hgb Conc 32.6 g/dL (32.0-36.0); Mean Corpuscular Volume 91.8 fL (80.0-100.0); Mean Platelet Volume 9.8 fL (9.4-12.4); Monocytes # (auto) 0.64 K/uL (0.11-0.59); Monocytes % (auto) 9.7 %; Neutrophils # (auto) 5.11 K/uL (1.40-6.50); Neutrophils % (auto) 77.6 %; Platelet Count 193 K/uL (130-400); RDW Coefficient of Variation 19.9 % (11.5-14.5); RDW Standard Deviation 66.1 fL (36.4-46.3); Red Blood Count 3.64 M/uL (4.70-6.10); White Blood Count 6.58 K/ul (4.8-10.8)
[2022-08-20 05:14] LABS: Albumin Level 3.6 gm/dl (3.4-5.0); BUN Creatinine Ratio 37.7 (10-20); Bilirubin Direct 1.7 mg/dl (0-0.2); Bilirubin,Total 4.6 mg/dl (0.2-1.0); Calcium 9.6 mg/dl (8.5-10.1); Est GFR (African American) 40.3 ml/min; Est GFR (Non-African American) 34.8 ml/min; Magnesium 2.1 mg/dl (1.7-2.4); Phosphorus 5.2 mg/dl (2.5-4.9); Potassium 3.9 mmol/L (3.5-5.1); Total Protein 6.5 gm/dl (6.0-8.3)
[2022-08-20] MEDS: HEPARIN SOD 5,000 UNIT/0.5 ML VIAL SQ SCH ×3 (06:26→21:33)
[2022-08-20] MEDS: ACETAMINOPHEN 325 MG TAB PO PRN ×3 (06:31→21:35)
--- NOTE | 2022-08-20 07:38 | Electrocardiogram Report ---
Test Reason : Blood Pressure : / mmHG Vent. Rate : 086 BPM Atrial Rate : 122 BPM P-R Int : 000 ms QRS Dur : 190 ms QT Int : 568 ms P-R-T Axes : 000 -76 094 degrees QTc Int : 679 ms Ventricular-paced rhythm Alternate pacemaker spikes without depolarizaion suggest intermittent non-capture (every other spike) . Abnormal ECG When compared with ECG of 12-JUL-2022 06:22, Electronic ventricular pacemaker has replaced Electronic atrial pacemaker Pacemaker intermittent non-capture suggeted. Reconfirmed by Roberto Carlos Rubalcava ([id number]) on 08/20/2022 11:21:01 AM Referred By: REFERRED SELF Confirmed By:Roberto Carlos Rubalcava
[2022-08-20] MEDS: ASPIRIN 81 MG ECTAB PO SCH (08:00)
[2022-08-20] MEDS: AMIODARONE 200 MG TAB PO SCH (08:00)
[2022-08-20] MEDS: allopurinoL 300 MG TAB PO SCH (08:00)
[2022-08-20] MEDS: allopurinoL 100 MG TAB PO SCH (08:00)
[2022-08-20] MEDS: FLUTICASONE/VILANTEROL 200/25MCG 14 PUFFS/INHALER INH SCH (08:01)
[2022-08-20] MEDS: LANTUS PER UNIT CHARGE SQ SCH ×2 (08:03→20:23)
[2022-08-20] MEDS: INSULIN ASPART PER UNIT SC SCH ×4 (08:04→20:23)
[2022-08-20 10:00] LABS: Estimated Average Glucose 126 mg/dl
--- NOTE | 2022-08-20 10:26 | Critical Care Progress Note ---
Date of Service August 20, 2022 Assessment & Plan (1) Cardiogenic shock: (2) Acute on chronic heart failure: (3) VERONA (acute kidney injury): (4) Obesity, morbid, BMI 40.0-49.9: (5) Metabolic syndrome: (6) Sleep apnea: (7) Ventricular tachycardia: (8) AICD (automatic cardioverter/defibrillator) present: Plan Reason Critically Ill: 57 YOM admitted for acute on chronic heart failure/cardiogenic shock. Patient with increase in renal indices in the setting of hypotension. Admitted to ICU for inotropic support with Dobutamine may need neosynepherine as well depending on BP response. 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, NICM, Severe MR, Presence of AICD for Ventricular arrhythmia - Patient presents hypotensive with increase in renal indices- lactate negative and LFTS normal- volume status difficult to eval secondary to body habitus- but reports his weight at his baseline today of 307 - daily weights - Inotropic support with Dobutamine- previous ECHO with EF 35-40% with global hypokinesis- goal MAPS 65 - if remains hypotensive consider adding neosynepherine as well - Hold BB, diuretics, Entresto - Follow his renal indices and perfusion markers- BNP pending on admission - diurese with PRN dosings of IV diuretics if needed - For his ventricular arrhythmia he is with AICD - DDR low raate 80 upper track 1200 CF >188, AT/AT >170- interrogated in Jul 11 - no concerns - Continue his Amiodarone - if arrhythmias return discuss with [facility] as he is pending ablation. Additional antiarrhythmics vs. 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 1.6-1.7- increase to 2.17 on admission with BUN 83 - Cuevas placed for LASHAE tracking - Avoid nephrotoxic medications as able- if needed minimize exposure time - No acute needs ENDO - DMII - Insulin basal bolus - Carb consistent heart healthy diet HEME - No acute needs ID - NO concerns for infectious etiology at this time Wounds: Chronic venous stasis changes -Wound care consult LINES/IV ACCESS - ERENDIRAFaith Consented for PICC DVT PROPHYLAXIS - SCDS Heparin 5000 units subq TID DISPO- ICU while on inotrope/vasopressors I have personally spent 40 minutes of critical care time in the direct management of this patient. This is a life/limb threatening event. This includes time spent evaluating patient, direct bedside care, chart review, placing orders, interpretation of diagnostic studies, discussion with consultants, patient, and family members, as well as other required patient management activities. This time is exclusive of all separately billable procedures, and separate from and in addition to any other critical care service time. Admission and Anticipated Discharge Date Admission Date: August 19, 2022 Subjective Feels okay. Reports he has new lesion on back of right calf consistent with previous wounds he has had. No naomie chest pain, mild lightheadedness when sitting up in chair. Physical Exam Physical Exam: General: Alert. nontoxic. Skin: Warm, dry, Head: Atraumatic Ears, nose, mouth and throat: airway patent Cardiovascular: Normal peripheral perfusion Respiratory: no respiratory distress Gastrointestinal: Non distended Musculoskeletal: No deformity, mild erythema of right lower extremity with venous stasis changes Results & Data Results & Data ([facility]) Vital Signs (Past 12 Hours) Vital Signs Temp Pulse Resp BP Pulse Ox O2 Del Method O2 Flow Rate 08/20/22 08:00 80 08/20/22 08:00 36.5 C 08/20/22 08:51 104/52 L 08/20/22 08:51 82 19 95 08/20/22 08:49 96/54 L 08/20/22 08:49 83 20 08/20/22 08:30 36.0 C L 80 19 93 08/20/22 08:30 101/47 L 08/20/22 08:20 93/53 L 08/20/22 08:20 36.0 C L 89 17 96 08/20/22 08:10 108/51 L 08/20/22 08:10 36.0 C L 82 19 96 08/20/22 08:00 36.0 C L 80 17 97 08/20/22 08:00 108/60 08/20/22 07:50 108/52 L 08/20/22 07:50 35.9 C L 80 23 95 08/20/22 07:40 35.9 C L 81 17 96 08/20/22 07:40 111/58 L 08/20/22 07:30 35.9 C L 80 17 93 08/20/22 07:30 107/56 L 08/20/22 07:20 119/59 L 08/20/22 07:20 35.9 C L 90 21 97 08/20/22 07:10 35.9 C L 80 21 95 08/20/22 07:10 111/56 L 08/20/22 07:00 35.9 C L 83 16 93 08/20/22 07:00 107/53 L 08/20/22 06:50 105/55 L 08/20/22 06:50 35.9 C L 80 17 90 08/20/22 07:00 36.5 C 08/20/22 07:37 Nasal Cannula 3 08/20/22 06:40 36.0 C L 85 18 112/57 L 96 08/20/22 06:30 36.0 C L 84 20 114/55 L 95 08/20/22 06:20 36.0 C L 81 25 H 116/58 L 96 08/20/22 06:10 36.0 C L 80 24 110/58 L 95 08/20/22 06:00 36.0 C L 80 18 110/55 L 95 08/20/22 05:50 36.0 C L 80 25 H 108/56 L 94 08/20/22 05:40 36.0 C L 87 18 115/60 98 08/20/22 05:30 36.0 C L 82 27 H 117/61 96 08/20/22 05:20 36.0 C L 80 15 103/59 L 98 08/20/22 05:10 36.0 C L 82 17 109/55 L 97 08/20/22 05:00 36.1 C L 80 26 H 92/52 L 91 08/20/22 04:50 36.1 C L 80 21 110/57 L 97 08/20/22 04:40 36.1 C L 80 22 113/54 L 98 08/20/22 04:20 36.1 C L 80 18 109/56 L 97 08/20/22 04:10 36.1 C L 80 18 114/58 L 98 08/20/22 04:00 36.1 C L 80 20 110/52 L 96 08/20/22 03:50 36.1 C L 82 17 109/53 L 86 L 08/20/22 03:40 36.1 C L 80 20 96/48 L 100 08/20/22 03:30 36.1 C L 80 19 116/58 L 99 08/20/22 03:20 36.1 C L 80 23 111/49 L 91 08/20/22 03:10 36.2 C L 80 20 111/49 L 97 08/20/22 03:00 36.2 C L 81 20 111/53 L 100 08/20/22 02:50 36.1 C L 88 13 119/56 L 99 08/20/22 02:40 36.1 C L 80 18 80/39 L 97 08/20/22 02:30 36.1 C L 80 23 74/39 L 99 08/20/22 02:34 80 23 97 2 08/20/22 02:20 36.1 C L 80 20 86/36 L 99 08/20/22 02:10 36.1 C L 80 18 99/45 L 100 08/20/22 02:00 36.1 C L 80 17 105/44 L 99 08/20/22 01:50 36.1 C L 80 19 109/52 L 99 08/20/22 01:40 36.1 C L 80 19 103/47 L 93 08/20/22 01:30 36.1 C L 80 19 110/53 L 100 08/20/22 01:20 36.1 C L 80 18 77/43 L 87 L 08/20/22 01:10 36.2 C L 80 18 81/45 L 88 L 08/20/22 01:00 36.2 C L 80 20 93/46 L 90 08/20/22 00:50 36.3 C L 80 19 103/48 L 98 08/20/22 00:40 36.3 C L 81 21 104/51 L 97 08/20/22 00:30 36.3 C L 82 16 74/45 L 98 08/20/22 00:20 36.3 C L 80 22 81/39 L 97 08/20/22 00:10 36.3 C L 83 21 92/51 L 97 08/20/22 00:00 36.2 C L 83 17 98/61 L 97 08/19/22 23:51 36.2 C L 81 18 106/63 94 08/19/22 23:40 36.3 C L 80 16 106/58 L 97 08/20/22 00:00 82 08/20/22 00:09 82 21 93 2 08/19/22 23:30 36.3 C L 81 16 105/57 L 96 08/19/22 23:20 36.3 C L 85 23 97/60 L 94 08/19/22 23:10 36.3 C L 80 14 104/62 97 08/19/22 23:00 36.3 C L 85 20 111/71 94 08/19/22 22:50 36.3 C L 82 20 102/56 L 96 08/19/22 22:40 36.3 C L 80 17 101/53 L 97 08/19/22 22:30 36.4 C L 82 21 104/56 L 95 08/19/22 22:20 36.2 C L 80 17 113/68 98 Critical Care Results & Data Vital Signs (Past 12 Hours) Vital Signs Temp Pulse Resp BP Pulse Ox O2 Del Method O2 Flow Rate 08/20/22 08:00 80 08/20/22 08:00 36.5 C 08/20/22 08:51 104/52 L 08/20/22 08:51 82 19 95 08/20/22 08:49 96/54 L 08/20/22 08:49 83 20 08/20/22 08:30 36.0 C L 80 19 93 08/20/22 08:30 101/47 L 08/20/22 08:20 93/53 L 08/20/22 08:20 36.0 C L 89 17 96 08/20/22 08:10 108/51 L 08/20/22 08:10 36.0 C L 82 19 96 08/20/22 08:00 36.0 C L 80 17 97 08/20/22 08:00 108/60 08/20/22 07:50 108/52 L 08/20/22 07:50 35.9 C L 80 23 95 08/20/22 07:40 35.9 C L 81 17 96 08/20/22 07:40 111/58 L 08/20/22 07:30 35.9 C L 80 17 93 08/20/22 07:30 107/56 L 08/20/22 07:20 119/59 L 08/20/22 07:20 35.9 C L 90 21 97 08/20/22 07:10 35.9 C L 80 21 95 08/20/22 07:10 111/56 L 08/20/22 07:00 35.9 C L 83 16 93 08/20/22 07:00 107/53 L 08/20/22 06:50 105/55 L 08/20/22 06:50 35.9 C L 80 17 90 08/20/22 07:00 36.5 C 08/20/22 07:37 Nasal Cannula 3 08/20/22 06:40 36.0 C L 85 18 112/57 L 96 08/20/22 06:30 36.0 C L 84 20 114/55 L 95 08/20/22 06:20 36.0 C L 81 25 H 116/58 L 96 08/20/22 06:10 36.0 C L 80 24 110/58 L 95 08/20/22 06:00 36.0 C L 80 18 110/55 L 95 08/20/22 05:50 36.0 C L 80 25 H 108/56 L 94 08/20/22 05:40 36.0 C L 87 18 115/60 98 08/20/22 05:30 36.0 C L 82 27 H 117/61 96 08/20/22 05:20 36.0 C L 80 15 103/59 L 98 08/20/22 05:10 36.0 C L 82 17 109/55 L 97 08/20/22 05:00 36.1 C L 80 26 H 92/52 L 91 08/20/22 04:50 36.1 C L 80 21 110/57 L 97 08/20/22 04:40 36.1 C L 80 22 113/54 L 98 08/20/22 04:20 36.1 C L 80 18 109/56 L 97 08/20/22 04:10 36.1 C L 80 18 114/58 L 98 08/20/22 04:00 36.1 C L 80 20 110/52 L 96 08/20/22 03:50 36.1 C L 82 17 109/53 L 86 L 08/20/22 03:40 36.1 C L 80 20 96/48 L 100 08/20/22 03:30 36.1 C L 80 19 116/58 L 99 08/20/22 03:20 36.1 C L 80 23 111/49 L 91 08/20/22 03:10 36.2 C L 80 20 111/49 L 97 08/20/22 03:00 36.2 C L 81 20 111/53 L 100 08/20/22 02:50 36.1 C L 88 13 119/56 L 99 08/20/22 02:40 36.1 C L 80 18 80/39 L 97 08/20/22 02:30 36.1 C L 80 23 74/39 L 99 08/20/22 02:34 80 23 97 2 08/20/22 02:20 36.1 C L 80 20 86/36 L 99 08/20/22 02:10 36.1 C L 80 18 99/45 L 100 08/20/22 02:00 36.1 C L 80 17 105/44 L 99 08/20/22 01:50 36.1 C L 80 19 109/52 L 99 08/20/22 01:40 36.1 C L 80 19 103/47 L 93 08/20/22 01:30 36.1 C L 80 19 110/53 L 100 08/20/22 01:20 36.1 C L 80 18 77/43 L 87 L 08/20/22 01:10 36.2 C L 80 18 81/45 L 88 L 08/20/22 01:00 36.2 C L 80 20 93/46 L 90 08/20/22 00:50 36.3 C L 80 19 103/48 L 98 08/20/22 00:40 36.3 C L 81 21 104/51 L 97 08/20/22 00:30 36.3 C L 82 16 74/45 L 98 08/20/22 00:20 36.3 C L 80 22 81/39 L 97 08/20/22 00:10 36.3 C L 83 21 92/51 L 97 08/20/22 00:00 36.2 C L 83 17 98/61 L 97 08/19/22 23:51 36.2 C L 81 18 106/63 94 08/19/22 23:40 36.3 C L 80 16 106/58 L 97 08/20/22 00:00 82 08/20/22 00:09 82 21 93 2 08/19/22 23:30 36.3 C L 81 16 105/57 L 96 08/19/22 23:20 36.3 C L 85 23 97/60 L 94 08/19/22 23:10 36.3 C L 80 14 104/62 97 08/19/22 23:00 36.3 C L 85 20 111/71 94 08/19/22 22:50 36.3 C L 82 20 102/56 L 96 08/19/22 22:40 36.3 C L 80 17 101/53 L 97 08/19/22 22:30 36.4 C L 82 21 104/56 L 95 Lab & Micro Results (Past 24 Hours) RBC 3.64 M/uL (4.70-6.10) L 08/20/22 WBC 6.58 K/ul (4.8-10.8) 08/20/22 Hgb 10.9 g/dl (14.0-18.0) L 08/20/22 Hct 33.4 % (42.0-52.0) L 08/20/22 MCV 91.8 fL (80.0-100.0) 08/20/22 MCH 29.9 pg (25.0-34.0) 08/20/22 MCHC 32.6 g/dL (32.0-36.0) 08/20/22 RDW Standard Deviation 66.1 fL (36.4-46.3) H 08/20/22 RDW Coefficient of Variation 19.9 % (11.5-14.5) H 08/20/22 Plt Count 193 K/uL (130-400) 08/20/22 MPV 9.8 fL (9.4-12.4) 08/20/22 Neutrophils (%) (Auto) 77.6 % 08/20/22 Lymphocytes (%) (Auto) 10.5 % 08/20/22 Monocytes # (Auto) 0.64 K/uL (0.11-0.59) H 08/20/22 Eosinophils # (Auto) 0.07 K/uL (0-0.50) 08/20/22 Immature Granulocyte % (Auto) 0.5 % 08/20/22 Neutrophils # (Auto) 5.11 K/uL (1.40-6.50) 08/20/22 Lymphocytes # (Auto) 0.69 K/uL (1.2-3.4) L 08/20/22 Monocytes # (Auto) 0.64 K/uL (0.11-0.59) H 08/20/22 Eosinophils # (Auto) 0.07 K/uL (0-0.50) 08/20/22 Basophils # (Auto) 0.04 K/uL (0-0.2) 08/20/22 Immature Granulocyte # (Auto) 0.03 K/uL (0.01-0.20) 3 Na 137 mmol/L (136-145) 08/20/22 K 3.9 mmol/L (3.5-5.1) 08/20/22 Cl 100 mmol/L (98-107) 08/20/22 CO2 29 mmol/L (21-32) 08/20/22 Anion Gap 8 (3-11) 08/20/22 BUN 78 mg/dl (6-23) H 08/20/22 Creatinine 2.07 mg/dl (0.6-1.4) H 08/20/22 Estimated GFR ( Amer) 40.3 ml/min 08/20/22 Estimated GFR (Non-Af Amer) 34.8 ml/min 08/20/22 BUN/Creatinine Ratio 37.7 (10-20) H 08/20/22 Glu 83 mg/dl (70-99(Fasting)) 08/20/22 Ca 9.6 mg/dl (8.5-10.1) 08/20/22 Phosphorus Level 5.2 mg/dl (2.5-4.9) H 08/20/22 Total Bilirubin 4.6 mg/dl (0.2-1.0) H 08/20/22 Direct Bilirubin 1.7 mg/dl (0-0.2) H 08/20/22 AST 18 U/L (13-39) 08/20/22 ALT 13 U/L (7-52) 08/20/22 Alkaline Phosphatase 57 U/L (34-104) 08/20/22 TP 6.5 gm/dl (6.0-8.3) 08/20/22 Albumin 3.6 gm/dl (3.4-5.0) 08/20/22 Globulin 2.8 gm/dl (2.5-4.0) 08/19/22 Albumin/Globulin Ratio 1.3 (0.9-2) 08/19/22 Mg 2.1 mg/dl (1.7-2.4) 08/20/22 04:23 Calcium Level 9.6 mg/dl (8.5-10.1) 08/20/22 04:23 Prothromb Time International Ratio 1.2 (0.9-1.1) H 08/19/22 13 :45 Diagnostic Findings (Past 24 Hours) Chest X-Ray 08/19/22 13:31 XR chest 1V portable CLINICAL HISTORY: weakness TECHNIQUE: Single frontal radiograph of the chest was obtained. Comparison: Comparison is made to chest radiograph 07/15/2022 FINDINGS: Pacemaker defibrillator is seen. Cardiomegaly is noted. The lungs are clear. No evidence of pleural effusion or pneumothorax. IMPRESSION: No acute chest disease. Cardiomegaly is noted. Previously noted pulmonary edema has resolved. ACT 112: Negative or not required by law. Electronically signed by: Gregor Cardona M.D. 08/19/2022 2:11 PM I & O Totals 24 Hours 08/19/22 08/20/22 08/21/22 06:59 06:59 06:59 Intake Total 3018.154 / 3018.154 Output Total 1950 / 1950 Balance 1068.154 / 1068.154 Cumulative 08/19/22 12:34 thru 08/20/22 06:47 Intake Total 3018.154 Output Total 1950 Balance 1068.154 RT Ventilator Mngmt (Last Documented) Ventilator Ordered Settings Respiratory Rate 19 08/20/22 08:51 Ventilator - PT Measurements Respiratory Rate 19 Coding Level of Care Code 44764 CRITICAL CARE 1ST 30-74M Diagnoses Cardiogenic shock R57.0 Acute on chronic heart failure I50.9 VERONA (acute kidney injury) N17.9 Obesity, morbid, BMI 40.0-49.9 E66.01 Metabolic syndrome E88.81 Sleep apnea G47.30 Ventricular tachycardia I47.2 AICD (automatic cardioverter/defibrillator) present Z95.810
--- NOTE | 2022-08-20 11:16 | Cardiology Consultation ---
Date of Consultation August 20, 2022 Assessment & Plan (1) Orthostatic hypotension: (2) Dizziness: (3) Cardiomyopathy: (4) VERONA (acute kidney injury): (5) AICD (automatic cardioverter/defibrillator) present: Plan 57-year-old man with nonischemic cardiomyopathy who developed symptomatic moderate hypotension this week with mild worsening of renal function, received IV fluids overnight and was initiated on dobutamine, now feeling better with some improvement in renal function. No major recent changes in his vasoactive regimen, although he did start Entresto about 3 weeks ago. Would continue to hold his vasoactive meds including bumetanide, carvedilol, metolazone, Entresto, and spironolactone through today, with intent to gradually add back once his blood pressure more fully recovers (he still had orthostasis this morning). Would avoid additional IV fluids in the absence of more profound/symptomatic hypotension, since ultimately any substantial volume load will need to be later diuresed. He is not having any ongoing heart failure symptoms presently and is fairly comfortable, even lying flat. Neck veins and chest x-ray do not suggest failure. Although his BNP is more elevated than previously, his renal function has worsened (which can cause elevated BNP) and he is now on Entresto (BNP becomes unreliable, N-terminal pro BNP is preferred in patients on Entresto). Continue amiodarone to suppress ventricular dysrhythmia. ECG from yesterday shows ventricular pacing (he is usually atrial/ventricular sequential paced), with alternating spikes apparently not depolarizing (suggesting intermittent noncapture). Doubt that he has actual pacemaker dysfunction, more likely atrial dysrhythmia with attempted ventricular tracking, but will confirm this with Dr. Moran (he is going to review the ECGs). Since he does not appear to have cardiogenic shock (lactate levels were normal and he seems to be perfusing well), and since there is a question of atrial dysrhythmia with inappropriate pacing, would wean dobutamine promptly. History of Present Illness Reason for Consultation: acute on chronic CHF/cardiogenic shock Requesting Physician: Kieran Joy Attending Physician: Kieran Joy History of Present Illness 57-year-old man with nonischemic cardiomyopathy, HFrEF, recurrent ventricular dysrhythmias (on amiodarone/status post dual-chamber ICD), who was admitted 3/ /2023 with lightheadedness, moderate hypotension (SBP 80 mm Hg), and acute on chronic renal insufficiency. He received some intravenous fluids, was initiated on intravenous dobutamine, and had his vasoactive medications held. Overnight, he noted no dyspnea at rest, orthopnea, or PND and he rested reasonably well. No chest pain at any time. He has not been tachycardic, but does note subjective palpitations from time to time. No significant dysrhythmias noted. This morning, when he was assisted assisted to the commode he became lightheaded and was found to have mild hypotension and returned to bed. At the time of my evaluation, he was comfortable at rest in bed. Allergies Allergy/AdvReac Type Severity Reaction Status Date / Time mexiletine AdvReac Intermediate MADE ME Verified 08/19/22 15:56 SICK Home Medications Medication Instructions Recorded Confirmed Type omega-3 fatty acids 1,250 mg 1,250 mg PO DAILY 03/28/19 08/19/22 History capsule multivitamin 1 tab PO DAILY 12/01/19 08/19/22 History Auto Titrating CPAP #1 ea 03/16/20 06/21/22 Rx CPAP Supplies #1 ea 03/16/20 06/21/22 Rx bumetanide 2 mg tablet 2 mg PO BID #60 tabs 10/05/20 08/19/22 Rx cholecalciferol (vitamin D3) 50 50 mcg PO DAILY 04/05/21 08/19/22 History mcg (2,000 unit) capsule atorvastatin 80 mg tablet 80 mg PO HS 10/13/21 08/19/22 History allopurinol 300 mg tablet 300 mg PO DAILY 12/27/21 08/19/22 History metolazone 5 mg tablet 5 mg PO DAILY PRN WT GAIN 12/27/21 08/19/22 History aspirin 81 mg tablet,delayed 81 mg PO QAM 04/07/22 08/19/22 History release zinc acetate 25 mg (zinc) capsule 0 mg PO DAILY 04/07/22 08/19/22 History blood sugar diagnostic (RABBLuch #100 ea 04/08/22 05/26/22 Rx Verio test strips) blood-glucose meter ([employer] FinancialTouch #1 ea 04/08/22 05/26/22 Rx Verio Meter) lancets 33 gauge (OneTouch Delica #100 ea 04/08/22 05/26/22 Rx Lancets) potassium chloride 20 mEq 40 meq PO BID #120 tabs 04/08/22 08/19/22 Rx tablet,extended release(part/cryst) (Klor-Con M) spironolactone 25 mg tablet 12.5 mg PO DAILY #45 tabs 05/16/22 08/19/22 Rx hydrocodone-homatropine 5 mg-1.5 5 ml PO Q6H PRN cough #200 mL 06/29/22 08/19/22 Rx mg/5 mL (5 mL) oral syrup (Hycodan) albuterol sulfate 90 mcg/actuation 2 puff inhalation QID PRN 07/01/22 08/19/22 History aerosol inhaler Shortness Of Breath Or Wheezing fluticasone furoate 200 1 inh inhalation DAILY #60 ea 07/07/22 08/19/22 Rx mcg-vilanterol 25 mcg/dose inhalation powder (Breo Ellipta) allopurinol 100 mg tablet 100 mg PO DAILY 07/10/22 08/19/22 History carvedilol 6.25 mg tablet 12.5 mg PO BID #360 tabs 07/14/22 08/19/22 Rx amiodarone 400 mg tablet 400 mg PO QAM 08/19/22 08/19/22 History sacubitril 24 mg-valsartan 26 mg 1 tab PO BID 08/19/22 08/19/22 History tablet (Entresto) Patient History Medical History Bronchiolitis due to respiratory syncytial virus (RSV) Cardiomyopathy, nonischemic Diabetes mellitus type 2 in obese 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 Dyslipidemia Dyspnea Elevated bilirubin Former smoker Hemoptysis Hypnagogic jerks Hypoxia Metabolic syndrome Non-rheumatic mitral regurgitation Obesity, morbid, BMI 40.0-49.9 Obstructive sleep apnea of adult Prerenal azotemia Restrictive lung disease Shortness of breath Systolic congestive heart failure Ventricular tachycardia (paroxysmal) Social History Smoking Status: Former smoker Tobacco Type: Cigarettes Second Hand Exposure: No; Hx Alcohol Use: Yes Alcohol type: beer Hx Substance Use: Yes Last Used Substance: Unknown Last Used Substance Other:: last used more than 4 months ago Substance Use Type Other:: has a medical THC card Preferred Language: Kenyan Communication Ability: Effective Financial Aids Officer Required: No Beliefs That Will Affect Care: None Current Living Situation: Alone Current Living Situation Comment: From home alone 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 Weight not obtained today. BP 104/52 mmHg. Pulse 80-90 bpm overnight. Skin: no ecchymoses or generalized lesions. HEENT: unremarkable. Neck: Jugular venous pulse difficult to assess due to habitus but appears nonelevated, no carotid bruits. Lungs: clear bilaterally. Cardiac: regular rhythm, normal S1 and S2, no murmur or gallop. Abdomen: benign. Extremities: 1+ pretibial edema (less than his usual, per patient), pulses intact. Neurologic: normal affect and conversation, nonfocal. Results & Data ([facility]) Laboratory Results Potassium 3.9. BUN 78, creatinine 2.07 (83/2.17 yesterday). BNP 808 (prior range ) Diagnostic Findings ECG showed ventricular pacing at 86 bpm with alternating pacing spikes showing no depolarization, suggesting intermittent failure to capture (every other beat). Possibly atrial dysrhythmia with ventricular tracking (but pacing rate seems high) PG Care Time/CCT Total # of Minutes Spent Total Time Spent with Patient: Total time spent is greater than 50% in coordination of care (as documented) at patient's floor/unit and/or counseling patient: Coding Level of Care Code 75072 IN/OBS CONSULT LVL 4,60M Diagnoses Orthostatic hypotension I95.1 Dizziness R42 Cardiomyopathy I42.9 VERONA (acute kidney injury) N17.9 AICD (automatic cardioverter/defibrillator) present Z95.810
--- NOTE | 2022-08-20 12:54 | XRay Report ---
XR chest 1V portable CLINICAL HISTORY: Right PICC line placement TECHNIQUE: Single frontal radiograph of the chest was obtained. Comparison: Comparison is made to chest radiograph 08/19/2022 FINDINGS: Dual lead pacemaker is seen. A right PICC has been placed with the tip in the cavoatrial junction. Ca rdiomegaly is noted. Prominence and cephalization of the vasculature is seen. No evidence of pleural effusion or pneumothorax. IMPRESSION: Satisfactory appearance of right PICC. Stable cardiomegaly. ACT 112: Negative or not required by law. Electronically signed by: Gregor Cardona M.D. 08/20/2022 12:51 PM
[2022-08-20] MEDS: ATORVASTATIN 40 MG TAB PO SCH (20:13)
--- NOTE | 2022-08-20 20:47 | Communication Note ---
Date of Service: August 20, 2022- 20:35 Called to bedside for complaint of headache and left cheek numbness along patient cheek bone, that just started. Patient states that headache is left temporal 3-5/10. Started in left ear as well as gets worse with opening jaw. PE: Nuerological examination performed- without any visual field deficits pupils brisk and equal, , motor strength 5/5 throughout sensation intact in all dermatomes including face, speech clear and appropriate without any facial droop or dysarthria, no ataxia and no pronator drift. ENT: sensation of fullness with palpation of sinuses, and some ear pain with opening of jaw. Plan: Without focal deficits highly doubt CVA- patent with RSV a few weeks ago and reports that since then he has had feeling of left ear fullness and discomfort- pain with palpation of frontal sinus. Continue with supportive care and Tylenol for headaches no acute treatment needed at this time. No additional coding required
--- NOTE | 2022-08-20 21:09 | Hospitalist Progress Note ---
Date of Service August 20, 2022 Assessment & Plan (1) Shock: Plan: 2nd to marked volume depletion from diuretics in the setting of chronic systolic CHF with EF 35-40% remains on dobutamine infusion with plans to wean off today appreciate ICU assistance no evidence of cardiogenic shock or septic shock cortisol level >10 (2) VERONA (acute kidney injury): Plan: pre-renal/ATN 2nd to #1 supportive care dobutamine BPs improved (3) Gout: (4) Diabetes mellitus type 2 in obese: (5) Systolic congestive heart failure: Plan: EF 35-40% echo 06/2022 holding all diuretics and coreg due to #1 (6) Obstructive sleep apnea of adult: Plan: NIPPV HS (7) Obesity, morbid, BMI 40.0-49.9: Plan: BMI 46 (8) Ventricular tachycardia: Plan: h/o AICD in place (9) Restrictive lung disease: Plan: 2nd to #7 (10) AICD (automatic cardioverter/defibrillator) present: (11) HTN (hypertension): Plan: now with #1 (12) Abnormal LFTs: Plan: 2nd to #1 likely repeat in am Admission and Anticipated Discharge Date Admission Date: August 19, 2022 Subjective saw patient late in day he denied any complaints no orthopnea no cp no dyspnea eating fair still was on dobutamine 2.5mcg during my visit Review of Systems Review of Systems: gen - no fevers or chills neuro - mild headache earlier today now resolved GI - no N/V Physical Exam Physical Exam: gen - morbidly obese, NAD neck - no JVD mouth - MMM heart - RRR, s1 s2 lungs - CTA b/l abd - soft NT ND BS+ ext - no edema, pulses 2+ b/l Results & Data Results & Data ([facility]) Vital Signs (Past 12 Hours) Vital Signs Temp Pulse Resp BP Pulse Ox 08/20/22 18:20 109/67 08/20/22 18:20 36.5 C 80 18 92 08/20/22 18:10 104/60 08/20/22 18:10 36.5 C 79 18 08/20/22 18:00 36.4 C L 83 16 93 08/20/22 18:00 118/61 08/20/22 17:50 106/56 L 08/20/22 17:50 36.4 C L 82 18 08/20/22 17:40 103/60 08/20/22 17:40 36.4 C L 80 20 93 08/20/22 17:30 36.4 C L 80 21 90 08/20/22 17:30 116/66 08/20/22 17:20 36.3 C L 80 18 96 08/20/22 17:20 121/67 08/20/22 17:10 121/64 08/20/22 17:10 36.4 C L 80 19 08/20/22 17:00 36.4 C L 80 19 95 08/20/22 17:00 124/66 08/20/22 16:50 36.4 C L 80 22 92 08/20/22 16:50 119/74 08/20/22 16:40 129/75 08/20/22 16:40 36.3 C L 83 25 H 93 08/20/22 16:30 36.3 C L 82 23 94 08/20/22 16:30 124/68 08/20/22 16:20 118/62 08/20/22 16:20 36.3 C L 81 17 95 08/20/22 16:16 109/57 L 08/20/22 16:16 36.3 C L 86 15 92 08/20/22 16:00 36.2 C L 82 22 96 08/20/22 16:00 132/76 08/20/22 15:50 122/61 08/20/22 15:50 36.2 C L 83 22 96 08/20/22 15:41 36.2 C L 82 18 95 08/20/22 15:41 113/67 08/20/22 15:30 36.1 C L 81 19 94 08/20/22 15:30 100/60 08/20/22 15:20 119/59 L 08/20/22 15:20 36.1 C L 85 16 96 08/20/22 15:10 121/67 08/20/22 15:10 36.1 C L 81 21 93 08/20/22 15:00 36.1 C L 82 19 08/20/22 15:00 127/63 08/20/22 14:50 112/65 08/20/22 14:50 36.1 C L 81 23 96 08/20/22 14:41 130/58 L 08/20/22 14:41 36.1 C L 82 25 H 95 08/20/22 14:30 36.1 C L 83 26 H 94 08/20/22 14:30 103/60 08/20/22 14:20 36.0 C L 83 16 98 08/20/22 14:20 119/68 08/20/22 16:00 82 08/20/22 16:00 36.6 C 08/20/22 13:40 126/76 08/20/22 13:40 35.9 C L 79 23 97 08/20/22 13:30 36.1 C L 79 16 92 08/20/22 13:30 106/68 08/20/22 13:20 102/77 08/20/22 13:20 36.2 C L 80 17 93 08/20/22 13:15 36.2 C L 80 26 H 95 08/20/22 13:10 115/77 08/20/22 13:10 36.2 C L 81 22 91 08/20/22 13:00 36.2 C L 80 20 91 08/20/22 13:00 119/71 08/20/22 12:50 113/85 08/20/22 12:50 36.2 C L 80 16 91 08/20/22 12:45 36.2 C L 80 16 93 08/20/22 12:41 36.2 C L 80 33 H 94 08/20/22 12:41 126/76 08/20/22 12:30 36.3 C L 80 16 95 08/20/22 12:30 128/53 L 08/20/22 12:25 120/67 08/20/22 12:25 36.2 C L 80 21 94 08/20/22 12:15 36.2 C L 81 20 97 08/20/22 12:00 36.2 C L 80 16 96 08/20/22 11:45 36.1 C L 80 20 97 08/20/22 11:40 36.1 C L 80 27 H 95 08/20/22 11:40 106/62 08/20/22 11:30 36.1 C L 86 18 94 08/20/22 11:30 111/62 08/20/22 11:20 114/62 08/20/22 11:20 36.1 C L 85 18 97 08/20/22 11:15 36.0 C L 80 18 96 08/20/22 11:10 117/58 L 08/20/22 11:10 36.0 C L 80 19 95 08/20/22 11:00 36.0 C L 80 19 96 08/20/22 11:00 112/59 L 08/20/22 10:50 114/52 L 08/20/22 10:50 36.0 C L 80 22 89 L 08/20/22 10:45 36.1 C L 80 15 92 08/20/22 10:40 111/55 L 08/20/22 10:40 36.0 C L 80 20 93 08/20/22 10:30 36.0 C L 81 19 96 08/20/22 10:30 112/55 L 08/20/22 10:20 103/56 L 08/20/22 10:20 36.0 C L 84 17 96 08/20/22 10:15 36.0 C L 80 17 96 08/20/22 10:10 112/57 L 08/20/22 10:10 36.0 C L 80 19 96 08/20/22 10:00 36.0 C L 79 23 97 08/20/22 10:00 112/64 08/20/22 09:50 105/55 L 08/20/22 09:50 36.0 C L 82 20 97 08/20/22 09:45 36.0 C L 82 20 97 08/20/22 09:40 105/53 L 08/20/22 09:40 36.0 C L 80 23 96 08/20/22 09:30 36.1 C L 80 16 93 08/20/22 09:30 95/47 L 08/20/22 09:20 102/53 L 08/20/22 09:20 36.1 C L 80 16 93 08/20/22 09:15 36.1 C L 81 26 H 95 08/20/22 09:10 97/59 L 08/20/22 09:10 87 23 96 Laboratory Results Laboratory Results - last 24 hr 08/20/22 08/20/22 08/20/22 04:23 11:23 16:35 POC Glucose 129 H 120 H Estimat Average Glucose 126 Hemoglobin A1c 6.0 H 08/20/22 08/21/22 20:18 07:26 POC Glucose 153 H 102 H Estimat Average Glucose Hemoglobin A1c PG Care Time/CCT Total # of Minutes Spent Total Time Spent with Patient: Total time spent is greater than 50% in coordination of care (as documented) at patient's floor/unit and/or counseling patient: Coding Level of Care Code 77752 SUB INP/OBS CARE /25MIN Diagnoses Shock R57.9 VERONA (acute kidney injury) N17.9 Gout M10.9 Diabetes mellitus type 2 in obese E11.69; E66.9 Systolic congestive heart failure I50.20 Heart failure chronicity: unspecified Obstructive sleep apnea of adult G47.33 Obesity, morbid, BMI 40.0-49.9 E66.01 Ventricular tachycardia I47.2 Restrictive lung disease J98.4 AICD (automatic cardioverter/defibrillator) present Z95.810 HTN (hypertension) I10 Abnormal LFTs R79.89 (5) Systolic congestive heart failure Heart failure chronicity: unspecified Qualified Code(s): I50.20 - Unspecified systolic (congestive) heart failure
[2022-08-21] MEDS: HEPARIN SOD 5,000 UNIT/0.5 ML VIAL SQ SCH ×3 (06:00→20:50)
[2022-08-21] MEDS: AMIODARONE 200 MG TAB PO SCH (08:02)
[2022-08-21] MEDS: FLUTICASONE/VILANTEROL 200/25MCG 14 PUFFS/INHALER INH SCH (08:02)
[2022-08-21] MEDS: allopurinoL 100 MG TAB PO SCH (08:02)
[2022-08-21] MEDS: allopurinoL 300 MG TAB PO SCH (08:02)
[2022-08-21] MEDS: ASPIRIN 81 MG ECTAB PO SCH (08:02)
[2022-08-21] MEDS: INSULIN ASPART PER UNIT SC SCH ×4 (08:03→20:51)
[2022-08-21] MEDS: LANTUS PER UNIT CHARGE SQ SCH ×2 (08:04→20:53)
--- NOTE | 2022-08-21 09:36 | Cardiology Progress Note ---
Date of Service August 21, 2022 Assessment & Plan (1) Orthostatic hypotension: (2) Dizziness: (3) Cardiomyopathy: (4) VERONA (acute kidney injury): (5) AICD (automatic cardioverter/defibrillator) present: Plan He is doing well this morning, as noted he was weaned off dobutamine yesterday. He is asymptomatic at rest but his BP remains marginal. Hope to gradually reintroduce his vasoactive regimen, but would first check orthostatics and morning labs. Could restart spironolactone, likely will restart furosemide at reduced dose (perhaps once a day rather than twice daily), continue to hold carvedilol and Entresto until reassessed later this morning. Repeat ECG yesterday showed improvement in pacing with atrial pacing, ventricular sensing rather than the ventricular pacing he showed on admission. Continue amiodarone to suppress ventricular dysrhythmia. Admission and Anticipated Discharge Date Admission Date: August 19, 2022 Subjective Uneventful night, he is doing well this morning. Weaned off dobutamine last evening. BP low normal, has not yet been out of bed, but was able to get up into a chair yesterday afternoon without further orthostasis. Rhythm his likely atrial paced ventricular sensed at 80 bpm consistently. Good diuresis overnight (likely due to dobutamine). Physical Exam Physical Exam: No distress. Weight not obtained today. BP 92/60 mmHg. Pulse 80 bpm overnight. Skin: no ecchymoses or generalized lesions. HEENT: unremarkable. Neck: Jugular venous pulse mildly elevated, no carotid bruits. Lungs: clear bilaterally. Cardiac: regular rhythm, normal S1 and S2, no murmur or gallop. Abdomen: benign. Extremities: trace-1+ pretibial edema (less than his usual, per patient), pulses intact. Neurologic: normal affect and conversation, nonfocal. Results & Data ([facility]) Laboratory Results Labs from today still pending. PG Care Time/CCT Total # of Minutes Spent Total Time Spent with Patient: Total time spent is greater than 50% in coordination of care (as documented) at patient's floor/unit and/or counseling patient: Coding Level of Care Code 64618 SUB INP/OBS CARE 3/50MIN Diagnoses Orthostatic hypotension I95.1 Dizziness R42 Cardiomyopathy I42.9 VERONA (acute kidney injury) N17.9 AICD (automatic cardioverter/defibrillator) present Z95.810
--- NOTE | 2022-08-21 09:59 | Critical Care Progress Note ---
Date of Service August 21, 2022 Assessment & Plan (1) Cardiogenic shock: (2) Acute on chronic heart failure: (3) VERONA (acute kidney injury): (4) Obesity, morbid, BMI 40.0-49.9: (5) Metabolic syndrome: (6) Sleep apnea: (7) Ventricular tachycardia: (8) AICD (automatic cardioverter/defibrillator) present: Plan Reason Critically Ill: 57 YOM admitted for acute on chronic heart failure/cardiogenic shock. Patient with increase in renal indices in the setting of hypotension. Admitted to ICU for inotropic support with Dobutamine may need neosynepherine as well depending on BP response. 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: Improved NICM: Stable, Severe MR: Stable Presence of AICD for Ventricular arrhythmia -Reviewed cardiology notes, reintroducing spironolactone Respiratory - COTY on CPAP, Hx of COVID - CPAP/BiPAP at night - autoPAP - Supportive care at this time GI - Morbid obesity - no acute needs supportive care - Heart Healthy diet RENAL/LYTES - VERONA: Improved - Baseline [employer]CE 1.6-1.7- increase to 2.17 on admission with BUN 83 -Discontinue Cuevas - Avoid nephrotoxic medications as able- if needed minimize exposure time - No acute needs ENDO - DMII - Insulin basal bolus - Carb consistent heart healthy diet HEME - No acute needs ID - NO concerns for infectious etiology at this time Wounds: Chronic venous stasis changes -Reviewed wound care consult: Follow-up as outpatient LINES/IV ACCESS - PIV, PICC line placed: Consider removal in next 24 hours if remains off vasoactive medication DVT PROPHYLAXIS - SCDS Heparin 5000 units subq TID DISPO-stable for downgrade out of ICU Admission and Anticipated Discharge Date Admission Date: August 19, 2022 Subjective Uneventful night, requesting Cuevas out, no dizziness when up ambulating to toilet today. Reports last week he had pizza which is not his advised diet. He gained 4 pounds over the course of the week after having the pizza. Physical Exam Physical Exam: General: Alert. nontoxic. Skin: Warm, dry, Head: Atraumatic Ears, nose, mouth and throat: airway patent Cardiovascular: Normal peripheral perfusion Respiratory: no respiratory distress Gastrointestinal: Non distended Musculoskeletal: No deformity, mild erythema of right lower extremity with venous stasis changes Results & Data Results & Data ([facility]) Vital Signs (Past 12 Hours) Vital Signs Temp Pulse Resp BP Pulse Ox O2 Del Method FiO2 08/21/22 09:00 36.6 C 80 16 08/21/22 09:00 92/60 L 08/21/22 08:30 36.6 C 80 17 08/21/22 08:30 107/62 08/21/22 08:00 36.6 C 83 25 H 08/21/22 07:30 36.5 C 82 22 08/21/22 07:30 111/70 08/21/22 07:14 93/67 L 08/21/22 07:14 36.4 C L 85 25 H 95 08/21/22 07:00 36.5 C 80 20 94 08/21/22 07:00 81/56 L 08/21/22 06:51 97/55 L 08/21/22 06:51 36.5 C 81 18 94 08/21/22 06:30 36.6 C 80 16 93 08/21/22 08:00 80 08/21/22 07:43 Room Air 08/21/22 06:01 36.6 C 80 20 95 08/21/22 05:30 36.5 C 79 21 97/56 L 93 08/21/22 00:00 82 08/21/22 05:00 36.5 C 80 22 91/59 L 97 08/21/22 04:30 36.6 C 80 18 94/55 L 94 08/21/22 04:00 36.6 C 82 15 93/53 L 08/21/22 03:30 36.6 C 80 15 89/60 L 86 L 08/21/22 03:00 36.8 C 80 16 91/49 L 89 L 08/21/22 02:30 36.8 C 80 20 91/53 L 96 08/21/22 02:00 36.9 C 80 24 87/54 L 92 08/21/22 01:30 37.0 C 80 16 95/53 L 93 08/21/22 01:00 37.1 C 80 20 95/61 L 93 08/21/22 01:00 95/61 L 08/21/22 00:30 37.1 C 82 25 H 91/68 L 93 08/21/22 00:00 37.1 C 84 19 104/58 L 86 L 08/20/22 23:30 37.0 C 81 17 102/55 L 08/20/22 23:10 37.0 C 79 19 92/55 L 81 L 08/20/22 23:00 37.0 C 81 17 104/64 93 08/20/22 22:50 36.9 C 82 19 92/57 L 93 08/20/22 22:40 36.9 C 82 16 86/57 L 86 L 08/20/22 22:30 36.9 C 81 37 H 111/60 81 L 08/20/22 22:20 36.9 C 81 15 103/61 78 L 08/20/22 22:10 36.9 C 81 23 94/58 L 95 08/20/22 22:00 36.9 C 80 17 88/60 L 94 08/21/22 00:32 82 22 95 25 Critical Care Results & Data Vital Signs (Past 12 Hours) Vital Signs Temp Pulse Resp BP Pulse Ox O2 Del Method FiO2 08/21/22 09:00 36.6 C 80 16 08/21/22 09:00 92/60 L 08/21/22 08:30 36.6 C 80 17 08/21/22 08:30 107/62 08/21/22 08:00 36.6 C 83 25 H 08/21/22 07:30 36.5 C 82 22 08/21/22 07:30 111/70 08/21/22 07:14 93/67 L 08/21/22 07:14 36.4 C L 85 25 H 95 08/21/22 07:00 36.5 C 80 20 94 08/21/22 07:00 81/56 L 08/21/22 06:51 97/55 L 08/21/22 06:51 36.5 C 81 18 94 08/21/22 06:30 36.6 C 80 16 93 08/21/22 08:00 80 08/21/22 07:43 Room Air 08/21/22 06:01 36.6 C 80 20 95 08/21/22 05:30 36.5 C 79 21 97/56 L 93 08/21/22 00:00 82 08/21/22 05:00 36.5 C 80 22 91/59 L 97 08/21/22 04:30 36.6 C 80 18 94/55 L 94 08/21/22 04:00 36.6 C 82 15 93/53 L 08/21/22 03:30 36.6 C 80 15 89/60 L 86 L 08/21/22 03:00 36.8 C 80 16 91/49 L 89 L 08/21/22 02:30 36.8 C 80 20 91/53 L 96 08/21/22 02:00 36.9 C 80 24 87/54 L 92 08/21/22 01:30 37.0 C 80 16 95/53 L 93 08/21/22 01:00 37.1 C 80 20 95/61 L 93 08/21/22 01:00 95/61 L 08/21/22 00:30 37.1 C 82 25 H 91/68 L 93 08/21/22 00:00 37.1 C 84 19 104/58 L 86 L 08/20/22 23:30 37.0 C 81 17 102/55 L 08/20/22 23:10 37.0 C 79 19 92/55 L 81 L 08/20/22 23:00 37.0 C 81 17 104/64 93 08/20/22 22:50 36.9 C 82 19 92/57 L 93 08/20/22 22:40 36.9 C 82 16 86/57 L 86 L 08/20/22 22:30 36.9 C 81 37 H 111/60 81 L 08/20/22 22:20 36.9 C 81 15 103/61 78 L 08/20/22 22:10 36.9 C 81 23 94/58 L 95 08/20/22 22:00 36.9 C 80 17 88/60 L 94 08/21/22 00:32 82 22 95 25 Lab & Micro Results (Past 24 Hours) No Data to Display Na 135 mmol/L (136-145) L 08/21/22 K 4.7 mmol/L (3.5-5.1) 08/21/22 Cl 101 mmol/L (98-107) 08/21/22 CO2 31 mmol/L (21-32) 08/21/22 Anion Gap 3 (3-11) 08/21/22 BUN 61 mg/dl (6-23) H 08/21/22 Creatinine 1.74 mg/dl (0.6-1.4) H 08/21/22 Estimated GFR ( Amer) 49.7 ml/min 08/21/22 Estimated GFR (Non-Af Amer) 42.9 ml/min 08/21/22 BUN/Creatinine Ratio 35.1 (10-20) H 08/21/22 Glu 144 mg/dl (70-99(Fasting)) H 08/21/22 Ca 9.8 mg/dl (8.5-10.1) 08/21/22 Total Bilirubin 3.1 mg/dl (0.2-1.0) H 08/21/22 Direct Bilirubin 1.2 mg/dl (0-0.2) H 08/21/22 AST 16 U/L (13-39) 08/21/22 ALT 13 U/L (7-52) 08/21/22 Alkaline Phosphatase 66 U/L (34-104) 08/21/22 TP 6.8 gm/dl (6.0-8.3) 08/21/22 Albumin 3.7 gm/dl (3.4-5.0) 08/21/22 Calcium Level 9.8 mg/dl (8.5-10.1) 08/21/22 10:04 Diagnostic Findings (Past 24 Hours) Chest X-Ray 08/20/22 12:16 XR chest 1V portable CLINICAL HISTORY: Right PICC line placement TECHNIQUE: Single frontal radiograph of the chest was obtained. Comparison: Comparison is made to chest radiograph 08/19/2022 FINDINGS: Dual lead pacemaker is seen. A right PICC has been placed with the tip in the cavoatrial junction. Cardiomegaly is noted. Prominence and cephalization of the vasculature is seen. No evidence of pleural effusion or pneumothorax. IMPRESSION: Satisfactory appearance of right PICC. Stable cardiomegaly. ACT 112: Negative or not required by law. Electronically signed by: Gregor Cardona M.D. 08/20/2022 12:51 PM I & O Totals 24 Hours 08/20/22 08/21/22 08/22/22 06:59 06:59 06:59 Intake Total 3018.154 / 3018.154 1134.968 / 1134.968 Output Total 1949 / 1949 2750 / 2750 Balance 1068.154 / 1068.154 -1615.032 / -1615.032 Cumulative 08/19/22 12:34 thru 08/21/22 06:01 Intake Total 4153.122 Output Total 4700 Balance -546.878 RT Ventilator Mngmt (Last Documented) Ventilator Ordered Settings Respiratory Rate 16 08/21/22 09:00 Fraction of Inspired Oxygen 25 08/21/22 00:32 Ventilator - PT Measurements Respiratory Rate 16 Coding Level of Care Code 78381 SUB INP/OBS CARE 3/50MIN Diagnoses Cardiogenic shock R57.0 Acute on chronic heart failure I50.9 VERONA (acute kidney injury) N17.9 Obesity, morbid, BMI 40.0-49.9 E66.01 Metabolic syndrome E88.81 Sleep apnea G47.30 Ventricular tachycardia I47.2 AICD (automatic cardioverter/defibrillator) present Z95.810
[2022-08-21 10:45] LABS: Potassium 4.7 mmol/L (3.5-5.1)
[2022-08-21 10:46] LABS: Albumin Level 3.7 gm/dl (3.4-5.0); BUN Creatinine Ratio 35.1 (10-20); Bilirubin Direct 1.2 mg/dl (0-0.2); Bilirubin,Total 3.1 mg/dl (0.2-1.0); Calcium 9.8 mg/dl (8.5-10.1); Creatinine Clr Calc Pharmacy 66.3 ml/min; Est GFR (African American) 49.7 ml/min; Est GFR (Non-African American) 42.9 ml/min; Total Protein 6.8 gm/dl (6.0-8.3)
--- NOTE | 2022-08-21 11:48 | Hospitalist Progress Note ---
Date of Service August 21, 2022 Assessment & Plan (1) Shock: Plan: 2nd to marked volume depletion from diuretics in the setting of chronic systolic CHF with EF 35-40% resolved dobutamine infusion weaned off appreciate ICU assistance appreciate cardiology assistance no evidence of cardiogenic shock or septic shock cortisol level >10 (2) VERONA (acute kidney injury): Plan: pre-renal/ATN 2nd to #1 improving peak Cr 2.1 today - 1.7 baseline Cr 1.3 bmp in am (3) Gout: Plan: no issues (4) Diabetes mellitus type 2 in obese: Plan: a1c 6% this admission controlled cont basal-bolus insulin (5) Systolic congestive heart failure: Plan: EF 35-40% echo 06/2022 holding all diuretics and coreg due to #1 above likely can resume coreg in am tomorrow pt is compensated on exam today once again (6) Obstructive sleep apnea of adult: Plan: CPAP HS (7) Obesity, morbid, BMI 40.0-49.9: Plan: BMI 46 (8) Ventricular tachycardia: Plan: h/o AICD in place amiodarone (9) Restrictive lung disease: Plan: 2nd to #7 has seen pulmonary in clinic for such no prior h/o obstructive lung disease patient has borderline low O2 sats at rest today he will need formal 2-step at discharge it appears lung function has changed considerably since his COVID illness in 2021 and his RSV infection 06/2022 will need referral back to pulmonary post-d/c -- especially if he needs NC O2 (10) AICD (automatic cardioverter/defibrillator) present: (11) HTN (hypertension): Plan: now with #1 coreg, etc on hold (12) Abnormal LFTs: Plan: total/direct bili chronic liver dysfunction from fatty liver? other etiology? (13) Odynophagia: Plan: present for several months 5-10 seconds after he gets the pain in his esophagus, he then has a cough with raspy voice, and then continues to cough will ask speech therapy to eval will obtain barium swallow - r/o anatomical issues of esophagus, diverticulum, etc will likely need GI as outpatient for consideration of EGD consider empiric PPI Plan ok to transfer from ICU to PCU Admission and Anticipated Discharge Date Admission Date: August 19, 2022 Subjective patient sitting in chair during the visit he feels good he had a good night overall dobutamine has been weaned off during my visit I removed the 2 L NC O2 sats stayed 90-92% in RA he is not on oxygen at home he is on CPAP but does not require blended O2 patient reports he had COVID last fall, followed by RSV in June this year since his infections he reports pain in his esophagus with cold liquids denies dysphagia for solids in addition, shortly after getting pain in the upper portion of the esophagus with drinking fluids, he will have cough/change in voice (raspiness) has never had EGD pt denied he had dizziness with ambulating from bed to chair today Review of Systems Review of Systems: gen - normal appetite today cv - no orthopnea, no chest pain pulm - mild cough at times, especially after drinking fluids; MARIE GI - no nausea/emesis; odynophagia for liquids - upper 1/3 of esophagus Physical Exam Physical Exam: gen - morbidly obese, NAD, sitting in chair comfortably neck - no JVD mouth - MMM; no thrush heart - RRR, s1 s2, no murmur lungs - CTA b/l; poor airation at the bases abd - soft NT ND BS+ ext - trace edema b/l; pulses 2+ b/l skin - severe venous stasis changes/hyperpigmentation of b/l shins Results & Data Results & Data ([facility]) Vital Signs (Past 12 Hours) Vital Signs Temp Pulse Resp BP Pulse Ox O2 Del Method FiO2 08/21/22 11:02 83 17 94 08/21/22 11:02 97/60 L 08/21/22 11:01 86 20 08/21/22 11:01 91/59 L 08/21/22 10:34 82 26 H 08/21/22 10:34 92/65 L 08/21/22 10:30 84 22 08/21/22 10:00 83 17 08/21/22 10:00 102/63 08/21/22 09:37 93/66 L 08/21/22 09:37 83 27 H 92 08/21/22 09:30 81 19 08/21/22 09:00 36.6 C 80 16 08/21/22 09:00 92/60 L 08/21/22 08:30 36.6 C 80 17 08/21/22 08:30 107/62 08/21/22 08:00 36.6 C 83 25 H 08/21/22 07:30 36.5 C 82 22 08/21/22 07:30 111/70 08/21/22 07:14 93/67 L 08/21/22 07:14 36.4 C L 85 25 H 95 08/21/22 07:00 36.5 C 80 20 94 08/21/22 07:00 81/56 L 08/21/22 06:51 97/55 L 08/21/22 06:51 36.5 C 81 18 94 08/21/22 06:30 36.6 C 80 16 93 08/21/22 08:00 80 08/21/22 07:43 Room Air 08/21/22 06:01 36.6 C 80 20 95 08/21/22 05:30 36.5 C 79 21 97/56 L 93 08/21/22 00:00 82 08/21/22 05:00 36.5 C 80 22 91/59 L 97 08/21/22 04:30 36.6 C 80 18 94/55 L 94 08/21/22 04:00 36.6 C 82 15 93/53 L 08/21/22 03:30 36.6 C 80 15 89/60 L 86 L 08/21/22 03:00 36.8 C 80 16 91/49 L 89 L 08/21/22 02:30 36.8 C 80 20 91/53 L 96 08/21/22 02:00 36.9 C 80 24 87/54 L 92 08/21/22 01:30 37.0 C 80 16 95/53 L 93 08/21/22 01:00 37.1 C 80 20 95/61 L 93 08/21/22 01:00 95/61 L 08/21/22 00:30 37.1 C 82 25 H 91/68 L 93 08/21/22 00:00 37.1 C 84 19 104/58 L 86 L 08/21/22 00:32 82 22 95 25 Laboratory Results Laboratory Results - last 24 hr 08/20/22 08/20/22 08/21/22 16:35 20:18 07:26 Sodium Potassium Chloride Carbon Dioxide Anion Gap BUN Creatinine Est Cr Clr Drug Dosing Est GFR ( Amer) Est GFR (Non-Af Amer) BUN/Creatinine Ratio Glucose POC Glucose 120 H 153 H 102 H Calcium Total Bilirubin Direct Bilirubin AST ALT Alkaline Phosphatase Total Protein Albumin 08/21/22 08/21/22 10:04 11:23 Sodium 135 L Potassium 4.7 D Chloride 101 Carbon Dioxide 31 Anion Gap 3 BUN 61 H Creatinine 1.74 H D Est Cr Clr Drug Dosing 66.3 Est GFR ( Amer) 49.7 Est GFR (Non-Af Amer) 42.9 BUN/Creatinine Ratio 35.1 H Glucose 144 H POC Glucose 123 H Calcium 9.8 Total Bilirubin 3.1 H Direct Bilirubin 1.2 H AST 16 ALT 13 Alkaline Phosphatase 66 Total Protein 6.8 Albumin 3.7 PG Care Time/CCT Total # of Minutes Spent Total Time Spent with Patient: Total time spent is greater than 50% in coordination of care (as documented) at patient's floor/unit and/or counseling patient: Coding Level of Care Code 51480 SUB INP/OBS CARE 3/50MIN Diagnoses Shock R57.9 VERONA (acute kidney injury) N17.9 Gout M10.9 Diabetes mellitus type 2 in obese E11.69; E66.9 Systolic congestive heart failure I50.20 Heart failure chronicity: unspecified Obstructive sleep apnea of adult G47.33 Obesity, morbid, BMI 40.0-49.9 E66.01 Ventricular tachycardia I47.2 Restrictive lung disease J98.4 AICD (automatic cardioverter/defibrillator) present Z95.810 HTN (hypertension) I10 Abnormal LFTs R79.89 Odynophagia R13.10 (5) Systolic congestive heart failure Heart failure chronicity: unspecified Qualified Code(s): I50.20 - Unspecified systolic (congestive) heart failure
--- NOTE | 2022-08-21 14:26 | Electrocardiogram Report ---
Test Reason : Blood Pressure : / mmHG Vent. Rate : 080 BPM Atrial Rate : 080 BPM P-R Int : 280 ms QRS Dur : 142 ms QT Int : 444 ms P-R-T Axes : 092 090 -13 degrees QTc Int : 512 ms Atrial-paced rhythm with prolonged AV conduction Rightward axis Non-specific intra-ventricular conduction block Abnormal ECG When compared with ECG of 19-AUG-2022 12:59, Electronic atrial pacemaker has replaced Electronic ventricular pacemaker Confirmed by Roberto Carlos Rubalcava ([id number]) on 08/21/2022 2:25:45 PM Referred By: REFERRED SELF Confirmed By:Roberto Carlos Rubalcava
[2022-08-21] MEDS: ATORVASTATIN 40 MG TAB PO SCH (20:50)
[2022-08-22] MEDS: HEPARIN SOD 5,000 UNIT/0.5 ML VIAL SQ SCH ×3 (05:35→20:33)
--- NOTE | 2022-08-22 09:11 | Fluoroscopy Report ---
FL barium swallow CLINICAL HISTORY: 57 years-old Male with odynophagia upper 1/3 of esophagus; aspiration. Chronic dys phagia TECHNIQUE: Barium contrast and effervescent crystals were administered to the patient under fluorosco pic examination. Multiple images were obtained and submitted for review. FLUOROSCOPY TIME: 0.8 minutes FLUOROSCOPY IMAGES: 108 Ka,r: 116.37 mGy COMPARISON: None. FINDINGS: During deglutition, contrast material flowed freely through the cervical esophagus. No filling defec t or mucosal abnormality is identified. No abnormal stricturing or mass effect is seen. The mid to distal esophagus is well coated and distended. No abnormal stricturing or mucosal abnormality is enzo ntified. No significant reflux or hiatal hernia was demonstrated during the exam. Minimal distal eso phageal dysmotility. The GE junction is normal in appearance. Partially imaged pacer/AICD leads. The heart appears enlarged. IMPRESSION: Minimal distal esophageal dysmotility with otherwise unremarkable esophagram. ACT 112: Negative or not required by law. The above report was generated using voice recognition software. It may contain grammatical, syntax o r spelling errors. Electronically signed by: Armaan Sher M.D. 08/22/2022 9:10 AM
[2022-08-22] MEDS: AMIODARONE 200 MG TAB PO SCH (09:31)
[2022-08-22] MEDS: ASPIRIN 81 MG ECTAB PO SCH (09:31)
[2022-08-22] MEDS: allopurinoL 300 MG TAB PO SCH (09:31)
[2022-08-22] MEDS: carvediloL 3.125 MG TAB PO SCH ×2 (09:31→20:33)
[2022-08-22] MEDS: allopurinoL 100 MG TAB PO SCH (09:32)
[2022-08-22] MEDS: FLUTICASONE/VILANTEROL 200/25MCG 14 PUFFS/INHALER INH SCH (09:32)
[2022-08-22] MEDS: LANTUS PER UNIT CHARGE SQ SCH ×2 (09:50→20:34)
[2022-08-22] MEDS: INSULIN ASPART PER UNIT SC SCH ×4 (09:50→20:22)
[2022-08-22 10:17] LABS: BUN Creatinine Ratio 35.9 (10-20); Calcium 9.6 mg/dl (8.5-10.1); Creatinine Clr Calc Pharmacy 75.4 ml/min; Est GFR (African American) 58.1 ml/min; Est GFR (Non-African American) 50.1 ml/min; Potassium 4.4 mmol/L (3.5-5.1)
[2022-08-22] MEDS: PANTOprazole 40 MG TAB PO SCH (11:04)
[2022-08-22] MEDS ORDERED: BUMETANIDE 1 MG TAB PO STA (15:56)
--- NOTE | 2022-08-22 16:01 | Hospitalist Progress Note ---
Date of Service August 22, 2022 Assessment & Plan (1) Shock: Plan: 2nd to marked volume depletion from diuretics in the setting of chronic systolic CHF with EF 35-40% resolved required Tx to ICU for dobutamine infusion dobutamine weaned off 08/20/22 PM appreciate ICU assistance appreciate cardiology assistance no evidence of cardiogenic shock or septic shock cortisol level >10 coreg resumed at low-dose this am (2) VERONA (acute kidney injury): Plan: pre-renal/ATN 2nd to #1 improving peak Cr 2.1 today - 1.5 baseline Cr 1.3 bmp in am since diuretics are being resumed (3) Gout: Plan: no issues cont allopurinol (4) Diabetes mellitus type 2 in obese: Plan: a1c 6% this admission controlled cont basal-bolus insulin (5) Systolic congestive heart failure: Plan: EF 35-40% echo 06/2022 he has LE edema, but otherwise looks compensated weights in computer are all up/down; dry weight uncertain, but suspect he is 5-7 pounds above his usual weight resume bumex today - 2mg daily; cardiology recommends using once daily dosing at discharge rather than BID resume coreg today - 3.125mg BID if BPs remain stable then titrate to 6.25mg of coreg BID starting tomorrow cont to hold Entresto for now cont to hold aldactone (6) Obstructive sleep apnea of adult: Plan: CPAP HS follows [place] Alvarez[place] [facility] [place] (7) Obesity, morbid, BMI 40.0-49.9: Plan: BMI 46 (8) Ventricular tachycardia: Plan: h/o AICD in place cont amiodarone (9) Restrictive lung disease: Plan: 2nd to #7 has seen pulmonary in clinic for such no prior h/o obstructive lung disease patient continues with mild NC O2 requirement, 2 L he will need formal 2-step at discharge it appears lung function has changed considerably since his COVID illness in 2021 and his RSV infection 06/2022 will need referral back to pulmonary post-d/c - sees Carlos Steele MD in Pulm clinic 09/15/22 for his respiratory issues (10) AICD (automatic cardioverter/defibrillator) present: Plan: no recent firings (11) HTN (hypertension): Plan: shock resolved resume coreg 3.125mg BID today resume bumex 2mg daily today (12) Abnormal LFTs: Plan: total/direct bili only -- chronic liver dysfunction from fatty liver? other etiology? (13) Odynophagia: Plan: present for several months 5-10 seconds after he gets the pain in his esophagus, he then has a cough with raspy voice, and then continues to cough appreciate speech therapy eval - no major modification in diet; ENT outpatient eval advised barium swallow relatively normal started PPI - consider Rx for 1 month consider outpatient GI referral for consideration of EGD Plan progressing nicely BMP am home tomorrow?? again needs 2-step prior to discharge PPI at discharge GI referral at discharge ENT referral at discharge f/u cardiology post-discharge (within 1 week) has scheduled appt with pulmonary 09/15/22 Admission and Anticipated Discharge Date Admission Date: August 19, 2022 Subjective tele overnight - pacing he feels good he is concerned about worsening LE edema, however he denies orthopnea denies dyspnea at rest minimal cough (chronic) barium swallow today wnl speech therapy eval - no concerns although they did recommend ENT eval post discharge patient otherwise feeling good and hopes to d/c home soon he continues to require NC O2 even at rest Review of Systems Review of Systems: gen - no fevers, good appetite cv - no chest pain GI - no abd pain/N/V pulm - wheezing, no sputum, minimal cough, no dyspnea at rest Physical Exam Physical Exam: gen - morbidly obese, NAD, lying flat in bed comfortably neck - no JVD mouth - MMM; no thrush heart - RRR, s1 s2, no murmur lungs - CTA b/l; poor airation at the bases (unchanged) abd - soft NT ND BS+ ext - 1-2+ edema b/l; pulses 2+ b/l skin - severe venous stasis changes/hyperpigmentation of b/l shins but no cellulitis Results & Data Results & Data ([facility]) Vital Signs (Past 12 Hours) Vital Signs Temp Pulse Pulse Resp BP Pulse Ox O2 Del Method 08/22/22 15:26 82 08/22/22 14:06 83 16 101/68 93 Room Air 08/22/22 12:27 36.8 C 80 18 91/61 L 96 Nasal Cannula 08/22/22 07:55 80 08/22/22 07:35 36.8 C 87 19 105/73 96 Nasal Cannula O2 Flow Rate 08/22/22 15:26 08/22/22 14:06 08/22/22 12:27 2.0 08/22/22 07:55 08/22/22 07:35 2.0 Laboratory Results Laboratory Results - last 48 hr 08/21/22 08/21/22 08/21/22 07:26 10:04 11:23 Sodium 135 L Potassium 4.7 D Chloride 101 Carbon Dioxide 31 Anion Gap 3 BUN 61 H Creatinine 1.74 H D Est Cr Clr Drug Dosing 66.3 Est GFR ( Amer) 49.7 Est GFR (Non-Af Amer) 42.9 BUN/Creatinine Ratio 35.1 H Glucose 144 H POC Glucose 102 H 123 H Calcium 9.8 Total Bilirubin 3.1 H Direct Bilirubin 1.2 H AST 16 ALT 13 Alkaline Phosphatase 66 Total Protein 6.8 Albumin 3.7 08/21/22 08/21/22 08/22/22 16:33 20:50 07:30 Sodium Potassium Chloride Carbon Dioxide Anion Gap BUN Creatinine Est Cr Clr Drug Dosing Est GFR ( Amer) Est GFR (Non-Af Amer) BUN/Creatinine Ratio Glucose POC Glucose 101 H 107 H 88 Calcium Total Bilirubin Direct Bilirubin AST ALT Alkaline Phosphatase Total Protein Albumin 08/22/22 08/22/22 08/22/22 09:26 11:20 16:18 Sodium 135 L Potassium 4.4 Chloride 101 Carbon Dioxide 29 Anion Gap 5 BUN 55 H Creatinine 1.53 H Est Cr Clr Drug Dosing 75.4 Est GFR ( Amer) 58.1 Est GFR (Non-Af Amer) 50.1 BUN/Creatinine Ratio 35.9 H Glucose 136 H POC Glucose 123 H 96 Calcium 9.6 Total Bilirubin Direct Bilirubin AST ALT Alkaline Phosphatase Total Protein Albumin 08/22/22 20:02 Sodium Potassium Chloride Carbon Dioxide Anion Gap BUN Creatinine Est Cr Clr Drug Dosing Est GFR ( Amer) Est GFR (Non-Af Amer) BUN/Creatinine Ratio Glucose POC Glucose 120 H Calcium Total Bilirubin Direct Bilirubin AST ALT Alkaline Phosphatase Total Protein Albumin Diagnostic Findings Barium Swallow X-Ray 08/22/22 08:30 FL barium swallow CLINICAL HISTORY: 57 years-old Male with odynophagia upper 1/3 of esophagus; aspiration. Chronic dysphagia TECHNIQUE: Barium contrast and effervescent crystals were administered to the patient under fluoroscopic examination. Multiple images were obtained and submitted for review. FLUOROSCOPY TIME: 0.8 minutes FLUOROSCOPY IMAGES: 108 Ka,r: 116.37 mGy COMPARISON: None. FINDINGS: During deglutition, contrast material flowed freely through the cervical esophagus. No filling defect or mucosal abnormality is identified. No abnormal stricturing or mass effect is seen. The mid to distal esophagus is well coated and distended. No abnormal stricturing or mucosal abnormality is identified. No significant reflux or hiatal hernia was demonstrated during the exam. Minimal distal esophageal dysmotility. The GE junction is normal in appearance. Partially imaged pacer/AICD leads. The heart appears enlarged. IMPRESSION: Minimal distal esophageal dysmotility with otherwise unremarkable esophagram. ACT 112: Negative or not required by law. The above report was generated using voice recognition software. It may contain grammatical, syntax or spelling errors. Electronically signed by: Armaan Sher M.D. 08/22/2022 9:10 AM PG Care Time/CCT Total # of Minutes Spent Total Time Spent with Patient: Total time spent is greater than 50% in coordination of care (as documented) at patient's floor/unit and/or counseling patient: Coding Level of Care Code 11836 SUB INP/OBS CARE 2/35MIN Diagnoses Shock R57.9 VERONA (acute kidney injury) N17.9 Gout M10.9 Diabetes mellitus type 2 in obese E11.69; E66.9 Systolic congestive heart failure I50.20 Heart failure chronicity: unspecified Obstructive sleep apnea of adult G47.33 Obesity, morbid, BMI 40.0-49.9 E66.01 Ventricular tachycardia I47.2 Restrictive lung disease J98.4 AICD (automatic cardioverter/defibrillator) present Z95.810 HTN (hypertension) I10 Abnormal LFTs R79.89 Odynophagia R13.10 (5) Systolic congestive heart failure Heart failure chronicity: unspecified Qualified Code(s): I50.20 - Unspecified systolic (congestive) heart failure
[2022-08-22] MEDS: ATORVASTATIN 40 MG TAB PO SCH (20:33)
[2022-08-23] MEDS: HEPARIN SOD 5,000 UNIT/0.5 ML VIAL SQ SCH ×3 (05:49→21:37)
[2022-08-23 06:30] LABS: BUN Creatinine Ratio 33.3 (10-20); Calcium 9.4 mg/dl (8.5-10.1); Creatinine Clr Calc Pharmacy 73.6 ml/min; Est GFR (African American) 55.4 ml/min; Est GFR (Non-African American) 47.8 ml/min; Potassium 3.9 mmol/L (3.5-5.1)
[2022-08-23] MEDS: LANTUS PER UNIT CHARGE SQ SCH ×2 (09:00→21:36)
[2022-08-23] MEDS: INSULIN ASPART PER UNIT SC SCH ×4 (09:00→21:37)
[2022-08-23] MEDS: FLUTICASONE/VILANTEROL 200/25MCG 14 PUFFS/INHALER INH SCH (09:04)
[2022-08-23] MEDS: PANTOprazole 40 MG TAB PO SCH (09:06)
[2022-08-23] MEDS: allopurinoL 100 MG TAB PO SCH (09:06)
[2022-08-23] MEDS: ASPIRIN 81 MG ECTAB PO SCH (09:06)
[2022-08-23] MEDS: AMIODARONE 200 MG TAB PO SCH (09:06)
[2022-08-23] MEDS: allopurinoL 300 MG TAB PO SCH (09:06)
[2022-08-23] MEDS: BUMETANIDE 1 MG TAB PO SCH (09:42)
[2022-08-23] MEDS: carvediloL 6.25 MG TAB PO SCH ×2 (09:42→20:02)
--- NOTE | 2022-08-23 10:37 | Electrocardiogram Report ---
Test Reason : Blood Pressure : / mmHG Vent. Rate : 082 BPM Atrial Rate : 082 BPM P-R Int : 284 ms QRS Dur : 138 ms QT Int : 542 ms P-R-T Axes : 000 097 055 degrees QTc Int : 633 ms Atrial-paced rhythm with prolonged AV conduction Rightward axis Non-specific intra-ventricular conduction block Abnormal ECG When compared with ECG of 20-AUG-2022 12:30, No significant change Confirmed by Roberto Carlos Rubalcava ([id number]) on 08/23/2022 10:37:27 AM Referred By: REFERRED SELF Confirmed By:Roberto Carlos Rubalcava
--- NOTE | 2022-08-23 13:19 | Cardiology Progress Note ---
Date of Service August 23, 2022 Assessment & Plan (1) Cardiomyopathy: (2) Orthostatic hypotension: (3) VERONA (acute kidney injury): (4) AICD (automatic cardioverter/defibrillator) present: Plan As noted, transient episode of chest discomfort/lightheadedness this morning, no ECG changes or dysrhythmia on telemetry. He was very comfortable at the time of my evaluation but did appear mildly hypervolemic. BP has been improving off vasoactive medications temporarily and with diuretic held temporarily. Agree with restarting bumetanide at 2 mg daily (rather than twice daily), but would reassess later today and administer second diuretic dose if he remains volume overloaded. Between carvedilol and Entresto, debatable as to first choice of vasoactive medication to restart. Will discuss with Dr. Gastelum at [facility], she follows him from a heart failure standpoint. Since carvedilol was already started at low- dose and he is tolerating, at this point would consider adding Entresto while closely monitoring BP without further upward titration of carvedilol. Would restart spironolactone, not likely to have major hypotensive effect and does have significant metabolic benefits. Admission and Anticipated Discharge Date Admission Date: August 19, 2022 Subjective [place] well overnight. Did have very transient chest discomfort/lightheadedness around 9 AM while sitting quietly, telemetry and ECG benign. Input/output -2745 mL overnight. Weight down 1 pound. Physical Exam Physical Exam: No distress. Weight down 1 pound. BP 115/80 mmHg. Pulse 80 bpm overnight. Skin: no ecchymoses or generalized lesions. HEENT: unremarkable. Neck: Jugular venous pulse retirement to the angle of the jaw at 60 degrees, no carotid bruits. Lungs: clear bilaterally. Cardiac: regular rhythm, normal S1 and S2, no murmur or gallop. Abdomen: benign. Extremities: 2+ pretibial edema (less than his usual, per patient), pulses intact. Neurologic: normal affect and conversation, nonfocal. Results & Data ([facility]) Vital Signs (Past 12 Hours) Vital Signs Temp Pulse Pulse Resp BP Pulse Ox O2 Del Method 08/23/22 11:30 98.6 F 80 19 115/80 91 Nasal Cannula 08/23/22 08:14 98.1 F 80 19 114/74 94 Nasal Cannula 08/23/22 07:41 61 08/23/22 03:28 88 20 93 08/23/22 03:01 97.5 F L 82 22 111/79 97 BiPAP O2 Flow Rate FiO2 08/23/22 11:30 2.0 08/23/22 08:14 2.0 08/23/22 07:41 08/23/22 03:28 25 08/23/22 03:01 Laboratory Results Normal electrolytes, BUN 53, creatinine 1.59 (55/1.53 yesterday). Diagnostic Findings ECG today after episode of chest discomfort showed atrial pacing with prolonged AV conduction and nonspecific interventricular conduction block, no ST abnormalities. PG Care Time/CCT Total # of Minutes Spent Total Time Spent with Patient: Total time spent is greater than 50% in coordination of care (as documented) at patient's floor/unit and/or counseling patient: Coding Level of Care Code 64986 SUB INP/OBS CARE 3/50MIN Diagnoses Cardiomyopathy I42.9 Orthostatic hypotension I95.1 VERONA (acute kidney injury) N17.9 AICD (automatic cardioverter/defibrillator) present Z95.810
--- NOTE | 2022-08-23 15:41 | Hospitalist Progress Note ---
Date of Service August 23, 2022 Assessment & Plan (1) Shock: Plan: 2nd to marked volume depletion from diuretics in the setting of chronic systolic CHF with EF 35-40% Now resolved required Tx to ICU for dobutamine infusion dobutamine weaned off 08/20/22 PM (2) VERONA (acute kidney injury): Plan: Could be due to diuresis Cr 1.59 today Dose of Bumex has been reduced to 2mg daily Monitor (3) Gout: Plan: no issues cont allopurinol (4) Diabetes mellitus type 2 in obese: Plan: a1c 6% this admission controlled cont basal-bolus insulin (5) Systolic congestive heart failure: Plan: Acute on chronic HF EF 35-40% echo 06/2022 he has LE edema, but otherwise looks compensated In negative fluid balance, 2.5L in 24 hrs Bumex now 2mg daily, was BID Increase Coreg to 6.25 BID from 3.125 Will also resume Aldactone cont to hold Entresto for now (6) Obstructive sleep apnea of adult: Plan: CPAP HS follows with Dr Alvarez [facility] [place] [facility] (7) Obesity, morbid, BMI 40.0-49.9: Plan: BMI 46 (8) Ventricular tachycardia: Plan: h/o AICD in place cont amiodarone (9) Restrictive lung disease: Plan: 2nd to #7 has seen pulmonary in clinic for such no prior h/o obstructive lung disease patient continues with mild NC O2 requirement, 2 L he will need formal 2-step at discharge it appears lung function has changed considerably since his COVID illness in 2021 and his RSV infection 06/2022 will need referral back to pulmonary post-d/c - sees Carlos Steele MD in Pulm clinic 09/15/22 for his respiratory issues (10) AICD (automatic cardioverter/defibrillator) present: Plan: no recent firings (11) HTN (hypertension): Plan: shock resolved resume coreg 3.125mg BID today resume bumex 2mg daily today (12) Abnormal LFTs: Plan: total/direct bili only -- chronic liver dysfunction from fatty liver? other etiology? (13) Odynophagia: Plan: present for several months 5-10 seconds after he gets the pain in his esophagus, he then has a cough with raspy voice, and then continues to cough appreciate speech therapy eval - no major modification in diet; ENT outpatient eval advised barium swallow relatively normal started PPI - consider Rx for 1 month consider outpatient GI referral for consideration of EGD Plan Hopefully d/c in the net 24 hrs again needs 2-step prior to discharge PPI at discharge GI referral at discharge ENT referral at discharge f/u cardiology post-discharge (within 1 week) has scheduled appt with pulmonary 09/15/22 Admission and Anticipated Discharge Date Admission Date: August 19, 2022 Subjective patient seen and examined, says sob is better Review of Systems Review of Systems: All systems reviewed are negative, apart from the ones contained in the history. Physical Exam Physical Exam: The patient is awake, alert and oriented 3, well developed and well nourished, normocephalic and atraumatic, lying in bed and in no acute distress. HEENT--PERRL, EOMI, mucous membranes and oropharynx mildly dry Neck--supple. No JVD. No bruits. Thyroid normal, trachea midline, no adenopathy. Heart--normal S1 and S2. No murmurs, rubs or gallops. Lungs--clear bilaterally, no respiratory distress, no accessory muscle use. Abdomen--normal bowel sounds and soft. Mild epigastric and left sided abdominal pain Extremities--bilateral lower extremity edema Dermatologic--normal skin turgor, normal color, no abnormal lymph nodes, no rash. Neurologic--cranial nerves II through XII grossly intact. Rheumatologic--normal range of motion. Psychiatric--normal affect. Results & Data Results & Data ([facility]) Vital Signs (Past 12 Hours) Vital Signs Temp Pulse Pulse Resp BP Pulse Ox O2 Del Method 08/23/22 14:57 80 08/23/22 11:30 98.6 F 80 19 115/80 91 Nasal Cannula 08/23/22 08:14 98.1 F 80 19 114/74 94 Nasal Cannula 08/23/22 07:41 61 O2 Flow Rate 08/23/22 14:57 08/23/22 11:30 2.0 08/23/22 08:14 2.0 08/23/22 07:41 PG Care Time/CCT Total # of Minutes Spent Total Time Spent with Patient: Total time spent is greater than 50% in coordination of care (as documented) at patient's floor/unit and/or counseling patient: Coding Level of Care Code 84471 SUB INP/OBS CARE 2/35MIN Diagnoses Shock R57.9 VERONA (acute kidney injury) N17.9 Gout M10.9 Diabetes mellitus type 2 in obese E11.69; E66.9 Systolic congestive heart failure I50.20 Heart failure chronicity: unspecified Obstructive sleep apnea of adult G47.33 Obesity, morbid, BMI 40.0-49.9 E66.01 Ventricular tachycardia I47.2 Restrictive lung disease J98.4 AICD (automatic cardioverter/defibrillator) present Z95.810 HTN (hypertension) I10 Abnormal LFTs R79.89 Odynophagia R13.10 Time Spent (min) 35 (5) Systolic congestive heart failure Heart failure chronicity: unspecified Qualified Code(s): I50.20 - Unspecified systolic (congestive) heart failure
[2022-08-23] MEDS: ATORVASTATIN 40 MG TAB PO SCH (20:02)
[2022-08-24] MEDS: HEPARIN SOD 5,000 UNIT/0.5 ML VIAL SQ SCH (05:24)
[2022-08-24 07:10] LABS: BUN Creatinine Ratio 33.3 (10-20); Calcium 9.6 mg/dl (8.5-10.1); Creatinine Clr Calc Pharmacy 79.2 ml/min; Est GFR (African American) 60.9 ml/min; Est GFR (Non-African American) 52.6 ml/min; Potassium 3.7 mmol/L (3.5-5.1)
[2022-08-24 08:11] VITALS: TEMP 97.9
[2022-08-24] MEDS: INSULIN ASPART PER UNIT SC SCH ×2 (08:31→13:06)
[2022-08-24] MEDS: LANTUS PER UNIT CHARGE SQ SCH (08:32)
[2022-08-24] MEDS: FLUTICASONE/VILANTEROL 200/25MCG 14 PUFFS/INHALER INH SCH (08:33)
[2022-08-24] MEDS: ASPIRIN 81 MG ECTAB PO SCH (08:34)
[2022-08-24] MEDS: BUMETANIDE 1 MG TAB PO SCH (08:34)
[2022-08-24] MEDS: AMIODARONE 200 MG TAB PO SCH (08:34)
[2022-08-24] MEDS: allopurinoL 100 MG TAB PO SCH (08:34)
[2022-08-24] MEDS: allopurinoL 300 MG TAB PO SCH (08:34)
[2022-08-24] MEDS: carvediloL 6.25 MG TAB PO SCH (08:35)
[2022-08-24] MEDS: PANTOprazole 40 MG TAB PO SCH (08:36)
[2022-08-24] MEDS ORDERED: SPIRONOLACTONE 12.5 MG TAB PO SCH (09:00)
[2022-08-24 11:59] VITALS: BP 120/83; PULSE 80; O2SAT 91
--- NOTE | 2022-08-24 13:13 | Discharge Summary ---
Date of Service August 24, 2022 Admission HPI Per Admitting Provider Lenard Mcdonnell is a 57-year-old male with a past medical history of V. tach, congestive heart failure, AICD, cardiomyopathy, DM 2, COTY, hypertension, and GI bleed who presents to the emergency department with hypotension and dizziness. Patient does have history of heart failure with pacer and AICD placement. Has had hypotension for in setting of diuretic use, these were restarted along with Entresto 2 weeks ago, for the last 4 days patient has had increased global weakness making it difficult to ambulate, low blood pressure, and dizziness. Blood pressure in the ER 70/47. No chest pain/chest pressure. No fever/chills/sweats. At bedside assessment he is not short of breath but is lightheaded and a little bit dizzy. He feels he is felt generally poor and weaker since this morning. Trendelenburg position do es make him feel lightheaded and slightly short of breath. No nausea/vomiting/diarrhea/constipation. No leukocytosis Hemoglobin 11.0 Sodium 134 Potassium normal Creatinine baseline around 1.32.0, currently 2.17 on admission with ratio of 38 TSH is mildly elevated with normal free T4 COVID is negative CXR: No acute disease, cardiomegaly noted, resolution of prior pulmonary edema. No evidence of pleural effusion or current edema Admitting EKG: Ventricular paced rhythm. High-sensitivity troponin: 16.6 Received 1250cc NSS while in ER Medication review: - Took extra dose of lasix for slight weight gain yesterday Is currently taking carvedilol, spironolactone, Entresto, Bumex all of which she took this morning. Took his blood pressure slightly after and was systolic only in the 80s Medical History: Reviewed Medications: Reviewed Surgical History: Reviewed Allergies: Reviewed Social History:Reviewed Code Status:Full Principal Diagnosis Acute CHF exacerbation Discharge Exam The patient is awake, alert and oriented 3, well developed and well nourished, normocephalic and atraumatic, lying in bed and in no acute distress. HEENT--PERRL, EOMI, mucous membranes and oropharynx mildly dry Neck--supple. No JVD. No bruits. Thyroid normal, trachea midline, no adenopathy. Heart--normal S1 and S2. No murmurs, rubs or gallops. Lungs--clear bilaterally, no respiratory distress, no accessory muscle use. Abdomen--normal bowel sounds and soft. Mild epigastric and left sided abdominal pain Extremities--bilateral lower extremity edema Dermatologic--normal skin turgor, normal color, no abnormal lymph nodes, no rash. Neurologic--cranial nerves II through XII grossly intact. Rheumatologic--normal range of motion. Psychiatric--normal affect. Discharge Data Allergies Allergy/AdvReac Type Severity Reaction Status Date / Time mexiletine AdvReac Intermediate MADE ME Verified 08/19/22 15:56 SICK Consultations 08/19/22 15:11 ED Decision to Admit Stat 08/19/22 18:59 Consult Environmental Services Coordinator Routine 08/19/22 19:55 Consult Environmental Services Coordinator Routine 08/20/22 07:03 Consult Cardiology Routine Ordered Studies 08/22/22 08:30 FL barium swallow Routine Hospital Course (1) Shock: 2nd to marked volume depletion from diuretics in the setting of chronic systolic CHF with EF 35-40% Now resolved required Tx to ICU for dobutamine infusion dobutamine weaned off 08/20/22 PM (2) VERONA (acute kidney injury): Could be due to diuresis Cr 1.47 today Dose of Bumex has been reduced to 2mg daily Monitor (3) Gout: no issues cont allopurinol (4) Diabetes mellitus type 2 in obese: a1c 6% this admission controlled cont basal-bolus insulin (5) Systolic congestive heart failure: Acute on chronic HF EF 35-40% echo 06/2022 he has LE edema, but otherwise looks compensated In negative fluid balance, 2.5L in 24 hrs Bumex now 2mg daily, was BID Increase Coreg to 6.25 BID from 3.125 Will also resume Aldactone cont to hold Entresto for now (6) Obstructive sleep apnea of adult: CPAP HS follows with Dr Alvarez, [facility] (7) Obesity, morbid, BMI 40.0-49.9: BMI 46 (8) Ventricular tachycardia: h/o AICD in place cont amiodarone (9) Restrictive lung disease: 2nd to #7 has seen pulmonary in clinic for such no prior h/o obstructive lung disease patient continues with mild NC O2 requirement, 2 L it appears lung function has changed considerably since his COVID illness in 2021 and his RSV infection 06/2022 will need referral back to pulmonary post-d/c - sees Carlos Steele MD in Pulm clinic 09/15/22 for his respiratory issues (10) AICD (automatic cardioverter/defibrillator) present: no recent firings (11) HTN (hypertension): shock resolved resume coreg 3.125mg BID today resume bumex 2mg daily today (12) Abnormal LFTs: total/direct bili only -- chronic liver dysfunction from fatty liver? other etiology? (13) Odynophagia: present for several months 5-10 seconds after he gets the pain in his esophagus, he then has a cough with raspy voice, and then continues to cough appreciate speech therapy eval - no major modification in diet; ENT outpatient eval advised barium swallow relatively normal started PPI - consider Rx for 1 month consider outpatient GI referral for consideration of EGD Plan d/c home PPI at discharge GI referral at discharge ENT referral at discharge f/u cardiology post-discharge (within 1 week) has scheduled appt with pulmonary 09/15/22 Total Time Total Time Spent Total Time Spent (In Minutes): 35 Discharge Plan Discharge Items Patient Disposition: Home - Self-Care Reason For Visit: HYPOTENSION, VERONA Discharge Diagnosis: Acute on chronic CHF exacerbation Condition on Discharge: Fair Activity: Resume your previous activity Non-emergency contact: Primary Care Provider, [employer] 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 and [employer] Call non-emergency contact if: you have any medication questions Follow-up/Referrals: Tamar Boss [Primary Care Provider] - Diet: Regular Addtl Attending Provider Instructions: Please make appointment to see your orthodontic band maker tomorrow and also follow up with your [employer]or [employer] at the end of the month Pending Studies at Discharge: No Stand-Alone Forms: My [employer], Smoking Cessation Medications and DC Order Prescriptions: New carvedilol 6.25 mg Tablet 6.25 mg PO BID 30 Days Qty: 60 0RF spironolactone 25 mg Tablet 12.5 mg PO DAILY 30 Days Qty: 15 0RF bumetanide 1 mg Tablet 2 mg PO QAM 30 Days Qty: 60 0RF Continued (DME) CPAP Supplies Misc See Rx Instructions .MEDSUPPLY Qty: 1 0RF Rx Instructions: CPAP supplies. G47.33 (DME) Auto Titrating CPAP Misc See Rx Instructions .MEDSUPPLY Qty: 1 0RF Rx Instructions: Auto PAP with 10-20mm H20. Lifetime usage. G47.33 spironolactone 25 mg tablet 12.5 mg PO DAILY Qty: 45 3RF cholecalciferol (vitamin D3) 50 mcg (2,000 unit) capsule 50 mcg PO DAILY omega-3 fatty acids 1,250 mg capsule 1,250 mg PO DAILY multivitamin Tablet 1 tab PO DAILY albuterol sulfate 90 mcg/actuation HFA aerosol inhaler 2 puff INHALATION QID PRN (Reason: Shortness Of Breath Or Wheezing) fluticasone furoate-vilanterol [Breo Ellipta] 200-25 mcg/dose blister with device 1 inh inhalation DAILY Qty: 60 0RF allopurinol 100 mg tablet 100 mg PO DAILY Rx Instructions: TOTAL DOSE 400 MG--TAKES WITH 300 MG TAB. atorvastatin 80 mg tablet 80 mg PO HS metolazone 5 mg tablet 5 mg PO DAILY PRN (Reason: WT GAIN) Rx Instructions: take with Bumetanide allopurinol 300 mg tablet 300 mg PO DAILY Rx Instructions: TOTAL DOSE 400 MG-- TAKES WITH 100 MG TAB. aspirin 81 mg Tablet,Delayed Release (Dr/Ec) 81 mg PO QAM zinc acetate 25 mg (zinc) Capsule 0 mg PO DAILY Rx Instructions: PT UNSURE OF STRENGTH potassium chloride [Klor-Con M20] 20 mEq tablet,ER particles/crystals 40 meq PO BID Qty: 120 0RF (DME) blood-glucose meter [OneTouch Verio Meter] [facility] See Rx Instructions .Route Qty: 1 0RF Rx Instructions: As directed (DME) OneTouch Verio test strips Strip See Rx Instructions .Route Qty: 100 0RF Rx Instructions: As directed once daily (DME) lancets [OneTouch Delica Lancets] 33 gauge [facility] See Rx Instructions .Route Qty: 100 0RF Rx Instructions: As directed once daily hydrocodone-homatropine [Hycodan] 5-1.5 mg/5 mL (5 mL) syrup 5 ml PO Q6H PRN (Reason: cough) Qty: 200 0RF amiodarone 400 mg tablet 400 mg PO QAM Discontinued carvedilol 6.25 mg tablet 12.5 mg PO BID Qty: 360 3RF bumetanide 2 mg tablet 2 mg PO BID Qty: 60 3RF Entresto 24-26 mg tablet 1 tab PO BID Discharge Orders: Discharge Order (Routine); Ordered 08/24/22 Ordered By: Abby Baldwin Discharge Order- CHF (Routine); Ordered 08/24/22 Ordered By: Abby Baldwin Admission Data Admit Date/Time: 08/19/22 16:14 Attending Provider: Abby Baldwin Admit Provider: Twin Khalil Primary Care Provider: Tamar Boss Other Providers: [facility] ; Twin Khalil ; Roberto Carlos Rubalcava Other Interventions: Discharge Summary Assessment (RN) Last Done: 08/24/22 12:50 Coding Level of Care Code 89226 INP/OBS DISCH >30 MIN Diagnoses Shock R57.9 VERONA (acute kidney injury) N17.9 Gout M10.9 Diabetes mellitus type 2 in obese E11.69; E66.9 Systolic congestive heart failure I50.20 Heart failure chronicity: unspecified Obstructive sleep apnea of adult G47.33 Obesity, morbid, BMI 40.0-49.9 E66.01 Ventricular tachycardia I47.2 Restrictive lung disease J98.4 AICD (automatic cardioverter/defibrillator) present Z95.810 HTN (hypertension) I10 Abnormal LFTs R79.89 Odynophagia R13.10 Time Spent (min) 35
== END 2022-08-24 13:46 | disposition home or self-care (01) | DRG 291 ==
LOC: ED 12:48 → 1E 16:14 → SUATTDRO 16:14 → 1E 19:35 → 2E 08-21 11:45

== ENCOUNTER 2022-09-20 15:34 | Inpatient (IN) ==
--- NOTE | 2022-09-20 15:45 | ED Triage Note ---
Date of Service September 20, 2022 History of Present Illness This patient was briefly evaluated while in triage. An abbreviated physical exam was performed. 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 6 pounds over past 4 days. I ncrease in dyspnea. No chest pain. Had diuretic adjustments recently due to hypotension. Physical Exam CONSTITUTIONAL: in no acute pain or distress, resting comfortably SKIN: pink, warm, dry CARDIAC: regular rate and rhythm. No obvious JVD while sitting upright. bilateral lower extremity edema 2-3+ extending into thighs. RESPIRATORY: in no respiratory distress, lungs clear to auscultation Initial orders for labs and / or imaging were placed and patient was placed in the waiting area until a bed is available. Please see further documentation for the full ED course.
--- NOTE | 2022-09-20 16:39 | XRay Report ---
XR chest 1V not portable CLINICAL HISTORY: CHF, increase in fluid COMPARISON STUDY: Chest radiograph August 20, 2022. Chest CT December 28, 2019 2. FINDINGS: A left subclavian pacer/AICD remains in place. Cardiomegaly is unchanged. There are suspect ed trace bilateral pleural effusions. There is no consolidation to suggest pneumonia. There is pulmon ciara vascular congestion with suspected mild pulmonary edema. IMPRESSION: 1. Cardiomegaly. Pulmonary vascular congestion with suspected mild pulmonary edema. 2. Trace bilateral pleural effusions. ACT 112: Negative or not required by law. Electronically signed by: Cullen Mclaughlin M.D. 09/20/2022 4:38 PM
[2022-09-20 17:21] LABS: Basophils # (auto) 0.05 K/uL (0-0.2); Basophils % (auto) 0.7 %; Eosinophils # (auto) 0.13 K/uL (0-0.50); Eosinophils % (auto) 1.7 %; Hematocrit (blood only) 41.6 % (42.0-52.0); Hemoglobin 13.1 g/dl (14.0-18.0); Immature Granulocytes # (auto) 0.03 K/uL (0.01-0.20); Immature Granulocytes % (auto) 0.4 %; Lymphocytes # (auto) 1.05 K/uL (1.2-3.4); Lymphocytes % (auto) 13.9 %; Mean Corpuscular Hemoglobin 29.7 pg (25.0-34.0); Mean Corpuscular Hgb Conc 31.5 g/dL (32.0-36.0); Mean Corpuscular Volume 94.3 fL (80.0-100.0); Monocytes # (auto) 0.63 K/uL (0.11-0.59); Monocytes % (auto) 8.3 %; Neutrophils # (auto) 5.68 K/uL (1.40-6.50); Nucleated RBC # (auto) 0.04 K/uL (0-0.12); Nucleated RBC % (auto) 0.5 %; Platelet Count 214 K/uL (130-400); RDW Coefficient of Variation 21.7 % (11.5-14.5); Red Blood Count 4.41 M/uL (4.70-6.10); White Blood Count 7.57 K/ul (4.8-10.8)
[2022-09-20 17:37] LABS: Albumin Level 3.8 gm/dl (3.4-5.0); Anion Gap 9 (3-11); Bilirubin,Total 4.7 mg/dl (0.2-1.0); Calcium 9.4 mg/dl (8.6-10.3); Carbon Dioxide 26 mmol/L (21-32); Chloride 102 mmol/L (98-107); Magnesium 2.3 mg/dl (1.7-2.4); Potassium 3.9 mmol/L (3.5-5.1); Sodium 137 mmol/L (136-145)
[2022-09-20 17:38] LABS: Anisocytosis Present; Ovalocytes 1+; Polychromasia 1+; Tear Drop Cells 1+
[2022-09-20 17:43] LABS: Alanine Aminotransferase 46 U/L (7-52); Albumin Globulin Ratio 1.1 (0.9-2); Alkaline Phosphatase 122 U/L (34-104); Aspartate Aminotransferase 33 U/L (13-39); BUN Creatinine Ratio 26.6 (10-20); Blood Urea Nitrogen 41 mg/dl (6-23); Est GFR (African American) 57.6 ml/min; Est GFR (Non-African American) 49.7 ml/min; Globulin 3.5 gm/dl (2.5-4.0); Glucose 93 mg/dl (70-99(Fasting)); Total Protein 7.3 gm/dl (6.0-8.3)
[2022-09-20 17:48] LABS: Troponin I High Sensitivity 23.2 pg/ml (0-20)
[2022-09-20] MEDS ORDERED: BUMETANIDE 2 MG in SYRINGE 0 ML IV ONE (17:59)
--- NOTE | 2022-09-20 19:28 | History & Physical Report ---
Date of Service September 20, 2022 Assessment & Plan (1) Acute decompensated heart failure: Plan: Patient admitted for acute decompensated heart failure on chronic HFrEF secondary to NICM - Diurese overnight- received 2mg IV BUMEX on arrival- re-dose in am- goal 750ml-1liter then defer to cardiology - Continue carvedilol - Optimize fluid volume status for advanced therapy evaluation - Cardiology consulted - appreicate assistance (2) Severe obstructive sleep apnea: Plan: CPAP autoPAP at night - patient compliant - no acute needs (3) AICD (automatic cardioverter/defibrillator) present: Plan: Placed secondary to ventricular arrhythmias - Dual Chamber- DDDR low-70; tracking rate 120 - Continue Amiodarone for ventricular arrythmia prevention (4) CKD (chronic kidney disease), stage III: Plan: CKD III- improved renal indices since prior admission - follow closely with diuresing - likely will need to sacrifice some renal function for volume optimization and symptom improvement (5) Cardiomyopathy: Plan: NICM in nature- (6) DVT prophylaxis: Plan: Lovenox 40mg Sub q BID - follow renal function History of Present Illness Chief Complaint: weight gain Primary Care Provider: Tamar Boss 57 YOM with HFrEF(30-35%), NICM, DMII, Dual Chamber AICD in place secondary to hx of Ventricular arrhythmia, HLD, Mitral Regurge, Morbid obesity, COTY, COVID, bronchitis. Patient denies any dyspnea, chest pain, worsening of his edema, but does endorse worsening orthopnea. 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 Patient was previously admitted to the ICU early in August 2022 for decompensation requiring inotrope support. He also had his Entresto discontinued at that time secondary to hypotension as well as diuretics adjusted, his carvedilol was also ouptitrated in the face of discontinuing Entresto. He has also been referred to [facility] heart failure clinic for evaluation of advanced therapies. He has an appointment there next week. Patient reports that he feels his weight is only up 0.5-1 lb at home. He does endorse poor exertion tolerance and inability to lie flat. In the EMD the patient was evaluate with routine labs to include HScTNI and BNP. His BNP is elevated to 1169 which has been steadily increasing over the past months. LABOURERS is at 1.54 which is probably at his new baseline, this is down from previous at 1.6. He had ECG performed as well as CXR. He was given 2mg IV Bumex at 1830 and has not voided yet. We will have to watch his blood pressure and renal function c losely. Cardiology consult placed for medication titration. COVID: NEGATIVE CODE: FULL CONSULTS: Cardiology Allergies Allergy/AdvReac Type Severity Reaction Status Date / Time mexiletine AdvReac Intermediate MADE ME Verified 09/20/22 18:49 SICK Home Medications Medication Instructions Recorded Confirmed Type omega-3 fatty acids 1,250 mg 1,250 mg PO DAILY 03/28/19 09/20/22 History capsule multivitamin 1 tab PO DAILY 12/01/19 09/20/22 History Auto Titrating CPAP #1 ea 03/16/20 09/20/22 Rx CPAP Supplies #1 ea 03/16/20 09/20/22 Rx cholecalciferol (vitamin D3) 50 50 mcg PO DAILY 04/05/21 09/20/22 History mcg (2,000 unit) capsule atorvastatin 80 mg tablet 80 mg PO HS 10/13/21 09/20/22 History allopurinol 300 mg tablet 300 mg PO DAILY 12/27/21 09/20/22 History metolazone 5 mg tablet 5 mg PO DAILY PRN WT GAIN 12/27/21 09/20/22 History aspirin 81 mg tablet,delayed 81 mg PO QAM 04/07/22 09/20/22 History release zinc acetate 25 mg (zinc) capsule 0 mg PO DAILY 04/07/22 09/20/22 History blood sugar diagnostic (OneTouch #100 ea 04/08/22 09/20/22 Rx Verio test strips) blood-glucose meter (OneTouch #1 ea 04/08/22 09/20/22 Rx Verio Meter) lancets 33 gauge (OneTouch Delica #100 ea 04/08/22 09/20/22 Rx Lancets) potassium chloride 20 mEq 40 meq PO BID #120 tabs 04/08/22 09/20/22 Rx tablet,extended release(part/cryst) (Klor-Con M) spironolactone 25 mg tablet 12.5 mg PO DAILY #45 tabs 05/16/22 09/20/22 Rx albuterol sulfate 90 mcg/actuation 2 puff inhalation QID PRN 07/01/22 09/20/22 History aerosol inhaler Shortness Of Breath Or Wheezing allopurinol 100 mg tablet 100 mg PO DAILY 07/10/22 09/20/22 History amiodarone 400 mg tablet 400 mg PO QAM 08/19/22 09/20/22 History carvedilol 6.25 mg tablet 6.25 mg PO BID 30 days #60 tabs 08/24/22 09/20/22 Rx bumetanide 2 mg tablet 2 mg PO BID 09/20/22 09/20/22 History 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 Dyslipidemia Dyspnea Elevated bilirubin Former smoker Hemoptysis Hypnagogic jerks Hypoxia Metabolic syndrome Non-rheumatic mitral regurgitation Obesity, morbid, BMI 40.0-49.9 Obstructive sleep apnea of adult Prerenal azotemia Restrictive lung disease Shortness of breath Systolic congestive heart failure Ventricular tachycardia (paroxysmal) Family History Other Cystic kidney disease Diabetes Dyslipidemia Heart disease Hypertension Social History Smoking Status: Former smoker Tobacco Type: Cigarettes Second Hand Exposure: No; Do You Dip or Chew Tobacco: No; Hx Alcohol Use: Yes Alcohol type: beer Hx Substance Use: Yes Last Used Substance: Unknown Last Used Substance Other:: last used more than 4 months ago Substance Use Type Other:: has not used for 4 months Preferred Language: Trinidadian Communication Ability: Effective Closet Builder Required: No Beliefs That Will Affect Care: Jain Jain Beliefs: would like a fish house worker notified if his condition declines Current Living Situation: Alone Current Living Situation Comment: From home alone 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 Other Information That Helps Us Care for You: No Feels Safe at Home: Yes Safety Concerns: Feels Safe At This Time Assistive Devices: CPAP and Glasses Review of Systems Review of Systems: REVIEW OF SYSTEMS: Constitutional: No fever, sweats or chills Eyes: No diplopia, no worsening or blurred vision ENT: normal hearing, no trouble swallowing Respiratory: (+) dyspnea on exertion, No cough, sputum Cardiovascular: (+) increase in edema, No chest pain, tightness or palpitations Abdomen: No pain, nausea, vomiting, diarrhea or constipation Musculoskeletal: No joint pain, calf pain, swelling Neurologic: No weakness, numbness/tingling, or balance problems Psychiatric: No anxiety or depression Skin: No rash or itch Physical Exam 2 Physical Exam: PHYSICAL EXAM: General: awake, alert, no apparent distress Head: Normocephalic, atraumatic ENT: PERRL, EOMI, no pharyngeal exudate, mucous membranes moist Neuro: AAO x 3, speech clear and appropriate, strength intact bilaterally 5/5, sensation intact and equal all extremities and dermatomes, no pronator drift Chest: equal rise and fall of the chest, no accessory muscle use, no heaves or thrills, Clear to auscultation, on room air, Cardiac: Regular rate and rhythm, telemetry reviewed- atrial paced, skin warm dry, cap refill <3 seconds, peripheral pulses +2 no JVD, Grade II systolic murmur, Pitting edema to knees bilaterally GI: NABS x 4 quadrants, soft, nontender to palpation, no rebound, guarding or tenderness : Spontaneously voiding, no pain, no CVA tenderness, Extremities: Normal inspection, no peripheral edema or erythema, calfs nontender to palpation Psych: Normal mood and affect Skin: chronic venous insufficiency Results & Data Results & Data Vital Signs (Past 12 Hours) Vital Signs Temp Pulse Pulse Resp BP BP Pulse Ox 09/20/22 18:41 80 09/20/22 18:27 80 18 98/63 L 95 09/20/22 15:38 36.0 C L 82 16 97/67 L 96 O2 Del Method 09/20/22 18:41 09/20/22 18:27 Room Air 09/20/22 15:38 Room Air Laboratory Results Abnormal lab results 09/20/22 09/20/22 09/20/22 Range/Units 16:50 16:50 16:50 RBC 4.41 L (4.70-6.10) M/uL Hgb 13.1 L (14.0-18.0) g/dl Hct 41.6 L (42.0-52.0) % MCHC 31.5 L (32.0-36.0) g/dL RDW Std Deviation 73.0 H (36.4-46.3) fL RDW Coeff of Kylee 21.7 H (11.5-14.5) % Lymph # (Auto) 1.05 L (1.2-3.4) K/uL [place] # (Auto) 0.63 H (0.11-0.59) K/uL BUN 41 H (6-23) mg/dl Creatinine 1.54 H (0.6-1.4) mg/dl BUN/Creatinine Ratio 26.6 H (10-20) Total Bilirubin 4.7 H (0.2-1.0) mg/dl Alkaline Phosphatase 122 H (34-104) U/L Troponin I High Sens 23.2 H (0-20) pg/ml B-Natriuretic Peptide 1169 H (0-100) pg/ml Diagnostic Findings Chest X-Ray 09/20/22 15:39 XR chest 1V not portable CLINICAL HISTORY: CHF, increase in fluid COMPARISON STUDY: Chest radiograph August 20, 2022. Chest CT December 28, 2019 2. FINDINGS: A left subclavian pacer/AICD remains in place. Cardiomegaly is unchanged. There are suspected trace bilateral pleural effusions. There is no consolidation to suggest pneumonia. There is pulmonary vascular congestion with suspected mild pulmonary edema. IMPRESSION: 1. Cardiomegaly. Pulmonary vascular congestion with suspected mild pulmonary edema. 2. Trace bilateral pleural effusions. ACT 112: Negative or not required by law. Electronically signed by: Cullen Mclaughlin M.D. 09/20/2022 4:38 PM Medications Administered Discontinued Medications Bumetanide 2 mg/ Syringe 8 mls @ 4 mls/min IV ONE ONE Stop: 09/20/22 18:00 Last Admin: 09/20/22 18:30 Dose: 4 mls/min Documented By: [facility] Medications omega-3 fatty acids 1,250 mg capsule 1,250 mg PO DAILY 03/28/19 [History Confirmed 09/20/22] multivitamin 1 tab PO DAILY 12/01/19 [History Confirmed 09/20/22] Auto Titrating CPAP #1 ea 03/16/20 [Rx Confirmed 09/20/22] CPAP Supplies #1 ea 03/16/20 [Rx Confirmed 09/20/22] cholecalciferol (vitamin D3) 50 mcg (2,000 unit) capsule 50 mcg PO DAILY 04/05/21 [History Confirmed 09/20/22] atorvastatin 80 mg tablet 80 mg PO HS 10/13/21 [History Confirmed 09/20/22] allopurinol 300 mg tablet 300 mg PO DAILY 12/27/21 [History Confirmed 09/20/22] metolazone 5 mg tablet 5 mg PO DAILY PRN WT GAIN 12/27/21 [History Confirmed 09/20/22] aspirin 81 mg tablet,delayed release 81 mg PO QAM 04/07/22 [History Confirmed 09/20/22] zinc acetate 25 mg (zinc) capsule 0 mg PO DAILY 04/07/22 [History Confirmed 09/20/22] blood sugar diagnostic ([employer] Verio test strips) #100 ea 04/08/22 [Rx Confirmed 09/20/22] blood-glucose meter ([employer] Verio Meter) #1 ea 04/08/22 [Rx Confirmed 09/20/22] lancets 33 gauge ([employer] Delica Lancets) #100 ea 04/08/22 [Rx Confirmed 09/20/22] potassium chloride 20 mEq tablet,extended release(part/cryst) (Klor-Con M) 40 meq PO BID #120 tabs 04/08/22 [Rx Confirmed 09/20/22] spironolactone 25 mg tablet 12.5 mg PO DAILY #45 tabs 05/16/22 [Rx Confirmed 09/20/22] albuterol sulfate 90 mcg/actuation aerosol inhaler 2 puff inhalation QID PRN Shortness Of Breath Or Wheezing 07/01/22 [History Confirmed 09/20/22] allopurinol 100 mg tablet 100 mg PO DAILY 07/10/22 [History Confirmed 09/20/22] amiodarone 400 mg tablet 400 mg PO QAM 08/19/22 [History Confirmed 09/20/22] carvedilol 6.25 mg tablet 6.25 mg PO BID 30 days #60 tabs 08/24/22 [Rx Confirmed 09/20/22] bumetanide 2 mg tablet 2 mg PO BID 09/20/22 [History Confirmed 09/20/22] ECG Additional Comments: Atrial-paced rhythm with prolonged AV conduction Rightward axis Non-specific intra-ventricular conduction block Abnormal ECG When compared with ECG of 23-AUG-2022 09:17, Nonspecific T wave abnormality no longer evident in Lateral leads QT has shorten Code Status & VTE Plan Code Status CODE: FULL VTE Prophylaxis Plan VTE Prophylaxis will be ordered: Yes Supervising Physician Co-Signing Physician Notes Patient seen and examined, chart reviewed, case discussed with KATIE Mejía and I agree with the assessment and plan as above. In brief, patient is a pleasant 57yo male with history of NICM, HFrEF (30-35%), history of ventricular arrhythmia and cardiac arrest s/p placement of dual chamber AICD presenting with worsening orthopnea. Patient follows with Cardiology and was referred to the ER for IV diuresis secondary to weight gain. He is scheduled to followup with [facility] HF clinic for consideration of advanced therapies. In the ER he is resting comfortably, NAD Skin - intact, no rash HEENT -NC/AT, PERRL, MMM, Neck supple Heart - +S1/S2, regular, 3/6 MONSE Lungs - crackles in bilateral bases Abd - obese, soft, NT/ND Ext - warm, well perfused, no clubbing/cyanosis or edema Labs and images reviewed Assessment/Plan - acute decompensated CHF secondary to NICM/HFrEF. Patient not responding to outpatient diuresis therefore necessitating hospitalization and optimization -Continue IV diuresis with Bumex. Close monitoring of I/Os, electrolytes and renal function. -Continue Amiodarone, Carvedilol -Cardiology assistance appreciated -Remainder as above PG Care Time/CCT Total # of Minutes Spent Total Time Spent with Patient: Total time spent is greater than 50% in coordination of care (as documented) at patient's floor/unit and/or counseling patient: Coding Level of Care Code 99127 INT INP/OBS CARE 2/55MIN Diagnoses Acute decompensated heart failure I50.9 Severe obstructive sleep apnea G47.33 AICD (automatic cardioverter/defibrillator) present Z95.810 CKD (chronic kidney disease), stage III N18.30 Cardiomyopathy I42.9 DVT prophylaxis Z29.9 Time Spent (min) 40
--- NOTE | 2022-09-20 20:45 | Emergency Department Note ---
Impression & Plan Acute decompensated heart failure, Cardiomyopathy, AICD (automatic cardioverter/defibrillator) present, CKD (chronic kidney disease) ED Provider Note NAME: MISSY PIERRE AGE: 57 SEX: M ARRIVES VIA: Walk-In INFORMANT: Patient ED PROVIDER(S): Lars Costa MD CHIEF COMPLAINT: CHF, referred. PLAN: Disposition: Admit MEDICAL DECISION MAKING: The patient is a pleasant 57-year-old gentleman with a past medical history of nonischemic cardiomyopathy, obesity hypoventilation syndrome, chronic respiratory failure/restrictive lung disease, hypertension, hyperlipidemia, metabolic syndrome, ventricular tachycardia, status post AICD placement who presents to the emergency department via walk-in, referred by his cardiology office for evaluation of continued fluid retention/hypervolemia despite being resumed on his oral Bumex where it is felt that he will require admission for IV diuresis. The patient's case was discussed with Dr. Moran, who evaluated the patient today and referred the patient for hospitalization. Appreciate recommendations. The patient denies any fevers, chills, cough, congestion, GI or symptoms. Of note, the patient was recently admitted to this facility from 08/19-08/24 for hypovolemic shock secondary to his diuretic therapy in the setting of his CHF and so the patient was resumed initially on 1 mg of Bumex daily and reports he only began his 2 mg daily dose on 09/16 but reports he has not had any improvement in his edema. Of note, the patient did arrive to emergency department during time of high volume, acuity and prolonged emergency department waiting times. Critical pathways initiated from triage. On my evaluation the patient is in no acute distress, afebrile with stable vital signs. He appears hypervolemic with 2+ bilateral lower extremity pitting edema. Diminished breath sounds at the bases. EKG without overt acute ischemia. CXR with trace bilateral pleural effusions with vascular ingestion and mild pulmonary edema. WBC and platelets within normal limits. H/H similar to prior range values. Chemistry without metabolic acidosis. Creatinine 1.5, similar to recent range of values. Total bilirubin 4.7, similar to prior values. AST and ALT are normal. Alk phos is not elevated. High-sensitivity troponin 23.2, nonspecific. BNP 1100, nonspecific but on the higher end of prior values in the setting of the patient's known cardiomyopathy and CKD. Covid-19 RNA, NAAT test was negative. Given the patient's persistent fluid retention agrees with plan for admission for IV diuresis per cardiology recommendations. Case was discussed with Connor WILSON with Dr. Logan [facility] hospitalist, who will evaluate the patient for admission. Triage Nursing notes reviewed and agree them. Prior/outside medical records reviewed Vital Signs: reviewed Differential diagnosis: Reactive airway disease, pneumonia, pneumothorax, COPD, CHF, infections, cardiac ischemia, pulmonary embolism, musculoskeletal, gastrointestinal, as well as other pathologies. ER treatment provided: See below. Diagnostics interpreted by me: ECG: Atrial paced rhythm, 83 bpm, no overt acute ischemia. No ectopy. Cardiac Monitoring: An order for continuous cardiac monitoring was placed and demonst Atrial paced rhythm, 83 bpm, no ectopy. Laboratory studies: See below Imaging studies: See below Consultation(s): Dr. Moran, [place] cardiology Connor WILSON with [facility] hospitalist HPI: The patient is a pleasant 57-year-old gentleman with a past medical history of nonischemic cardiomyopathy, obesity hypoventilation syndrome, chronic respiratory failure/restrictive lung disease, hypertension, hyperlipidemia, metabolic syndrome, ventricular tachycardia, status post AICD placement who presents to the emergency department via walk-in, referred by his cardiology office for evaluation of continued fluid retention/hypervolemia despite being resumed on his oral Bumex where it is felt that he will require admission for IV diuresis. The patient's case was discussed with Dr. Moran, who evaluated the patient today and referred the patient for hospitalization. Appreciate recommendations. The patient denies any fevers, chills, cough, congestion, GI or symptoms. Of note, the patient was recently admitted to this facility from 08/19-08/24 for hypovolemic shock secondary to his diuretic therapy in the setting of his CHF and so the patient was resumed initially on 1 mg of Bumex daily and reports he only began his 2 mg daily dose on 09/16 but reports he has not had any improvement in his edema. ROS: See above HPI for pertinent positives & negatives. A total of 10 systems reviewed and were otherwise negative. VITALS:See Below PHYSICAL EXAMINATION: GENERAL: Awake, alert, mildly dyspneic-appearing, in no distress HENT: Normocephalic, atraumatic. Oropharynx unremarkable. EYES: Normal conjunctiva. Sclera non-icteric. NECK: Supple. No nuchal rigidity. FROM. No JVD. RESPIRATORY: Diminished at bases and otherwise clear to auscultation. CARDIAC: Regular rate, normal rhythm. Extremities warm and well perfused. Pulses equal. ABDOMEN: Soft, non-distended. No tenderness to palpation. No rebound or guarding. No masses. RECTAL: Deferred. MUSCULOSKELETAL: Chest examination reveals no tenderness. The back is symmetrical on inspection without obvious abnormality. There is no CVA tenderness to palpation. No joint edema. LOWER EXTREMITIES: Calves are equal size bilaterally and non-tender. 2+ BLE edema. NEURO: Normal sensorium. No sensory or motor deficits noted. SKIN: No rash or jaundice noted. Lars Costa MD 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 Dyslipidemia Dyspnea Elevated bilirubin Former smoker Hemoptysis Hypnagogic jerks Hypoxia Metabolic syndrome Non-rheumatic mitral regurgitation Obesity, morbid, BMI 40.0-49.9 Obstructive sleep apnea of adult Prerenal azotemia Restrictive lung disease Shortness of breath Systolic congestive heart failure Ventricular tachycardia (paroxysmal) Family History Other Cystic kidney disease Diabetes Dyslipidemia Heart disease Hypertension Social History Smoking Status: Former smoker Tobacco Type: Cigarettes Second Hand Exposure: No; Do You Dip or Chew Tobacco: No; Hx Alcohol Use: Yes Alcohol type: beer Hx Substance Use: Yes Last Used Substance: Unknown Last Used Substance Other:: last used more than 4 months ago Substance Use Type Other:: has not used for 4 months Preferred Language: Colombian Communication Ability: Effective Propeller Mechanic Required: No Beliefs That Will Affect Care: Hindu Hindu Beliefs: would like a trim stencil maker notified if his condition declines Current Living Situation: Alone Current Living Situation Comment: From home alone 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 Other Information That Helps Us Care for You: No Feels Safe at Home: Yes Safety Concerns: Feels Safe At This Time Assistive Devices: Glasses Allergies Allergies Allergy/AdvReac Type Severity Reaction Status Date / Time mexiletine AdvReac Intermediate MADE ME Verified 09/20/22 18:49 SICK Home Meds Home Medications Medication Instructions Recorded Confirmed omega-3 fatty acids 1,250 mg 1,250 mg PO DAILY 03/28/19 09/20/22 capsule multivitamin 1 tab PO DAILY 12/01/19 09/20/22 cholecalciferol (vitamin D3) 50 50 mcg PO DAILY 04/05/21 09/20/22 mcg (2,000 unit) capsule atorvastatin 80 mg tablet 80 mg PO HS 10/13/21 09/20/22 allopurinol 300 mg tablet 300 mg PO DAILY 12/27/21 09/20/22 metolazone 5 mg tablet 5 mg PO DAILY PRN WT GAIN 12/27/21 09/20/22 aspirin 81 mg tablet,delayed 81 mg PO QAM 04/07/22 09/20/22 release zinc acetate 25 mg (zinc) capsule 0 mg PO DAILY 04/07/22 09/20/22 albuterol sulfate 90 mcg/actuation 2 puff inhalation QID PRN 07/01/22 09/20/22 aerosol inhaler Shortness Of Breath Or Wheezing allopurinol 100 mg tablet 100 mg PO DAILY 07/10/22 09/20/22 amiodarone 400 mg tablet 400 mg PO QAM 08/19/22 09/20/22 bumetanide 2 mg tablet 2 mg PO BID 09/20/22 09/20/22 Previous Rx's Medication Instructions Recorded Auto Titrating CPAP #1 ea 03/16/20 CPAP Supplies #1 ea 03/16/20 blood sugar diagnostic (OneTouch #100 ea 04/08/22 Verio test strips) blood-glucose meter (OneTouch #1 ea 04/08/22 Verio Meter) lancets 33 gauge (OneTouch Delica #100 ea 04/08/22 Lancets) potassium chloride 20 mEq 40 meq PO BID #120 tabs 04/08/22 tablet,extended release(part/cryst) (Klor-Con M) spironolactone 25 mg tablet 12.5 mg PO DAILY #45 tabs 05/16/22 carvedilol 6.25 mg tablet 6.25 mg PO BID 30 days #60 tabs 08/24/22 Results & Data (ED) Vital Signs Vital Signs - 24 hr 09/20/22 15:38 09/20/22 18:27 09/20/22 18:41 Temperature 36.0 C L Temperature Source Temporal Artery Scan Pulse Rate 82 80 Pulse Rate [Apical] 80 Pulse Rate from SpO2 Sensor Respiratory Rate 16 18 Respiratory Effort / Characteristics Non-Labored Non-Labored Respiratory Depth Normal Normal Respiratory Pattern Regular Blood Pressure 97/67 L Blood Pressure [Right Arm] 98/63 L Blood Pressure Mean 77 Blood Pressure Mean [Right Arm] 74 Blood Pressure Position [Right Arm] Sitting Pulse Oximetry 96 95 Oxygen Delivery Method Room Air Room Air Sepsis Recent Fever Within 48 Hours No Sepsis New/Unexplained Change in Mental Status No Sepsis Action Taken by Nursing No Action Required 09/20/22 19:46 09/20/22 18:32 09/20/22 18:40 Temperature Temperature Source Pulse Rate 80 80 Pulse Rate [Apical] 80 Pulse Rate from SpO2 Sensor 80 80 Respiratory Rate 25 H 20 Respiratory Effort / Characteristics Respiratory Depth Respiratory Pattern Blood Pressure Blood Pressure [Right Arm] 120/80 Blood Pressure Mean Blood Pressure Mean [Right Arm] 93 Blood Pressure Position [Right Arm] Lying Pulse Oximetry 95 95 97 Oxygen Delivery Method Room Air Sepsis Recent Fever Within 48 Hours Sepsis New/Unexplained Change in Mental Status Sepsis Action Taken by Nursing 09/20/22 18:50 09/20/22 19:00 09/20/22 19:00 Temperature Temperature Source Pulse Rate 80 80 Pulse Rate [Apical] Pulse Rate from SpO2 Sensor 81 79 Respiratory Rate 19 22 Respiratory Effort / Characteristics Respiratory Depth Respiratory Pattern Blood Pressure 95/59 L Blood Pressure [Right Arm] Blood Pressure Mean 71 Blood Pressure Mean [Right Arm] Blood Pressure Position [Right Arm] Pulse Oximetry 96 96 Oxygen Delivery Method Sepsis Recent Fever Within 48 Hours Sepsis New/Unexplained Change in Mental Status Sepsis Action Taken by Nursing 09/20/22 19:10 09/20/22 19:25 09/20/22 19:30 Temperature Temperature Source Pulse Rate 80 84 Pulse Rate [Apical] Pulse Rate from SpO2 Sensor 80 87 Respiratory Rate 16 22 Respiratory Effort / Characteristics Respiratory Depth Respiratory Pattern Blood Pressure 120/80 Blood Pressure [Right Arm] Blood Pressure Mean 93 Blood Pressure Mean [Right Arm] Blood Pressure Position [Right Arm] Pulse Oximetry 100 96 Oxygen Delivery Method Sepsis Recent Fever Within 48 Hours Sepsis New/Unexplained Change in Mental Status Sepsis Action Taken by Nursing 09/20/22 19:30 09/20/22 19:40 09/20/22 19:50 Temperature Temperature Source Pulse Rate 81 80 80 Pulse Rate [Apical] Pulse Rate from SpO2 Sensor 81 81 80 Respiratory Rate 20 20 21 Respiratory Effort / Characteristics Respiratory Depth Respiratory Pattern Blood Pressure Blood Pressure [Right Arm] Blood Pressure Mean Blood Pressure Mean [Right Arm] Blood Pressure Position [Right Arm] Pulse Oximetry 94 94 94 Oxygen Delivery Method Sepsis Recent Fever Within 48 Hours Sepsis New/Unexplained Change in Mental Status Sepsis Action Taken by Nursing Laboratory Data Attestation: I reviewed the patient's lab results. 09/20/22 16:50 09/20/22 16:50 Lab Results 09/20/22 09/20/22 09/20/22 Range/Units 16:31 16:47 16:50 WBC 7.57 (4.8-10.8) K/ul RBC 4.41 L (4.70-6.10) M/uL Hgb 13.1 L (14.0-18.0) g/dl Hct 41.6 L (42.0-52.0) % MCV 94.3 (80.0-100.0) fL MCH 29.7 (25.0-34.0) pg MCHC 31.5 L (32.0-36.0) g/dL RDW Std Deviation 73.0 H (36.4-46.3) fL RDW Coeff of Kylee 21.7 H (11.5-14.5) % Plt Count 214 (130-400) K/uL MPV 10.0 (9.4-12.4) fL Immature Gran % (Auto) 0.4 % Neut % (Auto) 75.0 % Lymph % (Auto) 13.9 % Dixon % (Auto) 8.3 % Eos % (Auto) 1.7 % Baso % (Auto) 0.7 % Neut # (Auto) 5.68 (1.40-6.50) K/uL Lymph # (Auto) 1.05 L (1.2-3.4) K/uL Dixon # (Auto) 0.63 H (0.11-0.59) K/uL Eos # (Auto) 0.13 (0-0.50) K/uL Baso # (Auto) 0.05 (0-0.2) K/uL Immature Gran # (Auto) 0.03 (0.01-0.20) K/uL Absolute Nucleated RBC 0.04 (0-0.12) K/uL Nucleated RBC % (auto) 0.5 % Polychromasia 1+ Anisocytosis Present Tear Drop Cells 1+ Ovalocytes 1+ Sodium (136-145) mmol/L Potassium (3.5-5.1) mmol/L Chloride (98-107) mmol/L Carbon Dioxide (21-32) mmol/L Anion Gap (3-11) BUN (6-23) mg/dl Creatinine (0.6-1.4) mg/dl Est Cr Clr Drug Dosing Est GFR ( Amer) ml/min Est GFR (Non-Af Amer) ml/min BUN/Creatinine Ratio (10-20) Glucose (70-99(Fasting)) mg/dl Calcium (8.6-10.3) mg/dl Magnesium Cancelled Total Bilirubin (0.2-1.0) mg/dl AST (13-39) U/L ALT (7-52) U/L Alkaline Phosphatase (34-104) U/L Troponin I High Sens (0-20) pg/ml B-Natriuretic Peptide (0-100) pg/ml Total Protein (6.0-8.3) gm/dl Albumin (3.4-5.0) gm/dl Globulin (2.5-4.0) gm/dl Albumin/Globulin Ratio (0.9-2) SARS-CoV-2, RNA, NAAT NEGATIVE (NEGATIVE) 09/20/22 09/20/22 Range/Units 16:50 16:50 WBC (4.8-10.8) K/ul RBC (4.70-6.10) M/uL Hgb (14.0-18.0) g/dl Hct (42.0-52.0) % MCV (80.0-100.0) fL MCH (25.0-34.0) pg MCHC (32.0-36.0) g/dL RDW Std Deviation (36.4-46.3) fL RDW Coeff of Kylee (11.5-14.5) % Plt Count (130-400) K/uL MPV (9.4-12.4) fL Immature Gran % (Auto) % Neut % (Auto) % Lymph % (Auto) % Dixon % (Auto) % Eos % (Auto) % Baso % (Auto) % Neut # (Auto) (1.40-6.50) K/uL Lymph # (Auto) (1.2-3.4) K/uL Dixon # (Auto) (0.11-0.59) K/uL Eos # (Auto) (0-0.50) K/uL Baso # (Auto) (0-0.2) K/uL Immature Gran # (Auto) (0.01-0.20) K/uL Absolute Nucleated RBC (0-0.12) K/uL Nucleated RBC % (auto) % Polychromasia Anisocytosis Tear Drop Cells Ovalocytes Sodium 137 (136-145) mmol/L Potassium 3.9 (3.5-5.1) mmol/L Chloride 102 (98-107) mmol/L Carbon Dioxide 26 (21-32) mmol/L Anion Gap 9 (3-11) BUN 41 H (6-23) mg/dl Creatinine 1.54 H (0.6-1.4) mg/dl Est Cr Clr Drug Dosing Not Reportable Est GFR ( Amer) 57.6 ml/min Est GFR (Non-Af Amer) 49.7 ml/min BUN/Creatinine Ratio 26.6 H (10-20) Glucose 93 (70-99(Fasting)) mg/dl Calcium 9.4 (8.6-10.3) mg/dl Magnesium 2.3 Total Bilirubin 4.7 H (0.2-1.0) mg/dl AST 33 (13-39) U/L ALT 46 (7-52) U/L Alkaline Phosphatase 122 H (34-104) U/L Troponin I High Sens 23.2 H (0-20) pg/ml B-Natriuretic Peptide 1169 H (0-100) pg/ml Total Protein 7.3 (6.0-8.3) gm/dl Albumin 3.8 (3.4-5.0) gm/dl Globulin 3.5 (2.5-4.0) gm/dl Albumin/Globulin Ratio 1.1 (0.9-2) SARS-CoV-2, RNA, NAAT (NEGATIVE) Administered Medications Discontinued Medications Bumetanide 2 mg/ Syringe 8 mls @ 4 mls/min IV ONE ONE Stop: 09/20/22 18:00 Last Admin: 09/20/22 18:30 Dose: 4 mls/min Documented By: [facility] Imaging Data Radiologist's Impression: Chest X-Ray 09/20/22 15:39 XR chest 1V not portable CLINICAL HISTORY: CHF, increase in fluid COMPARISON STUDY: Chest radiograph August 20, 2022. Chest CT December 28, 2019 2. FINDINGS: A left subclavian pacer/AICD remains in place. Cardiomegaly is unchanged. There are suspected trace bilateral pleural effusions. There is no consolidation to suggest pneumonia. There is pulmonary vascular congestion with suspected mild pulmonary edema. IMPRESSION: 1. Cardiomegaly. Pulmonary vascular congestion with suspected mild pulmonary edema. 2. Trace bilateral pleural effusions. ACT 112: Negative or not required by law. Electronically signed by: Cullen Mclaughlin M.D. 09/20/2022 4:38 PM Discharge Plan Visit Data Chief Complaint: Respiratory Problems Stated Complaint: REF BY DOC, TROUBLE BREATHING,CHF,EDEMA ED Provider: Lars Costa Discharge Problem: Acute decompensated heart failure, Cardiomyopathy, AICD (automatic cardioverter/defibrillator) present, CKD (chronic kidney disease) Forms Stand Alone Forms: [facility] Prescriptions Prescriptions: No Action (DME) CPAP Supplies Misc See Rx Instructions .MEDSUPPLY Qty: 1 0RF Rx Instructions: CPAP supplies. G47.33 (DME) Auto Titrating CPAP Misc See Rx Instructions .MEDSUPPLY Qty: 1 0RF Rx Instructions: Auto PAP with 10-20mm H20. Lifetime usage. G47.33 spironolactone 25 mg tablet 12.5 mg PO DAILY Qty: 45 3RF cholecalciferol (vitamin D3) 50 mcg (2,000 unit) capsule 50 mcg PO DAILY omega-3 fatty acids 1,250 mg capsule 1,250 mg PO DAILY multivitamin Tablet 1 tab PO DAILY albuterol sulfate 90 mcg/actuation HFA aerosol inhaler 2 puff INHALATION QID PRN (Reason: Shortness Of Breath Or Wheezing) allopurinol 100 mg tablet 100 mg PO DAILY Rx Instructions: TOTAL DOSE 400 MG--TAKES WITH 300 MG TAB. atorvastatin 80 mg tablet 80 mg PO HS metolazone 5 mg tablet 5 mg PO DAILY PRN (Reason: WT GAIN) Rx Instructions: take with Bumetanide allopurinol 300 mg tablet 300 mg PO DAILY Rx Instructions: TOTAL DOSE 400 MG-- TAKES WITH 100 MG TAB. aspirin 81 mg Tablet,Delayed Release (Dr/Ec) 81 mg PO QAM zinc acetate 25 mg (zinc) Capsule 0 mg PO DAILY Rx Instructions: PT UNSURE OF STRENGTH potassium chloride [Klor-Con M20] 20 mEq tablet,ER particles/crystals 40 meq PO BID Qty: 120 0RF (DME) blood-glucose meter [OneTouch Verio Meter] Misc See Rx Instructions .Route Qty: 1 0RF Rx Instructions: As directed (DME) OneTouch Verio test strips Strip See Rx Instructions .Route Qty: 100 0RF Rx Instructions: As directed once daily (DME) lancets [OneTouch Delica Lancets] 33 gauge misc See Rx Instructions .Route Qty: 100 0RF Rx Instructions: As directed once daily amiodarone 400 mg tablet 400 mg PO QAM carvedilol 6.25 mg Tablet 6.25 mg PO BID 30 Days Qty: 60 0RF bumetanide 2 mg tablet 2 mg PO BID Rx Instructions: TAKES QAM & AFTERNOON Referrals Referrals: Tamar Boss [Primary Care Provider] -
[2022-09-20] MEDS ORDERED: ONDANSETRON INJ 2 MG/ML 2 ML VIAL IV PRN (21:49)
[2022-09-20] MEDS ORDERED: GLUCOSE 10 TAB/TUBE PO PRN (21:49)
[2022-09-20] MEDS ORDERED: ALBUTEROL HFA 8 GM INHALER INH PRN (21:49)
[2022-09-20] MEDS ORDERED: DEXTROSE 50% 50 ML SYRINGE IV PRN (21:49)
[2022-09-20] MEDS ORDERED: GLUCOSE 40% GEL 15 GM TUBE PO PRN (21:49)
[2022-09-20] MEDS ORDERED: GLUCAGON FOR INJ 1 MG VIAL SQ PRN (21:49)
[2022-09-20] MEDS ORDERED: CARBOHYDRATES FOR HYPOGLYCEMIA PO PRN (21:49)
[2022-09-20] MEDS: carvediloL 6.25 MG TAB PO SCH (22:39)
[2022-09-20] MEDS: ENOXAPARIN INJ 40 MG/0.4 ML SYR SQ SCH (22:39)
[2022-09-20] MEDS: ATORVASTATIN 40 MG TAB PO SCH (22:40)
[2022-09-20] MEDS: POTASSIUM CHLORIDE CRTAB 20 MEQ TABCR PO SCH (22:41)
--- NOTE | 2022-09-21 07:22 | Hospitalist Progress Note ---
Date of Service September 21, 2022 Assessment & Plan (1) Acute decompensated heart failure: (2) Severe obstructive sleep apnea: (3) AICD (automatic cardioverter/defibrillator) present: (4) CKD (chronic kidney disease), stage III: (5) Cardiomyopathy: (6) DVT prophylaxis: Plan Acute decompensated heart failure Chronic heart failure with reduced ejection fraction - X-ray in the ED showed cardiomegaly with pulmonary vascular congestion and trace bilateral pleural effusions. - Echo from jul 2022 - EF 30-35% - Diurese overnight- received 2mg IV BUMEX on arrival. Currently -1450 output. - Patient remains fluid overloaded on physical exam this morning. Will continue with Bumex 2 mg IV twice daily - Continue carvedilol and spironolactone. - Cardiology consulted. -- Will be seen by [facility] for more thorough evaluation next week and possible rest of the management of patient's congestive heart failure. -- Continue with Bumex and monitor electrolyte and renal function closely. Severe obstructive sleep apnea - CPAP autoPAP at night - patient compliant - no acute needs AICD (automatic cardioverter/defibrillator) present - Placed secondary to ventricular arrhythmias - Dual Chamber- DDDR low-70; tracking rate 120 - Continue Amiodarone for ventricular arrythmia prevention CKD (chronic kidney disease), stage III - CKD III- improved renal indices since prior admission - follow closely with yamil - Creatinine 1.49 at this time. DVT prophylaxis - Lovenox 40mg Sub q BID - follow renal function Admission and Anticipated Discharge Date Admission Date: September 20, 2022 Supervising Physician Co-Signing Physician Notes Resident Physician Supervision Note: I independently interviewed and examined the patient and verified the melendez history and physical, reviewed labs and image studies and agree with resident findings and care plan. Subjective Patient was seen bedside this morning. States that he is feeling better than he was when he came in. Still has a little short of breath but has improved since coming into the hospital. Does state that he does have shortness of breath at baseline. Still continues to have orthopnea and lower extremity edema. Review of Systems Review of Systems: All systems reviewed & are unremarkable except as noted in Subjective Physical Exam Constitutional: + obese; no acute distress ENMT: external ear and nose normal, oropharynx normal Respiratory: normal respiratory effort, lungs clear to auscultation Cardiovascular: Rate/Rhythm: regular rate Extremities: + edema (Bilateral lower extremity) Gastrointestinal (Abdomen): normal bowel sounds, soft, nontender, no h epatosplenomegaly Skin: Blisters on the left anterior tibial skin with wound coverings Neurologic: patellar DTR's 2+ bilat, sensation intact Psychiatric: A+Ox3, euthymic affect Results & Data Results & Data Vital Signs (Past 12 Hours) Vital Signs Temp Pulse Pulse Pulse Resp BP BP 09/21/22 07:09 81 09/21/22 04:26 36.4 C L 75 20 99/65 L 09/21/22 03:20 09/21/22 02:56 83 24 09/21/22 01:30 09/21/22 01:17 79 09/21/22 01:23 37.0 C 80 18 92/67 L 09/20/22 23:16 80 09/20/22 22:49 09/20/22 22:48 81 22 112/80 09/20/22 22:48 09/20/22 22:34 81 09/20/22 19:50 80 21 09/20/22 19:40 80 20 09/20/22 19:30 81 20 09/20/22 19:30 120/80 09/20/22 19:25 84 22 09/20/22 19:46 80 120/80 Pulse Ox Pulse Ox O2 Del Method O2 Flow Rate 09/21/22 07:09 09/21/22 04:26 93 Nasal Cannula 1 09/21/22 03:20 95 2 09/21/22 02:56 92 2 09/21/22 01:30 Room Air 09/21/22 01:17 09/21/22 01:23 94 Room Air 09/20/22 23:16 09/20/22 22:49 94 Room Air 09/20/22 22:48 94 Room Air 09/20/22 22:48 94 09/20/22 22:34 09/20/22 19:50 94 09/20/22 19:40 94 09/20/22 19:30 94 09/20/22 19:30 09/20/22 19:25 96 09/20/22 19:46 95 Room Air
[2022-09-21 07:34] LABS: Basophils # (auto) 0.05 K/uL (0-0.2); Basophils % (auto) 0.8 %; Eosinophils # (auto) 0.11 K/uL (0-0.50); Eosinophils % (auto) 1.7 %; Hematocrit (blood only) 36.8 % (42.0-52.0); Hemoglobin 11.8 g/dl (14.0-18.0); Immature Granulocytes # (auto) 0.02 K/uL (0.01-0.20); Immature Granulocytes % (auto) 0.3 %; Lymphocytes # (auto) 0.87 K/uL (1.2-3.4); Lymphocytes % (auto) 13.2 %; Mean Corpuscular Hemoglobin 29.4 pg (25.0-34.0); Mean Corpuscular Hgb Conc 32.1 g/dL (32.0-36.0); Mean Corpuscular Volume 91.8 fL (80.0-100.0); Mean Platelet Volume 9.5 fL (9.4-12.4); Monocytes # (auto) 0.62 K/uL (0.11-0.59); Monocytes % (auto) 9.4 %; Neutrophils # (auto) 4.93 K/uL (1.40-6.50); Neutrophils % (auto) 74.6 %; Nucleated RBC # (auto) 0.03 K/uL (0-0.12); Nucleated RBC % (auto) 0.5 %; Platelet Count 182 K/uL (130-400); RDW Coefficient of Variation 21.8 % (11.5-14.5); RDW Standard Deviation 72.5 fL (36.4-46.3); Red Blood Count 4.01 M/uL (4.70-6.10)
[2022-09-21 08:00] LABS: Anisocytosis Present; Ovalocytes 1+; Polychromasia 1+
[2022-09-21 08:06] LABS: BUN Creatinine Ratio 26.2 (10-20); Calcium 8.9 mg/dl (8.6-10.3); Creatinine Clr Calc Pharmacy 77.5 ml/min; Est GFR (African American) 59.9 ml/min; Est GFR (Non-African American) 51.7 ml/min; Magnesium 2.2 mg/dl (1.7-2.4); Potassium 3.8 mmol/L (3.5-5.1)
[2022-09-21 08:27] LABS: Troponin I High Sensitivity 21.1 pg/ml (0-20)
--- NOTE | 2022-09-21 08:46 | Electrocardiogram Report ---
Test Reason : Blood Pressure : / mmHG Vent. Rate : 083 BPM Atrial Rate : 083 BPM P-R Int : 284 ms QRS Dur : 138 ms QT Int : 448 ms P-R-T Axes : 000 096 028 degrees QTc Int : 526 ms Atrial-paced rhythm with prolonged AV conduction with occasional Premature ventricular complexes Rightward axis Non-specific intra-ventricular conduction block Abnormal ECG When compared with ECG of 23-AUG-2022 09:17, Premature ventricular complexes now present Confirmed by Roberto Carlos Rubalcava ([id number]) on 09/21/2022 8:45:40 AM Referred By: Arley Moran Confirmed By:Roberto Carlos Rubalcava
[2022-09-21] MEDS: INSULIN ASPART PER UNIT CHARGE SC SCH ×4 (08:53→20:51)
[2022-09-21] MEDS: CHOLECALCIFEROL 1,000 UNITS 25 MCG TAB PO SCH (08:57)
[2022-09-21] MEDS: AMIODARONE 200 MG TAB PO SCH (08:57)
[2022-09-21] MEDS: ASPIRIN 81 MG ECTAB PO SCH (08:57)
[2022-09-21] MEDS: carvediloL 6.25 MG TAB PO SCH ×2 (08:58→21:32)
[2022-09-21] MEDS: allopurinoL 100 MG TAB PO SCH (08:58)
[2022-09-21] MEDS: SPIRONOLACTONE 12.5 MG TAB PO SCH (08:58)
[2022-09-21] MEDS: allopurinoL 300 MG TAB PO SCH (08:58)
[2022-09-21] MEDS: POTASSIUM CHLORIDE CRTAB 20 MEQ TABCR PO SCH ×2 (08:59→21:32)
[2022-09-21] MEDS: ENOXAPARIN INJ 40 MG/0.4 ML SYR SQ SCH ×2 (08:59→21:33)
[2022-09-21] MEDS ORDERED: BUMETANIDE 2 MG in SYRINGE 0 ML IV SCH (09:00)
[2022-09-21] MEDS ORDERED: ZINC ACETATE 25 MG PO SCH (09:00)
--- NOTE | 2022-09-21 11:10 | Cardiology Progress Note ---
Date of Service September 21, 2022 Assessment & Plan (1) Acute decompensated heart failure: (2) Cardiomyopathy: (3) AICD (automatic cardioverter/defibrillator) present: (4) Ventricular fibrillation: Plan 1. Decompensated heart failure: He has reduced LV systolic function and clear ly has volume overload. This has been progressive over a couple of weeks. Likely related to a reduction in his diuretic therapy subsequent to his last admission. Not responding to outpatient diuresis. She did seem to have a good response to intravenous bumetanide last evening. I think we will continue the current regimen as prescribed. Will need to monitor his electrolytes and renal function closely. 2. Cardiomyopathy: This has waxed and waned in severity. His symptoms have certainly worsened since his admission for an RSV infection earlier this year. He has had some evaluation [facility] recently and is scheduled for a more thorough evaluation next week. He has not tolerated more aggressive therapy and is currently only on carvedilol and spironolactone. Prior inter ventions of resulted in hypotension. Treatment with an SGLT 2 inhibitor resulted in urinary tract infection. He may require more advanced therapy such as mechanical assist device. 3. normally functioning dual-chamber ICD. This was interrogated yesterday. Old recent events. Overall ventricular pacing percentage has been elevated at times in this could contribute to some decompensation. We will see what plans will be made for him at [facility] next week prior to any recommendations regarding his device. 4. Ventricular fibrillation: He has a history of ventricular arrhythmias best described as VF. He has had appropriate therapies previously. Recently. Continuing on amiodarone and carvedilol. I think the goal of his admission is to provide adequate diuresis while mon itoring his renal function and electrolytes. If we can achieve relative euvolemia and he can travel to [facility] next week for more definitive evaluation regarding advanced heart failure therapies. Admission and Anticipated Discharge Date Admission Date: September 20, 2022 Subjective this morning the patient claimed he feeling somewhat better. He noticed some improvement in his lower extremity edema. He was able to ambulate to the bathroom and back without dizziness or lightheadedness. Some difficulty ambulating due to imbalance and the lower extremity edema. Some dyspnea. Review of Systems Review of Systems: Per HPI Physical Exam Physical Exam: The patient is alert and oriented. Mood and affect appeared normal. He answered all questions appropriately. obese HEENT: Pupils are equal and reactive to light and accommodation. Extraocular movements are intact. The sclerae are anicteric. Neuro: Cranial nerves intact Lungs: Clear to auscultation bilaterally. He has good air movement without use of accessory muscles. No rales wheezes or rhonchi. Cardiac: Heart demonstrates a regular rate and rhythm. Normal S1 and S2. No murmurs on examination. Pulses: The patient has palpable radial pulses bilaterally that are equal in intensity Extremities: There was no evidence of hypoperfusion. There is no cyanosis or clubbing. severe lower extremity edema into the thighs bilaterally. Skin: I did not appreciate any rashes on examination today. Results & Data Vital Signs (Past 12 Hours) Vital Signs Temp Pulse Pulse Pulse Resp BP Pulse Ox 09/21/22 07:25 36.3 C L 81 20 100/63 92 09/21/22 07:09 81 09/21/22 04:26 36.4 C L 75 20 99/65 L 93 09/21/22 03:20 95 09/21/22 02:56 83 24 92 09/21/22 01:30 09/21/22 01:17 79 09/21/22 01:23 37.0 C 80 18 92/67 L 94 09/20/22 23:16 80 O2 Del Method O2 Flow Rate 09/21/22 07:25 Room Air 09/21/22 07:09 09/21/22 04:26 Nasal Cannula 1 09/21/22 03:20 2 09/21/22 02:56 2 09/21/22 01:30 Room Air 09/21/22 01:17 09/21/22 01:23 Room Air 09/20/22 23:16 Laboratory Results Abnormal Lab Results 09/20/22 09/20/22 09/20/22 16:31 16:47 16:50 WBC 7.57 RBC 4.41 L Hgb 13.1 L Hct 41.6 L MCV 94.3 MCH 29.7 MCHC 31.5 L RDW Std Deviation 73.0 H RDW Coeff of Kylee 21.7 H Plt Count 214 MPV 10.0 Immature Gran % (Auto) 0.4 Neut % (Auto) 75.0 Lymph % (Auto) 13.9 [place] % (Auto) 8.3 Eos % (Auto) 1.7 Baso % (Auto) 0.7 Neut # (Auto) 5.68 Lymph # (Auto) 1.05 L [place] # (Auto) 0.63 H Eos # (Auto) 0.13 Baso # (Auto) 0.05 Immature Gran # (Auto) 0.03 Absolute Nucleated RBC 0.04 Nucleated RBC % (auto) 0.5 Polychromasia 1+ Anisocytosis Present Tear Drop Cells 1+ Ovalocytes 1+ Sodium Potassium Chloride Carbon Dioxide Anion Gap BUN Creatinine Est Cr Clr Drug Dosing Est GFR ( Amer) Est GFR (Non-Af Amer) BUN/Creatinine Ratio Glucose Calcium Magnesium Cancelled Total Bilirubin AST ALT Alkaline Phosphatase Troponin I High Sens B-Natriuretic Peptide Total Protein Albumin Globulin Albumin/Globulin Ratio SARS-CoV-2, RNA, NAAT NEGATIVE 09/20/22 09/20/22 09/21/22 16:50 16:50 07:10 WBC 6.60 RBC 4.01 L Hgb 11.8 L Hct 36.8 L MCV 91.8 MCH 29.4 MCHC 32.1 RDW Std Deviation 72.5 H RDW Coeff of Kylee 21.8 H Plt Count 182 MPV 9.5 Immature Gran % (Auto) 0.3 Neut % (Auto) 74.6 Lymph % (Auto) 13.2 [place] % (Auto) 9.4 Eos % (Auto) 1.7 Baso % (Auto) 0.8 Neut # (Auto) 4.93 Lymph # (Auto) 0.87 L [place] # (Auto) 0.62 H Eos # (Auto) 0.11 Baso # (Auto) 0.05 Immature Gran # (Auto) 0.02 Absolute Nucleated RBC 0.03 Nucleated RBC % (auto) 0.5 Polychromasia 1+ Anisocytosis Present Tear Drop Cells Ovalocytes 1+ Sodium 137 Potassium 3.9 Chloride 102 Carbon Dioxide 26 Anion Gap 9 BUN 41 H Creatinine 1.54 H Est Cr Clr Drug Dosing Not Reportable Est GFR ( Amer) 57.6 Est GFR (Non-Af Amer) 49.7 BUN/Creatinine Ratio 26.6 H Glucose 93 Calcium 9.4 Magnesium 2.3 Total Bilirubin 4.7 H AST 33 ALT 46 Alkaline Phosphatase 122 H Troponin I High Sens 23.2 H B-Natriuretic Peptide 1169 H Total Protein 7.3 Albumin 3.8 Globulin 3.5 Albumin/Globulin Ratio 1.1 SARS-CoV-2, RNA, NAAT 09/21/22 07:10 WBC RBC Hgb Hct MCV MCH MCHC RDW Std Deviation RDW Coeff of Klyee Plt Count MPV Immature Gran % (Auto) Neut % (Auto) Lymph % (Auto) [place] % (Auto) Eos % (Auto) Baso % (Auto) Neut # (Auto) Lymph # (Auto) [place] # (Auto) Eos # (Auto) Baso # (Auto) Immature Gran # (Auto) Absolute Nucleated RBC Nucleated RBC % (auto) Polychromasia Anisocytosis Tear Drop Cells Ovalocytes Sodium 139 Potassium 3.8 Chloride 103 Carbon Dioxide 27 Anion Gap 9 BUN 39 H Creatinine 1.49 H Est Cr Clr Drug Dosing 77.5 Est GFR ( Amer) 59.9 Est GFR (Non-Af Amer) 51.7 BUN/Creatinine Ratio 26.2 H Glucose 103 H Calcium 8.9 Magnesium 2.2 Total Bilirubin AST ALT Alkaline Phosphatase Troponin I High Sens 21.1 H B-Natriuretic Peptide Total Protein Albumin Globulin Albumin/Globulin Ratio SARS-CoV-2, RNA, NAAT Diagnostic Findings Chest x-ray obtained the time admission suggestive of pulmonary vascular congestion and small bilateral pleural effusions Echocardiogram performed [facility] 01/05/2023: Dilated left ventricle with regional wall motion abnormalities involving the inferolateral anterolateral and anterior armstrong. Moderate to severely reduced LV systolic function with ejection fraction of 30 35%. Stage III diastolic dysfunction. Severely dilated right ventricle with normal right ventricular function. Biatrial dilation. Mild to moderate aortic insufficiency. Moderate mitral regurgitation. PG Care Time/CCT Total # of Minutes Spent Total Time Spent with Patient: Total time spent is greater than 50% in coordination of care (as documented) at patient's floor/unit and/or counseling patient: Coding Level of Care Code 11931 SUB INP/OBS CARE 2/35MIN Diagnoses Acute decompensated heart failure I50.9 Cardiomyopathy I42.9 AICD (automatic cardioverter/defibrillator) present Z95.810 Ventricular fibrillation I49.01
[2022-09-21] MEDS: BUMETANIDE 2 MG in SYRINGE 0 ML IV SCH (15:08)
[2022-09-21] MEDS: ACETAMINOPHEN 325 MG TAB PO PRN (21:32)
[2022-09-21] MEDS: ATORVASTATIN 40 MG TAB PO SCH (21:32)
--- NOTE | 2022-09-22 06:41 | Hospitalist Progress Note ---
Date of Service September 22, 2022 Assessment & Plan (1) Acute decompensated heart failure: (2) Severe obstructive sleep apnea: (3) AICD (automatic cardioverter/defibrillator) present: (4) CKD (chronic kidney disease), stage III: (5) Cardiomyopathy: (6) DVT prophylaxis: (7) GERD (gastroesophageal reflux disease): Plan Acute decompensated heart failure Chronic heart failure with reduced ejection fraction - X-ray in the ED showed cardiomegaly with pulmonary vascular congestion and trace bilateral pleural effusions. - Echo from jul 2022 - EF 30-35% - Diurese overnight- received 2mg IV BUMEX on arrival. - Patient remains fluid overloaded on physical exam this morning. Will continue with Bumex 2 mg IV twice daily - Continue carvedilol and spironolactone. - Cardiology consulted. -- Will be seen by [facility] for more thorough evaluation next week and possible aggressive management of patient's congestive heart failure. -- Continue with Bumex and monitor electrolyte and renal function closely. Slight bump in creatinine from 1.49 to 1.7, electrolytes have been stable. -- Some improvement with diuretics though more aggressive therapy may be needed. If urine output is acceptable may consider adding metolazone for this evening's dose. Gastroesophageal reflux disease Patient complaining of symptoms most consistent with GERD We will continue with his home Maalox and add on Protonix 40 mg every morning. Severe obstructive sleep apnea - CPAP autoPAP at night - patient compliant - no acute needs AICD (automatic cardioverter/defibrillator) present - Placed secondary to ventricular arrhythmias - Dual Chamber- DDDR low-70; tracking rate 120 - Continue Amiodarone and carvedilol for ventricular arrythmia prevention CKD (chronic kidney disease), stage III - CKD III- improved renal indices since prior admission - follow closely with diuresing - Creatinine 1.7, yesterday 1.49. We will closely monitor while diuresing. DVT prophylaxis - Lovenox 40mg Sub q BID - follow renal function Admission and Anticipated Discharge Date Admission Date: September 20, 2022 Supervising Physician Co-Signing Physician Notes Resident Physician Supervision Note: I independently interviewed and examined the patient and verified the melendez history and physical, reviewed labs and image studies and agree with resident findings and care plan. Subjective Patient was seen bedside this morning. States that he has been having some stomach issues overnight. States that he has been burping a lot and he has been having some discomfort in his throat. He he describes it as stopped burning but rather bitterness. Patient also states that his orthopnea has improved but is still present. Also states that he has been urinating a lot Review of Systems Review of Systems: All systems reviewed & are unremarkable except as noted in Subjective Physical Exam Constitutional: + obese; no acute distress ENMT: external ear and nose normal, oropharynx normal Respiratory: normal respiratory effort, lungs clear to auscultation Cardiovascular: Rate/Rhythm: regular rate Extremities: + edema (Bilateral lower extremity) Gastrointestinal (Abdomen): normal bowel sounds, soft, nontender, no hepatos plenomegaly Skin: Blisters on the left anterior tibial skin with wound coverings Neurologic: patellar DTR's 2+ bilat, sensation intact Psychiatric: A+Ox3, euthymic affect Results & Data Results & Data Vital Signs (Past 12 Hours) Vital Signs Temp Pulse Pulse Resp BP Pulse Ox O2 Del Method 09/22/22 02:23 36.6 C 81 18 94/64 L 91 Room Air 09/21/22 21:59 82 09/21/22 23:57 23 96 09/21/22 20:00 Room Air, CPAP 09/21/22 22:38 36.6 C 80 18 93/57 L 90 Room Air 09/21/22 19:38 36.5 C 68 18 111/71 92 Room Air O2 Flow Rate 09/22/22 02:23 09/21/22 21:59 09/21/22 23:57 2 09/21/22 20:00 09/21/22 22:38 09/21/22 19:38 Resident Activity Tracking Resident Involvement: Resident Care Provided Care Provided: Adult Hospital Medicine
[2022-09-22] MEDS: BUMETANIDE 2 MG in SYRINGE 0 ML IV SCH ×2 (08:25→14:47)
[2022-09-22] MEDS: CHOLECALCIFEROL 1,000 UNITS 25 MCG TAB PO SCH (08:25)
[2022-09-22] MEDS: AMIODARONE 200 MG TAB PO SCH (08:25)
[2022-09-22] MEDS: SPIRONOLACTONE 12.5 MG TAB PO SCH (08:25)
[2022-09-22] MEDS: ASPIRIN 81 MG ECTAB PO SCH (08:25)
[2022-09-22] MEDS: allopurinoL 300 MG TAB PO SCH (08:25)
[2022-09-22] MEDS: allopurinoL 100 MG TAB PO SCH (08:25)
[2022-09-22] MEDS: carvediloL 6.25 MG TAB PO SCH ×2 (08:25→20:57)
[2022-09-22] MEDS: INSULIN ASPART PER UNIT CHARGE SC SCH ×4 (08:26→20:36)
[2022-09-22] MEDS: POTASSIUM CHLORIDE CRTAB 20 MEQ TABCR PO SCH ×2 (08:29→20:57)
[2022-09-22 08:51] LABS: Basophils # (auto) 0.08 K/uL (0-0.2); Basophils % (auto) 1.1 %; Eosinophils # (auto) 0.08 K/uL (0-0.50); Eosinophils % (auto) 1.1 %; Hemoglobin 11.8 g/dl (14.0-18.0); Immature Granulocytes # (auto) 0.03 K/uL (0.01-0.20); Immature Granulocytes % (auto) 0.4 %; Lymphocytes # (auto) 1.05 K/uL (1.2-3.4); Mean Corpuscular Hemoglobin 29.8 pg (25.0-34.0); Mean Corpuscular Hgb Conc 32.8 g/dL (32.0-36.0); Mean Corpuscular Volume 90.9 fL (80.0-100.0); Mean Platelet Volume 9.8 fL (9.4-12.4); Monocytes # (auto) 0.69 K/uL (0.11-0.59); Monocytes % (auto) 9.9 %; Neutrophils # (auto) 5.07 K/uL (1.40-6.50); Neutrophils % (auto) 72.5 %; Nucleated RBC # (auto) 0.05 K/uL (0-0.12); Nucleated RBC % (auto) 0.7 %; Platelet Count 193 K/uL (130-400); RDW Coefficient of Variation 21.8 % (11.5-14.5); RDW Standard Deviation 71.4 fL (36.4-46.3); Red Blood Count 3.96 M/uL (4.70-6.10)
[2022-09-22] MEDS ORDERED: PANTOprazole 40 MG TAB PO ONE (09:00)
[2022-09-22 09:07] LABS: BUN Creatinine Ratio 25.3 (10-20); Calcium 9.1 mg/dl (8.6-10.3); Creatinine Clr Calc Pharmacy 68.1 ml/min; Est GFR (African American) 51.1 ml/min; Est GFR (Non-African American) 44.1 ml/min; Magnesium 2.2 mg/dl (1.7-2.4); Potassium 4.1 mmol/L (3.5-5.1)
[2022-09-22 09:10] LABS: Anisocytosis Present; Poikilocytosis Present; Polychromasia 1+
[2022-09-22] MEDS: ENOXAPARIN INJ 40 MG/0.4 ML SYR SQ SCH ×2 (09:20→20:54)
[2022-09-22] MEDS: ALUMINUM/MAGNESIUM SUSP 30 ML UDC PO PRN ×2 (10:25→17:28)
--- NOTE | 2022-09-22 11:29 | Cardiology Progress Note ---
Date of Service September 22, 2022 Assessment & Plan (1) Acute decompensated heart failure: (2) Cardiomyopathy: (3) AICD (automatic cardioverter/defibrillator) present: (4) Ventricular fibrillation: Plan 1. Decompensated heart failure: He continues to have orthopnea and signific ant lower extremity edema. Some improvement diuretics. He may require more aggressive therapy. Will watch his urine output throughout the course of the day and consider adding metolazone for this evening's dose. 2. Cardiomyopathy: Continue carvedilol and spironolactone. 3. normally functioning dual-chamber ICD. he does appear to have some pseudo fusion on telemetry. This may account for the high percentage of "ventricular pacing" noted during his interrogation. Will likely Re interrogate and possibly adjust the a to V timing. 4. Ventricular fibrillation: He has a history of ventricular arrhythmias best described as VF. He has had appropriate therapies previously. Recently. Continuing on amiodarone and carvedilol. Admission and Anticipated Discharge Date Admission Date: September 20, 2022 Subjective This morning the patient was complaining of some "indigestion". This appeared to start after dinner last evening and perhaps was worse after drinking a diet Coke. Some eructation and coughing. Also some orthopnea. He has been ambulatory to the bathroom without dizziness. Continued lower extremity edema though improved subjectively. Review of Systems Review of Systems: Per HPI Physical Exam Physical Exam: The patient is alert and oriented. Mood and affect appeared normal. He answered all questions appropriately. obese HEENT: Pupils are equal and reactive to light and accommodation. Extraocular movements are intact. The sclerae are anicteric. Neuro: Cranial nerves intact Lungs: Clear to auscultation bilaterally. He has good air movement without use of accessory muscles. No rales wheezes or rhonchi. Cardiac: Heart demonstrates a regular rate and rhythm. Normal S1 and S2. No murmurs on examination. Pulses: The patient has palpable radial pulses bilaterally that are equal in intensity Extremities: There was no evidence of hypoperfusion. There is no cyanosis or clubbing. severe lower extremity edema into the thighs bilaterally. Skin: I did not appreciate any rashes on examination today. legs are erythematous. Bandages on both legs. Results & Data Vital Signs (Past 12 Hours) Vital Signs Temp Pulse Pulse Resp BP Pulse Ox O2 Del Method 09/22/22 11:00 36.7 C 80 20 100/65 91 Room Air 09/22/22 10:28 Room Air 09/22/22 07:29 36.4 C L 85 18 100/65 92 Room Air 09/22/22 07:24 81 09/22/22 02:23 36.6 C 81 18 94/64 L 91 Room Air 09/21/22 23:57 23 96 O2 Flow Rate 09/22/22 11:00 09/22/22 10:28 09/22/22 07:29 09/22/22 07:24 09/22/22 02:23 09/21/22 23:57 2 Laboratory Results Abnormal Lab Results 09/21/22 09/21/22 09/21/22 11:42 16:52 20:17 WBC RBC Hgb Hct MCV MCH MCHC RDW Std Deviation RDW Coeff of Kylee Plt Count MPV Immature Gran % (Auto) Neut % (Auto) Lymph % (Auto) [place] % (Auto) Eos % (Auto) Baso % (Auto) Neut # (Auto) Lymph # (Auto) [place] # (Auto) Eos # (Auto) Baso # (Auto) Immature Gran # (Auto) Absolute Nucleated RBC Nucleated RBC % (auto) Polychromasia Poikilocytosis Anisocytosis Sodium Potassium Chloride Carbon Dioxide Anion Gap BUN Creatinine Est Cr Clr Drug Dosing Est GFR ( Amer) Est GFR (Non-Af Amer) BUN/Creatinine Ratio Glucose POC Glucose 137 H 116 H 124 H Calcium Magnesium 09/22/22 09/22/22 09/22/22 07:35 08:19 08:19 WBC 7.00 RBC 3.96 L Hgb 11.8 L Hct 36.0 L MCV 90.9 MCH 29.8 MCHC 32.8 RDW Std Deviation 71.4 H RDW Coeff of Kylee 21.8 H Plt Count 193 MPV 9.8 Immature Gran % (Auto) 0.4 Neut % (Auto) 72.5 Lymph % (Auto) 15.0 [place] % (Auto) 9.9 Eos % (Auto) 1.1 Baso % (Auto) 1.1 Neut # (Auto) 5.07 Lymph # (Auto) 1.05 L [place] # (Auto) 0.69 H Eos # (Auto) 0.08 Baso # (Auto) 0.08 Immature Gran # (Auto) 0.03 Absolute Nucleated RBC 0.05 Nucleated RBC % (auto) 0.7 Polychromasia 1+ Poikilocytosis Present Anisocytosis Present Sodium 136 Potassium 4.1 Chloride 101 Carbon Dioxide 25 Anion Gap 10 BUN 43 H Creatinine 1.70 H Est Cr Clr Drug Dosing 68.1 Est GFR ( Amer) 51.1 Est GFR (Non-Af Amer) 44.1 BUN/Creatinine Ratio 25.3 H Glucose 121 H POC Glucose 126 H Calcium 9.1 Magnesium 2.2 09/22/22 11:19 WBC RBC Hgb Hct MCV MCH MCHC RDW Std Deviation RDW Coeff of Kylee Plt Count MPV Immature Gran % (Auto) Neut % (Auto) Lymph % (Auto) [place] % (Auto) Eos % (Auto) Baso % (Auto) Neut # (Auto) Lymph # (Auto) [place] # (Auto) Eos # (Auto) Baso # (Auto) Immature Gran # (Auto) Absolute Nucleated RBC Nucleated RBC % (auto) Polychromasia Poikilocytosis Anisocytosis Sodium Potassium Chloride Carbon Dioxide Anion Gap BUN Creatinine Est Cr Clr Drug Dosing Est GFR ( Amer) Est GFR (Non-Af Amer) BUN/Creatinine Ratio Glucose POC Glucose 183 H Calcium Magnesium PG Care Time/CCT Total # of Minutes Spent Total Time Spent with Patient: Total time spent is greater than 50% in coordination of care (as documented) at patient's floor/unit and/or counseling patient: Coding Level of Care Code 32459 SUB INP/OBS CARE 2/35MIN Diagnoses Acute decompensated heart failure I50.9 Cardiomyopathy I42.9 AICD (automatic cardioverter/defibrillator) present Z95.810 Ventricular fibrillation I49.01
[2022-09-22] MEDS: ACETAMINOPHEN 325 MG TAB PO PRN (17:28)
[2022-09-22] MEDS: ATORVASTATIN 40 MG TAB PO SCH (20:58)
[2022-09-23 07:54] LABS: Basophils # (auto) 0.06 K/uL (0-0.2); Basophils % (auto) 0.9 %; Eosinophils # (auto) 0.11 K/uL (0-0.50); Eosinophils % (auto) 1.6 %; Hematocrit (blood only) 35.1 % (42.0-52.0); Hemoglobin 11.4 g/dl (14.0-18.0); Immature Granulocytes # (auto) 0.04 K/uL (0.01-0.20); Immature Granulocytes % (auto) 0.6 %; Lymphocytes # (auto) 0.99 K/uL (1.2-3.4); Lymphocytes % (auto) 14.1 %; Mean Corpuscular Hemoglobin 30.3 pg (25.0-34.0); Mean Corpuscular Hgb Conc 32.5 g/dL (32.0-36.0); Mean Corpuscular Volume 93.4 fL (80.0-100.0); Monocytes # (auto) 0.76 K/uL (0.11-0.59); Monocytes % (auto) 10.8 %; Neutrophils # (auto) 5.07 K/uL (1.40-6.50); Nucleated RBC # (auto) 0.04 K/uL (0-0.12); Nucleated RBC % (auto) 0.6 %; Platelet Count 192 K/uL (130-400); RDW Coefficient of Variation 21.9 % (11.5-14.5); RDW Standard Deviation 73.5 fL (36.4-46.3); Red Blood Count 3.76 M/uL (4.70-6.10); White Blood Count 7.03 K/ul (4.8-10.8)
--- NOTE | 2022-09-23 08:00 | Hospitalist Progress Note ---
Date of Service September 23, 2022 Assessment & Plan (1) Acute decompensated heart failure: (2) Severe obstructive sleep apnea: (3) AICD (automatic cardioverter/defibrillator) present: (4) CKD (chronic kidney disease), stage III: (5) Cardiomyopathy: (6) DVT prophylaxis: (7) GERD (gastroesophageal reflux disease): Plan Acute decompensated heart failure Chronic heart failure with reduced ejection fraction - X-ray in the ED showed cardiomegaly with pulmonary vascular congestion and trace bilateral pleural effusions. - Echo from jul 2022 - EF 30-35% - Diurese overnight- received 2mg IV BUMEX on arrival. - Patient remains fluid overloaded on physical exam this morning. Will continue with Bumex 2 mg IV twice daily - Continue carvedilol and spironolactone. - Cardiology consulted. -- Will be seen by [facility] for more thorough evaluation next week and possible aggressive management of patient's congestive heart failure. -- Continue with Bumex and monitor electrolyte and renal function closely. -Metolazone added to morning dose of Bumex. We will continue to monitor throughout the day. Potassium stable at this time. Gastroesophageal reflux disease Patient complaining of symptoms most consistent with GERD We will continue with his home Maalox. Added Protonix 40 mg every morning. Severe obstructive sleep apnea - CPAP autoPAP at night - patient compliant - no acute needs AICD (automatic cardioverter/defibrillator) present - Placed secondary to ventricular arrhythmias - Dual Chamber- DDDR low-70; tracking rate 120 - Continue Amiodarone and carvedilol for ventricular arrythmia prevention CKD (chronic kidney disease), stage III - CKD III- improved renal indices since prior admission - follow closely with diuresing DVT prophylaxis - Lovenox 40mg Sub q BID - follow renal function Admission and Anticipated Discharge Date Admission Date: September 20, 2022 Supervising Physician Co-Signing Physician Notes Resident Physician Supervision Note: I independently interviewed and examined the patient and verified the melendez history and physical, reviewed labs and image studies and agree with resident findings and care plan. Subjective Patient seen bedside this morning. States that he has been having some burping and sour taste this morning similar to yesterday. States that yesterday after he had his Protonix symptoms resolved but then came back this morning after eating breakfast. He also states that he is urinating a lot but his orthopnea and lower extremity edema have improved. Review of Systems Review of Systems: All systems reviewed & are unremarkable except as noted in Subjective Physical Exam Constitutional: + obese; no acute distress ENMT: external ear and nose normal, oropharynx normal Respiratory: normal respiratory effort, lungs clear to auscultation Cardiovascular: Rate/Rhythm: regular rate Extremities: + edema (Bilateral lower extremity) Gastrointestinal (Abdomen): normal bowel sounds, soft, nontender, no hepatosplenomegaly Skin: Blisters on the bilateral anterior tibial skin with wound coverings Neurologic: patellar DTR's 2+ bilat, sensation intact Psychiatric: A+Ox3, euthymic affect Results & Data Results & Data Vital Signs (Past 12 Hours) Vital Signs Temp Pulse Pulse Resp BP Pulse Ox O2 Del Method 09/23/22 07:02 80 09/23/22 02:53 36.4 C L 82 18 97/71 L 96 Nasal Cannula 09/23/22 00:44 17 97 09/23/22 00:00 80 09/22/22 22:52 36.6 C 82 18 94/62 L 90 Room Air 09/22/22 21:00 Room Air O2 Flow Rate 09/23/22 07:02 09/23/22 02:53 2 09/23/22 00:44 2 09/23/22 00:00 09/22/22 22:52 09/22/22 21:00 Resident Activity Tracking Resident Involvement: Resident Care Provided Care Provided: Adult Hospital Medicine
[2022-09-23 08:14] LABS: Anion Gap 7 (3-11); BUN Creatinine Ratio 27.2 (10-20); Blood Urea Nitrogen 44 mg/dl (6-23); Carbon Dioxide 28 mmol/L (21-32); Chloride 102 mmol/L (98-107); Creatinine Clr Calc Pharmacy 71.6 ml/min; Est GFR (African American) 54.2 ml/min; Est GFR (Non-African American) 46.7 ml/min; Glucose 133 mg/dl (70-99(Fasting)); Magnesium 2.3 mg/dl (1.7-2.4); Sodium 137 mmol/L (136-145)
[2022-09-23 08:37] LABS: Anisocytosis Present; Ovalocytes 1+; Polychromasia 1+
[2022-09-23] MEDS: INSULIN ASPART PER UNIT CHARGE SC SCH ×4 (08:46→20:22)
[2022-09-23] MEDS: SPIRONOLACTONE 12.5 MG TAB PO SCH (08:47)
[2022-09-23] MEDS: AMIODARONE 200 MG TAB PO SCH (08:47)
[2022-09-23] MEDS: ASPIRIN 81 MG ECTAB PO SCH (08:47)
[2022-09-23] MEDS: allopurinoL 100 MG TAB PO SCH (08:47)
[2022-09-23] MEDS: carvediloL 6.25 MG TAB PO SCH ×2 (08:47→20:21)
[2022-09-23] MEDS: allopurinoL 300 MG TAB PO SCH (08:47)
[2022-09-23] MEDS: CHOLECALCIFEROL 1,000 UNITS 25 MCG TAB PO SCH (08:47)
[2022-09-23] MEDS: ENOXAPARIN INJ 40 MG/0.4 ML SYR SQ SCH ×2 (08:48→23:42)
[2022-09-23] MEDS: BUMETANIDE 2 MG in SYRINGE 0 ML IV SCH ×2 (08:48→14:47)
[2022-09-23] MEDS: ALUMINUM/MAGNESIUM SUSP 30 ML UDC PO PRN ×2 (08:54→23:42)
[2022-09-23] MEDS: POTASSIUM CHLORIDE CRTAB 20 MEQ TABCR PO SCH ×2 (08:54→20:24)
[2022-09-23] MEDS ORDERED: PANTOprazole 40 MG TAB PO SCH (09:00)
[2022-09-23] MEDS ORDERED: metOLazone 5 MG TABLET PO ONE (09:00)
--- NOTE | 2022-09-23 17:40 | Cardiology Progress Note ---
Date of Service September 23, 2022 Assessment & Plan (1) Acute decompensated heart failure: (2) Cardiomyopathy: (3) AICD (automatic cardioverter/defibrillator) present: (4) Ventricular fibrillation: Plan 1. Decompensated heart failure: slowly improving. A electrolytes and renal function appeared to be stable. He received dose of metolazone this morning and this hopefully will intensify his diuresis. If his renal function looks good again tomorrow I would give another dose of metolazone in the morning. 2. Cardiomyopathy: Continue carvedilol and spironolactone. 3. normally functioning dual-chamber ICD. he does appear to have some pseudo fusion on telemetry. This may account for the high percentage of "ventricular pacing" noted during his interrogation. Pacing rate reduced to 70 beats per minute in an attempt to reduce pseudo fusion. 4. Ventricular fibrillation: He has a history of ventricular arrhythmias best described as VF. He has had appropriate therapies previously. Recently. Continuing on amiodarone and carvedilol. I will be away from the hospital tomorrow. Please contact the on-call [facility] food production worker for any specific questions. Our goal would be continued diuresis. Hopefully the combination of metolazone and bumetanide will affect more aggressive diuresis of that he can be discharged Monday or Monday and make his scheduled appointment at [facility] for possibly more advanced heart failure care. Admission and Anticipated Discharge Date Admission Date: September 20, 2022 Subjective this morning the patient claims to be feeling well. He admits to continued lower extremity edema but feels this is improving. Abdomen in knees are less tense. He has been ambulatory to the bathroom but not walking much farther. He did not report significant dizziness or lightheadedness. Still some orthopnea. Indigestion appears to have improved. Review of Systems Review of Systems: Per HPI Physical Exam Physical Exam: The patient is alert and oriented. Mood and affect appeared normal. He answered all questions appropriately. obese HEENT: Pupils are equal and reactive to light and accommodation. Extraocular movements are intact. The sclerae are anicteric. Neuro: Cranial nerves intact Lungs: Clear to auscultation bilaterally. He has good air movement without use of accessory muscles. No rales wheezes or rhonchi. Cardiac: Heart demonstrates a regular rate and rhythm. Normal S1 and S2. No murmurs on examination. Pulses: The patient has palpable radial pulses bilaterally that are equal in intensity Extremities: There was no evidence of hypoperfusion. There is no cyanosis or clubbing. severe lower extremity edema into the thighs bilaterally. Skin: I did not appreciate any rashes on examination today. legs are erythematous. Bandages on both legs. Results & Data Vital Signs (Past 12 Hours) Vital Signs Temp Pulse Pulse Resp BP Pulse Ox O2 Del Method 09/23/22 15:52 80 09/23/22 15:39 36.4 C L 80 20 107/73 92 Room Air 09/23/22 11:12 36.3 C L 77 20 103/74 91 Room Air 09/23/22 08:12 36.4 C L 87 19 103/72 97 Nasal Cannula 09/23/22 08:12 Room Air 09/23/22 07:02 80 O2 Flow Rate 09/23/22 15:52 09/23/22 15:39 09/23/22 11:12 09/23/22 08:12 2 09/23/22 08:12 09/23/22 07:02 Laboratory Results Abnormal Lab Results 09/22/22 09/23/22 09/23/22 20:08 06:51 06:51 WBC 7.03 RBC 3.76 L Hgb 11.4 L Hct 35.1 L MCV 93.4 MCH 30.3 MCHC 32.5 RDW Std Deviation 73.5 H RDW Coeff of Kylee 21.9 H Plt Count 192 MPV 10.0 Immature Gran % (Auto) 0.6 Neut % (Auto) 72.0 Lymph % (Auto) 14.1 [place] % (Auto) 10.8 Eos % (Auto) 1.6 Baso % (Auto) 0.9 Neut # (Auto) 5.07 Lymph # (Auto) 0.99 L [place] # (Auto) 0.76 H Eos # (Auto) 0.11 Baso # (Auto) 0.06 Immature Gran # (Auto) 0.04 Absolute Nucleated RBC 0.04 Nucleated RBC % (auto) 0.6 Polychromasia 1+ Anisocytosis Present Ovalocytes 1+ Sodium 137 Potassium 4.0 Chloride 102 Carbon Dioxide 28 Anion Gap 7 BUN 44 H Creatinine 1.62 H Est Cr Clr Drug Dosing 71.6 Est GFR ( Amer) 54.2 Est GFR (Non-Af Amer) 46.7 BUN/Creatinine Ratio 27.2 H Glucose 133 H POC Glucose 124 H Calcium 9.0 Magnesium 2.3 09/23/22 09/23/22 09/23/22 07:26 11:41 16:31 WBC RBC Hgb Hct MCV MCH MCHC RDW Std Deviation RDW Coeff of Kylee Plt Count MPV Immature Gran % (Auto) Neut % (Auto) Lymph % (Auto) [place] % (Auto) Eos % (Auto) Baso % (Auto) Neut # (Auto) Lymph # (Auto) [place] # (Auto) Eos # (Auto) Baso # (Auto) Immature Gran # (Auto) Absolute Nucleated RBC Nucleated RBC % (auto) Polychromasia Anisocytosis Ovalocytes Sodium Potassium Chloride Carbon Dioxide Anion Gap BUN Creatinine Est Cr Clr Drug Dosing Est GFR ( Amer) Est GFR (Non-Af Amer) BUN/Creatinine Ratio Glucose POC Glucose 130 H 137 H 118 H Calcium Magnesium PG Care Time/CCT Total # of Minutes Spent Total Time Spent with Patient: Total time spent is greater than 50% in coordination of care (as documented) at patient's floor/unit and/or counseling patient: Coding Level of Care Code 01474 SUB INP/OBS CARE 2/35MIN Diagnoses Acute decompensated heart failure I50.9 Cardiomyopathy I42.9 AICD (automatic cardioverter/defibrillator) present Z95.810 Ventricular fibrillation I49.01
[2022-09-23] MEDS: ATORVASTATIN 40 MG TAB PO SCH (20:21)
[2022-09-24] MEDS: PANTOprazole 40 MG TAB PO SCH (05:38)
--- NOTE | 2022-09-24 06:45 | Hospitalist Progress Note ---
Date of Service September 24, 2022 Assessment & Plan (1) Acute decompensated heart failure: (2) Severe obstructive sleep apnea: (3) AICD (automatic cardioverter/defibrillator) present: (4) CKD (chronic kidney disease), stage III: (5) Cardiomyopathy: (6) DVT prophylaxis: (7) GERD (gastroesophageal reflux disease): Plan Acute decompensated heart failure Chronic heart failure with reduced ejection fraction - X-ray in the ED showed cardiomegaly with pulmonary vascular congestion and trace bilateral pleural effusions. - Echo from jul 2022 - EF 30-35% - Diurese- received 2mg IV BUMEX on arrival. - Patient remains fluid overloaded on physical exam this morning is improving. Will continue with Bumex 2 mg IV twice daily - Continue carvedilol and spironolactone. - Cardiology consulted. -- Will be seen by [facility] for more thorough evaluation next week and possible aggressive management of patient's congestive heart failure. -- Continue with Bumex and monitor electrolyte and renal function closely. - Metolazone added to morning dose of Bumex the past two days. We will continue to monitor throughout the day. - Potassium 3.2. Will replete aggressively and recheck potassium at 1500. Gastroesophageal reflux disease Patient complaining of symptoms most consistent with GERD We will continue with his home Maalox. Added Protonix 40 mg every morning. Severe obstructive sleep apnea - CPAP autoPAP at night - patient compliant - no acute needs AICD (automatic cardioverter/defibrillator) present - Placed secondary to ventricular arrhythmias - Dual Chamber- DDDR low-70; tracking rate 120 - Continue Amiodarone and carvedilol for ventricular arrythmia prevention CKD (chronic kidney disease), stage III - CKD III- improved renal indices since prior admission - follow closely with diuresing DVT prophylaxis - Lovenox 40mg Sub q BID - follow renal function Admission and Anticipated Discharge Date Admission Date: September 20, 2022 Supervising Physician Co-Signing Physician Notes Resident Physician Supervision Note: I independently interviewed and examined the patient and verified the melendez history and physical, reviewed labs and image studies and agree with resident findings and care plan. Subjective Patient was seen bedside this morning. He states that he is urinating a lot but his orthopnea and lower extremity edema have improved vastly since admission. No other complaints or issues today. Review of Systems Review of Systems: All systems reviewed & are unremarkable except as noted in Subjective Physical Exam Constitutional: WD/WN, vitals as above + obese; no acute distress ENMT: external ear and nose normal, oropharynx normal Respiratory: normal respiratory effort, lungs clear to auscultation Cardiovascular: Rate/Rhythm: regular rate Extremities: + edema (Bilateral lower extremity) Gastrointestinal (Abdomen): normal bowel sounds, soft, nontender, no hepatosplenomegaly Skin: Blisters on the bilateral anterior lewis with wound coverings Neurologic: patellar DTR's 2+ bilat, sensation intact Psychiatric: A+Ox3, euthymic affect Results & Data Results & Data Vital Signs (Past 12 Hours) Vital Signs Temp Pulse Pulse Resp BP Pulse Ox O2 Del Method 09/24/22 03:50 36.5 C 72 18 99/66 L 97 Nasal Cannula 09/23/22 21:59 71 09/23/22 23:51 79 16 96 Nasal Cannula 09/23/22 23:12 36.5 C 70 16 100/65 91 Room Air 09/23/22 20:26 77 16 98 Nasal Cannula 09/23/22 19:39 36.6 C 69 18 100/65 90 Room Air 09/23/22 19:47 Room Air O2 Flow Rate 09/24/22 03:50 2 09/23/22 21:59 09/23/22 23:51 2 09/23/22 23:12 09/23/22 20:26 2 09/23/22 19:39 09/23/22 19:47 Resident Activity Tracking Resident Involvement: Resident Care Provided Care Provided: Adult Hospital Medicine
[2022-09-24 06:58] LABS: Basophils # (auto) 0.05 K/uL (0-0.2); Basophils % (auto) 0.7 %; Eosinophils # (auto) 0.12 K/uL (0-0.50); Eosinophils % (auto) 1.6 %; Hematocrit (blood only) 35.6 % (42.0-52.0); Hemoglobin 11.6 g/dl (14.0-18.0); Immature Granulocytes # (auto) 0.04 K/uL (0.01-0.20); Immature Granulocytes % (auto) 0.5 %; Lymphocytes # (auto) 1.03 K/uL (1.2-3.4); Mean Corpuscular Hemoglobin 29.4 pg (25.0-34.0); Mean Corpuscular Hgb Conc 32.6 g/dL (32.0-36.0); Mean Corpuscular Volume 90.4 fL (80.0-100.0); Mean Platelet Volume 10.1 fL (9.4-12.4); Monocytes # (auto) 0.69 K/uL (0.11-0.59); Monocytes % (auto) 9.4 %; Neutrophils # (auto) 5.43 K/uL (1.40-6.50); Neutrophils % (auto) 73.8 %; Nucleated RBC # (auto) 0.04 K/uL (0-0.12); Nucleated RBC % (auto) 0.5 %; Platelet Count 187 K/uL (130-400); RDW Coefficient of Variation 21.8 % (11.5-14.5); RDW Standard Deviation 70.3 fL (36.4-46.3); Red Blood Count 3.94 M/uL (4.70-6.10); White Blood Count 7.36 K/ul (4.8-10.8)
[2022-09-24 07:21] LABS: Anisocytosis Present; Ovalocytes 1+; Polychromasia 1+
[2022-09-24 07:25] LABS: BUN Creatinine Ratio 25.8 (10-20); Calcium 9.1 mg/dl (8.6-10.3); Creatinine Clr Calc Pharmacy 69.9 ml/min; Est GFR (African American) 53.8 ml/min; Est GFR (Non-African American) 46.4 ml/min; Potassium 3.2 mmol/L (3.5-5.1)
[2022-09-24] MEDS ORDERED: POTASSIUM CHLORIDE / WTR 10 MEQ/100 ML PLCT IV ONE (07:46)
[2022-09-24] MEDS: BUMETANIDE 2 MG in SYRINGE 0 ML IV SCH ×2 (07:56→14:53)
[2022-09-24] MEDS: SPIRONOLACTONE 12.5 MG TAB PO SCH (07:56)
[2022-09-24] MEDS: AMIODARONE 200 MG TAB PO SCH (07:56)
[2022-09-24] MEDS: ASPIRIN 81 MG ECTAB PO SCH (07:56)
[2022-09-24] MEDS: carvediloL 6.25 MG TAB PO SCH ×2 (07:56→22:22)
[2022-09-24] MEDS: allopurinoL 100 MG TAB PO SCH (07:56)
[2022-09-24] MEDS: allopurinoL 300 MG TAB PO SCH (07:56)
[2022-09-24] MEDS: CHOLECALCIFEROL 1,000 UNITS 25 MCG TAB PO SCH (07:56)
[2022-09-24] MEDS: POTASSIUM CHLORIDE CRTAB 20 MEQ TABCR PO SCH ×4 (08:05→22:27)
[2022-09-24] MEDS: INSULIN ASPART PER UNIT CHARGE SC SCH ×4 (08:06→22:23)
[2022-09-24] MEDS ORDERED: metOLazone 5 MG TABLET PO ONE (09:00)
[2022-09-24] MEDS: ENOXAPARIN INJ 40 MG/0.4 ML SYR SQ SCH ×2 (12:05→22:22)
[2022-09-24 15:48] LABS: BUN Creatinine Ratio 23.3 (10-20); Calcium 9.3 mg/dl (8.6-10.3); Creatinine Clr Calc Pharmacy 60.3 ml/min; Est GFR (Non-African American) 38.8 ml/min; Potassium 3.9 mmol/L (3.5-5.1)
[2022-09-24 17:11] LABS: Alanine Aminotransferase 31 U/L (7-52); Albumin Level 3.4 gm/dl (3.4-5.0); Alkaline Phosphatase 94 U/L (34-104); Aspartate Aminotransferase 41 U/L (13-39); Bilirubin,Total 5.4 mg/dl (0.2-1.0); Total Protein 6.2 gm/dl (6.0-8.3)
[2022-09-24] MEDS: ATORVASTATIN 40 MG TAB PO SCH (22:22)
[2022-09-24] MEDS: ACETAMINOPHEN 325 MG TAB PO PRN (22:27)
[2022-09-25] MEDS: PANTOprazole 40 MG TAB PO SCH (06:41)
[2022-09-25 07:03] LABS: Basophils # (auto) 0.04 K/uL (0-0.2); Basophils % (auto) 0.6 %; Eosinophils # (auto) 0.09 K/uL (0-0.50); Eosinophils % (auto) 1.4 %; Hematocrit (blood only) 34.7 % (42.0-52.0); Hemoglobin 11.4 g/dl (14.0-18.0); Immature Granulocytes # (auto) 0.03 K/uL (0.01-0.20); Immature Granulocytes % (auto) 0.5 %; Lymphocytes # (auto) 0.91 K/uL (1.2-3.4); Lymphocytes % (auto) 14.2 %; Mean Corpuscular Hemoglobin 30.2 pg (25.0-34.0); Mean Corpuscular Hgb Conc 32.9 g/dL (32.0-36.0); Mean Corpuscular Volume 91.8 fL (80.0-100.0); Mean Platelet Volume 9.4 fL (9.4-12.4); Monocytes # (auto) 0.67 K/uL (0.11-0.59); Monocytes % (auto) 10.5 %; Neutrophils # (auto) 4.65 K/uL (1.40-6.50); Neutrophils % (auto) 72.8 %; Nucleated RBC # (auto) 0.04 K/uL (0-0.12); Nucleated RBC % (auto) 0.6 %; Platelet Count 162 K/uL (130-400); RDW Coefficient of Variation 21.8 % (11.5-14.5); Red Blood Count 3.78 M/uL (4.70-6.10); White Blood Count 6.39 K/ul (4.8-10.8)
[2022-09-25 07:23] LABS: Calcium 9.3 mg/dl (8.6-10.3); Est GFR (African American) 50.4 ml/min; Est GFR (Non-African American) 43.5 ml/min; Potassium 3.2 mmol/L (3.5-5.1)
[2022-09-25 07:36] LABS: Anisocytosis Present; Ovalocytes 1+; Polychromasia 1+; Tear Drop Cells 1+
[2022-09-25] MEDS ORDERED: POTASSIUM CHLORIDE / WTR 10 MEQ/100 ML PLCT IV ONE (07:54)
[2022-09-25] MEDS ORDERED: POTASSIUM CHLORIDE CRTAB 20 MEQ TABCR PO STA (07:54)
[2022-09-25] MEDS: allopurinoL 100 MG TAB PO SCH (08:14)
[2022-09-25] MEDS: AMIODARONE 200 MG TAB PO SCH (08:14)
[2022-09-25] MEDS: allopurinoL 300 MG TAB PO SCH (08:14)
[2022-09-25] MEDS: carvediloL 6.25 MG TAB PO SCH ×2 (08:14→20:59)
[2022-09-25] MEDS: BUMETANIDE 2 MG in SYRINGE 0 ML IV SCH ×2 (08:15→15:17)
[2022-09-25] MEDS: ASPIRIN 81 MG ECTAB PO SCH (08:15)
[2022-09-25] MEDS: CHOLECALCIFEROL 1,000 UNITS 25 MCG TAB PO SCH (08:15)
[2022-09-25] MEDS: POTASSIUM CHLORIDE CRTAB 20 MEQ TABCR PO SCH ×2 (08:28→21:05)
[2022-09-25] MEDS: INSULIN ASPART PER UNIT CHARGE SC SCH ×4 (08:31→21:00)
[2022-09-25] MEDS: SPIRONOLACTONE 12.5 MG TAB PO SCH (08:40)
--- NOTE | 2022-09-25 10:57 | Hospitalist Progress Note ---
Date of Service September 25, 2022 Assessment & Plan (1) Acute decompensated heart failure: (2) Severe obstructive sleep apnea: (3) AICD (automatic cardioverter/defibrillator) present: (4) CKD (chronic kidney disease), stage III: (5) Cardiomyopathy: (6) DVT prophylaxis: (7) GERD (gastroesophageal reflux disease): Plan Acute decompensated heart failure Chronic heart failure with reduced ejection fraction - X-ray in the ED showed cardiomegaly with pulmonary vascular congestion and trace bilateral pleural effusions. - Echo from jul 2022 - EF 30-35% - Diurese- received 2mg IV BUMEX on arrival. - Patient remains fluid overloaded on physical exam this morning is improving. Will continue with Bumex 2 mg IV twice daily - Continue carvedilol and spironolactone. - Cardiology consulted. --Patient is to see cardiology in [place] on 09/27 to have a cardiac catheterization to determine if he is eligible for a heart pump. --Continue with Bumex and monitor electrolyte and renal function closely. - Metolazone added to morning dose of Bumex on 09/23 and 09/24. Metolazone should be given 30 minutes before Bumex. - Potassium 3.2. Will replete and recheck BMP in the a.m. Gastroesophageal reflux disease Patient complaining of symptoms most consistent with GERD We will continue with his home Maalox. Added Protonix 40 mg every morning. Severe obstructive sleep apnea - CPAP autoPAP at night - patient compliant - no acute needs AICD (automatic cardioverter/defibrillator) present - Placed secondary to ventricular arrhythmias - Dual Chamber- DDDR low-70; tracking rate 120 - Continue Amiodarone and carvedilol for ventricular arrythmia prevention CKD (chronic kidney disease), stage III - CKD III- improved renal indices since prior admission - follow closely with diuresing - Creatinine of 1.72 on 09/25 improved from 1.89 from the previous day DVT prophylaxis - Lovenox 40mg Sub q BID - follow renal function Dispo: Plan to discharge tomorrow so the patient is able to make appointment on Monday in [place]. Admission and Anticipated Discharge Date Admission Date: September 20, 2022 Supervising Physician Co-Signing Physician Notes I also saw the patient and confirmed melendez portions of the history and physical examination. I agree with the impression and plan as noted in the resident documentation. Upon our midmorning exam, the patient is lying practically supine in bed without complaints. He does note some discomfort at the site of his venous stasis ulcerations on his anterior shins, but otherwise feels well stating that he is breathing much easier. He is down about 22 pounds since admission, still in a negative daily fluid balance. EXAM 99/66, 70, 18, 36.3, 93% on room air Respirations are non-labored, lungs are clear Heart regular rate and rhythm Edematous lower extremities, into the thighs bilaterally, although improved per patient compared to days previous. Two bandaged wounds on the anterior shins bilaterally. DATA Hemoglobin 11.4 Potassium 3.2 BUN 43 Creatinine 1.72 IMPRESSION AND PLAN Acute decompensated heart failure With reduced ejection fraction/cardiomyopathy Continues to improve Hold Zaroxolyn today but continue other diuretics Replete potassium and recheck BMP in a.m. Dissipate discharge tomorrow in a.m. Has outpatient appointment Monday at [facility] for cardiac catheterization Additional per resident documentation Subjective Patient was seen bedside this morning. States that he is feeling better today. Still has some shortness of breath with lying down but has much improved and he has been able to lay down flat without issues. No other issues or complaints at this time. Review of Systems Review of Systems: All systems reviewed & are unremarkable except as noted in Subjective Physical Exam Constitutional: WD/WN, vitals as above + obese; no acute distress Respiratory: normal respiratory effort, lungs clear to auscultation Cardiovascular: Rate/Rhythm: regular rate Extremities: + edema (Bilateral lower extremity) Gastrointestinal (Abdomen): normal bowel sounds, soft, nontender, no hepatosplenomegaly Skin: Blisters on the bilateral anterior lewis with wound coverings Neurologic: patellar DTR's 2+ bilat, sensation intact Psychiatric: A+Ox3, euthymic affect Results & Data Results & Data Vital Signs (Past 12 Hours) Vital Signs Temp Pulse Pulse Resp BP Pulse Ox O2 Del Method 09/25/22 09:44 Room Air 09/25/22 07:40 36.5 C 70 20 95/62 L 95 Room Air 09/25/22 07:16 70 09/25/22 03:10 36.6 C 70 18 96/63 L 95 Nasal Cannula 09/24/22 23:00 71 16 95 Nasal Cannula O2 Flow Rate 09/25/22 09:44 09/25/22 07:40 09/25/22 07:16 09/25/22 03:10 1 09/24/22 23:00 2 Resident Activity Tracking Resident Involvement: Resident Care Provided Care Provided: Adult Hospital Medicine
[2022-09-25] MEDS: ENOXAPARIN INJ 40 MG/0.4 ML SYR SQ SCH ×2 (11:26→21:00)
[2022-09-25] MEDS ORDERED: POTASSIUM CHLORIDE CRTAB 20 MEQ TABCR PO ONE (11:30)
[2022-09-25] MEDS: ACETAMINOPHEN 325 MG TAB PO PRN ×2 (13:01→20:58)
[2022-09-25] MEDS ORDERED: MELATONIN 3 MG TAB PO PRN (19:48)
[2022-09-25] MEDS: ATORVASTATIN 40 MG TAB PO SCH (20:59)
[2022-09-26] MEDS: PANTOprazole 40 MG TAB PO SCH (05:46)
--- NOTE | 2022-09-26 07:05 | Discharge Summary ---
Date of Service September 26, 2022 Admission HPI Per Admitting Provider 57 YOM with HFrEF(30-35%), NICM, DMII, Dual Chamber AICD in place secondary to hx of Ventricular arrhythmia, HLD, Mitral Regurge, Morbid obesity, COTY, COVID, bronchitis. Patient denies any dyspnea, chest pain, worsening of his edema, but does endorse worsening orthopnea. 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 Patient was previously admitted to the ICU early in August 2022 for decompensation requiring inotrope support. He also had his Entresto discontinued at that time secondary to hypotension as well as diuretics adjusted, his carvedilol was also ouptitrated in the face of discontinuing Entresto. He has also been referred to [facility] heart failure clinic for evaluation of advanced therapies. He has an appointment there next week. Patient reports that he feels his weight is only up 0.5-1 lb at home. He does endorse poor exertion tolerance and inability to lie flat. In the EMD the patient was evaluate with routine labs to include HScTNI and BNP. His BNP is elevated to 1169 which has been steadily increasing over the past months. SOMMELIER is at 1.54 which is probably at his new baseline, this is down from previous at 1.6. He had ECG performed as well as CXR. He was given 2mg IV Bumex at 1830 and has not voided yet. We will have to watch his blood pressure and renal function closely. Cardiology consult placed for medication titration. Admission Exam Per Admitting Provider General: awake, alert, no apparent distress Head: Normocephalic, atraumatic ENT: PERRL, EOMI, no pharyngeal exudate, mucous membranes moist Neuro: AAO x 3, speech clear and appropriate, strength intact bilaterally 5/5, sensation intact and equal all extremities and dermatomes, no pronator drift Chest: equal rise and fall of the chest, no accessory muscle use, no heaves or thrills, Clear to auscultation, on room air, Cardiac: Regular rate and rhythm, telemetry reviewed- atrial paced, skin warm dry, cap refill <3 seconds, peripheral pulses +2 no JVD, Grade II systolic murmur, Pitting edema to knees bilaterally GI: NABS x 4 quadrants, soft, nontender to palpation, no rebound, guarding or tenderness : Spontaneously voiding, no pain, no CVA tenderness, Extremities: Normal inspection, no peripheral edema or erythema, calfs nontender to palpation Psych: Normal mood and affect Skin: chronic venous insufficiency Principal Diagnosis Acute on chronic HFrEF Discharge Exam Constitutional WD/WN, vitals as above + obese; no acute distress ENMT external ear and nose normal, oropharynx normal Respiratory normal respiratory effort, lungs clear to auscultation Cardiovascular Rate/Rhythm: regular rate Extremities: + edema (Bilateral lower extremity) Gastrointestinal (Abdomen) normal bowel sounds, soft, nontender, no hepatosplenomegaly Neurologic patellar DTR's 2+ bilat, sensation intact Psychiatric A+Ox3, euthymic affect Discharge Data Allergies Allergy/AdvReac Type Severity Reaction Status Date / Time mexiletine AdvReac Intermediate MADE ME Verified 09/20/22 18:49 SICK Consultations 09/20/22 18:34 ED Decision to Admit Stat 09/20/22 19:15 Consult Cardiology Routine Hospital Course (1) Acute decompensated heart failure: (2) Severe obstructive sleep apnea: (3) AICD (automatic cardioverter/defibrillator) present: (4) CKD (chronic kidney disease), stage III: (5) Cardiomyopathy: (6) DVT prophylaxis: (7) GERD (gastroesophageal reflux disease): Plan Acute decompensated heart failure Chronic heart failure with reduced ejection fraction - X-ray in the ED showed cardiomegaly with pulmonary vascular congestion and trace bilateral pleural effusions. - Echo from jul 2022 - EF 30-35% - Diurese-Bumex 2 mg twice daily. - Continued carvedilol and spironolactone. - Cardiology consulted. --Patient is to see cardiology in [place] on 09/27 to have a cardiac catheterization to determine if he is eligible for a heart pump. --Continue with Bumex and monitor electrolyte and renal function closely. - Metolazone added to morning dose of Bumex on 09/23 and 09/24. - Potassium remain stable though slightly low at 3.2 but repleted. - Was able to remove about 10 L of fluid during admission. Patient was satting well on room air and only had some slight lower extremity edema. He is good to be discharged at this time and should see cardiology in [place] tomorrow for cath. Gastroesophageal reflux disease Patient complaining of symptoms most consistent with GERD We will continue with his home Maalox. Added Protonix 40 mg every morning. Severe obstructive sleep apnea - CPAP autoPAP at night - patient compliant - no acute needs AICD (automatic cardioverter/defibrillator) present - Placed secondary to ventricular arrhythmias - Dual Chamber- DDDR low-70; tracking rate 120 - Continue Amiodarone and carvedilol for ventricular arrythmia prevention CKD (chronic kidney disease), stage III - CKD III- improved renal indices since prior admission - Creatinine remained relatively stable during admission. Total Time Total Time Spent Total Time Spent (In Minutes): Less than 30 Discharge Plan Discharge Items Patient Disposition: Home - Self-Care Reason For Visit: VOLUME OVERLOAD REQUEST FOR IV DIURESIS Discharge Diagnosis: Acute decompensated heart failure Activity: Resume your previous activity Non-emergency contact: Primary Care Provider and Admitting Representative Call non-emergency contact if: you have any medication questions, your pain is concerning for you and your temperature is above 101.5 Follow-up/Referrals: Tamar Boss [Primary Care Provider] - (in a week ) Leslie Ahuja PA-C [Physician Inspector [employer]] - 10/03/22 11:00 am Diet: Heart Healthy Addtl Attending Provider Instructions: You were admitted to the hospital for acute decompensated heart failure. You were treated with diuresis. A discharge summary will be sent to your primary care physician to ensure continuity of care. Please bring this discharge summary with you to your next office appointment so that your provider can review it at that time. Follow-up appointments: * Make a follow-up appointment with your PCP within the next week. It is very important that you follow up with them shortly after discharge from the hospital. * Keep all your follow-up appointments as already scheduled. If you cannot make an appointment, notify your provider. Medications: Your medication list has been reviewed and reconciled upon discharge to ensure accuracy and continuity of care. An updated list of all your medications is included with your hospital discharge paperwork. Please review this list closely, and make note of any changes. * No new medications were needed at this time. * If you have any issues filling these prescriptions, please call [phone] and ask to leave a message for Dr. Grossman. * Take your medications as instructed; do not skip a dose of your medicines. Make sure all of your doctors know every medicine you are taking (including [id number] medicines, vitamins, and supplements). Call your primary care provider before taking any new medicines (including over- the-counter medicines, vitamins, and supplements), because some of these may interact with your current medications, or may make your symptoms worse. Tell your primary care provider if you cannot afford your medications. CONTACT YOUR PRIMARY CARE PROVIDER if you experience any of the following: * Worsening of symptoms * Fever, chills, or fatigue * Difficulty following your treatment plan, or difficulty taking medications CALL 911 OR GO TO THE EMERGENCY DEPARTMENT if you experience any of the following: * Sudden, severe abdominal pain or nausea/vomiting * Severe chest pain, or chest pain that radiates (moves) to your jaw or arm * Sudden, severe shortness of breath or difficulty breathing Thank you for allowing us to participate in your care. Pending Studies at Discharge: No Stand-Alone Forms: [facility] [employer], Smoking Cessation Medications and DC Order Prescriptions: Continued (DME) CPAP Supplies Misc See Rx Instructions .MEDSUPPLY Qty: 1 0RF Rx Instructions: CPAP supplies. G47.33 (DME) Auto Titrating CPAP Misc See Rx Instructions .MEDSUPPLY Qty: 1 0RF Rx Instructions: Auto PAP with 10-20mm H20. Lifetime usage. G47.33 spironolactone 25 mg tablet 12.5 mg PO DAILY Qty: 45 3RF cholecalciferol (vitamin D3) 50 mcg (2,000 unit) capsule 50 mcg PO DAILY omega-3 fatty acids 1,250 mg capsule 1,250 mg PO DAILY multivitamin Tablet 1 tab PO DAILY albuterol sulfate 90 mcg/actuation HFA aerosol inhaler 2 puff INHALATION QID PRN (Reason: Shortness Of Breath Or Wheezing) allopurinol 100 mg tablet 100 mg PO DAILY Rx Instructions: TOTAL DOSE 400 MG--TAKES WITH 300 MG TAB. atorvastatin 80 mg tablet 80 mg PO HS metolazone 5 mg tablet 5 mg PO DAILY PRN (Reason: WT GAIN) Rx Instructions: take with Bumetanide allopurinol 300 mg tablet 300 mg PO DAILY Rx Instructions: TOTAL DOSE 400 MG-- TAKES WITH 100 MG TAB. aspirin 81 mg Tablet,Delayed Release (Dr/Ec) 81 mg PO QAM zinc acetate 25 mg (zinc) Capsule 0 mg PO DAILY Rx Instructions: PT UNSURE OF STRENGTH potassium chloride [Klor-Con M20] 20 mEq tablet,ER particles/crystals 40 meq PO BID Qty: 120 0RF (DME) blood-glucose meter [OneTouch Verio Meter] Misc See Rx Instructions .Route Qty: 1 0RF Rx Instructions: As directed (DME) OneTouch Verio test strips Strip See Rx Instructions .Route Qty: 100 0RF Rx Instructions: As directed once daily (DME) lancets [OneTouch Delica Lancets] 33 gauge misc See Rx Instructions .Route Qty: 100 0RF Rx Instructions: As directed once daily amiodarone 400 mg tablet 400 mg PO QAM carvedilol 6.25 mg Tablet 6.25 mg PO BID 30 Days Qty: 60 0RF bumetanide 2 mg tablet 2 mg PO BID Rx Instructions: TAKES QAM & AFTERNOON Discharge Orders: Discharge Order (Routine); Ordered 09/26/22 Ordered By: Blanco Grossman Admission Data Admit Date/Time: 09/20/22 19:15 Attending Provider: Alvarado Tom Admit Provider: Twin Khalil Primary Care Provider: Tamar Boss Other Providers: Twin Khalil ; Roberto Carlos Rubalcava ; Frank Carver [facility] ; Nani Woo Other Interventions: Discharge Summary Assessment (RN) Last Done: 09/26/22 13:00 Supervising Physician Co-Signing Physician Notes I personally examined the patient and verified all melendez points of history and exam, discussed case, and agree with decision making with Dr Grossman Feeling better, breathing better, would like to go home. Has procedure at [place] tomorrow. 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 Vitals noted, in general he is awake and alert pleasant no distress. HEENT n ormocephalic atraumatic mucous membranes moist. Breathing unlabored no accessory muscle use good effort. Skin shows no rashes no pallor or icterus. Neuro without focal deficits. Acute on chronic systolic CHF (acute on chronic HFrEF)for procedure at [place] tomorrow. Discussed sodium restriction. It appears safe to go home. Otherwise as above. Resident Activity Tracking Resident Involvement: Resident Care Provided Care Provided: Adult Hospital Medicine
[2022-09-26 08:31] LABS: Basophils # (auto) 0.06 K/uL (0-0.2); Eosinophils % (auto) 1.7 %; Hematocrit (blood only) 37.4 % (42.0-52.0); Hemoglobin 11.9 g/dl (14.0-18.0); Immature Granulocytes # (auto) 0.03 K/uL (0.01-0.20); Immature Granulocytes % (auto) 0.5 %; Lymphocytes # (auto) 0.85 K/uL (1.2-3.4); Lymphocytes % (auto) 14.1 %; Mean Corpuscular Hemoglobin 29.5 pg (25.0-34.0); Mean Corpuscular Hgb Conc 31.8 g/dL (32.0-36.0); Mean Corpuscular Volume 92.8 fL (80.0-100.0); Mean Platelet Volume 9.7 fL (9.4-12.4); Monocytes # (auto) 0.57 K/uL (0.11-0.59); Monocytes % (auto) 9.5 %; Neutrophils % (auto) 73.2 %; Nucleated RBC # (auto) 0.02 K/uL (0-0.12); Nucleated RBC % (auto) 0.3 %; Platelet Count 163 K/uL (130-400); RDW Coefficient of Variation 22.3 % (11.5-14.5); RDW Standard Deviation 73.7 fL (36.4-46.3); Red Blood Count 4.03 M/uL (4.70-6.10); White Blood Count 6.01 K/ul (4.8-10.8)
[2022-09-26 09:04] LABS: Ovalocytes 1+; Polychromasia 1+; Tear Drop Cells 1+
[2022-09-26 09:43] LABS: BUN Creatinine Ratio 25.8 (10-20); Calcium 9.6 mg/dl (8.6-10.3); Est GFR (African American) 53.8 ml/min; Est GFR (Non-African American) 46.4 ml/min; Potassium 3.3 mmol/L (3.5-5.1)
[2022-09-26] MEDS: INSULIN ASPART PER UNIT CHARGE SC SCH ×2 (09:50→12:06)
[2022-09-26] MEDS: ENOXAPARIN INJ 40 MG/0.4 ML SYR SQ SCH (09:52)
[2022-09-26] MEDS: BUMETANIDE 2 MG in SYRINGE 0 ML IV SCH (09:52)
[2022-09-26] MEDS: SPIRONOLACTONE 12.5 MG TAB PO SCH (09:52)
[2022-09-26] MEDS: CHOLECALCIFEROL 1,000 UNITS 25 MCG TAB PO SCH (09:53)
[2022-09-26] MEDS: ASPIRIN 81 MG ECTAB PO SCH (09:53)
[2022-09-26] MEDS: carvediloL 6.25 MG TAB PO SCH (09:53)
[2022-09-26] MEDS: POTASSIUM CHLORIDE CRTAB 20 MEQ TABCR PO SCH (09:53)
[2022-09-26] MEDS: allopurinoL 300 MG TAB PO SCH (09:54)
[2022-09-26] MEDS: allopurinoL 100 MG TAB PO SCH (09:54)
[2022-09-26] MEDS: AMIODARONE 200 MG TAB PO SCH (09:54)
[2022-09-26] MEDS ORDERED: POTASSIUM CHLORIDE CRTAB 20 MEQ TABCR PO ONE (12:00)
--- NOTE | 2022-09-26 16:43 | Billing Data ---
Date of Service September 26, 2022 Coding Level of Care Code 31266 IN/OBS DISCH 30 MIN/LESS
--- NOTE | 2022-09-26 17:44 | Cardiology Progress Note ---
Date of Service September 26, 2022 Assessment & Plan (1) Acute decompensated heart failure: (2) Cardiomyopathy: (3) AICD (automatic cardioverter/defibrillator) present: (4) Ventricular fibrillation: Plan 1. Decompensated heart failure: definitely improved. He has affected a g ood diuresis over the past several days. Still hypervolemic, but given his pending evaluation for advanced therapies it would seem reasonable discharge him with a re-evaluation tomorrow. 2. Cardiomyopathy: Continue carvedilol and spironolactone. 3. normally functioning dual-chamber ICD. he does appear to have some pseudo fusion on telemetry. This may account for the high percentage of "ventricular pacing" noted during his interrogation. Pacing rate reduced to 70 beats per minute in an attempt to reduce pseudo fusion. 4. Ventricular fibrillation: No arrhythmias while an inpatient. Admission and Anticipated Discharge Date Admission Date: September 20, 2022 Subjective this morning patient felt well. He has been ambulatory to the bathroom and back without significant dizziness or lightheadedness. He feels like he is transferring easier. He notices some reduction in the size of his legs. Easier to sleep lying flat. Review of Systems Review of Systems: Per HPI Physical Exam Physical Exam: The patient is alert and oriented. Mood and affect appeared normal. He answered all questions appropriately. obese HEENT: Pupils are equal and reactive to light and accommodation. Extraocular movements are intact. The sclerae are anicteric. Neuro: Cranial nerves intact Lungs: Clear to auscultation bilaterally. He has good air movement without use of accessory muscles. No rales wheezes or rhonchi. Cardiac: Heart demonstrates a regular rate and rhythm. Normal S1 and S2. No murmurs on examination. Pulses: The patient has palpable radial pulses bilaterally that are equal in intensity Extremities: There was no evidence of hypoperfusion. There is no cyanosis or clubbing. severe lower extremity edema into the thighs bilaterally. Skin: I did not appreciate any rashes on examination today. legs are erythematous. Bandages on both legs. Results & Data Vital Signs (Past 12 Hours) Vital Signs Temp Pulse Pulse Resp BP BP Pulse Ox 09/26/22 13:00 37 C 70 16 101/65 100/60 95 09/26/22 11:58 37 C 70 16 100/60 95 09/26/22 09:02 09/26/22 07:35 36.3 C L 76 16 101/96 95 09/26/22 07:29 72 O2 Del Method 09/26/22 13:00 09/26/22 11:58 Room Air 09/26/22 09:02 Room Air 09/26/22 07:35 Room Air 09/26/22 07:29 Laboratory Results Abnormal Lab Results 09/25/22 09/26/22 09/26/22 20:27 07:49 07:55 WBC 6.01 RBC 4.03 L Hgb 11.9 L Hct 37.4 L MCV 92.8 MCH 29.5 MCHC 31.8 L RDW Std Deviation 73.7 H RDW Coeff of Kylee 22.3 H Plt Count 163 MPV 9.7 Immature Gran % (Auto) 0.5 Neut % (Auto) 73.2 Lymph % (Auto) 14.1 Blanco % (Auto) 9.5 Eos % (Auto) 1.7 Baso % (Auto) 1.0 Neut # (Auto) 4.40 Lymph # (Auto) 0.85 L Blanco # (Auto) 0.57 Eos # (Auto) 0.10 Baso # (Auto) 0.06 Immature Gran # (Auto) 0.03 Absolute Nucleated RBC 0.02 Nucleated RBC % (auto) 0.3 Polychromasia 1+ Tear Drop Cells 1+ Ovalocytes 1+ Sodium Potassium Chloride Carbon Dioxide Anion Gap BUN Creatinine Est Cr Clr Drug Dosing Est GFR ( Amer) Est GFR (Non-Af Amer) BUN/Creatinine Ratio Glucose POC Glucose 138 H 111 H Calcium 09/26/22 09/26/22 07:55 11:26 WBC RBC Hgb Hct MCV MCH MCHC RDW Std Deviation RDW Coeff of Kylee Plt Count MPV Immature Gran % (Auto) Neut % (Auto) Lymph % (Auto) Blanco % (Auto) Eos % (Auto) Baso % (Auto) Neut # (Auto) Lymph # (Auto) Blanco # (Auto) Eos # (Auto) Baso # (Auto) Immature Gran # (Auto) Absolute Nucleated RBC Nucleated RBC % (auto) Polychromasia Tear Drop Cells Ovalocytes Sodium 139 Potassium 3.3 L Chloride 95 L Carbon Dioxide 38 H Anion Gap 6 BUN 42 H Creatinine 1.63 H Est Cr Clr Drug Dosing 68.0 Est GFR ( Amer) 53.8 Est GFR (Non-Af Amer) 46.4 BUN/Creatinine Ratio 25.8 H Glucose 100 H POC Glucose 159 H Calcium 9.6 PG Care Time/CCT Total # of Minutes Spent Total Time Spent with Patient: Total time spent is greater than 50% in coordination of care (as documented) at patient's floor/unit and/or counseling patient: Coding Level of Care Code 26383 SUB INP/OBS CARE 2/35MIN Diagnoses Acute decompensated heart failure I50.9 Cardiomyopathy I42.9 AICD (automatic cardioverter/defibrillator) present Z95.810 Ventricular fibrillation I49.01
== END 2022-09-26 13:35 | disposition home health service (06) | DRG 291 ==
LOC: ED 15:34 → EDINP 19:15 → SUATTDRO 19:15 → 2N 21:49

== ENCOUNTER 2022-12-15 23:17 | Observation (INO) ==
[2022-12-15] MEDS ORDERED: SODIUM CHLORIDE 0.9% 500 ML IV STA (23:58)
[2022-12-15] MEDS ORDERED: ONDANSETRON 4 MG OD TAB ONE (23:58)
--- NOTE | 2022-12-16 00:05 | Emergency Department Note ---
Impression & Plan Gastritis, Acute UTI Admit to the [facility]ist; consult general surgery ED Provider Note NAME: MISSY PIERRE AGE: 57 SEX: M ARRIVES VIA: Walk-In INFORMANT: Patient ED PROVIDER(S): Michaela Phipps DO CHIEF COMPLAINT: Abdominal discomfort and nausea PLAN: Disposition: Admit to the [facility] Condition: Fair MEDICAL DECISION MAKING: This is a 57-year-old male patient who presents to the emergency department with abdominal discomfort and nausea/vomiting. Twelve-lead EKG was obtained and revealed no signs of ischemia. Laboratory studies showed mild leukocytosis and a mildly elevated BUN. Creatinine was normal. Troponin was normal. Total bilirubin was 2 which was actually down from previous laboratory values. Patient went for CT scan of the abdomen/pelvis. This revealed a distended gallbladder with stones but no obvious gallbladder wall thickening. There were no other significant acute findings on the CT scan. The patient then went for ultrasound of the gallbladder. Again, this shows acute cholelithiasis with no evidence of acute cholecystitis. Urinalysis showed evidence of a urinary tract infection. The patient was treated with IV Rocephin. Unfortunately, the patient continued to complain of nausea and vomiting. He was given additional dose of IV antiemetics including IV Compazine. I did not feel the patient could be discharged home with this persistent vomiting. I discussed the case with the [facility] and they will evaluate for further inpatient care. They recommended evaluation by general surgery Triage Nursing notes reviewed and agree with them. External medical records reviewed including previous admission Vital Signs: reviewed and remarkable for no significant abnormalities Differential diagnosis: Cholecystitis, choledocholithiasis, gastritis, foodborne illness, cardiac ischemia ER treatment provided: retirement officer Twelve-lead EKG Zofran ODT IV Dilaudid IV Zofran IV Compazine IV normal saline bolus IV Pepcid IV normal saline drip IV Rocephin Diagnostics interpreted by me: ECG: Atrial paced rhythm with prolonged AV conduction unchanged from previous EKG-September, Cardiac Monitoring: Atrial paced rhythm at a rate of 85 Laboratory studies: See below Imaging studies: As per stat rad CT scan of the abdomen/pelvis: See report Ultrasound of the gallbladder: See report HPI: 57/M arrives for evaluation of nausea/vomiting. Patient has an LVAD in place and presents to the ER with nausea/vomiting. The patient ate some cold spaghetti earlier this evening and began to develop some GI upset with some vague discomfort in his epigastrium and chest. Patient has similar episode happen 3 days ago. PAST MEDICAL HISTORY:See Below PAST SURGICAL HISTORY:See Below FAMILY HISTORY:See Below SOCIAL HISTORY:See Below HOME MEDICATIONS:See list ALLERGIES:See list VITALS:See Below PHYSICAL EXAMINATION: HEENT: Head - normocephalic and atraumatic. Pupils are equal, round, and reactive to light. Extraocular eye muscles are intact, and sclera are anicteric. Nose - moist nasal mucosa without discharge. Mouth - moist buccal mucosa. Oropharynx is nonerythematous and there is no tonsillar exudate or edema noted. Neck: Supple; no JVD or cervical lymphadenopathy. Heart: Regular rate and rhythm. There is a normal S1 and S2 with no murmurs, clicks, or gallops appreciated. Lungs: Clear to auscultation bilaterally with no wheezes, rales, or rhonchi. Abdomen: Soft/slightly distended with moderate tenderness to palpation in the epigastrium and left upper quadrant. LVAD driveline wires in place. There are no palpable pulsatile masses or hepatosplenomegaly. There is no guarding, rigidity, or rebound noted. Extremities: No evidence of cyanosis, clubbing, or edema. There are easily palpable peripheral pulses. Skin: warm and dry with good turgor and no rashes. ED COURSE: Times/Reassessments: 2340: Patient was evaluated in room C11 IV initiation proved difficult. Patient was given Zofran ODT. An order was placed for continuous cardiac monitoring. The patient is in atrial paced rhythm at a rate of 85. A twelve-lead EKG was obtained. IV team attempted IV access. They were successful. The patient was bolused with 500 cc of normal saline solution. He went for CT scan of the abdomen/pelvis. Upon returning from radiology, the patient complained of increased epigastric abdominal pain. He was given IV Dilaudid and IV Zofran. This gave him moderate relief of his discomfort. He then went for ultrasound of the right upper quadrant. Upon returning from radiology, the patient was able to rest. Patient continued to describe a burping sensation with burning in the left upper quadrant of his abdomen. He was given a dose of IV Pepcid. I reviewed the results of the laboratory studies and the right upper quadrant ultrasound. Patient was able to give a urine specimen which appears to be infected. The patient was treated with a dose of IV Rocephin. Patient became nauseated again and had another episode of vomiting. At this point, the patient was given a dose of IV Compazine and the decision was made to admit the patient to the hospital. I discussed the case with the [facility] Hospitalist. They recommended discussing the case with general surgery. I discussed the case with Jay Padgett PA-C. 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 Dyslipidemia Dyspnea Elevated bilirubin Former smoker Hemoptysis Hypnagogic jerks Hypoxia Metabolic syndrome Non-rheumatic mitral regurgitation Obesity, morbid, BMI 40.0-49.9 Obstructive sleep apnea of adult Prerenal azotemia Restrictive lung disease Shortness of breath Systolic congestive heart failure Ventricular tachycardia (paroxysmal) Surgical History (Updated 10/16/22 @ 00:07 by Janey Arnett) AICD (automatic cardioverter/defibrillator) present Family History Other Cystic kidney disease Diabetes Dyslipidemia Heart disease Hypertension Social History Smoking Status: Never smoker Tobacco Type: Cigarettes Second Hand Exposure: No; Do You Dip or Chew Tobacco: No; Hx Alcohol Use: Yes Alcohol type: beer Hx Substance Use: Yes Last Used Substance: Unknown Last Used Substance Other:: last used more than 4 months ago Substance Use Type Other:: has not used for 4 months Preferred Language: [place] African Communication Ability: Effective Tanning Solution Maker Required: No Beliefs That Will Affect Care: Mandaen Mandaen Beliefs: would like a sod cutter notified if his condition declines Current Living Situation: Alone Current Living Situation Comment: From home alone 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 Feels Safe at Home: Yes Assistive Devices: CPAP and Glasses Allergies Allergies Allergy/AdvReac Type Severity Reaction Status Date / Time mexiletine AdvReac Intermediate MADE ME Verified 12/16/22 00:45 SICK Home Meds Home Medications Medication Instructions Recorded Confirmed omega-3 fatty acids 1,250 mg 1,250 mg PO DAILY 03/28/19 12/16/22 capsule multivitamin 1 tab PO DAILY 12/01/19 12/16/22 cholecalciferol (vitamin D3) 50 50 mcg PO DAILY 04/05/21 12/16/22 mcg (2,000 unit) capsule atorvastatin 80 mg tablet 80 mg PO HS 10/13/21 12/16/22 allopurinol 300 mg tablet 300 mg PO DAILY 12/27/21 12/16/22 metolazone 5 mg tablet 5 mg PO DAILY PRN WT GAIN 12/27/21 12/16/22 aspirin 81 mg tablet,delayed 81 mg PO QAM 04/07/22 12/16/22 release allopurinol 100 mg tablet 100 mg PO DAILY 07/10/22 12/16/22 amiodarone 400 mg tablet 200 mg PO QAM 08/19/22 12/16/22 bumetanide 2 mg tablet 2 mg PO BID 09/20/22 12/16/22 metoprolol succinate 25 mg 25 mg PO QAM 12/16/22 12/16/22 tablet,extended release 24 hr potassium chloride 20 mEq 20 meq PO QAM 12/16/22 12/16/22 tablet,extended release(part/cryst) (Klor-Con M) sacubitril 24 mg-valsartan 26 mg 1 tab PO BID 12/16/22 12/16/22 tablet (Entresto) spironolactone 25 mg tablet 25 mg PO QAM 12/16/22 12/16/22 warfarin 1 mg tablet 1.5 mg PO UD 12/16/22 12/16/22 Previous Rx's Medication Instructions Recorded Auto Titrating CPAP #1 ea 03/16/20 CPAP Supplies #1 ea 03/16/20 blood sugar diagnostic (OneTouch #100 ea 04/08/22 Verio test strips) blood-glucose meter (OneTouch #1 ea 04/08/22 Verio Meter) lancets 33 gauge (OneTouch Delica #100 ea 04/08/22 Lancets) Results & Data (ED) Vital Signs Vital Signs - 24 hr 12/15/22 23:22 12/15/22 23:35 12/16/22 01:00 Temperature 36.7 C Temperature Source Temporal Artery Scan Pulse Rate 80 88 Pulse Rate from SpO2 Sensor 81 Respiratory Rate 18 19 16 Respiratory Effort / Characteristics Non-Labored Spontaneous Respiratory Depth Normal Pulse Oximetry 98 98 Oxygen Delivery Method Room Air Room Air Room Air Oxygen Flow Rate Sepsis Recent Fever Within 48 Hours No Sepsis New/Unexplained Change in Mental Status No Sepsis Action Taken by Nursing No Action Required 12/15/22 23:35 12/16/22 03:16 12/16/22 02:00 Temperature Temperature Source Pulse Rate 80 89 82 Pulse Rate from SpO2 Sensor 83 Respiratory Rate 20 Respiratory Effort / Characteristics Respiratory Depth Pulse Oximetry 97 Oxygen Delivery Method Room Air Oxygen Flow Rate 3 Sepsis Recent Fever Within 48 Hours Sepsis New/Unexplained Change in Mental Status Sepsis Action Taken by Nursing 12/16/22 03:00 Temperature Temperature Source Pulse Rate 89 Pulse Rate from SpO2 Sensor Respiratory Rate 26 H Respiratory Effort / Characteristics Respiratory Depth Pulse Oximetry 99 Oxygen Delivery Method Room Air Oxygen Flow Rate 3 Sepsis Recent Fever Within 48 Hours Sepsis New/Unexplained Change in Mental Status Sepsis Action Taken by Nursing Laboratory Data 12/16/22 00:21 12/16/22 00:21 Lab Results 12/16/22 12/16/22 12/16/22 Range/Units 00:21 00:21 00:58 WBC 14.18 H (4.8-10.8) K/ul RBC 3.50 L (4.70-6.10) M/uL Hgb 10.5 L (14.0-18.0) g/dl POC Hgb 10.5 L (14.0-18.0) g/dl Hct 30.9 L (42.0-52.0) % POC Hct 31 L (42-52) % MCV 88.3 (80.0-100.0) fL MCH 30.0 (25.0-34.0) pg MCHC 34.0 (32.0-36.0) g/dL RDW Std Deviation 72.1 H (36.4-46.3) fL RDW Coeff of Kylee 22.5 H (11.5-14.5) % Plt Count 185 (130-400) K/uL MPV 10.0 (9.4-12.4) fL Immature Gran % (Auto) 0.7 % Neut % (Auto) 89.5 % Lymph % (Auto) 4.7 % Lyman % (Auto) 4.6 % Eos % (Auto) 0.3 % Baso % (Auto) 0.2 % Neut # (Auto) 12.70 H (1.40-6.50) K/uL Lymph # (Auto) 0.66 L (1.2-3.4) K/uL Lyman # (Auto) 0.65 H (0.11-0.59) K/uL Eos # (Auto) 0.04 (0-0.50) K/uL Baso # (Auto) 0.03 (0-0.2) K/uL Immature Gran # (Auto) 0.10 (0.01-0.20) K/uL Polychromasia 1+ Anisocytosis Present Echinocytes 1+ POC Sodium 137 (135-144) mmol/L Sodium 135 L (136-145) mmol/L POC Potassium 4.0 (3.3-5.0) mmol/L Potassium 3.9 (3.5-5.1) mmol/L POC Chloride 100 L (101-112) mmol/L Chloride 101 (98-107) mmol/L Carbon Dioxide 27 (21-32) mmol/L POC Total CO2 26 (24-31) mmol/L Anion Gap 7 (3-11) POC Anion Gap 16.0 (16-25) mmol/L POC BUN 25 H (7-18) mg/dl BUN 25 H (6-23) mg/dl Creatinine 1.20 (0.6-1.4) mg/dl POC Creatinine 1.2 (0.6-1.3) mg/dl Est Cr Clr Drug Dosing Not Reportable Est GFR ( Amer) 77.9 ml/min Est GFR (Non-Af Amer) 67.2 ml/min BUN/Creatinine Ratio 20.8 H (10-20) Glucose 150 H (70-99(Fasting)) mg/dl POC Glucose (other) 150 H (70-99) mg/dl Calcium 9.7 (8.6-10.3) mg/dl POC Ioniz Calcium Malachi 1.20 (1.12-1.32) mmol/l Total Bilirubin 2.0 H (0.2-1.0) mg/dl AST 26 (13-39) U/L ALT 20 (7-52) U/L Alkaline Phosphatase 90 (34-104) U/L Troponin I High Sens 12.0 (0-20) pg/ml Total Protein 7.3 (6.0-8.3) gm/dl Albumin 4.0 (3.4-5.0) gm/dl Globulin 3.3 (2.5-4.0) gm/dl Albumin/Globulin Ratio 1.2 (0.9-2) Lipase 31 (11-82) U/L Urine Color Urine Appearance (Clear) Urine pH (4.5-7.5) Ur Specific Bartow (1.000-1.030) Urine Protein (Negative) Urine Glucose (UA) (Negative) Urine Ketones (Negative) Urine Blood (Negative) Urine Nitrite (Negative) Urine Bilirubin (Negative) Urine Urobilinogen (Negative) Ur Leukocyte Esterase (Negative) Urine WBC (Auto) (0-5) /hpf Urine RBC (Auto) (0-4) /hpf U Hyaline Cast (Auto) (0-5) /lpf U Epithel Cells (Auto) (0-5) /lpf Urine Bacteria (Auto) (Negative) 12/16/22 Range/Units 02:04 WBC (4.8-10.8) K/ul RBC (4.70-6.10) M/uL Hgb (14.0-18.0) g/dl POC Hgb (14.0-18.0) g/dl Hct (42.0-52.0) % POC Hct (42-52) % MCV (80.0-100.0) fL MCH (25.0-34.0) pg MCHC (32.0-36.0) g/dL RDW Std Deviation (36.4-46.3) fL RDW Coeff of Kylee (11.5-14.5) % Plt Count (130-400) K/uL MPV (9.4-12.4) fL Immature Gran % (Auto) % Neut % (Auto) % Lymph % (Auto) % Lyman % (Auto) % Eos % (Auto) % Baso % (Auto) % Neut # (Auto) (1.40-6.50) K/uL Lymph # (Auto) (1.2-3.4) K/uL Lyman # (Auto) (0.11-0.59) K/uL Eos # (Auto) (0-0.50) K/uL Baso # (Auto) (0-0.2) K/uL Immature Gran # (Auto) (0.01-0.20) K/uL Polychromasia Anisocytosis Echinocytes POC Sodium (135-144) mmol/L Sodium (136-145) mmol/L POC Potassium (3.3-5.0) mmol/L Potassium (3.5-5.1) mmol/L POC Chloride (101-112) mmol/L Chloride (98-107) mmol/L Carbon Dioxide (21-32) mmol/L POC Total CO2 (24-31) mmol/L Anion Gap (3-11) POC Anion Gap (16-25) mmol/L POC BUN (7-18) mg/dl BUN (6-23) mg/dl Creatinine (0.6-1.4) mg/dl POC Creatinine (0.6-1.3) mg/dl Est Cr Clr Drug Dosing Est GFR ( Amer) ml/min Est GFR (Non-Af Amer) ml/min BUN/Creatinine Ratio (10-20) Glucose (70-99(Fasting)) mg/dl POC Glucose (other) (70-99) mg/dl Calcium (8.6-10.3) mg/dl POC Ioniz Calcium Malachi (1.12-1.32) mmol/l Total Bilirubin (0.2-1.0) mg/dl AST (13-39) U/L ALT (7-52) U/L Alkaline Phosphatase (34-104) U/L Troponin I High Sens (0-20) pg/ml Total Protein (6.0-8.3) gm/dl Albumin (3.4-5.0) gm/dl Globulin (2.5-4.0) gm/dl Albumin/Globulin Ratio (0.9-2) Lipase (11-82) U/L Urine Color Yellow Urine Appearance Clear (Clear) Urine pH 5.0 (4.5-7.5) Ur Specific Bartow 1.015 (1.000-1.030) Urine Protein Negative (Negative) Urine Glucose (UA) Negative (Negative) Urine Ketones Negative (Negative) Urine Blood Negative (Negative) Urine Nitrite Positive A (Negative) Urine Bilirubin Negative (Negative) Urine Urobilinogen Negative (Negative) Ur Leukocyte Esterase 1+ H (Negative) Urine WBC (Auto) 5-10 H (0-5) /hpf Urine RBC (Auto) 0-4 (0-4) /hpf U Hyaline Cast (Auto) 1-5 (0-5) /lpf U Epithel Cells (Auto) 5-10 H (0-5) /lpf Urine Bacteria (Auto) 2+ H (Negative) Administered Medications Sodium Chloride (Nss) 500 mls @ 125 mls/hr IV .Q4H SANDHYA Stop: 01/15/23 05:44 Last Admin: 12/16/22 05:53 Dose: 125 mls/hr Documented By: CECI Discontinued Medications Hydromorphone HCl (Hydromorphone Inj 0.5 Mg/0.5 Ml Syr) 0.5 mg IV NOW STA Stop: 12/16/22 01:45 Last Admin: 12/16/22 01:59 Dose: 0.5 mg Documented By: CECI Sodium Chloride (Nss) 500 mls @ 999 mls/hr IV .Q31M STA Stop: 12/16/22 00:28 Last Infusion: 12/16/22 01:00 Dose: 0 mls/hr Documented By: Admin: 12/16/22 00:29 Dose: 999 mls/hr Documented By: CECI Ceftriaxone Sodium (Rocephin) 2,000 mg in 70 mls @ 140 mls/hr IV NOW STA Stop: 12/16/22 04:20 Last Infusion: 12/16/22 04:36 Dose: 0 mls/hr Documented By: Admin: 12/16/22 04:06 Dose: 140 mls/hr Documented By: CECI Famotidine (Pepcid 20mg Iv Push) 20 mg in 5 mls @ 2.5 mls/min IV NOW STA Stop: 12/16/22 04:12 Last Admin: 12/16/22 04:57 Dose: 2.5 mls/min Documented By: CECI Prochlorperazine (Compazine) 1 mls @ 1 mls/min IV ONE ONE Stop: 12/16/22 05:39 Last Admin: 12/16/22 05:42 Dose: 1 mls/min Documented By: GABY Ioversol (Optiray 320 100ml) 100 ml IV ONCE ONE Stop: 12/16/22 01:34 Last Admin: 12/16/22 01:33 Dose: 93 ml Documented By: NAOMI Ondansetron HCl (Ondansetron 4 Mg Od Tab) Confirm Administered Dose 4 mg .ROUTE .STK-MED ONE Stop: 12/15/22 23:59 Last Admin: 12/16/22 00:00 Dose: 4 mg Documented By: CECI Ondansetron HCl (Ondansetron 4 Mg Od Tab) 4 mg PO NOW STA Stop: 12/16/22 01:23 Last Admin: 12/16/22 01:23 Dose: Not Given Documented By: CECI Ondansetron HCl (Ondansetron Inj 2 Mg/Ml 2 Ml Vial) 4 mg IV NOW STA Stop: 12/16/22 01:45 Last Admin: 12/16/22 01:57 Dose: 4 mg Documented By: CECI Imaging Data Radiologist's Impression: Abdomen/Pelvis CT 12/16/22 01:01 Exam(s): CT ABDOMEN + PELVIS With Contrast IV Amt: 93 ML OPTIRAY 320 EXAM: CT Abdomen and Pelvis With Intravenous Contrast CLINICAL HISTORY: Reason for exam: epigastric abd pain; gas. TECHNIQUE: Axial computed tomography images of the abdomen and pelvis with intravenous contrast. Automated exposure control was utilized for the study. A dose lowering technique was utilized adhering to the principles of ALARA. CONTRAST: Patient received 93 ML OPTIRAY 320 of IV contrast COMPARISON: CT December 01, 2019. FINDINGS: Lung bases: Unremarkable. No mass. No consolidation. ABDOMEN: Liver: Unremarkable. No mass. Gallbladder and bile ducts: Distended gallbladder with gallstones. No ductal dilatation. Pancreas: Unremarkable. No mass. No ductal dilation. Spleen: Splenomegaly with a spleen length measuring up to 21.7 cm. Adrenals: Unremarkable. No mass. Kidneys and ureters: 6 mm nonobstructing calculus in the right kidney. Stomach and bowel: Unremarkable. No obstruction. No mucosal thickening. PELVIS: Appendix: No findings to suggest acute appendicitis. Bladder: Unremarkable. No mass. Reproductive: Unremarkable as visualized. ABDOMEN and PELVIS: Intraperitoneal space: Unremarkable. No free air. No significant fluid collection. Bones/joints: No acute fracture. No dislocation. Soft tissues: Unremarkable. Vasculature: Unremarkable. No abdominal aortic aneurysm. Lymph nodes: Unremarkable. No enlarged lymph nodes. Tubes, lines and devices: Left ventricular assist device is in place. IMPRESSION: No acute findings in the abdomen or pelvis. Gallstones. Splenomegaly. Nonobstructing right renal calculus. Electronically signed by: Missy Mccann MD 12/16/22 02:19 AM Gallbladder Ultrasound 12/16/22 01:52 Exam(s): US GALLBLADDER EXAM: US Abdomen Limited, Gallbladder CLINICAL HISTORY: Reason for exam: eval gallbladder. TECHNIQUE: Real-time ultrasound of the right upper quadrant with image documentation. COMPARISON: No relevant prior studies available. FINDINGS: Gallbladder: Distended gallbladder with sludge and stones. No gallbladder wall thickening. No pericholecystic fluid. Common bile duct: Unremarkable as visualized. No stones. No dilation. Pancreas: Unremarkable as visualized. Right kidney: Appearance of a calculus in the right kidney. No hydronephrosis or perinephric fluid. 3.3 x 4.0 x 3.0 cm cyst in the right kidney. IMPRESSION: Distended gallbladder with gallstones. No gallbladder wall thickening or pericholecystic fluid. No bile duct dilatation. Electronically signed by: Missy Mccann MD 12/16/22 03:29 AM Discharge Plan Visit Data Chief Complaint: Chest Pain Stated Complaint: CHEST PAIN,VOMIT,GUT HURTS ED Provider: Michaela Phipps Discharge Problem: Gastritis, Acute UTI Forms Stand Alone Forms: [employer] [facility] Prescriptions Prescriptions: No Action (DME) CPAP Supplies Misc See Rx Instructions .MEDSUPPLY Qty: 1 0RF Rx Instructions: CPAP supplies. G47.33 (DME) Auto Titrating CPAP Misc See Rx Instructions .MEDSUPPLY Qty: 1 0RF Rx Instructions: Auto PAP with 10-20mm H20. Lifetime usage. G47.33 cholecalciferol (vitamin D3) 50 mcg (2,000 unit) capsule 50 mcg PO DAILY omega-3 fatty acids 1,250 mg capsule 1,250 mg PO DAILY multivitamin Tablet 1 tab PO DAILY allopurinol 100 mg tablet 100 mg PO DAILY Rx Instructions: TOTAL DOSE 400 MG--TAKES WITH 300 MG TAB. spironolactone 25 mg tablet 25 mg PO QAM potassium chloride [Klor-Con M20] 20 mEq tablet,ER particles/crystals 20 meq PO QAM Entresto 24-26 mg tablet 1 tab PO BID warfarin 1 mg tablet 1.5 mg PO UD Rx Instructions: according coumadin clinic metoprolol succinate 25 mg tablet extended release 24 hr 25 mg PO QAM atorvastatin 80 mg tablet 80 mg PO HS metolazone 5 mg tablet 5 mg PO DAILY PRN (Reason: WT GAIN) Rx Instructions: take with Bumetanide allopurinol 300 mg tablet 300 mg PO DAILY Rx Instructions: TOTAL DOSE 400 MG-- TAKES WITH 100 MG TAB. aspirin 81 mg Tablet,Delayed Release (Dr/Ec) 81 mg PO QAM (DME) blood-glucose meter [OneTouch Verio Meter] Misc See Rx Instructions .Route Qty: 1 0RF Rx Instructions: As directed (DME) OneTouch Verio test strips Strip See Rx Instructions .Route Qty: 100 0RF Rx Instructions: As directed once daily (DME) lancets [OneTouch Delica Lancets] 33 gauge misc See Rx Instructions .Route Qty: 100 0RF Rx Instructions: As directed once daily amiodarone 400 mg tablet 200 mg PO QAM Rx Instructions: 1/2 tablet dose bumetanide 2 mg tablet 2 mg PO BID Rx Instructions: TAKES QAM & AFTERNOON Referrals Referrals: Tamar Boss [Primary Care Provider] - Gastritis Qualifiers: Gastritis type: unspecified gastritis Chronicity: acute Gastritis bleeding: without bleeding Qualified Code(s): K29.00 - Acute gastritis without bleeding
[2022-12-16 00:50] LABS: Alanine Aminotransferase 20 U/L (7-52); Albumin Globulin Ratio 1.2 (0.9-2); Alkaline Phosphatase 90 U/L (34-104); Anion Gap 7 (3-11); Aspartate Aminotransferase 26 U/L (13-39); BUN Creatinine Ratio 20.8 (10-20); Blood Urea Nitrogen 25 mg/dl (6-23); Calcium 9.7 mg/dl (8.6-10.3); Carbon Dioxide 27 mmol/L (21-32); Chloride 101 mmol/L (98-107); Est GFR (African American) 77.9 ml/min; Est GFR (Non-African American) 67.2 ml/min; Globulin 3.3 gm/dl (2.5-4.0); Glucose 150 mg/dl (70-99(Fasting)); Lipase 31 U/L (11-82); Potassium 3.9 mmol/L (3.5-5.1); Sodium 135 mmol/L (136-145); Total Protein 7.3 gm/dl (6.0-8.3)
[2022-12-16 00:55] LABS: Basophils # (auto) 0.03 K/uL (0-0.2); Basophils % (auto) 0.2 %; Eosinophils # (auto) 0.04 K/uL (0-0.50); Eosinophils % (auto) 0.3 %; Hematocrit (blood only) 30.9 % (42.0-52.0); Hemoglobin 10.5 g/dl (14.0-18.0); Immature Granulocytes % (auto) 0.7 %; Lymphocytes # (auto) 0.66 K/uL (1.2-3.4); Lymphocytes % (auto) 4.7 %; Mean Corpuscular Volume 88.3 fL (80.0-100.0); Monocytes # (auto) 0.65 K/uL (0.11-0.59); Monocytes % (auto) 4.6 %; Neutrophils % (auto) 89.5 %; Platelet Count 185 K/uL (130-400); RDW Coefficient of Variation 22.5 % (11.5-14.5); RDW Standard Deviation 72.1 fL (36.4-46.3); White Blood Count 14.18 K/ul (4.8-10.8)
[2022-12-16 01:11] LABS: iSTAT Creatinine 1.2 mg/dl (0.6-1.3); iSTAT Hemoglobin 10.5 g/dl (14.0-18.0); iSTAT Ionized Calcium 1.2 mmol/l (1.12-1.32)
[2022-12-16 01:13] LABS: Anisocytosis Present; Echinocytes 1+; Polychromasia 1+
[2022-12-16] MEDS ORDERED: ONDANSETRON 4 MG OD TAB PO STA (01:22)
[2022-12-16] MEDS ORDERED: OPTIRAY 320 100ml IV ONE (01:33)
[2022-12-16] MEDS ORDERED: HYDROmorphone INJ 0.5 MG/0.5 ML SYR IV STA (01:44)
[2022-12-16] MEDS ORDERED: ONDANSETRON INJ 2 MG/ML 2 ML VIAL IV STA (01:44)
[2022-12-16 02:13] LABS: Appearance Urine Clear (Clear); Bacteria Urine Automated 2+ (Negative); Bilirubin Urine Negative (Negative); Blood Urine Negative (Negative); Color Urine Yellow; Glucose Urine UA Negative (Negative); Ketones Urine Negative (Negative); Leukocyte Esterase Urine 1+ (Negative); Nitrite Urine Positive (Negative); Protein Urine Negative (Negative); RBC Urine Automated 0-4 /hpf (0-4); Specific Gravity Urine 1.015 (1.000-1.030); Urobilinogen Urine Negative (Negative)
--- NOTE | 2022-12-16 02:20 | CT Scan Report ---
Exam(s): CT ABDOMEN + PELVIS With Contrast IV Amt: 93 ML OPTIRAY 320 EXAM: CT Abdomen and Pelvis With Intravenous Contrast CLINICAL HISTORY: Reason for exam: epigastric abd pain; gas. TECHNIQUE: Axial computed tomography images of the abdomen and pelvis with intravenous contrast. Automated exposure control was utilized for the study. A dose lowering technique was utilized adhering to the principles of ALARA. CONTRAST: Patient received 93 ML OPTIRAY 320 of IV contrast COMPARISON: CT December 01, 2019. FINDINGS: Lung bases: Unremarkable. No mass. No consolidation. ABDOMEN: Liver: Unremarkable. No mass. Gallbladder and bile ducts: Distended gallbladder with gallstones. No ductal dilatation. Pancreas: Unremarkable. No mass. No ductal dilation. Spleen: Splenomegaly with a spleen length measuring up to 21.7 cm. Adrenals: Unremarkable. No mass. Kidneys and ureters: 6 mm nonobstructing calculus in the right kidney. Stomach and bowel: Unremarkable. No obstruction. No mucosal thickening. PELVIS: Appendix: No findings to suggest acute appendicitis. Bladder: Unremarkable. No mass. Reproductive: Unremarkable as visualized. ABDOMEN and PELVIS: Intraperitoneal space: Unremarkable. No free air. No significant fluid collection. Bones/joints: No acute fracture. No dislocation. Soft tissues: Unremarkable. Vasculature: Unremarkable. No abdominal aortic aneurysm. Lymph nodes: Unremarkable. No enlarged lymph nodes. Tubes, lines and devices: Left ventricular assist device is in place. IMPRESSION: No acute findings in the abdomen or pelvis. Gallstones. Splenomegaly. Nonobstructing right renal calculus. Electronically signed by: Lenard Mccann MD 12/16/22 02:19 AM
--- NOTE | 2022-12-16 03:30 | Ultrasound Report ---
Exam(s): US GALLBLADDER EXAM: US Abdomen Limited, Gallbladder CLINICAL HISTORY: Reason for exam: eval gallbladder. TECHNIQUE: Real-time ultrasound of the right upper quadrant with image documentation. COMPARISON: No relevant prior studies available. FINDINGS: Gallbladder: Distended gallbladder with sludge and stones. No gallbladder wall thickening. No pericholecystic fluid. Common bile duct: Unremarkable as visualized. No stones. No dilation. Pancreas: Unremarkable as visualized. Right kidney: Appearance of a calculus in the right kidney. No hydronephrosis or perinephric fluid. 3.3 x 4.0 x 3.0 cm cyst in the right kidney. IMPRESSION: Distended gallbladder with gallstones. No gallbladder wall thickening or pericholecystic fluid. No bile duct dilatation. Electronically signed by: Lneard Mccann MD 12/16/22 03:29 AM
[2022-12-16] MEDS ORDERED: cefTRIAXone SODIUM 2,000 MG/70 ML BAG IV STA (03:51)
[2022-12-16] MEDS ORDERED: FAMOTIDINE 20MG IV PUSH 20 MG/5 ML SYR IV STA (04:11)
[2022-12-16] MEDS ORDERED: PROCHLORPERAZINE 1 ML IV ONE (05:38)
[2022-12-16] MEDS ORDERED: SODIUM CHLORIDE 0.9% 500 ML IV SCH (05:45)
--- NOTE | 2022-12-16 06:29 | Surgery Consultation ---
Date of Consultation December 16, 2022 Assessment & Plan (1) Abdominal pain: I discussed with the treating emergency room physician and he is being admitted on the hospitalist service. Is unclear if the patient's symptomatology is related to cholecystitis. As noted review of patient's labs show the patient has a somewhat chronically elevated bilirubin which has improved since his LVAD was placed. Review of previous abdominal imaging does reveal patient has a history of gallstones with no prior cholecystitis. In order to better ascertain if patient is suffering from cholecystitis the medical service is planning on performing a HIDA scan. If patient's HIDA scan is revealing for cholecystitis transfer to higher level of care may be required due to the patient's history of congestive heart failure and recent LVAD placement. Additional recommendations will be forthcoming based on his clinical course as unfolds as well as his pending HIDA scan. Supervising Physician Co-Signing Physician Notes I personally saw and evaluated the patient with Brett Padgett PA-C and agree with the assessment and plan. 57-year-old male with cholelithiasis, imaging findings concerning for cholecystitis, history of LVAD placement in October 09 for CHF with EF of 20% His ultrasound and CT images and results were personally viewed by myself Unclear if he has cholecystitis but he is certainly tender on exam with gallstones He is being admitted to the medical service and they will obtain a HIDA scan to rule out acute cholecystitis If the HIDA scan is positive he is not a surgical candidate due to his LVAD and severely reduced EF with his CHF He would need to be transferred for percutaneous cholecystostomy tube versus Axios stent placement with GI History of Present Illness Reason for Consultation: Abdominal pain History of Present Illness This is a 57-year male who presented to the emergency department secondary to abdominal pain as well as nausea and vomiting. Patient says that he has had nausea and vomiting for approximately 3 days. Patient also reports some abdominal pain that is located across the top of his abdomen which appears to be greatest in the epigastric area and to a lesser degree the right upper quadrant. He denies any fevers, shakes, or chills. He does not note any modifying fa ctors to his pain. He also notes the pain does not radiate. Patient notes that he has had no intra-abdominal surgeries but he does have an LVAD in place that was placed at [facility] and he believes part of the LVAD drivetrain was inserted into his abdomen. Concerning the patient's LVAD, he says that this was placed for congestive heart failure and he has an ejection fraction of alpesh roximately 20%. He also has an ICD in place but notes that this has not delivered any shocks. Since arrival to the emergency department the patient has had labs and imaging which independent reviewed. The CT scan of the abdomen pelvis showed gallstones with a distended gallbladder. But there is no other signs of acute cholecystitis. Chest x-ray showed some increased pulmonary vascular congestion. Patient also had a gallbladder ultrasound that showed a distended gallbladder with gallstones. There is no gallbladder wall thickening or pericholecystic fluid. The patient's labs include a CBC her white blood cell count was elevated at 14.1. Hemoglobin and hematocrit were 10.5 and 30.9. Platelet count was 185,000. Chemistry profile showed sodium was 135 with a potassium of 3.9. BUN and creatinine were 25 and 1.2. Patient's total bilirubin is elevated at 2.0. His transaminases and alkaline phosphatase along with his lipase were nonelevated. Review of patient's LFTs previously showed that patient appeared to have chronic elevation of his bilirubin but this is improved since his LVAD was placed. Urinalysis showed that patient's urine specimen was positive for nitrite as well as 1+ leukocyte Estrace. There were 10 white blood cells per high-power field and 2+ bacteria. A COVID test is pending. Coagulation studies are pending as well. I discussed with the treating emergency room physician and the patient did receive some symptomatic relief with Pepcid in the emergency department but shortly thereafter the patient had further episodes of emesis and they felt that the patient was not fit for discharge home and requested medical medicine to admit the patient to the hospital. Due to the patient's history of LVAD and concern for possible cholecystitis surgical consultation was requested. At the time of my interview the patient was resting comfortably in bed and he was in no distress Allergies Allergy/AdvReac Type Severity Reaction Status Date / Time mexiletine AdvReac Intermediate MADE ME Verified 12/16/22 00:45 SICK Home Medications Medication Instructions Recorded Confirmed Type omega-3 fatty acids 1,250 mg 1,250 mg PO DAILY 03/28/19 12/16/22 History capsule multivitamin 1 tab PO DAILY 12/01/19 12/16/22 History Auto Titrating CPAP #1 ea 03/16/20 12/16/22 Rx CPAP Supplies #1 ea 03/16/20 12/16/22 Rx cholecalciferol (vitamin D3) 50 50 mcg PO DAILY 04/05/21 12/16/22 History mcg (2,000 unit) capsule atorvastatin 80 mg tablet 80 mg PO HS 10/13/21 12/16/22 History allopurinol 300 mg tablet 300 mg PO DAILY 12/27/21 12/16/22 History metolazone 5 mg tablet 5 mg PO DAILY PRN WT GAIN 12/27/21 12/16/22 History aspirin 81 mg tablet,delayed 81 mg PO QAM 04/07/22 12/16/22 History release blood sugar diagnostic (OneTouch #100 ea 04/08/22 12/16/22 Rx Verio test strips) blood-glucose meter (OneTouch #1 ea 04/08/22 12/16/22 Rx Verio Meter) lancets 33 gauge (OneTouch Delica #100 ea 04/08/22 12/16/22 Rx Lancets) allopurinol 100 mg tablet 100 mg PO DAILY 07/10/22 12/16/22 History amiodarone 400 mg tablet 200 mg PO QAM 08/19/22 12/16/22 History bumetanide 2 mg tablet 2 mg PO BID 09/20/22 12/16/22 History metoprolol succinate 25 mg 25 mg PO QAM 12/16/22 12/16/22 History tablet,extended release 24 hr potassium chloride 20 mEq 20 meq PO QAM 12/16/22 12/16/22 History tablet,extended release(part/cryst) (Klor-Con M) sacubitril 24 mg-valsartan 26 mg 1 tab PO BID 12/16/22 12/16/22 History tablet (Entresto) spironolactone 25 mg tablet 25 mg PO QAM 12/16/22 12/16/22 History warfarin 1 mg tablet 1.5 mg PO UD 12/16/22 12/16/22 History Patient History Medical History Acute decompensated heart failure Bronchiolitis due to respiratory syncytial virus (RSV) Cardiomyopathy Cardiomyopathy, nonischemic CKD (chronic kidney disease) Diabetes mellitus type 2 in obese 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 DVT prophylaxis Dyslipidemia Dyspnea Elevated bilirubin Former smoker Hemoptysis Hypnagogic jerks Hypoxia Metabolic syndrome Non-rheumatic mitral regurgitation Obesity, morbid, BMI 40.0-49.9 Obstructive sleep apnea of adult Prerenal azotemia Restrictive lung disease Shortness of breath Systolic congestive heart failure Ventricular fibrillation Ventricular tachycardia (paroxysmal) Surgical History AICD (automatic cardioverter/defibrillator) present Family History Other Cystic kidney disease Diabetes Dyslipidemia Heart disease Hypertension Social History Smoking Status: Never smoker Tobacco Type: Cigarettes Second Hand Exposure: No; Do You Dip or Chew Tobacco: No; Hx Alcohol Use: Yes Alcohol type: beer Hx Substance Use: Yes Last Used Substance: Unknown Last Used Substance Other:: last used more than 4 months ago Substance Use Type Other:: has not used for 4 months Preferred Language: Luxembourgish Communication Ability: Effective Chief Compliance Officer Required: No Beliefs That Will Affect Care: Confucianist Confucianist Beliefs: would like a art handler notified if his condition declines Current Living Situation: Alone Current Living Situation Comment: From home alone 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 Feels Safe at Home: Yes Assistive Devices: CPAP and Glasses Review of Systems Constitutional: no fever and no chills Eyes: + corrective lenses Ear, Nose, Mouth, Throat: + ear pain; no hearing loss Respiratory: no cough and no dyspnea Cardiovascular: + dyspnea on exertion (Improved since LVAD was placed); no chest pain Gastrointestinal: as per Subjective / HPI Genitourinary: no dysuria Musculoskeletal: no back pain Integumentary: no rash Neurologic: no localized weakness Physical Exam Constitutional: WD/WN, vitals as above Eyes: Wears glasses ENMT: Ears: no hearing impairment Mouth: no oropharynx abnormality Neck: trachea midline Respiratory: normal respiratory effort; no respiratory distress and no labored breathing Cardiovascular: Rate/Rhythm: regular rate Vessels: dorsalis pedis pulses present Gastrointestinal (Abdomen): Abdomen is rotund but nondistended. It is nonrigid. There is no rebound tenderness or guarding but patient did have pain with palpation in the upper abdomen greatest in the epigastric area and to a lesser degree the right upper quadrant. The patient did have a LVAD drive wire protruding through his mid abdomen. Musculoskeletal: No calf tenderness Skin: no rashes Neurologic: moves all extremities Psychiatric: A+Ox3, euthymic affect Results & Data Vital Signs (Past 12 Hours) Vital Signs Temp Pulse Resp Pulse Ox O2 Del Method O2 Flow Rate 12/16/22 03:00 89 26 H 99 Room Air 3 12/16/22 02:00 82 20 97 Room Air 3 12/16/22 03:16 89 12/15/22 23:35 80 12/16/22 01:00 88 16 98 Room Air 12/15/22 23:35 80 19 98 Room Air 12/15/22 23:22 36.7 C 18 Room Air PG Care Time/CCT Total # of Minutes Spent Total Time Spent with Patient: Total time spent is greater than 50% in coordination of care (as documented) at patient's floor/unit and/or counseling patient: Coding Level of Care Code 71311 OFFICE CONSULT LVL 56M Diagnoses Abdominal pain R10.9
--- NOTE | 2022-12-16 06:33 | XRay Report ---
XR chest 1V portable CLINICAL HISTORY: chest pressure; LVAD COMPARISON STUDY: Chest radiograph September 20, [address] December 27, 2021. FINDINGS: There are median sternotomy wires and a dual lead left subclavian pacer. Left ventricular a ssist device is noted. Cardiomegaly is unchanged. There is no evidence for pulmonary edema. There is no pneumothorax or pleural effusion. No consolidation is identified. IMPRESSION: No acute cardiopulmonary findings. Cardiomegaly. ACT 112: Negative or not required by law. Electronically signed by: Cullen Mclaughlin M.D. 12/16/2022 6:32 AM
--- NOTE | 2022-12-16 06:37 | History & Physical Report ---
Date of Service December 16, 2022 Assessment & Plan (1) Abdominal pain: Plan: 57yo male with several days of diffuse abdominal pain, mostly in upper abdomen as well as nausea. Elevated WBC=14. TBilirubin=2 (decreased from values prior to LVAD placement), otherwise normal LFTs and Lipase CT with no acute findings in the abdomen or pelvis. Gallstones are present as is splenomegaly. Gallbladder is distended without gallbladder wall thickening or pericholecystic fluid. No bile duct dilatation. Patient has been seen by General Surgery in the ER -Observation to medical with telemetry -Check HIDA scan -Zofran PRN nausea -Morphine PRN pain -Repeat LFTs in AM (2) Acute UTI: Plan: UA suggestive of infection -Follow urinary culture -Ceftriaxone 2gm IV daily (3) GERD (gastroesophageal reflux disease): Plan: Chronic -Continue Protonix 40mg po daily -GI Cocktail as needed -Maalox as needed (4) Cardiomyopathy: Plan: Patient with AICD in place, recent LVAD placement -Continue Amiodarone 300mg po daily -Continue metoprolol 25mg po daily -Continue Coumadin -Continue Spironolactone -Continue Bumex -Continue Entresto -Continue Atorvastatin -Continue ASA 81mg po daily (5) Severe obstructive sleep apnea: Plan: On CPAP qHS -Continue F/E/N - Received 1L fluids in the ER, check Mg/PO4 and replete as needed, repeat chemistry in AM, NPO for now for HIDA scan Ppx - On Coumadin for LVAD Code - Full per discussion with patient Dispo - Admit to medical with telemetry History of Present Illness Chief Complaint: abdominal pain Primary Care Provider: Tamar Boss Lenard Ericmarleni is a 57yo male with history of dilated NICM with AICD in place for history of VT/VF. Most recently had an LVAD placed on 10/12/22 at [facility]. Patient has been experiencing diffuse abdominal pain for the last several days. Pain is intermittent, diffusely located but most in LUQ and epigastric pain. He has associated nausea but no vomiting. He had diarrhea earlier in the week which has since resolved. Patient's pain began this evening around 17:00 after eating several bites of cold spaghetti with red sauce. He had nausea this evening, no vomiting. He denies fever, chills, chest pain, cough, SOB, palpitations, dizziness. No sick contacts or recent travel. No changes in medication or dietary issues. Patient reports no difficulties with his LVAD. No drive-line pain or inflammation. He has been taking his coumadin as prescribed In the ER patient is afebrile, HD stable, non-toxic in appearance ER Course: Zofran x2 Ceftriaxone Pepcid Dilaudid Allergies Allergy/AdvReac Type Severity Reaction Status Date / Time mexiletine AdvReac Intermediate MADE ME Verified 12/16/22 00:45 SICK Home Medications Medication Instructions Recorded Confirmed Type omega-3 fatty acids 1,250 mg 1,250 mg PO DAILY 03/28/19 12/16/22 History capsule multivitamin 1 tab PO DAILY 12/01/19 12/16/22 History Auto Titrating CPAP #1 ea 03/16/20 12/16/22 Rx CPAP Supplies #1 ea 03/16/20 12/16/22 Rx cholecalciferol (vitamin D3) 50 50 mcg PO DAILY 04/05/21 12/16/22 History mcg (2,000 unit) capsule atorvastatin 80 mg tablet 80 mg PO HS 10/13/21 12/16/22 History allopurinol 300 mg tablet 300 mg PO DAILY 12/27/21 12/16/22 History metolazone 5 mg tablet 5 mg PO DAILY PRN WT GAIN 12/27/21 12/16/22 History aspirin 81 mg tablet,delayed 81 mg PO QAM 04/07/22 12/16/22 History release blood sugar diagnostic (OneTouch #100 ea 04/08/22 12/16/22 Rx Verio test strips) blood-glucose meter (OneTouch #1 ea 04/08/22 12/16/22 Rx Verio Meter) lancets 33 gauge (OneTouch Delica #100 ea 04/08/22 12/16/22 Rx Lancets) allopurinol 100 mg tablet 100 mg PO DAILY 07/10/22 12/16/22 History amiodarone 400 mg tablet 200 mg PO QAM 08/19/22 12/16/22 History bumetanide 2 mg tablet 2 mg PO BID 09/20/22 12/16/22 History metoprolol succinate 25 mg 25 mg PO QAM 12/16/22 12/16/22 History tablet,extended release 24 hr potassium chloride 20 mEq 20 meq PO QAM 12/16/22 12/16/22 History tablet,extended release(part/cryst) (Klor-Con M) sacubitril 24 mg-valsartan 26 mg 1 tab PO BID 12/16/22 12/16/22 History tablet (Entresto) spironolactone 25 mg tablet 25 mg PO QAM 12/16/22 12/16/22 History warfarin 1 mg tablet 1.5 mg PO UD 12/16/22 12/16/22 History Past Med/Surg History Medical History Acute decompensated heart failure Bronchiolitis due to respiratory syncytial virus (RSV) Cardiomyopathy Cardiomyopathy, nonischemic CKD (chronic kidney disease) Diabetes mellitus type 2 in obese 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 DVT prophylaxis Dyslipidemia Dyspnea Elevated bilirubin Former smoker Hemoptysis Hypnagogic jerks Hypoxia Metabolic syndrome Non-rheumatic mitral regurgitation Obesity, morbid, BMI 40.0-49.9 Obstructive sleep apnea of adult Prerenal azotemia Restrictive lung disease Shortness of breath Systolic congestive heart failure Ventricular fibrillation Ventricular tachycardia (paroxysmal) Surgical History AICD (automatic cardioverter/defibrillator) present Family History Other Cystic kidney disease Diabetes Dyslipidemia Heart disease Hypertension Social History Smoking Status: Never smoker Tobacco Type: Cigarettes Second Hand Exposure: No; Do You Dip or Chew Tobacco: No; Hx Alcohol Use: Yes Alcohol type: beer Hx Substance Use: Yes Last Used Substance: Unknown Last Used Substance Other:: last used more than 4 months ago Substance Use Type Other:: has not used for 4 months Preferred Language: Croatian Communication Ability: Effective Automatic Car Wash Attendant Required: No Beliefs That Will Affect Care: Spiritism Spiritism Beliefs: would like a ad setter notified if his condition declines Current Living Situation: Alone Current Living Situation Comment: From home alone 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 Feels Safe at Home: Yes Assistive Devices: CPAP and Glasses Review of Systems Review of Systems: All systems reviewed & are unremarkable except as noted in HPI & below Physical Exam Physical Exam: General: patient resting comfortably, NAD, non-toxic in appearance, AA&O x 4 Skin: warm, dry, intact, no rashes or lesions HEENT: NC/AT, PERRL, EOMI, anicteric sclera, conjunctiva without injection, external ear normal to inspection and nontender, nares patent, slightly dry mucus membranes, dentition intact, no oropharyngeal lesions, neck supple, trachea midline, no LAD, no thyromegaly, no JVD Heart: mechanical hum in chest, sternotomy incision well approximated, no bleeding/erythema. Lungs: equal air entry bilaterally, no rales/rhonchi/wheezes Abd: +BS, soft, ND, tympanic to percussion, diffusely tender to palpation without rebound/guarding/peritonities Ext: warm, no pulses palpable as consistent with LVAD placement Neuro: nonfocal, patient AA&O x 4, speech intact, no facial droop, moving all extremities on command with equal strength 5/5 Results & Data Results & Data Vital Signs (Past 12 Hours) Vital Signs Temp Pulse Resp Pulse Ox O2 Del Method O2 Flow Rate 12/16/22 03:00 89 26 H 99 Room Air 3 12/16/22 02:00 82 20 97 Room Air 3 12/16/22 03:16 89 12/15/22 23:35 80 12/16/22 01:00 88 16 98 Room Air 12/15/22 23:35 80 19 98 Room Air 12/15/22 23:22 36.7 C 18 Room Air Laboratory Results Laboratory Results WBC 14.18 K/ul (4.8-10.8) H 12/16/22 00:21 RBC 3.50 M/uL (4.70-6.10) L 12/16/22 00:21 Hgb 10.5 g/dl (14.0-18.0) L 12/16/22 00:21 POC Hgb 10.5 g/dl (14.0-18.0) L 12/16/22 00:58 Hct 30.9 % (42.0-52.0) L 12/16/22 00:21 POC Hct 31 % (42-52) L 12/16/22 00:58 MCV 88.3 fL (80.0-100.0) 12/16/22 00:21 MCH 30.0 pg (25.0-34.0) 12/16/22 00:21 MCHC 34.0 g/dL (32.0-36.0) 12/16/22 00:21 RDW Std Deviation 72.1 fL (36.4-46.3) H 12/16/22 00: RDW Coeff of Kylee 22.5 % (11.5-14.5) H 12/16/22 00:21 Plt Count 185 K/uL (130-400) 12/16/22 00:21 MPV 10.0 fL (9.4-12.4) 12/16/22 00:21 Immature Gran % (Auto) 0.7 % 12/16/22 00: Neut % (Auto) 89.5 % 12/16/22 00:21 Lymph % (Auto) 4.7 % 12/16/22 00:21 [place] % (Auto) 4.6 % 12/16/22 00:21 Eos % (Auto) 0.3 % 12/16/22 00:21 Baso % (Auto) 0.2 % 12/16/22 00:21 Neut # (Auto) 12.70 K/uL (1.40-6.50) H 12/16/22 00:21 Lymph # (Auto) 0.66 K/uL (1.2-3.4) L 12/16/22 00:21 [place] # (Auto) 0.65 K/uL (0.11-0.59) H 12/16/22 00:21 Eos # (Auto) 0.04 K/uL (0-0.50) 12/16/22 00:21 Baso # (Auto) 0.03 K/uL (0-0.2) 12/16/22 00:21 Immature Gran # (Auto) 0.10 K/uL (0.01-0.20) 12/16/22 00:21 Polychromasia 1+ 12/16/22 00:21 Anisocytosis Present 12/16/22 00:21 Echinocytes 1+ 12/16/22 00:21 POC Sodium 137 mmol/L (135-144) 12/16/22 00:58 Sodium 135 mmol/L (136-145) L 12/16/22 00:21 POC Potassium 4.0 mmol/L (3.3-5.0) 12/16/22 00:58 Potassium 3.9 mmol/L (3.5-5.1) 12/16/22 00:21 POC Chloride 100 mmol/L (101-112) L 12/16/22 00:58 Chloride 101 mmol/L (98-107) 12/16/22 00:21 Carbon Dioxide 27 mmol/L (21-32) 12/16/22 00:21 POC Total CO2 26 mmol/L (24-31) 12/16/22 00:58 Anion Gap 7 (3-11) 12/16/22 00:21 POC Anion Gap 16.0 mmol/L (16-25) 12/16/22 00:58 POC BUN 25 mg/dl (7-18) H 12/16/22 00:58 BUN 25 mg/dl (6-23) H 12/16/22 00:21 Creatinine 1.20 mg/dl (0.6-1.4) 12/16/22 00:21 POC Creatinine 1.2 mg/dl (0.6-1.3) 12/16/22 00:58 Est Cr Clr Drug Dosing Not Reportable 12/16/22 00:21 Est GFR ( Amer) 77.9 ml/min 12/16/22 00:21 Est GFR (Non-Af Amer) 67.2 ml/min 12/16/22 00:21 BUN/Creatinine Ratio 20.8 (10-20) H 12/16/22 00:21 Glucose 150 mg/dl (70-99(Fasting)) H 12/16/22 00:21 POC Glucose (other) 150 mg/dl (70-99) H 12/16/22 00:58 Calcium 9.7 mg/dl (8.6-10.3) 12/16/22 00:21 POC Ioniz Calcium Malachi 1.20 mmol/l (1.12-1.32) 12/16/22 00:58 Total Bilirubin 2.0 mg/dl (0.2-1.0) H 12/16/22 00:21 AST 26 U/L (13-39) 12/16/22 00:21 ALT 20 U/L (7-52) 12/16/22 00:21 Alkaline Phosphatase 90 U/L (34-104) 12/16/22 00:21 Troponin I High Sens 12.0 pg/ml (0-20) 12/16/22 00:21 Total Protein 7.3 gm/dl (6.0-8.3) 12/16/22 00:21 Albumin 4.0 gm/dl (3.4-5.0) 12/16/22 00:21 Globulin 3.3 gm/dl (2.5-4.0) 12/16/22 00:21 Albumin/Globulin Ratio 1.2 (0.9-2) 12/16/22 00:21 Lipase 31 U/L (11-82) 12/16/22 00:21 Urine Color Yellow 12/16/22 02:04 Urine Appearance Clear (Clear) 12/16/22 02:04 Urine pH 5.0 (4.5-7.5) 12/16/22 02:04 Ur Specific [place] 1.015 (1.000-1.030) 12/16/22 02:04 Urine Protein Negative (Negative) 12/16/22 02:04 Urine Glucose (UA) Negative (Negative) 12/16/22 02:04 Urine Ketones Negative (Negative) 12/16/22 02:04 Urine Blood Negative (Negative) 12/16/22 02:04 Urine Nitrite Positive (Negative) A 12/16/22 02:04 Urine Bilirubin Negative (Negative) 12/16/22 02:04 Urine Urobilinogen Negative (Negative) 12/16/22 02:04 Ur Leukocyte Esterase 1+ (Negative) H 12/16/22 02:04 Urine WBC (Auto) 5-10 /hpf (0-5) H 12/16/22 02:04 Urine RBC (Auto) 0-4 /hpf (0-4) 12/16/22 02:04 U Hyaline Cast (Auto) 1-5 /lpf (0-5) 12/16/22 02:04 U Epithel Cells (Auto) 5-10 /lpf (0-5) H 12/16/22 02:04 Urine Bacteria (Auto) 2+ (Negative) H 12/16/22 02:04 SARS-CoV-2, RNA, NAAT NEGATIVE (NEGATIVE) 12/16/22 06:15 Impressions Abdomen/Pelvis CT 12/16/22 01:01 Exam(s): CT ABDOMEN + PELVIS With Contrast IV Amt: 93 ML OPTIRAY 320 EXAM: CT Abdomen and Pelvis With Intravenous Contrast CLINICAL HISTORY: Reason for exam: epigastric abd pain; gas. TECHNIQUE: Axial computed tomography images of the abdomen and pelvis with intravenous contrast. Automated exposure control was utilized for the study. A dose lowering technique was utilized adhering to the principles of ALARA. CONTRAST: Patient received 93 ML OPTIRAY 320 of IV contrast COMPARISON: CT December 01, 2019. FINDINGS: Lung bases: Unremarkable. No mass. No consolidation. ABDOMEN: Liver: Unremarkable. No mass. Gallbladder and bile ducts: Distended gallbladder with gallstones. No ductal dilatation. Pancreas: Unremarkable. No mass. No ductal dilation. Spleen: Splenomegaly with a spleen length measuring up to 21.7 cm. Adrenals: Unremarkable. No mass. Kidneys and ureters: 6 mm nonobstructing calculus in the right kidney. Stomach and bowel: Unremarkable. No obstruction. No mucosal thickening. PELVIS: Appendix: No findings to suggest acute appendicitis. Bladder: Unremarkable. No mass. Reproductive: Unremarkable as visualized. ABDOMEN and PELVIS: Intraperitoneal space: Unremarkable. No free air. No significant fluid collection. Bones/joints: No acute fracture. No dislocation. Soft tissues: Unremarkable. Vasculature: Unremarkable. No abdominal aortic aneurysm. Lymph nodes: Unremarkable. No enlarged lymph nodes. Tubes, lines and devices: Left ventricular assist device is in place. IMPRESSION: No acute findings in the abdomen or pelvis. Gallstones. Splenomegaly. Nonobstructing right renal calculus. Electronically signed by: Lenard Mccann MD 12/16/22 02:19 AM Chest X-Ray 12/16/22 01:03 XR chest 1V portable CLINICAL HISTORY: chest pressure; LVAD COMPARISON STUDY: Chest radiograph September 20, [address] December 27, 2021. FINDINGS: There are median sternotomy wires and a dual lead left subclavian pacer. Left ventricular assist device is noted. Cardiomegaly is unchanged. There is no evidence for pulmonary edema. There is no pneumothorax or pleural effusion. No consolidation is identified. IMPRESSION: No acute cardiopulmonary findings. Cardiomegaly. ACT 112: Negative or not required by law. Electronically signed by: Cullen Mclaughlin M.D. 12/16/2022 6:32 AM Gallbladder Ultrasound 12/16/22 01:52 Exam(s): US GALLBLADDER EXAM: US Abdomen Limited, Gallbladder CLINICAL HISTORY: Reason for exam: eval gallbladder. TECHNIQUE: Real-time ultrasound of the right upper quadrant with image documentation. COMPARISON: No relevant prior studies available. FINDINGS: Gallbladder: Distended gallbladder with sludge and stones. No gallbladder wall thickening. No pericholecystic fluid. Common bile duct: Unremarkable as visualized. No stones. No dilation. Pancreas: Unremarkable as visualized. Right kidney: Appearance of a calculus in the right kidney. No hydronephrosis or perinephric fluid. 3.3 x 4.0 x 3.0 cm cyst in the right kidney. IMPRESSION: Distended gallbladder with gallstones. No gallbladder wall thickening or pericholecystic fluid. No bile duct dilatation. Electronically signed by: Lenard Mccann MD 12/16/22 03:29 AM ECG Additional Comments: atrial paced with prolonged AV conduction, no acute ischemic changes PG Care Time/CCT Total # of Minutes Spent Total Time Spent with Patient: Total time spent is greater than 50% in coordination of care (as documented) at patient's floor/unit and/or counseling patient: Coding Level of Care Code 06703 INT INP/OBS CARE 3/75MIN Diagnoses Abdominal pain R10.9 Acute UTI N39.0 GERD (gastroesophageal reflux disease) K21.9 Cardiomyopathy I42.9 Severe obstructive sleep apnea G47.33
[2022-12-16 08:23] LABS: INR 2.1 (0.9-1.1); Prothrombin Time 21.9 Seconds (9.0-12.0)
[2022-12-16] MEDS ORDERED: CARBOHYDRATES FOR HYPOGLYCEMIA PO PRN (08:50)
[2022-12-16] MEDS ORDERED: GLUCOSE 10 TAB/TUBE PO PRN (08:50)
[2022-12-16] MEDS ORDERED: ACETAMINOPHEN 325 MG TAB PO PRN (08:50)
[2022-12-16] MEDS ORDERED: MoRPHine SULFATE 2 MG/ML CARP IV PRN (08:50)
[2022-12-16] MEDS ORDERED: ONDANSETRON INJ 2 MG/ML 2 ML VIAL IV PRN (08:50)
[2022-12-16] MEDS ORDERED: ALUMINUM/MAGNESIUM SUSP 30 ML UDC PO PRN (08:50)
[2022-12-16] MEDS ORDERED: DEXTROSE 50% 50 ML SYRINGE IV PRN (08:50)
[2022-12-16] MEDS ORDERED: GLUCOSE 40% GEL 15 GM TUBE PO PRN (08:50)
[2022-12-16] MEDS ORDERED: GLUCAGON FOR INJ 1 MG VIAL SQ PRN (08:50)
[2022-12-16 09:39] LABS: Magnesium 1.6 mg/dl (1.7-2.4); Phosphorus 4.3 mg/dl (2.5-4.9)
[2022-12-16] MEDS: allopurinoL 100 MG TAB PO SCH (10:57)
[2022-12-16] MEDS: AMIODARONE 200 MG TAB PO SCH (10:58)
[2022-12-16] MEDS: SPIRONOLACTONE 25 MG TAB PO SCH (10:58)
[2022-12-16] MEDS: BUMETANIDE 1 MG TAB PO SCH ×2 (10:58→16:47)
[2022-12-16] MEDS: allopurinoL 300 MG TAB PO SCH (10:58)
[2022-12-16] MEDS: ASPIRIN 81 MG ECTAB PO SCH (10:58)
[2022-12-16] MEDS: VALSARTAN/SACUBITRIL 26/24MG TAB PO SCH ×2 (10:58→21:45)
[2022-12-16] MEDS: POTASSIUM CHLORIDE CRTAB 20 MEQ TABCR PO SCH (10:58)
[2022-12-16] MEDS: METOPROLOL SUCC 25MG EXT REL TAB PO SCH (10:58)
[2022-12-16] MEDS: PANTOprazole 40 MG TAB PO SCH (10:59)
--- NOTE | 2022-12-16 14:12 | Nuclear Medicine Report ---
NUCLEAR HEPATOBILIARY SCAN CLINICAL HISTORY: Right upper quadrant abdominal pain. COMPARISON STUDY: Abdominal ultrasound dated 12/16/2022. TECHNIQUE: Dynamic images of the liver and anterior abdomen were obtained every 5 minutes for a total of 60 minutes following the IV administration of 5.2 mCi of technetium 99m Mebrofenin. FINDINGS: The hepatobiliary scan shows prompt and homogeneous hepatic uptake. There is visualized act ivity within the intra and extrahepatic biliary tree at 10 minutes, and within the gallbladder at 45 minutes. There is normal biliary to bowel transit, with small bowel visualized by history 15 minutes . IMPRESSION: There is no scintigraphic evidence of cystic duct obstruction/acute cholecystitis. ACT 112: Negative or not required by law. Electronically signed by: Blanco Bazan M.D. 12/16/2022 2:10 PM
--- NOTE | 2022-12-16 14:34 | Communication Note ---
Date of Service: December 16, 2022 After review of patients HIDA scan results of: "IMPRESSION: There is no scintigraphic evidence of cystic duct obstruction/acute cholecystitis." Patient may advance diet as tolerated per hospitalist service. General surgery will sign off on patients care.
--- NOTE | 2022-12-16 15:59 | Communication Note ---
Date of Service: December 16, 2022 I reviewed the patient's chart, and there are no acute GI needs at present. Case was discussed with Dr. Izquierdo who is telephone clerks supervisor this weekend. He will see the patient in the AM. If any questions arise, please do not hesitate to contact me or Dr. Izquierdo.
[2022-12-16] MEDS: WARFARIN SOD 0.5 MG TAB PO SCH (16:47)
[2022-12-16 16:55] LABS: Basophils # (auto) 0.04 K/uL (0-0.2); Basophils % (auto) 0.3 %; Eosinophils % (auto) 0.7 %; Immature Granulocytes # (auto) 0.08 K/uL (0.01-0.20); Immature Granulocytes % (auto) 0.6 %; Lymphocytes # (auto) 1.06 K/uL (1.2-3.4); Lymphocytes % (auto) 7.8 %; Monocytes # (auto) 1.38 K/uL (0.11-0.59); Monocytes % (auto) 10.2 %; Neutrophils # (auto) 10.89 K/uL (1.40-6.50); Neutrophils % (auto) 80.4 %; White Blood Count 13.55 K/ul (4.8-10.8)
[2022-12-16 17:02] LABS: Bilirubin Direct 0.4 mg/dl (0-0.2); Bilirubin,Total 2.1 mg/dl (0.2-1.0)
[2022-12-16] MEDS: ATORVASTATIN 40 MG TAB PO SCH (21:45)
--- NOTE | 2022-12-16 23:30 | Communication Note ---
Date of Service: December 16, 2022 Patient reports feeling better, patient has decreased pain. Patient though reports that his abdominal pain which was a band like pain from epigastric area to his bilateral upper quadrants worsened in intensity the day that he had an increase amount of fried foods. His labs though initially appear could be explained by jepatic dysfunction have other explanations. His elevated INR is due to his coumadin. His elevated bilirubin which is mainly indirect bilirubin can be explained by hemolysis from his Left ventricle assist device. Though ultrasound shows an elarged gallbladder, his HIDA scan was negative. Acute cholecystitis appears to have been ruled out. Will obtain a mesenteric duplex to assess if intestinal ischemia could be causing his pain.Given that the patient recently had a CT scan with contrast, we will hold off CTA abd/pelvis with contrast as this could lead to a nephropathy, Unsure of the value of this U/S duplex as patient's elevated BMI may make it difficult to obtain useful images. Will continue to treat for a UTI. If continues to feel well, possible discharge in AM>
[2022-12-17] MEDS: cefTRIAXone SODIUM 2,000 MG in DEXTROSE 5% 50 ML IV SCH (04:09)
[2022-12-17 07:19] LABS: Hematocrit (blood only) 31.2 % (42.0-52.0); Hemoglobin 10.5 g/dl (14.0-18.0); Mean Corpuscular Hemoglobin 29.7 pg (25.0-34.0); Mean Corpuscular Hgb Conc 33.7 g/dL (32.0-36.0); Mean Corpuscular Volume 88.4 fL (80.0-100.0); Mean Platelet Volume 10.2 fL (9.4-12.4); Platelet Count 196 K/uL (130-400); RDW Coefficient of Variation 22.5 % (11.5-14.5); RDW Standard Deviation 71.5 fL (36.4-46.3); Red Blood Count 3.53 M/uL (4.70-6.10); White Blood Count 8.46 K/ul (4.8-10.8)
[2022-12-17 07:47] LABS: INR 2.2 (0.9-1.1); Prothrombin Time 23.1 Seconds (9.0-12.0)
[2022-12-17 08:13] LABS: Albumin Globulin Ratio 1.1 (0.9-2); Albumin Level 3.2 gm/dl (3.4-5.0); BUN Creatinine Ratio 22.2 (10-20); Bilirubin Direct 0.5 mg/dl (0-0.2); Bilirubin,Total 1.8 mg/dl (0.2-1.0); Calcium 8.6 mg/dl (8.6-10.3); Creatinine Clr Calc Pharmacy 74.4 ml/min; Est GFR (African American) 62.5 ml/min; Est GFR (Non-African American) 53.9 ml/min; Potassium 3.8 mmol/L (3.5-5.1); Total Protein 6.2 gm/dl (6.0-8.3)
[2022-12-17] MEDS: allopurinoL 100 MG TAB PO SCH (08:14)
[2022-12-17] MEDS: METOPROLOL SUCC 25MG EXT REL TAB PO SCH (08:14)
[2022-12-17] MEDS: AMIODARONE 200 MG TAB PO SCH (08:14)
[2022-12-17] MEDS: allopurinoL 300 MG TAB PO SCH (08:15)
[2022-12-17] MEDS: SPIRONOLACTONE 25 MG TAB PO SCH (08:15)
[2022-12-17] MEDS: BUMETANIDE 1 MG TAB PO SCH (08:15)
[2022-12-17] MEDS: VALSARTAN/SACUBITRIL 26/24MG TAB PO SCH ×2 (08:15→20:35)
[2022-12-17] MEDS: PANTOprazole 40 MG TAB PO SCH (08:15)
[2022-12-17] MEDS: ASPIRIN 81 MG ECTAB PO SCH (08:15)
[2022-12-17] MEDS: POTASSIUM CHLORIDE CRTAB 20 MEQ TABCR PO SCH (08:17)
--- NOTE | 2022-12-17 09:46 | Gastrointestinal Consultation ---
Date of Consultation December 17, 2022 Assessment & Plan (1) Abdominal pain: I think his abdominal pain may have been related to eating something that didn't agree with him. Certainly it could be related to biliary tract problems but I don't think I would jump into surgery unless absolutely had to with his history. I think he probably would have cholecystectomy if he didn't have his cardiac issues though. His pain has resolved so I don't think anything further needs to be done. Any invasive procedures probably should be done at [place] as he has requested of me. (2) Abnormal LFTs: He has always had elevated unconjugated hyperbilirubinemia. 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 The elevation was present prior to his LVAD being placed History of Present Illness Reason for Consultation: abdominal pain, abnormal LFT's Attending Physician: Kieran Joy MD History of Present Illness 57 year old man with complicated cardiac history with ICD an place and an LVAD. He says that the day before yesterday he developed a "severe shit pain". He said he had severe upper abdominal cramping like he needed to go to the bathroom bad. This lasted for about five hours so he came to ED. He was noted to have gallstones on evaluation and elevated bilirubin. That pain has since resolved and he feels okay now. He is a little sore and tender in his upper abdomen. Chronically he says he will get a "fluttering" in his stomach on occasion. He has not known about having gallstones in the past and he has not known about having an elevated bilirubin although he tells me is LVAD chews up his blood cells. Chart review shows he has never had a normal bilirubin. Allergies Allergy/AdvReac Type Severity Reaction Status Date / Time mexiletine AdvReac Intermediate MADE ME Verified 12/16/22 00:45 SICK Home Medications Medication Instructions Recorded Confirmed Type omega-3 fatty acids 1,250 mg 1,250 mg PO DAILY 03/28/19 12/16/22 History capsule multivitamin 1 tab PO DAILY 12/01/19 12/16/22 History Auto Titrating CPAP #1 ea 03/16/20 12/16/22 Rx CPAP Supplies #1 ea 03/16/20 12/16/22 Rx cholecalciferol (vitamin D3) 50 50 mcg PO DAILY 04/05/21 12/16/22 History mcg (2,000 unit) capsule atorvastatin 80 mg tablet 80 mg PO HS 10/13/21 12/16/22 History allopurinol 300 mg tablet 300 mg PO DAILY 12/27/21 12/16/22 History metolazone 5 mg tablet 5 mg PO DAILY PRN WT GAIN 12/27/21 12/16/22 History aspirin 81 mg tablet,delayed 81 mg PO QAM 04/07/22 12/16/22 History release blood sugar diagnostic (NOZATouch #100 ea 04/08/22 12/16/22 Rx Verio test strips) blood-glucose meter (NOZATouch #1 ea 04/08/22 12/16/22 Rx Verio Meter) lancets 33 gauge (NOZATouch Delica #100 ea 04/08/22 12/16/22 Rx Lancets) allopurinol 100 mg tablet 100 mg PO DAILY 07/10/22 12/16/22 History amiodarone 400 mg tablet 200 mg PO QAM 08/19/22 12/16/22 History bumetanide 2 mg tablet 2 mg PO BID 09/20/22 12/16/22 History metoprolol succinate 25 mg 25 mg PO QAM 12/16/22 12/16/22 History tablet,extended release 24 hr potassium chloride 20 mEq 20 meq PO QAM 12/16/22 12/16/22 History tablet,extended release(part/cryst) (Klor-Con M) sacubitril 24 mg-valsartan 26 mg 1 tab PO BID 12/16/22 12/16/22 History tablet (Entresto) spironolactone 25 mg tablet 25 mg PO QAM 12/16/22 12/16/22 History warfarin 1 mg tablet 1.5 mg PO UD 12/16/22 12/16/22 History Patient History Medical History Acute decompensated heart failure Bronchiolitis due to respiratory syncytial virus (RSV) Cardiomyopathy Cardiomyopathy, nonischemic CKD (chronic kidney disease) Diabetes mellitus type 2 in obese 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 DVT prophylaxis Dyslipidemia Dyspnea Elevated bilirubin Former smoker Hemoptysis Hypnagogic jerks Hypoxia Metabolic syndrome Non-rheumatic mitral regurgitation Obesity, morbid, BMI 40.0-49.9 Obstructive sleep apnea of adult Prerenal azotemia Restrictive lung disease Shortness of breath Systolic congestive heart failure Ventricular fibrillation Ventricular tachycardia (paroxysmal) Surgical History AICD (automatic cardioverter/defibrillator) present Family History Other Cystic kidney disease Diabetes Dyslipidemia Heart disease Hypertension Social History Smoking Status: Never smoker Tobacco Type: Cigarettes Second Hand Exposure: No; Do You Dip or Chew Tobacco: No; Hx Alcohol Use: No Hx Substance Use: No Preferred Language: Macanese Communication Ability: Effective Marketing Services Manager Required: No Beliefs That Will Affect Care: None Current Living Situation: Alone Current Living Situation Comment: From home alone 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 Feels Safe at Home: Yes Assistive Devices: BiPap and Other Review of Systems Review of Systems: All systems reviewed & are unremarkable except as noted in HPI & below Physical Exam Constitutional: WD/WN, vitals as above no acute distress Eyes: PERRL, conjunctivae normal, anicteric sclerae ENMT: external ear and nose normal, oropharynx normal Neck: trachea midline, no thyromegaly Respiratory: normal respiratory effort, lungs clear to auscultation Cardiovascular: RRR, no murmur, no edema Gastrointestinal (Abdomen): Inspection/Auscultation: abdomen normal to inspection Percussion/Palpation: + abdomen tender (slightly in the midepigastrium) and abdomen soft Musculoskeletal: Extremities: no cyanosis and no clubbing Skin: no rashes, warm and dry Neurologic: PERRL, EOMI, accommodation nl, no face palsy, no dysarthria Psychiatric: Orientation: alert and oriented x 3 Results & Data Vital Signs (Past 12 Hours) Vital Signs Temp Pulse Pulse Resp BP Pulse Ox O2 Del Method 12/17/22 08:00 36.8 C 83 18 95 Room Air 12/17/22 04:00 36.5 C 80 16 65/65 L 94 Room Air, CPAP 12/16/22 23:50 36.8 C 81 16 60/60 L 94 Room Air 12/16/22 22:37 93 H Laboratory Results 0712/17/22 12/17/22 Range/Units 07:38 06:31 06:31 WBC 8.46 (4.8-10.8) K/ul RBC 3.53 L (4.70-6.10) M/uL Hgb 10.5 L (14.0-18.0) g/dl Hct 31.2 L (42.0-52.0) % MCV 88.4 (80.0-100.0) fL MCH 29.7 (25.0-34.0) pg MCHC 33.7 (32.0-36.0) g/dL RDW Std Deviation 71.5 H (36.4-46.3) fL RDW Coeff of Kylee 22.5 H (11.5-14.5) % Plt Count 196 (130-400) K/uL MPV 10.2 (9.4-12.4) fL Immature Gran % (Auto) % Neut % (Auto) % Lymph % (Auto) % Coffee % (Auto) % Eos % (Auto) % Baso % (Auto) % Neut # (Auto) (1.40-6.50) K/uL Lymph # (Auto) (1.2-3.4) K/uL Coffee # (Auto) (0.11-0.59) K/uL Eos # (Auto) (0-0.50) K/uL Baso # (Auto) (0-0.2) K/uL Immature Gran # (Auto) (0.01-0.20) K/uL PT 23.1 H (9.0-12.0) Seconds INR 2.2 H (0.9-1.1) Sodium (136-145) mmol/L Potassium (3.5-5.1) mmol/L Chloride (98-107) mmol/L Carbon Dioxide (21-32) mmol/L Anion Gap (3-11) BUN (6-23) mg/dl Creatinine (0.6-1.4) mg/dl Est Cr Clr Drug Dosing ml/min Est GFR ( Amer) ml/min Est GFR (Non-Af Amer) ml/min BUN/Creatinine Ratio (10-20) Glucose (70-99(Fasting)) mg/dl POC Glucose 131 H (70-99) mg/dl Calcium (8.6-10.3) mg/dl Total Bilirubin (0.2-1.0) mg/dl Direct Bilirubin (0-0.2) mg/dl AST (13-39) U/L ALT (7-52) U/L Alkaline Phosphatase (34-104) U/L Total Protein (6.0-8.3) gm/dl Albumin (3.4-5.0) gm/dl Globulin (2.5-4.0) gm/dl Albumin/Globulin Ratio (0.9-2) 12/17/22 12/16/22 12/16/22 Range/Units 06:31 16:37 16:37 WBC 13.55 H (4.8-10.8) K/ul RBC (4.70-6.10) M/uL Hgb (14.0-18.0) g/dl Hct (42.0-52.0) % MCV (80.0-100.0) fL MCH (25.0-34.0) pg MCHC (32.0-36.0) g/dL RDW Std Deviation (36.4-46.3) fL RDW Coeff of Kylee (11.5-14.5) % Plt Count (130-400) K/uL MPV (9.4-12.4) fL Immature Gran % (Auto) 0.6 % Neut % (Auto) 80.4 % Lymph % (Auto) 7.8 % Coffee % (Auto) 10.2 % Eos % (Auto) 0.7 % Baso % (Auto) 0.3 % Neut # (Auto) 10.89 H (1.40-6.50) K/uL Lymph # (Auto) 1.06 L (1.2-3.4) K/uL Coffee # (Auto) 1.38 H (0.11-0.59) K/uL Eos # (Auto) 0.10 (0-0.50) K/uL Baso # (Auto) 0.04 (0-0.2) K/uL Immature Gran # (Auto) 0.08 (0.01-0.20) K/uL PT (9.0-12.0) Seconds INR (0.9-1.1) Sodium 137 (136-145) mmol/L Potassium 3.8 (3.5-5.1) mmol/L Chloride 101 (98-107) mmol/L Carbon Dioxide 29 (21-32) mmol/L Anion Gap 7 (3-11) BUN 32 H (6-23) mg/dl Creatinine 1.44 H (0.6-1.4) mg/dl Est Cr Clr Drug Dosing 74.4 ml/min Est GFR ( Amer) 62.5 ml/min Est GFR (Non-Af Amer) 53.9 ml/min BUN/Creatinine Ratio 22.2 H (10-20) Glucose 104 H (70-99(Fasting)) mg/dl POC Glucose (70-99) mg/dl Calcium 8.6 (8.6-10.3) mg/dl Total Bilirubin 1.8 H 2.1 H (0.2-1.0) mg/dl Direct Bilirubin 0.5 H 0.4 H (0-0.2) mg/dl AST 17 (13-39) U/L ALT 12 (7-52) U/L Alkaline Phosphatase 69 (34-104) U/L Total Protein 6.2 (6.0-8.3) gm/dl Albumin 3.2 L (3.4-5.0) gm/dl Globulin 3.0 (2.5-4.0) gm/dl Albumin/Globulin Ratio 1.1 (0.9-2) Diagnostic Findings Abdomen/Pelvis CT 12/16/22 01:01 Exam(s): CT ABDOMEN + PELVIS With Contrast IV Amt: 93 ML OPTIRAY 320 EXAM: CT Abdomen and Pelvis With Intravenous Contrast CLINICAL HISTORY: Reason for exam: epigastric abd pain; gas. TECHNIQUE: Axial computed tomography images of the abdomen and pelvis with intravenous contrast. Automated exposure control was utilized for the study. A dose lowering technique was utilized adhering to the principles of ALARA. CONTRAST: Patient received 93 ML OPTIRAY 320 of IV contrast COMPARISON: CT December 01, 2019. FINDINGS: Lung bases: Unremarkable. No mass. No consolidation. ABDOMEN: Liver: Unremarkable. No mass. Gallbladder and bile ducts: Distended gallbladder with gallstones. No ductal dilatation. Pancreas: Unremarkable. No mass. No ductal dilation. Spleen: Splenomegaly with a spleen length measuring up to 21.7 cm. Adrenals: Unremarkable. No mass. Kidneys and ureters: 6 mm nonobstructing calculus in the right kidney. Stomach and bowel: Unremarkable. No obstruction. No mucosal thickening. PELVIS: Appendix: No findings to suggest acute appendicitis. Bladder: Unremarkable. No mass. Reproductive: Unremarkable as visualized. ABDOMEN and PELVIS: Intraperitoneal space: Unremarkable. No free air. No significant fluid collection. Bones/joints: No acute fracture. No dislocation. Soft tissues: Unremarkable. Vasculature: Unremarkable. No abdominal aortic aneurysm. Lymph nodes: Unremarkable. No enlarged lymph nodes. Tubes, lines and devices: Left ventricular assist device is in place. IMPRESSION: No acute findings in the abdomen or pelvis. Gallstones. Splenomegaly. Nonobstructing right renal calculus. Electronically signed by: Lenard Mccann MD 12/16/22 02:19 AM Chest X-Ray 12/16/22 01:03 XR chest 1V portable CLINICAL HISTORY: chest pressure; LVAD COMPARISON STUDY: Chest radiograph September 20, [address] December 27, 2021. FINDINGS: There are median sternotomy wires and a dual lead left subclavian pacer. Left ventricular assist device is noted. Cardiomegaly is unchanged. There is no evidence for pulmonary edema. There is no pneumothorax or pleural effusion. No consolidation is identified. IMPRESSION: No acute cardiopulmonary findings. Cardiomegaly. ACT 112: Negative or not required by law. Electronically signed by: Cullen Mclaughlin M.D. 12/16/2022 6:32 AM Gallbladder Ultrasound 12/16/22 01:52 Exam(s): US GALLBLADDER EXAM: US Abdomen Limited, Gallbladder CLINICAL HISTORY: Reason for exam: eval gallbladder. TECHNIQUE: Real-time ultrasound of the right upper quadrant with image documentation. COMPARISON: No relevant prior studies available. FINDINGS: Gallbladder: Distended gallbladder with sludge and stones. No gallbladder wall thickening. No pericholecystic fluid. Common bile duct: Unremarkable as visualized. No stones. No dilation. Pancreas: Unremarkable as visualized. Right kidney: Appearance of a calculus in the right kidney. No hydronephrosis or perinephric fluid. 3.3 x 4.0 x 3.0 cm cyst in the right kidney. IMPRESSION: Distended gallbladder with gallstones. No gallbladder wall thickening or pericholecystic fluid. No bile duct dilatation. Electronically signed by: Lenard Mccann MD 12/16/22 03:29 AM Hepatobiliary Scan Nuclear Medicine 12/16/22 08:50 NUCLEAR HEPATOBILIARY SCAN CLINICAL HISTORY: Right upper quadrant abdominal pain. COMPARISON STUDY: Abdominal ultrasound dated 12/16/2022. TECHNIQUE: Dynamic images of the liver and anterior abdomen were obtained every 5 minutes for a total of 60 minutes following the IV administration of 5.2 mCi of technetium 99m Mebrofenin. FINDINGS: The hepatobiliary scan shows prompt and homogeneous hepatic uptake. There is visualized activity within the intra and extrahepatic biliary tree at 10 minutes, and within the gallbladder at 45 minutes. There is normal biliary to bowel transit, with small bowel visualized by history 15 minutes. IMPRESSION: There is no scintigraphic evidence of cystic duct obstruction/acute cholecystitis. ACT 112: Negative or not required by law. Electronically signed by: Blanco Bazan M.D. 12/16/2022 2:10 PM
--- NOTE | 2022-12-17 12:30 | Electrocardiogram Report ---
Test Reason : Blood Pressure : / mmHG Vent. Rate : 081 BPM Atrial Rate : 081 BPM P-R Int : 244 ms QRS Dur : 136 ms QT Int : 480 ms P-R-T Axes : 000 125 093 degrees QTc Int : 558 ms Poor data quality, interpretation may be adversely affected Atrial-paced rhythm with prolonged AV conduction Right axis deviation Nonspecific ST and T wave abnormality Non-specific intra-ventricular conduction block Prolonged QT Abnormal ECG When compared with ECG of 20-SEP-2022 16:47, Premature ventricular complexes are no longer Present Confirmed by Arnoldo Hauser ([id number]) on 12/17/2022 12:30:47 PM Referred By: REFERRED SELF Confirmed By:Arnoldo Hauser
[2022-12-17] MEDS ORDERED: SODIUM CHLORIDE 0.9% 1000ML 250 ML IV ONE (14:40)
--- NOTE | 2022-12-17 15:48 | Ultrasound Report ---
US duplex mesenteric CLINICAL HISTORY: Generalized abdominal pain. COMPARISON STUDY: Abdomen and pelvis CT 12/16/2022. FINDINGS: Overlying bowel gas obscures the midline structures including the abdominal aorta, celiac a rtery, superior mesenteric artery. IMPRESSION: Overlying bowel gas obscures the major mesenteric arteries. ACT 112: Negative or not required by law. Electronically signed by: Hebert Roberts M.D. 12/17/2022 3:47 PM
[2022-12-17] MEDS: WARFARIN SOD 0.5 MG TAB PO SCH (16:22)
[2022-12-17] MEDS ORDERED: SODIUM CHLORIDE 0.9% 1000ML 125 ML IV ONE (20:34)
--- NOTE | 2022-12-17 20:34 | Hospitalist Progress Note ---
Date of Service December 17, 2022 Assessment & Plan (1) Abdominal pain: Plan: RUQ, high epigastric region. Improved with supportive care, time, having a large BM, +/- IV antibiotics. Has gallstones on multiple imaging studies, but CT/ultrasound/HIDA argue against acute cholecystitis. Has chronically elevated total bilirubin level but LFTs otherwise wnl. Lipase wnl. Insertion site of LVAD device at the abdominal wall surface is clean and free of cellulitis. Has UTI, but doubt that it is the primary cause of the upper abdominal pain. Had large BM yesterday and his abdominal pain felt better following such - was that also contributing to his pain? Appreciate gen surg + GI consultations. Plan - * cont IV rocephin for UTI * repeat labs am * cont PPI * serial exams (2) Acute UTI: Plan: 2nd GNR Cont Ceftriaxone 2gm IV daily follow culture to final (3) GERD (gastroesophageal reflux disease): Plan: no symptoms at this time Continue Protonix 40mg po daily doubt GERD is primary cause of presenting abd pain (4) Cardiomyopathy: Plan: echo earlier this year at [facility] (06/2022) EF 35-40% 07/2022 at [facility] - 30-35% with grade 3 diastolic dysfunction Patient with AICD in place Recent LVAD placement at [facility] 09/2022 Remains on Amiodarone 300mg po daily, metoprolol succ 25mg po daily, coumadin daily, bumex 2mg BID, aldactone 25mg daily, Entresto BID, Compensated or modestly hypovolemic on exam today (LVAD parameters - particularly the PI - suggest hypovolemia) Gave 250cc of saline earlier today due to low MAPs and low PI after I spoke with LVAD coordinator at [facility] MAP tenzin to ~65 late in the day - gave additional 125cc of saline LVAD coordinator stated they typically advise MAP of at least 70 Baseline PI values for Mr Machado in the last few weeks have been low 3s to upper 3s will hold tonight's bumex hold tomorrow AM's aldactone recheck BMP am recheck weight and volume status in am (5) Severe obstructive sleep apnea: Plan: On CPAP qHS Patient has home unit with him (6) LVAD (left ventricular assist device) present: Plan: placed 09/2022 at [facility] patient has felt well since implantation lead entering the abdomen has clean insertion site patient has a flowsheet of his LVAD parameters typically his PI (pulsatility index) is >3 has been running 1's and 2's since admission PI takes into account preload and contractility I spoke with the LVAD coordinator at [facility] this afternoon I went over his LVAD parameters with the coordinator including Flow (>5), power, PI, MAPs, etc Most common cause of low PI is hypovolemia We discussed course of action - reasonable to give additional small fluid bolus and hold this evening's bumex MAP goal should be >70 if possible per the coordinator patient has all necessary supplies, battery packs, etc for his LVAD device device appears to be working well at this time follow parameters carefully coumadin - continue home regimen, INR 2.2 today; 2.1 yesterday INR am (7) Gallstones: Plan: CT, RUQ u/s confirm the presence of gallstones but no features to suggest acute cholecystitis HIDA scan neg for cystic duct obstruction/acute cholecystitis GI, gen surg have seen - no plans for cholecystectomy or cholecystostomy tube trend LFTs serial exams gallstones felt not to be the cause of his presentation this bears close watching, however (8) Hypomagnesemia: Plan: replace with mag sulfate IV repeat level am (9) AICD (automatic cardioverter/defibrillator) present: Plan: no recent shocks pacing on monitor (10) Abnormal LFTs: Plan: chronically elevated t.bili - either hepatic congestion from right heart failure vs Gilbert's vs combination of factors other LFTs arewnl appreciate GI input repeat LFTs am (11) Morbid obesity: Plan: BMI 43 (12) Diabetes mellitus type 2 in obese: Plan: a1c 6% earlier this spring if patient is here through Monday will recheck a1c then (a1cs are not run on Sundays) he is not on any diabetic therapy at home (13) History of ventricular tachycardia: Plan: cont amiodarone no recent shocks from ICD Plan DVT proph - coumadin care d/w GI care discussed informally with [facility] care discussed with LVAD coordinator at [facility] complex care coordination in this high risk patient with multiple high risk medications, LVAD, etc. total care time today about 80 minutes including the above discussions, extensive chart review, LVAD coordination with [place], etc. Admission and Anticipated Discharge Date Admission Date: December 17, 2022 Subjective patient sitting in chair comfortably during the visit states abdominal pain - which was in the upper abdomen primarily pre-hospital and early in the stay - is much better today able to eat/drink comfortably without any worsening of pain no nausea or emesis did have multiple episodes of emesis at home last few days denies any dyspnea denies any chest pain denies diarrhea urine did have foul odor this past week at home patient has LVAD in place received such while at [facility] in 09/2022 LVAD parameters last few days - PI 3.3 to 3.9, with today's (and yesterday's) PI values <2 Flow >5 L MAPs upper 50s and low 60s today tele overnight - pacing Review of Systems Review of Systems: gen - no fevers/chills cv - no chest pain pulm - no dyspnea or MARIE GI - no diarrhea - no dysuria Physical Exam Physical Exam: gen - sitting in chair comfortably, looks good, NAD neck - no obvious JVD mouth - MM slightly pasty heart - sound of LVAD device makes hearing heart tones extremely difficult; s1 s2 barely heard lungs - CTA b/l (posteriorly) abd - slight tenderness RUQ and high epigastric region, BS+, ND, soft, LVAD insertion site mid-abdomen in the midline clean and free of any cellulitis ext - no edema, pulses 2+ b/l psych - a/o x 3 Results & Data Results & Data Vital Signs (Past 12 Hours) Vital Signs Temp Pulse Resp Pulse Ox O2 Del Method 12/17/22 19:32 36.7 C 97 H 16 97 Room Air 12/17/22 16:00 36.7 C 80 18 92 Room Air 12/17/22 11:37 36.9 C 18 93 Room Air Laboratory Results Laboratory Results - last 24 hr 12/17/22 12/17/22 12/17/22 06:31 06:31 06:31 WBC 8.46 RBC 3.53 L Hgb 10.5 L Hct 31.2 L MCV 88.4 MCH 29.7 MCHC 33.7 RDW Std Deviation 71.5 H RDW Coeff of Kylee 22.5 H Plt Count 196 MPV 10.2 PT 23.1 H INR 2.2 H Sodium 137 Potassium 3.8 Chloride 101 Carbon Dioxide 29 Anion Gap 7 BUN 32 H Creatinine 1.44 H Est Cr Clr Drug Dosing 74.4 Est GFR ( Amer) 62.5 Est GFR (Non-Af Amer) 53.9 BUN/Creatinine Ratio 22.2 H Glucose 104 H POC Glucose Calcium 8.6 Total Bilirubin 1.8 H Direct Bilirubin 0.5 H AST 17 ALT 12 Alkaline Phosphatase 69 Total Protein 6.2 Albumin 3.2 L Globulin 3.0 Albumin/Globulin Ratio 1.1 12/17/22 07:38 WBC RBC Hgb Hct MCV MCH MCHC RDW Std Deviation RDW Coeff of Kylee Plt Count MPV PT INR Sodium Potassium Chloride Carbon Dioxide Anion Gap BUN Creatinine Est Cr Clr Drug Dosing Est GFR ( Amer) Est GFR (Non-Af Amer) BUN/Creatinine Ratio Glucose POC Glucose 131 H Calcium Total Bilirubin Direct Bilirubin AST ALT Alkaline Phosphatase Total Protein Albumin Globulin Albumin/Globulin Ratio PG Care Time/CCT Total # of Minutes Spent Total Time Spent with Patient: Total time spent is greater than 50% in coordination of care (as documented) at patient's floor/unit and/or counseling patient: Prolonged Care Time Prolonged Care Time: Yes Total Prolonged Care Time: 80 Coding Level of Care Code 55922 SUB INP/OBS CARE 3/50MIN (25 - SIGNIFICANT, SEPARATELY IDENTIFIABLE ) Diagnoses Abdominal pain R10.9 Acute UTI N39.0 GERD (gastroesophageal reflux disease) K21.9 Cardiomyopathy I42.9 Severe obstructive sleep apnea G47.33 LVAD (left ventricular assist device) present Z95.811 Gallstones K80.20 Hypomagnesemia E83.42 AICD (automatic cardioverter/defibrillator) present Z95.810 Abnormal LFTs R79.89 Morbid obesity E66.01 Diabetes mellitus type 2 in obese E11.69; E66.9 History of ventricular tachycardia Z86.79 Additional Codes Prolonged Care Time - Prolonged Care Time: Yes ([id number])
[2022-12-17] MEDS: ATORVASTATIN 40 MG TAB PO SCH (20:35)
[2022-12-18] MEDS: cefTRIAXone SODIUM 2,000 MG in DEXTROSE 5% 50 ML IV SCH (03:56)
--- NOTE | 2022-12-18 07:01 | Gastroenterology Progress Note ---
Date of Service December 18, 2022 Assessment & Plan (1) Abdominal pain: Plan: Doing well from GI standpoint. Okay with me to discharge when you are ready Admission and Anticipated Discharge Date Admission Date: December 17, 2022 Subjective Feeling back to normal. No abdominal pain Physical Exam Physical Exam: He looks well Results & Data Vital Signs (Past 12 Hours) Vital Signs Temp Pulse Pulse Resp Pulse Ox O2 Del Method 12/18/22 03:10 36.5 C 85 18 93 Room Air 12/17/22 23:22 36.7 C 80 18 97 Room Air 12/17/22 22:01 80 12/17/22 19:15 CPAP 12/17/22 19:32 36.7 C 97 H 16 97 Room Air
[2022-12-18 07:04] LABS: Basophils # (auto) 0.07 K/uL (0-0.2); Basophils % (auto) 0.8 %; Eosinophils # (auto) 0.48 K/uL (0-0.50); Eosinophils % (auto) 5.3 %; Hematocrit (blood only) 31.3 % (42.0-52.0); Hemoglobin 10.7 g/dl (14.0-18.0); Immature Granulocytes # (auto) 0.05 K/uL (0.01-0.20); Immature Granulocytes % (auto) 0.5 %; Lymphocytes # (auto) 1.45 K/uL (1.2-3.4); Lymphocytes % (auto) 15.9 %; Mean Corpuscular Hemoglobin 29.3 pg (25.0-34.0); Mean Corpuscular Hgb Conc 34.2 g/dL (32.0-36.0); Mean Corpuscular Volume 85.8 fL (80.0-100.0); Mean Platelet Volume 9.8 fL (9.4-12.4); Monocytes # (auto) 0.87 K/uL (0.11-0.59); Monocytes % (auto) 9.6 %; Neutrophils # (auto) 6.18 K/uL (1.40-6.50); Neutrophils % (auto) 67.9 %; Platelet Count 220 K/uL (130-400); RDW Coefficient of Variation 21.9 % (11.5-14.5); RDW Standard Deviation 68.3 fL (36.4-46.3); Red Blood Count 3.65 M/uL (4.70-6.10)
[2022-12-18 07:22] LABS: Albumin Level 3.1 gm/dl (3.4-5.0); Bilirubin,Total 1.3 mg/dl (0.2-1.0); Calcium 8.8 mg/dl (8.6-10.3); Creatinine Clr Calc Pharmacy 84.4 ml/min; Est GFR (Non-African American) 62.2 ml/min; Globulin 3.1 gm/dl (2.5-4.0); Magnesium 1.7 mg/dl (1.7-2.4); Potassium 3.6 mmol/L (3.5-5.1); Total Protein 6.2 gm/dl (6.0-8.3)
[2022-12-18 07:32] LABS: Anisocytosis Present; Polychromasia 1+
[2022-12-18 07:51] LABS: INR 1.8 (0.9-1.1); Prothrombin Time 19.3 Seconds (9.0-12.0)
[2022-12-18] MEDS: ASPIRIN 81 MG ECTAB PO SCH (08:14)
[2022-12-18] MEDS: AMIODARONE 200 MG TAB PO SCH (08:14)
[2022-12-18] MEDS: POTASSIUM CHLORIDE CRTAB 20 MEQ TABCR PO SCH (08:14)
[2022-12-18] MEDS: METOPROLOL SUCC 25MG EXT REL TAB PO SCH (08:14)
[2022-12-18] MEDS: PANTOprazole 40 MG TAB PO SCH (08:14)
[2022-12-18] MEDS: VALSARTAN/SACUBITRIL 26/24MG TAB PO SCH (08:14)
[2022-12-18] MEDS: allopurinoL 300 MG TAB PO SCH (08:15)
[2022-12-18] MEDS: allopurinoL 100 MG TAB PO SCH (08:15)
[2022-12-18] MEDS ORDERED: WARFARIN SOD 3 MG TAB PO STA (11:52)
--- NOTE | 2022-12-18 12:33 | Discharge Summary ---
Date of Service date of admission - December 16, 2022 date of discharge - December 18, 2022 Admission HPI Per Admitting Provider Lenard Machado is a 57yo male with history of dilated NICM with AICD in place for history of VT/VF. Most recently had an LVAD placed on 10/12/22 at [facility]. Patient has been experiencing diffuse abdominal pain for the last several days. Pain is intermittent, diffusely located but most in LUQ and epigastric pain. He has associated nausea but no vomiting. He had diarrhea earlier in the week which has since resolved. Patient's pain began this evening around 17:00 after eating several bites of cold spaghetti with red sauce. He had nausea this evening, no vomiting. He denies fever, chills, chest pain, cough, SOB, palpitations, dizziness. No sick contacts or recent travel. No changes in medication or dietary issues. Patient reports no difficulties with his LVAD. No drive-line pain or inflammation. He has been taking his coumadin as prescribed In the ER patient is afebrile, HD stable, non-toxic in appearance ER Course: Zofran x2 Ceftriaxone Pepcid Dilaudid Principal Diagnosis 1. abdominal pain and nausea - improved; exact cause uncertain; gastritis +/- UTI +/- constipation vs other factors 2. e.coli urinary tract infection 3. chronic systolic congestive heart failure - compensated 4. LVAD implantation 09/2022 - [facility] 5. chronic coumadin usage; discharge INR 1.[address] scan - cause uncertain - but chronic (also present on 2019 imaging) 7. hypomagnesemia 8. gallstones 9. morbid obesity BMI 43 Discharge Exam gen - sitting in chair comfortably, looks good, NAD neck - no obvious JVD mouth - MMM heart - sound of LVAD device makes hearing heart tones extremely difficult lungs - CTA b/l (posteriorly) abd - soft, NT, ND, BS+, LVAD insertion site mid-abdomen in the midline clean and free of any cellulitis; spleen tip palpable ext - no edema, pulses 2+ b/l psych - a/o x 3 Discharge Data Allergies Allergy/AdvReac Type Severity Reaction Status Date / Time mexiletine AdvReac Intermediate MADE ME Verified 12/16/22 00:45 SICK Consultations [facility] [place] [facility] Ordered Studies Abdomen/Pelvis CT 12/16/22 01:01 Exam(s): CT ABDOMEN + PELVIS With Contrast IV Amt: 93 ML OPTIRAY 320 EXAM: CT Abdomen and Pelvis With Intravenous Contrast CLINICAL HISTORY: Reason for exam: epigastric abd pain; gas. TECHNIQUE: Axial computed tomography images of the abdomen and pelvis with intravenous contrast. Automated exposure control was utilized for the study. A dose lowering technique was utilized adhering to the principles of ALARA. CONTRAST: Patient received 93 ML OPTIRAY 320 of IV contrast COMPARISON: CT December 01, 2019. FINDINGS: Lung bases: Unremarkable. No mass. No consolidation. ABDOMEN: Liver: Unremarkable. No mass. Gallbladder and bile ducts: Distended gallbladder with gallstones. No ductal dilatation. Pancreas: Unremarkable. No mass. No ductal dilation. Spleen: Splenomegaly with a spleen length measuring up to 21.7 cm. Adrenals: Unremarkable. No mass. Kidneys and ureters: 6 mm nonobstructing calculus in the right kidney. Stomach and bowel: Unremarkable. No obstruction. No mucosal thickening. PELVIS: Appendix: No findings to suggest acute appendicitis. Bladder: Unremarkable. No mass. Reproductive: Unremarkable as visualized. ABDOMEN and PELVIS: Intraperitoneal space: Unremarkable. No free air. No significant fluid collection. Bones/joints: No acute fracture. No dislocation. Soft tissues: Unremarkable. Vasculature: Unremarkable. No abdominal aortic aneurysm. Lymph nodes: Unremarkable. No enlarged lymph nodes. Tubes, lines and devices: Left ventricular assist device is in place. IMPRESSION: No acute findings in the abdomen or pelvis. Gallstones. Splenomegaly. Nonobstructing right renal calculus. Electronically signed by: Lenard Mccann MD 12/16/22 02:19 AM Chest X-Ray 12/16/22 01:03 XR chest 1V portable CLINICAL HISTORY: chest pressure; LVAD COMPARISON STUDY: Chest radiograph September 20, [address] December 27, 2021. FINDINGS: There are median sternotomy wires and a dual lead left subclavian pacer. Left ventricular assist device is noted. Cardiomegaly is unchanged. There is no evidence for pulmonary edema. There is no pneumothorax or pleural effusion. No consolidation is identified. IMPRESSION: No acute cardiopulmonary findings. Cardiomegaly. ACT 112: Negative or not required by law. Electronically signed by: Cullen Mclaughlin M.D. 12/16/2022 6:32 AM Gallbladder Ultrasound 12/16/22 01:52 Exam(s): US GALLBLADDER EXAM: US Abdomen Limited, Gallbladder CLINICAL HISTORY: Reason for exam: eval gallbladder. TECHNIQUE: Real-time ultrasound of the right upper quadrant with image documentation. COMPARISON: No relevant prior studies available. FINDINGS: Gallbladder: Distended gallbladder with sludge and stones. No gallbladder wall thickening. No pericholecystic fluid. Common bile duct: Unremarkable as visualized. No stones. No dilation. Pancreas: Unremarkable as visualized. Right kidney: Appearance of a calculus in the right kidney. No hydronephrosis or perinephric fluid. 3.3 x 4.0 x 3.0 cm cyst in the right kidney. IMPRESSION: Distended gallbladder with gallstones. No gallbladder wall thickening or pericholecystic fluid. No bile duct dilatation. Electronically signed by: Lenard Mccann MD 12/16/22 03:29 AM Hepatobiliary Scan Nuclear Medicine 12/16/22 08:50 NUCLEAR HEPATOBILIARY SCAN CLINICAL HISTORY: Right upper quadrant abdominal pain. COMPARISON STUDY: Abdominal ultrasound dated 12/16/2022. TECHNIQUE: Dynamic images of the liver and anterior abdomen were obtained every 5 minutes for a total of 60 minutes following the IV administration of 5.2 mCi of technetium 99m Mebrofenin. FINDINGS: The hepatobiliary scan shows prompt and homogeneous hepatic uptake. There is visualized activity within the intra and extrahepatic biliary tree at 10 minutes, and within the gallbladder at 45 minutes. There is normal biliary to bowel transit, with small bowel visualized by history 15 minutes. IMPRESSION: There is no scintigraphic evidence of cystic duct obstruction/acute cholecystitis. ACT 112: Negative or not required by law. Electronically signed by: Blanco Bazan M.D. 12/16/2022 2:10 PM Mesenteric US 12/17/22 00:00 US duplex mesenteric CLINICAL HISTORY: Generalized abdominal pain. COMPARISON STUDY: Abdomen and pelvis CT 12/16/2022. FINDINGS: Overlying bowel gas obscures the midline structures including the abdominal aorta, celiac artery, superior mesenteric artery. IMPRESSION: Overlying bowel gas obscures the major mesenteric arteries. ACT 112: Negative or not required by law. Electronically signed by: Hebert Roberts M.D. 12/17/2022 3:47 PM Hospital Course (1) Abdominal pain: RUQ, high epigastric region. Improved with supportive care, time, having a large bowel movement, PPI, +/- IV antibiotics. Exact cause of his pain was uncertain, but possibly multiple factors including gastritis/GERD, ?UTI, constipation, etc. Gallstones were present on multiple imaging studies, but CT abd&pelvis/ultrasound/HIDA argued against acute cholecystitis. Has a chronically elevated total bilirubin level but LFTs were otherwise wnl. Lipase was wnl. Insertion site of LVAD device at the abdominal wall surface was clean and free of cellulitis. Had e.coli UTI, but doubt that it was the primary cause of the upper abdominal pain. Had large bowel movement while here and his abdominal pain did improve following such. He did report frequent burping and belching - this improved with addition of PPI. Seen by general surgery and gastroenterology. In light of negative imaging studies for acute cholecystitis no further biliary work-up was advised by either gastroenterology or general surgery. At discharge advised - * finish treatment of e.coli UTI * protonix 40mg BID * close follow-up with [facility] 1-2 weeks post-discharge (2) Gallstones: CT of abdomen and RUQ u/s confirmed the presence of gallstones but no features suggested acute cholecystitis. HIDA scan was negative for cystic duct obstruction/acute cholecystitis. GI, gen surg saw in consult - no plans for cholecystectomy or cholecystostomy tube. LFTs were stable while here. Gallstones felt not to be the cause of his presentation. (3) Acute UTI: 2nd E.coli. Received 3 doses of IV ceftriaxone followed by 4 days of oral keflex 500mg BID. (4) GERD (gastroesophageal reflux disease): Patient had some symptoms of GERD during the stay. This occurred despite once daily protonix. In the event gastritis and/or GERD were contributing to his abdominal symptoms advised protonix 40mg BID at discharge with close GI follow-up ([facility], [place] office). He was asked to avoid fatty foods as he had had fried foods leading up to this admission and those foods exacerbated his symptoms. (5) Cardiomyopathy: Echo earlier this year at [facility] (06/2022) EF 35-40%. 07/2022 at [facility] - 30-35% with grade 3 diastolic dysfunction. Cardiomyopathy is non-ischemic. Patient with AICD in place. Recent LVAD placement at [facility] 09/2022. Remains on Amiodarone 200mg po daily, metoprolol succ 25mg po daily, coumadin daily, bumex 2mg BID, aldactone 25mg daily, Entresto BID, Was compensated or modestly hypovolemic on exam during the stay. LVAD parameters also suggested mild hypovolemia. His pulsatility index ("PI") was low suggestive of mild hypovolemia. He did require a small amount of IV fluid while here and his diuretics were held for 24 hours. He tolerated the fluid with stable lung exam, no pulmonary symptoms, and normal O2 sats. See LVAD below for additional details. He will resume his bumex the day of discharge and his aldactone the morning after discharge. He will follow-up closely with the cardiology team at [facility]. (6) LVAD (left ventricular assist device) present: Placed 09/2022 at [facility]. Patient has felt well since implantation. Lead entering the abdomen had clean insertion site. LVAD parameters while here -- * initially his pulsatility index (PI) was 1.5 to 2.5 * the PI tenzin to about 3 just prior to discharge with improved PO intake and a modest amount of IV fluid * Flow and power were normal on the device MAPs were about 60-65 initially on most checks, improving to >65 prior to discharge. The LVAD coordinator on-call at [facility] was contacted twice to discuss his LVAD parameters. On day of discharge his parameters were satisfactory and the device was felt to be working normally. Patient continues to have all the necessary supplies, battery packs, etc for his LVAD device. He will follow-up with the LVAD team at [place] within a day or two of discharge. He has an in-person visit with the LVAD clinic in [place] later in December 2022. (7) Severe obstructive sleep apnea: Continue CPAP (8) Hypomagnesemia: replaced with mag sulfate IV repeat level wnl due to chronic diuretic use he was asked to take magnesium oxide 400mg daily upon discharge (9) AICD (automatic cardioverter/defibrillator) present: no recent shocks pacing on monitor while here (10) Abnormal LFTs: chronically elevated t.bili - either hepatic congestion from right heart failure vs Gilbert's vs combination of factors other LFTs were wnl total bilirubin peaked in the 5's prior to LVAD implantation in September 2022 discharge total bilirubin level on 12/18/22 was 1.3 (11) Morbid obesity: BMI 43 (12) Diabetes mellitus type 2 in obese: Hba1c 6% earlier this spring A1c c/w pre-DM he is not on any diabetic therapy at home at this time (13) History of ventricular tachycardia: cont amiodarone no recent shocks from ICD (14) Splenomegaly: seen on CT abd/pelvis in 2019 also seen again on CT abd/pelvis this admission he has hepatomegaly but no specific features of cirrhosis on imaging cause of splenomegaly is uncertain recommend f/u with [facility] for ongoing surveillance (15) Chronic anticoagulation: Initiated on coumadin therapy following LVAD implantation to prevent clotting. INR on day of discharge was 1.8. He received 1.5mg of coumadin on 12/16, 1.5mg of coumadin on 12/17, and 3mg of coumadin on 12/18 prior to discharge home. He has a home INR meter and will test on Monday AM, 12/19/22. These results will be forwarded to the Coumadin Clinic at [facility]. He knows to wait for guidance from [place] with respect to ongoing dosing. Home Health Attestation I certify that this patient is under my care and that I, or a physicians assistant unit forester working with me, had a face to-face encounter that meets the home health [id number] encounter requirements with this patient. The encounter with the patient was in whole, or in part, for the following medical condition, which is the primary reason for home health care (list medical condition): I certify that, based on my findings, the following services are medically necessary home health services: My clinical findings support the need for the above services because: Further, I certify that my clinical findings support that this patient is homebound (i.e. absences from home require considerable and taxing effort and are for medical reasons or muslim services or infrequently or of short duration when for other reasons) because: Certification for Home Health Services: Based on the above findings, I certify that this patient is confined to the home and needs intermittent penitentiary care, physical therapy and/or speech therapy or continues to need occupational therapy. The patient is under my care, and I have initiated the establishment of the plan of care. This patient will be followed by a physician who will periodically review the plan of care. Total Time Total Time Spent Total Time Spent (In Minutes): 50 Discharge Plan Discharge Items Patient Disposition: Home - Home Health Services Reason For Visit: ABDOMINAL PAIN, NAUSEA Discharge Diagnosis: 1. abdominal pain and nausea - improved; exact cause uncertain; gastritis (irritation of stomach)? urinary tract infection? constipation? combination of factors? 2. e.coli urinary tract infection 3. chronic systolic congestive heart failure - severe 4. LVAD 5. chronic coumadin usage; discharge INR 1.[address] scan - cause uncertain 7. low magnesium - due to chronic diuretic usage 8. gallstones - testing did not show acute cholecystitis ("sick" gall bladder) Activity: As commented below Activity Comment: Follow any previous activity orders given by the [place] LVAD team Lifting Comment: Follow any previous lifting restrictions given by the [place] LVAD team Driving/Machine Use: NO DRIVING until cleared by [place] LVAD team Non-emergency contact: Primary Care Provider, Supervisor Taping and Mark roenterologist Call non-emergency contact if: you have any medication questions, your symptoms worsen, your pain is not controlled, your pain is worsening, your pain is unusua l for you, your pain is concerning for you and you have a fever Follow-up/Referrals: [facility] [Outside] (follow-up with LVAD team via phone and any upcoming in-person visits as previously scheduled ) Jason Duque MD [Outside Practitioners] - 12/21/22 10:00 am Sarah Daniel MD [Resident] - 12/29/22 2:05 pm Diet: Heart Healthy and Low Fat Fluids: 1500ml (6 cups) Addtl Attending Provider Instructions: Mr Machado, You were hospitalized for upper abdominal pain, nausea, and vomiting. CT scan of the abdomen and pelvis at time of admission showed gallstones but the gall bladder did not appear sick. An ultrasound of your gall bladder was also obtained and this confirmed the gallstones but, again, the gall bladder did not show features of infection. Finally, a HIDA scan was obtained and this returned normal suggesting no infection of the gall bladder and normal function of the gall bladder. You were seen by both general surgery and [facility] while here. You will need close follow-up with [facility] after discharge. It is possible that your pain was a combination of factors including urinary tract infection, constipation, and/or possible gastritis. The urinary infection was treated with 3 days of IV antibiotics. Your constipation resolved without specific treatment. We gave you acid reducers in the event you had gastritis. Your LVAD parameters/values were given to the LVAD team at [place] on 12/17 and 12/18. These values suggested you were mildly dehydrated due to recent vomiting and inability to eat normally. A modest amount of IV fluid was given with improvement in some of your LVAD values. Your INR on day of discharge is 1.8. Your INR goal is 2-3. You received 1.5mg of coumadin on 12/16, 1.5mg of coumadin on 12/17, and 3mg of coumadin on 12/18. Recommendations - 1. For urinary tract infection - * cephalexin 500mg twice daily x 4 days, first dose TOMORROW AM 12/19/22 * you may take [id number] probiotics if desired to help prevent diarrhea; you can take these for about 1 week 2. For possible gastritis (stomach irritation) and suspected reflux disease take - * pantoprazole 40mg twice daily, first dose TONIGHT * you will need follow-up with [facility] in [place] ideally within 1-2 weeks for recheck of your stomach pains 3. For low magnesium (due to chronic use of diuretics) take - * magnesium oxide - 400mg once daily, you can start this today upon return home 4. Coumadin (warfarin) blood thinner - * you received today's coumadin dose at [facility] before leaving; thus, DO NOT TAKE any coumadin on 12/18/22 at home * AM of 12/19/22 - check your INR level as usual and wait for instructions from the [place] coumadin clinic for ongoing dosing 5. High fat foods/fried foods seemed to make your symptoms worse last week. Please follow a low-fat diet. See hand-out on low-fat foods. 6. Continue a "heart healthy" diet as previous (low sodium, no more than 2000mg in 24 hours). 7. Diuretics (water pills) - * RESUME your bumetanide 2mg upon return home (take your usual afternoon dose when you get home today) * RESUME your spironolactone tomorrow AM, 12/19/22 8. Check your weight every morning as previous on the same scale. Notify your rail track maintainer/LVAD team if you gain more than 3 pounds of weight in 1-2 days. Follow-up - see separate section Return to [facility] if - * you have fevers over 100 degrees * you have recurrent, severe abdominal pains * you have recurrent vomiting/nausea * you see black stool/tarry stool OR you have bright red blood in your stool * you have worsening shortness of breath * you have any concerns about infection of the LVAD device where it enters your skin (redness, pus, pain, etc) * any other concerns It was our pleasure to care for you! -Dr Joy Pending Studies at Discharge: No Stand-Alone Forms: My [facility], Smoking Cessation Medications and DC Order Prescriptions: New cephalexin 500 mg Capsule 500 mg PO BID 4 Days Qty: 8 0RF Rx Instructions: first dose AM of 12/19/22. pantoprazole 40 mg Tablet,Delayed Release (Dr/Ec) 40 mg PO BID Qty: 60 1RF magnesium oxide 400 mg magnesium tablet 400 mg PO DAILY Qty: 30 2RF Continued (DME) CPAP Supplies Misc See Rx Instructions .MEDSUPPLY Qty: 1 0RF Rx Instructions: CPAP supplies. G47.33 (DME) Auto Titrating CPAP Misc See Rx Instructions .MEDSUPPLY Qty: 1 0RF Rx Instructions: Auto PAP with 10-20mm H20. Lifetime usage. G47.33 cholecalciferol (vitamin D3) 50 mcg (2,000 unit) capsule 50 mcg PO DAILY omega-3 fatty acids 1,250 mg capsule 1,250 mg PO DAILY multivitamin Tablet 1 tab PO DAILY allopurinol 100 mg tablet 100 mg PO DAILY Rx Instructions: TOTAL DOSE 400 MG--TAKES WITH 300 MG TAB. potassium chloride [Klor-Con M20] 20 mEq tablet,ER particles/crystals 20 meq PO QAM Entresto 24-26 mg tablet 1 tab PO BID metoprolol succinate 25 mg tablet extended release 24 hr 25 mg PO QAM bumetanide 2 mg tablet 2 mg PO BID Qty: 1 0RF Rx Instructions: TAKES QAM & AFTERNOON atorvastatin 80 mg tablet 80 mg PO HS metolazone 5 mg tablet 5 mg PO DAILY PRN (Reason: WT GAIN) Rx Instructions: take with Bumetanide allopurinol 300 mg tablet 300 mg PO DAILY Rx Instructions: TOTAL DOSE 400 MG-- TAKES WITH 100 MG TAB. aspirin 81 mg Tablet,Delayed Release (Dr/Ec) 81 mg PO QAM (DME) blood-glucose meter [OneTouch Verio Meter] [facility] See Rx Instructions .Route Qty: 1 0RF Rx Instructions: As directed (DME) OneTouch Verio test strips Strip See Rx Instructions .Route Qty: 100 0RF Rx Instructions: As directed once daily (DME) lancets [OneTouch Delica Lancets] 33 gauge [facility] [place] See Rx Instructions .Route Qty: 100 0RF Rx Instructions: As directed once daily amiodarone 400 mg tablet 200 mg PO QAM Rx Instructions: 1/2 tablet dose Changed spironolactone 25 mg tablet 25 mg PO QAM Qty: 30 5RF Rx Instructions: resume AM of 12/19/22. warfarin 1 mg tablet 1 mg PO DIRECTED Qty: 1 0RF Rx Instructions: according to [place] [facility] Discharge Orders: Discharge Order (Routine); Ordered 12/18/22 Ordered By: Kieran Carson/Other Patient Handouts: Low-Fat Cooking Tips, ED Diet, Low Fat Admission Data Admit Date/Time: 12/17/22 16:02 Attending Provider: Kieran Joy Admit Provider: Reva Logan Primary Care Provider: Tamar Boss Other Providers: Reva Logan ; Ector Waggoner ; Brandon Light ; Rosalva Clark ; Carina Swift ; Alayna Shah ; Modesta Cullen ; Elton Drake ; Natan Duran ; Delano Knight ; Dionisio Post ; Gera Contreras ; Xiomara Ashford ; Drea Mehta ; Ashley Bolivar ; Jamaica Cameron ; Sunday Valenzuela ; Brady Contreras ; Amado Figueroa ; Sarah Denton ; Andrew Izquierdo Jr ; Frank Carver [facility] Other Interventions: Discharge Summary Assessment (RN) Last Done: 12/18/22 12:50 Coding Level of Care Code 60486 INP/OBS DISCH >30 MIN Diagnoses Abdominal pain R10.9 Gallstones K80.20 Acute UTI N39.0 GERD (gastroesophageal reflux disease) K21.9 Cardiomyopathy I42.9 LVAD (left ventricular assist device) present Z95.811 Severe obstructive sleep apnea G47.33 Hypomagnesemia E83.42 AICD (automatic cardioverter/defibrillator) present Z95.810 Abnormal LFTs R79.89 Morbid obesity E66.01 Diabetes mellitus type 2 in obese E11.69; E66.9 History of ventricular tachycardia Z86.79 Splenomegaly R16.1 Chronic anticoagulation Z79.01
[2022-12-19] MEDS ORDERED: cephALEXin 500 MG CAP PO SCH (09:00)
== END 2022-12-18 14:36 | disposition home health service (06) | DRG 690 ==
LOC: ED 23:17 → 2N 23:17 → SUATTDRO 12-16 06:26 → 2N 12-16 07:49 → 2E 12-16 09:51